=== PATIENT | male | born 1955 | race Caucasian/White ===

== ENCOUNTER 2018-03-13 03:09 | Observation (INO) | payer OTHER ==
[2018-03-13] MEDS ORDERED: NA CHLORIDE 0.9% 1,000 ML ONE (03:31)
[2018-03-13 03:58] LABS: Absolute Lymphocytes (CBC) 1.6 K/uL (0.7-4.9); Absolute Monocytes 0.6 K/uL (0.1-1.3); Absolute Neutrophil 5.9 K/uL (1.8-8.0); Eosinophils % 5.3 % (0-4.4); Lymphocytes % 18.7 % (15.3-44.8); MCH 32.9 pg (27.0-35.0); MCV 92.8 fL (80-100); MPV 9.3 fL (7.6-11.3); Monocytes % 6.4 % (3.3-12.3); RBC Red Blood Cell Count 4.74 M/uL (4.33-5.43)
--- NOTE | 2018-03-13 03:58 | ER ---
Nurse's Notes [facility] Name: Kd Campbell Age: 62 yrs Sex: Male : 1955 Arrival Date: 03/13/2018 Time: 03:11 Bed 4 Private MD: Diagnosis: Syncope and collapse;Chest pain, unspecified;Unspecified kidney failure;Non-ST elevation (NSTEMI) myocardial infarction Presentation: 03/13 03:11 Presenting complaint: Patient states: he was working on his computer and began to feel aa1 funny so he got up to get a glass of milk and the next thing he remembers is waking up on the kitchen floor. States, "I think my blood pressure bottomed out." Denies any injuries. Transition of care: patient was not received from another setting of care. Onset of symptoms was March 13, 2018. Risk Assessment: Do you want to hurt yourself or someone else? Patient reports no desire to harm self or others. Initial Sepsis Screen: Does the patient meet any 2 criteria? No. Patient's initial sepsis screen is negative. Does the patient have a suspected source of infection? No. Patient's initial sepsis screen is negative. Care prior to arrival: Glucose check: 144. 03:11 Method Of Arrival: EMS: [facility] aa1 03:11 Acuity: VOLODYMYR 3 aa1 Triage Assessment: 03:19 General: Appears in no apparent distress. comfortable, Behavior is calm, cooperative, aa1 appropriate for age. 03:45 Neuro: Reports a syncopal episode. jd3 Historical: - Allergies: 03:19 bee venom (honey bee); aa1 03:19 Clonidine; aa1 03:19 Lexapro; aa1 03:19 PENICILLINS; aa1 03:19 Wellbutrin; aa1 - Home Meds: 03:19 hydralazine 50 mg oral tab 1 tab 2 times per day [Active]; Albuterol Inhl [Active]; aa1 carvedilol 25 mg oral tab 1 tab 2 times per day [Active]; isosorbide mononitrate 30 mg Oral Tb24 1 tab once daily [Active]; hydrochlorothiazide 25 mg Oral tab 1 tab once daily [Active]; Nifedipine ER Oral 90 mg daily [Active]; atorvastatin 40 mg oral tab 1 tab once daily [Active]; - PMHx: 03:19 Anxiety; Hypertension; MANIC DEPRESSION; pnemonia; aa1 - PSHx: 03:19 Angioplasty; aa1 - Immunization history:: Pneumococcal vaccine is up to date, Flu vaccine is up to date. - Social history:: Smoking status: Patient uses tobacco products, chewing tobacco. - Ebola Screening: : No symptoms or risks identified at this time. - Family history:: not pertinent. Screenin:44 Abuse screen: Denies threats or abuse. Nutritional screening: No deficits noted. jd3 Tuberculosis screening: No symptoms or risk factors identified. Fall Risk Fall in past 12 months (25 points). IV access (20 points). Ambulatory Aid- None/Bed Rest/Nurse Assist (0 pts). Gait- Normal/Bed Rest/Wheelchair (0 pts) Mental Status- Oriented to own ability (0 pts). Total Alcaraz Fall Scale indicates High Risk Score (45 or more points). Fall prevention measures have been instituted. Side Rails Up X 2 Placed Close to Nursing Station Frequent Obs/Assessments Occuring Family Present and informed to notify staff if the need to leave the bedside. Assessment: 03:42 General: Appears uncomfortable, Behavior is cooperative, appropriate for age. Pain: jd3 Complains of pain in right shoulder, left shoulder and chest Pain currently is 5 out of 10 on a pain scale. Quality of pain is described as aching, pressure, Is intermittent. Neuro: Level of Consciousness is awake, alert, obeys commands, Oriented to person, place, time, situation, Moves all extremities. Speech is normal, Facial symmetry appears normal, Pupils are PERRLA, Intact. Cardiovascular: Heart tones S1 S2 present Capillary refill < 3 seconds Patient's skin is warm and dry. Rhythm is regular. Respiratory: Airway is patent Respiratory effort is even, unlabored, Respiratory pattern is regular, symmetrical, Breath sounds are clear bilaterally. GI: Abdomen is round Bowel sounds present X 4 quads. : No signs and/or symptoms were reported regarding the genitourinary system. EENT: No signs and/or symptoms were reported regarding the EENT system. Derm: Skin is intact, Skin is dry, Skin is normal, Skin temperature is warm. Musculoskeletal: Circulation, motion, and sensation intact. Range of motion: intact in all extremities. 05:21 Reassessment: Patient appears in no apparent distress at this time. Patient and/or jd3 family updated on plan of care and expected duration. Pain level reassessed. Patient is alert, oriented x 3, equal unlabored respirations, skin warm/dry/pink. 06:36 Reassessment: Patient appears in no apparent distress at this time. Patient and/or jd3 family updated on plan of care and expected duration. Pain level reassessed. Patient is alert, oriented x 3, equal unlabored respirations, skin warm/dry/pink. pt reported understanding of need for admission. Vital Signs: 03:19 BP 181 / 96; Pulse 73; Resp 18; Temp 97.6; Pulse Ox 98% on R/A; Weight 92.53 kg; Height aa1 5 ft. 6 in. (167.64 cm); Pain 4/10; 05:20 BP 135 / 77; Pulse 64; Resp 17 S; Pulse Ox 97% on R/A; jd3 06:35 BP 163 / 77; Pulse 74; Resp 16 S; Pulse Ox 98% on R/A; jd3 03:19 Body Mass Index 32.93 (92.53 kg, 167.64 cm) aa1 ED Course: 03:11 Patient arrived in ED. aa1 03:13 Triage completed. aa1 03:15 X-ray completed. Portable x-ray completed in exam room. Patient tolerated procedure kw well. 03:16 XRAY Chest (1 view) In Process Unspecified. EDMS 03:17 Jameson Garcia MD is Attending Physician. cp 03:19 Arm band placed on right wrist. Patient placed in an exam room, on a stretcher. aa1 03:35 Inserted saline lock: 20 gauge in left antecubital area, using aseptic technique. Blood jd3 collected. placed by Michael CASTRO. 03:40 Osmany Corea RN is Primary Nurse. jd3 03:45 Patient has correct armband on for positive identification. Placed in gown. Bed in low jd3 position. Call light in reach. Side rails up X2. Adult w/ patient. 03:55 Karma Vera MD is Hospitalizing Provider. [facility] 05:00 Patient moved to SC via wheelchair. kw1 05:21 CT completed. Patient tolerated procedure well. Patient moved back from CT. kw1 06:33 No provider procedures requiring assistance completed. Patient admitted, IV remains in jd3 place. Administered Medications: 03:40 Drug: NS 0.9% 1000 ml Route: IV; Rate: 125 ml/hr; Site: left antecubital; j 04:52 Follow up: Response: No adverse reaction; IV Status: Infusion continued upon admission jd3 04:20 Drug: Xopenex 1.25 mg Route: Inhalation; jd3 04:51 Follow up: Response: No adverse reaction jd3 04:20 Drug: AtroVENT Aerosol 0.5 mg Route: Inhalation; jd3 04:51 Follow up: Response: No adverse reaction jd3 04:20 Drug: Aspirin 162 mg Route: PO; jd3 04:52 Follow up: Response: No adverse reaction jd3 06:18 Drug: Potassium Effervescent Tablet 25 mEq Route: PO; 06:36 Follow up: Response: No adverse reaction jd3 06:18 Drug: Lovenox 1 mg/kg {Note: per Corona ACSTRO.} Route: Sub-Q; Site: abdomen; 06:36 Follow up: Response: No adverse reaction [facility]ma Point of Care Testin:34 none ordered jcassi Ranges: Outcome: 03:57 Decision to Hospitalize by Provider. diana 06:33 Admitted to Med/surg accompanied by nurse, via wheelchair, room 206, Report called to uzma Berrios RN 06:33 Condition: stable 06:33 Instructed on the need for admit, Demonstrated understanding of instructions. 06:37 Patient left the ED. uzma Signatures: Dispatcher [employer] EDMS Day Ugarte, RN RN aa1 Jameson Garcia MD MD cha Chretien, Felicia, RN RN fc Whitley, Kimberlee kw Page, Corey, PA PA cp Davies, Jonathon, RN RN jd3 Wilhelm, Kimberly kw1
--- NOTE | 2018-03-13 03:58 | EDPHYS ---
Physician Documentation [facility] Name: Kd Campbell Age: 62 yrs Sex: Male : 1955 Arrival Date: 03/13/2018 Time: 03:11 Bed 4 Private MD: ED Physician Jameson Garcia HPI: 03/13 03:50 This 62 yrs old Male presents to ER via EMS with complaints of Syncope. diana 03:50 The patient has experienced syncope, became unresponsive, collapsed. Onset: The diana symptoms/episode began/occurred just prior to arrival, this morning. Duration: This was a single episode, that lasted an unknown period of time. Context: the episode(s) was witnessed, by no one, occurred at home, occurred while the patient was walking, Just prior to the episode the patient experienced no apparent symptoms. Associated injury: The patient did not suffer any apparent associated injury. Associated signs and symptoms: Pertinent positives: pleuritic chest pain. The patient has experienced similar episodes in the past, a few times. Historical: - Allergies: 03:19 bee venom (honey bee); aa1 03:19 Clonidine; aa1 03:19 Lexapro; aa1 03:19 PENICILLINS; aa1 03:19 Wellbutrin; aa1 - Home Meds: 03:19 hydralazine 50 mg oral tab 1 tab 2 times per day [Active]; Albuterol Inhl [Active]; aa1 carvedilol 25 mg oral tab 1 tab 2 times per day [Active]; isosorbide mononitrate 30 mg Oral Tb24 1 tab once daily [Active]; hydrochlorothiazide 25 mg Oral tab 1 tab once daily [Active]; Nifedipine ER Oral 90 mg daily [Active]; atorvastatin 40 mg oral tab 1 tab once daily [Active]; - PMHx: 03:19 Anxiety; Hypertension; MANIC DEPRESSION; pnemonia; aa1 - PSHx: 03:19 Angioplasty; aa1 - Immunization history:: Pneumococcal vaccine is up to date, Flu vaccine is up to date. - Social history:: Smoking status: Patient uses tobacco products, chewing tobacco. - Ebola Screening: : No symptoms or risks identified at this time. - Family history:: not pertinent. ROS: 03:50 Constitutional: Negative for fever, chills, and weight loss, Eyes: Negative for injury, diana pain, redness, and discharge, ENT: Negative for injury, pain, and discharge, Neck: Negative for injury, pain, and swelling, Respiratory: Negative for shortness of breath, cough, wheezing, and pleuritic chest pain, Abdomen/GI: Negative for abdominal pain, nausea, vomiting, diarrhea, and constipation, Back: Negative for injury and pain, : Negative for injury, bleeding, discharge, and swelling, MS/Extremity: Negative for injury and deformity, Skin: Negative for injury, rash, and discoloration, Psych: Negative for depression, anxiety, suicide ideation, homicidal ideation, and hallucinations, Allergy/Immunology: Negative for hives, rash, and allergies, Endocrine: Negative for neck swelling, polydipsia, polyuria, polyphagia, and marked weight changes, Hematologic/Lymphatic: Negative for swollen nodes, abnormal bleeding, and unusual bruising. 03:50 Cardiovascular: Positive for chest pain. 03:50 Respiratory: Positive for cough, with no reported sputum. Exam: 03:50 Constitutional: This is a well developed, well nourished patient who is awake, alert, diana and in no acute distress. Head/Face: Normocephalic, atraumatic. Eyes: Pupils equal round and reactive to light, extra-ocular motions intact. Lids and lashes normal. Conjunctiva and sclera are non-icteric and not injected. Cornea within normal limits. Periorbital areas with no swelling, redness, or edema. ENT: Nares patent. No nasal discharge, no septal abnormalities noted. Tympanic membranes are normal and external auditory canals are clear. Oropharynx with no redness, swelling, or masses, exudates, or evidence of obstruction, uvula midline. Mucous membranes moist. Neck: Trachea midline, no thyromegaly or masses palpated, and no cervical lymphadenopathy. Supple, full range of motion without nuchal rigidity, or vertebral point tenderness. No Meningismus. Chest/axilla: Normal chest wall appearance and motion. Nontender with no deformity. No lesions are appreciated. Respiratory: Lungs have equal breath sounds bilaterally, clear to auscultation and percussion. No rales, rhonchi or wheezes noted. No increased work of breathing, no retractions or nasal flaring. Abdomen/GI: Soft, non-tender, with normal bowel sounds. No distension or tympany. No guarding or rebound. No evidence of tenderness throughout. Back: No spinal tenderness. No costovertebral tenderness. Full range of motion. Male : Normal genitalia with no discharge or lesions. Skin: Warm, dry with normal turgor. Normal color with no rashes, no lesions, and no evidence of cellulitis. MS/ Extremity: Pulses equal, no cyanosis. Neurovascular intact. Full, normal range of motion. Psych: Awake, alert, with orientation to person, place and time. Behavior, mood, and affect are within normal limits. 03:50 Cardiovascular: Rate: normal, Rhythm: regular, Pulses: Pulses are 4+ in bilateral radial, brachial, femoral, popliteal, posterior tibial and and dorsalis pedis arteries.. Heart sounds: normal, Edema: is not appreciated, JVD: is not appreciated. 03:52 Musculoskeletal/extremity: DVT Exam: No signs of deep vein thrombosis. no pain, no diana swelling, no tenderness, negative Homans' sign noted on exam, no appreciated bluish discoloration, no erythema, no increased warmth. Vital Signs: 03:19 BP 181 / 96; Pulse 73; Resp 18; Temp 97.6; Pulse Ox 98% on R/A; Weight 92.53 kg; Height aa1 5 ft. 6 in. (167.64 cm); Pain 4/10; 05:20 BP 135 / 77; Pulse 64; Resp 17 S; Pulse Ox 97% on R/A; jd3 06:35 BP 163 / 77; Pulse 74; Resp 16 S; Pulse Ox 98% on R/A; jd3 03:19 Body Mass Index 32.93 (92.53 kg, 167.64 cm) aa1 MDM: 03:25 Patient medically screened. [facility] 03:58 Data reviewed: vital signs, nurses notes, lab test result(s), EKG, radiologic studies, [facility] CT scan, plain films. 03/13 03:13 Order name: Basic Metabolic Panel; Complete Time: 06:03 cp 03/13 03:13 Order name: BNP; Complete Time: 06:03 cp 03/13 03:13 Order name: CBC with Diff; Complete Time: 06:03 cp 03/13 03:13 Order name: Ckmb; Complete Time: 06:03 cp 03/13 03:13 Order name: CPK; Complete Time: 06: cp 03/13 03:13 Order name: LFT's; Complete Time: 06:03 cp 03/13 03:13 Order name: Magnesium; Complete Time: 06:03 03/13 03:13 Order name: PT-INR; Complete Time: 06:03 03/13 03:13 Order name: Ptt, Activated; Complete Time: 06:03 03/13 03:13 Order name: Troponin (emerg Dept Use Only); Complete Time: 06:03 03/13 03:27 Order name: Urine Culture [facility] 03/13 03:29 Order name: Lipase; Complete Time: 06:03 [facility] 03/13 05:31 Order name: Urine Dipstick--Ancillary (enter results) rg2 03/13 06:14 Order name: Urine Dipstick-Ancillary EDMS 03/13 03:13 Order name: XRAY Chest (1 view) 03/13 03:13 Order name: EKG; Complete Time: 03:13 cp 03/13 03:13 Order name: Cardiac monitoring; Complete Time: 03:28 cp 03/13 03:13 Order name: EKG - Nurse/Tech; Complete Time: 03:28 cp 03/13 03:13 Order name: IV Saline Lock; Complete Time: 03:40 cp 03/13 03:13 Order name: Labs collected and sent; Complete Time: 03:40 cp 03/13 03:27 Order name: CT Head Brain wo Cont [facility] 03/13 03:50 Order name: CT Aorta for Dissection [facility] 03/13 04:03 Order name: Echo with Doppler [facility] 03/13 04:03 Order name: Carotid Artery Bilateral EDMS 03/13 03:13 Order name: O2 Per Protocol; Complete Time: 03:28 cp 03/13 03:13 Order name: O2 Sat Monitoring; Complete Time: 03:28 cp 03/13 03:13 Order name: Urine Dipstick-Ancillary (obtain specimen); Complete Time: 05:24 cp Administered Medications: 03:40 Drug: NS 0.9% 1000 ml Route: IV; Rate: 125 ml/hr; Site: left antecubital; jd3 04:52 Follow up: Response: No adverse reaction; IV Status: Infusion continued upon admission jd3 04:20 Drug: Xopenex 1.25 mg Route: Inhalation; jd3 04:51 Follow up: Response: No adverse reaction jd3 04:20 Drug: AtroVENT Aerosol 0.5 mg Route: Inhalation; jd3 04:51 Follow up: Response: No adverse reaction jd3 04:20 Drug: Aspirin 162 mg Route: PO; jd3 04:52 Follow up: Response: No adverse reaction jd3 06:18 Drug: Potassium Effervescent Tablet 25 mEq Route: PO; 06:36 Follow up: Response: No adverse reaction jd3 06:18 Drug: Lovenox 1 mg/kg {Note: per Corona CASTOR.} Route: Sub-Q; Site: abdomen; 06:36 Follow up: Response: No adverse reaction jd3 Point of Care Testin:34 none ordered jd3 Ranges: Critical Glucose Levels:Adult <50 mg/dl or >400 mg/dl <40 mg/dl or >180 mg/dl Disposition: 03/13/18 03:57 Hospitalization ordered by Karma Vera for Inpatient Admission. Preliminary diagnosis are Syncope and collapse, Chest pain, unspecified, Unspecified kidney failure, Non-ST elevation (NSTEMI) myocardial infarction. - Bed requested for Telemetry/MedSurg (observation). - Status is Inpatient Admission. jd3 - Condition is Stable. - Problem is new. - Symptoms have improved. UTI on Admission? No Signatures: Dispatcher [employer] EDMS Sara Barbour RN RN kl Kern, Alissa, RN RN aa1 Jameson Garcia MD MD cha Chretien, Felicia, RN RN fc Page, Corey, PA PA cp Davies, Jonathon, RN RN jd3 Corrections: (The following items were deleted from the chart) 05:14 03:57 Hospitalization Ordered by Karma Vera MD for Inpatient Admission. Preliminary diagnosis is Syncope and collapse; Chest pain, unspecified. Bed requested for Telemetry/MedSurg (observation). Status is Inpatient Admission. Condition is Stable. Problem is new. Symptoms have improved. UTI on Admission? No. diana 06:09 05:14 03/13/2018 03:57 Hospitalization Ordered by Karma Vera MD for Inpatient [facility] Admission. Preliminary diagnosis is Syncope and collapse; Chest pain, unspecified. Bed requested for Telemetry/MedSurg (observation). Status is Inpatient Admission. Condition is Stable. Problem is new. Symptoms have improved. UTI on Admission? No. kl 06:10 06:09 03/13/2018 03:57 Hospitalization Ordered by Karma Vera MD for Inpatient diana Admission. Preliminary diagnosis is Syncope and collapse; Chest pain, unspecified; Unspecified kidney failure. Bed requested for Telemetry/MedSurg (observation). Status is Inpatient Admission. Condition is Stable. Problem is new. Symptoms have improved. UTI on Admission? No. diana 06:37 06:10 03/13/2018 03:57 Hospitalization Ordered by Karma Vera MD for Inpatient jd3 Admission. Preliminary diagnosis is Syncope and collapse; Chest pain, unspecified; Unspecified kidney failure; Non-ST elevation (NSTEMI) myocardial infarction. Bed requested for Telemetry/MedSurg (observation). Status is Inpatient Admission. Condition is Stable. Problem is new. Symptoms have improved. UTI on Admission? No. diana
[2018-03-13 03:59] LABS: Protime INR 0.93
[2018-03-13] MEDS ORDERED: IPRATROPIUM BROM 0.5MG/2.5ML ONE (03:59)
[2018-03-13] MEDS ORDERED: LEVALBUTEROL 1.25 MG/3 ML NEB ONE (03:59)
[2018-03-13] MEDS ORDERED: ASPIRIN 81 MG CHEWABLE TABLET ONE (04:02)
[2018-03-13 04:09] LABS: Potassium 3.2 mEq/L (3.6-5.0)
[2018-03-13 04:11] LABS: CKMB Creatine Kinase MB 3.2 ng/ml (0.3-4.0)
[2018-03-13 04:15] LABS: Albumin 4.8 g/dL (3.2-5.5); Bilirubin Direct 0.2 mg/dL (0-0.2); Bilirubin Total 1.8 mg/dL (0.3-1.2)
[2018-03-13 04:16] LABS: Magnesium 1.9 mg/dL (1.8-2.5)
--- NOTE | 2018-03-13 05:09 | P.HP ---
Certification for Inpatient Patient admitted to: Observation With expected LOS: <2 Midnights Practitioner: I am a practitioner with admitting privileges, knowledge of patient current condition, hospital course, and medical plan of care. Services: Services provided to patient in accordance with Admission requirements found in Title 42 Section 412.3 of the Code of Federal Regulations Patient History Date of Service: 03/13/18 Reason for admission: syncope History of Present Illness: Mr Campbell is a 62 years old male with history of HTN, CAD s/p stent placement, CKD, who yesterday morning had an episode of chest pain lasting for 20 minutes and resolving by itself. The pain was located in his left side of the chest, radiated to left shoulder and back, described as burning sensation, 7/10 of intensity. Then about 1:30 AM of today, he was on the computer, start to feel funny, had chest pain again, he went to the kitchen to drink some milk and subsequently collapse. He woke up on the floor. He denied any palpitation before passing out. At arrival to ED he was still complaining of chest pain, trop I 0.13. He states that about 2300 last night took Carvedilol and then cough syrup, and this combination drop his blood pressure and for that reason he collapsed. Allergies venom-honey bee [bee venom (honey bee)] Allergy (Intermediate, Verified 03:10) Anaphylaxis Penicillins Allergy (Mild, Verified 09/26/12 21:52) Rash bupropion [From Wellbutrin] Allergy (Verified 04/14/16 23:15) Unknown bupropion HCl [From Zyban] Adverse Reaction (Intermediate, Verified 04/15/15 02: 58) Nausea/Vomiting trazodone Adverse Reaction (Intermediate, Verified 01/31/12 03:11) Rash clonidine Adverse Reaction (Verified 04/15/15 02:58) Shortness of breath cyclobenzaprine HCl [From Flexeril] Adverse Reaction (Verified 04/15/15 02:58) Nausea/Vomiting escitalopram oxalate [From Lexapro] Adverse Reaction (Verified 01/31/12 03:11) Rash Home Medications: LORazepam [Ativan*] 1 mg PO Q12HR 04/14/16 Amlodipine [Norvasc*] 10 mg PO DAILY #30 tab 04/17/16 Benazepril HCl 40 mg PO DAILY #30 tablet 04/17/16 Hydralazine HCl [Apresoline] 50 mg PO TID #90 tablet 04/17/16 Metoprolol Tartrate [Lopressor] 100 mg PO BID #60 tablet 04/17/16 hydroCHLOROthiazide [Hydrodiuril*] 25 mg PO DAILY #30 tab 04/17/16 - Past Medical/Surgical History Diabetic: No -: HTN -: Depression -: Anxiety -: Pnemonia -: CAD -: Angioplasty - Family History Mother -: Hypertension, Cancer Father -: Heart disease - Social History Smoking Status: Current some day smoker Counseled patient to stop smoking for: less than 10 minutes Alcohol use: No CD- Drugs: No Caffeine use: Yes Place of Residence: Home Review of Systems 10-point ROS is otherwise unremarkable Physical Examination - Physical Exam General: Alert, In no apparent distress HEENT: Atraumatic, PERRLA, Mucous membr. moist/pink, EOMI, Sclerae nonicteric Neck: Supple, 2+ carotid pulse no bruit, No LAD, Without JVD or thyroid abnormality Respiratory: Clear to auscultation bilaterally, Normal air movement Cardiovascular: Regular rate/rhythm, Normal S1 S2 Gastrointestinal: Normal bowel sounds, No tenderness Musculoskeletal: No tenderness Integumentary: No rashes Neurological: Normal speech, Normal strength at 5/5 x4 extr, Normal tone, Normal affect Lymphatics: No axilla or inguinal lymphadenopathy - Studies Laboratory Data (last 24 hrs) 03/13/18 03:35: Lipase 34 03/13/18 03:35: PT 11.0, INR 0.93, APTT 27.3 03/13/18 03:35: WBC 8.6, Hgb 15.6, Hct 44.0, Plt Count 198 03/13/18 03:35: B-Natriuretic Peptide 50 03/13/18 03:35: Sodium 134 L, Potassium 3.2 L, BUN 36 H, Creatinine 1.57 H, Glucose 114, Magnesium 1.9, Total Bilirubin 1.8 H, AST 31, ALT 26, Alkaline Phosphatase 67 Assessment and Plan - Problems (Diagnosis) (1) Syncope Current Visit: Yes Status: Acute Qualifiers: Syncope type: unspecified Qualified Code(s): R55 - Syncope and collapse (2) CAD (coronary artery disease) Current Visit: Yes Status: Acute Qualifiers: Coronary Disease-Associated Artery/Lesion type: [place] artery [place] vs. transplanted heart: [place] heart Associated angina: angina presence unspecified Qualified Code(s): I25.10 - Atherosclerotic heart disease of [place] coronary artery without angina pectoris (3) HTN (hypertension) Current Visit: Yes Status: Acute Qualifiers: Hypertension type: essential hypertension Qualified Code(s): I10 - Essential (primary) hypertension (4) CKD (chronic kidney disease), stage III Onset Date: 04/16/16 Current Visit: No Status: Acute (5) Chest pain Onset Date: 04/16/16 Current Visit: No Status: Acute Qualifiers: Chest pain type: precordial pain Qualified Code(s): R07.2 - Precordial pain - Plan Mr Campbell will be admitted to the hospital due to syncope. He complain of chest pain and has history of CAD. Trop I is elevated, EKG shows SR with Q waves on inferior leads. He has CKD, will order serial cardiac enzymes to evaluate progress, EKG, consult cardiology. Pending CT angio. - Advance Directives Does patient have a Living Will: No Does patient have a Durable POA for Healthcare: No - Code Status/Comfort Care Code Status Assessed: Yes Code Status: Full Code
[2018-03-13] MEDS ORDERED: POTASSIUM 25 MEQ EFFERV TAB ONE (06:10)
[2018-03-13 06:14] LABS: Urine Blood NEGATIVE (NEG); Urine Glucose NEGATIVE (NEG); Urine Protein 2+ (NEG); Urine Specific Gravity 1.015 (1.005-1.030)
[2018-03-13] MEDS ORDERED: ENOXAPARIN 100 MG/ML SYR SQ ONE (06:15)
[2018-03-13 06:45] VITALS: BMI 31.1
[2018-03-13 07:00] VITALS: O2SAT 98
[2018-03-13] MEDS ORDERED: ACETAMINOPHEN 500 MG TAB PO PRN (07:21)
--- NOTE | 2018-03-13 08:24 | EKG ---
Test Date: 2018-03-13 Test Time: 03:25:09 Supervisor Microwave: ALVA MEASUREMENT RESULTS: Intervals: Rate: 71 OK: 164 QRSD: 80 QT: 414 QTc: 449 [place]: P: 44 OK: 164 QRS: -9 T: 70 INTERPRETIVE STATEMENTS: Normal sinus rhythm Inferior infarct, age undetermined Possible Anterior infarct, age undetermined Abnormal ECG Compared to ECG 04/15/2016 05:53:14 Myocardial infarct finding now present Left ventricular hypertrophy no longer present ST (T wave) deviation no longer present Possible ischemia no longer present Prolonged QT interval no longer present Electronically Signed On 03-13-18 08:24:21 CDT by Ehsan Ramirez
[2018-03-13 08:37] LABS: HDL Cholesterol 38 mg/dL (27-67); LDL Cholesterol, Calculated ND (<130)
[2018-03-13 08:57] LABS: LDL, Direct 65 mg/dl (<130)
[2018-03-13] MEDS ORDERED: ENOXAPARIN 80 MG/0.8 ML SQ SCH ×2 (09:00→18:00)
--- NOTE | 2018-03-13 09:00 | RAD REPORT ---
EXAM DESCRIPTION: CT - Head Brain Wo Cont - 03/13/2018 7:17 am CLINICAL HISTORY: Syncope COMPARISON: 04/16/2016, 04/14/2016 TECHNIQUE: All CT scans are performed using dose optimization technique as appropriate and may inclu de automated exposure control or mA/KV adjustment according to patient size. FINDINGS: No intracranial hemorrhage, hydrocephalus or extra-axial fluid collection.Moderate general ized brain atrophy is present with moderate periventricular and deep white matter chronic microvascul ar ischemic changes.No areas of brain edema or evidence of midline shift. The paranasal sinuses and mastoids are clear. The calvarium is intact. IMPRESSION: No acute intracranial abnormality. Moderately progressive periventricular and deep white matter chronic microvascular ischemic changes s uspected since 2016. Followup MR imaging of the brain may be considered.
--- NOTE | 2018-03-13 09:48 | RAD REPORT ---
EXAM DESCRIPTION: RAD - Chest Single View - 03/13/2018 3:18 am CLINICAL HISTORY: Syncope, chest pain. COMPARISON: 04/14/2016 FINDINGS: Portable technique limits examination quality. The lungs are grossly clear. The heart is upper limit normal in size. No displaced fractures. IMPRESSION: No acute intrathoracic process suspected.
--- NOTE | 2018-03-13 10:13 | RAD REPORT ---
EXAM DESCRIPTION: CT - Angio Aorta For Dissection - 03/13/2018 7:19 am CLINICAL HISTORY: Chest pain radiating to the back. CHEST PAIN COMPARISON: CTANGIO AORTA FOR DISSECTION dated 08/26/2014 TECHNIQUE: CT angiography of the aorta was performed with volume rendering. All CT scans are performed using dose optimization technique as appropriate and may include automated exposure control or mA/KV adjustment according to patient size. FINDINGS: A left aortic arch is present with normal branching pattern of the great vessels.No acute aortic finding is seen such as aneurysm, penetrating ulcer or dissection. The celiac axis, SMA, ADALGISA and renal arteries are widely patent. No evidence of pulmonary embolism. Small thyroid nodule inferior left lobe appears unchanged. Mildly prominent lymph nodes in the medias tinum and hilar regions also appears stable since 2014. The lungs are clear. Diffuse fatty liver is seen. Tiny cyst is likely present in the right lobe of the liver superiorly. N o aggressive liver lesion or biliary dilatation.The spleen, pancreas, left adrenal gland and kidneys are within normal limits for arterial phase imaging.Stable right adrenal in nodule since comparative study. No bowel obstruction, free fluid or abscess.Sigmoid diverticulosis coli without diverticulitis. Sarina l appendix.No pathologic enlarged lymphadenopathy identified. No fracture or worrisome bone lesion seen. IMPRESSION: No acute aortic finding is demonstrated.
--- NOTE | 2018-03-13 10:41 | RAD REPORT ---
EXAM DESCRIPTION: VAS - CP - 03/13/2018 9:04 am CLINICAL HISTORY: syncope COMPARISON: CAROTID ARTERY BILATERAL dated 05/15/2012 TECHNIQUE: Real-time sonographic evaluation of both carotid systems was performed. Doppler interroga tion was performed with waveform tracing bilaterally. FINDINGS: Normal high resistance waveforms are noted in both external carotid arteries. The common c arotid arteries and internal carotid arteries show normal low resistance waveforms. Small mild hard plaque seen proximal left common carotid artery. No significant internal carotid esthela ry plaquing. Peak systolic and end diastolic velocity values and the ICA/CCA ratios are in the non-he modynamically significant range. Antegrade flow seen in both vertebral arteries. IMPRESSION: No significant atherosclerotic changes noted. No evidence of a hemodynamically significant stenosis.
--- NOTE | 2018-03-13 12:45 | ECHO ---
HEIGHT: 5 ft 6 in WEIGHT: 193 lb 1.6 oz DATE OF STUDY: 03/13/[address]: Jameson Garcia MD 2-DIMENSIONAL: YES M.MODE: YES DOPPLER: YES COLOR FLOW: YES TDS: NO PORTABLE: NO DEFINITY: NO BUBBLE STUDY: NO DIAGNOSIS: SYNCOPE CARDIAC HISTORY: CATHERIZATION: NO SURGERY: NO PROSTHETIC VALVE: NO PACEMAKER: NO MEASUREMENTS (cm) DIASTOLIC (NORMALS) SYSTOLIC (NORMALS) IVSd 1.3 (0.6-1.2) LA Diam 3.9 (1.9-4.0) LVEF 69% LVIDd 4.1 (3.5-5.7) LVIDs 2.5 (2.0-3.5) %FS 38% LVPWd 1.3 (0.6-1.2) Ao Diam 3.2 (2.0-3.7) 2 DIMENSIONAL ASSESSMENT: RIGHT ATRIUM: NORMAL LEFT ATRIUM: NORMAL RIGHT VENTRICLE: NORMAL LEFT VENTRICLE: NORMAL TRICUSPID VALVE: NORMAL MITRAL VALVE: NORMAL PULMONIC VALVE: NORMAL AORTIC VALVE: NORMAL PERICARDIAL EFFUSION: NONE AORTIC ROOT: NORMAL LEFT VENTRICULAR WALL MOTION: NORMAL. DOPPLER/COLOR FLOW: NORMAL COMMENTS: NORMAL 2D ECHO WITH DOPPLER. NO WALL MOTION ABNORMALITY. NO EFFUSION. TECHNOLOGIST: CELI RAYMOND
[2018-03-13 17:22] VITALS: BP 178/82; TEMP 97.6
[2018-03-14] MEDS ORDERED: NICOTINE 21 MG/PAT TD SCH (09:00)
--- NOTE | 2018-03-14 12:55 | CON ---
Date of Consultation: 03/13/2018 Reason For Consultation: Chest pain and presyncope. Additional Admitting Physician: Dr. Ornelas. History Of Present Illness: Mr. Campbell is a 62-year-old white male, has had a normal heart catheteri zation in the past. Has a history of hypertension, for which he takes Coreg and hydrochlorothiazide. Has multiple allergies. Apparently, he had sharp chest pain that is stabbing, pleuritic type with some allergies and lasted about 8 hours. He took a nap, awoke, took his Coreg, and then took some ov [id number] allergy medication, after which he felt like he was going to faint. Denied PND, ortho pnea, pedal edema, palpitation. Denied any nausea, vomiting, diaphoresis. Denied any fever or chill s. Past Medical History: Positive for asthma, hypertension, and diabetes that is well controlled on med ication. Medications: At home include Coreg and hydrochlorothiazide. Review of Systems: Negative. Social History: Negative. Family History: Negative. Allergies: HE IS ALLERGIC TO ZYBAN, CLONIDINE, TRAZODONE, LEXAPRO, WELLBUTRIN, AND HONEY BEE VENOM. Physical Examination: Vital signs: Stable, afebrile. HEENT: Negative. Neck: Supple. No bruits. Chest: Clear to auscultation and percussion. Cardiac: revealed a regular rhythm and rate without any murmurs, gallops, or rubs. Abdomen: Benign. Extremities: Revealed no clubbing, cyanosis, or edema. Laboratory Data: All within normal limit. Echocardiogram was normal. Carotid Doppler was unremarka ble. Impression And Plan: 1.I think Mr. Campbell's symptoms may have been secondary to orthostatic hypotension. As far as the p resyncope is concerned may have been a combination of Coreg, hydrochlorothiazide, and allergy medicin es. I would not recommend any further cardiac workup. He had a negative heart catheterization in past. 2.Hypertension, well controlled. 3.Diabetes, well controlled. He can go home on as far as I am concerned. His chest pain is definitely pleuritic and noncardiac an d does not require a stress test at this point. MARIE/RAYMOND Voice ID: [id number] Report ID: [id number]
== END 2018-03-13 17:48 | disposition home or self-care (01) ==
LOC: ER 03:09 → ERHOLD 04:00 → 2ND 05:59
PROVIDERS: ADMIT Internal Medicine; ATTEND Internal Medicine
DX: R55 Syncope and collapse (principal); R07.9 Chest pain, unspecified; I25.10 Atherosclerotic heart disease of native coronary artery without angina pectoris; I12.9 Hypertensive chronic kidney disease with stage 1 through stage 4 chronic kidney disease, or unspecified chronic kidney disease; N18.3 Chronic kidney disease, stage 3 (moderate); Z95.5 Presence of coronary angioplasty implant and graft; Z88.0 Allergy status to penicillin; Z91.030 Bee allergy status
CPT/HCPCS: 36415; 70450; 71045; 71275; 74175; 80048; 80061; 80076; 81003; 82550; 82553; 83690; 83721; 83735; 83880; 84484 ×2; 85025; 85610; 85730; 87077; 87086; 87088; 87186; 93005; 93306; 93880; 96360; 96372; 99285; J1650 ×2; J7030; Q9967; G0378

== ENCOUNTER 2023-01-22 10:03 | Emergency (ER) | payer OTHER ==
--- OUTSIDE RECORDS SUMMARY | 2023-01-22 10:14 | XMS REPORT | Continuity of Care Document ---
:1955 Author Organization [facility] t Address [address] [place] [address] [place] [id number] Care Team Providers Name Role Phone Jasmin Beverly MD Primary Care Physician Jasmin Beverly MD Attending Clinician PHILLY OLIVAS Attending Clinician Unavailable PHILLY OLIVAS Attending Clinician Unavailable Daria Lilly MD Attending Clinician [phone] JASMIN BEVERLY Attending Clinician Unavailable José Miguel Vital Attending Clinician Jayme Main DO Attending Clinician DARIA LILLY Attending Clinician Unavailable Mannie Harry MD Attending Clinician Abebe LANGFORD, Ishaanut K.HAyo Attending Clinician Payers Payer Name Policy Type Policy Number Effective Date Expiration Date S ource Problems Condition Condition Condition Status Onset Resolution Last Treating Co mments Source Name Details Category Date Date Treatment Clinician Date Cardiac Cardiac Disease Active 2018-09 [facility] angina angina 2- ity of 00:00: [place] 00 [facility] Anxiety Anxiety Disease Active 2018-09 Univers and and 10-26 ity of depression depression 00:00: [place] [facility] Hyperlipid Hyperlipid Disease Active 2018-09 U nivers emia, emia, 10-26 ity of unspecifie unspecifie 00:00[place] d [place] 00 Medical hyperlipid hyperlipid Br anch emia type emia type Panic Panic Disease Active 2018-09 Univers attack attack 1-27 ity of 00:00: [place] 00 Medical [facility] Hypertensi Hypertensi Disease Active 2017-09 U nivers ve urgency ve urgency 0-31 it y of 00:00: [place] 00 Medical [facility] 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 U nivers tive tive 0-30 ity of atheroscle atheroscle 00:00: [place] 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 0-30 ity of hypertensi hypertensi 00:00: [place] [facility] NSTEMI NSTEMI Disease Active Univers (non-ST (non-ST 8-15 ity of elevated elevated 00:00: [place] myocardial myocardial 00 Me dical infarction infarction Br anch ) ) NSTEMI NSTEMI Disease Active Univers (non-ST (non-ST 8-15 ity of elevated elevated 00:00: [place] myocardial myocardial 00 Me dical infarction infarction Br anch ) ) Obesity Obesity Disease Active Univers (BMI (BMI 8-14 ity of 30-39.9) 30-39.9) 00:00: [place] 00 Medical Branch Atypical Atypical Disease Active Unive rs chest pain chest pain 7-21 it y of 00:00: [place] 00 Medical [facility] Allergies, Adverse Reactions, Alerts Allergy Allergy Status Severity Reaction(s) Onset Inactive Treating Comm ents Source Name Type Date Date Clinician Hydralaz Propensi Active Rash 2015-09 Symptoms Univ ers ine ty to 1-25 of ity of adverse 00:00: itching [place] reaction 00 and Medical s swelling Branch HYDRALAZ DRUG Active Rash 2015-09 Univers INE INGREDI 1-25 ity of 00:00: [place] 00 Medical Branch Penicill Propensi Active Other - See Childhoo d Univers in ty to comments 7 allergy, ity of adverse 00:00: "maybe it [place] reaction 00 gives me Medica l s a rash" Branch Clonidin Propensi Active Anaphylaxis U nivers e ty to 7-21 ity of adverse 00:00: [place] reaction 00 Medical s Branch Escitalo Propensi Active Anxiety Unive rs pram ty to 7 ity of Oxalate adverse 00:00: [place] reaction 00 Medical s Branch Penicill Propensi Active Other - See Childhoo d Univers in ty to comments 04-19 allergy, ity of adverse 00:00: "maybe it [place] reaction 00 gives me Medica l s a rash" Branch CLONIDIN DRUG Active Anaphylaxis Uni vers E INGREDI 04-19 ity of 00:00: [place] 00 Medical Branch ESCITALO DRUG Active Anxiety Univers PRAM INGREDI 04-19 ity of OXALATE 00:00: [place] 00 Medical Branch PENICILL DRUG Active Other-Cmnt Univ ers IN INGREDI 04-19 ity of 00:00: [place] 00 Medical Branch Bee Propensi Active Rash Univers Sting / ty to 720 ity of [place] adverse 00:00: [place] reaction 00 Medical s Branch Bupropio Propensi Active Rash Univer s n ty to 04-18 ity of adverse 00:00: [place] reaction 00 Medical s Branch BEE DRUG Active Rash Univers STING / INGREDI 720 ity of VENOM 00:00: [place] 00 Medical Branch BUPROPIO DRUG Active Rash Univers N INGREDI 7-20 ity of 00:00: [place] 00 [facility] Social History Social Habit Start Date Stop Date Quantity Comments Source Exposure to Unable to assess Univers ity of SARS-CoV-2 (event) [facility] Alcohol Comment 60-90 days Universit y of sober, [facility] Alcohol intake 2021-03-16 2021-03-16 0 /d University of 00:00:00 00:00:00 [facility] Tobacco use and 2016-06-08 2016-06-08 User of Universit y of exposure 00:00:00 00:00:00 smokeless [facility] tobacco [place] Cigarettes smoked 2016-06-08 2016-06-08 Univers ity of current (pack per 00:00:00 00:00:00 [facility] ) - Reported Branch Cigarette 2016-06-08 2016-06-08 University of pack-years 00:00:00 00:00:00 [facility] History of tobacco 2015-07-08 Chews Tobacco Uni versity of use 00:00:00 [facility] Sex [birth year] At [birth year] Universit y of 00:00:00 00:00:00 [facility] Smoking Status Start Date Stop Date Source Ex-smoker 2016-06-08 00:00:00 2016-06-08 00:00:00 [facility] [place] [facility] Medications Ordered Filled Start Stop Current Ordering Indication Dosage Frequency Signature Comments Components Source Medication Medication Date Date Medication? Clinician (SIG) Name Name CARVEDILOL Yes [id number] TAKE ONE Univers 25 mg 4-26 (1) ity of tablet 00:00: TABLET(S) [place] 00 BY MOUTH Medical TWICE A Branch DAY WITH MEALS. CARVEDILOL Yes [id number] TAKE ONE Univers 25 mg 4-26 (1) ity of tablet 00:00: TABLET(S) [place] 00 BY MOUTH Medical TWICE A Branch DAY WITH MEALS. CARVEDILOL Yes [id number] TAKE ONE Univers 25 mg 4-26 (1) ity of tablet 00:00: TABLET(S) [place] 00 BY MOUTH Medical TWICE A Branch DAY WITH MEALS. CARVEDILOL Yes [id number] TAKE ONE Univers 25 mg 4-26 (1) ity of tablet 00:00: TABLET(S) [place] 00 BY MOUTH Medical TWICE A Branch DAY WITH MEALS. CARVEDILOL 2020-09 Yes [id number] TAKE ONE Univers 25 mg 1-08 (1) ity of tablet 00:00: TABLET(S) [place] 00 BY MOUTH Medical TWICE A Branch DAY WITH MEALS. CARVEDILOL 2020-09- No [id number] TAKE ONE Univers 25 mg 1-08 04-26 (1) ity of tablet 00:00: 00:00 TABLET(S) [place] 00 :00 BY MOUTH Medical TWICE A Branch DAY WITH MEALS. ISOSORBIDE 2020-09 Yes [id number] TAKE THREE Univers MONONITRATE 0-22 (3) ity of 30 mg 24 hr 00:00: TABLET(S) [place] tablet 00 BY MOUTH Medical DAILY. Branch ISOSORBIDE 2020-09 Yes [id number] TAKE THREE Univers MONONITRATE 0-22 (3) ity of 30 mg 24 hr 00:00: TABLET(S) [place] tablet 00 BY MOUTH Medical DAILY. Branch ISOSORBIDE 2021-1 Yes [id number] TAKE THREE Univers MONONITRATE 0-22 (3) ity of 30 mg 24 hr 00:00: TABLET(S) [place] tablet 00 BY MOUTH Medical DAILY. Branch ISOSORBIDE 1 Yes [id number] TAKE THREE Univers MONONITRATE 0-22 (3) ity of 30 mg 24 hr 00:00: TABLET(S) [place] tablet 00 BY MOUTH Medical DAILY. Branch ISOSORBIDE 1 Yes [id number] TAKE THREE Univers MONONITRATE 0-22 (3) ity of 30 mg 24 hr 00:00: TABLET(S) [place] tablet 00 BY MOUTH Medical DAILY. Branch ISOSORBIDE 1 Yes [id number] TAKE THREE Univers MONONITRATE 0-22 (3) ity of 30 mg 24 hr 00:00: TABLET(S) [place] tablet 00 BY MOUTH Medical DAILY. Branch CARVEDILOL 0 Yes [id number] TAKE ONE Univers 25 mg 7-22 (1) ity of tablet 00:00: TABLET(S) [place] 00 BY MOUTH Medical TWICE A Branch DAY WITH MEALS. CARVEDILOL 0 Yes [id number] TAKE ONE Univers 25 mg 7-22 (1) ity of tablet 00:00: TABLET(S) [place] 00 BY MOUTH Medical TWICE A Branch DAY WITH MEALS. CARVEDILOL 0 Yes [id number] TAKE ONE Univers 25 mg 7-22 (1) ity of tablet 00:00: TABLET(S) [place] 00 BY MOUTH Medical TWICE A Branch DAY WITH MEALS. CARVEDILOL 0 Yes [id number] TAKE ONE Univers 25 mg 7-22 (1) ity of tablet 00:00: TABLET(S) [place] 00 BY MOUTH Medical TWICE A Branch DAY WITH MEALS. CARVEDILOL 2020- No [id number] TAKE ONE Univers 25 mg 7-22 11-08 (1) ity of tablet 00:00: 00:00 TABLET(S) [place] 00 :00 BY MOUTH Medical TWICE A Branch DAY WITH MEALS. isosorbide 0 Yes [id number] TAKE Un javed mononitrate 7-20 THREE (3) ity of 30 mg 24 hr 00:00: TABLET(S) [place] tablet 00 BY MOUTH Medical DAILY. Branch isosorbide 2020-0 Yes [id number] TAKE Un javed mononitrate 7-20 THREE (3) ity of 30 mg 24 hr 00:00: TABLET(S) [place] tablet 00 BY MOUTH Medical DAILY. Branch isosorbide 0 Yes [id number] TAKE Un javed mononitrate 7-20 THREE (3) ity of 30 mg 24 hr 00:00: TABLET(S) [place] tablet 00 BY MOUTH Medical DAILY. Branch isosorbide 2020-0 Yes [id number] TAKE Un javed mononitrate 7-20 THREE (3) ity of 30 mg 24 hr 00:00: TABLET(S) [place] tablet 00 BY MOUTH Medical DAILY. Branch isosorbide 2020- No [id number] TAKE U nivers mononitrate 7-20 10-22 THREE (3) it y of 30 mg 24 hr 00:00: 00:00 TABLET(S) [place] tablet 00 :00 BY MOUTH Medical DAILY. [place] NIFEDIPINE Yes [id number] TAKE ONE Univers XL 60 mg 24 6-22 (1) ity of hr tablet 00:00: TABLET(S) [place] 00 BY MOUTH Medical ONCE A Branch DAY. NIFEDIPINE 0 Yes [id number] TAKE ONE Univers XL 60 mg 24 6-22 (1) ity of hr tablet 00:00: TABLET(S) [place] 00 BY MOUTH Medical ONCE A Branch DAY. NIFEDIPINE 0 Yes [id number] TAKE ONE Univers XL 60 mg 24 6-22 (1) ity of hr tablet 00:00: TABLET(S) [place] 00 BY MOUTH Medical ONCE A Branch DAY. NIFEDIPINE 0 Yes [id number] TAKE ONE Univers XL 60 mg 24 6-22 (1) ity of hr tablet 00:00: TABLET(S) [place] 00 BY MOUTH Medical ONCE A Branch DAY. NIFEDIPINE 0 Yes [id number] TAKE ONE Univers XL 60 mg 24 6-22 (1) ity of hr tablet 00:00: TABLET(S) [place] 00 BY MOUTH Medical ONCE A Branch DAY. NIFEDIPINE 2020-0 Yes [id number] TAKE ONE Univers XL 60 mg 24 6-22 (1) ity of hr tablet 00:00: TABLET(S) [place] 00 BY MOUTH Medical ONCE A Branch DAY. NIFEDIPINE 0 Yes [id number] TAKE ONE Univers XL 60 mg 24 6-22 (1) ity of hr tablet 00:00: TABLET(S) [place] 00 BY MOUTH Medical ONCE A Branch DAY. NIFEDIPINE 2020-0 Yes [id number] TAKE ONE Univers XL 60 mg 24 6-22 (1) ity of hr tablet 00:00: TABLET(S) [place] 00 BY MOUTH Medical ONCE A Branch DAY. NIFEDIPINE 2020-0 Yes [id number] TAKE ONE Univers XL 60 mg 24 6-22 (1) ity of hr tablet 00:00: TABLET(S) [place] 00 BY MOUTH Medical ONCE A Branch DAY. NIFEDIPINE 2020-0 Yes [id number] TAKE ONE Univers XL 60 mg 24 6-22 (1) ity of hr tablet 00:00: TABLET(S) [place] 00 BY MOUTH Medical ONCE A Branch DAY. NIFEDIPINE 2020-0 Yes [id number] TAKE ONE Univers XL 60 mg 24 6-22 (1) ity of hr tablet 00:00: TABLET(S) [place] 00 BY MOUTH Medical ONCE A Branch DAY. NIFEDIPINE 2020-0 Yes [id number] TAKE ONE Univers XL 60 mg 24 6-22 (1) ity of hr tablet 00:00: TABLET(S) [place] 00 BY MOUTH Medical ONCE A Branch DAY. NIFEDIPINE 2020-0 Yes [id number] TAKE ONE Univers XL 60 mg 24 6-22 (1) ity of hr tablet 00:00: TABLET(S) [place] 00 BY MOUTH Medical ONCE A Branch DAY. NIFEDIPINE 2020-0 Yes [id number] TAKE ONE Univers XL 60 mg 24 6-22 (1) ity of hr tablet 00:00: TABLET(S) [place] 00 BY MOUTH Medical ONCE A Branch DAY. NIFEDIPINE 2020-0 Yes [id number] TAKE ONE Univers XL 60 mg 24 6-22 (1) ity of hr tablet 00:00: TABLET(S) [place] 00 BY MOUTH Medical ONCE A Branch DAY. NIFEDIPINE 2020-0 Yes [id number] TAKE ONE Univers XL 60 mg 24 6-18 (1) ity of hr tablet 00:00: TABLET(S) [place] 00 BY MOUTH Medical ONCE A Branch DAY. NIFEDIPINE 2020-0 Yes [id number] TAKE ONE Univers XL 60 mg 24 6-18 (1) ity of hr tablet 00:00: TABLET(S) [place] 00 BY MOUTH Medical ONCE A Branch DAY. NIFEDIPINE 2020-0 202- No [id number] TAKE ONE Univers XL 60 mg 24 6-18 06-22 (1) ity of hr tablet 00:00: 00:00 TABLET(S) [place] 00 :00 BY MOUTH Medical ONCE A Branch DAY. NIFEDIPINE Yes [id number] TAKE ONE Univers XL 60 mg 24 5-19 (1) ity of hr tablet 00:00: TABLET(S) [place] 00 BY MOUTH Medical ONCE A Branch DAY. NIFEDIPINE 0 Yes [id number] TAKE ONE Univers XL 60 mg 24 5-19 (1) ity of hr tablet 00:00: TABLET(S) [place] 00 BY MOUTH Medical ONCE A Branch DAY. NIFEDIPINE Yes [id number] TAKE ONE Univers XL 60 mg 24 5-19 (1) ity of hr tablet 00:00: TABLET(S) [place] 00 BY MOUTH Medical ONCE A Branch DAY. NIFEDIPINE 2020- No [id number] TAKE ONE Univers XL 60 mg 24 5-19 06-18 (1) ity of hr tablet 00:00: 00:00 TABLET(S) [place] 00 :00 BY MOUTH Medical ONCE A Branch DAY. NIFEDIPINE Yes [id number] TAKE ONE Univers XL 60 mg 24 4-27 (1) ity of hr tablet 00:00: TABLET(S) [place] 00 BY MOUTH Medical ONCE A Branch DAY. NIFEDIPINE 2020- No [id number] TAKE ONE Univers XL 60 mg 24 4-27 05-19 (1) ity of hr tablet 00:00: 00:00 TABLET(S) [place] 00 :00 BY MOUTH Medical ONCE A Branch DAY. isosorbide 2020-0 Yes [id number] TAKE Un javed mononitrate 3-12 THREE (3) ity of 30 mg 24 hr 00:00: TABLET(S) [place] tablet 00 BY MOUTH Medical DAILY. Branch isosorbide 2020-0 Yes [id number] TAKE Un javed mononitrate 3-12 THREE (3) ity of 30 mg 24 hr 00:00: TABLET(S) [place] tablet 00 BY MOUTH Medical DAILY. Branch isosorbide 2020-0 Yes [id number] TAKE Un javed mononitrate 3-12 THREE (3) ity of 30 mg 24 hr 00:00: TABLET(S) [place] tablet 00 BY MOUTH Medical DAILY. Branch isosorbide 2021-0 Yes [id number] TAKE Un javed mononitrate 3-12 THREE (3) ity of 30 mg 24 hr 00:00: TABLET(S) [place] tablet 00 BY MOUTH Medical DAILY. Branch isosorbide 2021-0 Yes [id number] TAKE Un javed mononitrate 3-12 THREE (3) ity of 30 mg 24 hr 00:00: TABLET(S) [place] tablet 00 BY MOUTH Medical DAILY. Branch isosorbide 2021-0 Yes [id number] TAKE Un javed mononitrate 3-12 THREE (3) ity of 30 mg 24 hr 00:00: TABLET(S) [place] tablet 00 BY MOUTH Medical DAILY. Branch isosorbide 2021-0 Yes [id number] TAKE Un javed mononitrate 3-12 THREE (3) ity of 30 mg 24 hr 00:00: TABLET(S) [place] tablet 00 BY MOUTH Medical DAILY. Branch isosorbide 2021-0 Yes [id number] TAKE Un [place]aved mononitrate 3-12 THREE (3) ity of 30 mg 24 hr 00:00: TABLET(S) [place] tablet 00 BY MOUTH Medical DAILY. Branch isosorbide 2021-0 Yes [id number] TAKE Un [place] mononitrate 3-12 THREE (3) ity of 30 mg 24 hr 00:00: TABLET(S) [place] tablet 00 BY MOUTH Medical DAILY. Branch isosorbide 2021-0 Yes [id number] TAKE Un [place] mononitrate 3-12 THREE (3) ity of 30 mg 24 hr 00:00: TABLET(S) [place] tablet 00 BY MOUTH Medical DAILY. Branch isosorbide 2021-0 Yes [id number] TAKE Un javed mononitrate 3-12 THREE (3) ity of 30 mg 24 hr 00:00: TABLET(S) [place] tablet 00 BY MOUTH Medical DAILY. Branch isosorbide 2021-0 Yes [id number] TAKE Un javed mononitrate 3-12 THREE (3) ity of 30 mg 24 hr 00:00: TABLET(S) [place] tablet 00 BY MOUTH Medical DAILY. Branch isosorbide 2021-0 2021- No [id number] TAKE U nivers mononitrate 3-12 07-20 THREE (3) it y of 30 mg 24 hr 00:00: 00:00 TABLET(S) [place] tablet 00 :00 BY MOUTH Medical DAILY. Branch NIFEDIPINE Yes [id number] TAKE ONE Univers XL 60 mg 24 12-06 (1) ity of hr tablet 00:00: TABLET(S) [place] 00 BY MOUTH Medical ONCE A Branch DAY. NIFEDIPINE 0 Yes [id number] TAKE ONE Univers XL 60 mg 24 12-06 (1) ity of hr tablet 00:00: TABLET(S) [place] 00 BY MOUTH Medical ONCE A Branch DAY. NIFEDIPINE 2020- No [id number] TAKE ONE Univers XL 60 mg 24 12-06 04-27 (1) ity of hr tablet 00:00: 00:00 TABLET(S) [place] 00 :00 BY MOUTH Medical ONCE A Branch DAY. isosorbide 2019-09 Yes [id number] TAKE THREE Univers mononitrate 2-17 (3) ity of 30 mg 24 hr 00:00: TABLET(S) [place] tablet 00 BY MOUTH Medical ONCE A Branch DAY. carvediloL 2019-09 Yes [id number] 25mg Take 1 U nivers 25 mg 2-17 tablet by ity of tablet 00:00: mouth [place] (two) Medical [facility] daily with meals. atorvastati 2019-09 Yes [id number] 40mg Take 1 Univers n 40 mg 2-17 tablet by ity of tablet 00:00: mouth at [place] [address] bedtime. Medical Branch NIFEdipine 2019-09 Yes [id number] 60mg Take 1 U nivers XL 60 mg 24 2-17 tablet by ity of hr tablet 00:00: mouth [place] 00 daily. Medical Branch isosorbide 2019-09 Yes [id number] TAKE THREE Univers mononitrate 2-17 (3) ity of 30 mg 24 hr 00:00: TABLET(S) [place] tablet 00 BY MOUTH Medical ONCE A Branch DAY. carvediloL 2019-09 Yes [id number] 25mg Take 1 U nivers 25 mg 2-17 tablet by ity of tablet 00:00: mouth 2 [place] 00 (two) [facility] daily with meals. atorvastati 2019-09 Yes [id number] 40mg Take 1 Univers n 40 mg 2-17 tablet by ity of tablet 00:00: mouth at [place] 00 bedtime. Medical Branch NIFEdipine 2019- Yes [id number] 60mg Take 1 U nivers XL 60 mg 24 2-17 tablet by ity of hr tablet 00:00: mouth 00 daily. Medical Branch isosorbide 2019- Yes [id number] TAKE THREE Univers mononitrate 2-17 (3) ity of 30 mg 24 hr 00:00: TABLET(S) [place] tablet 00 BY MOUTH Medical ONCE A Branch DAY. carvediloL 2019-09 Yes [id number] 25mg Take 1 U nivers 25 mg 2-17 tablet by ity of tablet 00:00: mouth 2 [place] (two) Medical times Branch daily with meals. atorvastati 2019-09 Yes [id number] 40mg Take 1 Univers n 40 mg 2-17 tablet by ity of tablet 00:00: mouth at [place] [address] bedtime. Medical Branch NIFEdipine 2019-09 Yes [id number] 60mg Take 1 U nivers XL 60 mg 24 2-17 tablet by ity of hr tablet 00:00: mouth [place] daily. Medical Branch isosorbide 2019-09 Yes [id number] TAKE THREE Univers mononitrate 2-17 (3) ity of 30 mg 24 hr 00:00: TABLET(S) [place] tablet 00 BY MOUTH Medical ONCE A Branch DAY. carvediloL 2019-09 Yes [id number] 25mg Take 1 U nivers 25 mg 2-17 tablet by ity of tablet 00:00: mouth 2 [place] (two) Medical times Branch daily with meals. atorvastati 2019-09 Yes [id number] 40mg Take 1 Univers n 40 mg 2-17 tablet by ity of tablet 00:00: mouth at [place] [address] bedtime. Medical Branch carvediloL 2019-09 Yes [id number] 25mg Take 1 U nivers 25 mg 2-17 tablet by ity of tablet 00:00: mouth 2 [place] (two) Medical times [place] daily with meals. atorvastati 2019-09 Yes [id number] 40mg Take 1 Univers n 40 mg 2-17 tablet by ity of tablet 00:00: mouth at [place] [address] bedtime. Medical Branch carvediloL 2019-09 Yes [id number] 25mg Take 1 U nivers 25 mg 2-17 tablet by ity of tablet 00:00: mouth 2 [place] (two) Medical times Branch daily with meals. atorvastati 2019-09 Yes [id number] 40mg Take 1 Univers n 40 mg 2-17 tablet by ity of tablet 00:00: mouth at [place] bedtime. Medical Branch carvediloL 2019-09 Yes [id number] 25mg Take 1 U nivers 25 mg 2-17 tablet by ity of tablet 00:00: mouth 2 [place] (two) Medical times Branch daily with meals. atorvastati 2019-09 Yes [id number] 40mg Take 1 Univers n 40 mg 2-17 tablet by ity of tablet 00:00: mouth at [place] bedtime. Medical Branch carvediloL 2019-09 Yes [id number] 25mg Take 1 U nivers 25 mg 2-17 tablet by ity of tablet 00:00: mouth 2 [place] (two) Medical times Branch daily with meals. atorvastati 2019-09 Yes [id number] 40mg Take 1 Univers n 40 mg 2-17 tablet by ity of tablet 00:00: mouth at [place] bedtime. Medical Branch carvediloL 2019-09 Yes [id number] 25mg Take 1 U nivers 25 mg 2-17 tablet by ity of tablet 00:00: mouth 2 [place] (two) Medical times Branch daily with meals. atorvastati 2019-09 Yes [id number] 40mg Take 1 Univers n 40 mg 2-17 tablet by ity of tablet 00:00: mouth at [place] [address] bedtime. Medical Branch carvediloL 2019-09 Yes [id number] 25mg Take 1 U nivers 25 mg 2-17 tablet by ity of tablet 00:00: mouth [place] (two) Medical times Branch daily with meals. atorvastati 2019-09 Yes [id number] 40mg Take 1 Univers n 40 mg 2-17 tablet by ity of tablet 00:00: mouth at [place] [address] bedtime. Medical Branch carvediloL 2019-09 Yes [id number] 25mg Take 1 U nivers 25 mg 2-17 tablet by ity of tablet 00:00: mouth 2 [place] (two) Medical times Branch daily with meals. atorvastati 2019-09 Yes [id number] 40mg Take 1 Univers n 40 mg 2-17 tablet by ity of tablet 00:00: mouth at [place] [address] bedtime. Medical Branch carvediloL 2019-09 Yes [id number] 25mg Take 1 U nivers 25 mg 2-17 tablet by ity of tablet 00:00: mouth 2 (two) Medical times Branch daily with meals. atorvastati 2019- Yes [id number] 40mg Take 1 Univers n 40 mg 2-17 tablet by ity of tablet 00:00: mouth at [place] bedtime. Medical Branch carvediloL 2019-09 Yes [id number] 25mg Take 1 U nivers 25 mg 2-17 tablet by ity of tablet 00:00: mouth 2 (two) Medical times Branch daily with meals. atorvastati 2019-09 Yes [id number] 40mg Take 1 Univers n 40 mg 2-17 tablet by ity of tablet 00:00: mouth at [place] bedtime. Medical Branch carvediloL 2019-09 Yes [id number] 25mg Take 1 U nivers 25 mg 2-17 tablet by ity of tablet 00:00: mouth 2 (two) Medical times Branch daily with meals. atorvastati 2019-09 Yes [id number] 40mg Take 1 Univers n 40 mg 2-17 tablet by ity of tablet 00:00: mouth at [place] bedtime. Medical Branch carvediloL 2019-09 Yes [id number] 25mg Take 1 U nivers 25 mg 2-17 tablet by ity of tablet 00:00: mouth [place] (two) Medical times Branch daily with meals. atorvastati 2019-09 Yes [id number] 40mg Take 1 Univers n 40 mg 2-17 tablet by ity of tablet 00:00: mouth at [place] bedtime. Medical Branch carvediloL 2019-09 Yes [id number] 25mg Take 1 U nivers 25 mg 2-17 tablet by ity of tablet 00:00: mouth 2 (two) Medical times Branch daily with meals. atorvastati 2019-09 Yes [id number] 40mg Take 1 Univers n 40 mg 2-17 tablet by ity of tablet 00:00: mouth at [place] bedtime. Medical Branch carvediloL 2019-09 Yes [id number] 25mg Take 1 U nivers 25 mg 2-17 tablet by ity of tablet 00:00: mouth 2 [place] (two) Medical times Branch daily with meals. atorvastati 2019-09 Yes [id number] 40mg Take 1 Univers n 40 mg 2-17 tablet by ity of tablet 00:00: mouth at [place] [address] bedtime. Medical Branch atorvastati 2019- Yes [id number] 40mg Take 1 Univers n 40 mg 2-17 tablet by ity of tablet 00:00: mouth at [place] [address] bedtime. Medical Branch atorvastati 2019-09 Yes [id number] 40mg Take 1 Univers n 40 mg 2-17 tablet by ity of tablet 00:00: mouth at [place] [address] bedtime. Medical Branch atorvastati 2019- Yes [id number] 40mg Take 1 Univers n 40 mg 2-17 tablet by ity of tablet 00:00: mouth at [place] [address] bedtime. Medical Branch atorvastati 2019- Yes [id number] 40mg Take 1 Univers n 40 mg 2-17 tablet by ity of tablet 00:00: mouth at [place] [address] bedtime. Medical Branch atorvastati 2019- Yes [id number] 40mg Take 1 Univers n 40 mg 2-17 tablet by ity of tablet 00:00: mouth at [place] [address] bedtime. Medical Branch atorvastati 2019-09 Yes [id number] 40mg Take 1 Univers n 40 mg 2-17 tablet by ity of tablet 00:00: mouth at [place] [address] bedtime. Medical Branch atorvastati 2019-09 Yes [id number] 40mg Take 1 Univers n 40 mg 2-17 tablet by ity of tablet 00:00: mouth at [place] [address] bedtime. Medical Branch atorvastati 2019-09 Yes [id number] 40mg Take 1 Univers n 40 mg 2-17 tablet by ity of tablet 00:00: mouth at [place] [address] bedtime. Medical Branch atorvastati 2019-09 Yes [id number] 40mg Take 1 Univers n 40 mg 2-17 tablet by ity of tablet 00:00: mouth at [place] [address] bedtime. Medical Branch carvediloL 2019-2020- No [id number] 25mg Take 1 Univers 25 mg 2-17 07-22 tablet by ity of tablet 00:00: 00:00 mouth 2 [place] 00 :00 (two) Medical times Branch daily with meals. isosorbide 2019-09- No [id number] TAKE THREE Univers mononitrate 2-17 03-12 (3) ity of 30 mg 24 hr 00:00: 00:00 TABLET(S) [place] tablet 00 :00 BY MOUTH Medical ONCE A Branch DAY. NIFEdipine 2019-09- No [id number] 60mg Take 1 Univers XL 60 mg 24 2-17 -09 tablet by it y of hr tablet 00:00: 00:00 mouth [place] 00 :00 daily. Medical Branch NITROGLYCER 2019-09 Yes [id number] DISSOLVE Univers IN 0.4 mg 2-15 ONE (1) ity of sublingual 00:00: TABLET(S) [place] tablet 00 BY MOUTH Medical UNDER THE Branch TONGUE ONCE EVERY 5 MINUTES NEEDED FOR CHEST PAIN. NITROGLYCER 2019-09 Yes [id number] DISSOLVE Univers IN 0.4 mg 2-15 ONE (1) ity of sublingual 00:00: TABLET(S) [place] tablet 00 BY MOUTH Medical UNDER THE Branch TONGUE ONCE EVERY 5 MINUTES NEEDED FOR CHEST PAIN. NITROGLYCER 2019-09 Yes [id number] DISSOLVE Univers IN 0.4 mg 2-15 ONE (1) ity of sublingual 00:00: TABLET(S) [place] tablet 00 BY MOUTH Medical UNDER THE Branch TONGUE ONCE EVERY 5 MINUTES NEEDED FOR CHEST PAIN. NITROGLYCER 2019-09 Yes [id number] DISSOLVE Univers IN 0.4 mg 2-15 ONE (1) ity of sublingual 00:00: TABLET(S) [place] tablet 00 BY MOUTH Medical UNDER THE Branch TONGUE ONCE EVERY 5 MINUTES NEEDED FOR CHEST PAIN. NITROGLYCER 2019-09 Yes [id number] DISSOLVE Univers IN 0.4 mg 2-15 ONE (1) ity of sublingual 00:00: TABLET(S) [place] tablet 00 BY MOUTH Medical UNDER THE Branch TONGUE ONCE EVERY 5 MINUTES NEEDED FOR CHEST PAIN. NITROGLYCER 2019-09 Yes [id number] DISSOLVE Univers IN 0.4 mg 2-15 ONE (1) ity of sublingual 00:00: TABLET(S) [place] tablet 00 BY MOUTH Medical UNDER THE Branch TONGUE ONCE EVERY 5 MINUTES NEEDED FOR CHEST PAIN. NITROGLYCER 2019-09 Yes [id number] DISSOLVE [facility] IN 0.4 mg 2-15 ONE (1) ity of sublingual 00:00: TABLET(S) [place] tablet 00 BY MOUTH Medical UNDER THE Branch TONGUE ONCE EVERY 5 MINUTES NEEDED FOR CHEST PAIN. NITROGLYCER 2019-09 Yes [id number] DISSOLVE [facility] IN 0.4 mg 2-15 ONE (1) ity of sublingual 00:00: TABLET(S) [place] tablet 00 BY MOUTH Medical UNDER THE Branch TONGUE ONCE EVERY 5 MINUTES NEEDED FOR CHEST PAIN. NITROGLYCER 2019- Yes [id number] DISSOLVE [facility] IN 0.4 mg 2-15 ONE (1) ity of sublingual 00:00: TABLET(S) [place] tablet 00 BY MOUTH Medical UNDER THE Branch TONGUE ONCE EVERY 5 MINUTES NEEDED FOR CHEST PAIN. NITROGLYCER 2019- Yes [id number] DISSOLVE [facility] IN 0.4 mg 2-15 ONE (1) ity of sublingual 00:00: TABLET(S) [place] tablet 00 BY MOUTH Medical UNDER THE Branch TONGUE ONCE EVERY 5 MINUTES NEEDED FOR CHEST PAIN. NITROGLYCER 2019- Yes [id number] DISSOLVE [facility] IN 0.4 mg 2-15 ONE (1) ity of sublingual 00:00: TABLET(S) [place] tablet 00 BY MOUTH Medical UNDER THE Branch TONGUE ONCE EVERY 5 MINUTES NEEDED FOR CHEST PAIN. NITROGLYCER 2019-09 Yes [id number] DISSOLVE [facility] IN 0.4 mg 2-15 ONE (1) ity of sublingual 00:00: TABLET(S) [place] tablet 00 BY MOUTH Medical UNDER THE Branch TONGUE ONCE EVERY 5 MINUTES NEEDED FOR CHEST PAIN. NITROGLYCER 2019-09 Yes [id number] DISSOLVE [facility] IN 0.4 mg 2-15 ONE (1) ity of sublingual 00:00: TABLET(S) [place] tablet 00 BY MOUTH Medical UNDER THE Branch TONGUE ONCE EVERY 5 MINUTES NEEDED FOR CHEST PAIN. NITROGLYCER 2019- Yes [id number] DISSOLVE [facility] IN 0.4 mg 2-15 ONE (1) ity of sublingual 00:00: TABLET(S) [place] tablet 00 BY MOUTH Medical UNDER THE Branch TONGUE ONCE EVERY 5 MINUTES NEEDED FOR CHEST PAIN. NITROGLYCER 2019-09 Yes [id number] DISSOLVE [facility] IN 0.4 mg 2-15 ONE (1) ity of sublingual 00:00: TABLET(S) [place] tablet 00 BY MOUTH Medical UNDER THE Branch TONGUE ONCE EVERY 5 MINUTES NEEDED FOR CHEST PAIN. NITROGLYCER 2019- Yes [id number] DISSOLVE [facility] IN 0.4 mg 2-15 ONE (1) ity of sublingual 00:00: TABLET(S) [place] tablet 00 BY MOUTH Medical UNDER THE Branch TONGUE ONCE EVERY 5 MINUTES NEEDED FOR CHEST PAIN. NITROGLYCER 2019-1 Yes [id number] DISSOLVE [facility] IN 0.4 mg 2-15 ONE (1) ity of sublingual 00:00: TABLET(S) [place] tablet 00 BY MOUTH Medical UNDER THE Branch TONGUE ONCE EVERY 5 MINUTES NEEDED FOR CHEST PAIN. NITROGLYCER 2019- Yes [id number] DISSOLVE [facility] IN 0.4 mg 2-15 ONE (1) ity of sublingual 00:00: TABLET(S) [place] tablet 00 BY MOUTH Medical UNDER THE Branch TONGUE ONCE EVERY 5 MINUTES NEEDED FOR CHEST PAIN. NITROGLYCER 2019- Yes [id number] DISSOLVE [facility] IN 0.4 mg 2-15 ONE (1) ity of sublingual 00:00: TABLET(S) [place] tablet 00 BY MOUTH Medical UNDER THE Branch TONGUE ONCE EVERY 5 MINUTES NEEDED FOR CHEST PAIN. NITROGLYCER 2019-09 Yes [id number] DISSOLVE [facility] IN 0.4 mg 2-15 ONE (1) ity of sublingual 00:00: TABLET(S) [place] tablet 00 BY MOUTH Medical UNDER THE Branch TONGUE ONCE EVERY 5 MINUTES NEEDED FOR CHEST PAIN. NITROGLYCER 2019-09 Yes [id number] DISSOLVE [facility] IN 0.4 mg 2-15 ONE (1) ity of sublingual 00:00: TABLET(S) [place] tablet 00 BY MOUTH Medical UNDER THE Branch TONGUE ONCE EVERY 5 MINUTES NEEDED FOR CHEST PAIN. NITROGLYCER 2019-09 Yes [id number] DISSOLVE [facility] IN 0.4 mg 2-15 ONE (1) ity of sublingual 00:00: TABLET(S) [place] tablet 00 BY MOUTH Medical UNDER THE Branch TONGUE ONCE EVERY 5 MINUTES NEEDED FOR CHEST PAIN. NITROGLYCER 2019- Yes [id number] DISSOLVE [facility] IN 0.4 mg 2-15 ONE (1) ity of sublingual 00:00: TABLET(S) [place] tablet 00 BY MOUTH Medical UNDER THE Branch TONGUE ONCE EVERY 5 MINUTES NEEDED FOR CHEST PAIN. NITROGLYCER 2019-09 Yes [id number] DISSOLVE [facility] IN 0.4 mg 2-15 ONE (1) ity of sublingual 00:00: TABLET(S) [place] tablet 00 BY MOUTH Medical UNDER THE Branch TONGUE ONCE EVERY 5 MINUTES NEEDED FOR CHEST PAIN. NITROGLYCER 2019- Yes [id number] DISSOLVE [facility] IN 0.4 mg 2-15 ONE (1) ity of sublingual 00:00: TABLET(S) [place] tablet 00 BY MOUTH Medical UNDER THE Branch TONGUE ONCE EVERY 5 MINUTES NEEDED FOR CHEST PAIN. NITROGLYCER 2019-09 Yes [id number] DISSOLVE [facility] IN 0.4 mg 2-15 ONE (1) ity of sublingual 00:00: TABLET(S) [place] tablet 00 BY MOUTH Medical UNDER THE Branch TONGUE ONCE EVERY 5 MINUTES NEEDED FOR CHEST PAIN. NITROGLYCER 2019-09 Yes [id number] DISSOLVE [facility] IN 0.4 mg 2-15 ONE (1) ity of sublingual 00:00: TABLET(S) [place] tablet 00 BY MOUTH Medical UNDER THE Branch TONGUE ONCE EVERY 5 MINUTES NEEDED FOR CHEST PAIN. losartan-hy 2019-09 Yes [id number] 1{tbl} Take 1 [facility] drochloroth 1-20 tablet by ity of iazide 00:00: mouth [place] 50-12.5 mg 00 daily. Medical per tablet Branch losartan-hy 2020 Yes [id number] 1{tbl} Take 1 [facility] drochloroth 1-20 tablet by ity of iazide 00:00: mouth [place] 50-12.5 mg 00 daily. Medical per tablet Branch losartan-hy 2019-09 Yes [id number] 1{tbl} Take 1 [facility] drochloroth 1-20 tablet by ity of iazide 00:00: mouth [place] 50-12.5 mg 00 daily. Medical per tablet Branch losartan-hy 2020 Yes [id number] 1{tbl} Take 1 [facility] drochloroth 1-20 tablet by ity of iazide 00:00: mouth [place] 50-12.5 mg 00 daily. Medical per tablet Branch losartan-hy 2020- Yes [id number] 1{tbl} Take 1 [facility] drochloroth 1-20 tablet by ity of iazide 00:00: mouth [place] 50-12.5 mg 00 daily. Medical per tablet Branch losartan-hy 2020 Yes [id number] 1{tbl} Take 1 [facility] drochloroth 1-20 tablet by ity of iazide 00:00: mouth [place] 50-12.5 mg 00 daily. Medical per tablet Branch losartan-hy 2020 Yes [id number] 1{tbl} Take 1 [facility] drochloroth 1-20 tablet by ity of iazide 00:00: mouth [place] 50-12.5 mg 00 daily. Medical per tablet Branch losartan-hy 2020 Yes [id number] 1{tbl} Take 1 [facility] drochloroth 1-20 tablet by ity of iazide 00:00: mouth [place] 50-12.5 mg 00 daily. Medical per tablet Branch losartan-hy 2020- Yes [id number] 1{tbl} Take 1 [facility] drochloroth 1-20 tablet by ity of iazide 00:00: mouth [place] 50-12.5 mg 00 daily. Medical per tablet Branch losartan-hy 2020- Yes [id number] 1{tbl} Take 1 [facility] drochloroth 1-20 tablet by ity of iazide 00:00: mouth [place] 50-12.5 mg 00 daily. Medical per tablet Branch losartan-hy 2020 Yes [id number] 1{tbl} Take 1 [facility] drochloroth 1-20 tablet by ity of iazide 00:00: mouth [place] 50-12.5 mg 00 daily. Medical per tablet Branch losartan-hy 2020 Yes [id number] 1{tbl} Take 1 [facility] drochloroth 1-20 tablet by ity of iazide 00:00: mouth [place] 50-12.5 mg 00 daily. Medical per tablet Branch losartan-hy 2020 Yes [id number] 1{tbl} Take 1 [facility] drochloroth 1-20 tablet by ity of iazide 00:00: mouth [place] 50-12.5 mg 00 daily. Medical per tablet Branch losartan-hy 2020 Yes [id number] 1{tbl} Take 1 [facility] drochloroth 1-20 tablet by ity of iazide 00:00: mouth [place] 50-12.5 mg 00 daily. Medical per tablet Branch losartan-hy 2020- Yes [id number] 1{tbl} Take 1 [facility] drochloroth 1-20 tablet by ity of iazide 00:00: mouth [place] 50-12.5 mg 00 daily. Medical per tablet Branch losartan-hy 2020 Yes [id number] 1{tbl} Take 1 [facility] drochloroth 1-20 tablet by ity of iazide 00:00: mouth [place] 50-12.5 mg 00 daily. Medical per tablet Branch losartan-hy 2020 Yes [id number] 1{tbl} Take 1 [facility] drochloroth 1-20 tablet by ity of iazide 00:00: mouth [place] 50-12.5 mg 00 daily. Medical per tablet Branch losartan-hy 2020 Yes [id number] 1{tbl} Take 1 [facility] drochloroth 1-20 tablet by ity of iazide 00:00: mouth [place] 50-12.5 mg 00 daily. Medical per tablet Branch losartan-hy 2020 Yes [id number] 1{tbl} Take 1 [facility] drochloroth 1-20 tablet by ity of iazide 00:00: mouth [place] 50-12.5 mg 00 daily. Medical per tablet Branch losartan-hy 2020 Yes [id number] 1{tbl} Take 1 [facility] drochloroth 1-20 tablet by ity of iazide 00:00: mouth [place] 50-12.5 mg 00 daily. Medical per tablet Branch losartan-hy 2020 Yes [id number] 1{tbl} Take 1 [facility] drochloroth 1-20 tablet by ity of iazide 00:00: mouth [place] 50-12.5 mg 00 daily. Medical per tablet Branch losartan-hy 2019-09 Yes [id number] 1{tbl} Take 1 [facility] drochloroth 1-20 tablet by ity of iazide 00:00: mouth [place] 50-12.5 mg 00 daily. Medical per tablet Branch losartan-hy 2019-09 Yes [id number] 1{tbl} Take 1 [facility] drochloroth 1-20 tablet by ity of iazide 00:00: mouth [place] 50-12.5 mg 00 daily. Medical per tablet Branch losartan-hy 2020 Yes [id number] 1{tbl} Take 1 [facility] drochloroth 1-20 tablet by ity of iazide 00:00: mouth [place] 50-12.5 mg 00 daily. Medical per tablet Branch losartan-hy 2020 Yes [id number] 1{tbl} Take 1 [facility] drochloroth 1-20 tablet by ity of iazide 00:00: mouth [place] 50-12.5 mg 00 daily. Medical per tablet Branch losartan-hy 2020 Yes [id number] 1{tbl} Take 1 [facility] drochloroth 1-20 tablet by ity of iazide 00:00: mouth [place] 50-12.5 mg 00 daily. Medical per tablet Branch losartan-hy 2020 Yes [id number] 1{tbl} Take 1 [facility] drochloroth 1-20 tablet by ity of iazide 00:00: mouth [place] 50-12.5 mg 00 daily. Medical per tablet Branch losartan-hy 2020- Yes [id number] 1{tbl} Take 1 [facility] drochloroth 1-20 tablet by ity of iazide 00:00: mouth [place] 50-12.5 mg 00 daily. Medical per tablet Branch losartan-hy 2020- Yes [id number] 1{tbl} Take 1 [facility] drochloroth 1-20 tablet by ity of iazide 00:00: mouth [place] 50-12.5 mg 00 daily. Medical per tablet Branch isosorbide 2020- Yes [id number] TAKE THREE [facility] mononitrate 1-11 (3) ity of 30 mg 24 hr 00:00: TABLET(S) [place] tablet 00 BY MOUTH Medical ONCE A Branch DAY. isosorbide 2020- Yes [id number] TAKE THREE [facility] mononitrate 1-11 (3) ity of 30 mg 24 hr 00:00: TABLET(S) [place] tablet 00 BY MOUTH Medical ONCE A Branch DAY. isosorbide 2020- Yes [id number] TAKE THREE [facility] mononitrate 1-11 (3) ity of 30 mg 24 hr 00:00: TABLET(S) [place] tablet 00 BY MOUTH Medical ONCE A Branch DAY. isosorbide 2020- Yes [id number] TAKE THREE [facility] mononitrate 1-11 (3) ity of 30 mg 24 hr 00:00: TABLET(S) [place] tablet 00 BY MOUTH Medical ONCE A Branch DAY. isosorbide 2019-09 2020- No [id number] TAKE THREE [facility] mononitrate 1-11 12-17 (3) ity of 30 mg 24 hr 00:00: 00:00 TABLET(S) [place] tablet 00 :00 BY MOUTH Medical ONCE A Branch DAY. ISOSORBIDE 2020- Yes [id number] TAKE THREE [facility] MONONITRATE 0-09 (3) ity of 30 mg 24 hr 00:00: TABLET(S) [place] tablet 00 BY MOUTH Medical ONCE A Branch DAY. ISOSORBIDE 2020- 2020- No [id number] TAKE THREE [facility] MONONITRATE 0-09 11-10 (3) ity of 30 mg 24 hr 00:00: 00:00 TABLET(S) [place] tablet 00 :00 BY MOUTH Medical ONCE A Branch DAY. ISOSORBIDE 2020-0 Yes [id number] TAKE THREE [facility] MONONITRATE 8-06 (3) ity of 30 mg 24 hr 00:00: TABLET(S) [place] tablet 00 BY MOUTH Medical ONCE A Branch DAY. ISOSORBIDE 2020-0 Yes [id number] TAKE THREE [facility] MONONITRATE 8-06 (3) ity of 30 mg 24 hr 00:00: TABLET(S) [place] tablet 00 BY MOUTH Medical ONCE A Branch DAY. ISOSORBIDE 2020-0 Yes [id number] TAKE THREE [facility] MONONITRATE 8-06 (3) ity of 30 mg 24 hr 00:00: TABLET(S) [place] tablet 00 BY MOUTH Medical ONCE A Branch DAY. ISOSORBIDE 2020-0 2020- No [id number] TAKE THREE [facility] MONONITRATE 8-06 10-09 (3) ity of 30 mg 24 hr 00:00: 00:00 TABLET(S) [place] tablet 00 :00 BY MOUTH Medical ONCE A Branch DAY. ISOSORBIDE 2020-0 Yes [id number] TAKE THREE [facility] MONONITRATE 5-22 (3) ity of 30 mg 24 hr 00:00: TABLET(S) [place] tablet 00 BY MOUTH Medical ONCE A Branch DAY. ISOSORBIDE 2020-0 2020- No [id number] TAKE THREE [facility] MONONITRATE 5-22 08-06 (3) ity of 30 mg 24 hr 00:00: 00:00 TABLET(S) [place] tablet 00 :00 BY MOUTH Medical ONCE A Branch DAY. NIFEdipine 2018- Yes [id number] 60mg Take 1 U nivers XL 60 mg 24 2-13 tablet by ity of hr tablet 00:00: mouth [place] 00 daily. [facility] Branch NIFEdipine 2018- Yes [id number] 60mg Take 1 U nivers XL 60 mg 24 2-13 tablet by ity of hr tablet 00:00: mouth [place] 00 daily. [facility] NIFEdipine 2018- Yes [id number] 60mg Take 1 U nivers XL 60 mg 24 2-13 tablet by ity of hr tablet 00:00: mouth [place] 00 daily. [facility] Branch NIFEdipine 2018- Yes [id number] 60mg Take 1 U nivers XL 60 mg 24 2-13 tablet by ity of hr tablet 00:00: mouth [place] 00 daily. [facility] NIFEdipine 2018- Yes [id number] 60mg Take 1 U nivers XL 60 mg 24 2-13 tablet by ity of hr tablet 00:00: mouth [place] 00 daily. [facility] NIFEdipine 2018-09 Yes [id number] 60mg Take 1 U nivers XL 60 mg 24 2-13 tablet by ity of hr tablet 00:00: mouth [place] 00 daily. Medical Branch NIFEdipine 2018-09 Yes [id number] 60mg Take 1 U nivers XL 60 mg 24 2-13 tablet by ity of hr tablet 00:00: mouth [place] 00 daily. Medical Branch NIFEdipine 2018-09 Yes [id number] 60mg Take 1 U nivers XL 60 mg 24 2-13 tablet by ity of hr tablet 00:00: mouth [place] 00 daily. Medical Branch NIFEdipine 2018-09 Yes [id number] 60mg Take 1 U nivers XL 60 mg 24 2-13 tablet by ity of hr tablet 00:00: mouth [place] 00 daily. Medical Branch NIFEdipine 2018-09 Yes [id number] 60mg Take 1 U nivers XL 60 mg 24 2-13 tablet by ity of hr tablet 00:00: mouth [place] 00 daily. Medical Branch NIFEdipine 2018-09 2020- No [id number] 60mg Take 1 [facility] XL 60 mg 24 2-13 12-17 tablet by it y of hr tablet 00:00: 00:00 mouth [place] 00 :00 daily. Medical Branch carvedilol 2018-09 Yes [id number] 25mg Take 1 U nivers 25 mg 1-27 tablet by ity of tablet 00:00: mouth 2 [place] 00 (two) Medical times Branch daily with meals. nitroglycer 2018-[id number] 1 [facility] in 0.4 mg 1-27 tablet ity of sublingual 00:00: under the [place] tablet 00 tongue Medical every 5 Branch (five) minutes as needed for Chest pain. atorvastati 2018-09 Yes [id number] 40mg Take 1 [facility] n 40 mg 1-27 tablet by ity of tablet 00:00: mouth at [place] 00 bedtime. Medical Branch aspirin 81 2018-09 Yes [id number] 81mg Take 1 U nivers mg chewable 1-27 tablet by ity of tablet 00:00: mouth [place] 00 daily. Medical Branch FLUoxetine 2018-09 Yes [id number] 20mg Take 1 [facility] 20 mg 1-27 capsule by ity of capsule 00:00: mouth [place] 00 daily. Medical Branch losartan-hy 2018-09 Yes [id number] 1{tbl} Take 1 [facility] drochloroth 1-27 tablet by ity of iazide 00:00: mouth [place] 50-12.5 mg 00 daily. Medical per tablet Branch Miscellaneo 2018-09 Yes [id number] I10 - U nivers Medical 10-26 Dispense ity o f Supply Kit 00:00: blood [place] 00 pressure Medical cuff (any Branch brand), take BP at home BID carvedilol 2018-09 Yes [id number] 25mg Take 1 U nivers 25 mg 1-27 tablet by ity of tablet 00:00: mouth 2 [place] (two) Medical times Branch daily with meals. nitroglycer 2018-[id number] 1 [facility] in 0.4 mg 1-27 tablet ity of sublingual 00:00: under the [place] tablet 00 tongue Medical every 5 Branch (five) minutes as needed for Chest pain. atorvastati 2018-09 Yes [id number] 40mg Take 1 [facility] n 40 mg 1-27 tablet by ity of tablet 00:00: mouth at [place] 00 bedtime. Medical Branch aspirin 81 2018-09 Yes [id number] 81mg Take 1 U nivers mg chewable 1-27 tablet by ity of tablet 00:00: mouth [place] 00 daily. Medical Branch FLUoxetine 2018-09 Yes [id number] 20mg Take 1 [facility] 20 mg 1-27 capsule by ity of capsule 00:00: mouth [place] 00 daily. Medical Branch losartan-hy 2018-09 Yes [id number] 1{tbl} Take 1 [facility] drochloroth 1-27 tablet by ity of iazide 00:00: mouth [place] 50-12.5 mg 00 daily. Medical per tablet Branch Miscellaneo 2018-09 Yes [id number] I10 - U nivers Medical 10-26 Dispense ity o f Supply Kit 00:00: blood [place] 00 pressure Medical cuff (any Branch brand), take BP at home BID carvedilol 2018-09 Yes [id number] 25mg Take 1 U nivers 25 mg 1-27 tablet by ity of tablet 00:00: mouth 2 [place] (two) Medical times Branch daily with meals. nitroglycer 2018-[id number] 1 [facility] in 0.4 mg 1-27 tablet ity of sublingual 00:00: under the [place] tablet 00 tongue Medical every 5 Branch (five) minutes as needed for Chest pain. atorvastati 2018-09 Yes [id number] 40mg Take 1 [facility] n 40 mg 1-27 tablet by ity of tablet 00:00: mouth at [place] 00 bedtime. Medical Branch aspirin 81 2018-09 Yes [id number] 81mg Take 1 U nivers mg chewable 1-27 tablet by ity of tablet 00:00: mouth [place] 00 daily. Medical Branch FLUoxetine 2018-09 Yes [id number] 20mg Take 1 [facility] 20 mg 1-27 capsule by ity of capsule 00:00: mouth [place] 00 daily. Medical Branch losartan-hy 2018-09 Yes [id number] 1{tbl} Take 1 [facility] drochloroth 1-27 tablet by ity of iazide 00:00: mouth [place] 50-12.5 mg 00 daily. Medical per tablet Branch Miscellaneo 2018-09 Yes [id number] I10 - U nivers Medical 1- Dispense ity o f Supply Kit 00:00: blood [place] 00 pressure Medical cuff (any Branch brand), take BP at home BID carvedilol 2018-09 Yes [id number] 25mg Take 1 U nivers 25 mg 1-27 tablet by ity of tablet 00:00: mouth 2 [place] 00 (two) Medical times Branch daily with meals. nitroglycer 2018-[id number] 1 [facility] in 0.4 mg 1-27 tablet ity of sublingual 00:00: under the [place] tablet 00 tongue Medical every 5 Branch (five) minutes as needed for Chest pain. atorvastati 2018-09 Yes [id number] 40mg Take 1 [facility] n 40 mg 1-27 tablet by ity of tablet 00:00: mouth at [place] 00 bedtime. Medical Branch aspirin 81 2018-09 Yes [id number] 81mg Take 1 U nivers mg chewable 1-27 tablet by ity of tablet 00:00: mouth [place] 00 daily. Medical Branch FLUoxetine 2018-09 Yes [id number] 20mg Take 1 [facility] 20 mg 1-27 capsule by ity of capsule 00:00: mouth [place] 00 daily. Medical Branch losartan-hy 2018-09 Yes [id number] 1{tbl} Take 1 [facility] drochloroth 1-27 tablet by ity of iazide 00:00: mouth [place] 50-12.5 mg 00 daily. Medical per tablet Branch Miscellaneo 2018-09 Yes [id number] I10 - U nivers Medical 10-26 Dispense ity o f Supply Kit 00:00: blood [place] 00 pressure Medical cuff (any Branch brand), take BP at home BID carvedilol 2018-09 Yes [id number] 25mg Take 1 U nivers 25 mg 1-27 tablet by ity of tablet 00:00: mouth 2 [place] 00 (two) Medical times Branch daily with meals. nitroglycer 2018-[id number] 1 [facility] in 0.4 mg 1-27 tablet ity of sublingual 00:00: under the [place] tablet 00 tongue Medical every 5 Branch (five) minutes as needed for Chest pain. atorvastati 2018-09 Yes [id number] 40mg Take 1 [facility] n 40 mg 1-27 tablet by ity of tablet 00:00: mouth at [place] 00 bedtime. Medical Branch aspirin 81 2018-09 Yes [id number] 81mg Take 1 U nivers mg chewable 1-27 tablet by ity of tablet 00:00: mouth [place] 00 daily. Medical Branch FLUoxetine 2018-09 Yes [id number] 20mg Take 1 [facility] 20 mg 1-27 capsule by ity of capsule 00:00: mouth [place] 00 daily. Medical Branch losartan-hy 2018-09 Yes [id number] 1{tbl} Take 1 [facility] drochloroth 1-27 tablet by ity of iazide 00:00: mouth [place] 50-12.5 mg 00 daily. Medical per tablet Branch Miscellaneo 2018-09 Yes [id number] I10 - U [facility]ivers [facility] 10-26 Dispense ity o f Supply Kit 00:00: blood [place] 00 pressure Medical cuff (any Branch brand), take BP at home BID carvedilol 2018-09 Yes [id number] 25mg Take 1 U nivers 25 mg 1-27 tablet by ity of tablet 00:00: mouth 2 [place] 00 (two) Medical times Branch daily with meals. nitroglycer 2018-[id number] 1 [facility] in 0.4 mg 1-27 tablet ity of sublingual 00:00: under the [place] tablet 00 tongue Medical every 5 Branch (five) minutes as needed for Chest pain. atorvastati 2018-09 Yes [id number] 40mg Take 1 [facility] n 40 mg 1-27 tablet by ity of tablet 00:00: mouth at [place] 00 bedtime. Medical Branch aspirin 81 2018-09 Yes [id number] 81mg Take 1 U nivers mg chewable 1-27 tablet by ity of tablet 00:00: mouth [place] 00 daily. Medical Branch FLUoxetine 2018-09 Yes [id number] 20mg Take 1 [facility] 20 mg 1-27 capsule by ity of capsule 00:00: mouth [place] 00 daily. Medical Branch losartan-hy 2018-09 Yes [id number] 1{tbl} Take 1 [facility] drochloroth 1-27 tablet by ity of iazide 00:00: mouth [place] 50-12.5 mg 00 daily. Medical per tablet Branch Miscellaneo 2018-09 Yes [id number] I10 - U nivers [facility] Medical 1-27 Dispense ity o f Supply Kit 00:00: blood [place] 00 pressure Medical cuff (any Branch brand), take BP at home BID carvedilol 2018-09 Yes [id number] 25mg Take 1 U nivers 25 mg 1-27 tablet by ity of tablet 00:00: mouth 2 [place] 00 (two) Medical times Branch daily with meals. nitroglycer 2018-[id number] 1 [facility] in 0.4 mg 1-27 tablet ity of sublingual 00:00: under the [place] tablet 00 tongue Medical every 5 Branch (five) minutes as needed for Chest pain. atorvastati 2018-09 Yes [id number] 40mg Take 1 [facility] n 40 mg 1-27 tablet by ity of tablet 00:00: mouth at [place] 00 bedtime. Medical Branch aspirin 81 2018-09 Yes [id number] 81mg Take 1 U nivers mg chewable 1-27 tablet by ity of tablet 00:00: mouth [place] 00 daily. Medical Branch FLUoxetine 2018-09 Yes [id number] 20mg Take 1 [facility] 20 mg 1-27 capsule by ity of capsule 00:00: mouth [place] 00 daily. Medical Branch Miscellaneo 2018-09 Yes [id number] I10 - U nivers [facility] Medical 1-27 Dispense ity o f Supply Kit 00:00: blood [place] 00 pressure Medical cuff (any Branch brand), take BP at home BID carvedilol 2018-09 Yes [id number] 25mg Take 1 U nivers 25 mg 1-27 tablet by ity of tablet 00:00: mouth 2 [place] 00 (two) Medical times Branch daily with meals. atorvastati 2018-09 Yes [id number] 40mg Take 1 [facility] n 40 mg 1-27 tablet by ity of tablet 00:00: mouth at [place] 00 bedtime. Medical Branch aspirin 81 2018-09 Yes [id number] 81mg Take 1 U nivers mg chewable 1-27 tablet by ity of tablet 00:00: mouth [place] 00 daily. Medical Branch FLUoxetine 2018-09 Yes [id number] 20mg Take 1 [facility] 20 mg 1-27 capsule by ity of capsule 00:00: mouth [place] 00 daily. Medical Branch Miscellaneo 2018-09 Yes [id number] I10 - U [facility] 10-26 Dispense ity o f Supply Kit 00:00: blood [place] 00 pressure Medical cuff (any Branch brand), take BP at home BID carvedilol 2018-09 Yes [id number] 25mg Take 1 U nivers 25 mg 1-27 tablet by ity of tablet 00:00: mouth 2 [place] 00 (two) Medical times Branch daily with meals. atorvastati 2018-09 Yes [id number] 40mg Take 1 [facility] n 40 mg 1-27 tablet by ity of tablet 00:00: mouth at [place] 00 bedtime. Medical Branch aspirin 81 2018-09 Yes [id number] 81mg Take 1 U nivers mg chewable 1-27 tablet by ity of tablet 00:00: mouth [place] 00 daily. Medical Branch FLUoxetine 2018-09 Yes [id number] 20mg Take 1 [facility] 20 mg 1-27 capsule by ity of capsule 00:00: mouth [place] 00 daily. Medical Branch Miscellaneo 2018-09 Yes [id number] I10 - U [facility] 10-26 Dispense ity o f Supply Kit 00:00: blood [place] 00 pressure Medical cuff (any Branch brand), take BP at home BID aspirin 81 2018-09 Yes [id number] 81mg Take 1 U nivers mg chewable 1-27 tablet by ity of tablet 00:00: mouth [place] 00 daily. Medical Branch Miscellaneo 2018-09 Yes [id number] I10 - U [facility] 10-26 Dispense ity o f Supply Kit 00:00: blood [place] 00 pressure Medical cuff (any Branch brand), take BP at home BID aspirin 81 2018-09 Yes [id number] 81mg Take 1 U nivers mg chewable 1-27 tablet by ity of tablet 00:00: mouth [place] 00 daily. [facility] Yes [id number] I10 - [facility] 10-26 Dispense ity o f Supply Kit 00:00: blood [place] 00 pressure Medical cuff (any Branch brand), take BP at home BID aspirin 81 2018-09 Yes [id number] 81mg Take 1 U nivers mg chewable 1-27 tablet by ity of tablet 00:00: mouth [place] 00 daily. [facility]09 Yes [id number] I10 - [facility] 10-26 Dispense ity o f Supply Kit 00:00: blood [place] 00 pressure Medical cuff (any Branch brand), take BP at home BID aspirin 81 2018-09 Yes [id number] 81mg Take 1 U nivers mg chewable 1-27 tablet by ity of tablet 00:00: mouth [place] 00 daily. [facility]09 Yes [id number] I10 - U [facility] 10-26 Dispense ity o f Supply Kit 00:00: blood [place] 00 pressure Medical cuff (any Branch brand), take BP at home BID aspirin 81 2018-09 Yes [id number] 81mg Take 1 U nivers mg chewable 1-27 tablet by ity of tablet 00:00: mouth [place] 00 daily. Medical Branch [facility] 2018-09 Yes [id number] I10 - U [facility] 10-26 Dispense ity o f Supply Kit 00:00: blood [place] 00 pressure Medical cuff (any Branch brand), take BP at home BID aspirin 81 2018-09 Yes [id number] 81mg Take 1 U nivers mg chewable 1-27 tablet by ity of tablet 00:00: mouth [place] 00 daily. Medical Branch [facility] [place] 2018-09 Yes [id number] I10 - U nivers [facility] 10-26 Dispense ity o f Supply Kit 00:00: blood [place] 00 pressure Medical cuff (any Branch brand), take BP at home BID aspirin 81 2018-09 Yes [id number] 81mg Take 1 U nivers mg chewable 1-27 tablet by ity of tablet 00:00: mouth [place] 00 daily. [facility] Yes [id number] I10 - U [facility] 10-26 Dispense ity o f Supply Kit 00:00: blood [place] 00 pressure Medical cuff (any Branch brand), take BP at home BID aspirin 81 2018-09 Yes [id number] 81mg Take 1 U nivers mg chewable 1-27 tablet by ity of tablet 00:00: mouth [place] 00 daily. Medical Branch [facility] [place] 2018-09 Yes [id number] I10 - U [facility] 10-26 Dispense ity o f Supply Kit 00:00: blood [place] 00 pressure Medical cuff (any Branch brand), take BP at home BID aspirin 81 2018-09 Yes [id number] 81mg Take 1 U nivers mg chewable 1-27 tablet by ity of tablet 00:00: mouth [place] 00 daily. Medical Branch [facility] [place] 2018-09 Yes [id number] I10 - U [facility] 10-26 Dispense ity o f Supply Kit 00:00: blood [place] 00 pressure Medical cuff (any Branch brand), take BP at home BID aspirin 81 2018-09 Yes [id number] 81mg Take 1 U nivers mg chewable 1-27 tablet by ity of tablet 00:00: mouth [place] 00 daily. Medical Branch [facility] [place] 2018-09 Yes [id number] I10 - U [facility] 10-26 Dispense ity o f Supply Kit 00:00: blood [place] 00 pressure Medical cuff (any Branch brand), take BP at home BID aspirin 81 2018-09 Yes [id number] 81mg Take 1 U nivers mg chewable 1-27 tablet by ity of tablet 00:00: mouth [place] 00 daily. Medical Branch [facility] [place] 2018-09 Yes [id number] I10 - U [facility] 10-26 Dispense ity o f Supply Kit 00:00: blood [place] 00 pressure Medical cuff (any Branch brand), take BP at home BID aspirin 81 2018-09 Yes [id number] 81mg Take 1 U nivers mg chewable 1-27 tablet by ity of tablet 00:00: mouth [place] 00 daily. Medical Branch [facility] [place] 2018-09 Yes [id number] I10 - U [facility] 10-26 Dispense ity o f Supply Kit 00:00: blood [place] 00 pressure Medical cuff (any Branch brand), take BP at home BID aspirin 81 2018-09 Yes [id number] 81mg Take 1 U nivers mg chewable 1-27 tablet by ity of tablet 00:00: mouth [place] 00 daily. Medical [facility] 2018-09 Yes [id number] I10 - U [facility] 10-26 Dispense ity o f Supply Kit 00:00: blood [place] 00 pressure Medical cuff (any Branch brand), take BP at home BID aspirin 81 2018-09 Yes [id number] 81mg Take 1 U nivers mg chewable 1-27 tablet by ity of tablet 00:00: mouth [place] 00 daily. Medical [facility] 2018-09 Yes [id number] I10 - U [facility] 10-26 Dispense ity o f Supply Kit 00:00: blood [place] 00 pressure Medical cuff (any Branch brand), take BP at home BID aspirin 81 2018-09 Yes [id number] 81mg Take 1 U nivers mg chewable 1-27 tablet by ity of tablet 00:00: mouth [place] 00 daily. Medical [facility] 2018-09 Yes [id number] I10 - U [facility] 10-26 Dispense ity o f Supply Kit 00:00: blood [place] 00 pressure Medical cuff (any Branch brand), take BP at home BID aspirin 81 2018-09 Yes [id number] 81mg Take 1 U nivers mg chewable 1-27 tablet by ity of tablet 00:00: mouth [place] 00 daily. Medical [facility] 2018-09 Yes [id number] I10 - U [facility] 10-26 Dispense ity o f Supply Kit 00:00: blood [place] 00 pressure Medical cuff (any Branch brand), take BP at home BID aspirin 81 2018-09 Yes [id number] 81mg Take 1 U nivers mg chewable 1-27 tablet by ity of tablet 00:00: mouth [place] 00 daily. Medical [facility] 2018-09 Yes [id number] I10 - U n[facility] 10-26 Dispense ity o f Supply Kit 00:00: blood [place] 00 pressure Medical cuff (any Branch brand), take BP at home BID aspirin 81 2018-09 Yes [id number] 81mg Take 1 U nivers mg chewable 1-27 tablet by ity of tablet 00:00: mouth [place] 00 daily. [facility]09 Yes [id number] I10 - U n[facility] 10-26 Dispense ity o f Supply Kit 00:00: blood [place] 00 pressure Medical cuff (any Branch brand), take BP at home BID aspirin 81 2018-09 Yes [id number] 81mg Take 1 U nivers mg chewable 1-27 tablet by ity of tablet 00:00: mouth [place] 00 daily. Medical [facility] 2018-09 Yes [id number] I10 - U n[facility] 10-26 Dispense ity o f Supply Kit 00:00: blood [place] 00 pressure Medical cuff (any Branch brand), take BP at home BID aspirin 81 2018-09 Yes [id number] 81mg Take 1 U nivers mg chewable 1-27 tablet by ity of tablet 00:00: mouth [place] 00 daily. Medical [facility] 2018-09 Yes [id number] I10 - U n[facility] 10-26 Dispense ity o f Supply Kit 00:00: blood [place] 00 pressure Medical cuff (any Branch brand), take BP at home BID aspirin 81 2018-09 Yes [id number] 81mg Take 1 U nivers mg chewable 1-27 tablet by ity of tablet 00:00: mouth [place] 00 daily. Medical [facility] 2018-09 Yes [id number] I10 - U n[facility] 10-26 Dispense ity o f Supply Kit 00:00: blood [place] 00 pressure Medical cuff (any Branch brand), take BP at home BID aspirin 81 2018-09 Yes [id number] 81mg Take 1 U nivers mg chewable 1-27 tablet by ity of tablet 00:00: mouth [place] 00 daily. Medical [facility] 2018-09 Yes [id number] I10 - U [facility] 10-26 Dispense ity o f Supply Kit 00:00: blood [place] 00 pressure Medical cuff (any Branch brand), take BP at home BID aspirin 81 2018-09 Yes [id number] 81mg Take 1 U nivers mg chewable 1-27 tablet by ity of tablet 00:00: mouth [place] 00 daily. Medical [facility] 2018-09 Yes [id number] I10 - U n[facility] 10-26 Dispense ity o f Supply Kit 00:00: blood [place] 00 pressure Medical cuff (any Branch brand), take BP at home BID aspirin 81 2018-09 Yes [id number] 81mg Take 1 U nivers mg chewable 1-27 tablet by ity of tablet 00:00: mouth [place] 00 daily. Medical [facility] 2018-09 Yes [id number] I10 - U [facility] 10-26 Dispense ity o f Supply Kit 00:00: blood [place] 00 pressure Medical cuff (any Branch brand), take BP at home BID aspirin 81 2018-09 Yes [id number] 81mg Take 1 U nivers mg chewable 1-27 tablet by ity of tablet 00:00: mouth [place] 00 daily. Medical Branch [facility] 2018-09 Yes [id number] I10 - U nivers Medical 10-26 Dispense ity o f Supply Kit 00:00: blood [place] 00 pressure Medical cuff (any Branch brand), take BP at home BID aspirin 81 2018-09 Yes [id number] 81mg Take 1 U nivers mg chewable 1-27 tablet by ity of tablet 00:00: mouth [place] 00 daily. Medical Branch [facility] 2018-09 Yes [id number] I10 - U nivers [facility] 10-26 Dispense ity o f Supply Kit 00:00: blood [place] 00 pressure Medical cuff (any Branch brand), take BP at home BID carvedilol 2018-09 Yes [id number] 25mg Take 1 U nivers 25 mg 1-27 tablet by ity of tablet 00:00: mouth 2 [place] 00 (two) Medical times Branch daily with meals. isosorbide 2018-09 Yes [id number] 90mg Take 3 U nivers mononitrate 1-27 tablets by it y of 30 mg 24 hr 00:00: mouth [place] tablet 00 daily. Medical Branch nitroglycer 2018-[id number] 1 Univers in 0.4 mg 1-27 tablet ity of sublingual 00:00: under the [place] tablet 00 tongue Medical every 5 Branch (five) minutes as needed for Chest pain. atorvastati 2018-09 Yes [id number] 40mg Take 1 Univers n 40 mg 1-27 tablet by ity of tablet 00:00: mouth at [place] 00 bedtime. Medical Branch aspirin 81 2018-09 Yes [id number] 81mg Take 1 U nivers mg chewable 1-27 tablet by ity of tablet 00:00: mouth [place] 00 daily. Medical Branch FLUoxetine 2018-09 Yes [id number] 20mg Take 1 Univers 20 mg 1-27 capsule by ity of capsule 00:00: mouth [place] 00 daily. Medical Branch losartan-hy 2018-09 Yes [id number] 1{tbl} Take 1 Univers drochloroth 1-27 tablet by ity of iazide 00:00: mouth [place] 50-12.5 mg 00 daily. Medical per tablet Branch M[facility]ell[facility]o 2018-09 Yes [id number] I10 - U nivers us Medical 1-27 Dispense ity o f Supply Kit 00:00: blood [place] 00 pressure Medical cuff (any Branch brand), take BP at home BID carvedilol 2018-09 2020- No [id number] 25mg Take 1 Univers 25 mg 1-27 12-17 tablet by ity of tablet 00:00: 00:00 mouth 2 [place] 00 :00 (two) Medical times Branch daily with meals. atorvastati 2018-09 2020- No [id number] 40mg Take 1 Univers n 40 mg 1-27 12-17 tablet by ity of tablet 00:00: 00:00 mouth at [place] 00 :00 bedtime. Medical Branch FLUoxetine 2018-09 2020- No [id number] 20mg Take 1 Univers 20 mg 1-27 12-17 capsule by ity of capsule 00:00: 00:00 mouth [place] 00 :00 daily. Medical Branch nitroglycer 2018-09 2020- No [id number] .4mg Place 1 Univers in 0.4 mg 1-27 12-15 tablet ity of sublingual 00:00: 00:00 under the [place] tablet 00 :00 tongue Medical every 5 Branch (five) minutes as needed for Chest pain. losartan-hy 2018-09 2020- No [id number] 1{tbl} Take 1 Univers drochloroth 1-27 11-20 tablet by it y of iazide 00:00: 00:00 mouth [place] 50-12.5 mg 00 :00 daily. Medical per tablet Branch isosorbide 2018-09 2020- No [id number] 90mg Take 3 Univers mononitrate 1-27 05-22 tablets by i ty of 30 mg 24 hr 00:00: 00:00 [place] tablet 00 :00 daily. Medical Branch carvedilol Yes [id number] 25mg Take 1 U nivers 25 mg 8-22 tablet by ity of tablet 00:00: mouth 2 [place] 00 (two) Medical times Branch daily with meals. isosorbide Yes 90mg Take 3 Unive rs mononitrate 8-09 tablets by it y of 30 mg 24 hr 00:00: mouth [place] tablet 00 daily. Medical Branch isosorbide 2019-0 Yes 90mg Take 3 Unive rs mononitrate 8-09 tablets by it y of 30 mg 24 hr 00:00: mouth [place] tablet 00 daily. Medical Branch NIFEdipine 2019-0 Yes 90mg Take 1 Unive rs XL 90 mg 24 8-06 tablet by ity of hr tablet 00:00: mouth [place] 00 daily. Medical Branch NIFEdipine 2019-0 Yes 90mg Take 1 Unive rs XL 90 mg 24 8-06 tablet by ity of hr tablet 00:00: mouth [place] 00 daily. Medical Branch NIFEdipine 2019-0 Yes 90mg Take 1 Unive rs XL 90 mg 24 8-06 tablet by ity of hr tablet 00:00: mouth [place] 00 daily. Medical Branch NIFEdipine 2019-0 Yes 90mg Take 1 Unive rs XL 90 mg 24 8-06 tablet by ity of hr tablet 00:00: mouth [place] 00 daily. Medical Branch atorvastati 2019-0 Yes 40mg Take 1 Univ ers n 40 mg 6-04 tablet by ity of tablet 00:00: mouth at [place] 00 bedtime. Medical Branch atorvastati 2019-0 Yes 40mg Take 1 Univ ers n 40 mg 6-04 tablet by ity of tablet 00:00: mouth at [place] 00 bedtime. Medical Branch atorvastati 2019-0 Yes 40mg Take 1 Univ ers n 40 mg 6-04 tablet by ity of tablet 00:00: mouth at [place] 00 bedtime. Medical Branch atorvastati 2019-0 Yes 40mg Take 1 Univ ers n 40 mg 6-04 tablet by ity of tablet 00:00: mouth at [place] 00 bedtime. Medical Branch isosorbide 2019-0 Yes 90mg Take 3 Unive rs mononitrate 6-03 tablets by it y of 30 mg 24 hr 00:00: mouth [place] tablet 00 daily. Medical Branch isosorbide 2019-0 Yes 90mg Take 3 Unive rs mononitrate 6-03 tablets by it y of 30 mg 24 hr 00:00: mouth [place] tablet 00 daily. Medical Branch isosorbide 2019-0 2019- No 90mg Take 3 Univ ers mononitrate 6-03 08-09 tablets by i ty of 30 mg 24 hr 00:00: 00:00 [place] tablet 00 :00 daily. Medical Branch carvedilol 2019-0 Yes [id number] 25mg Take 1 U nivers 25 mg 5-21 tablet by ity of tablet 00:00: mouth 2 (two) Medical times Branch daily with meals. carvedilol Yes [id number] 25mg Take 1 U nivers 25 mg 5-21 tablet by ity of tablet 00:00: mouth 2 (two) Medical times Branch daily with meals. carvedilol Yes [id number] 25mg Take 1 U nivers 25 mg 5-21 tablet by ity of tablet 00:00: mouth 2 (two) Medical times Branch daily with meals. carvedilol 2019- No [id number] 25mg Take 1 Univers 25 mg 5-21 08-22 tablet by ity of tablet 00:00: 00:00 mouth 2 [place] 00 :00 (two) Medical times Branch daily with meals. NIFEdipine 2019- No 90mg Take 1 Univ ers XL 90 mg 24 5-01 08-06 tablet by it y of hr tablet 00:00: 00:00 mouth [place] 00 :00 daily. Medical Branch nitroglycer 2017-[address] 1 Uni vers in 0.4 mg 1-02 tablet ity of sublingual 00:00: under the [place] tablet 00 tongue Medical every 5 Branch (five) minutes as needed for Chest pain. nitroglycer 2017-[address] 1 Uni vers in 0.4 mg 1-02 tablet ity of sublingual 00:00: under the [place] tablet 00 tongue Medical every 5 Branch (five) minutes as needed for Chest pain. nitroglycer 2017-[address] 1 Uni vers in 0.4 mg 1-02 tablet ity of sublingual 00:00: under the [place] tablet 00 tongue Medical every 5 Branch (five) minutes as needed for Chest pain. nitroglycer 2017-[address] 1 Uni vers in 0.4 mg 1-02 tablet ity of sublingual 00:00: under the [place] tablet 00 tongue Medical every 5 Branch (five) minutes as needed for Chest pain. traMADOL Yes 50mg Take 1 Univers (ULTRAM) 50 8-12 tablet by ity of mg tablet 00:00: mouth [place] 00 every 6 Medical (six) Branch hours as needed for Pain (scale 4-6). traMADOL 2018-0 Yes 50mg Take 1 Univers (ULTRAM) 50 8-12 tablet by ity of mg tablet 00:00: mouth [place] 00 every 6 Medical (six) Branch hours as needed for Pain (scale 4-6). traMADOL 2018-0 Yes 50mg Take 1 Univers (ULTRAM) 50 8-12 tablet by ity of mg tablet 00:00: mouth [place] 00 every 6 Medical (six) Branch hours as needed for Pain (scale 4-6). traMADOL 2018-0 Yes 50mg Take 1 Univers (ULTRAM) 50 8-12 tablet by ity of mg tablet 00:00: mouth [place] 00 every 6 Medical (six) Branch hours as needed for Pain (scale 4-6). aspirin 81 2016-0 Yes 81mg Take 1 Unive rs mg chewable 7-26 tablet by ity of tablet 00:00: mouth [place] 00 daily. Medical Branch aspirin 81 2015-0 Yes 81mg Take 1 Unive rs mg chewable 7-26 tablet by ity of tablet 00:00: mouth [place] 00 daily. Medical Branch aspirin 81 2015-0 Yes 81mg Take 1 Unive rs mg chewable 7-26 tablet by ity of tablet 00:00: mouth [place] 00 daily. Medical Branch aspirin 81 2016-0 Yes 81mg Take 1 Unive rs mg chewable 7-26 tablet by ity of tablet 00:00: mouth [place] 00 daily. [facility] Branch Immunizations Ordered Filled Immunization Date Status Comments [facility] e Immunization Name Name SARS-COV-2 COVID-19 2021-03-25 Completed Unive rsity of PFIZER VACCINE 00:00:00 [facility] [place] [facility] SARS-COV-2 COVID-19 2021-03-25 Completed Unive rsity of PFIZER VACCINE 00:00:00 [facility] [place] [facility] SARS-COV-2 COVID-19 2021-03-25 Completed Unive rsity of PFIZER VACCINE 00:00:00 [facility] [place] [facility] SARS-COV-2 COVID-19 2021-03-25 Completed Unive rsity of PFIZER VACCINE 00:00:00 [facility] [place] [facility] SARS-COV-2 COVID-19 2021-03-25 Completed Unive rsity of PFIZER VACCINE 00:00:00 [facility] [place] [facility] SARS-COV-2 COVID-19 2021-03-25 Completed Unive rsity of PFIZER VACCINE 00:00:00 [facility] [place] [facility] SARS-COV-2 COVID-19 2021-03-25 Completed Unive rsity of PFIZER VACCINE 00:00:00 [facility] [place] [facility] SARS-COV-2 COVID-19 2021-03-25 Completed Unive rsity of PFIZER VACCINE 00:00:00 [facility] [place] [facility] SARS-COV-2 COVID-19 2021-03-25 Completed Unive rsity of PFIZER VACCINE 00:00:00 [facility] [place] [facility] SARS-COV-2 COVID-19 2021-03-25 Completed Unive rsity of PFIZER VACCINE 00:00:00 [facility] [place] [facility] SARS-COV-2 COVID-19 2021-03-25 Completed Unive rsity of PFIZER VACCINE 00:00:00 [facility] [place] [facility] SARS-COV-2 COVID-19 2021-03-25 Completed Unive rsity of PFIZER VACCINE 00:00:00 [facility] [place] [facility] SARS-COV-2 COVID-19 2021-03-25 Completed Unive rsity of PFIZER VACCINE 00:00:00 [facility] [place] [facility] Influenza Virus 2019-12-01 Completed Universit y of Vaccine 00:00:00 [facility] Influenza Virus 2019-12-01 Completed Universit y of Vaccine 00:00:00 [facility] Influenza Virus 2019-12-01 Completed Universit y of Vaccine 00:00:00 [facility] Influenza Virus 2019-12-01 Completed Universit y of Vaccine 00:00:00 [facility] Influenza Virus 2019-12-01 Completed Universit y of Vaccine 00:00:00 [facility] Influenza Virus 2019-12-01 Completed Universit y of Vaccine 00:00:00 [facility] Influenza Virus 2019-12-01 Completed Universit y of Vaccine 00:00:00 [facility] Influenza Virus 2019-12-01 Completed Universit y of Vaccine 00:00:00 [facility] Influenza Virus 2019-12-01 Completed Universit y of Vaccine 00:00:00 [facility] Influenza Virus 2019-12-01 Completed Universit y of Vaccine 00:00:00 [facility] Influenza Virus 2019-12-01 Completed Universit y of Vaccine 00:00:00 [facility] Influenza Virus 2019-12-01 Completed Universit y of Vaccine 00:00:00 [facility] Influenza Virus 2019-12-01 Completed Universit y of Vaccine 00:00:00 [facility] Influenza Virus 2019-12-01 Completed Universit y of Vaccine 00:00:00 [facility] Influenza Virus 2019-12-01 Completed Universit y of Vaccine 00:00:00 [facility] Influenza Virus 2019-12-01 Completed Universit y of Vaccine 00:00:00 [facility] Influenza Virus 2019-12-01 Completed Universit y of Vaccine 00:00:00 [facility] Influenza Virus 2019-12-01 Completed Universit y of Vaccine 00:00:00 [facility] Influenza Virus 2019-12-01 Completed Universit y of Vaccine 00:00:00 [facility] Influenza Virus 2019-12-01 Completed Universit y of Vaccine 00:00:00 [facility] Influenza Virus 2019-12-01 Completed Universit y of Vaccine 00:00:00 [facility] Influenza Virus 2019-12-01 Completed Universit y of Vaccine 00:00:00 [facility] Influenza Virus 2019-12-01 Completed Universit y of Vaccine 00:00:00 [facility] Influenza Virus 2019-12-01 Completed Universit y of Vaccine 00:00:00 [facility] Influenza Virus 2019-12-01 Completed Universit y of Vaccine 00:00:00 [facility] Influenza Virus 2019-12-01 Completed Universit y of Vaccine 00:00:00 [facility] Influenza Virus 2018-12-06 Completed Universit y of Vaccine Quad IM 00:00:00 [place] Med ical Multi-dose 6+ MO Branch Influenza Virus 2018-12-06 Completed Universit y of Vaccine [facility] IM 00:00:00 [place] Med ical Multi-dose 6+ MO Branch Influenza Virus 2018-12-06 Completed Universit y of Vaccine [facility] IM 00:00:00 [place] Med ical Multi-dose 6+ MO Branch Influenza Virus 2018-12-06 Completed Universit y of Vaccine [facility] IM 00:00:00 [place] Med ical Multi-dose 6+ MO Branch Influenza Virus 2018-12-06 Completed Universit y of Vaccine [facility] IM 00:00:00 [place] Med ical Multi-dose 6+ MO Branch Influenza Virus 2018-12-06 Completed Universit y of Vaccine [facility] IM 00:00:00 [place] Med ical Multi-dose 6+ MO Branch Influenza Virus 2018-12-06 Completed Universit y of Vaccine [facility] IM 00:00:00 [place] Med ical Multi-dose 6+ MO Branch Influenza Virus 2018-12-06 Completed Universit y of Vaccine [facility] IM 00:00:00 [place] Med ical Multi-dose 6+ MO Branch Influenza Virus 2018-12-06 Completed Universit y of Vaccine [facility] 00:00:00 [place] Med ical Multi-dose 6+ MO Branch Influenza Virus 2018-12-06 Completed Universit y of Vaccine [facility] 00:00:00 [place] Med ical Multi-dose 6+ MO Branch Influenza Virus 2018-12-06 Completed Universit y of Vaccine [facility] IM 00:00:00 [place] Med ical Multi-dose 6+ MO Branch Influenza Virus 2018-12-06 Completed Universit y of Vaccine [facility] IM 00:00:00 [place] Med ical Multi-dose 6+ MO Branch Influenza Virus 2018-12-06 Completed Universit y of Vaccine [facility] 00:00:00 [place] Med ical Multi-dose 6+ MO Branch Influenza Virus 2018-12-06 Completed Universit y of Vaccine [facility] 00:00:00 [place] Med ical Multi-dose 6+ MO Branch Influenza Virus 2018-12-06 Completed Universit y of Vaccine [facility] 00:00:00 [place] Med ical Multi-dose 6+ MO Branch Influenza Virus 2018-12-06 Completed Universit y of Vaccine [facility] 00:00:00 [place] Med ical Multi-dose 6+ MO Branch Influenza Virus 2018-12-06 Completed Universit y of Vaccine [facility] IM 00:00:00 [place] Med ical Multi-dose 6+ MO Branch Influenza Virus 2018-12-06 Completed Universit y of Vaccine [facility] 00:00:00 [place] Med ical Multi-dose 6+ MO Branch Influenza Virus 2018-12-06 Completed Universit y of Vaccine [facility] 00:00:00 [place] Med ical Multi-dose 6+ MO Branch Influenza Virus 2018-12-06 Completed Universit y of Vaccine [facility] 00:00:00 [place] Med ical Multi-dose 6+ MO Branch Influenza Virus 2018-12-06 Completed Universit y of Vaccine [place] [facility] 00:00:00 [place] Med ical Multi-dose 6+ MO Branch Influenza Virus 2018-12-06 Completed Universit y of Vaccine [facility] 00:00:00 [place] Med ical Multi-dose 6+ MO Branch Influenza Virus 2018-12-06 Completed Universit y of Vaccine [facility] 00:00:00 [place] Med ical Multi-dose 6+ MO Branch Influenza Virus 2018-12-06 Completed Universit y of Vaccine [facility] IM 00:00:00 [place] Med ical Multi-dose 6+ MO Branch Influenza Virus 2018-12-06 Completed Universit y of Vaccine [facility] IM 00:00:00 [place] Med ical Multi-dose 6+ MO Branch Influenza Virus 2018-12-06 Completed Universit y of Vaccine [facility] IM 00:00:00 [place] Med ical Multi-dose 6+ MO Branch Vital Signs Vital Name Observation Time Observation Value Comments Source Systolic [facility] 2019-10-16 04:36:00 [facility] Diastolic blood 2019-10-16 04:36:00 88 [facility]Hg[facility] Heart rate 2019-10-16 04:36:00 54 /min [facility] Respiratory rate 2019-10-16 04:36:00 14 /min [facility] Oxygen saturation in 2019-10-16 04:36:00 98 /min [facility] Arterial blood by [facility] [place] [facility] Pulse oximetry Branch BMI 2019-10-16 01:41:00 30.18 kg/m2 [facility] Body temperature 2019-10-16 01:41:00 36.39 Nikki [facility] Body height 2019-10-16 01:41:00 167.6 cm [facility] Body weight 2019-10-16 01:41:00 84.823 kg [facility] Procedures Procedure Date / Time Performing Clinician Source Performed XR CHEST 1 VW 2019-10-16 02:40:33 Mannie Harry [facility] TROPONIN I 2019-10-16 02:08:00 Mannie Harry [facility] BASIC METABOLIC PANEL 2019-10-16 02:08:00 Mannie Harry [facility] (NA, K, CL, CO2, Medical Branch GLUCOSE, BUN, CREATININE, CA) CBC WITH DIFFERENTIAL 2019-10-16 02:08:00 Mannie Harry [facility] EKG-12 LEAD 2019-10-16 01:56:40 Mannie Harry [facility] NOTICE OF PRIVACY 2019-10-16 01:31:00 Doctor Unassigned, No [facility] PRACTICES Name Medical Branch CONSENT/REFUSAL FOR 2019-10-16 01:30:41 Doctor Unassigned, No Un [facility] DIAGNOSIS AND TREATMENT Name Medical Branch Encounters Start End Encounter Admission Attending Care Care Encounter Source Date/Time Date/Time Type Type Clinicians Facility Department ID 2022-09-06 2022-09-06 [facility] [id number] Univers 00:00:00 00:00:00 Jasmin CURRY [id number] i ty [facility] [id number] [id number] [address] 2022-04-19 2022-04-19 [facility] [id number] Univers 00:00:00 00:00:00 Jasmin CURRY [id number] i ty [facility] [id number] [id number] [address] 2022-04-04 2022-04-04 Outpatient R [facility] [id number] Univers 15:30:00 15:30:00 PHILLY OLIVAS ity [facility] [place] 2022-03-28 2022-03-28 Outpatient R [facility] [id number] Univers 16:00:00 16:00:00 PHILLY OLIVAS ity [facility] [place] 2022-03-23 2022-03-23 [facility] [id number] Univers 00:00:00 00:00:00 Jasmin CURRY 350.1.13.10 i ty of [facility] [place] [phone] [address] 2022-01-19 2022-01-19 Jane [facility] 1.2.840.114 [id number] Univers 00:00:00 00:00:00 Daria CURRY 350.1.13.10 ity of [facility] [place] [phone] Ia dical NAL 044 [facility] 2021-08-06 2021-08-[address] [facility] 1.2.840.114 [id number] Univers 00:00:00 00:00:00 Daria CURRY 350.1.13.10 [place] [phone] Ia dical NAL [address] [place] [address] 2021-07-20 2021-07-20 [facility] 1.2.840.114 [id number] Univers 00:00:00 00:00:00 Jasmin Curry 350.1.13.10 i ty [place] [phone] Ia dical nal [address] [place] [address] 2021-06-15 2021-06-15 [facility] [id number] Univers 15:40:00 15:40:00 JASMIN itteresita of [facility] 2021-04-25 2021-04-25 [facility] 1.2.840.114 [id number] Univers 00:00:00 00:00:00 Daria Curry 350.1.13.10 ity of [place] [phone] Ia dical nal 044 [facility] 2021-04-24 2021-04-24 [facility] 1.2.840.114 [id number] Univers 00:00:00 00:00:00 Jasmin Curry 350.1.13.10 i ty [place] [phone] Ia dical nal 044 [facility] 2021-04-18 2021-04-18 [facility] 1.2.840.114 [id number] Univers 00:00:00 00:00:00 Daria Curry 350.1.13.10 ity [place] [phone] [address] 2021-04-18 2021-04-18 Refill Lilly, [facility] 1.2.840.114 [id number] Univers 00:00:00 00:00:00 Daria A [place] 350.1.13.10 ity of [place] [phone] [address] 2021-04-14 2021-04-14 Refill Lilly, [facility] 1.2.840.114 [id number] Univers 00:00:00 00:00:00 Daria A [place] 350.1.13.10 ity of [place] [phone] [address] 2021-04-14 2021-04-14 Refill Lilly, [facility] 1.2.840.114 [id number] Univers 00:00:00 00:00:00 Daria A [place] 350.1.13.10 ity of [place] [phone] [address] 2021-04-05 2021-04-05 Refill Lee, [facility] 1.2.840.114 [id number] Univers 00:00:00 00:00:00 [facility] 350.1.13.10 [place] [phone] [address] 2021-03-24 2021-03-24 Refill Lee, [facility] 1.2.840.114 [id number] Univers 00:00:00 00:00:00 [facility] 350.1.13.10 [place] [phone] [address] 2021-03-18 2021-03-18 Refill Lilly, [facility] 1.2.840.114 [id number] Univers 00:00:00 00:00:00 Daria A [place] 350.1.13.10 ity of [place] [address] [phone] [facility] 231 [facility] 2021-03-18 2021-03-18 Refwilliam BeverlyLINCOL[facility] 1.2.840.114 [id number] Univers 00:00:00 00:00:00 Jasmin Curry 350.1.13.10 i ty [place] [address] [phone] [facility] 044 [facility] 2021-03-15 2021-03-15 Telemedici [facility] 1.2.840.114 [id number] Univers 11:56:16 11:56:30 ne Visit Jasmin Curry 350.1.13.10 ity of [place] [phone] [address] 2021-03-15 2021-03-15 Outpatient R [facility] [id number] Univers 08:15:00 08:15:00 JASMIN diaz [facility] [place] 2021-03-14 2021-03-14 [facility] 1.2.840.114 [id number] Univers 00:00:00 00:00:00 Jasmin Curry 350.1.13.10 i ty [place] [phone] [address] 2021-02-22 2021-02-22 Outpatient R SIRIA [facility] [id number] Univers 16:00:00 16:00:00 JASMIN diaz [facility] 2021-02-21 2021-02-21 [facility] [id number] Univers 15:00:00 15:00:00 JASMIN diaz [facility] [place] 2021-02-14 2021-02-14 Jane [facility] 1.2.840.114 [id number] Univers 00:00:00 00:00:00 Jasmin Curry 350.1.13.10 i ty [place] [phone] Ia dical nal 044 [facility] 2021-01-18 2021-01-18 Refwilliam [facility] 1.2.840.114 [id number] Univers 00:00:00 00:00:00 Jasmin Curry 350.1.13.10 i ty [place] [phone] Ia dical [facility] 044 [facility] 2020-12-08 2020-12-08 Refwilliam MaxxLINCOL[facility] 1.2.840.114 [id number] Univers 00:00:00 00:00:00 Daria Curry 350.1.13.10 ity of [place] [phone] Ia dical [facility] 231 [facility] 2020-12-06 2020-12-06 Patient Jose [facility] 1.2.840.114 [id number] Univers 00:00:00 00:00:00 Outreach [facility] 350.1.13.10 i ty of [facility] 4[place]2.7.2.[place] [phone] [facility] [address] 2020-12-03 2020-12-03 [facility] 1.2.840.114 [id number] Univers 00:00:00 00:00:00 Daria Curry 350.1.13.10 [place]y of [place] [phone] [facility] 231 [facility] 2020-10-25 2020-10-25 Outpatient R [facility] [id number] Univers 14:00:00 14:00:00 ity [facility] [place] 2020-10-14 2020-10-14 Outpatient R [facility] [id number] Univers 16:00:00 16:00:00 [facility] 2020-10-13 2020-10-13 [facility] [id number] Univers 14:20:00 14:20:00 JASMIN [facility] 2020-10-06 2020-10-06 Outpatient R [facility] [id number] Univers 16:00:00 16:00:00 ity [facility] [place] 2020-09-15 2020-09-16 Telemedici [facility] 1.2.840.114 [id number] Univers 08:09:15 15:12:43 ne Visit Daria Curry 350.1.13.10 it[place] [phone] [facility] 231 [facility] 2020-09-15 2020-09-15 [facility] [id number] Univers 16:40:00 16:40:00 DARIA [facility] 2020-09-15 2020-09-15 [facility] 1.2.840.114 [id number] Univers 00:00:00 00:00:00 Jasmin Curry 350.1.13.10 i ty [place] [phone] [address] 2020-09-11 2020-09-11 [facility] 1.2.840.114 [id number] Univers 00:00:00 00:00:00 Jasmin Curry 350.1.13.10 i ty [place] 4[place] [phone] [address] 2020-09-05 2020-09-05 [facility] 1.2.840.114 [id number] Univers 00:00:00 00:00:00 Jasmin Curry 350.1.13.10 i ty [place] 4[place] [phone] [address] 2020-08-18 2020-08-18 [facility] 1.2.840.114 [id number] Univers 00:00:00 00:00:00 Daria Curry 350.1.13.10 ity of [place] [phone] Ia [facility] 231 [facility] 2020-08-09 2020-08-09 Refill [facility] 1.2.840.114 [id number] Univers 00:00:00 00:00:00 Jasmin Curry 350.1.13.10 i ty [place] 4[place] [phone] [address] 2020-07-14 2020-07-14 Outpatient R [facility] [id number] Univers 10:40:00 10:40:00 [facility] 2020-07-07 2020-07-07 Outpatient R [facility] [id number] Univers 15:00:00 15:00:00 [facility] 2020-07-06 2020-07-06 Telephone [facility] 1.2.840.114 [id number] Univers 00:00:00 00:00:00 Jasmin Curry 350.1.13.10 i ty [place] [phone] [address] 2020-07-02 2020-07-02 [facility] 1.2.840.114 [id number] Univers 00:00:00 00:00:00 Jasmin Curry 350.1.13.10 i ty of [place] 4[place].2.[place] [phone] [address] 2020-06-29 2020-06-29 [facility] 1.2.840.114 [id number] Univers 00:00:00 00:00:00 Jasmin Curry 350.1.13.10 i ty [place]2.[place] [phone] [address] 2020-05-05 2020-05-05 [facility] 1.2.840.114 [id number] Univers 00:00:00 00:00:00 Jasmin Curry 350.1.13.10 i ty [place]2.[place] [phone] [facility] 044 [facility] 2020-02-19 2020-02-19 Refill Siria, [facility] 1.2.840.114 [id number] Univers 00:00:00 00:00:00 Jasmin Curry 350.1.13.10 i ty [place] 4[place]2.[place] [phone] [address] 2019-10-15 2019-10-15 Emergency Kamryn, [facility] 1.2.121.112 [id number] Univers 19:52:19 22:54:00 Mannie Curry 350.1.13.10 i ty [place] [phone] [address] 2019-05-21 2019-05-21 Refill [facility] 1.2.840.114 [id number] Univers 00:00:00 00:00:00 Smitha Curry 350.1.13.10 ity of [place] [phone] [address] 2019-05-08 2019-05-08 Refwilliam LomasLINCOLN [facility] 1.2.840.114 [id number] Univers 00:00:00 00:00:00 Smitha Curry 350.1.13.10 ity of [place] 4[place]2.[place] [phone] [address] 2019-05-06 2019-05-06 Refill [facility] 1.2.840.114 [id number] Univers 00:00:00 00:00:00 Smitha Curry 350.1.13.10 ity of [place] 4[place]2.[place] [phone] [address] 2019-05-04 2019-05-04 Refwilliam LomasLINCOLN [facility] 1.2.840.114 [id number] Univers 00:00:00 00:00:00 Smitha Finnegan.HAyo Bhavik 350.1.13.10 [facility] [place] 4.2.7.2.686 Olman Garber [phone] Ia dical nal [address] Results Test Description Test Time Test Comments Results Result Comments Source Troponin I 2019-10-16 03:31:00 Test Item Value Reference Range Interpretation Comme nts TROPONIN I (test code = 0.009 ng/mL See_Comment [Au tomated message] The [id number]) system which ge nerated this result tra nsmitted reference range : <=0.034. The reference r rahda was not used to int erpret this result as normal/abnormal . MICHEAL (test code = MICHEAL) Equal or Less than 0.034 ng/ml---Normal ?Note: Cardiac troponin begins to rise 3-4 hours after the onset of ischemia. Repeat in 4-6 hours if the sample was drawn within 3-4 hours of the onset of the symptom and found normal. Between 0.035 and 0.120 ng/mL--- Borderline. Questionable myocardial injury or necrosis ? ?Note: Serial measurement may be necessary to confirm or exclude the diagnosis of myocardial injury or necrosis; Clinical correlation (symptoms, EKGs, imaging studies, and others) required; Repeat in 4-6 hours if clinically indicated. ? Equal or Higher than 0.121 ng/mL---Abnormal. Myocardial Injury or Necrosis Likely ? Biotin has been reported to cause a negative bias, interpret results relative to patient's use of biotin. ? Lab Interpretation (test Normal code = 13123-2) [facility] (NA, K, CL, CO2, GLUCOSE, BUN, CREATININE, CA)2019-10-16 03:21:00 Test Item Value Reference Range Interpretation Comments NA (test code = 130 mmol/L 135-145 L 3715755874) K (test code = 3.6 mmol/L 3.5-5 4043428601) CL (test code = 90 mmol/L 98-108 L 6129399073) CO2 TOTAL (test code = 27 mmol/L 23-31 0667570944) AGAP (test code = 2-16 1443011564) BUN (test code = 23 mg/dL 7-23 3112396139) GLUCOSE (test code = 124 mg/dL 70-110 H 6317739026) CREATININE (test code = 1.61 mg/dL 0.6-1.25 H 2452989986) CALCIUM (test code = 9.6 mg/dL 8.6-10.6 2690041221) eGFR Calculation mL/min/1.73m2 (Non-) (test code = 6193007228) eGFR Calculation mL/min/1.73m2 () (test code = 6399685706) MICHEAL (test code = MICHEAL) Association of Glomerular Filtration Rate (GFR) and Staging of Kidney Disease* + --+ --+ ------+| GFR (mL/min/1.73 m2) ?| With Kidney Damage ?| ?Without Kidney Damage+ --------+ --------+ +| ?>90 ?| ?Stage one ?| ? Normal ?+ ---+ ---+ -------+| ?60-89 ?| ?Stage two ?| ? Decreased GFR ? + --+ --+ ------+| ?30-59 ?| ?Stage three ?| ? Stage three ? + --+ --+ ------+| ?15-29 ?| ?Stage four ? | ? Stage four ?+ ---+ ---+ -------+| ?<15 (or dialysis) ? ?| ?Stage five ? | ? Stage five ?+ ---+ ---+ -------+ *Each stage assumes the associated GFR level has been in effect for at least three months. ?Stages 1 to 5, with or without kidney disease, indicate chronic kidney disease. Notes: Determination of stages one and two (with eGFR >59mL/min/1.73 m2) requires estimation of kidney damage for at least three months as defined by structural or functional abnormalities of the kidney, manifested by either:Pathological abnormalities or Markers of kidney damage (including abnormalities in the composition of the blood or urine or abnormalities in imaging tests). Lab Interpretation Abnormal (test code = 25708-7) [facility] 1 [id number] 03:15:31 No acute cardiopulmonary process. RL: 6200 Patient name: RENEE CASTRO: 1955 64 years EXAMINATION: XR CHEST 1 VW Ordering Physician: MANNIE HARRY CLINICAL HISTORY:chest pain COMPARISON:08/22/2019 TECHNIQUE:Single frontal viewof the chest was performed. FINDINGS:Normal lung volumes. No focal infiltrate or consolidation. No effusion orpneumothorax. Heart size is normal without edema. Normal aortic contours.No acute osseous abnormality. [facility], Radiant Results Inft User - 10/15/2019 9:16 PM CSTPatient name: RENEE CASTRO: 1955 64 years EXAMINATION: XR CHEST 1 VWOrdering Physician: MANNIE HARRY CLINICAL HISTORY:chest pain COMPARISON:08/22/2019TECHNIQUE:Single frontal view of the chest was performed.FINDINGS:Normal lung volumes. No focal infiltrate or consolidation. No effusion orpneumothorax. Heart size is normal without edema. Normal aortic contours.No acute osseous abnormality.IMPRESSIONNo acute cardiopulmonary process.RL: 6200 [facility] 2019-10-16 02:47:00 Test Item Value Reference Range Interpretation Comments WBC (test code = See_Comment [Automated 9890-2) message] The sy stem which generated this result transmitted reference range : 4.20 - 10.70 10*3/?L. The reference range was not used to interpret this result as normal/abnormal . RBC (test code = See_Comment [Automated 909-8) message] The sy stem which generated this result transmitted reference range : 4.26 - 5.52 10*6/?L. The reference range was not used to interpret this result as normal/abnormal . HGB (test code = 14.1 g/dL 12.2-16.4 718-7) HCT (test code = 40.1 % 38.4-49.3 4544-3) MCV (test code = 89.1 fL 81.7-95.6 787-2) MCH (test code = 31.3 pg 26.1-32.7 785-6) MCHC (test code = 35.2 g/dL 31.2-35 H 786-4) RDW-SD (test code = 41.3 fL 38.5-51.6 31400-7) RDW-CV (test code = 12.8 % 12.1-15.4 788-0) PLT (test code = See_Comment [Automated 777-3) message] The sy stem which generated this result transmitted reference range : 150 - 328 10*3/ ?L. The reference r radha was not used to interpret this result as normal/abnormal . MPV (test code = 10.7 fL 9.8-13 65124-7) NRBC/100 WBC (test See_Comment [Automat ed code = 3305419372) message] The system which generated this result transmitted reference range : 0.0 - 10.0 /100 WBCs. The refer ence range was not u sed to interpret th is result as normal/abnormal . NRBC x10^3 (test code <0.01 See_Comment [Auto mated = 0796018481) message] The s ystem which generated this result transmitted reference range : 10*3/?L. The reference range was not used to interpret this result as normal/abnormal . GRAN MAT (NEUT) % 67.9 % (test code = 770-8) IMM GRAN % (test code 0.80 % = 2384836600) LYMPH % (test code = 19.1 % 736-9) MONO % (test code = 7.5 % 5905-5) EOS % (test code = 4.0 % 713-8) BASO % (test code = 0.7 % 706-2) GRAN MAT x10^3(ANC) 7.22 10*3/uL 1.99-6.95 H (test code = 3086134453) IMM GRAN x10^3 (test 0.08 10*3/uL 0-0.06 H code = 8371717411) LYMPH x10^3 (test code 2.02 10*3/uL 1.09-3.23 = 731-0) MONO x10^3 (test code 0.79 10*3/uL 0.36-1.02 = 742-7) EOS x10^3 (test code = 0.42 10*3/uL 0.06-0.53 711-2) BASO x10^3 (test code 0.07 10*3/uL 0.01-0.09 = 704-7) Lab Interpretation Abnormal (test code = 93578-2) [facility]
[2023-01-22 11:15] LABS: Absolute Lymphocytes (CBC) 1.2 K/uL (0.7-4.9); Hematocrit 32.1 % (39.6-49.0); MCV 89.1 fL (80-100); MPV 8.1 fL (7.6-11.3)
[2023-01-22] MEDS ORDERED: ONDANSETRON 4 MG/2 ML VIAL ONE (11:22)
[2023-01-22] MEDS ORDERED: MORPHINE 4 MG/ML SYR ONE ×2 (11:22→12:03)
--- NOTE | 2023-01-22 11:33 | RAD REPORT ---
EXAM DESCRIPTION: US - Abdomen Exam Limited - 01/22/2023 10:44 am CLINICAL HISTORY: ABD PAIN COMPARISON: Abdomen Pelvis Scan dated 04/16/2016 TECHNIQUE: Sonographic grayscale and color flow images of the right upper abdominal quadrant were obtained. FINDINGS: The gallbladder demonstrates no gallstones. A non mobile isoechoic polyp measuring 4 nancy meter is seen along the anterior wall. No pericholecystic fluid or gallbladder wall thickening. The c ommon bile duct is normal measuring 4 mm. The liver demonstrates no findings of intrahepatic biliary dilatation. IMPRESSION: No acute findings. Incidentally noted 4 millimeter non mobile gallbladder wall polyp.
[2023-01-22 11:35] LABS: Albumin 3.8 g/dL (3.4-5.0); Bilirubin Direct 0.4 mg/dL (0-0.2); Bilirubin Total 1.7 mg/dL (0.2-1.0); Magnesium 2.4 mg/dL (1.6-2.4); Protein, Total 8.5 g/dL (6.4-8.2)
[2023-01-22] MEDS ORDERED: Nicardipine/NS 25 MG/250 ML KIT IV ONE (11:47)
--- NOTE | 2023-01-22 11:50 | EDPHYS ---
Physician Documentation [facility] Name: Kd Campbell Age: 67 yrs Sex: Male : 1955 Arrival Date: 01/22/2023 Time: 10:03 Bed 8 Private MD: ED Physician Corky Huber HPI: 01/22 10:22 This 67 yrs old Male presents to ER via Unassigned with complaints of Abdominal Pain, ms3 High Blood Pressure, Vision Problem. 10:22 67-year-old male with past medical history of hypertension presents for abdominal pain ms3 that began yesterday and is located in the right upper quadrant 07/09. Patient describes his pain as being sharp. Patient denies nausea, vomiting. Patient endorses subjective fever. Patient also notes he has been short of breath for the last 4 weeks. Patient's shortness of breath is worse with exertion. Patient has had mild swelling in his feet. Patient also notes he has had floaters in his vision for the last 2 weeks.. Historical: - Allergies: 10:50 bee venom (honey bee); ap3 10:50 Clonidine; ap3 10:50 Lexapro; ap3 10:50 PENICILLINS; ap3 10:50 Wellbutrin; ap3 10:50 Depakote; ap3 - PMHx: 10:50 Anxiety; Hypertension; MANIC DEPRESSION; pnemonia; ap3 - Immunization history:: Client reports receiving the 1st dose of the Covid vaccine. - Social history:: Smoking status: Patient reports the use of cigarette tobacco products, denies chronic smoking, but will smoke occasionally. ROS: 10:22 Neck: Negative for injury, pain, and swelling, MS/Extremity: Negative for injury and ms3 deformity, Skin: Negative for injury, rash, and discoloration. 10:22 Constitutional: Positive for fever. 10:22 Eyes: Positive for visual disturbance. 10:22 Respiratory: Positive for dyspnea on exertion, shortness of breath. 10:22 Abdomen/GI: Positive for abdominal pain. 10:22 All other systems are negative. Exam: 10:22 Constitutional: This is a well developed, well nourished patient who is awake, alert, ms3 and in no acute distress. Head/Face: Normocephalic, atraumatic. Eyes: Pupils equal round and reactive to light, extra-ocular motions intact. Lids and lashes normal. Conjunctiva and sclera are non-icteric and not injected. Periorbital areas with no swelling, redness, or edema. Neck: Trachea midline, no cervical lymphadenopathy. Supple, full range of motion without nuchal rigidity, or vertebral point tenderness. No Meningismus. Chest/axilla: Normal chest wall appearance and motion. Nontender with no deformity. Cardiovascular: Regular rate and rhythm with a normal S1 and S2. No gallops, murmurs, or rubs. Normal PMI, no JVD. No pulse deficits. Respiratory: Lungs have equal breath sounds bilaterally, clear to auscultation and percussion. No rales, rhonchi or wheezes noted. No increased work of breathing, no retractions or nasal flaring. 10:22 Abdomen/GI: Inspection: abdomen appears normal, Bowel sounds: normal, Palpation: moderate abdominal tenderness, in the right upper quadrant. 11:53 ECG was reviewed by the Attending Physician. ms3 Vital Signs: 10:48 Pulse 105; Resp 17; Pulse Ox 96% ; Weight 90.72 kg; Pain 10/10; ap3 10:51 BP 265 / 134; ap3 11:23 BP 268 / 142; Pulse 106; Resp 18; Pulse Ox 97% on R/A; ld1 11:49 BP 265 / 128; Pulse 102; Resp 31; Pulse Ox 93% on 2 lpm NC; ld1 12:05 BP 223 / 98; Pulse 99; Resp 22 S; Pulse Ox 94% on 2 lpm NC; iw 12:09 BP 227 / 87; Pulse 99; Pulse Ox 94% on 2 lpm NC; iw 12:15 BP 223 / 84; Pulse 94; Resp 26; Pulse Ox 94% on 2 lpm NC; ld1 12:21 BP 197 / 81; Pulse 96; Resp 27; Pulse Ox 96% on 2 lpm NC; ld1 12:41 BP 174 / 67; Pulse 91; Resp 22; Pulse Ox 93% on 2 lpm NC; iw 13:44 BP 175 / 77; Pulse 91; Resp 22; Pulse Ox 92% on 2 lpm NC; iw 13:55 BP 173 / 75; Pulse 90; Resp 24; Pulse Ox 93% on 2 lpm NC; ld1 10:48 Pain Scale: Adult ap3 Florien Coma Score: 12:29 Eye Response: spontaneous(4). Motor Response: obeys commands(6). Verbal Response: iw oriented(5). Total: 15. MDM: 10:22 Differential diagnosis: Cholecystitis vs CHF vs headache. ms3 10:56 Patient medically screened. ms3 11:50 Data reviewed: vital signs, nurses notes, lab test result(s), EKG, radiologic studies, ms3 CT scan, and as a result, I will transfer patieint. Consideration of Admission/Observation Transfer. Management of patient was discussed with the following: Stick Welder: Dr Madera via [facility] AI chat. I considered the following discharge prescriptions or medication management in the emergency department Medications were administered in the Emergency Department. See MAR. Independent interpretation of the following test(s) in the Emergency Department CT Scan: My interpretation is CT Head images reviewed showing ICH. Historians other than the Patient: Spouse/Significant Other: . Counseling: I had a detailed discussion with the patient and/or guardian regarding: the historical points, exam findings, and any diagnostic results supporting the discharge/admit diagnosis, lab results, radiology results, the need to transfer to another facility, [facility] does not immediately have the required specialist. ED course: Discussed ICH with patient and his . [place] ggt intiated. . 12:26 ED course: Dr Stark would like SBP 180-160.. 01/22 10:22 Order name: Basic Metabolic Panel; Complete Time: 11:01/22 10:22 Order name: CBC with Diff; Complete Time: 11:01/22 10:22 Order name: LFT's; Complete Time: 11:01/22 10:22 Order name: Magnesium; Complete Time: 11:01/22 10:22 Order name: NT PRO-BNP; Complete Time: 11:01/22 10:22 Order name: Troponin HS; Complete Time: 11:01/22 10:22 Order name: XRAY Chest (1 view); Complete Time: 12:13 01/22 10:22 Order name: CT Head Brain wo Cont; Complete Time: 12:13 01/22 10:22 Order name: US Abdomen Limited; Complete Time: 11:52 01/22 10:22 Order name: EKG; Complete Time: 10:23 01/22 10:22 Order name: Cardiac monitoring; Complete Time: 11:23 ms3 01/22 10:22 Order name: EKG - Nurse/Tech; Complete Time: 11:47 ms3 01/22 10:22 Order name: IV Saline Lock; Complete Time: 11:14 ms3 01/22 10:22 Order name: Labs collected and sent; Complete Time: 11:14 ms3 01/22 10:22 Order name: O2 Per Protocol; Complete Time: 11: ms3 01/22 10:22 Order name: O2 Sat Monitoring; Complete Time: 11: ms EC:53 Rate is 110 beats/min. Rhythm is regular. QRS [place] is Normal. CO interval is normal. ms3 QRS interval is normal. Clinical impression: Sinus tachycardia. Interpreted by me. Reviewed by me. Administered Medications: 11:23 Drug: morphine IVP or IV 4 mg Route: IVP; Infused Over: 4 mins; Site: left antecubital; ld1 11:46 Drug: niCARdipine IV 5 mg/hr Route: IV; Rate: calculated rate; Site: left antecubital; ld1 11:59 Follow up: Rate change 15 mg/hr cm9 12:14 Drug: morphine IVP or IV 4 mg Route: IVP; Infused Over: 4 mins; Site: right antecubital;cm9 Disposition Summary: 01/22/23 11:49 Transfer Ordered Transfer Location: [facility] ms3 Reason: Higher level of care ms3 Condition: Stable ms3 Problem: new ms3 Symptoms: are unchanged ms3 Accepting Physician: Dr Crocker(01/22/23 13:57) ld1 Diagnosis - Nontraumatic intracranial hemorrhage, unspecified ms3 - Headache ms3 - Other visual disturbances ms3 - Hypertensive emergency ms3 - Heart failure, unspecified ms3 - Anemia, unspecified ms3 - Upper abdominal pain, unspecified ms3 Forms: - Medication Reconciliation Form ms3 - SBAR form ms3 Critical care time excluding procedures: 11:52 Critical care time: Bedside Care: 45 minutes, Consultation: 10 minutes, Family ms3 Intervention: 10 minutes. Total time: 65 minutes Signatures: Dispatcher [employer] EDChantelle Nichole RN RN iw Prokisch, Amanda, RN RN ap3 HuberCorky DO DO ms3 Jacqueline Huber, RN RN ld1 Mary De La Cruz, RN RN cm9 Corrections: (The following items were deleted from the chart) 11 11:49 Dr Madera ms3 ms3 12: 11:53 Dr Madera ms3 ms3 13:57 12:26 Dr Crocker ms3 ld1
--- NOTE | 2023-01-22 11:50 | ER ---
Nurse's Notes [facility] Name: Kd Campbell Age: 67 yrs Sex: Male : 1955 Arrival Date: 01/22/2023 Time: 10:03 Bed 8 Private MD: Diagnosis: Nontraumatic intracranial hemorrhage, unspecified;Headache;Other visual disturbances;Hypertensive emergency;Heart failure, unspecified;Anemia, unspecified;Upper abdominal pain, unspecified Presentation: 01/22 10:48 Chief complaint: Patient states: he has been having right upper abdominal pain since ap3 this morning. patient reports the pain to be 10/10, and denies any nausea or vomiting at this time. Coronavirus screen: At this time, the client does not indicate any symptoms associated with coronavirus-19. Ebola Screen: No symptoms or risks identified at this time. Risk Assessment: Do you want to hurt yourself or someone else? Patient reports no desire to harm self or others. Onset of symptoms was January 22, 2023. 10:48 Method Of Arrival: Wheelchair ap3 10:51 Initial Sepsis Screen: Does the patient meet any 2 criteria? No. Patient's initial ap3 sepsis screen is negative. Does the patient have a suspected source of infection? Yes: Acute abdominal pain. 10:51 Acuity: VOLODYMYR 2 ap3 10:54 Chief complaint: Patient states: patient also states he is having brown "floaters" in ap3 his vision that has been present for approx one week. Triage Assessment: 10:52 General: Appears uncomfortable, Behavior is cooperative, appropriate for age, anxious. ap3 Pain: Complains of pain in right upper quadrant Pain currently is 10 out of 10 on a pain scale. Pain began this morning. Neuro: Level of Consciousness is awake, alert, obeys commands, Oriented to person, place, time, situation. Cardiovascular: Patient's skin is warm and dry. Respiratory: Airway is patent Respiratory effort is even, unlabored, Respiratory pattern is regular, symmetrical. GI: Reports upper abdominal pain. Historical: - Allergies: 10:50 bee venom (honey bee); ap3 10:50 Clonidine; ap3 10:50 Lexapro; ap3 10:50 PENICILLINS; ap3 10:50 Wellbutrin; ap3 10:50 Depakote; ap3 - PMHx: 10:50 Anxiety; Hypertension; MANIC DEPRESSION; pnemonia; ap3 - Immunization history:: Client reports receiving the 1st dose of the Covid vaccine. - Social history:: Smoking status: Patient reports the use of cigarette tobacco products, denies chronic smoking, but will smoke occasionally. Screenin:53 Abuse screen: Denies threats or abuse. Nutritional screening: No deficits noted. ap3 Tuberculosis screening: No symptoms or risk factors identified. 11:50 [facility] ED Fall Risk Assessment (Adult) History of falling in the last 3 months, ld1 including since admission No falls in past 3 months (0 pts). Assessment: 11:37 General: Appears in no apparent distress. uncomfortable, Behavior is cooperative, ld1 appropriate for age, anxious. 11:39 Reassessment: Notified ERP of BP. See [facility] for orders. ld1 11:47 Pain: Complains of pain in abdomen and right upper quadrant Pain does not radiate. Pain ld1 currently is 9 out of 10 on a pain scale. Quality of pain is described as sharp, shooting. Neuro: Level of Consciousness is awake, alert, obeys commands, Oriented to person, place, time, situation. Cardiovascular: Capillary refill < 3 seconds Patient's skin is warm and dry. Rhythm is sinus tachycardia. Respiratory: Airway is patent Respiratory effort is even, unlabored. GI: Abdomen is round non-distended, Abd is soft Abdomen is tender to palpation X 4 quads. Reports upper abdominal pain. : No signs and/or symptoms were reported regarding the genitourinary system. EENT: No signs and/or symptoms were reported regarding the EENT system. Derm: No signs and/or symptoms reported regarding the dermatologic system. Musculoskeletal: No signs and/or symptoms reported regarding the musculoskeletal system. 11:55 Reassessment: Dr. Katz requested Nicardipine rate change to 15mg/hr - See titration ld1 follow up. 12:14 Pain: Complains of pain in abdomen diffusely Pain at worst was 10 out of 10 on a pain cm9 scale. Quality of pain is described as sharp, shooting, stabbing, Pain began suddenly, Is continuous, Alleviated by medications, repositioning. 12:50 Reassessment: No changes from previously documented assessment. Patient and/or family ld1 updated on plan of care and expected duration. Pain level reassessed. 13:40 Reassessment: No changes from previously documented assessment. Patient and/or family ld1 updated on plan of care and expected duration. Pain level reassessed. Patient states symptoms have improved. Vital Signs: 10:48 Pulse 105; Resp 17; Pulse Ox 96% ; Weight 90.72 kg; Pain 10/10; ap3 10:51 BP 265 / 134; ap3 11:23 BP 268 / 142; Pulse 106; Resp 18; Pulse Ox 97% on R/A; ld1 11:49 BP 265 / 128; Pulse 102; Resp 31; Pulse Ox 93% on 2 lpm NC; ld1 12:05 BP 223 / 98; Pulse 99; Resp 22 S; Pulse Ox 94% on 2 lpm NC; iw 12:09 BP 227 / 87; Pulse 99; Pulse Ox 94% on 2 lpm NC; iw 12:15 BP 223 / 84; Pulse 94; Resp 26; Pulse Ox 94% on 2 lpm NC; ld1 12:21 BP 197 / 81; Pulse 96; Resp 27; Pulse Ox 96% on 2 lpm NC; ld1 12:41 BP 174 / 67; Pulse 91; Resp 22; Pulse Ox 93% on 2 lpm NC; iw 13:44 BP 175 / 77; Pulse 91; Resp 22; Pulse Ox 92% on 2 lpm NC; iw 13:55 BP 173 / 75; Pulse 90; Resp 24; Pulse Ox 93% on 2 lpm NC; ld1 10:48 Pain Scale: Adult ap3 Eulalia Coma Score: 12:29 Eye Response: spontaneous(4). Motor Response: obeys commands(6). Verbal Response: iw oriented(5). Total: 15. ED Course: 10:06 Patient arrived in ED. rg4 10:07 Corky Katz DO is Attending Physician. ms3 10:46 US Abdomen Limited In Process Unspecified. EDMS 10:52 Triage completed. ap3 10:53 Arm band placed on right wrist. ap3 10:59 Chantelle Morgan, MATTHEW is Primary Nurse. iw 11:08 Initial lab(s) drawn, by ma, sent to lab. Inserted saline lock: 20 gauge in left iw antecubital area, using aseptic technique. Blood collected. 11:37 CT Head Brain wo Cont In Process Unspecified. EDMS 11:50 Patient has correct armband on for positive identification. Placed in gown. Bed in low ld1 position. Call light in reach. Side rails up X2. site monitor on. Pulse ox on. NIBP on. Door closed. Noise minimized. Warm blanket given. 11:59 XRAY Chest (1 view) In Process Unspecified. EDMS 12:15 Inserted saline lock: 20 gauge in right antecubital area, using aseptic technique. cm9 13:21 1145 spoke with [facility] \\T\\transfer center to setup transfer ,dr to \\T\\[id number] ,at 1230 kj 1 called called [facility] back about admin approval, she stated they are waiting on bed told DR. KATZ WANTED TO [facility] PT SHE STATED THAT SHE WOULD CALL BACK , \\T\\ [id number] CALLED BACK AND LET SAGRARIO SPEAK WITH DR WOLFF AND SHE STILL HAD NO ETA ON BED ,SAID SHE WOULD SPEAK WITH HOUSE SUP AND CALL BACK . 13:56 No provider procedures requiring assistance completed. Patient transferred, IV remains ld1 in place. Administered Medications: 11:23 Drug: morphine IVP or IV 4 mg Route: IVP; Infused Over: 4 mins; Site: left antecubital; ld1 11:46 Drug: niCARdipine IV 5 mg/hr Route: IV; Rate: calculated rate; Site: left antecubital; ld1 11:59 Follow up: Rate change 15 mg/hr cm9 12:14 Drug: morphine IVP or IV 4 mg Route: IVP; Infused Over: 4 mins; Site: right antecubital;cm9 Medication: 11:50 VIS not applicable for this client. ld1 Outcome: 11:49 ER care complete, transfer ordered by . ms3 13:56 Transferred by helicopter ld1 13:56 Condition: stable 13:56 Instructed on the need for transfer. 13:57 Patient left the ED. ld1 Signatures: Dispatcher [employer] EDMS Chantelle Morgan, RN RN Pearl Woo rg4 Yoli Grier RN RN ap3 Rosaura Brizuela kj1 Corky Katz DO DO ms3 Jacqueline Katz, RN RN ld1 Mary De La Cruz, RN RN cm9 Corrections: (The following items were deleted from the chart) 12:09 12:05 BP 123 / 98; Pulse 99bpm; Resp 22bpm; Spontaneous; Pulse Ox 94% 2 lpm Nasal iw Cannula; iw
--- NOTE | 2023-01-22 11:54 | RAD REPORT ---
EXAM DESCRIPTION: CT - Head Brain Wo Cont - 01/22/2023 11:35 am CLINICAL HISTORY: confusion, vision changes COMPARISON: Head Brain Wo Cont dated 03/13/2018; Head Brain Wo Cont dated 04/16/2016 TECHNIQUE: Noncontrast head CT images ad were obtained without IV contrast. Multiplanar reformats we re generated and reviewed. All CT scans are performed using dose optimization technique as appropriate and may include automated exposure control or mA/KV adjustment according to patient size. FINDINGS: Left thalamic hyperdense parenchymal hemorrhage measuring 1.8 x 0.9 x 1.2 cm. Limited malcolm cent edema. Midline structures are unremarkable. Stable ventricular caliber with mild diffuse parenchymal volume loss. Patchy periventricular and deep white matter hypodensities are stable in extent and nonspecific, most suggestive of chronic small ve ssel ischemic changes. Rose-white matter differentiation is preserved, without evidence of acute infarct. No abnormal extra- axial fluid collections. Mastoid air cells and visualized portions of the paranasal sinuses are clear. No acute bony findings. IMPRESSION: Small left thalamic hyperdense parenchymal hemorrhage, possibly of hypertensive etiology . No ventriculomegaly or midline shift. The findings were communicated to Corky Huber on 01/22/2023 at 11:49 hours.
--- NOTE | 2023-01-22 12:11 | RAD REPORT ---
EXAM DESCRIPTION: Kevint Single View01/22/2023 11:57 am CLINICAL HISTORY: DYSPNEA COMPARISON: Chest Single View dated 03/13/2018; Chest Single View dated 04/14/2016; CHEST SINGLE VIEW dated 04/15/2015; CHEST PA AND LAT 2 VIEW dated 08/06/2013 TECHNIQUE: Portable AP view of the chest. FINDINGS: Cardiomegaly. Central interstitial prominence, and engorgement of the central vasculature. No pneumothorax or sizable effusion. No focal airspace opacity elsewhere. Mediastinal contours are o therwise unremarkable. . IMPRESSION: Findings suggestive of central congestion or CHF.
[2023-01-22 14:51] VITALS: BP 173/75; O2SAT 93
--- NOTE | 2023-01-25 07:08 | EKG ---
Test Date: 2023-01-22 Test Time: 11:43:35 [employer] Forms Builder: MELINA MEASUREMENT RESULTS: Intervals: Rate: 110 TN: 146 QRSD: 86 QT: 378 QTc: 511 [place]: P: 50 TN: 146 QRS: -17 T: 88 INTERPRETIVE STATEMENTS: Sinus tachycardia with occasional premature ventricular complexes Possible Left atrial enlargement Inferior infarct, age undetermined Abnormal ECG Compared to ECG 03/13/2018 03:25:09 Ventricular premature complex(es) now present Sinus rhythm no longer present Myocardial infarct finding still present Electronically Signed On 01-25-23 07:00:47 CDT by Ehsan Ramirez
== END 2023-01-22 13:57 | disposition short-term general hospital (02) ==
LOC: ER 10:03
DX: I62.9 Nontraumatic intracranial hemorrhage, unspecified (principal); I16.0 Hypertensive urgency; D64.9 Anemia, unspecified; R10.11 Right upper quadrant pain; H53.8 Other visual disturbances; I50.9 Heart failure, unspecified; Z72.0 Tobacco use; Z88.0 Allergy status to penicillin; Z88.8 Allergy status to other drugs, medicaments and biological substances; Z91.030 Bee allergy status
CPT/HCPCS: 93005; 85025; 80048; 36415; 83735; 80076; 84484; 83880; 70450; 71045; 76705; 99285; J2405

== ENCOUNTER 2023-07-28 16:49 | Inpatient (IN) | payer OTHER ==
--- OUTSIDE RECORDS SUMMARY | 2023-07-28 17:07 | XMS REPORT | Continuity of Care Document ---
:1955 Author Organization [facility] t Address [address] [facility] [address] [place] [id number] Care Team Providers Name Role Phone Jasmin Leonard MD Primary Care Physician JASMIN LEONARD Attending Clinician Unavailable TYESHA ZABALA Attending Clinician Unavailable MIGUELITO APARICIO Attending Clinician Unavailable Jasmin Leonard MD Attending Clinician Doctor Unassigned, [place] Attending Clinician Unavailable Keith Chance Attending Clinician KEITH MORENO Attending Clinician Unavailable Miguelito Aparicio MD Attending Clinician Nurse, [facility] Attending Clinician Unavailable ELIAS CASH Attending Clinician Unavailable ELIAS CASH Attending Clinician Unavailable KARTHIK MORENO Attending Clinician Unavailable Tyesha Zabala MD Attending Clinician Sanford Graf MD Attending Clinician MYRIAM IRAHETA Attending Clinician Unavailable SANFORD GRAF Attending Clinician Unavailable SANFORD GRAF Attending Clinician Unavailable ABRIL SMITH Attending Clinician Unavailable ABRIL SMITH Attending Clinician Unavailable Denise Villela Attending Clinician DENISE JAFFE Attending Clinician Unavailable 2, [facility] Attending Clinician Unavailable DENISE SOUSA Attending Clinician Unavailable Joe [facility], Peter Boyce Attending Clinician Rivera LANGFORD, Georges Partida Attending Clinician [phone] Yony Soni MD Attending Clinician Unavailable Johnny LANGFORD, Dean Attending Clinician Jose Francisco Bashir MD Attending Clinician JOSE FRANCISCO BASHIR Attending Clinician Unavailable PHILLY OLIVAS Attending Clinician Unavailable PHILLY OLIVAS Attending Clinician Unavailable Maxx LANGFORD, Daria Thomas Attending Clinician [phone] José Miguel Vital Attending Clinician Jayme Main DO Attending Clinician DARIA LILLY Attending Clinician Unavailable Vee Harry MD Attending Clinician Abebe LANGFORD, Smitha Hope Attending Clinician ELIAS CASH Admitting Clinician Unavailable YONY SONI Admitting Clinician Unavailable Payers Payer Name Policy Type Policy Number Effective Date Expiration Date S vy MEDICARE PART A [id number] 2010 \\T\\ B 00:00:00 Problems Condition Condition Condition Status Onset Resolution Last Treating Co mments Source Name Details Category Date Date Treatment Clinician Date Intracrani Intracrani Disease Active 2022-09 U nivers al al 0-05 [place] [facility] Hypoxia Hypoxia Disease Active Univers 9-23 ity of 00:00: [address] BPH with BPH with Disease Active Unive rs obstructio obstructio 9- it y of n/lower n/lower 00:00: [place] urinary urinary 00 Medical tract tract Branch symptoms symptoms Urinary Urinary Disease Active Univers retention retention 8- ity of 00:00: [address] Stage 4 Stage 4 Disease Active Univers chronic chronic 7-07 ity of kidney kidney 00:00: [place] disease disease 00 Medical Branch UTI due to UTI due to Disease Active U nivers Klebsiella Klebsiella 04-05 it y of species species 00:00: [address] Branch Benign Benign Disease Active Univers prostatic prostatic 04-05 ity of hyperplasi hyperplasi 00:00: Julio weiss a with a with 00 [facility] urinary urinary Branch retention retention 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 00:00: [place] with with 00 [facility] preserved preserved Bran ch ejection ejection fraction fraction Pulmonary Pulmonary Disease Active Uni vers hypertensi hypertensi 03-04 it y of on on 00:00: [address] Branch Hypertensi Hypertensi Disease Recurre [facility]25 [facility] intracereb intracereb 00:00: Me dical ral ral 00 [place] hemorrhage hemorrhage WOJCIECH (acute WOJCIECH (acute Disease Recurre [facility] kidney kidney nce 4[facility]25 [facility] injury) injury) 00:00: [address] Medical Medical Disease Active [facility] non-compli non-compli 4-25 [facility] ance ance 00:00: [address] HTN HTN Disease Active [facility] (hypertens (hypertens 4-25 [facility] ion) ion) 00:00: [address] Anxiety Anxiety Disease Active [facility] 4[facility]25 [facility] 00:00: [facility] [address] [place] Abdominal Abdominal Disease Active [facility] pain pain 4-25 [facility] 00:00: [facility] [address] [place] Hyperbilir Hyperbilir Disease Active [facility] ubinemia ubinemia 4-25 [facility] 00:00: [address] Cardiac Cardiac Disease Active 2018-09 Univers angina angina 2- ity of 00:00: [place] [facility] Branch Anxiety Anxiety Disease Active 2018-09 Univers and and 10-26 ity of depression depression 00:00: Julio weiss [facility] Branch Hyperlipid Hyperlipid Disease Active 2018-09 U nivers emia, emia, 1- ity of unspecifie unspecifie 00:00: Julio weiss d d 00 Medical hyperlipid hyperlipid Br anch emia type emia type Panic Panic Disease Active 2018-09 Univers attack attack 1-27 ity of 00:00: Medical Branch Hypertensi Hypertensi Disease Active 2017-09 U nivers ve urgency ve urgency 0-31 it y of 00:00: Medical Branch Essential Essential Disease Active 2017-09 Uni vers hypertensi hypertensi 0-30 it y of on on 00:00: Medical Branch 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 [...] (BMI 8-14 ity of 30-39.9) 30-39.9) 00:00: Medical Branch Atypical Atypical Disease Active Unive rs chest pain chest pain 7-21 it y of 00:00: Medical Branch Allergies, Adverse Reactions, Alerts Allergy Allergy Status Severity Reaction(s) Onset Inactive Treating Comm ents Source Name Type Date Date Clinician FLUOXETI DRUG Active EP Effects Univ ers NE INGREDI 04-25 ity of 00:00: Medical Branch Fluoxeti Propensi Active Extra Univer s ne ty to pyramidal 04-25 ity of adverse effects 00:00: [place] reaction 00 Medical s Branch Isosorbi Propensi Active Unknown - Uni vers de ty to See comments 04-25 ity of adverse 00:00: [place] reaction 00 Medical s Branch ISOSORBI DRUG Active Unknown-Cmnt Un javed DE INGREDI 7 ity of 00:00: Medical Branch CLONAZEP DRUG Active Dizziness 2023-0 Unive rs AM INGREDI 03-01 ity of 00:00: [place] 00 Medical Branch Clonazep Propensi Active Dizziness 2022-0 Makes Uni vers am ty to 03-01 extremely ity of adverse 00:00: sleepy [place] reaction 00 and dizzy Medic al s Branch Hydralaz Propensi Active Swelling 2022-[address] [facility] ine ty to 4-27 swelling [facility] adverse 00:00: Medical reaction 00 Center s HYDRALAZ Allergy Active High Swelling 2022-0 [facility] INE 4-27 00:00: 00 BEE Allergy Active High Anaphylaxis 2022-[address] [facility] [address] VENOM 4-25 [facility] PROTEIN 00:00: Medical (HONEY 00 Center BEE) CLONIDIN Allergy Active 2022-[address] [facility] [facility] E 4-25 [facility] 00:00: Medical 00 Center DIVALPRO Allergy Active 2022-[address] [facility] [facility] EX 4-25 [facility] 00:00: Medical 00 Center ESCITALO Allergy Active 2022-[address] [facility] PRAM 4-25 [facility] 00:00: Medical 00 Center PENICILL Allergy Active 2022-[address] [facility] [facility] INS 4-25 [facility] 00:00: Medical 00 Center BUPROPIO Allergy Active 2022-[address] [facility] N HCL 4-25 [facility] 00:00: Medical 00 Center Penicill Propensi Active 2022-[address] [facility] ins ty to 4-25 [facility] adverse 00:00: Medical reaction 00 Center s Bupropio Propensi Active 2022-[address] n Hcl ty to 4-25 [facility] adverse 00:00: Medical reaction 00 Center s Bee Propensi Active Anaphylaxis 2022-[address] [facility] Venom ty to 4-25 [facility] Protein adverse 00:00: Medical (Honey reaction 00 Center Bee) s Clonidin Propensi Active 2022-[address] [facility] e ty to 4-25 [facility] adverse 00:00: Medical reaction 00 Center s Divalpro Propensi Active 2022-[address] [facility] ex ty to 4-25 [facility] adverse 00:00: Medical reaction 00 Center s Escitalo Propensi Active 2022-[address] [facility] pram ty to 4-25 [facility] adverse 00:00: Medical reaction 00 Center s VENOM-HO DRUG Active High Anaphylaxis 0 Uni vers RENO BEE INGREDI 4-25 ity of 00:00: [place] 00 Medical Branch DIVALPRO DRUG Active Other-Cmnt 2023-0 Univ ers EX INGREDI 4-25 ity of SODIUM 00:00: [place] 00 Medical Branch Hydralaz Propensi Active Swelling 2016- Symptoms Un javed ine ty to 10-24 of ity of adverse 00:00: itching [place] reaction 00 and Medical s swellingH Branch and swellingS ymptoms of itching and swellingH and swelling HYDRALAZ DRUG Active High Rash 2016- Univers INE INGREDI 10-24 ity of 00:00: [place] 00 Medical Branch Penicill Propensi Active Other - See 2016 Childhoo d Univers in ty to comments 04-19 allergy, ity of adverse 00:00: "maybe it [place] reaction 00 gives me Medica l s a rash" Branch Clonidin Propensi Active Anaphylaxis 2015- U nivers e ty to 04-19 ity of adverse 00:00: [place] reaction 00 Medical s Branch Escitalo Propensi Active Anxiety 2015- Unive rs pram ty to 04-19 ity of Oxalate adverse 00:00: [place] reaction 00 Medical s Branch Penicill Propensi Active Other - See Childhoo d Univers in ty to comments 04-19 allergy, ity of adverse 00:00: "maybe it [place] reaction 00 gives me Medica l s a rash" Branch CLONIDIN DRUG Active High Anaphylaxis 2015- Uni vers E INGREDI 04-19 ity of 00:00: [place] Medical Branch ESCITALO DRUG Active Anxiety 2015- Univers PRAM INGREDI 04-19 ity of OXALATE 00:00: [place] 00 Medical Branch PENICILL DRUG Active Other-Cmnt 2015- Univ ers IN INGREDI 04-19 ity of 00:00: [place] 00 Medical Branch Bee Propensi Active Rash Univers Sting / ty to 04-18 ity of Venom adverse 00:00: [place] reaction 00 Medical s Branch Bupropio Propensi Active Rash 2015- Univer s n ty to 04-18 ity of adverse 00:00: [place] reaction 00 Medical s Branch Bee Drug Active Anaphylaxis 2015- Unive rs Sting / Allergy 04-18 ity of Venom 00:00: [place] 00 Medical Branch BEE DRUG Active High Anaphylaxis 2015- Unive rs STING / INGREDI 04-18 ity of VENOM 00:00: [place] 00 Medical Branch BUPROPIO DRUG Active Rash 2015- Univers N INGREDI 04-18 ity of 00:00: [place] 00 Medical Branch Social History Social Habit Start Date Stop Date Quantity Comments Source Gender identity Universit y [facility] Sexual orientation Univer sity of [facility] Exposure to Unable to assess Univers ity of SARS-CoV-2 (event) [facility] Alcohol Comment 60-90 days Universit y of sober, [facility] History SDAR [facility]-Med [facility] History of Social 2023-06-21 2023-06-21 Univers ity of function 00:00:00 00:00:00 [facility] Cigarettes smoked 2023-06-18 2023-06-18 Univers ity of current (pack per 00:00:00 00:00:00 [place] [facility] ) - Reported Branch Cigarette 2023-06-18 2023-06-18 University of pack-years 00:00:00 00:00:00 [facility] Tobacco use and 2023-01-22 2023-01-[address] Denae kes exposure 00:00:00 00:00:00 tobacco non-user Medical Center Alcohol intake 2023-01-22 2023-01-22 [facility] of alcohol Medical Center (finding) History [facility] 2023-01-22 2023-01-[address] [facility] Transport Med 00:00:00 00:00:[address] [facility] 2023-01-22 2023-01-[address] [facility] Housing Unable to 00:00:00 00:00:00 Medical Center Pay History [facility] 2023-01-22 2023-01-[address] [facility] Places 00:00:00 00:00:00 Medical Ce nter Lived History [facility] 2023-01-22 2023-01-[address] [facility] Housing Homeless 00:00:00 00:00:00 Medical Center Last Year History of tobacco 2015-07-08 Chews Tobacco Uni versity of use 00:00:00 [facility] Sex Assigned At [address] [facility] 00:00:00 00:00:00 Medical Center Smoking Status Start Date Stop Date Source Occasional tobacco 2023-06-18 00:00:00 Universit y of [place] smoker [facility] Ex-smoker 2023-03-01 00:00:00 2023-03-01 University o f [place] 00:00:00 Medical Branch Smokes tobacco daily 2023-01-22 00:00:00 [facility] Medications Ordered Filled Start Stop Current Ordering Indication Dosage Frequency Signature Comments Components Source Medication Medication Date Date Medication? Clinician (SIG) Name Name NIFEdipine 2022-09 Yes [id number] 30mg Take 1 U nivers ER 30 mg 0-27 tablet by ity of tablet 00:00: mouth in [place] 00 the morning Branch and 1 tablet in the evening. NIFEdipine 2022-09 Yes [id number] 60mg Take 1 U nivers ER 60 mg 0-05 tablet by ity of tablet 00:00: mouth in [place] [address] the morning. Branch doxepin 10 2022-09 Yes [id number] 10mg Take 1 Univers mg capsule 0-05 capsule by ity of 00:00: mouth at [place] [address] bedtime. Medical Branch SERTraline 2022-09 Yes [id number] 25mg Take 1 Univers 25 mg 0-05 tablet by ity of tablet 00:00: mouth in [place] the morning. Branch carvediloL 2022-09 Yes [id number] 25mg Take 1 U nivers 25 mg 0-05 tablet by ity of tablet 00:00: mouth in [place] the morning Branch and 1 tablet in the evening. Take with meals. NIFEdipine 2022-09 Yes [id number] 60mg Take 1 U nivers ER 60 mg 0-05 tablet by ity of tablet 00:00: mouth in [place] 00 the morning. Branch doxepin 10 2022-09 Yes [id number] 10mg Take 1 Univers mg capsule 0-05 capsule by ity of 00:00: mouth at [place] [address] bedtime. Medical Branch SERTraline 2022-09 Yes [id number] 25mg Take 1 Univers 25 mg 0-05 tablet by ity of tablet 00:00: mouth in [place] 00 the morning. Branch carvediloL 2022-09 Yes [id number] 25mg Take 1 U nivers 25 mg 0-05 tablet by ity of tablet 00:00: mouth in [place] [address] the Medical morning Branch and 1 tablet in the evening. Take with meals. NIFEdipine 2022-09 Yes [id number] 60mg Take 1 U nivers ER 60 mg 0-05 tablet by ity of tablet 00:00: mouth in [place] the morning. Branch doxepin 10 2022-09 Yes [id number] 10mg Take 1 Univers mg capsule 0-05 capsule by ity of 00:00: mouth at [place] [address] bedtime. Medical Branch SERTraline 2022-09 Yes [id number] 25mg Take 1 Univers 25 mg 0-05 tablet by ity of tablet 00:00: mouth in [place] the morning. Branch carvediloL 2022-09 Yes [id number] 25mg Take 1 U nivers 25 mg 0-05 tablet by ity of tablet 00:00: mouth in [place] the morning Branch and 1 tablet in the evening. Take with meals. NIFEdipine 2022-09 Yes [id number] 60mg Take 1 U nivers ER 60 mg 0-05 tablet by ity of tablet 00:00: mouth in [place] the morning. Branch doxepin 10 2022-09 Yes [id number] 10mg Take 1 Univers mg capsule 0-05 capsule by ity of 00:00: mouth at [place] [address] bedtime. Medical Branch SERTraline 2022-09 Yes [id number] 25mg Take 1 Univers 25 mg 0-05 tablet by ity of tablet 00:00: mouth in [place] the morning. Branch carvediloL 2022-09 Yes [id number] 25mg Take 1 U nivers 25 mg 0-05 tablet by ity of tablet 00:00: mouth in [place] the morning Branch and 1 tablet in the evening. Take with meals. NIFEdipine 2022-09 Yes [id number] 60mg Take 1 U nivers ER 60 mg 0-05 tablet by ity of tablet 00:00: mouth in [place] the morning. Branch doxepin 10 2022-09 Yes [id number] 10mg Take 1 Univers mg capsule 0-05 capsule by ity of 00:00: mouth at [place] [address] bedtime. Medical Branch SERTraline 2022-09 Yes [id number] 25mg Take 1 Univers 25 mg 0-05 tablet by ity of tablet 00:00: mouth in [place] the morning. Branch carvediloL 2022-09 Yes [id number] 25mg Take 1 U nivers 25 mg 0-05 tablet by ity of tablet 00:00: mouth in [place] the morning Branch and 1 tablet in the evening. Take with meals. NIFEdipine 2022-09 Yes [id number] 60mg Take 1 U nivers ER 60 mg 0-05 tablet by ity of tablet 00:00: mouth in [place] the Medical morning. Branch doxepin 10 2022-09 Yes [id number] 10mg Take 1 Univers mg capsule 0-05 capsule by ity of 00:00: mouth at [place] [address] bedtime. Medical Branch SERTraline 2022-09 Yes [id number] 25mg Take 1 Univers 25 mg 0-05 tablet by ity of tablet 00:00: mouth in [place] the Medical morning. Branch carvediloL 2022-09 Yes [id number] 25mg Take 1 U nivers 25 mg 0-05 tablet by ity of tablet 00:00: mouth in [place] the Medical morning Branch and 1 tablet in the evening. Take with meals. NIFEdipine 2022-09 Yes [id number] 60mg Take 1 U nivers ER 60 mg 0-05 tablet by ity of tablet 00:00: mouth in [place] the morning. Branch doxepin 10 2022-09 Yes [id number] 10mg Take 1 Univers mg capsule 0-05 capsule by ity of 00:00: mouth at [place] [address] bedtime. Medical Branch SERTraline 2022-09 Yes [id number] 25mg Take 1 Univers 25 mg 0-05 tablet by ity of tablet 00:00: mouth in [place] the morning. Branch carvediloL 2022-09 Yes [id number] 25mg Take 1 U nivers 25 mg 0-05 tablet by ity of tablet 00:00: mouth in [place] the morning Branch and 1 tablet in the evening. Take with meals. NIFEdipine 2022-09 Yes [id number] 60mg Take 1 U nivers ER 60 mg 0-05 tablet by ity of tablet 00:00: mouth in [place] 00 the Medical morning. Branch doxepin 10 2022-09 Yes [id number] 10mg Take 1 Univers mg capsule 0-05 capsule by ity of 00:00: mouth at [place] [address] bedtime. Medical Branch SERTraline 2022-09 Yes [id number] 25mg Take 1 Univers 25 mg 0-05 tablet by ity of tablet 00:00: mouth in [place] 00 the Medical morning. Branch carvediloL 2022-09 Yes [id number] 25mg Take 1 U nivers 25 mg 0-05 tablet by ity of tablet 00:00: mouth in [place] the morning Branch and 1 tablet in the evening. Take with meals. NIFEdipine 2022-09 Yes [id number] 60mg Take 1 U nivers ER 60 mg 0-05 tablet by ity of tablet 00:00: mouth in [place] the morning. Branch doxepin 10 2022-09 Yes [id number] 10mg Take 1 Univers mg capsule 0-05 capsule by ity of 00:00: mouth at [place] [address] bedtime. Medical Branch SERTraline 2022-09 Yes [id number] 25mg Take 1 Univers 25 mg 0-05 tablet by ity of tablet 00:00: mouth in [place] the morning. Branch carvediloL 2022-09 Yes [id number] 25mg Take 1 U nivers 25 mg 0-05 tablet by ity of tablet 00:00: mouth in [place] the morning Branch and 1 tablet in the evening. Take with meals. NIFEdipine 2022-09 Yes [id number] 60mg Take 1 U nivers ER 60 mg 0-05 tablet by ity of tablet 00:00: mouth in [place] the morning. Branch doxepin 2022-09 Yes [id number] 10mg Take 1 Univers mg capsule 0-05 capsule by ity of 00:00: mouth at [place] [address] bedtime. Medical Branch SERTraline 2022-09 Yes [id number] 25mg Take 1 Univers 25 mg 0-05 tablet by ity of tablet 00:00: mouth in [place] the morning. Branch carvediloL 2022-09 Yes [id number] 25mg Take 1 U nivers 25 mg 0-05 tablet by ity of tablet 00:00: mouth in [place] the morning Branch and 1 tablet in the evening. Take with meals. NIFEdipine 2022-09 Yes [id number] 60mg Take 1 U nivers ER 60 mg 0-05 tablet by ity of tablet 00:00: mouth in [place] the morning. Branch doxepin 10 2022-09 Yes [id number] 10mg Take 1 Univers mg capsule 0-05 capsule by ity of 00:00: mouth at [place] [address] bedtime. Medical Branch SERTraline 2022-09 Yes [id number] 25mg Take 1 Univers 25 mg 0-05 tablet by ity of tablet 00:00: mouth in [place] 00 the Medical morning. Branch carvediloL 2022-09 Yes [id number] 25mg Take 1 U nivers 25 mg 0-05 tablet by ity of tablet 00:00: mouth in [place] the morning Branch and 1 tablet in the evening. Take with meals. doxepin 10 2022-09 Yes [id number] 10mg Take 1 Univers mg capsule 0-05 capsule by ity of 00:00: mouth at [place] [address] bedtime. Medical Branch SERTraline 2022-09 Yes [id number] 25mg Take 1 Univers 25 mg 0-05 tablet by ity of tablet 00:00: mouth in [place] [address] the morning. Branch carvediloL 2022-09 Yes [id number] 25mg Take 1 U nivers 25 mg 0-05 tablet by ity of tablet 00:00: mouth in [place] the morning Branch and 1 tablet in the evening. Take with meals. NIFEdipine 2022-09- No [id number] 60mg Take 1 Univers ER 60 mg 0-05 10-27 tablet by ity o f tablet 00:00: 00:00 mouth in [place] 00 :00 the Medical morning. Branch CARVEDILOL 0 Yes [id number] TAKE ONE Univers 25 mg 9-29 (1) ity of tablet 00:00: TABLET(S) [place] BY MOUTH Medical TWICE A Branch DAY WITH MEALS. CARVEDILOL 0 Yes [id number] TAKE ONE Univers 25 mg 9-29 (1) ity of tablet 00:00: TABLET(S) [place] BY MOUTH Medical TWICE A Branch DAY WITH MEALS. CARVEDILOL 2022-0 Yes [id number] TAKE ONE Univers 25 mg 9-29 (1) ity of tablet 00:00: TABLET(S) [place] BY MOUTH Medical TWICE A Branch DAY WITH MEALS. CARVEDILOL 2022-0 Yes [id number] TAKE ONE Univers 25 mg 9-29 (1) ity of tablet 00:00: TABLET(S) [place] BY MOUTH Medical TWICE A Branch DAY WITH MEALS. CARVEDILOL 2022-0 Yes [id number] TAKE ONE Univers 25 mg 9-29 (1) ity of tablet 00:00: TABLET(S) [place] BY MOUTH Medical TWICE A Branch DAY WITH MEALS. CARVEDILOL 2022-0 Yes [id number] TAKE ONE Univers 25 mg 9-29 (1) ity of tablet 00:00: TABLET(S) [place] 00 BY MOUTH Medical TWICE A Branch DAY WITH MEALS. CARVEDILOL 2022-0 Yes [id number] TAKE ONE Univers 25 mg 9-29 (1) ity of tablet 00:00: TABLET(S) [place] 00 BY MOUTH Medical TWICE A Branch DAY WITH MEALS. CARVEDILOL 2022-0 Yes [id number] TAKE ONE Univers 25 mg 9-29 (1) ity of tablet 00:00: TABLET(S) [place] 00 BY MOUTH Medical TWICE A Branch DAY WITH MEALS. CARVEDILOL 2022-0 3- No [id number] TAKE ONE Univers 25 mg 9-29 10-05 (1) ity of tablet 00:00: 00:00 TABLET(S) [place] 00 :00 BY MOUTH Medical TWICE A Branch DAY WITH MEALS. CARVEDILOL 2022-0 3- No [id number] TAKE ONE Univers 25 mg 9-29 10-05 (1) ity of tablet 00:00: 00:00 TABLET(S) [place] 00 :00 BY MOUTH Medical TWICE A Branch DAY WITH MEALS. NIFEdipine 0 2022- Yes [id number] 90mg Take 1 Univers ER 90 mg 9-24 10-25 tablet by ity o f tablet 00:00: 04:59 mouth in [place] 00 :00 the Medical morning Branch for 30 days. NIFEdipine 2022-0 2022- Yes [id number] 90mg Take 1 Univers ER 90 mg 9-24 10-25 tablet by ity o f tablet 00:00: 04:59 mouth in [place] 00 :00 the Medical morning Branch for 30 days. NIFEdipine 2022-0 2022- Yes [id number] 90mg Take 1 Univers ER 90 mg 9-24 10-25 tablet by ity o f tablet 00:00: 04:59 mouth in [place] 00 :00 the Medical morning Branch for 30 days. NIFEdipine 2022-0 2022- Yes [id number] 90mg Take 1 Univers ER 90 mg 9-24 10-25 tablet by ity o f tablet 00:00: 04:59 mouth in [place] 00 :00 the Medical morning Branch for 30 days. NIFEdipine 2022-0 2022- Yes [id number] 90mg Take 1 Univers ER 90 mg 9-24 10-25 tablet by ity o f tablet 00:00: 04:59 mouth in [place] 00 :00 the Medical morning Branch for 30 days. NIFEdipine 2022- Yes [id number] 90mg Take 1 Univers ER 90 mg 9-24 10-25 tablet by ity o f tablet 00:00: 04:59 mouth in [place] 00 :00 the Medical morning Branch for 30 days. NIFEdipine 2022- Yes [id number] 90mg Take 1 Univers ER 90 mg 9-24 10-25 tablet by ity o f tablet 00:00: 04:59 mouth in [place] 00 :00 the Medical morning Branch for 30 days. NIFEdipine 2022- Yes [id number] 90mg Take 1 Univers ER 90 mg 9-24 10-25 tablet by ity o f tablet 00:00: 04:59 mouth in [place] 00 :00 the Medical morning Branch for 30 days. NIFEdipine 2022- Yes [id number] 90mg Take 1 Univers ER 90 mg 9-24 10-25 tablet by ity o f tablet 00:00: 04:59 mouth in [place] 00 :00 the Medical morning Branch for 30 days. NIFEdipine 2022- Yes [id number] 90mg Take 1 Univers ER 90 mg 9-24 10-25 tablet by ity o f tablet 00:00: 04:59 mouth in [place] 00 :00 the Medical morning Branch for 30 days. NIFEdipine 2022- Yes [id number] 90mg Take 1 Univers ER 90 mg 9-24 10-25 tablet by ity o f tablet 00:00: 04:59 mouth in [place] 00 :00 the Medical morning Branch for 30 days. NIFEdipine 2022- Yes [id number] 90mg Take 1 Univers ER 90 mg 9-24 10-25 tablet by ity o f tablet 00:00: 04:59 mouth in [place] 00 :00 the Medical morning Branch for 30 days. NIFEdipine 2022-0 2022- Yes [id number] 90mg Take 1 Univers ER 90 mg 9-24 10-25 tablet by ity o f tablet 00:00: 04:59 mouth in [place] 00 :00 the Medical morning Branch for 30 days. NIFEdipine 0 2022- No [id number] 90mg Take 1 Univers ER 90 mg 9-24 10-05 tablet by ity o f tablet 00:00: 00:00 mouth in [place] 00 :00 the Medical morning Branch for 30 days. NIFEdipine 2022-0 2022- No [id number] 90mg Take 1 Univers ER 90 mg 06-2305 tablet by ity o f tablet 00:00: 00:00 mouth in [place] 00 :00 the [facility] Branch for 30 days. levoFLOXaci 2022- Yes [id number] 250mg Take 1 Univers n 250 mg 06-23 tablet by ity o f tablet 00:00: 04:59 mouth [place] 00 :00 every 24 Medical ([facility] Branch ur) hours for 5 days. levoFLOXaci 2022- Yes [id number] 250mg Take 1 Univers n 250 mg 06-23 tablet by ity o f tablet 00:00: 04:59 mouth [place] 00 :00 every 24 Medical ([facility] Branch ur) hours for 5 days. levoFLOXaci 2022- Yes [id number] 250mg Take 1 Univers n 250 mg 06-23 tablet by ity o f tablet 00:00: 04:59 mouth [place] 00 :00 every 24 Medical ([facility] Branch ur) hours for 5 days. levoFLOXaci 2022- Yes [id number] 250mg Take 1 Univers n 250 mg 06-23 tablet by ity o f tablet 00:00: 04:59 mouth [place] 00 :00 every 24 Medical ([facility] Branch ur) hours for 5 days. levoFLOXaci 2022- Yes [id number] 250mg Take 1 Univers n 250 mg 06-23 tablet by ity o f tablet 00:00: 04:59 mouth [place] 00 :00 every 24 Medical ([facility] ur) hours for 5 days. levoFLOXaci 2022- Yes [id number] 250mg Take 1 Univers n 250 mg 06-23 tablet by ity o f tablet 00:00: 04:59 mouth [place] 00 :00 every 24 Medical ([facility] ur) hours for 5 days. levoFLOXaci 2022- Yes 250mg 250 mg, U nivers n 06-22 Oral, Q24H ity of (LEVAQUIN) 19:00: 18:59 ABX, 5 [place] 00 :00 doses, Medical mg First dose Branch on 06/22/23 at 1400, Last dose on Sat06/26/23 at 1400, ERNESTINE
Re ason for Anti-Infec tive: Documented Infection< br>Documen yoli Infection Site: Urine
D uration of Therapy: 7 days levoFLOXaci 2022-0 2022- No 250mg 250 mg, U nivers n 06-22 09-24 Oral, Q24H ity of (LEVAQUIN) 19:00: 01:56 ABX, 5 [place] 00 :21 doses, Medical mg First dose Branch on [facility] 06/22/23 at 1400, Last dose on Sat06/26/23 at 1400, ERNESTINE
Re ason for Anti-Infec tive: Documented Infection< br>Documen yoli Infection Site: Urine
D uration of Therapy: 7 days NIFEdipine Yes 90mg 90 mg, Unive rs ER tablet 06-22 Oral, ity of 90 mg 14:00: DAILY, [place] 00 First dose Medical (after Branch last modificati on) on [facility] 06/22/23 at 0900, Until Discontinu ed torsemide Yes 20mg 20 mg, Univer s (SOAANZ) 06-22 Oral, ity of tablet 20 14:00: DAILY, [place] mg 00 First dose Medical on [facility] Branch 06/22/23 at 0900, Until Discontinu ed, Routine tamsulosin Yes .4mg 0.4 mg, Univ ers (FLOMAX) 06-22 Oral, ity of capsule 0.4 14:00: DAILY, [place] 00 First dose Medical on [facility] Branch 06/22/23 at 0900, Until Discontinu ed, Routine SERTraline Yes 25mg 25 mg, Unive rs (ZOLOFT) 06-22 Oral, ity of tablet 25 14:00: DAILY, [place] mg 00 First dose Medical on [facility] Branch 06/22/23 at 0900, Until Discontinu ed, Routine sennosides Yes 8.6mg 8.6 mg, Uni vers (SENOKOT) 06-22 Oral, ity of tablet 8.6 14:00: DAILY, [place] mg 00 First dose Medical on [facility] Branch 06/22/23 at 0900, Until Discontinu ed, Routine gabapentin Yes 300mg 300 mg, Uni vers (NEURONTIN) 06-22 Oral, ity of capsule 300 14:00: DAILY, [place] 00 First dose Medical on [facility] Branch 06/22/23 at 0900, Until Discontinu ed, Routine NIFEdipine 2022- No 90mg 90 mg, Univ ers ER tablet 06-22 Oral, ity of 90 mg 14:00: 01:56 DAILY, [place] 00 :21 First dose Medical (after Branch last modificati on) on [facility] 06/22/23 at 0900, Until Discontinu ed torsemide 2022- No 20mg 20 mg, Unive rs (SOAANZ) 06-22 Oral, ity of tablet 20 14:00: 01:56 DAILY, [place] mg 00 :21 First dose Medical on [facility] 06/22/23 at 0900, Until Discontinu ed, Routine tamsulosin No .4mg 0.4 mg, Uni vers (FLOMAX) 06-22 Oral, ity of capsule 0.4 14:00: 01:56 DAILY, [place] mg 00 :21 First dose Medical on [facility] 06/22/23 at 0900, Until Discontinu ed, Routine SERTraline 2022- No 25mg 25 mg, Univ ers (ZOLOFT) 06-22 Oral, ity of tablet 25 14:00: 01:56 DAILY, [place] mg 00 :21 First dose Medical on [facility] 06/22/23 at 0900, Until Discontinu ed, Routine sennosides 2022- No 8.6mg 8.6 mg, Un javed (SENOKOT) 06-22 Oral, ity of tablet 8.6 14:00: 01:56 DAILY, [place] mg 00 :21 First dose Medical on [facility] Branch 06/22/23 at 0900, Until Discontinu ed, Routine gabapentin 2022- No 300mg 300 mg, Un javed (NEURONTIN) 06-22 Oral, ity of capsule 300 14:00: 01:56 DAILY, [place] mg 00 :21 First dose Medical on [facility] 06/22/23 at 0900, Until Discontinu ed, Routine benzocaine- Yes 1{lozen 1 Lozenge, Univers menthoL 9- ge} Oral, ity of (CEPACOL 13:55: Q4HPRN, [place] SORE THROAT 47 Starting Medi eric (SHAUN-MEN)) on [facility] lozenge 1 06/22/23 at [place] 0855, Until Discontinu ed, Routine, Sore throat benzocaine- 2023-0 2023- No 1{lozen 1 Lozenge, Univers menthoL 06-22-24 ge} Oral, ity of (CEPACOL 13:55: 01:56 Q4HPRN, [place] SORE THROAT 47 :21 Starting Medi eric (SHAUN-MEN)) on [facility] lozenge 1 06/22/23 at Loz[place] 0855, Until [facility] 06/22/23 at 2055, Routine, Sore throat doxepin 2022-0 Yes 10mg 10 mg, Univers (SINEQUAN) - Oral, QHS, ity of capsule 10 02:00: First dose [place] 00 on [facility] 06/21/23 at [place] 2100, Until Discontinu ed, Routine doxepin 2022-0 2022- No 10mg 10 mg, Univers (SINEQUAN) 06-22- Oral, QHS, it y of capsule 10 02:00: 01:56 First dose [place] mg 00 :21 on [facility] 06/21/23 at [place] 2100, Until Discontinu ed, Routine acetaminoph 2023-0 Yes [id number] 650mg Take 1 Univers en (TYLENOL 9-23 tablet by ity of 8 HOUR) 650 00:00: mouth [place] mg CR 00 every 6 Medical tablet (six) Branch hours as needed for Pain (Alternate with ibuprofen) . aspirin 81 2022-0 Yes [id number] 81mg Take 1 U nivers mg chewable 9-23 tablet by ity of tablet 00:00: mouth in [place] 00 the Medical morning. Branch DO NOT TAKE UNTIL YOU FOLLOW UP WITH UROLOGY AND ASK THEM IF SAFE TO RESUME acetaminoph 2023-0 Yes [id number] 650mg Take 1 Univers en (TYLENOL 9-23 tablet by ity of 8 HOUR) 650 00:00: mouth [place] mg CR 00 every 6 Medical tablet (six) Branch hours as needed for Pain (Alternate with ibuprofen) . aspirin 81 2023-0 Yes [id number] 81mg Take 1 U nivers mg chewable 9-23 tablet by ity of tablet 00:00: mouth in [place] 00 the Medical morning. Branch DO NOT TAKE UNTIL YOU FOLLOW UP WITH UROLOGY AND ASK THEM IF SAFE TO RESUME acetaminoph 2023-0 Yes [id number] 650mg Take 1 Univers en (TYLENOL 9-23 tablet by ity of 8 HOUR) 650 00:00: mouth [place] mg CR 00 every 6 Medical tablet (six) Branch hours as needed for Pain (Alternate with ibuprofen) . aspirin 81 2022-0 Yes [id number] 81mg Take 1 U nivers mg chewable 9-23 tablet by ity of tablet 00:00: mouth in [place] 00 the Medical morning. Branch DO NOT TAKE UNTIL YOU FOLLOW UP WITH UROLOGY AND ASK THEM IF SAFE TO RESUME acetaminoph 2023-0 Yes [id number] 650mg Take 1 Univers en (TYLENOL 9-23 tablet by ity of 8 HOUR) 650 00:00: mouth [place] mg CR 00 every 6 Medical tablet (six) Branch hours as needed for Pain (Alternate with ibuprofen) . aspirin 81 2022-0 Yes [id number] 81mg Take 1 U nivers mg chewable 9-23 tablet by ity of tablet 00:00: mouth in [place] 00 the Medical morning. Branch DO NOT TAKE UNTIL YOU FOLLOW UP WITH UROLOGY AND ASK THEM IF SAFE TO RESUME acetaminoph 2023-0 Yes [id number] 650mg Take 1 Univers en (TYLENOL 9-23 tablet by ity of 8 HOUR) 650 00:00: mouth [place] mg CR 00 every 6 Medical tablet (six) Branch hours as needed for Pain (Alternate with ibuprofen) . aspirin 81 2022-0 Yes [id number] 81mg Take 1 U nivers mg chewable 9-23 tablet by ity of tablet 00:00: mouth in [place] 00 the Medical morning. Branch DO NOT TAKE UNTIL YOU FOLLOW UP WITH UROLOGY AND ASK THEM IF SAFE TO RESUME acetaminoph 2023-0 Yes [id number] 650mg Take 1 Univers en (TYLENOL 9-23 tablet by ity of 8 HOUR) 650 00:00: mouth [place] mg CR 00 every 6 Medical tablet (six) Branch hours as needed for Pain (Alternate with ibuprofen) . aspirin 81 2022-0 Yes [id number] 81mg Take 1 U nivers mg chewable 9-23 tablet by ity of tablet 00:00: mouth in [place] 00 the Medical morning. Branch DO NOT TAKE UNTIL YOU FOLLOW UP WITH UROLOGY AND ASK THEM IF SAFE TO RESUME acetaminoph 2023-0 Yes [id number] 650mg Take 1 Univers en (TYLENOL 9-23 tablet by ity of 8 HOUR) 650 00:00: mouth [place] mg CR 00 every 6 Medical tablet (six) Branch hours as needed for Pain (Alternate with ibuprofen) . aspirin 81 2023-0 Yes [id number] 81mg Take 1 U nivers mg chewable 9-23 tablet by ity of tablet 00:00: mouth in [place] 00 the Medical morning. Branch DO NOT TAKE UNTIL YOU FOLLOW UP WITH UROLOGY AND ASK THEM IF SAFE TO RESUME acetaminoph 2023-0 Yes [id number] 650mg Take 1 Univers en (TYLENOL 9-23 tablet by ity of 8 HOUR) 650 00:00: mouth [place] mg CR 00 every 6 Medical tablet (six) Branch hours as needed for Pain (Alternate with ibuprofen) . aspirin 81 3-0 Yes [id number] 81mg Take 1 U nivers mg chewable 9-23 tablet by ity of tablet 00:00: mouth in [place] 00 the Medical morning. Branch DO NOT TAKE UNTIL YOU FOLLOW UP WITH UROLOGY AND ASK THEM IF SAFE TO RESUME acetaminoph 2023-0 Yes [id number] 650mg Take 1 Univers en (TYLENOL 9-23 tablet by ity of 8 HOUR) 650 00:00: mouth [place] mg CR 00 every 6 Medical tablet (six) Branch hours as needed for Pain (Alternate with ibuprofen) . aspirin 81 2023-0 Yes [id number] 81mg Take 1 U nivers mg chewable 9-23 tablet by ity of tablet 00:00: mouth in [place] 00 the Medical morning. Branch DO NOT TAKE UNTIL YOU FOLLOW UP WITH UROLOGY AND ASK THEM IF SAFE TO RESUME acetaminoph 2023-0 Yes [id number] 650mg Take 1 Univers en (TYLENOL 9-23 tablet by ity of 8 HOUR) 650 00:00: mouth [place] mg CR 00 every 6 Medical tablet (six) Branch hours as needed for Pain (Alternate with ibuprofen) . aspirin 81 2023-0 Yes [id number] 81mg Take 1 U nivers mg chewable 9-23 tablet by ity of tablet 00:00: mouth in [place] 00 the Medical morning. Branch DO NOT TAKE UNTIL YOU FOLLOW UP WITH UROLOGY AND ASK THEM IF SAFE TO RESUME acetaminoph 2023-0 Yes [id number] 650mg Take 1 Univers en (TYLENOL 9-23 tablet by ity of 8 HOUR) 650 00:00: mouth [place] mg CR 00 every 6 Medical tablet (six) Branch hours as needed for Pain (Alternate with ibuprofen) . aspirin 81 2023-0 Yes [id number] 81mg Take 1 U nivers mg chewable 9-23 tablet by ity of tablet 00:00: mouth in [place] 00 the Medical morning. Branch DO NOT TAKE UNTIL YOU FOLLOW UP WITH UROLOGY AND ASK THEM IF SAFE TO RESUME acetaminoph 2023-0 Yes [id number] 650mg Take 1 Univers en (TYLENOL 9-23 tablet by ity of 8 HOUR) 650 00:00: mouth [place] mg CR 00 every 6 Medical tablet (six) Branch hours as needed for Pain (Alternate with ibuprofen) . aspirin 81 2022-0 Yes [id number] 81mg Take 1 U nivers mg chewable 9-23 tablet by ity of tablet 00:00: mouth in [place] 00 the Medical morning. Branch DO NOT TAKE UNTIL YOU FOLLOW UP WITH UROLOGY AND ASK THEM IF SAFE TO RESUME acetaminoph 2023-0 Yes [id number] 650mg Take 1 Univers en (TYLENOL 9-23 tablet by ity of 8 HOUR) 650 00:00: mouth [place] mg CR 00 every 6 Medical tablet (six) Branch hours as needed for Pain (Alternate with ibuprofen) . aspirin 81 2023-0 Yes [id number] 81mg Take 1 U nivers mg chewable 9-23 tablet by ity of tablet 00:00: mouth in [place] 00 the Medical morning. Branch DO NOT TAKE UNTIL YOU FOLLOW UP WITH UROLOGY AND ASK THEM IF SAFE TO RESUME acetaminoph 2023-0 Yes [id number] 650mg Take 1 Univers en (TYLENOL 9-23 tablet by ity of 8 HOUR) 650 00:00: mouth [place] mg CR 00 every 6 Medical tablet (six) Branch hours as needed for Pain (Alternate with ibuprofen) . aspirin 81 2023-0 Yes [id number] 81mg Take 1 U nivers mg chewable 9-23 tablet by ity of tablet 00:00: mouth in [place] 00 the Medical morning. Branch DO NOT TAKE UNTIL YOU FOLLOW UP WITH UROLOGY AND ASK THEM IF SAFE TO RESUME acetaminoph 2023-0 Yes [id number] 650mg Take 1 Univers en (TYLENOL 9-23 tablet by ity of 8 HOUR) 650 00:00: mouth [place] mg CR 00 every 6 Medical tablet (six) Branch hours as needed for Pain (Alternate with ibuprofen) . aspirin 81 202-0 Yes [id number] 81mg Take 1 U nivers mg chewable 9-23 tablet by ity of tablet 00:00: mouth in [place] 00 the Medical morning. Branch DO NOT TAKE UNTIL YOU FOLLOW UP WITH UROLOGY AND ASK THEM IF SAFE TO RESUME acetaminoph 2023-0 Yes [id number] 650mg Take 1 Univers en (TYLENOL 9-23 tablet by ity of 8 HOUR) 650 00:00: mouth [place] mg CR 00 every 6 Medical tablet (six) Branch hours as needed for Pain (Alternate with ibuprofen) . aspirin 81 2022-0 Yes [id number] 81mg Take 1 U nivers mg chewable 9-23 tablet by ity of tablet 00:00: mouth in [place] 00 the Medical morning. Branch DO NOT TAKE UNTIL YOU FOLLOW UP WITH UROLOGY AND ASK THEM IF SAFE TO RESUME acetaminoph 2023-0 Yes [id number] 650mg Take 1 Univers en (TYLENOL 9-23 tablet by ity of 8 HOUR) 650 00:00: mouth [place] mg CR 00 every 6 Medical tablet (six) Branch hours as needed for Pain (Alternate with ibuprofen) . aspirin 81 2022-0 Yes [id number] 81mg Take 1 U nivers mg chewable 9-23 tablet by ity of tablet 00:00: mouth in [place] 00 the Medical morning. Branch DO NOT TAKE UNTIL YOU FOLLOW UP WITH UROLOGY AND ASK THEM IF SAFE TO RESUME acetaminoph 2023-0 Yes [id number] 650mg Take 1 Univers en (TYLENOL 9-23 tablet by ity of 8 HOUR) 650 00:00: mouth [place] mg CR 00 every 6 Medical tablet (six) Branch hours as needed for Pain (Alternate with ibuprofen) . aspirin 81 2023-0 Yes [id number] 81mg Take 1 U nivers mg chewable 9-23 tablet by ity of tablet 00:00: mouth in [place] 00 the Medical morning. Branch DO NOT TAKE UNTIL YOU FOLLOW UP WITH UROLOGY AND ASK THEM IF SAFE TO RESUME acetaminoph 2023-0 Yes [id number] 650mg Take 1 Univers en (TYLENOL 9-23 tablet by ity of 8 HOUR) 650 00:00: mouth [place] mg CR 00 every 6 Medical tablet (six) Branch hours as needed for Pain (Alternate with ibuprofen) . aspirin 81 202-0 Yes [id number] 81mg Take 1 U nivers mg chewable 9-23 tablet by ity of tablet 00:00: mouth in [place] 00 the Medical morning. Branch DO NOT TAKE UNTIL YOU FOLLOW UP WITH UROLOGY AND ASK THEM IF SAFE TO RESUME acetaminoph 2023-0 Yes [id number] 650mg Take 1 Univers en (TYLENOL 9-23 tablet by ity of 8 HOUR) 650 00:00: mouth [place] mg CR 00 every 6 Medical tablet (six) Branch hours as needed for Pain (Alternate with ibuprofen) . aspirin 81 2022-0 Yes [id number] 81mg Take 1 U nivers mg chewable 9-23 tablet by ity of tablet 00:00: mouth in [place] 00 the Medical morning. Branch DO NOT TAKE UNTIL YOU FOLLOW UP WITH UROLOGY AND ASK THEM IF SAFE TO RESUME acetaminoph 2023-0 Yes [id number] 650mg Take 1 Univers en (TYLENOL 9-23 tablet by ity of 8 HOUR) 650 00:00: mouth [place] mg CR 00 every 6 Medical tablet (six) Branch hours as needed for Pain (Alternate with ibuprofen) . aspirin 81 2022-0 Yes [id number] 81mg Take 1 U nivers mg chewable 9-23 tablet by ity of tablet 00:00: mouth in [place] 00 the Medical morning. Branch DO NOT TAKE UNTIL YOU FOLLOW UP WITH UROLOGY AND ASK THEM IF SAFE TO RESUME acetaminoph 2023-0 Yes [id number] 650mg Take 1 Univers en (TYLENOL 9-23 tablet by ity of 8 HOUR) 650 00:00: mouth [place] mg CR 00 every 6 Medical tablet (six) Branch hours as needed for Pain (Alternate with ibuprofen) . aspirin 81 3-0 Yes [id number] 81mg Take 1 U nivers mg chewable 9-23 tablet by ity of tablet 00:00: mouth in [place] 00 the Medical morning. Branch DO NOT TAKE UNTIL YOU FOLLOW UP WITH UROLOGY AND ASK THEM IF SAFE TO RESUME acetaminoph 2023-0 Yes [id number] 650mg Take 1 Univers en (TYLENOL 9-23 tablet by ity of 8 HOUR) 650 00:00: mouth [place] mg CR 00 every 6 Medical tablet (six) Branch hours as needed for Pain (Alternate with ibuprofen) . aspirin 81 2023-0 Yes [id number] 81mg Take 1 U nivers mg chewable 9-23 tablet by ity of tablet 00:00: mouth in [place] 00 the Medical morning. Branch DO NOT TAKE UNTIL YOU FOLLOW UP WITH UROLOGY AND ASK THEM IF SAFE TO RESUME acetaminoph 2023-0 Yes [id number] 650mg Take 1 Univers en (TYLENOL 9-23 tablet by ity of 8 HOUR) 650 00:00: mouth [place] mg CR 00 every 6 Medical tablet (six) Branch hours as needed for Pain (Alternate with ibuprofen) . aspirin 81 2022-0 Yes [id number] 81mg Take 1 U nivers mg chewable 9-23 tablet by ity of tablet 00:00: mouth in [place] 00 the Medical morning. Branch DO NOT TAKE UNTIL YOU FOLLOW UP WITH UROLOGY AND ASK THEM IF SAFE TO RESUME acetaminoph 2023-0 Yes [id number] 650mg Take 1 Univers en (TYLENOL 9-23 tablet by ity of 8 HOUR) 650 00:00: mouth [place] mg CR 00 every 6 Medical tablet (six) Branch hours as needed for Pain (Alternate with ibuprofen) . aspirin 81 2022-0 Yes [id number] 81mg Take 1 U nivers mg chewable 9-23 tablet by ity of tablet 00:00: mouth in [place] 00 the Medical morning. Branch DO NOT TAKE UNTIL YOU FOLLOW UP WITH UROLOGY AND ASK THEM IF SAFE TO RESUME acetaminoph 2023-0 Yes [id number] 650mg Take 1 Univers en (TYLENOL 9-23 tablet by ity of 8 HOUR) 650 00:00: mouth [place] mg CR 00 every 6 Medical tablet (six) Branch hours as needed for Pain (Alternate with ibuprofen) . aspirin 81 2022-0 Yes [id number] 81mg Take 1 U nivers mg chewable 9-23 tablet by ity of tablet 00:00: mouth in [place] 00 the Medical morning. Branch DO NOT TAKE UNTIL YOU FOLLOW UP WITH UROLOGY AND ASK THEM IF SAFE TO RESUME gabapentin 2023-0 2023- Yes [id number] 300mg Take 1 Univers 300 mg 9-23 10-01 capsule by ity of capsule 00:00: 04:59 mouth as [place] 00 :00 needed for Medical Pain Branch (scale 4-6) (once daily as needed for pain) for up to 7 days. gabapentin 2022- Yes [id number] 300mg Take 1 Univers 300 mg 06-22 capsule by ity of capsule 00:00: 04:59 mouth as [place] 00 :00 needed for Medical Pain Branch (scale 4-6) (once daily as needed for pain) for up to 7 days. gabapentin 2022- Yes [id number] 300mg Take 1 Univers 300 mg 06-22 capsule by ity of capsule 00:00: 04:59 mouth as [place] 00 :00 needed for Medical Pain Branch (scale 4-6) (once daily as needed for pain) for up to 7 days. gabapentin 2022- Yes [id number] 300mg Take 1 Univers 300 mg 06-22 capsule by ity of capsule 00:00: 04:59 mouth as [place] 00 :00 needed for Medical Pain Branch (scale 4-6) (once daily as needed for pain) for up to 7 days. gabapentin 2022- Yes [id number] 300mg Take 1 Univers 300 mg 06-22 capsule by ity of capsule 00:00: 04:59 mouth as [place] 00 :00 needed for Medical Pain Branch (scale 4-6) (once daily as needed for pain) for up to 7 days. gabapentin 2022- Yes [id number] 300mg Take 1 Univers 300 mg 06-22 capsule by ity of capsule 00:00: 04:59 mouth as [place] 00 :00 needed for Medical Pain Branch (scale 4-6) (once daily as needed for pain) for up to 7 days. oxyBUTYnin 2022- Yes [id number] 5mg Take 1 Univers chloride 5 06-22 tablet by ity of mg tablet 00:00: 04:59 mouth 3 [place] 00 :00 (three) Medical times Branch daily as needed for Bladder spasms for up to 5 days. oxyBUTYnin 2022- Yes [id number] 5mg Take 1 Univers chloride 5 06-22 tablet by ity of mg tablet 00:00: 04:59 mouth 3 [place] 00 :00 (three) Medical times Branch daily as needed for Bladder spasms for up to 5 days. oxyBUTYnin 2022- Yes [id number] 5mg Take 1 Univers chloride 5 06-22 tablet by ity of mg tablet 00:00: 04:59 mouth 3 [place] 00 :00 (three) Medical times Branch daily as needed for Bladder spasms for up to 5 days. oxyBUTYnin 2022- Yes [id number] 5mg Take 1 Univers chloride 5 06-22 tablet by ity of mg tablet 00:00: 04:59 mouth 3 [place] 00 :00 (three) Medical times Branch daily as needed for Bladder spasms for up to 5 days. oxyBUTYnin 2022- Yes [id number] 5mg Take 1 Univers chloride 5 06-22 tablet by ity of mg tablet 00:00: 04:59 mouth 3 [place] 00 :00 (three) Medical times Branch daily as needed for Bladder spasms for up to 5 days. benzocaine- 2022- Yes [id number] 1{lozen Take 1 Univers menthoL 06-22 09-27 ge} Lozenge by ity o f lozenge 00:00: 04:59 mouth [place] 00 :00 every 4 Medical (four) Branch hours as needed for Sore throat for up to 3 days. benzocaine- 2022- Yes [id number] 1{lozen Take 1 Univers menthoL 06-22 09-27 ge} Lozenge by ity o f lozenge 00:00: 04:59 mouth [place] 00 :00 every 4 Medical (four) Branch hours as needed for Sore throat for up to 3 days. benzocaine- 2022- Yes [id number] 1{lozen Take 1 Univers menthoL 06-22 09-27 ge} Lozenge by ity o f lozenge 00:00: 04:59 mouth [place] 00 :00 every 4 Medical (four) Branch hours as needed for Sore throat for up to 3 days. acetaminoph Yes 650mg 650 mg, Un javed en - Oral, Q6H, ity of (TYLENOL) 23:00: First dose [place] tablet 650 00 on Sat Medical mg 06/21/23 at Branch 1800, Until Discontinu ed, Routine acetaminoph 2022-2022- No 650mg 650 mg, U nivers en 06-21 Oral, Q6H, ity of (TYLENOL) 23:00: 01:56 First dose [place] tablet 650 00 :21 on Fri Medical mg 06/21/23 at Branch 1800, Until Discontinu ed, Routine carvediloL 2022-0 Yes 25mg 25 mg, Unive rs (COREG) 06-21 Oral, BID ity of tablet 25 22:00: MEALS, [place] mg 00 First dose Medical on Sat Branch 06/21/23 at 1700, Until Discontinu ed, Routine carvediloL 2022-0 2022- No 25mg 25 mg, Univ ers (COREG) 06-21 Oral, BID ity of tablet 25 22:00: 01:56 MEALS, [place] mg 00 :21 First dose Medical on Sat Branch 06/21/23 at 1700, Until Discontinu ed, Routine labetaloL 0 Yes 10mg 10 mg, Univer s (NORMODYNE) 06-21 Slow IV ity o f injection 21:52: Push, [place] 10 mg 17 Q4HPRN, Medical Starting Branch on Sat06/21/23 at 1652, Until Discontinu ed, Routine, SBP >180, DBP >100 labetaloL 0 2022- No 10mg 10 mg, Unive rs (NORMODYNE) 06-21 Slow IV ity of injection 21:52: 01:56 Push, [place] 10 mg 17 :21 Q4HPRN, Medical Starting Branch on Sat06/21/23 at 1652, Until 06/22/23 at 2056, Routine, SBP >180, DBP >100 ondansetron 2022-0 Yes 4mg 4 mg, Slow Univers (ZOFRAN 06-21 IV Push, ity of (PF)) 17:28: Q6HPRN, [place] injection 4 36 Starting Medi eric mg on Sat Branch 06/21/23 at 1228, Until Discontinu ed, Routine, Nausea and Vomiting (N/V) ondansetron 2022-0 2022- No 4mg 4 mg, Slow Univers (ZOFRAN 9-22 09-24 IV Push, ity of (PF)) 17:28: 01:56 Q6HPRN, [place] injection 4 36 :21 Starting Medi eric mg on Sat Branch 06/21/23 at 1228, Until 06/22/23 at 2055, Routine, Nausea and Vomiting (N/V) acetaminoph 2022-0 Yes 650mg 650 mg, Un javed en 06-21 Oral, ity of (TYLENOL) 17:28: Q6HPRN, [place] tablet 650 22 Starting Medic al mg on Sat Branch 06/21/23 at 1228, Until Discontinu ed, Routine, Pain (scale 1-3) acetaminoph 2022-0 202- No 650mg 650 mg, U nivers en 06-21 Oral, ity of (TYLENOL) 17:28: 01:56 Q6HPRN, [place] tablet 650 22 :21 Starting Medic al mg on Sat Branch 06/21/23 at 1228, Until 06/22/23 at 2055, Routine, Pain (scale 1-3) oxyBUTYnin 2022-0 Yes 5mg 5 mg, Univer s chloride 06-21 Oral, ity of (DITROPAN) 17:21: TIDPRN, [place] tablet 5 mg 11 Starting Medi eric on Sat Branch 06/21/23 at 1221, Until Discontinu ed, Routine, Bladder spasms oxyBUTYnin 2022-0 2022- No 5mg 5 mg, Unive rs chloride 06-21 Oral, ity of (DITROPAN) 17:21: 01:56 TIDPRN, [place] tablet 5 mg 11 :21 Starting Medi eric on Sat Branch 06/21/23 at 1221, Until 06/22/23 at 2055, Routine, Bladder spasms sodium 2022-0 202- No PRN, Univers chloride 06-21 Starting ity of 0.9 % 15:30: 17:55 on Sat [place] irrigation 00 :00 06/21/23 at Med ical solution 1030, Branch Until Sat06/21/23 at 1255, Intra-op lactated 3-0 2022- No 1000mL at 42 Unive rs ringers IV 06-21 mL/hr, ity of infusion 14:00: 19:00 1,000 mL, [place] 1,000 mL 00 :00 IV Medical Infusion, Branch ONCE, 1 dose, On Sat06/21/23 at 0900, Routine, DSU Pre-op lactated 2022-0 2022- No 1000mL at 42 Unive rs ringers IV 06-21 mL/hr, ity of infusion 14:00: 19:00 1,000 mL, [place] 1,000 mL 00 :00 IV Medical Infusion, Branch ONCE, 1 dose, On Sat06/21/23 at 0900, Routine, DSU Pre-op levoFLOXaci 2022-0 2022- Yes [id number] 750mg Take 1 Univers n 750 mg 06-20 tablet by ity o f tablet 00:00: 04:59 mouth [place] 00 :00 every 24 Medical (twenty-fo Branch ur) hours for 5 days. levoFLOXaci 2022-0 2022- Yes [id number] 750mg Take 1 Univers n 750 mg 06-20 tablet by ity o f tablet 00:00: 04:59 mouth [place] 00 :00 every 24 Medical (twenty-fo Branch ur) hours for 5 days. ciprofloxac 2022-0 2022- No [id number] 500mg Take 1 Univers in HCl 06-20 tablet by ity of (CIPRO) 500 00:00: 00:00 mouth [place] mg tablet 00 :00 every 12 Medica l (twelve) Branch hours for 5 days. nitroglycer 2022-0 Yes [id number] DISSOLVE Univers in 0.4 mg 06-06 ONE (1) ity of sublingual 00:00: TABLET(S) [place] tablet 00 BY MOUTH Medical UNDER THE Branch TONGUE ONCE EVERY 5 MINUTES NEEDED FOR CHEST PAIN. nitroglycer 3-0 Yes [id number] DISSOLVE Univers in 0.4 mg 06-06 ONE (1) ity of sublingual 00:00: TABLET(S) [place] tablet 00 BY MOUTH Medical UNDER THE Branch TONGUE ONCE EVERY 5 MINUTES NEEDED FOR CHEST PAIN. nitroglycer 3-0 Yes [id number] DISSOLVE Univers in 0.4 mg 06-06 ONE (1) ity of sublingual 00:00: TABLET(S) [place] tablet 00 BY MOUTH Medical UNDER THE Branch TONGUE ONCE EVERY 5 MINUTES NEEDED FOR CHEST PAIN. nitroglycer 2023-0 Yes [id number] DISSOLVE Univers in 0.4 mg 9-07 ONE (1) ity of sublingual 00:00: TABLET(S) [place] tablet 00 BY MOUTH Medical UNDER THE Branch TONGUE ONCE EVERY 5 MINUTES NEEDED FOR CHEST PAIN. nitroglycer 2023-0 Yes [id number] DISSOLVE Univers in 0.4 mg 9-07 ONE (1) ity of sublingual 00:00: TABLET(S) [place] tablet 00 BY MOUTH Medical UNDER THE Branch TONGUE ONCE EVERY 5 MINUTES NEEDED FOR CHEST PAIN. nitroglycer 2023-0 Yes [id number] DISSOLVE [facility] in 0.4 mg 9-07 ONE (1) ity of sublingual 00:00: TABLET(S) [place] tablet 00 BY MOUTH Medical UNDER THE Branch TONGUE ONCE EVERY 5 MINUTES NEEDED FOR CHEST PAIN. nitroglycer 2023-0 Yes [id number] DISSOLVE [facility] in 0.4 mg 9-07 ONE (1) ity of sublingual 00:00: TABLET(S) [place] tablet 00 BY MOUTH Medical UNDER THE Branch TONGUE ONCE EVERY 5 MINUTES NEEDED FOR CHEST PAIN. nitroglycer 2023-0 Yes [id number] DISSOLVE [facility] in 0.4 mg 9-07 ONE (1) ity of sublingual 00:00: TABLET(S) [place] tablet 00 BY MOUTH Medical UNDER THE Branch TONGUE ONCE EVERY 5 MINUTES NEEDED FOR CHEST PAIN. nitroglycer 2023-0 Yes [id number] DISSOLVE [facility] in 0.4 mg 9-07 ONE (1) ity of sublingual 00:00: TABLET(S) [place] tablet 00 BY MOUTH Medical UNDER THE Branch TONGUE ONCE EVERY 5 MINUTES NEEDED FOR CHEST PAIN. nitroglycer 2023-0 Yes [id number] DISSOLVE [facility] in 0.4 mg 9-07 ONE (1) ity of sublingual 00:00: TABLET(S) [place] tablet 00 BY MOUTH Medical UNDER THE Branch TONGUE ONCE EVERY 5 MINUTES NEEDED FOR CHEST PAIN. nitroglycer 2023-0 Yes [id number] DISSOLVE [facility] in 0.4 mg 9-07 ONE (1) ity of sublingual 00:00: TABLET(S) [place] tablet 00 BY MOUTH Medical UNDER THE Branch TONGUE ONCE EVERY 5 MINUTES NEEDED FOR CHEST PAIN. nitroglycer 2023-0 Yes [id number] DISSOLVE [facility] in 0.4 mg 9-07 ONE (1) ity of sublingual 00:00: TABLET(S) [place] tablet 00 BY MOUTH Medical UNDER THE Branch TONGUE ONCE EVERY 5 MINUTES NEEDED FOR CHEST PAIN. nitroglycer 2023-0 Yes [id number] DISSOLVE [facility] in 0.4 mg 9-07 ONE (1) ity of sublingual 00:00: TABLET(S) [place] tablet 00 BY MOUTH Medical UNDER THE Branch TONGUE ONCE EVERY 5 MINUTES NEEDED FOR CHEST PAIN. nitroglycer 2023-0 Yes [id number] DISSOLVE [facility] in 0.4 mg 9-07 ONE (1) ity of sublingual 00:00: TABLET(S) [place] tablet 00 BY MOUTH Medical UNDER THE Branch TONGUE ONCE EVERY 5 MINUTES NEEDED FOR CHEST PAIN. nitroglycer 2023-0 Yes [id number] DISSOLVE [facility] in 0.4 mg 9-07 ONE (1) ity of sublingual 00:00: TABLET(S) [place] tablet 00 BY MOUTH Medical UNDER THE Branch TONGUE ONCE EVERY 5 MINUTES NEEDED FOR CHEST PAIN. nitroglycer 2023-0 Yes [id number] DISSOLVE [facility] in 0.4 mg 9-07 ONE (1) ity of sublingual 00:00: TABLET(S) [place] tablet 00 BY MOUTH Medical UNDER THE Branch TONGUE ONCE EVERY 5 MINUTES NEEDED FOR CHEST PAIN. nitroglycer 2023-0 Yes [id number] DISSOLVE [facility] in 0.4 mg 9-07 ONE (1) ity of sublingual 00:00: TABLET(S) [place] tablet 00 BY MOUTH Medical UNDER THE Branch TONGUE ONCE EVERY 5 MINUTES NEEDED FOR CHEST PAIN. nitroglycer 2023-0 Yes [id number] DISSOLVE [facility] in 0.4 mg 9-07 ONE (1) ity of sublingual 00:00: TABLET(S) [place] tablet 00 BY MOUTH Medical UNDER THE Branch TONGUE ONCE EVERY 5 MINUTES NEEDED FOR CHEST PAIN. nitroglycer 2023-0 Yes [id number] DISSOLVE [facility] in 0.4 mg 9-07 ONE (1) ity of sublingual 00:00: TABLET(S) [place] tablet 00 BY MOUTH Medical UNDER THE Branch TONGUE ONCE EVERY 5 MINUTES NEEDED FOR CHEST PAIN. nitroglycer 2023-0 Yes [id number] DISSOLVE [facility] in 0.4 mg 9-07 ONE (1) ity of sublingual 00:00: TABLET(S) [place] tablet 00 BY MOUTH Medical UNDER THE Branch TONGUE ONCE EVERY 5 MINUTES NEEDED FOR CHEST PAIN. nitroglycer 2023-0 Yes [id number] DISSOLVE [facility] in 0.4 mg 9-07 ONE (1) ity of sublingual 00:00: TABLET(S) [place] tablet 00 BY MOUTH Medical UNDER THE Branch TONGUE ONCE EVERY 5 MINUTES NEEDED FOR CHEST PAIN. nitroglycer 2023-0 Yes [id number] DISSOLVE [facility] in 0.4 mg 9-07 ONE (1) ity of sublingual 00:00: TABLET(S) [place] tablet 00 BY MOUTH Medical UNDER THE Branch TONGUE ONCE EVERY 5 MINUTES NEEDED FOR CHEST PAIN. nitroglycer 2023-0 Yes [id number] DISSOLVE [facility] in 0.4 mg 9-07 ONE (1) ity of sublingual 00:00: TABLET(S) [place] tablet 00 BY MOUTH Medical UNDER THE Branch TONGUE ONCE EVERY 5 MINUTES NEEDED FOR CHEST PAIN. nitroglycer 2023-0 Yes [id number] DISSOLVE [facility] in 0.4 mg 9-07 ONE (1) ity of sublingual 00:00: TABLET(S) [place] tablet 00 BY MOUTH Medical UNDER THE Branch TONGUE ONCE EVERY 5 MINUTES NEEDED FOR CHEST PAIN. nitroglycer 2023-0 Yes [id number] DISSOLVE [facility] in 0.4 mg 9-07 ONE (1) ity of sublingual 00:00: TABLET(S) [place] tablet 00 BY MOUTH Medical UNDER THE Branch TONGUE ONCE EVERY 5 MINUTES NEEDED FOR CHEST PAIN. nitroglycer 2023-0 Yes [id number] DISSOLVE [facility] in 0.4 mg 9-07 ONE (1) ity of sublingual 00:00: TABLET(S) [place] tablet 00 BY MOUTH Medical UNDER THE Branch TONGUE ONCE EVERY 5 MINUTES NEEDED FOR CHEST PAIN. nitroglycer 2023-0 Yes [id number] DISSOLVE [facility] in 0.4 mg 9-07 ONE (1) ity of sublingual 00:00: TABLET(S) [place] tablet 00 BY MOUTH Medical UNDER THE Branch TONGUE ONCE EVERY 5 MINUTES NEEDED FOR CHEST PAIN. nitroglycer 2023-0 Yes [id number] DISSOLVE [facility] in 0.4 mg 9-07 ONE (1) ity of sublingual 00:00: TABLET(S) [place] tablet 00 BY MOUTH Medical UNDER THE Branch TONGUE ONCE EVERY 5 MINUTES NEEDED FOR CHEST PAIN. nitroglycer 2023-0 Yes [id number] DISSOLVE [facility] in 0.4 mg 9-07 ONE (1) ity of sublingual 00:00: TABLET(S) [place] tablet 00 BY MOUTH Medical UNDER THE Branch TONGUE ONCE EVERY 5 MINUTES NEEDED FOR CHEST PAIN. nitroglycer 2023-0 Yes [id number] DISSOLVE [facility] in 0.4 mg 9-07 ONE (1) ity of sublingual 00:00: TABLET(S) [place] tablet 00 BY MOUTH Medical UNDER THE Branch TONGUE ONCE EVERY 5 MINUTES NEEDED FOR CHEST PAIN. nitroglycer 2023-0 Yes [id number] DISSOLVE [facility] in 0.4 mg 9-07 ONE (1) ity of sublingual 00:00: TABLET(S) [place] tablet 00 BY MOUTH Medical UNDER THE Branch TONGUE ONCE EVERY 5 MINUTES NEEDED FOR CHEST PAIN. nitroglycer 2023-0 Yes [id number] DISSOLVE [facility] in 0.4 mg 9-07 ONE (1) ity of sublingual 00:00: TABLET(S) [place] tablet 00 BY MOUTH Medical UNDER THE Branch TONGUE ONCE EVERY 5 MINUTES NEEDED FOR CHEST PAIN. nitroglycer 2023-0 Yes [id number] DISSOLVE [facility] in 0.4 mg 9-07 ONE (1) ity of sublingual 00:00: TABLET(S) [place] tablet 00 BY MOUTH Medical UNDER THE Branch TONGUE ONCE EVERY 5 MINUTES NEEDED FOR CHEST PAIN. nitroglycer 2023-0 Yes [id number] DISSOLVE [facility] in 0.4 mg 9-07 ONE (1) ity of sublingual 00:00: TABLET(S) [place] tablet 00 BY MOUTH Medical UNDER THE Branch TONGUE ONCE EVERY 5 MINUTES NEEDED FOR CHEST PAIN. nitroglycer 2023-0 Yes [id number] DISSOLVE [facility] in 0.4 mg 9-07 ONE (1) ity of sublingual 00:00: TABLET(S) [place] tablet 00 BY MOUTH Medical UNDER THE Branch TONGUE ONCE EVERY 5 MINUTES NEEDED FOR CHEST PAIN. nitroglycer 2023-0 Yes [id number] DISSOLVE [facility] in 0.4 mg 9-07 ONE (1) ity of sublingual 00:00: TABLET(S) [place] tablet 00 BY MOUTH Medical UNDER THE Branch TONGUE ONCE EVERY 5 MINUTES NEEDED FOR CHEST PAIN. nitroglycer 2023-0 Yes [id number] DISSOLVE [facility] in 0.4 mg 9-07 ONE (1) ity of sublingual 00:00: TABLET(S) [place] tablet 00 BY MOUTH Medical UNDER THE Branch TONGUE ONCE EVERY 5 MINUTES NEEDED FOR CHEST PAIN. nitroglycer 2023-0 Yes [id number] DISSOLVE [facility] in 0.4 mg 06-06 ONE (1) ity of sublingual 00:00: TABLET(S) [place] tablet 00 BY MOUTH Medical UNDER THE Branch TONGUE ONCE EVERY 5 MINUTES NEEDED FOR CHEST PAIN. nitroglycer Yes [id number] DISSOLVE [facility] in 0.4 mg 06-06 ONE (1) ity of sublingual 00:00: TABLET(S) [place] tablet 00 BY MOUTH Medical UNDER THE Branch TONGUE ONCE EVERY 5 MINUTES NEEDED FOR CHEST PAIN. lidocaine 2022- No [id number] 11mL Un javed (XYLOCAINE) 05-21 ity of 2 % jelly 23:00: 22:06 [place] URO-JET 11 00 :00 Medical mL Branch sulfamethox 2022- No [id number] 1{tbl} [facility] azole-trime 05-21 ity of thoprim 23:00: 22:08 [place] (BACTRIM 00 :00 Medical DS) 800-160 Branch mg per tablet 1 tablet sulfamethox 2022- No [id number] 1{tbl} 1 tablet, [facility] azole-trime 05-21 Oral, ity of thoprim 23:00: 22:08 ONCE, 1 [place] (BACTRIM 00 :00 dose, On Medical DS) 800-160 Tue Branch mg per 05/21/23 at tablet 1 1800, tablet ERNESTINE
Re ason for Anti-Infec tive: Surgical Prophylaxi s
Surgi eric Prophylaxi s: Genitourin porsche
Dur ation of therapy: within 24 hours of surgery lidocaine 2022- No [id number] 11mL 11 mL, [facility] (XYLOCAINE) 05-21 Urethral, it y of 2 % jelly 23:00: 22:06 ONCE, 1 [place] [facility]RO-JET 11 00 :00 dose, On Medic al mL Tue Branch 05/21/23 at 1800, Routine lidocaine 2022-2022- No [id number] 11mL Un javed (XYLOCAINE) 05-21 ity of 2 % jelly 23:00: 22:06 [place] URO-JET 11 00 :00 Medical mL Branch sulfamethox 2022- No [id number] 1{tbl} [facility] azole-trime 05-21 ity of thoprim 23:00: 22:08 [place] (BACTRIM 00 :00 Medical DS) 800-160 Branch mg per tablet 1 tablet sulfamethox 0 2022- No [id number] 1{tbl} 1 tablet, [facility] azole-trime 05-21 Oral, ity of thoprim 23:00: 22:08 ONCE, 1 [place] (BACTRIM 00 :00 dose, On Medical DS) 800-160 Tue Branch mg per 05/21/23 at tablet 1 1800, tablet ERNESTINE
Re ason for Anti-Infec tive: Surgical Prophylaxi s
Surgi eric Prophylaxi s: Genitourin porsche
Dur ation of therapy: within 24 hours of surgery lidocaine 0 2022- No [id number] 11mL 11 mL, [facility] (XYLOCAINE) 05-21 Urethral, it y of 2 % jelly 23:00: 22:06 ONCE, 1 [place] [facility]RO-JET 11 00 :00 dose, On Medic al mL Tue Branch 05/21/23 at 1800, Routine lidocaine 2022- No [id number] 11mL Un javed (XYLOCAINE) 05-21 ity of 2 % jelly 23:00: 22:06 [place] URO-JET 11 00 :00 Medical mL Branch sulfamethox 2022- No [id number] 1{tbl} [facility] azole-trime 05-21 ity of thoprim 23:00: 22:08 [place] (BACTRIM 00 :00 Medical DS) 800-160 Branch mg per tablet 1 tablet sulfamethox 2022- No [id number] 1{tbl} 1 tablet, [facility] azole-trime 05-21 Oral, ity of thoprim 23:00: 22:08 ONCE, 1 [place] (BACTRIM 00 :00 dose, On Medical DS) 800-160 Tue Branch mg per 05/21/23 at tablet 1 1800, tablet ERNESTINE
Re ason for Anti-Infec tive: Surgical Prophylaxi s
Surgi eric Prophylaxi s: Genitourin porsche
Dur ation of therapy: within 24 hours of surgery lidocaine 2022- No [id number] 11mL 11 mL, [facility] (XYLOCAINE) 05-21 Urethral, it y of 2 % jelly 23:00: 22:06 ONCE, 1 [place] [facility]RO-JET 11 00 :00 dose, On Medic al mL Tue Branch 05/21/23 at 1800, Routine lidocaine 0 2022- No [id number] 11mL Un javed (XYLOCAINE) 05-21 ity of 2 % jelly 23:00: 22:06 [place] URO-JET 11 00 :00 Medical mL Branch sulfamethox 2022- No [id number] 1{tbl} [facility] azole-trime 05-21 ity of thoprim 23:00: 22:08 [place] (BACTRIM 00 :00 Medical DS) 800-160 Branch mg per tablet 1 tablet sulfamethox 2022- No [id number] 1{tbl} 1 tablet, [facility] azole-trime 05-21 Oral, ity of thoprim 23:00: 22:08 ONCE, 1 [place] (BACTRIM 00 :00 dose, On Medical DS) 800-160 Tue Branch mg per 05/21/23 at tablet 1 1800, tablet ERNESTINE
Re ason for Anti-Infec tive: Surgical Prophylaxi s
Surgi eric Prophylaxi s: Genitourin porsche
Dur ation of therapy: within 24 hours of surgery lidocaine 2022- No [id number] 11mL 11 mL, [facility] (XYLOCAINE) 05-21 Urethral, it y of 2 % jelly 23:00: 22:06 ONCE, 1 [place] [facility]RO-JET 11 00 :00 dose, On Medic al mL Tue Branch 05/21/23 at 1800, Routine vitamin Yes 1{capsu Take 1 Unive rs D3-vitamin 7-27 le} capsule by ity of K2 00:00: mouth [place] 1,250-200 00 every 2 Medical mcg Cap (two) Branch weeks. vitamin Yes 1{capsu Take 1 Unive rs D3-vitamin 7-27 le} capsule by ity of K2 00:00: mouth [place] 1,250-200 00 every 2 Medical mcg Cap (two) Branch weeks. vitamin 2023-0 Yes 1{capsu Take 1 Unive rs D3-vitamin 7-27 le} capsule by ity of K2 00:00: mouth [place] 1,250-200 00 every 2 Medical mcg Cap (two) Branch weeks. vitamin 2023-0 Yes 1{capsu Take 1 Unive rs D3-vitamin 7-27 le} capsule by ity of K2 00:00: mouth [place] 1,250-200 00 every 2 Medical mcg Cap (two) Branch weeks. vitamin 2023-0 Yes 1{capsu Take 1 Unive rs D3-vitamin 7-27 le} capsule by ity of K2 00:00: mouth [place] 1,250-200 00 every 2 Medical mcg Cap (two) Branch weeks. vitamin 2023-0 Yes 1{capsu Take 1 Unive rs D3-vitamin 7-27 le} capsule by ity of K2 00:00: mouth [place] 1,250-200 00 every 2 Medical mcg Cap (two) Branch weeks. vitamin 2023-0 Yes 1{capsu Take 1 Unive rs D3-vitamin 7-27 le} capsule by ity of K2 00:00: mouth [place] 1,250-200 00 every 2 Medical mcg Cap (two) Branch weeks. vitamin 2023-0 Yes 1{capsu Take 1 Unive rs D3-vitamin 7-27 le} capsule by ity of K2 00:00: mouth [place] 1,250-200 00 every 2 Medical mcg Cap (two) Branch weeks. vitamin 2023-0 Yes 1{capsu Take 1 Unive rs D3-vitamin 7-27 le} capsule by ity of K2 00:00: mouth [place] 1,250-200 00 every 2 Medical mcg Cap (two) Branch weeks. vitamin 2023-0 Yes 1{capsu Take 1 Unive rs D3-vitamin 7-27 le} capsule by ity of K2 00:00: mouth [place] 1,250-200 00 every 2 Medical mcg Cap (two) Branch weeks. vitamin 2023-0 Yes 1{capsu Take 1 Unive rs D3-vitamin 7-27 le} capsule by ity of K2 00:00: mouth [place] 1,250-200 00 every 2 Medical mcg Cap (two) Branch weeks. vitamin 2023-0 Yes 1{capsu Take 1 Unive rs D3-vitamin 7-27 le} capsule by ity of K2 00:00: mouth [place] 1,250-200 00 every 2 Medical mcg Cap (two) Branch weeks. vitamin 2023-0 Yes 1{capsu Take 1 Unive rs D3-vitamin 7-27 le} capsule by ity of K2 00:00: mouth [place] 1,250-200 00 every 2 Medical mcg Cap (two) Branch weeks. vitamin 2023-0 Yes 1{capsu Take 1 Unive rs D3-vitamin 7-27 le} capsule by ity of K2 00:00: mouth [place] 1,250-200 00 every 2 Medical mcg Cap (two) Branch weeks. vitamin 2023-0 Yes 1{capsu Take 1 Unive rs D3-vitamin 7-27 le} capsule by ity of K2 00:00: mouth [place] 1,250-200 00 every 2 Medical mcg Cap (two) Branch weeks. vitamin 2023-0 Yes 1{capsu Take 1 Unive rs D3-vitamin 7-27 le} capsule by ity of K2 00:00: mouth [place] 1,250-200 00 every 2 Medical mcg Cap (two) Branch weeks. vitamin 2023-0 Yes 1{capsu Take 1 Unive rs D3-vitamin 7-27 le} capsule by ity of K2 00:00: mouth [place] 1,250-200 00 every 2 Medical mcg Cap (two) Branch weeks. vitamin 2023-0 Yes 1{capsu Take 1 Unive rs D3-vitamin 7-27 le} capsule by ity of K2 00:00: mouth [place] 1,250-200 00 every 2 Medical mcg Cap (two) Branch weeks. vitamin 2023-0 Yes 1{capsu Take 1 Unive rs D3-vitamin 7-27 le} capsule by ity of K2 00:00: mouth [place] 1,250-200 00 every 2 Medical mcg Cap (two) Branch weeks. vitamin 2023-0 Yes 1{capsu Take 1 Unive rs D3-vitamin 7-27 le} capsule by ity of K2 00:00: mouth [place] 1,250-200 00 every 2 Medical mcg Cap (two) Branch weeks. vitamin 2023-0 Yes 1{capsu Take 1 Unive rs D3-vitamin 7-27 le} capsule by ity of K2 00:00: mouth [place] 1,250-200 00 every 2 Medical mcg Cap (two) Branch weeks. vitamin 2023-0 Yes 1{capsu Take 1 Unive rs D3-vitamin 7-27 le} capsule by ity of K2 00:00: mouth [place] 1,250-200 00 every 2 Medical mcg Cap (two) Branch weeks. vitamin 2023-0 Yes 1{capsu Take 1 Unive rs D3-vitamin 7-27 le} capsule by ity of K2 00:00: mouth [place] 1,250-200 00 every 2 Medical mcg Cap (two) Branch weeks. vitamin 2023-0 Yes 1{capsu Take 1 Unive rs D3-vitamin 7-27 le} capsule by ity of K2 00:00: mouth [place] 1,250-200 00 every 2 Medical mcg Cap (two) Branch weeks. vitamin 2023-0 Yes 1{capsu Take 1 Unive rs D3-vitamin 7-27 le} capsule by ity of K2 00:00: mouth [place] 1,250-200 00 every 2 Medical mcg Cap (two) Branch weeks. vitamin 2023-0 Yes 1{capsu Take 1 Unive rs D3-vitamin 7-27 le} capsule by ity of K2 00:00: mouth [place] 1,250-200 00 every 2 Medical mcg Cap (two) Branch weeks. vitamin 2023-0 Yes 1{capsu Take 1 Unive rs D3-vitamin 7-27 le} capsule by ity of K2 00:00: mouth [place] 1,250-200 00 every 2 Medical mcg Cap (two) Branch weeks. vitamin 2023-0 Yes 1{capsu Take 1 Unive rs D3-vitamin 7-27 le} capsule by ity of K2 00:00: mouth [place] 1,250-200 00 every 2 Medical mcg Cap (two) Branch weeks. vitamin 2023-0 Yes 1{capsu Take 1 Unive rs D3-vitamin 7-27 le} capsule by ity of K2 00:00: mouth [place] 1,250-200 00 every 2 Medical mcg Cap (two) Branch weeks. vitamin 2023-0 Yes 1{capsu Take 1 Unive rs D3-vitamin 7-27 le} capsule by ity of K2 00:00: mouth [place] 1,250-200 00 every 2 Medical mcg Cap (two) Branch weeks. vitamin 2023-0 Yes 1{capsu Take 1 Unive rs D3-vitamin 7-27 le} capsule by ity of K2 00:00: mouth [place] 1,250-200 00 every 2 Medical mcg Cap (two) Branch weeks. torsemide 2023-0 2024- No 20mg Take 1 Unive rs 20 mg 7-27 07-27 tablet by ity of tablet 00:00: 04:59 mouth in [place] 00 :00 the Medical morning. Branch torsemide 2023-0 2024- No 20mg Take 1 Unive rs 20 mg 7-27 07-27 tablet by ity of tablet 00:00: 04:59 mouth in [place] 00 :00 the Medical morning. Branch torsemide 2023-0 2024- No 20mg Take 1 Unive rs 20 mg 7-27 07-27 tablet by ity of tablet 00:00: 04:59 mouth in [place] 00 :00 the Medical morning. Branch torsemide 2023-0 2024- No 20mg Take 1 Unive rs 20 mg 7-27 07-27 tablet by ity of tablet 00:00: 04:59 mouth in [place] 00 :00 the Medical morning. Branch torsemide 2023-0 2024- No 20mg Take 1 Unive rs 20 mg 7-27 07-27 tablet by ity of tablet 00:00: 04:59 mouth in [place] 00 :00 the Medical morning. Branch torsemide 2023-0 2024- No 20mg Take 1 Unive rs 20 mg 7-27 07-27 tablet by ity of tablet 00:00: 04:59 mouth in [place] 00 :00 the Medical morning. Branch torsemide 2023-0 2024- No 20mg Take 1 Unive rs 20 mg 7-27 07-27 tablet by ity of tablet 00:00: 04:59 mouth in [place] 00 :00 the Medical morning. Branch torsemide 2023-0 2024- No 20mg Take 1 Unive rs 20 mg 7-27 07-27 tablet by ity of tablet 00:00: 04:59 mouth in [place] 00 :00 the Medical morning. Branch torsemide 2023-0 2024- No 20mg Take 1 Unive rs 20 mg 7-27 07-27 tablet by ity of tablet 00:00: 04:59 mouth in [place] 00 :00 the Medical morning. Branch torsemide 2023-0 2024- No 20mg Take 1 Unive rs 20 mg 7-27 07-27 tablet by ity of tablet 00:00: 04:59 mouth in [place] 00 :00 the Medical morning. Branch torsemide 2023-0 2024- No 20mg Take 1 Unive rs 20 mg 7-27 07-27 tablet by ity of tablet 00:00: 04:59 mouth in [place] 00 :00 the Medical morning. Branch torsemide 2023-0 2024- No 20mg Take 1 Unive rs 20 mg 7-27 07-27 tablet by ity of tablet 00:00: 04:59 mouth in [place] 00 :00 the Medical morning. Branch torsemide 2023-0 2024- No 20mg Take 1 Unive rs 20 mg 7-27 07-27 tablet by ity of tablet 00:00: 04:59 mouth in [place] 00 :00 the Medical morning. Branch torsemide 2023-0 2024- No 20mg Take 1 Unive rs 20 mg 7-27 07-27 tablet by ity of tablet 00:00: 04:59 mouth in [place] 00 :00 the Medical morning. Branch torsemide 2023-0 2024- No 20mg Take 1 Unive rs 20 mg 7-27 07-27 tablet by ity of tablet 00:00: 04:59 mouth in [place] 00 :00 the Medical morning. Branch torsemide 2023-0 2024- No 20mg Take 1 Unive rs 20 mg 7-27 07-27 tablet by ity of tablet 00:00: 04:59 mouth in [place] 00 :00 the Medical morning. Branch torsemide 2023-0 2024- No 20mg Take 1 Unive rs 20 mg 7-27 07-27 tablet by ity of tablet 00:00: 04:59 mouth in [place] 00 :00 the Medical morning. Branch torsemide 2023-0 2024- No 20mg Take 1 Unive rs 20 mg 7-27 07-27 tablet by ity of tablet 00:00: 04:59 mouth in [place] 00 :00 the Medical morning. Branch torsemide 2023-0 2024- No 20mg Take 1 Unive rs 20 mg 7-27 07-27 tablet by ity of tablet 00:00: 04:59 mouth in [place] 00 :00 the Medical morning. Branch torsemide 2023-0 2024- No 20mg Take 1 Unive rs 20 mg 7-27 07-27 tablet by ity of tablet 00:00: 04:59 mouth in [place] 00 :00 the Medical morning. Branch torsemide 2023-0 2024- No 20mg Take 1 Unive rs 20 mg 7-27 07-27 tablet by ity of tablet 00:00: 04:59 mouth in [place] 00 :00 the Medical morning. Branch torsemide 2023-0 2024- No 20mg Take 1 Unive rs 20 mg 7-27 07-27 tablet by ity of tablet 00:00: 04:59 mouth in [place] 00 :00 the Medical morning. Branch torsemide 2023-0 2024- No 20mg Take 1 Unive rs 20 mg 7-27 07-27 tablet by ity of tablet 00:00: 04:59 mouth in [place] 00 :00 the Medical morning. Branch torsemide 2023-0 2024- No 20mg Take 1 Unive rs 20 mg 7-27 07-27 tablet by ity of tablet 00:00: 04:59 mouth in [place] 00 :00 the Medical morning. Branch torsemide 2023-0 2024- No 20mg Take 1 Unive rs 20 mg 7-27 07-27 tablet by ity of tablet 00:00: 04:59 mouth in [place] 00 :00 the Medical morning. Branch torsemide 2023-0 2024- No 20mg Take 1 Unive rs 20 mg 7-27 07-27 tablet by ity of tablet 00:00: 04:59 mouth in [place] 00 :00 the Medical morning. Branch torsemide 2023-0 2024- No 20mg Take 1 Unive rs 20 mg 7-27 07-27 tablet by ity of tablet 00:00: 04:59 mouth in [place] 00 :00 the Medical morning. Branch torsemide 2023-0 2024- No 20mg Take 1 Unive rs 20 mg 7-27 07-27 tablet by ity of tablet 00:00: 04:59 mouth in [place] 00 :00 the Medical morning. Branch torsemide 2023-0 2024- No 20mg Take 1 Unive rs 20 mg 7-27 07-27 tablet by ity of tablet 00:00: 04:59 mouth in [place] 00 :00 the Medical morning. Branch torsemide 2023-0 2024- No 20mg Take 1 Unive rs 20 mg 7-27 07-27 tablet by ity of tablet 00:00: 04:59 mouth in [place] 00 :00 the Medical morning. Branch torsemide 2022-0 2024- No 20mg Take 1 Unive rs 20 mg 7-27 07-27 tablet by ity of tablet 00:00: 04:59 mouth in [place] 00 :00 the Medical morning. Branch CARVEDILOL 2022-0 Yes [id number] TAKE ONE [facility] 25 mg 7-10 (1) ity of tablet 00:00: TABLET(S) BY MOUTH Medical TWICE A Branch DAY WITH MEALS. CARVEDILOL 2022-0 Yes [id number] TAKE ONE [facility] 25 mg 7-10 (1) ity of tablet 00:00: TABLET(S) 00 BY MOUTH Medical TWICE A Branch DAY WITH MEALS. CARVEDILOL 2022-0 Yes [id number] TAKE ONE [facility] 25 mg 7-10 (1) ity of tablet 00:00: TABLET(S) 00 BY MOUTH Medical TWICE A Branch DAY WITH MEALS. CARVEDILOL 2022-0 Yes [id number] TAKE ONE [facility] 25 mg 7-10 (1) ity of tablet 00:00: TABLET(S) BY MOUTH Medical TWICE A Branch DAY WITH MEALS. CARVEDILOL 2022-0 Yes [id number] TAKE ONE [facility] 25 mg 7-10 (1) ity of tablet 00:00: TABLET(S) 00 BY MOUTH Medical TWICE A Branch DAY WITH MEALS. CARVEDILOL 2022-0 Yes [id number] TAKE ONE [facility] 25 mg 7-10 (1) ity of tablet 00:00: TABLET(S) 00 BY MOUTH Medical TWICE A Branch DAY WITH MEALS. CARVEDILOL 2022-0 Yes [id number] TAKE ONE [facility] 25 mg 7-10 (1) ity of tablet 00:00: TABLET(S) 00 BY MOUTH Medical TWICE A Branch DAY WITH MEALS. CARVEDILOL 2022-0 Yes [id number] TAKE ONE [facility] 25 mg 7-10 (1) ity of tablet 00:00: TABLET(S) 00 BY MOUTH Medical TWICE A Branch DAY WITH MEALS. CARVEDILOL 2022-0 Yes [id number] TAKE ONE [facility] 25 mg 7-10 (1) ity of tablet 00:00: TABLET(S) 00 BY MOUTH Medical TWICE A Branch DAY WITH MEALS. CARVEDILOL 2022-0 Yes [id number] TAKE ONE [facility] 25 mg 7-10 (1) ity of tablet 00:00: TABLET(S) [place] 00 BY MOUTH Medical TWICE A Branch DAY WITH MEALS. CARVEDILOL 2023-0 Yes [id number] TAKE ONE [facility] 25 mg 7-10 (1) ity of tablet 00:00: TABLET(S) [place] 00 BY MOUTH Medical TWICE A Branch DAY WITH MEALS. CARVEDILOL 2023-0 Yes [id number] TAKE ONE [facility] 25 mg 7-10 (1) ity of tablet 00:00: TABLET(S) [place] 00 BY MOUTH Medical TWICE A Branch DAY WITH MEALS. CARVEDILOL 2023-0 Yes [id number] TAKE ONE [facility] 25 mg 7-10 (1) ity of tablet 00:00: TABLET(S) [place] 00 BY MOUTH Medical TWICE A Branch DAY WITH MEALS. CARVEDILOL 2023-0 Yes [id number] TAKE ONE [facility] 25 mg 7-10 (1) ity of tablet 00:00: TABLET(S) [place] 00 BY MOUTH Medical TWICE A Branch DAY WITH MEALS. CARVEDILOL 2023-0 Yes [id number] TAKE ONE [facility] 25 mg 7-10 (1) ity of tablet 00:00: TABLET(S) [place] 00 BY MOUTH Medical TWICE A Branch DAY WITH MEALS. CARVEDILOL 2023-0 Yes [id number] TAKE ONE [facility] 25 mg 7-10 (1) ity of tablet 00:00: TABLET(S) [place] 00 BY MOUTH Medical TWICE A Branch DAY WITH MEALS. CARVEDILOL 2023-0 Yes [id number] TAKE ONE [facility] 25 mg 7-10 (1) ity of tablet 00:00: TABLET(S) [place] 00 BY MOUTH Medical TWICE A Branch DAY WITH MEALS. CARVEDILOL 2023-0 Yes [id number] TAKE ONE [facility] 25 mg 7-10 (1) ity of tablet 00:00: TABLET(S) [place] 00 BY MOUTH Medical TWICE A Branch DAY WITH MEALS. CARVEDILOL 2023-0 Yes [id number] TAKE ONE [facility] 25 mg 7-10 (1) ity of tablet 00:00: TABLET(S) [place] 00 BY MOUTH Medical TWICE A Branch DAY WITH MEALS. CARVEDILOL 2023-0 Yes [id number] TAKE ONE [facility] 25 mg 7-10 (1) ity of tablet 00:00: TABLET(S) [place] 00 BY MOUTH Medical TWICE A Branch DAY WITH MEALS. CARVEDILOL 2023-0 Yes [id number] TAKE ONE [facility] 25 mg 7-10 (1) ity of tablet 00:00: TABLET(S) [place] 00 BY MOUTH Medical TWICE A Branch DAY WITH MEALS. CARVEDILOL 2023-0 Yes [id number] TAKE ONE [facility] 25 mg 7-10 (1) ity of tablet 00:00: TABLET(S) [place] 00 BY MOUTH Medical TWICE A Branch DAY WITH MEALS. CARVEDILOL 2023-0 Yes [id number] TAKE ONE [facility] 25 mg 7-10 (1) ity of tablet 00:00: TABLET(S) [place] 00 BY MOUTH Medical TWICE A Branch DAY WITH MEALS. CARVEDILOL 2023-0 Yes [id number] TAKE ONE [facility] 25 mg 7-10 (1) ity of tablet 00:00: TABLET(S) [place] 00 BY MOUTH Medical TWICE A Branch DAY WITH MEALS. CARVEDILOL 2023-0 Yes [id number] TAKE ONE [facility] 25 mg 7-10 (1) ity of tablet 00:00: TABLET(S) [place] 00 BY MOUTH Medical TWICE A Branch DAY WITH MEALS. CARVEDILOL 2023-0 Yes [id number] TAKE ONE [facility] 25 mg 7-10 (1) ity of tablet 00:00: TABLET(S) [place] 00 BY MOUTH Medical TWICE A Branch DAY WITH MEALS. CARVEDILOL 2023-0 Yes [id number] TAKE ONE [facility] 25 mg 7-10 (1) ity of tablet 00:00: TABLET(S) [place] 00 BY MOUTH Medical TWICE A Branch DAY WITH MEALS. CARVEDILOL 2023-0 Yes [id number] TAKE ONE [facility] 25 mg 7-10 (1) ity of tablet 00:00: TABLET(S) [place] 00 BY MOUTH Medical TWICE A Branch DAY WITH MEALS. CARVEDILOL 2023-0 Yes [id number] TAKE ONE [facility] 25 mg 7-10 (1) ity of tablet 00:00: TABLET(S) [place] 00 BY MOUTH Medical TWICE A Branch DAY WITH MEALS. CARVEDILOL 2023-0 Yes [id number] TAKE ONE [facility] 25 mg 7-10 (1) ity of tablet 00:00: TABLET(S) [place] 00 BY MOUTH Medical TWICE A Branch DAY WITH MEALS. CARVEDILOL 2023-0 Yes [id number] TAKE ONE [facility] 25 mg 7-10 (1) ity of tablet 00:00: TABLET(S) [place] 00 BY MOUTH Medical TWICE A Branch DAY WITH MEALS. CARVEDILOL 2023-0 Yes [id number] TAKE ONE [facility] 25 mg 7-10 (1) ity of tablet 00:00: TABLET(S) [place] 00 BY MOUTH Medical TWICE A Branch DAY WITH MEALS. CARVEDILOL 2023-0 Yes [id number] TAKE ONE [facility] 25 mg 7-10 (1) ity of tablet 00:00: TABLET(S) [place] 00 BY MOUTH Medical TWICE A Branch DAY WITH MEALS. CARVEDILOL 2023-0 Yes [id number] TAKE ONE [facility] 25 mg 7-10 (1) ity of tablet 00:00: TABLET(S) [place] 00 BY MOUTH Medical TWICE A Branch DAY WITH MEALS. CARVEDILOL 3-0 Yes [id number] TAKE ONE [facility] 25 mg 7-10 (1) ity of tablet 00:00: TABLET(S) [place] 00 BY MOUTH Medical TWICE A Branch DAY WITH MEALS. CARVEDILOL 2023-0 Yes [id number] TAKE ONE [facility] 25 mg 7-10 (1) ity of tablet 00:00: TABLET(S) [place] 00 BY MOUTH Medical TWICE A Branch DAY WITH MEALS. CARVEDILOL 3-0 Yes [id number] TAKE ONE [facility] 25 mg 7-10 (1) ity of tablet 00:00: TABLET(S) [place] 00 BY MOUTH Medical TWICE A Branch DAY WITH MEALS. CARVEDILOL 3-0 Yes [id number] TAKE ONE [facility] 25 mg 7-10 (1) ity of tablet 00:00: TABLET(S) [place] 00 BY MOUTH Medical TWICE A Branch DAY WITH MEALS. CARVEDILOL 2023-0 Yes [id number] TAKE ONE [facility] 25 mg 7-10 (1) ity of tablet 00:00: TABLET(S) [place] 00 BY MOUTH Medical TWICE A Branch DAY WITH MEALS. CARVEDILOL 2023-0 Yes [id number] TAKE ONE [facility] 25 mg 7-10 (1) ity of tablet 00:00: TABLET(S) [place] 00 BY MOUTH Medical TWICE A Branch DAY WITH MEALS. CARVEDILOL 2023-0 Yes [id number] TAKE ONE [facility] 25 mg 7-10 (1) ity of tablet 00:00: TABLET(S) [place] 00 BY MOUTH Medical TWICE A Branch DAY WITH MEALS. CARVEDILOL 2023-0 Yes [id number] TAKE ONE [facility] 25 mg 7-10 (1) ity of tablet 00:00: TABLET(S) [place] 00 BY MOUTH Medical TWICE A Branch DAY WITH MEALS. CARVEDILOL 2022-0 Yes [id number] TAKE ONE [facility] 25 mg 7-10 (1) ity of tablet 00:00: TABLET(S) [place] 00 BY MOUTH Medical TWICE A Branch DAY WITH MEALS. CARVEDILOL 2022-0 Yes [id number] TAKE ONE [facility] 25 mg 7-10 (1) ity of tablet 00:00: TABLET(S) [place] 00 BY MOUTH Medical TWICE A Branch DAY WITH MEALS. CARVEDILOL 2022-0 Yes [id number] TAKE ONE [facility] 25 mg 7-10 (1) ity of tablet 00:00: TABLET(S) [place] 00 BY MOUTH Medical TWICE A Branch DAY WITH MEALS. CARVEDILOL 2022-0 Yes [id number] TAKE ONE [facility] 25 mg 7-10 (1) ity of tablet 00:00: TABLET(S) [place] 00 BY MOUTH Medical TWICE A Branch DAY WITH MEALS. CARVEDILOL 2022-0 Yes [id number] TAKE ONE [facility] 25 mg 7-10 (1) ity of tablet 00:00: TABLET(S) 00 BY MOUTH Medical TWICE A Branch DAY WITH MEALS. CARVEDILOL 2022-0 Yes [id number] TAKE ONE [facility] 25 mg 7-10 (1) ity of tablet 00:00: TABLET(S) [place] 00 BY MOUTH Medical TWICE A Branch DAY WITH MEALS. CARVEDILOL 2022-0 2023- No [id number] TAKE ONE [facility] 25 mg 7-10 09-29 (1) ity of tablet 00:00: 00:00 TABLET(S) [place] 00 :00 BY MOUTH Medical TWICE A Branch DAY WITH MEALS. tamsulosin 2022-0 2022- No Take by [facility] vers 0.4 mg 24 04-05 mouth ity of hr capsule 15:31: 00:00 daily. [facility] 38 :00 [facility] tamsulosin 2022-0 2022- No Take by Uni vers 0.4 mg 24 04-05 mouth ity of hr capsule 15:31: 00:00 daily. [facility] 38 :00 [facility] atorvastati 2022-0 Yes [id number] 40mg Take 1 [facility] n 40 mg 7-07 tablet by ity of tablet 00:00: mouth at [place] 00 bedtime. Medical Branch doxepin 10 2022-0 Yes [id number] 10mg Take 1 [facility] mg capsule 7-07 capsule by ity of 00:00: mouth at [place] 00 bedtime. Medical Branch SERTraline 2022-0 Yes [id number] 25mg Take 1 [facility] 25 mg 7-07 tablet by ity of tablet 00:00: mouth in [place] 00 the Medical morning. Branch tamsulosin 2022-0 Yes [id number] .4mg Take 1 [facility] 0.4 mg 24 7-07 capsule by ity of hr capsule 00:00: mouth in [place] as 00 the Medical morning. Branch docusate 2022-0 Yes [id number] 100mg Take 1 Un javed (COLACE) 7-07 capsule by ity o f 100 mg 00:00: mouth once [place] capsule 00 daily as Medical needed for Branch Constipati on. atorvastati 2022-0 Yes [id number] 40mg Take 1 [facility] n 40 mg 7-07 tablet by ity of tablet 00:00: mouth at [place] 00 bedtime. Medical Branch doxepin 10 2022-0 Yes [id number] 10mg Take 1 [facility] mg capsule 7-07 capsule by ity of 00:00: mouth at [place] [address] bedtime. Medical Branch SERTraline 2022-0 Yes [id number] 25mg Take 1 [facility] 25 mg 7-07 tablet by ity of tablet 00:00: mouth in [place] 00 the Medical morning. Branch tamsulosin 2022-0 Yes [id number] .4mg Take 1 [facility] 0.4 mg 24 7-07 capsule by ity of hr capsule 00:00: mouth in [facility] as 00 the Medical morning. Branch docusate 2022-0 Yes [id number] 100mg Take 1 Un javed (COLACE) 7-07 capsule by ity o f 100 mg 00:00: mouth once [place] capsule 00 daily as Medical needed for Branch Constipati on. atorvastati 2022-0 Yes [id number] 40mg Take 1 [facility] n 40 mg 7-07 tablet by ity of tablet 00:00: mouth at [place] [address] bedtime. Medical Branch doxepin 10 2022-0 Yes [id number] 10mg Take 1 [facility] mg capsule 7-07 capsule by ity of 00:00: mouth at [place] 00 bedtime. Medical Branch SERTraline 2022-0 Yes [id number] 25mg Take 1 [facility] 25 mg 7-07 tablet by ity of tablet 00:00: mouth in [place] 00 the Medical morning. Branch tamsulosin 2022-0 Yes [id number] .4mg Take 1 [facility] 0.4 mg 24 7-07 capsule by ity of hr capsule 00:00: mouth in [facility] as 00 the Medical morning. Branch docusate 2022-0 Yes [id number] 100mg Take 1 Un javed (COLACE) 7-07 capsule by ity o f 100 mg 00:00: mouth once [place] capsule 00 daily as Medical needed for Branch Constipati on. atorvastati 2022-0 Yes [id number] 40mg Take 1 [facility] n 40 mg 7-07 tablet by ity of tablet 00:00: mouth at [place] 00 bedtime. Medical Branch doxepin 10 2022-0 Yes [id number] 10mg Take 1 [facility] mg capsule 7-07 capsule by ity of 00:00: mouth at [place] [address] bedtime. Medical Branch SERTraline 2022-0 Yes [id number] 25mg Take 1 [facility] 25 mg 7-07 tablet by ity of tablet 00:00: mouth in [place] the Medical morning. Branch tamsulosin 2022-0 Yes [id number] .4mg Take 1 [facility] 0.4 mg 24 7-07 capsule by ity of hr capsule 00:00: mouth in [facility] as 00 the Medical morning. Branch docusate 2022-0 Yes [id number] 100mg Take 1 Un javed (COLACE) 7-07 capsule by ity o f 100 mg 00:00: mouth once [place] capsule 00 daily as Medical needed for Branch Constipati on. atorvastati 2022-0 Yes [id number] 40mg Take 1 [facility] n 40 mg 7-07 tablet by ity of tablet 00:00: mouth at [place] [address] bedtime. Medical Branch doxepin 10 2022-0 Yes [id number] 10mg Take 1 [facility] mg capsule 7-07 capsule by ity of 00:00: mouth at [place] [address] bedtime. Medical Branch SERTraline 2022-0 Yes [id number] 25mg Take 1 [facility] 25 mg 7-07 tablet by ity of tablet 00:00: mouth in [place] 00 the Medical morning. Branch tamsulosin 2022-0 Yes [id number] .4mg Take 1 [facility] 0.4 mg 24 7-07 capsule by ity of hr capsule 00:00: mouth in [place] as 00 the Medical morning. Branch docusate 2022-0 Yes [id number] 100mg Take 1 Un javed (COLACE) 7-07 capsule by ity o f 100 mg 00:00: mouth once [place] capsule 00 daily as Medical needed for Branch Constipati on. atorvastati 2022-0 Yes [id number] 40mg Take 1 [facility] n 40 mg 7-07 tablet by ity of tablet 00:00: mouth at [place] 00 bedtime. Medical Branch doxepin 10 2022-0 Yes [id number] 10mg Take 1 [facility] mg capsule 7-07 capsule by ity of 00:00: mouth at [place] 00 bedtime. Medical Branch SERTraline 2022-0 Yes [id number] 25mg Take 1 [facility] 25 mg 7-07 tablet by ity of tablet 00:00: mouth in [place] 00 the Medical morning. Branch tamsulosin 2022-0 Yes [id number] .4mg Take 1 [facility] 0.4 mg 24 7-07 capsule by ity of hr capsule 00:00: mouth in [place] as 00 the Medical morning. Branch docusate 2022-0 Yes [id number] 100mg Take 1 Un javed (COLACE) 7-07 capsule by ity o f 100 mg 00:00: mouth once [place] capsule 00 daily as Medical needed for Branch Constipati on. atorvastati 2022-0 Yes [id number] 40mg Take 1 [facility] n 40 mg 7-07 tablet by ity of tablet 00:00: mouth at [place] 00 bedtime. Medical Branch doxepin 10 2022-0 Yes [id number] 10mg Take 1 [facility] mg capsule 7-07 capsule by ity of 00:00: mouth at [place] 00 bedtime. Medical Branch SERTraline 2022-0 Yes [id number] 25mg Take 1 [facility] 25 mg 7-07 tablet by ity of tablet 00:00: mouth in [place] 00 the Medical morning. Branch tamsulosin 2022-0 Yes [id number] .4mg Take 1 [facility] 0.4 mg 24 7-07 capsule by ity of hr capsule 00:00: mouth in [place] as 00 the Medical morning. Branch docusate 2022-0 Yes [id number] 100mg Take 1 Un javed (COLACE) 7-07 capsule by ity o f 100 mg 00:00: mouth once [place] capsule 00 daily as Medical needed for Branch Constipati on. atorvastati 2022-0 Yes [id number] 40mg Take 1 [facility] n 40 mg 7-07 tablet by ity of tablet 00:00: mouth at [place] 00 bedtime. Medical Branch doxepin 10 2022-0 Yes [id number] 10mg Take 1 [facility] mg capsule 7-07 capsule by ity of 00:00: mouth at [place] 00 bedtime. Medical Branch SERTraline 2022-0 Yes [id number] 25mg Take 1 [facility] 25 mg 7-07 tablet by ity of tablet 00:00: mouth in [place] 00 the Medical morning. Branch tamsulosin 2022-0 Yes [id number] .4mg Take 1 [facility] 0.4 mg 24 7-07 capsule by ity of hr capsule 00:00: mouth in [facility] as 00 the Medical morning. Branch docusate 2022-0 Yes [id number] 100mg Take 1 Un javed (COLACE) 7-07 capsule by ity o f 100 mg 00:00: mouth once [place] capsule 00 daily as Medical needed for Branch Constipati on. atorvastati 2022-0 Yes [id number] 40mg Take 1 [facility] n 40 mg 7-07 tablet by ity of tablet 00:00: mouth at [place] 00 bedtime. Medical Branch doxepin 10 2022-0 Yes [id number] 10mg Take 1 [facility] mg capsule 7-07 capsule by ity of 00:00: mouth at [place] 00 bedtime. Medical Branch SERTraline 2022-0 Yes [id number] 25mg Take 1 [facility] 25 mg 7-07 tablet by ity of tablet 00:00: mouth in [place] 00 the Medical morning. Branch tamsulosin 2022-0 Yes [id number] .4mg Take 1 [facility] 0.4 mg 24 7-07 capsule by ity of hr capsule 00:00: mouth in [place] as 00 the Medical morning. Branch docusate 2022-0 Yes [id number] 100mg Take 1 Un javed (COLACE) 7-07 capsule by ity o f 100 mg 00:00: mouth once [place] capsule 00 daily as Medical needed for Branch Constipati on. atorvastati 2022-0 Yes [id number] 40mg Take 1 [facility] n 40 mg 7-07 tablet by ity of tablet 00:00: mouth at [place] 00 bedtime. Medical Branch doxepin 10 2022-0 Yes [id number] 10mg Take 1 [facility] mg capsule 7-07 capsule by ity of 00:00: mouth at [place] [address] bedtime. Medical Branch SERTraline 2022-0 Yes [id number] 25mg Take 1 [facility] 25 mg 7-07 tablet by ity of tablet 00:00: mouth in [place] 00 the Medical morning. Branch tamsulosin 2022-0 Yes [id number] .4mg Take 1 [facility] 0.4 mg 24 7-07 capsule by ity of hr capsule 00:00: mouth in [facility] as 00 the Medical morning. Branch docusate 2022-0 Yes [id number] 100mg Take 1 Un javed (COLACE) 7-07 capsule by ity o f 100 mg 00:00: mouth once [place] capsule 00 daily as Medical needed for Branch Constipati on. atorvastati 2022-0 Yes [id number] 40mg Take 1 [facility] n 40 mg 7-07 tablet by ity of tablet 00:00: mouth at [place] [address] bedtime. Medical Branch doxepin 10 0 Yes [id number] 10mg Take 1 [facility] mg capsule 7-07 capsule by ity of 00:00: mouth at [place] 00 bedtime. Medical Branch SERTraline 2022-0 Yes [id number] 25mg Take 1 [facility] 25 mg 7-07 tablet by ity of tablet 00:00: mouth in [place] 00 the Medical morning. Branch tamsulosin 2022-0 Yes [id number] .4mg Take 1 [facility] 0.4 mg 24 7-07 capsule by ity of hr capsule 00:00: mouth in [facility] as 00 the Medical morning. Branch docusate 2022-0 Yes [id number] 100mg Take 1 Un javed (COLACE) 7-07 capsule by ity o f 100 mg 00:00: mouth once [place] capsule 00 daily as Medical needed for Branch Constipati on. atorvastati 2022-0 Yes [id number] 40mg Take 1 [facility] n 40 mg 7-07 tablet by ity of tablet 00:00: mouth at [place] [address] bedtime. Medical Branch doxepin 10 2022-0 Yes [id number] 10mg Take 1 [facility] mg capsule 7-07 capsule by ity of 00:00: mouth at [place] [address] bedtime. Medical Branch SERTraline 2022-0 Yes [id number] 25mg Take 1 [facility] 25 mg 7-07 tablet by ity of tablet 00:00: mouth in [place] 00 the Medical morning. Branch tamsulosin 2022-0 Yes [id number] .4mg Take 1 [facility] 0.4 mg 24 7-07 capsule by ity of hr capsule 00:00: mouth in [facility] as 00 the Medical morning. Branch docusate 2022-0 Yes [id number] 100mg Take 1 Un javed (COLACE) 7-07 capsule by ity o f 100 mg 00:00: mouth once [place] capsule 00 daily as Medical needed for Branch Constipati on. atorvastati 2022-0 Yes [id number] 40mg Take 1 [facility] n 40 mg 7-07 tablet by ity of tablet 00:00: mouth at [place] [address] bedtime. Medical Branch doxepin 10 2022-0 Yes [id number] 10mg Take 1 [facility] mg capsule 7-07 capsule by ity of 00:00: mouth at [place] [address] bedtime. Medical Branch SERTraline 2022-0 Yes [id number] 25mg Take 1 [facility] 25 mg 7-07 tablet by ity of tablet 00:00: mouth in [place] 00 the Medical morning. Branch tamsulosin 2022-0 Yes [id number] .4mg Take 1 [facility] 0.4 mg 24 7-07 capsule by ity of hr capsule 00:00: mouth in [facility] as 00 the Medical morning. Branch docusate 2022-0 Yes [id number] 100mg Take 1 Un javed (COLACE) 7-07 capsule by ity o f 100 mg 00:00: mouth once [place] capsule 00 daily as Medical needed for Branch Constipati on. atorvastati 2022-0 Yes [id number] 40mg Take 1 [facility] n 40 mg 7-07 tablet by ity of tablet 00:00: mouth at [place] [address] bedtime. Medical Branch doxepin 10 2022-0 Yes [id number] 10mg Take 1 [facility] mg capsule 7-07 capsule by ity of 00:00: mouth at [place] [address] bedtime. Medical Branch SERTraline 2022-0 Yes [id number] 25mg Take 1 [facility] 25 mg 7-07 tablet by ity of tablet 00:00: mouth in [place] 00 the Medical morning. Branch tamsulosin 2022-0 Yes [id number] .4mg Take 1 [facility] 0.4 mg 24 7-07 capsule by ity of hr capsule 00:00: mouth in [place] as 00 the Medical morning. Branch docusate 2022-0 Yes [id number] 100mg Take 1 Un javed (COLACE) 7-07 capsule by ity o f 100 mg 00:00: mouth once [place] capsule 00 daily as Medical needed for Branch Constipati on. atorvastati 2022-0 Yes [id number] 40mg Take 1 [facility] n 40 mg 7-07 tablet by ity of tablet 00:00: mouth at [place] 00 bedtime. Medical Branch doxepin 10 2022-0 Yes [id number] 10mg Take 1 [facility] mg capsule 7-07 capsule by ity of 00:00: mouth at [place] [address] bedtime. Medical Branch SERTraline 2022-0 Yes [id number] 25mg Take 1 [facility] 25 mg 7-07 tablet by ity of tablet 00:00: mouth in [place] 00 the Medical morning. Branch tamsulosin 2022-0 Yes [id number] .4mg Take 1 [facility] 0.4 mg 24 7-07 capsule by ity of hr capsule 00:00: mouth in [facility] as 00 the Medical morning. Branch docusate 2022-0 Yes [id number] 100mg Take 1 Un javed (COLACE) 7-07 capsule by ity o f 100 mg 00:00: mouth once [place] capsule 00 daily as Medical needed for Branch Constipati on. atorvastati 2022-0 Yes [id number] 40mg Take 1 [facility] n 40 mg 7-07 tablet by ity of tablet 00:00: mouth at [place] 00 bedtime. Medical Branch doxepin 10 2022-0 Yes [id number] 10mg Take 1 [facility] mg capsule 7-07 capsule by ity of 00:00: mouth at [place] 00 bedtime. Medical Branch SERTraline 2022-0 Yes [id number] 25mg Take 1 [facility] 25 mg 7-07 tablet by ity of tablet 00:00: mouth in [place] 00 the Medical morning. Branch tamsulosin 2022-0 Yes [id number] .4mg Take 1 [facility] 0.4 mg 24 7-07 capsule by ity of hr capsule 00:00: mouth in [place] as 00 the Medical morning. Branch docusate 2022-0 Yes [id number] 100mg Take 1 Un javed (COLACE) 7-07 capsule by ity o f 100 mg 00:00: mouth once [place] capsule 00 daily as Medical needed for Branch Constipati on. atorvastati 2022-0 Yes [id number] 40mg Take 1 [facility] n 40 mg 7-07 tablet by ity of tablet 00:00: mouth at [place] 00 bedtime. Medical Branch doxepin 10 2022-0 Yes [id number] 10mg Take 1 [facility] mg capsule 7-07 capsule by ity of 00:00: mouth at [place] 00 bedtime. Medical Branch SERTraline 2022-0 Yes [id number] 25mg Take 1 [facility] 25 mg 7-07 tablet by ity of tablet 00:00: mouth in [place] 00 the Medical morning. Branch tamsulosin 2022-0 Yes [id number] .4mg Take 1 [facility] 0.4 mg 24 7-07 capsule by ity of hr capsule 00:00: mouth in [place] as 00 the Medical morning. Branch docusate 2022-0 Yes [id number] 100mg Take 1 Un javed (COLACE) 7-07 capsule by ity o f 100 mg 00:00: mouth once [place] capsule 00 daily as Medical needed for Branch Constipati on. atorvastati 2022-0 Yes [id number] 40mg Take 1 [facility] n 40 mg 7-07 tablet by ity of tablet 00:00: mouth at [place] 00 bedtime. Medical Branch doxepin 10 2022-0 Yes [id number] 10mg Take 1 [facility] mg capsule 7-07 capsule by ity of 00:00: mouth at [place] 00 bedtime. Medical Branch SERTraline 2022-0 Yes [id number] 25mg Take 1 [facility] 25 mg 7-07 tablet by ity of tablet 00:00: mouth in [place] 00 the Medical morning. Branch tamsulosin 2022-0 Yes [id number] .4mg Take 1 [facility] 0.4 mg 24 7-07 capsule by ity of hr capsule 00:00: mouth in [place] as 00 the Medical morning. Branch docusate 2022-0 Yes [id number] 100mg Take 1 Un javed (COLACE) 7-07 capsule by ity o f 100 mg 00:00: mouth once [place] capsule 00 daily as Medical needed for Branch Constipati on. atorvastati Yes [id number] 40mg Take 1 Univers n 40 mg 7-07 tablet by ity of tablet 00:00: mouth at [place] 00 bedtime. Medical Branch doxepin 10 0 Yes [id number] 10mg Take 1 [facility] mg capsule 7-07 capsule by ity of 00:00: mouth at [place] 00 bedtime. Medical Branch SERTraline 0 Yes [id number] 25mg Take 1 [facility] 25 mg 7-07 tablet by ity of tablet 00:00: mouth in [place] 00 the Medical morning. Branch tamsulosin Yes [id number] .4mg Take 1 [facility] 0.4 mg 24 7-07 capsule by ity of hr capsule 00:00: mouth in [facility] as 00 the Medical morning. Branch docusate 0 Yes [id number] 100mg Take 1 Un javed (COLACE) 7-07 capsule by ity o f 100 mg 00:00: mouth once [place] capsule 00 daily as Medical needed for Branch Constipati on. atorvastati Yes [id number] 40mg Take 1 [facility] n 40 mg 7-07 tablet by ity of tablet 00:00: mouth at [place] 00 bedtime. Medical Branch doxepin 10 Yes [id number] 10mg Take 1 [facility] mg capsule 7-07 capsule by ity of 00:00: mouth at [place] [address] bedtime. Medical Branch SERTraline 0 Yes [id number] 25mg Take 1 [facility] 25 mg 7-07 tablet by ity of tablet 00:00: mouth in [place] 00 the Medical morning. Branch tamsulosin Yes [id number] .4mg Take 1 [facility] 0.4 mg 24 7-07 capsule by ity of hr capsule 00:00: mouth in [facility] as 00 the Medical morning. Branch docusate 2022-0 Yes [id number] 100mg Take 1 Un javed (COLACE) 7-07 capsule by ity o f 100 mg 00:00: mouth once [place] capsule 00 daily as Medical needed for Branch Constipati on. atorvastati Yes [id number] 40mg Take 1 Univers n 40 mg 7-07 tablet by ity of tablet 00:00: mouth at [place] 00 bedtime. Medical Branch doxepin 10 2023-0 Yes [id number] 10mg Take 1 [facility] mg capsule 7-07 capsule by ity of 00:00: mouth at [place] [address] bedtime. Medical Branch SERTraline 2022-0 Yes [id number] 25mg Take 1 [facility] 25 mg 7-07 tablet by ity of tablet 00:00: mouth in [place] 00 the Medical morning. Branch tamsulosin 2022-0 Yes [id number] .4mg Take 1 [facility] 0.4 mg 24 7-07 capsule by ity of hr capsule 00:00: mouth in [facility] as 00 the Medical morning. Branch docusate 2022-0 Yes [id number] 100mg Take 1 Un javed (COLACE) 7-07 capsule by ity o f 100 mg 00:00: mouth once [place] capsule 00 daily as Medical needed for Branch Constipati on. atorvastati 2022-0 Yes [id number] 40mg Take 1 Univers n 40 mg 7-07 tablet by ity of tablet 00:00: mouth at [place] [address] bedtime. Medical Branch doxepin 10 2022-0 Yes [id number] 10mg Take 1 [facility] mg capsule 7-07 capsule by ity of 00:00: mouth at [place] [address] bedtime. Medical Branch SERTraline 2022-0 Yes [id number] 25mg Take 1 [facility] 25 mg 7-07 tablet by ity of tablet 00:00: mouth in [place] 00 the Medical morning. Branch tamsulosin 2022-0 Yes [id number] .4mg Take 1 [facility] 0.4 mg 24 7-07 capsule by ity of hr capsule 00:00: mouth in [facility] as 00 the Medical morning. Branch docusate 2022-0 Yes [id number] 100mg Take 1 Un javed (COLACE) 7-07 capsule by ity o f 100 mg 00:00: mouth once [place] capsule 00 daily as Medical needed for Branch Constipati on. atorvastati 2022-0 Yes [id number] 40mg Take 1 [facility] n 40 mg 7-07 tablet by ity of tablet 00:00: mouth at [place] [address] bedtime. Medical Branch doxepin 10 2022-0 Yes [id number] 10mg Take 1 [facility] mg capsule 7-07 capsule by ity of 00:00: mouth at [place] [address] bedtime. Medical Branch SERTraline 2022-0 Yes [id number] 25mg Take 1 [facility] 25 mg 7-07 tablet by ity of tablet 00:00: mouth in [place] 00 the Medical morning. Branch tamsulosin 2022-0 Yes [id number] .4mg Take 1 [facility] 0.4 mg 24 7-07 capsule by ity of hr capsule 00:00: mouth in [facility] as 00 the Medical morning. Branch docusate 2022-0 Yes [id number] 100mg Take 1 Un javed (COLACE) 7-07 capsule by ity o f 100 mg 00:00: mouth once [place] capsule 00 daily as Medical needed for Branch Constipati on. atorvastati 2022-0 Yes [id number] 40mg Take 1 Univers n 40 mg 7-07 tablet by ity of tablet 00:00: mouth at [place] [address] bedtime. Medical Branch doxepin 10 2022-0 Yes [id number] 10mg Take 1 [facility] mg capsule 7-07 capsule by ity of 00:00: mouth at [place] [address] bedtime. Medical Branch SERTraline 2022-0 Yes [id number] 25mg Take 1 [facility] 25 mg 7-07 tablet by ity of tablet 00:00: mouth in [place] 00 the Medical morning. Branch tamsulosin 2022-0 Yes [id number] .4mg Take 1 [facility] 0.4 mg 24 7-07 capsule by ity of hr capsule 00:00: mouth in [facility] as 00 the Medical morning. Branch docusate 2022-0 Yes [id number] 100mg Take 1 Un javed (COLACE) 7-07 capsule by ity o f 100 mg 00:00: mouth once [place] capsule 00 daily as Medical needed for Branch Constipati on. atorvastati 2022-0 Yes [id number] 40mg Take 1 [facility] n 40 mg 7-07 tablet by ity of tablet 00:00: mouth at [place] [address] bedtime. Medical Branch doxepin 10 2022-0 Yes [id number] 10mg Take 1 [facility] mg capsule 7-07 capsule by ity of 00:00: mouth at [place] [address] bedtime. Medical Branch SERTraline 2022-0 Yes [id number] 25mg Take 1 [facility] 25 mg 7-07 tablet by ity of tablet 00:00: mouth in [place] 00 the Medical morning. Branch tamsulosin 2022-0 Yes [id number] .4mg Take 1 [facility] 0.4 mg 24 7-07 capsule by ity of hr capsule 00:00: mouth in [place] as 00 the Medical morning. Branch docusate 2022-0 Yes [id number] 100mg Take 1 Un javed (COLACE) 7-07 capsule by ity o f 100 mg 00:00: mouth once [place] capsule 00 daily as Medical needed for Branch Constipati on. atorvastati 2022-0 Yes [id number] 40mg Take 1 [facility] n 40 mg 7-07 tablet by ity of tablet 00:00: mouth at [place] 00 bedtime. Medical Branch doxepin 10 2022-0 Yes [id number] 10mg Take 1 [facility] mg capsule 7-07 capsule by ity of 00:00: mouth at [place] 00 bedtime. Medical Branch SERTraline 2022-0 Yes [id number] 25mg Take 1 [facility] 25 mg 7-07 tablet by ity of tablet 00:00: mouth in [place] 00 the Medical morning. Branch tamsulosin 2022-0 Yes [id number] .4mg Take 1 [facility] 0.4 mg 24 7-07 capsule by ity of hr capsule 00:00: mouth in [place] as 00 the Medical morning. Branch docusate 2022-0 Yes [id number] 100mg Take 1 Un javed (COLACE) 7-07 capsule by ity o f 100 mg 00:00: mouth once [place] capsule 00 daily as Medical needed for Branch Constipati on. atorvastati 2022-0 Yes [id number] 40mg Take 1 [facility] n 40 mg 7-07 tablet by ity of tablet 00:00: mouth at [place] 00 bedtime. Medical Branch doxepin 10 2022-0 Yes [id number] 10mg Take 1 [facility] mg capsule 7-07 capsule by ity of 00:00: mouth at [place] 00 bedtime. Medical Branch SERTraline 2022-0 Yes [id number] 25mg Take 1 [facility] 25 mg 7-07 tablet by [facility] of tablet 00:00: mouth in [place] 00 the Medical morning. Branch tamsulosin 2022-0 Yes [id number] .4mg Take 1 [facility] 0.4 mg 24 7-07 capsule by it[facility] of hr capsule 00:00: mouth in [place] as 00 the Medical morning. Branch docusate 2022-0 Yes [id number] 100mg Take 1 Un javed (COLACE) 7-07 capsule by ity o f 100 mg 00:00: mouth once [place] capsule 00 daily as Medical needed for Branch Constipati on. atorvastati 2022-0 Yes [id number] 40mg Take 1 [facility] n 40 mg 7-07 tablet by [facility] of tablet 00:00: mouth at [place] 00 bedtime. Medical Branch doxepin 10 2022-0 Yes [id number] 10mg Take 1 [facility] mg capsule 7-07 capsule by [facility] of 00:00: mouth at [place] 00 bedtime. Medical Branch SERTraline 2022-0 Yes [id number] 25mg Take 1 [facility] 25 mg 7-07 tablet by [facility] of tablet 00:00: mouth in [place] 00 the Medical morning. Branch tamsulosin 2022-0 Yes [id number] .4mg Take 1 [facility] 0.4 mg 24 7-07 capsule by ity of hr capsule 00:00: mouth in [facility] as 00 the Medical morning. Branch docusate 2022-0 Yes [id number] 100mg Take 1 Un javed (COLACE) 7-07 capsule by ity o f 100 mg 00:00: mouth once [place] capsule 00 daily as Medical needed for Branch Constipati on. atorvastati 2022-0 Yes [id number] 40mg Take 1 [facility] n 40 mg 7-07 tablet by it[facility] of tablet 00:00: mouth at [place] 00 bedtime. Medical Branch doxepin 10 0 Yes [id number] 10mg Take 1 [facility] mg capsule 7-07 capsule by ity of 00:00: mouth at [place] 00 bedtime. Medical Branch SERTraline 2022-0 Yes [id number] 25mg Take 1 [facility] 25 mg 7-07 tablet by ity of tablet 00:00: mouth in [place] 00 the Medical morning. Branch tamsulosin 2022-0 Yes [id number] .4mg Take 1 [facility] 0.4 mg 24 7-07 capsule by ity of hr capsule 00:00: mouth in [facility] as 00 the Medical morning. Branch docusate 2022-0 Yes [id number] 100mg Take 1 Un javed (COLACE) 7-07 capsule by ity o f 100 mg 00:00: mouth once [place] capsule 00 daily as Medical needed for Branch Constipati on. atorvastati 2022-0 Yes [id number] 40mg Take 1 [facility] n 40 mg 7-07 tablet by ity of tablet 00:00: mouth at [place] 00 bedtime. Medical Branch doxepin 10 2022-0 Yes [id number] 10mg Take 1 [facility] mg capsule 7-07 capsule by ity of 00:00: mouth at [place] 00 bedtime. Medical Branch SERTraline 2022-0 Yes [id number] 25mg Take 1 [facility] 25 mg 7-07 tablet by ity of tablet 00:00: mouth in [place] 00 the Medical morning. Branch tamsulosin 2022-0 Yes [id number] .4mg Take 1 [facility] 0.4 mg 24 7-07 capsule by ity of hr capsule 00:00: mouth in [facility] as 00 the Medical morning. Branch docusate 2022-0 Yes [id number] 100mg Take 1 Un javed (COLACE) 7-07 capsule by ity o f 100 mg 00:00: mouth once [place] capsule 00 daily as Medical needed for Branch Constipati on. atorvastati 2022-0 Yes [id number] 40mg Take 1 [facility] n 40 mg 7-07 tablet by ity of tablet 00:00: mouth at [place] [address] bedtime. Medical Branch doxepin 10 2022-0 Yes [id number] 10mg Take 1 [facility] mg capsule 7-07 capsule by ity of 00:00: mouth at [place] [address] bedtime. Medical Branch SERTraline 2022-0 Yes [id number] 25mg Take 1 [facility] 25 mg 7-07 tablet by ity of tablet 00:00: mouth in [place] 00 the Medical morning. Branch tamsulosin 2022-0 Yes [id number] .4mg Take 1 [facility] 0.4 mg 24 7-07 capsule by ity of hr capsule 00:00: mouth in [facility] as 00 the Medical morning. Branch docusate 2022-0 Yes [id number] 100mg Take 1 Un javed (COLACE) 7-07 capsule by ity o f 100 mg 00:00: mouth once [place] capsule 00 daily as Medical needed for Branch Constipati on. atorvastati 2022-0 Yes [id number] 40mg Take 1 [facility] n 40 mg 7-07 tablet by ity of tablet 00:00: mouth at [place] [address] bedtime. Medical Branch doxepin 10 2022-0 Yes [id number] 10mg Take 1 [facility] mg capsule 7-07 capsule by ity of 00:00: mouth at [place] [address] bedtime. Medical Branch SERTraline 2022-0 Yes [id number] 25mg Take 1 [facility] 25 mg 7-07 tablet by ity of tablet 00:00: mouth in [place] 00 the Medical morning. Branch tamsulosin 2022-0 Yes [id number] .4mg Take 1 [facility] 0.4 mg 24 7-07 capsule by ity of hr capsule 00:00: mouth in [place] as 00 the Medical morning. Branch docusate 2022-0 Yes [id number] 100mg Take 1 Un javed (COLACE) 7-07 capsule by ity o f 100 mg 00:00: mouth once [place] capsule 00 daily as Medical needed for Branch Constipati on. atorvastati 2022-0 Yes [id number] 40mg Take 1 [facility] n 40 mg 7-07 tablet by ity of tablet 00:00: mouth at [place] 00 bedtime. Medical Branch doxepin 10 0 Yes [id number] 10mg Take 1 [facility] mg capsule 7-07 capsule by ity of 00:00: mouth at [place] 00 bedtime. Medical Branch SERTraline 2022-0 Yes [id number] 25mg Take 1 [facility] 25 mg 7-07 tablet by ity of tablet 00:00: mouth in [place] 00 the Medical morning. Branch tamsulosin 2022-0 Yes [id number] .4mg Take 1 [facility] 0.4 mg 24 7-07 capsule by ity of hr capsule 00:00: mouth in [facility] as 00 the Medical morning. Branch docusate 2022-0 Yes [id number] 100mg Take 1 Un javed (COLACE) 7-07 capsule by ity o f 100 mg 00:00: mouth once [place] capsule 00 daily as Medical needed for Branch Constipati on. atorvastati 2022-0 Yes [id number] 40mg Take 1 [facility] n 40 mg 7-07 tablet by ity of tablet 00:00: mouth at [place] 00 bedtime. Medical Branch doxepin 10 2022-0 Yes [id number] 10mg Take 1 [facility] mg capsule 7-07 capsule by ity of 00:00: mouth at [place] 00 bedtime. Medical Branch SERTraline 2022-0 Yes [id number] 25mg Take 1 [facility] 25 mg 7-07 tablet by ity of tablet 00:00: mouth in [place] 00 the Medical morning. Branch tamsulosin 2022-0 Yes [id number] .4mg Take 1 [facility] 0.4 mg 24 7-07 capsule by ity of hr capsule 00:00: mouth in [place] as 00 the Medical morning. Branch docusate 2022-0 Yes [id number] 100mg Take 1 Un javed (COLACE) 7-07 capsule by ity o f 100 mg 00:00: mouth once [place] capsule 00 daily as Medical needed for Branch Constipati on. atorvastati 2022-0 Yes [id number] 40mg Take 1 [facility] n 40 mg 7-07 tablet by ity of tablet 00:00: mouth at [place] 00 bedtime. Medical Branch doxepin 10 2022-0 Yes [id number] 10mg Take 1 [facility] mg capsule 7-07 capsule by ity of 00:00: mouth at [place] 00 bedtime. Medical Branch SERTraline 2022-0 Yes [id number] 25mg Take 1 [facility] 25 mg 7-07 tablet by ity of tablet 00:00: mouth in [place] 00 the Medical morning. Branch tamsulosin 2022-0 Yes [id number] .4mg Take 1 [facility] 0.4 mg 24 7-07 capsule by ity of hr capsule 00:00: mouth in [place] as 00 the Medical morning. Branch docusate 2022-0 Yes [id number] 100mg Take 1 Un javed (COLACE) 7-07 capsule by ity o f 100 mg 00:00: mouth once [place] capsule 00 daily as Medical needed for Branch Constipati on. atorvastati 2022-0 Yes [id number] 40mg Take 1 [facility] n 40 mg 7-07 tablet by ity of tablet 00:00: mouth at [place] 00 bedtime. Medical Branch doxepin 10 2022-0 Yes [id number] 10mg Take 1 [facility] mg capsule 7-07 capsule by ity of 00:00: mouth at [place] 00 bedtime. Medical Branch SERTraline 2022-0 Yes [id number] 25mg Take 1 [facility] 25 mg 7-07 tablet by ity of tablet 00:00: mouth in [place] 00 the Medical morning. Branch tamsulosin 2022-0 Yes [id number] .4mg Take 1 [facility] 0.4 mg 24 7-07 capsule by ity of hr capsule 00:00: mouth in [place] as 00 the Medical morning. Branch docusate 2022-0 Yes [id number] 100mg Take 1 Un javed (COLACE) 7-07 capsule by ity o f 100 mg 00:00: mouth once [place] capsule 00 daily as Medical needed for Branch Constipati on. atorvastati 2022-0 Yes [id number] 40mg Take 1 [facility] n 40 mg 7-07 tablet by ity of tablet 00:00: mouth at [place] 00 bedtime. Medical Branch doxepin 10 2022-0 Yes [id number] 10mg Take 1 [facility] mg capsule 7-07 capsule by ity of 00:00: mouth at [place] 00 bedtime. Medical Branch SERTraline 2022-0 Yes [id number] 25mg Take 1 [facility] 25 mg 7-07 tablet by ity of tablet 00:00: mouth in [place] 00 the Medical morning. Branch tamsulosin 2022-0 Yes [id number] .4mg Take 1 [facility] 0.4 mg 24 7-07 capsule by ity of hr capsule 00:00: mouth in [facility] as 00 the Medical morning. Branch docusate 2022-0 Yes [id number] 100mg Take 1 Un javed (COLACE) 7-07 capsule by ity o f 100 mg 00:00: mouth once [place] capsule 00 daily as Medical needed for Branch Constipati on. atorvastati 2022-0 Yes [id number] 40mg Take 1 [facility] n 40 mg 7-07 tablet by ity of tablet 00:00: mouth at [place] 00 bedtime. Medical Branch doxepin 10 2022-0 Yes [id number] 10mg Take 1 [facility] mg capsule 7-07 capsule by ity of 00:00: mouth at [place] 00 bedtime. Medical Branch SERTraline 2022-0 Yes [id number] 25mg Take 1 [facility] 25 mg 7-07 tablet by ity of tablet 00:00: mouth in [place] 00 the Medical morning. Branch tamsulosin 2022-0 Yes [id number] .4mg Take 1 [facility] 0.4 mg 24 7-07 capsule by ity of hr capsule 00:00: mouth in [place] as 00 the Medical morning. Branch docusate 2022-0 Yes [id number] 100mg Take 1 Un javed (COLACE) 7-07 capsule by ity o f 100 mg 00:00: mouth once [place] capsule 00 daily as Medical needed for Branch Constipati on. atorvastati 2022-0 Yes [id number] 40mg Take 1 [facility] n 40 mg 7-07 tablet by ity of tablet 00:00: mouth at [place] 00 bedtime. Medical Branch doxepin 10 2022-0 Yes [id number] 10mg Take 1 [facility] mg capsule 7-07 capsule by ity of 00:00: mouth at [place] [address] bedtime. Medical Branch SERTraline 2022-0 Yes [id number] 25mg Take 1 [facility] 25 mg 7-07 tablet by ity of tablet 00:00: mouth in [place] 00 the Medical morning. Branch tamsulosin 0 Yes [id number] .4mg Take 1 [facility] 0.4 mg 24 7-07 capsule by ity of hr capsule 00:00: mouth in [facility] as 00 the Medical morning. Branch docusate 2022-0 Yes [id number] 100mg Take 1 Un javed (COLACE) 7-07 capsule by ity o f 100 mg 00:00: mouth once [place] capsule 00 daily as Medical needed for Branch Constipati on. atorvastati 0 Yes [id number] 40mg Take 1 [facility] n 40 mg 7-07 tablet by ity of tablet 00:00: mouth at [place] [address] bedtime. Medical Branch doxepin 10 0 Yes [id number] 10mg Take 1 [facility] mg capsule 7-07 capsule by ity of 00:00: mouth at [place] [address] bedtime. Medical Branch SERTraline 2022-0 Yes [id number] 25mg Take 1 [facility] 25 mg 7-07 tablet by ity of tablet 00:00: mouth in [place] 00 the Medical morning. Branch tamsulosin 2022-0 Yes [id number] .4mg Take 1 [facility] 0.4 mg 24 7-07 capsule by ity of hr capsule 00:00: mouth in [facility] as 00 the Medical morning. Branch docusate 2022-0 Yes [id number] 100mg Take 1 Un javed (COLACE) 7-07 capsule by ity o f 100 mg 00:00: mouth once [place] capsule 00 daily as Medical needed for Branch Constipati on. atorvastati 2022-0 Yes [id number] 40mg Take 1 [facility] n 40 mg 7-07 tablet by ity of tablet 00:00: mouth at [place] [address] bedtime. Medical Branch doxepin 10 2022-0 Yes [id number] 10mg Take 1 [facility] mg capsule 7-07 capsule by ity of 00:00: mouth at [place] 00 bedtime. Medical Branch SERTraline 2022-0 Yes [id number] 25mg Take 1 [facility] 25 mg 7-07 tablet by ity of tablet 00:00: mouth in [place] 00 the Medical morning. Branch tamsulosin 2022-0 Yes [id number] .4mg Take 1 [facility] 0.4 mg 24 7-07 capsule by ity of hr capsule 00:00: mouth in [facility] as 00 the Medical morning. Branch docusate 2022-0 Yes [id number] 100mg Take 1 Un javed (COLACE) 7-07 capsule by ity o f 100 mg 00:00: mouth once [place] capsule 00 daily as Medical needed for Branch Constipati on. atorvastati 2022-0 Yes [id number] 40mg Take 1 [facility] n 40 mg 7-07 tablet by ity of tablet 00:00: mouth at [place] [address] bedtime. Medical Branch doxepin 10 2022-0 Yes [id number] 10mg Take 1 [facility] mg capsule 7-07 capsule by ity of 00:00: mouth at [place] [address] bedtime. Medical Branch SERTraline 2022-0 Yes [id number] 25mg Take 1 [facility] 25 mg 7-07 tablet by ity of tablet 00:00: mouth in [place] 00 the Medical morning. Branch tamsulosin 2022-0 Yes [id number] .4mg Take 1 [facility] 0.4 mg 24 7-07 capsule by ity of hr capsule 00:00: mouth in [facility] as 00 the Medical morning. Branch docusate 2022-0 Yes [id number] 100mg Take 1 Un javed (COLACE) 7-07 capsule by ity o f 100 mg 00:00: mouth once [place] capsule 00 daily as Medical needed for Branch Constipati on. atorvastati 2022-0 Yes [id number] 40mg Take 1 [facility] n 40 mg 7-07 tablet by ity of tablet 00:00: mouth at [place] 00 bedtime. Medical Branch doxepin 10 2022-0 Yes [id number] 10mg Take 1 [facility] mg capsule 7-07 capsule by ity of 00:00: mouth at [place] 00 bedtime. Medical Branch SERTraline 2022-0 Yes [id number] 25mg Take 1 [facility] 25 mg 7-07 tablet by ity of tablet 00:00: mouth in [place] 00 the Medical morning. Branch tamsulosin 2022-0 Yes [id number] .4mg Take 1 [facility] 0.4 mg 24 7-07 capsule by ity of hr capsule 00:00: mouth in [place] as 00 the Medical morning. Branch docusate 2022-0 Yes [id number] 100mg Take 1 Un javed (COLACE) 7-07 capsule by ity o f 100 mg 00:00: mouth once [place] capsule 00 daily as Medical needed for Branch Constipati on. atorvastati 2022-0 Yes [id number] 40mg Take 1 [facility] n 40 mg 7-07 tablet by ity of tablet 00:00: mouth at [place] 00 bedtime. Medical Branch doxepin 10 2022-0 Yes [id number] 10mg Take 1 [facility] mg capsule 7-07 capsule by ity of 00:00: mouth at [place] 00 bedtime. Medical Branch SERTraline 2022-0 Yes [id number] 25mg Take 1 [facility] 25 mg 7-07 tablet by ity of tablet 00:00: mouth in [place] 00 the Medical morning. Branch tamsulosin 2022-0 Yes [id number] .4mg Take 1 [facility] 0.4 mg 24 7-07 capsule by ity of hr capsule 00:00: mouth in [facility] as 00 the Medical morning. Branch docusate 2022-0 Yes [id number] 100mg Take 1 Un javed (COLACE) 7-07 capsule by ity o f 100 mg 00:00: mouth once [place] capsule 00 daily as Medical needed for Branch Constipati on. atorvastati 2022-0 Yes [id number] 40mg Take 1 [facility] n 40 mg 7-07 tablet by ity of tablet 00:00: mouth at [place] 00 bedtime. Medical Branch doxepin 10 2022-0 Yes [id number] 10mg Take 1 [facility] mg capsule 7-07 capsule by ity of 00:00: mouth at [place] 00 bedtime. Medical Branch SERTraline 2022-0 Yes [id number] 25mg Take 1 [facility] 25 mg 7-07 tablet by ity of tablet 00:00: mouth in [place] 00 the Medical morning. Branch tamsulosin 2022-0 Yes [id number] .4mg Take 1 [facility] 0.4 mg 24 7-07 capsule by ity of hr capsule 00:00: mouth in [place] as 00 the Medical morning. Branch docusate 2022-0 Yes [id number] 100mg Take 1 Un javed (COLACE) 7-07 capsule by ity o f 100 mg 00:00: mouth once [place] capsule 00 daily as Medical needed for Branch Constipati on. atorvastati 2022-0 Yes [id number] 40mg Take 1 [facility] n 40 mg 7-07 tablet by ity of tablet 00:00: mouth at [place] 00 bedtime. Medical Branch doxepin 10 2022-0 Yes [id number] 10mg Take 1 [facility] mg capsule 7-07 capsule by ity of 00:00: mouth at [place] 00 bedtime. Medical Branch SERTraline 2022-0 Yes [id number] 25mg Take 1 [facility] 25 mg 7-07 tablet by ity of tablet 00:00: mouth in [place] 00 the Medical morning. Branch tamsulosin 2022-0 Yes [id number] .4mg Take 1 [facility] 0.4 mg 24 7-07 capsule by ity of hr capsule 00:00: mouth in [facility] as 00 the Medical morning. Branch docusate 2022-0 Yes [id number] 100mg Take 1 Un javed (COLACE) 7-07 capsule by ity o f 100 mg 00:00: mouth once [place] capsule 00 daily as Medical needed for Branch Constipati on. doxepin 10 2022-0 Yes [id number] 10mg Take 1 [facility] mg capsule 7-07 capsule by ity of 00:00: mouth at [place] 00 bedtime. Medical Branch SERTraline 2022-0 Yes [id number] 25mg Take 1 [facility] 25 mg 7-07 tablet by ity of tablet 00:00: mouth in [place] 00 the Medical morning. Branch tamsulosin 2022-0 Yes [id number] .4mg Take 1 [facility] 0.4 mg 24 7-07 capsule by ity of hr capsule 00:00: mouth in [place] as 00 the Medical morning. Branch doxepin 10 2022-0 Yes [id number] 10mg Take 1 [facility] mg capsule 7-07 capsule by ity of 00:00: mouth at [place] [address] bedtime. Medical Branch SERTraline 2022-0 Yes [id number] 25mg Take 1 [facility] 25 mg 7-07 tablet by ity of tablet 00:00: mouth in [place] 00 the Medical morning. Branch tamsulosin 2022-0 Yes [id number] .4mg Take 1 [facility] 0.4 mg 24 7-07 capsule by ity of hr capsule 00:00: mouth in [facility] as 00 the Medical morning. Branch doxepin 10 2022-0 Yes [id number] 10mg Take 1 [facility] mg capsule 7-07 capsule by ity of 00:00: mouth at [place] [address] bedtime. Medical Branch SERTraline 3-0 Yes [id number] 25mg Take 1 [facility] 25 mg 7-07 tablet by ity of tablet 00:00: mouth in [place] 00 the Medical morning. Branch tamsulosin 2022-0 Yes [id number] .4mg Take 1 [facility] 0.4 mg 24 7-07 capsule by ity of hr capsule 00:00: mouth in [facility] as 00 the Medical morning. Branch doxepin 10 2022-0 Yes [id number] 10mg Take 1 [facility] mg capsule 7-07 capsule by ity of 00:00: mouth at [place] [address] bedtime. Medical Branch SERTraline 3-0 Yes [id number] 25mg Take 1 [facility] 25 mg 7-07 tablet by ity of tablet 00:00: mouth in [place] 00 the Medical morning. Branch tamsulosin 2022-0 Yes [id number] .4mg Take 1 [facility] 0.4 mg 24 7-07 capsule by ity of hr capsule 00:00: mouth in [facility] as 00 the Medical morning. Branch doxepin 10 2022-0 Yes [id number] 10mg Take 1 [facility] mg capsule 7-07 capsule by ity of 00:00: mouth at [place] [address] bedtime. Medical Branch SERTraline 3-0 Yes [id number] 25mg Take 1 [facility] 25 mg 7-07 tablet by ity of tablet 00:00: mouth in [place] 00 the Medical morning. Branch tamsulosin 2022-0 Yes [id number] .4mg Take 1 [facility] 0.4 mg 24 7-07 capsule by ity of hr capsule 00:00: mouth in [facility] as 00 the Medical morning. Branch doxepin 10 2022-0 Yes [id number] 10mg Take 1 [facility] mg capsule 7-07 capsule by ity of 00:00: mouth at [place] [address] bedtime. Medical Branch SERTraline 3-0 Yes [id number] 25mg Take 1 [facility] 25 mg 7-07 tablet by ity of tablet 00:00: mouth in [place] 00 the Medical morning. Branch tamsulosin 3-0 Yes [id number] .4mg Take 1 [facility] 0.4 mg 24 7-07 capsule by ity of hr capsule 00:00: mouth in [facility] as 00 the Medical morning. Branch doxepin 10 2022-0 Yes [id number] 10mg Take 1 [facility] mg capsule 7-07 capsule by ity of 00:00: mouth at [place] [address] bedtime. Medical Branch SERTraline 3-0 Yes [id number] 25mg Take 1 [facility] 25 mg 7-07 tablet by ity of tablet 00:00: mouth in [place] 00 the Medical morning. Branch tamsulosin 2022-0 Yes [id number] .4mg Take 1 [facility] 0.4 mg 24 7-07 capsule by ity of hr capsule 00:00: mouth in [facility] as the Medical morning. Branch doxepin 10 2022-0 Yes [id number] 10mg Take 1 [facility] mg capsule 7-07 capsule by ity of 00:00: mouth at [place] [address] bedtime. Medical Branch SERTraline 3-0 Yes [id number] 25mg Take 1 [facility] 25 mg 7-07 tablet by ity of tablet 00:00: mouth in [place] 00 the Medical morning. Branch tamsulosin 2022-0 Yes [id number] .4mg Take 1 [facility] 0.4 mg 24 7-07 capsule by ity of hr capsule 00:00: mouth in [facility] as 00 the Medical morning. Branch doxepin 10 2022-0 Yes [id number] 10mg Take 1 [facility] mg capsule 7-07 capsule by ity of 00:00: mouth at [place] [address] bedtime. Medical Branch SERTraline 3-0 Yes [id number] 25mg Take 1 [facility] 25 mg 7-07 tablet by ity of tablet 00:00: mouth in [place] 00 the Medical morning. Branch tamsulosin 2022-0 Yes [id number] .4mg Take 1 [facility] 0.4 mg 24 7-07 capsule by ity of hr capsule 00:00: mouth in [facility] as 00 the Medical morning. Branch doxepin 10 2022-0 Yes [id number] 10mg Take 1 [facility] mg capsule 7-07 capsule by ity of 00:00: mouth at [place] [address] bedtime. Medical Branch SERTraline 3-0 Yes [id number] 25mg Take 1 [facility] 25 mg 7-07 tablet by ity of tablet 00:00: mouth in [place] 00 the Medical morning. Branch tamsulosin 3-0 Yes [id number] .4mg Take 1 [facility] 0.4 mg 24 7-07 capsule by ity of hr capsule 00:00: mouth in [facility] as 00 the Medical morning. Branch doxepin 10 3-0 Yes [id number] 10mg Take 1 [facility] mg capsule 7-07 capsule by ity of 00:00: mouth at [place] 00 bedtime. Medical Branch SERTraline 3-0 Yes [id number] 25mg Take 1 [facility] 25 mg 7-07 tablet by ity of tablet 00:00: mouth in [place] 00 the Medical morning. Branch tamsulosin 3-0 Yes [id number] .4mg Take 1 [facility] 0.4 mg 24 7-07 capsule by ity of hr capsule 00:00: mouth in [facility] as 00 the Medical morning. Branch doxepin 10 3-0 Yes [id number] 10mg Take 1 [facility] mg capsule 7-07 capsule by ity of 00:00: mouth at [place] 00 bedtime. Medical Branch SERTraline 3-0 Yes [id number] 25mg Take 1 [facility] 25 mg 7-07 tablet by ity of tablet 00:00: mouth in [place] 00 the Medical morning. Branch tamsulosin 3-0 Yes [id number] .4mg Take 1 [facility] 0.4 mg 24 7-07 capsule by ity of hr capsule 00:00: mouth in [facility] as 00 the Medical morning. Branch doxepin 10 3-0 Yes [id number] 10mg Take 1 [facility] mg capsule 7-07 capsule by ity of 00:00: mouth at [place] 00 bedtime. Medical Branch SERTraline 3-0 Yes [id number] 25mg Take 1 [facility] 25 mg 7-07 tablet by ity of tablet 00:00: mouth in [place] 00 the Medical morning. Branch tamsulosin 3-0 Yes [id number] .4mg Take 1 [facility] 0.4 mg 24 7-07 capsule by ity of hr capsule 00:00: mouth in [facility] as 00 the Medical morning. Branch tamsulosin 3-0 Yes [id number] .4mg Take 1 [facility] 0.4 mg 24 7-07 capsule by ity of hr capsule 00:00: mouth in [facility] as 00 the Medical morning. Branch tamsulosin 2023-0 Yes [id number] .4mg Take 1 [facility] 0.4 mg 24 7-07 capsule by ity of hr capsule 00:00: mouth in [place] as 00 the Medical morning. Branch tamsulosin 2023-0 Yes [id number] .4mg Take 1 [facility] 0.4 mg 24 7-07 capsule by ity of hr capsule 00:00: mouth in [place] as 00 the Medical morning. Branch tamsulosin 2023-0 Yes [id number] .4mg Take 1 [facility] 0.4 mg 24 7-07 capsule by ity of hr capsule 00:00: mouth in [place] as 00 the Medical morning. Branch tamsulosin 2023-0 Yes [id number] .4mg Take 1 [facility] 0.4 mg 24 7-07 capsule by ity of hr capsule 00:00: mouth in [place] as 00 the Medical morning. Branch tamsulosin 2023-0 Yes [id number] .4mg Take 1 [facility] 0.4 mg 24 7-07 capsule by ity of hr capsule 00:00: mouth in [place] as 00 the Medical morning. Branch tamsulosin 2023-0 Yes [id number] .4mg Take 1 [facility] 0.4 mg 24 7-07 capsule by ity of hr capsule 00:00: mouth in [place] as 00 the Medical morning. Branch tamsulosin 2023-0 Yes [id number] .4mg Take 1 [facility] 0.4 mg 24 7-07 capsule by ity of hr capsule 00:00: mouth in [place] as 00 the Medical morning. Branch tamsulosin 2023-0 Yes [id number] .4mg Take 1 [facility] 0.4 mg 24 7-07 capsule by ity of hr capsule 00:00: mouth in [place] as 00 the Medical morning. Branch tamsulosin 2023-0 Yes [id number] .4mg Take 1 [facility] 0.4 mg 24 7-07 capsule by ity of hr capsule 00:00: mouth in [place] as 00 the Medical morning. Branch tamsulosin 2023-0 Yes [id number] .4mg Take 1 [facility] 0.4 mg 24 7-07 capsule by ity of hr capsule 00:00: mouth in [place] as 00 the Medical morning. Branch tamsulosin 2023-0 Yes [id number] .4mg Take 1 [facility] 0.4 mg 24 7-07 capsule by ity of hr capsule 00:00: mouth in [facility] as 00 the Medical morning. Branch tamsulosin Yes [id number] .4mg Take 1 [facility] 0.4 mg 24 04-05 capsule by ity of hr capsule 00:00: mouth in [facility] as 00 the Medical morning. Branch doxepin 10 2022- No [id number] 10mg Take 1 [facility] mg capsule 04-05 capsule by it y of 00:00: 00:00 mouth at [place] 00 :00 bedtime. Medical Branch SERTraline 2022- No [id number] 25mg Take 1 [facility] 25 mg 04-05 tablet by ity of tablet 00:00: 00:00 mouth in [place] 00 :00 the Medical morning. Branch doxepin 10 2022- No [id number] 10mg Take 1 [facility] mg capsule 04-05 capsule by it y of 00:00: 00:00 mouth at [place] 00 :00 bedtime. Medical Branch SERTraline 2022- No [id number] 25mg Take 1 [facility] 25 mg 04-05 tablet by ity of tablet 00:00: 00:00 mouth in [place] 00 :00 the Medical morning. Branch atorvastati 2022- No [id number] 40mg Take 1 [facility] n 40 mg 04-05 tablet by ity of tablet 00:00: 00:00 mouth at [place] 00 :00 bedtime. Medical Branch docusate 2022- No [id number] 100mg Take 1 [facility] (COLACE) 04-05 capsule by [facility]y of 100 mg 00:00: 00:00 mouth once [place] capsule 00 :00 daily as Medical needed for Branch Constipati on. atorvastati 2022- No [id number] 40mg Take 1 [facility] n 40 mg 04-05 tablet by ity of tablet 00:00: 00:00 mouth at [place] 00 :00 bedtime. Medical Branch docusate 2022- No [id number] 100mg Take 1 [facility] (COLACE) 04-05 capsule by ity of 100 mg 00:00: 00:00 mouth once [place] capsule 00 :00 daily as Medical needed for Branch Constipati on. famotidine 2023-0 Yes [id number] 20mg Take 1 [facility] 20 mg 7-05 tablet by [facility] of tablet 00:00: mouth in [place] 00 the Medical morning. Branch NIFEdipine 3-0 Yes [id number] 60mg Take 1 [facility] nivers XL 60 mg 24 7-05 tablet by ity of hr tablet 00:00: mouth in [facility] the Medical morning. Branch famotidine 3-0 Yes [id number] 20mg Take 1 [facility] 20 mg 7-05 tablet by [facility] of tablet 00:00: mouth in [place] the Medical morning. Branch NIFEdipine 3-0 Yes [id number] 60mg Take 1 [facility] n[facility] XL 60 mg 24 7-05 tablet by ity of hr tablet 00:00: mouth in [facility] the Medical morning. Branch levoFLOXaci 3-0 Yes [id number] 750mg Take 1 [facility] n 750 mg 7-05 9100 tablet by ity of tablet 00:00: mouth [place] 00 every 24 Medical (twenty-fo Branch ur) hours. famotidine 3-0 Yes [id number] 20mg Take 1 [facility] 20 mg 7-05 tablet by [facility] of tablet 00:00: mouth in [place] the Medical morning. Branch NIFEdipine 2022-0 Yes [id number] 60mg Take 1 [facility] XL 60 mg 24 7-05 tablet by ity of hr tablet 00:00: mouth in [facility] the Medical morning. Branch levoFLOXaci 3-0 Yes [id number] 750mg Take 1 [facility] n 750 mg 7-05 9100 tablet by it[facility] of tablet 00:00: mouth [place] 00 every 24 Medical (twenty-fo Branch ur) hours. famotidine 3-0 Yes [id number] 20mg Take 1 [facility] 20 mg 7-05 tablet by [facility] of tablet 00:00: mouth in [place] 00 the Medical morning. Branch NIFEdipine 3-0 Yes [id number] 60mg Take 1 [facility] XL 60 mg 24 7-05 tablet by [facility]y of hr tablet 00:00: mouth in [facility] the Medical morning. Branch levoFLOXaci 2023-0 Yes [id number] 750mg Take 1 [facility] n 750 mg 7-05 9100 tablet by ity of tablet 00:00: mouth [place] 00 every 24 Medical (twenty-fo Branch ur) hours. famotidine 2023-0 Yes [id number] 20mg Take 1 [facility] 20 mg 7-05 tablet by [facility] of tablet 00:00: mouth in [place] 00 the Medical morning. Branch NIFEdipine 3-0 Yes [id number] 60mg Take 1 [facility] XL 60 mg 24 7-05 tablet by [facility]y of hr tablet 00:00: mouth in [facility] 00 the Medical morning. Branch levoFLOXaci 3-0 Yes [id number] 750mg Take 1 [facility] n 750 mg 7-05 9100 tablet by ity of tablet 00:00: mouth [place] 00 every 24 Medical ( [place] ur) hours. famotidine 2023-0 Yes [id number] 20mg Take 1 [facility] 20 mg 7-05 tablet by ity of tablet 00:00: mouth in [place] 00 the Medical morning. Branch NIFEdipine 3-0 Yes [id number] 60mg Take 1 [facility] XL 60 mg 24 7-05 tablet by [facility] of hr tablet 00:00: mouth in [facility] the Medical morning. Branch levoFLOXaci 3-0 Yes [id number] 750mg Take 1 [facility] n 750 mg 7-05 9100 tablet by ity of tablet 00:00: mouth [place] 00 every 24 Medical ( [place] ur) hours. famotidine 3-0 Yes [id number] 20mg Take 1 [facility] 20 mg 7-05 tablet by it[facility] of tablet 00:00: mouth in [place] 00 the Medical morning. Branch NIFEdipine 3-0 Yes [id number] 60mg Take 1 [facility] XL 60 mg 24 7-05 tablet by [facility]y of hr tablet 00:00: mouth in [facility] the Medical morning. Branch famotidine 3-0 Yes [id number] 20mg Take 1 [facility] 20 mg 7-05 tablet by [facility] of tablet 00:00: mouth in [place] 00 the Medical morning. Branch NIFEdipine 3-0 Yes [id number] 60mg Take 1 [facility] XL 60 mg 24 7-05 tablet by [facility]y of hr tablet 00:00: mouth in [facility] 00 the Medical morning. Branch levoFLOXaci 2023-0 Yes [id number] 750mg Take 1 [facility] n 750 mg 7-05 9100 tablet by ity of tablet 00:00: mouth [place] 00 every 24 Medical ( [place] ur) hours. famotidine 2023-0 Yes [id number] 20mg Take 1 [facility] 20 mg 7-05 tablet by [facility] of tablet 00:00: mouth in [place] 00 the Medical morning. Branch NIFEdipine 3-0 Yes [id number] 60mg Take 1 [facility] XL 60 mg 24 7-05 tablet by [facility] hr tablet 00:00: [facility] Branch levoFLOXaci 3-0 Yes [id number] 750mg Take 1 [facility] n 750 mg 7-05 9100 tablet by ity of tablet 00:00: mouth [place] 00 every 24 Medical (twenty-fo Branch ur) hours. famotidine 2023-0 Yes [id number] 20mg Take 1 [facility] 20 mg 7-05 tablet by [facility] of tablet 00:00: mouth in [place] 00 the Medical morning. Branch NIFEdipine 2022-0 Yes [id number] 60mg Take 1 [facility] XL 60 mg 24 7-05 tablet by [facility]y of hr tablet 00:00: mouth in [facility] the Medical morning. Branch levoFLOXaci 3-0 Yes [id number] 750mg Take 1 [facility] n 750 mg 7-05 9100 tablet by ity of tablet 00:00: mouth [place] 00 every 24 Medical (twenty-fo Branch ur) hours. famotidine 3-0 Yes [id number] 20mg Take 1 [facility] 20 mg 7-05 tablet by [facility] of tablet 00:00: mouth in [place] 00 the Medical morning. Branch NIFEdipine 3-0 Yes [id number] 60mg Take 1 [facility] XL 60 mg 24 7-05 tablet by [facility] of hr tablet 00:00: mouth in [facility] 00 the Medical morning. Branch levoFLOXaci 3-0 Yes [id number] 750mg Take 1 [facility] n 750 mg 7-05 9100 tablet by [facility] of tablet 00:00: mouth [place] 00 every 24 Medical (twenty-fo Branch ur) hours. famotidine 2023-0 Yes [id number] 20mg Take 1 [facility] 20 mg 7-05 tablet by [facility] of tablet 00:00: mouth in [place] 00 the Medical morning. Branch NIFEdipine 3-0 Yes [id number] 60mg Take 1 [facility] XL 60 mg 24 7-05 tablet by [facility] of hr tablet 00:00: mouth in [facility] 00 the Medical morning. Branch levoFLOXaci 2023-0 Yes [id number] 750mg Take 1 [facility] n 750 mg 7-05 9100 tablet by it[facility] of tablet 00:00: mouth [place] 00 every 24 Medical (twenty- Branch ur) hours. famotidine 2023-0 Yes [id number] 20mg Take 1 [facility] 20 mg 7-05 tablet by [facility] of tablet 00:00: mouth in [place] 00 the Medical morning. Branch NIFEdipine 3-0 Yes [id number] 60mg Take 1 [facility] XL 60 mg 24 7-05 tablet by [facility] hr tablet 00:00: mouth [place] 00 the Medical morning. Branch levoFLOXaci 3-0 Yes [id number] 750mg Take 1 [facility] n 750 mg 7-05 9100 tablet by [facility] of tablet 00:00: mouth [place] 00 every 24 Medical (twenty- Branch ur) hours. famotidine 2023-0 Yes [id number] 20mg Take 1 [facility] 20 mg 7-05 tablet by [facility] of tablet 00:00: mouth in [place] 00 the Medical morning. Branch NIFEdipine 2022-0 Yes [id number] 60mg Take 1 [facility] XL 60 mg 24 7-05 tablet by [facility] hr tablet 00:00: mouth [place] 00 the Medical morning. Branch levoFLOXaci 3-0 Yes [id number] 750mg Take 1 [facility] n 750 mg 7-05 9100 tablet by it[facility] of tablet 00:00: mouth [place] 00 every 24 Medical (twenty-fo Branch ur) hours. famotidine 2023-0 Yes [id number] 20mg Take 1 [facility] 20 mg 7-05 tablet by [facility] of tablet 00:00: mouth in [place] 00 the Medical morning. Branch NIFEdipine 3-0 Yes [id number] 60mg Take 1 [facility] XL 60 mg 24 7-05 tablet by [facility] hr tablet 00:00: mouth [place] 00 the Medical morning. Branch levoFLOXaci 2023-0 Yes [id number] 750mg Take 1 [facility] n 750 mg 7-05 9100 tablet by ity of tablet 00:00: mouth [place] 00 every 24 Medical (twenty-fo Branch ur) hours. famotidine 2023-0 Yes [id number] 20mg Take 1 [facility] 20 mg 7-05 tablet by [facility] of tablet 00:00: mouth in [place] 00 the Medical morning. Branch NIFEdipine 3-0 Yes [id number] 60mg Take 1 [facility] XL 60 mg 24 7-05 tablet by [facility] hr tablet 00:00: mouth [place] 00 the Medical morning. Branch levoFLOXaci 2023-0 Yes [id number] 750mg Take 1 [facility] n 750 mg 7-05 9100 tablet by it[facility] of tablet 00:00: mouth [place] 00 every 24 Medical (twenty Branch ur) hours. famotidine 2023-0 Yes [id number] 20mg Take 1 [facility] 20 mg 7-05 tablet by [facility] of tablet 00:00: mouth in [place] 00 the Medical morning. Branch NIFEdipine 3-0 Yes [id number] 60mg Take 1 [facility] n[facility] XL 60 mg 24 7-05 tablet by ity of hr tablet 00:00: mouth in [facility] the Medical morning. Branch levoFLOXaci 3-0 Yes [id number] 750mg Take 1 [facility] n 750 mg 7-05 9100 tablet by ity of tablet 00:00: mouth [place] 00 every 24 Medical (twenty Branch ur) hours. famotidine 2023-0 Yes [id number] 20mg Take 1 [facility] 20 mg 7-05 tablet by it[facility] of tablet 00:00: mouth in [place] 00 the Medical morning. Branch NIFEdipine 3-0 Yes [id number] 60mg Take 1 [facility] n[facility] XL 60 mg 24 7-05 tablet by ity of hr tablet 00:00: mouth in [facility] 00 the Medical morning. Branch levoFLOXaci 3-0 Yes [id number] 750mg Take 1 [facility] n 750 mg 7-05 9100 tablet by ity of tablet 00:00: mouth [place] 00 every 24 Medical (twenty- Branch ur) hours. famotidine 2023-0 Yes [id number] 20mg Take 1 [facility] 20 mg 7-05 tablet by [facility]y of tablet 00:00: mouth in [place] 00 the Medical morning. Branch NIFEdipine 3-0 Yes [id number] 60mg Take 1 [facility] XL 60 mg 24 7-05 tablet by [facility]y of hr tablet 00:00: mouth in [facility] 00 the Medical morning. Branch levoFLOXaci 2023-0 Yes [id number] 750mg Take 1 [facility] n 750 mg 7-05 9100 tablet by ity of tablet 00:00: mouth [place] 00 every 24 Medical (twenty- Branch ur) hours. famotidine 2023-0 Yes [id number] 20mg Take 1 [facility] 20 mg 7-05 tablet by [facility] of tablet 00:00: mouth in [place] 00 the Medical morning. Branch NIFEdipine 3-0 Yes [id number] 60mg Take 1 [facility] XL 60 mg 24 7-05 tablet by [facility] hr tablet 00:00: mouth [place] 00 the Medical morning. Branch levoFLOXaci 3-0 Yes [id number] 750mg Take 1 [facility] n 750 mg 7-05 9100 tablet by ity of tablet 00:00: mouth [place] 00 every 24 Medical (twenty-fo Branch ur) hours. famotidine 3-0 Yes [id number] 20mg Take 1 [facility] 20 mg 7-05 tablet by ity of tablet 00:00: mouth in [place] 00 the Medical morning. Branch NIFEdipine 2022-0 Yes [id number] 60mg Take 1 [facility] XL 60 mg 24 7-05 tablet by [facility] of hr tablet 00:00: [facility] the Medical morning. Branch levoFLOXaci 2022-0 Yes [id number] 750mg Take 1 [facility] n 750 mg 7-05 9100 tablet by ity of tablet 00:00: mouth [place] 00 every 24 Medical (twenty-fo Branch ur) hours. famotidine 3-0 Yes [id number] 20mg Take 1 [facility] 20 mg 7-05 tablet by ity of tablet 00:00: mouth in [place] 00 the Medical morning. Branch NIFEdipine 2022-0 Yes [id number] 60mg Take 1 [facility] n[facility] XL 60 mg 24 7-05 tablet by ity of hr tablet 00:00: mouth in [facility] 00 the Medical morning. Branch levoFLOXaci 3-0 Yes [id number] 750mg Take 1 [facility] n 750 mg 7-05 9100 tablet by ity of tablet 00:00: mouth [place] 00 every 24 Medical (twenty-fo Branch ur) hours. famotidine 3-0 Yes [id number] 20mg Take 1 [facility] 20 mg 7-05 tablet by ity of tablet 00:00: mouth in [place] 00 the Medical morning. Branch NIFEdipine 3-0 Yes [id number] 60mg Take 1 [facility] n[facility] XL 60 mg 24 7-05 tablet by ity of hr tablet 00:00: mouth in [facility] 00 the Medical morning. Branch levoFLOXaci 3-0 Yes [id number] 750mg Take 1 [facility] n 750 mg 7-05 9100 tablet by ity of tablet 00:00: mouth [place] 00 every 24 Medical (twenty- Branch ur) hours. famotidine 2023-0 Yes [id number] 20mg Take 1 [facility] 20 mg 7-05 tablet by ity of tablet 00:00: mouth in [place] 00 the Medical morning. Branch NIFEdipine 3-0 Yes [id number] 60mg Take 1 [facility] n[facility] XL 60 mg 24 7-05 tablet by [facility] of hr tablet 00:00: mouth [facility] the Medical morning. Branch levoFLOXaci 2023-0 Yes [id number] 750mg Take 1 [facility] n 750 mg 7-05 9100 tablet by ity of tablet 00:00: mouth [place] 00 every 24 Medical (twenty- Branch ur) hours. famotidine 2023-0 Yes [id number] 20mg Take 1 [facility] 20 mg 7-05 tablet by ity of tablet 00:00: mouth in [place] 00 the Medical morning. Branch NIFEdipine 3-0 Yes [id number] 60mg Take 1 [facility] n[facility] XL 60 mg 24 7-05 tablet by ity of hr tablet 00:00: mouth in [facility] the Medical morning. Branch levoFLOXaci 3-0 Yes [id number] 750mg Take 1 [facility] n 750 mg 7-05 9100 tablet by ity of tablet 00:00: mouth [place] 00 every 24 Medical (twenty- Branch ur) hours. famotidine 3-0 Yes [id number] 20mg Take 1 [facility] 20 mg 7-05 tablet by ity of tablet 00:00: mouth in [place] 00 the Medical morning. Branch NIFEdipine 3-0 Yes [id number] 60mg Take 1 [facility] nivers XL 60 mg 24 7-05 tablet by ity of hr tablet 00:00: mouth in [facility] 00 the Medical morning. Branch levoFLOXaci 3-0 Yes [id number] 750mg Take 1 [facility] n 750 mg 7-05 9100 tablet by ity of tablet 00:00: mouth [place] 00 every 24 Medical (twenty- Branch ur) hours. famotidine 2023-0 Yes [id number] 20mg Take 1 [facility] 20 mg 7-05 tablet by ity of tablet 00:00: mouth in [place] 00 the Medical morning. Branch NIFEdipine 3-0 Yes [id number] 60mg Take 1 [facility] XL 60 mg 24 7-05 tablet by [facility] hr tablet 00:00: mouth [place] the Medical morning. Branch levoFLOXaci 2023-0 Yes [id number] 750mg Take 1 [facility] n 750 mg 7-05 9100 tablet by ity of tablet 00:00: mouth [place] 00 every 24 Medical (twenty-fo Branch ur) hours. famotidine 2023-0 Yes [id number] 20mg Take 1 [facility] 20 mg 7-05 tablet by ity of tablet 00:00: mouth in [place] 00 the Medical morning. Branch NIFEdipine 2023-0 Yes [id number] 60mg Take 1 [facility] n[facility] XL 60 mg 24 7-05 tablet by ity of hr tablet 00:00: mouth in [facility] the Medical morning. Branch levoFLOXaci 2023-0 Yes [id number] 750mg Take 1 [facility] n 750 mg 7-05 9100 tablet by ity of tablet 00:00: mouth [place] 00 every 24 Medical (twenty-fo Branch ur) hours. famotidine 2023-0 Yes [id number] 20mg Take 1 [facility] 20 mg 7-05 tablet by ity of tablet 00:00: mouth in [place] the Medical morning. Branch NIFEdipine 3-0 Yes [id number] 60mg Take 1 [facility] n[facility] XL 60 mg 24 7-05 tablet by ity of hr tablet 00:00: mouth in [facility] the Medical morning. Branch levoFLOXaci 3-0 Yes [id number] 750mg Take 1 [facility] n 750 mg 7-05 9100 tablet by ity of tablet 00:00: mouth [place] 00 every 24 Medical (twenty-fo Branch ur) hours. famotidine 2023-0 Yes [id number] 20mg Take 1 [facility] 20 mg 7-05 tablet by ity of tablet 00:00: mouth in [place] 00 the Medical morning. Branch NIFEdipine 2023-0 Yes [id number] 60mg Take 1 [facility] n[facility] XL 60 mg 24 7-05 tablet by ity of hr tablet 00:00: mouth in [facility] 00 the Medical morning. Branch levoFLOXaci 2023-0 Yes [id number] 750mg Take 1 [facility] n 750 mg 7-05 9100 tablet by ity of tablet 00:00: mouth [place] 00 every 24 Medical (twenty-fo Branch ur) hours. famotidine 2023-0 Yes [id number] 20mg Take 1 [facility] 20 mg 7-05 tablet by ity of tablet 00:00: mouth in [place] 00 the Medical morning. Branch NIFEdipine 3-0 Yes [id number] 60mg Take 1 [facility] XL 60 mg 24 7-05 tablet by [facility] hr tablet 00:00: mouth [place] 00 the Medical morning. Branch levoFLOXaci 3-0 Yes [id number] 750mg Take 1 [facility] n 750 mg 7-05 9100 tablet by ity of tablet 00:00: mouth [place] 00 every 24 Medical (twenty-fo Branch ur) hours. famotidine 2023-0 Yes [id number] 20mg Take 1 [facility] 20 mg 7-05 tablet by ity of tablet 00:00: mouth in [place] 00 the Medical morning. Branch NIFEdipine 3-0 Yes [id number] 60mg Take 1 [facility] XL 60 mg 24 7-05 tablet by [facility] of hr tablet 00:00: mouth [place] the Medical morning. Branch levoFLOXaci 3-0 Yes [id number] 750mg Take 1 [facility] n 750 mg 7-05 9100 tablet by ity of tablet 00:00: mouth [place] 00 every 24 Medical (twenty-fo Branch ur) hours. famotidine 2023-0 Yes [id number] 20mg Take 1 [facility] 20 mg 7-05 tablet by ity of tablet 00:00: mouth in [place] 00 the Medical morning. Branch NIFEdipine 3-0 Yes [id number] 60mg Take 1 [facility] n[facility] XL 60 mg 24 7-05 tablet by ity of hr tablet 00:00: mouth in [facility] 00 the Medical morning. Branch levoFLOXaci 3-0 Yes [id number] 750mg Take 1 [facility] n 750 mg 7-05 9100 tablet by ity of tablet 00:00: mouth [place] 00 every 24 Medical (twenty-fo Branch ur) hours. famotidine 2023-0 Yes [id number] 20mg Take 1 [facility] 20 mg 7-05 tablet by ity of tablet 00:00: mouth in [place] 00 the Medical morning. Branch NIFEdipine 3-0 Yes [id number] 60mg Take 1 [facility] XL 60 mg 24 7-05 tablet by [facility] hr tablet 00:00: [place] 00 the Medical morning. Branch levoFLOXaci 2023-0 Yes [id number] 750mg Take 1 [facility] n 750 mg 7-05 9100 tablet by ity of tablet 00:00: mouth [place] 00 every 24 Medical (twenty- Branch ur) hours. famotidine 2023-0 Yes [id number] 20mg Take 1 [facility] 20 mg 7-05 tablet by ity of tablet 00:00: mouth in [place] 00 the Medical morning. Branch NIFEdipine 3-0 Yes [id number] 60mg Take 1 [facility] XL 60 mg 24 7-05 tablet by [facility] of hr tablet 00:00: mouth [facility] the Medical morning. Branch levoFLOXaci 2023-0 Yes [id number] 750mg Take 1 [facility] n 750 mg 7-05 9100 tablet by ity of tablet 00:00: mouth [place] 00 every 24 Medical (twenty- Branch ur) hours. famotidine 2023-0 Yes [id number] 20mg Take 1 [facility] 20 mg 7-05 tablet by ity of tablet 00:00: mouth in [place] 00 the Medical morning. Branch NIFEdipine 3-0 Yes [id number] 60mg Take 1 [facility] n[facility] XL 60 mg 24 7-05 tablet by ity of hr tablet 00:00: mouth in [facility] the Medical morning. Branch levoFLOXaci 3-0 Yes [id number] 750mg Take 1 [facility] n 750 mg 7-05 9100 tablet by ity of tablet 00:00: mouth [place] 00 every 24 Medical (twenty- Branch ur) hours. famotidine 2023-0 Yes [id number] 20mg Take 1 [facility] 20 mg 7-05 tablet by ity of tablet 00:00: mouth in [place] 00 the Medical morning. Branch NIFEdipine 3-0 Yes [id number] 60mg Take 1 [facility] n[facility] XL 60 mg 24 7-05 tablet by ity of hr tablet 00:00: mouth in [facility] 00 the Medical morning. Branch levoFLOXaci 2023-0 Yes [id number] 750mg Take 1 [facility] n 750 mg 7-05 9100 tablet by ity of tablet 00:00: mouth [place] 00 every 24 Medical (twenty- Branch ur) hours. famotidine 2023-0 Yes [id number] 20mg Take 1 [facility] 20 mg 7-05 tablet by ity of tablet 00:00: mouth in [place] 00 the Medical morning. Branch NIFEdipine 2023-0 Yes [id number] 60mg Take 1 [facility] n[facility] XL 60 mg 24 7-05 tablet by [facility] hr tablet 00:00: mouth [place] the Medical morning. Branch levoFLOXaci 2023-0 Yes [id number] 750mg Take 1 [facility] n 750 mg 7-05 9100 tablet by ity of tablet 00:00: mouth [place] 00 every 24 Medical ( Branch ur) hours. famotidine 2023-0 Yes [id number] 20mg Take 1 [facility] 20 mg 7-05 tablet by ity of tablet 00:00: mouth in [place] 00 the Medical morning. Branch NIFEdipine 3-0 Yes [id number] 60mg Take 1 [facility] nivers XL 60 mg 24 7-05 tablet by ity of hr tablet 00:00: mouth in [facility] the Medical morning. Branch levoFLOXaci 2023-0 Yes [id number] 750mg Take 1 [facility] n 750 mg 7-05 9100 tablet by ity of tablet 00:00: mouth [place] 00 every 24 Medical ( Branch ur) hours. famotidine 2023-0 Yes [id number] 20mg Take 1 [facility] 20 mg 7-05 tablet by ity of tablet 00:00: mouth in [place] the Medical morning. Branch NIFEdipine 3-0 Yes [id number] 60mg Take 1 [facility] nivers XL 60 mg 24 7-05 tablet by ity of hr tablet 00:00: mouth in [facility] the Medical morning. Branch levoFLOXaci 3-0 Yes [id number] 750mg Take 1 [facility] n 750 mg 7-05 9100 tablet by ity of tablet 00:00: mouth [place] 00 every 24 Medical ( Branch ur) hours. famotidine 2023-0 Yes [id number] 20mg Take 1 [facility] 20 mg 7-05 tablet by ity of tablet 00:00: mouth in [place] 00 the Medical morning. Branch NIFEdipine 3-0 Yes [id number] 60mg Take 1 [facility] nivers XL 60 mg 24 7-05 tablet by ity of hr tablet 00:00: mouth in [facility] the Medical morning. Branch levoFLOXaci 2023-0 Yes [id number] 750mg Take 1 [facility] n 750 mg 7-05 9100 tablet by ity of tablet 00:00: mouth [place] 00 every 24 Medical (twenty Branch ur) hours. famotidine 2023-0 Yes [id number] 20mg Take 1 [facility] 20 mg 7-05 tablet by ity of tablet 00:00: mouth in [place] 00 the Medical morning. Branch NIFEdipine 3-0 Yes [id number] 60mg Take 1 [facility] n[facility] XL 60 mg 24 7-05 tablet by [facility] of hr tablet 00:00: mouth [place] 00 the Medical morning. Branch levoFLOXaci 3-0 Yes [id number] 750mg Take 1 [facility] n 750 mg 7-05 9100 tablet by ity of tablet 00:00: mouth [place] 00 every 24 Medical (twenty- [place] ur) hours. famotidine 2023-0 Yes [id number] 20mg Take 1 [facility] 20 mg 7-05 tablet by ity of tablet 00:00: mouth in [place] 00 the Medical morning. Branch NIFEdipine 3-0 Yes [id number] 60mg Take 1 [facility] XL 60 mg 24 7-05 tablet by [facility] hr tablet 00:00: mouth [place] the Medical morning. Branch levoFLOXaci 3-0 Yes [id number] 750mg Take 1 [facility] n 750 mg 7-05 9100 tablet by ity of tablet 00:00: mouth [place] 00 every 24 Medical (twenty-fo [place] ur) hours. famotidine 2023-0 Yes [id number] 20mg Take 1 [facility] 20 mg 7-05 tablet by ity of tablet 00:00: mouth in [place] 00 the Medical morning. Branch NIFEdipine 3-0 Yes [id number] 60mg Take 1 [facility] XL 60 mg 24 7-05 tablet by [facility] of hr tablet 00:00: mouth in [place] 00 the Medical morning. Branch levoFLOXaci 3-0 Yes [id number] 750mg Take 1 [facility] n 750 mg 7-05 9100 tablet by ity of tablet 00:00: mouth [place] 00 every 24 Medical (twenty-fo [place] ur) hours. famotidine 2023-0 Yes [id number] 20mg Take 1 [facility] 20 mg 7-05 tablet by ity of tablet 00:00: mouth in [place] 00 the Medical morning. Branch NIFEdipine 3-0 Yes [id number] 60mg Take 1 [facility] XL 60 mg 24 7-05 tablet by [facility] of hr tablet 00:00: mouth in [place] 00 the Medical morning. Branch levoFLOXaci 3-0 Yes [id number] 750mg Take 1 [facility] n 750 mg 7-05 9100 tablet by ity of tablet 00:00: mouth [place] 00 every 24 Medical (twenty-fo Branch ur) hours. famotidine 2023-0 Yes [id number] 20mg Take 1 [facility] 20 mg 7-05 tablet by ity of tablet 00:00: mouth in [place] 00 the Medical morning. Branch NIFEdipine 3-0 Yes [id number] 60mg Take 1 [facility] nivers XL 60 mg 24 7-05 tablet by ity of hr tablet 00:00: mouth in [place] [address] the Medical morning. Branch famotidine 3-0 Yes [id number] 20mg Take 1 [facility] 20 mg 7-05 tablet by ity of tablet 00:00: mouth in [place] the Medical morning. Branch NIFEdipine 2022-0 Yes [id number] 60mg Take 1 [facility] nivers XL 60 mg 24 7-05 tablet by ity of hr tablet 00:00: mouth in [place] [address] the Medical morning. Branch famotidine 2022-0 Yes [id number] 20mg Take 1 [facility] 20 mg 7-05 tablet by ity of tablet 00:00: mouth in [place] the Medical morning. Branch NIFEdipine 2022-0 Yes [id number] 60mg Take 1 [facility] nivers XL 60 mg 24 7-05 tablet by ity of hr tablet 00:00: mouth in [place] [address] the Medical morning. Branch famotidine 3-0 Yes [id number] 20mg Take 1 [facility] 20 mg 7-05 tablet by ity of tablet 00:00: mouth in [place] the Medical morning. Branch NIFEdipine 2022-0 Yes [id number] 60mg Take 1 [facility] nivers XL 60 mg 24 7-05 tablet by ity of hr tablet 00:00: mouth in [place] [address] the Medical morning. Branch famotidine 3-0 Yes [id number] 20mg Take 1 [facility] 20 mg 7-05 tablet by ity of tablet 00:00: mouth in [place] 00 the Medical morning. Branch NIFEdipine 3-0 Yes [id number] 60mg Take 1 [facility] nivers XL 60 mg 24 7-05 tablet by ity of hr tablet 00:00: mouth in [place] [address] the Medical morning. Branch famotidine 2023-0 Yes [id number] 20mg Take 1 [facility] 20 mg 7-05 tablet by ity of tablet 00:00: mouth in [place] [address] the Medical morning. Branch NIFEdipine 2023-0 Yes [id number] 60mg Take 1 [facility] nivers XL 60 mg 24 04-03 tablet by [facility] of hr tablet 00:00: [facility] Medical [facility]. Branch levoFLOXaci 2022-0 Yes [id number] 750mg Take 1 [facility] n 750 mg 04-03 9100 tablet by ity of tablet 00:00: mouth [place] 00 every 24 Medical (twenty- Branch ur) hours. NIFEdipine 2022-0 2022- No [id number] 60mg Take 1 [facility] XL 60 mg 24 04-03 tablet by it y of hr tablet 00:00: 00:00 mouth in [place] 00 :00 the Medical morning. Branch NIFEdipine 2022-0 2022- No [id number] 60mg Take 1 [facility] XL 60 mg 24 04-03 tablet by it y of hr tablet 00:00: 00:00 mouth in [place] 00 :00 the Medical morning. Branch famotidine 2022-2022- No [id number] 20mg Take 1 [facility] 20 mg 04-03 tablet by ity of tablet 00:00: 00:00 mouth in [place] 00 :00 the Medical morning. Branch famotidine 2022-0 2022- No [id number] 20mg Take 1 [facility] 20 mg 04-03 tablet by ity of tablet 00:00: 00:00 mouth in [place] 00 :00 the Medical morning. Branch levoFLOXaci 2022-2022- No [id number] 750mg Take 1 [facility] n 750 mg 04-03 9100 tablet by ity o f tablet 00:00: 00:00 mouth [place] 00 :00 every 24 Medical (twenty- Branch ur) hours. levoFLOXaci 2022-0 2022- No [id number] 750mg Take 1 [facility] n 750 mg 04-03 9100 tablet by ity o f tablet 00:00: 00:00 mouth [place] 00 :00 every 24 Medical (twenty- Branch ur) hours. levoFLOXaci 2022-0 2022- No [id number] 750mg Take 1 [facility] n 750 mg 04-03 9100 tablet by ity o f tablet 00:00: 00:00 mouth [place] 00 :00 every 24 Medical (twenty- Branch ur) hours. levoFLOXaci 2022-0 2023- No [id number] 750mg Take 1 [facility] n 750 mg 04-03 9100 tablet by ity o f tablet 00:00: 00:00 mouth [place] 00 :00 every 24 Medical (twenty-fo Branch ur) hours. levoFLOXaci 2022-0 2022- No [id number] 750mg Take 1 [facility] 750 mg 04-03 9100 tablet by ity o f tablet 00:00: 00:00 mouth [place] 00 :00 every 24 Medical (-fo Branch ur) hours. tamsulosin 2022-0 Yes Take by [facility] 0.4 mg 24 6-12 mouth ity of hr capsule 14:26: daily. [place] [address] Medical Branch tamsulosin 2022-0 Yes Take by [facility] 0.4 mg 24 6-12 mouth ity of hr capsule 14:26: daily. [place] [address] Medical Branch tamsulosin 2022-0 Yes Take by [facility] 0.4 mg 24 6-12 mouth ity of hr capsule 14:26: daily. [place] [address] Medical Branch tamsulosin 2022-0 Yes Take by [facility] 0.4 mg 24 6-12 mouth ity of hr capsule 14:26: daily. [place] [address] Medical Branch tamsulosin 2022-0 Yes Take by [facility] 0.4 mg 24 6-12 mouth ity of hr capsule 14:26: daily. [place] [address] Medical Branch tamsulosin 2022-0 Yes Take by [facility] 0.4 mg 24 6-12 mouth ity of hr capsule 14:26: daily. [place] [address] Medical Branch tamsulosin 2022-0 Yes Take by [facility] 0.4 mg 24 6-12 mouth ity of hr capsule 14:26: daily. [place] [address] Medical Branch tamsulosin 2022-0 Yes Take by [facility] 0.4 mg 24 6-12 mouth ity of hr capsule 14:26: daily. [place] [address] Medical Branch amLODIPine 2022-0 2022- No 5mg Take 1 [facility] 5 mg tablet 03-04 tablet by it y of 13:54: 00:00 mouth in [place] 45 :00 the Medical morning. Branch amLODIPine 2022-0 2022- No 5mg Take 1 [facility] 5 mg tablet 03-0405 tablet by it y of 13:54: 00:00 mouth in [place] 45 :00 the Medical morning. Branch amLODIPine 2022-0 2023- No 5mg Take 1 [facility] 5 mg tablet 03-04-05 tablet by it y of 13:54: 00:00 mouth in [place] 45 :00 the Medical morning. Branch amLODIPine 2023-0 2023- No 5mg Take 1 [facility] 5 mg tablet -02 02-05 tablet by it y of 13:54: 00:00 mouth in [place] 45 :00 the Medical morning. Branch ALPRAZolam 2023-0 2023- No .25mg Take 1 [facility] (XANAX) 6- 06-02 tablet by ity of 0.25 mg 13:38: 00:00 mouth 2 [place] tablet 33 :00 (two) Medical times Branch daily as needed for Other (anxiety). ALPRAZolam 2023-0 2023- No .25mg Take 1 [facility] (XANAX) 6- 06-02 tablet by ity of 0.25 mg 13:38: 00:00 mouth 2 [place] tablet 33 :00 (two) Medical times [place] daily as needed for Other (anxiety). famotidine 2022-0 2023- No 20mg Take 1 [facility] 20 mg - 06-02 tablet by ity of tablet 13:18: 00:00 mouth in [place] 32 :00 the Medical morning Branch and 1 tablet in the evening. famotidine 2023-0 2023- No 20mg Take 1 [facility] 20 mg 6-02 06-02 tablet by ity of tablet 13:18: 00:00 mouth in [place] 32 :00 the Medical morning Branch and 1 tablet in the evening. tamsulosin 3-0 Yes Take by Univ ers 0.4 mg 24 6-02 mouth ity of hr capsule 13:17: daily. [address] amLODIPine 2023-0 Yes 5mg Take 1 [facility] 5 mg tablet 6-02 tablet by ity of 13:17: mouth in [place] [address] the Medical morning. Branch tamsulosin 3-0 Yes Take by Univ ers 0.4 mg 24 6-02 mouth ity of hr capsule 13:17: daily. [address] amLODIPine 2023-0 Yes 5mg Take 1 [facility] 5 mg tablet 6-02 tablet by ity of 13:17: mouth in [place] [address] the Medical morning. Branch tamsulosin 3-0 Yes Take by [facility] ers 0.4 mg 24 6-02 mouth ity of hr capsule 13:17: daily. [address] amLODIPine 3-0 Yes 5mg Take 1 [facility] 5 mg tablet 6-02 tablet by ity of 13:17: mouth in [place] [address] the Medical morning. Branch tamsulosin 2022-0 Yes Take by [facility] ers 0.4 mg 24 6-02 mouth ity of hr capsule 13:17: daily. [address] amLODIPine 3-0 Yes 5mg Take 1 [facility] 5 mg tablet 6-02 tablet by ity of 13:17: mouth in [place] [address] the Medical morning. Branch tamsulosin 2022-0 Yes Take by [facility] 0.4 mg 24 6-02 mouth ity of hr capsule 13:17: daily. [address] amLODIPine 2022-0 Yes 5mg Take 1 [facility] 5 mg tablet 6-02 tablet by ity of 13:17: mouth in [place] [address] the Medical morning. Branch tamsulosin 2022-0 Yes Take by [facility] 0.4 mg 24 6-02 mouth ity of hr capsule 13:17: daily. [address] tamsulosin 2022-0 Yes Take by [facility] ers 0.4 mg 24 6-02 mouth ity of hr capsule 13:17: daily. [address] tamsulosin 2022-0 Yes Take by [facility] ers 0.4 mg 24 6-02 mouth ity of hr capsule 13:17: daily. [address] tamsulosin 3-0 Yes Take by Univ ers 0.4 mg 24 6-02 mouth ity of hr capsule 13:17: daily. [address] ALPRAZolam 2022-0 Yes [id number] .25mg Take 1 [facility] (XANAX) 6-02 tablet by ity of 0.25 mg 00:00: mouth 2 [place] tablet 00 (two) Medical times [place] daily as needed for Other (anxiety). ALPRAZolam 2022-0 Yes [id number] .25mg Take 1 [facility] (XANAX) 6-02 tablet by ity of 0.25 mg 00:00: mouth 2 [place] tablet 00 (two) Medical times [place] daily as needed for Other (anxiety). ALPRAZolam 2022-0 Yes [id number] .25mg Take 1 [facility] (XANAX) 6-02 tablet by ity of 0.25 mg 00:00: mouth 2 [place] tablet 00 (two) Medical times Branch daily as needed for Other (anxiety). ALPRAZolam 2022-0 Yes [id number] .25mg Take 1 [facility] (XANAX) 6-02 tablet by ity of 0.25 mg 00:00: mouth 2 [place] tablet 00 (two) Medical times Branch daily as needed for Other (anxiety). ALPRAZolam 2022-0 Yes [id number] .25mg Take 1 [facility] (XANAX) 6-02 tablet by ity of 0.25 mg 00:00: mouth 2 [place] tablet 00 (two) Medical times Branch daily as needed for Other (anxiety). ALPRAZolam 2022-0 Yes [id number] .25mg Take 1 [facility] (XANAX) 6-02 tablet by ity of 0.25 mg 00:00: mouth 2 [place] tablet 00 (two) Medical times Branch daily as needed for Other (anxiety). ALPRAZolam 0 Yes [id number] .25mg Take 1 [facility] (XANAX) 6-02 tablet by ity of 0.25 mg 00:00: mouth 2 [place] tablet 00 (two) Medical times Branch daily as needed for Other (anxiety). ALPRAZolam 2022-0 Yes [id number] .25mg Take 1 [facility] (XANAX) 6-02 tablet by ity of 0.25 mg 00:00: mouth 2 [place] tablet 00 (two) Medical times Branch daily as needed for Other (anxiety). ALPRAZolam 0 Yes [id number] .25mg Take 1 [facility] (XANAX) 6-02 tablet by ity of 0.25 mg 00:00: mouth 2 [place] tablet 00 (two) Medical times Branch daily as needed for Other (anxiety). ALPRAZolam 2022-0 Yes [id number] .25mg Take 1 [facility] (XANAX) 6-02 tablet by ity of 0.25 mg 00:00: mouth 2 [place] tablet 00 (two) Medical times Branch daily as needed for Other (anxiety). ALPRAZolam 2022-0 Yes [id number] .25mg Take 1 [facility] (XANAX) 6-02 tablet by ity of 0.25 mg 00:00: mouth 2 [place] tablet 00 (two) Medical times Branch daily as needed for Other (anxiety). ALPRAZolam 2022-0 Yes [id number] .25mg Take 1 [facility] (XANAX) 6-02 tablet by ity of 0.25 mg 00:00: mouth 2 [place] tablet 00 (two) Medical times Branch daily as needed for Other (anxiety). ALPRAZolam 0 Yes [id number] .25mg Take 1 [facility] (XANAX) 6-02 tablet by ity of 0.25 mg 00:00: mouth 2 [place] tablet 00 (two) Medical times Branch daily as needed for Other (anxiety). ALPRAZolam 0 Yes [id number] .25mg Take 1 [facility] (XANAX) 6-02 tablet by ity of 0.25 mg 00:00: mouth 2 [place] tablet 00 (two) Medical times Branch daily as needed for Other (anxiety). ALPRAZolam 0 Yes [id number] .25mg Take 1 [facility] (XANAX) 6-02 tablet by ity of 0.25 mg 00:00: mouth 2 [place] tablet 00 (two) Medical times Branch daily as needed for Other (anxiety). ALPRAZolam 0 Yes [id number] .25mg Take 1 [facility] (XANAX) 6-02 tablet by ity of 0.25 mg 00:00: mouth 2 [place] tablet 00 (two) Medical times Branch daily as needed for Other (anxiety). ALPRAZolam 0 Yes [id number] .25mg Take 1 [facility] (XANAX) 6-02 tablet by ity of 0.25 mg 00:00: mouth 2 [place] tablet 00 (two) Medical times Branch daily as needed for Other (anxiety). ALPRAZolam 2022-0 Yes [id number] .25mg Take 1 [facility] (XANAX) 6-02 tablet by ity of 0.25 mg 00:00: mouth 2 [place] tablet 00 (two) Medical times Branch daily as needed for Other (anxiety). ALPRAZolam 2022-0 Yes [id number] .25mg Take 1 [facility] (XANAX) 6-02 tablet by ity of 0.25 mg 00:00: mouth 2 [place] tablet 00 (two) Medical times Branch daily as needed for Other (anxiety). ALPRAZolam 2022-0 Yes [id number] .25mg Take 1 [facility] (XANAX) 6-02 tablet by ity of 0.25 mg 00:00: mouth 2 [place] tablet 00 (two) Medical times Branch daily as needed for Other (anxiety). ALPRAZolam 0 Yes [id number] .25mg Take 1 [facility] (XANAX) 6-02 tablet by ity of 0.25 mg 00:00: mouth 2 [place] tablet 00 (two) Medical times Branch daily as needed for Other (anxiety). ALPRAZolam 0 Yes [id number] .25mg Take 1 [facility] (XANAX) 6-02 tablet by ity of 0.25 mg 00:00: mouth 2 [place] tablet 00 (two) Medical times Branch daily as needed for Other (anxiety). ALPRAZolam 0 Yes [id number] .25mg Take 1 [facility] (XANAX) 6-02 tablet by ity of 0.25 mg 00:00: mouth 2 [place] tablet 00 (two) Medical times Branch daily as needed for Other (anxiety). ALPRAZolam 0 Yes [id number] .25mg Take 1 [facility] (XANAX) 6-02 tablet by ity of 0.25 mg 00:00: mouth 2 [place] tablet 00 (two) Medical times Branch daily as needed for Other (anxiety). ALPRAZolam 0 Yes [id number] .25mg Take 1 [facility] (XANAX) 6-02 tablet by ity of 0.25 mg 00:00: mouth 2 [place] tablet 00 (two) Medical times Branch daily as needed for Other (anxiety). ALPRAZolam 0 Yes [id number] .25mg Take 1 [facility] (XANAX) 6-02 tablet by ity of 0.25 mg 00:00: mouth 2 [place] tablet 00 (two) Medical times Branch daily as needed for Other (anxiety). ALPRAZolam 2022-0 Yes [id number] .25mg Take 1 [facility] (XANAX) 6-02 tablet by ity of 0.25 mg 00:00: mouth 2 [place] tablet 00 (two) Medical times Branch daily as needed for Other (anxiety). ALPRAZolam 2022-0 Yes [id number] .25mg Take 1 [facility] (XANAX) 6-02 tablet by ity of 0.25 mg 00:00: mouth 2 [place] tablet 00 (two) Medical times Branch daily as needed for Other (anxiety). ALPRAZolam 0 Yes [id number] .25mg Take 1 [facility] (XANAX) 6-02 tablet by ity of 0.25 mg 00:00: mouth 2 [place] tablet 00 (two) Medical times Branch daily as needed for Other (anxiety). ALPRAZolam 0 Yes [id number] .25mg Take 1 [facility] (XANAX) 6-02 tablet by ity of 0.25 mg 00:00: mouth 2 [place] tablet 00 (two) Medical times Branch daily as needed for Other (anxiety). ALPRAZolam 0 Yes [id number] .25mg Take 1 [facility] (XANAX) 6-02 tablet by ity of 0.25 mg 00:00: mouth 2 [place] tablet 00 (two) Medical times Branch daily as needed for Other (anxiety). ALPRAZolam 0 Yes [id number] .25mg Take 1 [facility] (XANAX) 6-02 tablet by ity of 0.25 mg 00:00: mouth 2 [place] tablet 00 (two) Medical times Branch daily as needed for Other (anxiety). ALPRAZolam 0 Yes [id number] .25mg Take 1 [facility] (XANAX) 6-02 tablet by ity of 0.25 mg 00:00: mouth 2 [place] tablet 00 (two) Medical times Branch daily as needed for Other (anxiety). ALPRAZolam 0 Yes [id number] .25mg Take 1 [facility] (XANAX) 6-02 tablet by ity of 0.25 mg 00:00: mouth 2 [place] tablet 00 (two) Medical times Branch daily as needed for Other (anxiety). ALPRAZolam 0 Yes [id number] .25mg Take 1 [facility] (XANAX) 6-02 tablet by ity of 0.25 mg 00:00: mouth 2 [place] tablet 00 (two) Medical times Branch daily as needed for Other (anxiety). ALPRAZolam 2022-0 Yes [id number] .25mg Take 1 [facility] (XANAX) 6-02 tablet by ity of 0.25 mg 00:00: mouth 2 [place] tablet 00 (two) Medical times Branch daily as needed for Other (anxiety). ALPRAZolam 0 Yes [id number] .25mg Take 1 [facility] (XANAX) 6-02 tablet by ity of 0.25 mg 00:00: mouth 2 [place] tablet 00 (two) Medical times Branch daily as needed for Other (anxiety). ALPRAZolam 0 Yes [id number] .25mg Take 1 [facility] (XANAX) 6-02 tablet by ity of 0.25 mg 00:00: mouth 2 [place] tablet 00 (two) Medical times Branch daily as needed for Other (anxiety). ALPRAZolam 0 Yes [id number] .25mg Take 1 [facility] (XANAX) 6-02 tablet by ity of 0.25 mg 00:00: mouth 2 [place] tablet 00 (two) Medical times Branch daily as needed for Other (anxiety). ALPRAZolam 0 Yes [id number] .25mg Take 1 [facility] (XANAX) 6-02 tablet by ity of 0.25 mg 00:00: mouth 2 [place] tablet 00 (two) Medical times Branch daily as needed for Other (anxiety). ALPRAZolam 0 Yes [id number] .25mg Take 1 [facility] (XANAX) 6-02 tablet by ity of 0.25 mg 00:00: mouth 2 [place] tablet 00 (two) Medical times Branch daily as needed for Other (anxiety). ALPRAZolam 0 Yes [id number] .25mg Take 1 [facility] (XANAX) 6-02 tablet by ity of 0.25 mg 00:00: mouth 2 [place] tablet 00 (two) Medical times Branch daily as needed for Other (anxiety). ALPRAZolam 0 Yes [id number] .25mg Take 1 [facility] (XANAX) 6-02 tablet by ity of 0.25 mg 00:00: mouth 2 [place] tablet 00 (two) Medical times Branch daily as needed for Other (anxiety). ALPRAZolam 0 Yes [id number] .25mg Take 1 [facility] (XANAX) 6-02 tablet by ity of 0.25 mg 00:00: mouth 2 [place] tablet 00 (two) Medical times Branch daily as needed for Other (anxiety). ALPRAZolam 0 Yes [id number] .25mg Take 1 [facility] (XANAX) 6-02 tablet by ity of 0.25 mg 00:00: mouth 2 [place] tablet 00 (two) Medical times Branch daily as needed for Other (anxiety). ALPRAZolam 2022-0 Yes [id number] .25mg Take 1 [facility] (XANAX) 6-02 tablet by ity of 0.25 mg 00:00: mouth 2 [place] tablet 00 (two) Medical times Branch daily as needed for Other (anxiety). ALPRAZolam 2022-0 Yes [id number] .25mg Take 1 [facility] (XANAX) 6-02 tablet by ity of 0.25 mg 00:00: mouth 2 [place] tablet 00 (two) Medical times Branch daily as needed for Other (anxiety). ALPRAZolam 2022-0 Yes [id number] .25mg Take 1 [facility] (XANAX) 6-02 tablet by ity of 0.25 mg 00:00: mouth 2 [place] tablet 00 (two) Medical times Branch daily as needed for Other (anxiety). ALPRAZolam 2022-0 Yes [id number] .25mg Take 1 [facility] (XANAX) 6-02 tablet by ity of 0.25 mg 00:00: mouth 2 [place] tablet 00 (two) Medical times Branch daily as needed for Other (anxiety). ALPRAZolam 2022-0 Yes [id number] .25mg Take 1 [facility] (XANAX) 6-02 tablet by ity of 0.25 mg 00:00: mouth 2 [place] tablet 00 (two) Medical times Branch daily as needed for Other (anxiety). famotidine 2022-0 Yes [id number] 20mg Take 1 [facility] 20 mg 6-02 tablet by ity of tablet 00:00: mouth in [place] 00 the Medical morning. Branch ALPRAZolam 2022-0 Yes [id number] .25mg Take 1 [facility] (XANAX) 6-02 tablet by ity of 0.25 mg 00:00: mouth 2 [place] tablet 00 (two) Medical times Branch daily as needed for Other (anxiety). famotidine 2022-0 Yes [id number] 20mg Take 1 [facility] 20 mg 6-02 tablet by ity of tablet 00:00: mouth in [place] 00 the Medical morning. Branch ALPRAZolam 2022-0 Yes [id number] .25mg Take 1 [facility] (XANAX) 6-02 tablet by ity of 0.25 mg 00:00: mouth 2 [place] tablet 00 (two) Medical times Branch daily as needed for Other (anxiety). famotidine 2023-0 Yes [id number] 20mg Take 1 [facility] 20 mg 6-02 tablet by ity of tablet 00:00: mouth in [place] 00 the Medical morning. Branch ALPRAZolam 3-0 Yes [id number] .25mg Take 1 [facility] (XANAX) 6-02 tablet by ity of 0.25 mg 00:00: mouth 2 [place] tablet 00 (two) Medical times Branch daily as needed for Other (anxiety). famotidine 2023-0 Yes [id number] 20mg Take 1 [facility] 20 mg 6-02 tablet by ity of tablet 00:00: mouth in [place] 00 the Medical morning. Branch ALPRAZolam 2022-0 Yes [id number] .25mg Take 1 [facility] (XANAX) 6-02 tablet by ity of 0.25 mg 00:00: mouth 2 [place] tablet 00 (two) Medical times Branch daily as needed for Other (anxiety). famotidine 2022-0 Yes [id number] 20mg Take 1 [facility] 20 mg 6-02 tablet by ity of tablet 00:00: mouth in [place] 00 the Medical morning. Branch ALPRAZolam 2022-0 Yes [id number] .25mg Take 1 [facility] (XANAX) 6-02 tablet by ity of 0.25 mg 00:00: mouth 2 [place] tablet 00 (two) Medical times Branch daily as needed for Other (anxiety). famotidine 3-0 Yes [id number] 20mg Take 1 [facility] 20 mg 6-02 tablet by ity of tablet 00:00: mouth in [place] 00 the Medical morning. Branch ALPRAZolam 3-0 Yes [id number] .25mg Take 1 [facility] (XANAX) 6-02 tablet by ity of 0.25 mg 00:00: mouth 2 [place] tablet 00 (two) Medical times Branch daily as needed for Other (anxiety). famotidine 2023-0 Yes [id number] 20mg Take 1 [facility] 20 mg 6-02 tablet by ity of tablet 00:00: mouth in [place] 00 the Medical morning. Branch ALPRAZolam 2023-0 Yes [id number] .25mg Take 1 [facility] (XANAX) 6-02 tablet by ity of 0.25 mg 00:00: mouth 2 [place] tablet 00 (two) Medical times Branch daily as needed for Other (anxiety). famotidine 2023-0 Yes [id number] 20mg Take 1 [facility] 20 mg 6-02 tablet by ity of tablet 00:00: mouth in [place] 00 the Medical morning. Branch ALPRAZolam 3-0 Yes [id number] .25mg Take 1 [facility] (XANAX) 6-02 tablet by ity of 0.25 mg 00:00: mouth 2 [place] tablet 00 (two) Medical times Branch daily as needed for Other (anxiety). famotidine 2023-0 Yes [id number] 20mg Take 1 [facility] 20 mg 6-02 tablet by ity of tablet 00:00: mouth in [place] 00 the Medical morning. Branch ALPRAZolam 2022-0 Yes [id number] .25mg Take 1 [facility] (XANAX) 6-02 tablet by ity of 0.25 mg 00:00: mouth 2 [place] tablet 00 (two) Medical times Branch daily as needed for Other (anxiety). famotidine 2022-0 Yes [id number] 20mg Take 1 [facility] 20 mg 6-02 tablet by ity of tablet 00:00: mouth in [place] 00 the Medical morning. Branch ALPRAZolam 2022-0 Yes [id number] .25mg Take 1 [facility] (XANAX) 6-02 tablet by ity of 0.25 mg 00:00: mouth 2 [place] tablet 00 (two) Medical times Branch daily as needed for Other (anxiety). famotidine 3-0 Yes [id number] 20mg Take 1 [facility] 20 mg 6-02 tablet by ity of tablet 00:00: mouth in [place] 00 the Medical morning. Branch ALPRAZolam 3-0 Yes [id number] .25mg Take 1 [facility] (XANAX) 6-02 tablet by ity of 0.25 mg 00:00: mouth 2 [place] tablet 00 (two) Medical times Branch daily as needed for Other (anxiety). famotidine 2023-0 Yes [id number] 20mg Take 1 [facility] 20 mg 6-02 tablet by ity of tablet 00:00: mouth in [place] 00 the Medical morning. Branch ALPRAZolam 2023-0 Yes [id number] .25mg Take 1 [facility] (XANAX) 6-02 tablet by ity of 0.25 mg 00:00: mouth 2 [place] tablet 00 (two) Medical times Branch daily as needed for Other (anxiety). famotidine 0 Yes [id number] 20mg Take 1 [facility] 20 mg 6-02 tablet by ity of tablet 00:00: mouth in [place] 00 the Medical morning. Branch ALPRAZolam 0 Yes [id number] .25mg Take 1 [facility] (XANAX) 6-02 tablet by ity of 0.25 mg 00:00: mouth 2 [place] tablet 00 (two) Medical times Branch daily as needed for Other (anxiety). famotidine Yes [id number] 20mg Take 1 [facility] 20 mg 6-02 tablet by ity of tablet 00:00: mouth in [place] 00 the Medical morning. Branch ALPRAZolam Yes [id number] .25mg Take 1 [facility] (XANAX) 6-02 tablet by ity of 0.25 mg 00:00: mouth 2 [place] tablet 00 (two) Medical times Branch daily as needed for Other (anxiety). ALPRAZolam Yes [id number] .25mg Take 1 [facility] (XANAX) 6-02 tablet by ity of 0.25 mg 00:00: mouth 2 [place] tablet 00 (two) Medical times Branch daily as needed for Other (anxiety). ALPRAZolam Yes [id number] .25mg Take 1 [facility] (XANAX) 6-02 tablet by ity of 0.25 mg 00:00: mouth 2 [place] tablet 00 (two) Medical times Branch daily as needed for Other (anxiety). ALPRAZolam 2022- No [id number] .25mg Take 1 [facility] (XANAX) 6-11 08- tablet by ity of 0.25 mg 00:00: 00:00 mouth 2 [place] tablet 00 :00 (two) Medical times Branch daily as needed for Other (anxiety). ALPRAZolam 2022- No [id number] .25mg Take 1 [facility] (XANAX) 6-11 08-22 tablet by ity of 0.25 mg 00:00: 00:00 mouth 2 [place] tablet 00 :00 (two) Medical times Branch daily as needed for Other (anxiety). ALPRAZolam 0 2022- No [id number] .25mg Take 1 [facility] (XANAX) 6-11 08- tablet by ity of 0.25 mg 00:00: 00:00 mouth 2 [place] tablet 00 :00 (two) Medical times Branch daily as needed for Other (anxiety). ALPRAZolam 2022- No [id number] .25mg Take 1 [facility] (XANAX) 03-01- tablet by ity of 0.25 mg 00:00: 00:00 mouth 2 [place] tablet 00 :00 (two) Medical times Branch daily as needed for Other (anxiety). famotidine 2022- No [id number] 20mg Take 1 [facility] 20 mg 03-01 tablet by ity of tablet 00:00: 00:00 mouth in [place] 00 :00 the Medical morning. Branch aspirin 81 2022- No 81mg QD Take [address] [facility] 5-03 05-05 tablet (81 [facility] 00:[facility]: 23:59 mg total) Medic al 00 :00 by mouth Center in the morning for 30 days. aspirin 81 2022- No 81mg QD Take [address] [facility] 5-03 05-05 tablet (81 [facility] tablet 00:00: 23:59 mg total) Medic al 00 :00 by mouth Center in the morning for 30 days. NIFEdipine 2023- No 90mg QD Take [address] [facility] (PROCARDIA- 5-05 05-04 tablet (90 [facility] XL) 90 MG 00:00: 23:59 mg total) Me dical (OSM) 24 hr 00 :00 by mouth Cent er tablet nightly. NIFEdipine 2023- No 90mg QD Take [address] [facility] (PROCARDIA- 5-05 05-04 tablet (90 [facility] XL) 90 MG 00:00: 23:59 mg total) Me dical (OSM) 24 hr 00 :00 by mouth Cent er tablet nightly. famotidine 2022- No 20mg QD Take [address] [facility] (PEPCID) 20 5-05 06-04 tablet (20 [facility] tablet 00:00: 23:59 mg total) Me dical 00 :00 by mouth Center in the morning for 30 days. thiamine 2022-2022- No 100mg QD Take [facility] 5[facility] 06-04 [facility] tablet 00:00: 23:59 (100 mg Medical 00 :00 total) by Center mouth in the morning for 30 days. tamsulosin 2022-2022- No .4mg QD Take [address] [facility] (FLOMAX) 02-01 capsule [facility] 0.4 mg Cap 00:00: 23:59 (0.4 mg Med ical 24 hr 00 :00 total) by Center capsule mouth in the morning for 30 days. multivitami 2022-2022- No 1{tbl} QD Take [address] n 02-01 tablet by [facility] (THERAGRAN) 00:00: 23:59 mouth in M edical tablet 00 :00 the Center morning for 30 days. famotidine 2022- No 20mg QD Take [address] [facility] (PEPCID) 20 02-01 tablet (20 [facility] tablet 00:00: 23:59 mg total) Me dical 00 :00 by mouth Center in the morning for 30 days. thiamine 2022-2022- No 100mg QD Take [facility] 02-01 [facility] tablet 00:00: 23:59 (100 mg Medical 00 :00 total) by Center mouth in the morning for 30 days. tamsulosin 2022- No .4mg QD Take [address] [facility] (FLOMAX) 02-01 capsule [facility] 0.4 mg Cap 00:00: 23:59 (0.4 mg Med ical 24 hr 00 :00 total) by Center capsule mouth in the morning for 30 days. multivitami 2022-2022- No 1{tbl} QD Take [address] [facility] 02-01 tablet by [facility] (THERAGRAN) 00:00: 23:59 mouth in M edical tablet 00 :00 the Center morning for 30 days. carvediloL 2022-2022- No 25mg Q.5D Take [address] [facility] (COREG) 25 01-31 tablet (25 [facility] MG tablet 00:00: 23:59 mg total) Me dical 00 :00 by mouth Center in the morning and 1 tablet (25 mg total) before bedtime. Do all this for 30 days. atorvastati 2022-2022- No 80mg QD Take [address] [facility] (LIPITOR) 5-04 06-03 tablet (80 [facility] 80 MG 00:00: 23:59 mg total) Medica l tablet 00 :00 by mouth Center nightly for 30 days. ALPRAZolam 2022- No .25mg Take [address] [facility] (XANAX) 01-31-03 tablet [facility] 0.25 MG 00:00: 23:59 (0.25 mg Medic al tablet 00 :00 total) by Center mouth 2 (two) times daily as needed for Anxiety for up to 30 days. Max Daily Amount: 0.5 mg carvediloL 2022- No 25mg Q.5D Take [address] [facility] (COREG) 25 01-31- tablet (25 [facility] MG tablet 00:00: 23:59 mg total) Me dical 00 :00 by mouth Center in the morning and 1 tablet (25 mg total) before bedtime. Do all this for 30 days. atorvastati 2022- No 80mg QD Take [address] [facility] (LIPITOR) 01-31 tablet (80 [facility] 80 MG 00:00: 23:59 mg total) Medica l tablet 00 :00 by mouth Center nightly for 30 days. ALPRAZolam 2022- No .25mg Take [address] [facility] (XANAX) 01-31- tablet [facility] 0.25 MG 00:00: 23:59 (0.25 mg Medic al tablet 00 :00 total) by Center mouth 2 (two) times daily as needed for Anxiety for up to 30 days. Max Daily Amount: 0.5 mg NIFEdipine 2022- No 60mg QD Take [address] [facility] (PROCARDIA- 5-04 05-05 tablet (60 [facility] XL) 60 MG 00:00: 00:00 mg total) Me dical (OSM) 24 hr 00 :00 by mouth Cent er tablet nightly for 30 days. NIFEdipine 2022- No 60mg QD Take [address] [facility] (PROCARDIA- 5-04 05-05 tablet (60 [facility] XL) 60 MG 00:00: 00:00 mg total) Me dical (OSM) 24 hr 00 :00 by mouth Cent er tablet nightly for 30 days. CARVEDILOL Yes [id number] TAKE ONE [facility] 25 mg 4-26 (1) [facility]y of tablet 00:00: TABLET(S) [place] 00 BY MOUTH Medical TWICE A Branch DAY WITH MEALS. CARVEDILOL 2022-0 Yes [id number] TAKE ONE [facility] 25 mg 4-26 (1) ity of tablet 00:00: TABLET(S) [place] 00 BY MOUTH Medical TWICE A Branch DAY WITH MEALS. CARVEDILOL 202-0 Yes [id number] TAKE ONE [facility] 25 mg 4-26 (1) ity of tablet 00:00: TABLET(S) [place] 00 BY MOUTH Medical TWICE A Branch DAY WITH MEALS. CARVEDILOL 2021-0 Yes [id number] TAKE ONE [facility] 25 mg 4-26 (1) ity of tablet 00:00: TABLET(S) [place] 00 BY MOUTH Medical TWICE A Branch DAY WITH MEALS. CARVEDILOL 2021-0 Yes [id number] TAKE ONE [facility] 25 mg 4-26 (1) ity of tablet 00:00: TABLET(S) [place] 00 BY MOUTH Medical TWICE A Branch DAY WITH MEALS. CARVEDILOL 2021-0 Yes [id number] TAKE ONE [facility] 25 mg 4-26 (1) ity of tablet 00:00: TABLET(S) [place] 00 BY MOUTH Medical TWICE A Branch DAY WITH MEALS. CARVEDILOL 2021-0 Yes [id number] TAKE ONE [facility] 25 mg 4-26 (1) ity of tablet 00:00: TABLET(S) [place] 00 BY MOUTH Medical TWICE A Branch DAY WITH MEALS. CARVEDILOL 2021-0 Yes [id number] TAKE ONE [facility] 25 mg 4-26 (1) [facility] of tablet 00:00: TABLET(S) [place] 00 BY MOUTH Medical TWICE A Branch DAY WITH MEALS. CARVEDILOL 2021-0 Yes [id number] TAKE ONE [facility] 25 mg 4-26 (1) [facility] of tablet 00:00: TABLET(S) [place] 00 BY MOUTH Medical TWICE A Branch DAY WITH MEALS. CARVEDILOL 2022-0 Yes [id number] TAKE ONE [facility] 25 mg 4-26 (1) [facility] of tablet 00:00: TABLET(S) [place] 00 BY MOUTH Medical TWICE A Branch DAY WITH MEALS. CARVEDILOL 2022-0 Yes [id number] TAKE ONE [facility] 25 mg 4-26 (1) it[facility] of tablet 00:00: TABLET(S) [place] 00 BY MOUTH Medical TWICE A Branch DAY WITH MEALS. CARVEDILOL 2022-0 Yes [id number] TAKE ONE [facility] 25 mg 4-26 (1) ity of tablet 00:00: TABLET(S) [place] 00 BY MOUTH Medical TWICE A Branch DAY WITH MEALS. CARVEDILOL 202-0 Yes [id number] TAKE ONE [facility] 25 mg 4-26 (1) ity of tablet 00:00: TABLET(S) [place] 00 BY MOUTH Medical TWICE A Branch DAY WITH MEALS. CARVEDILOL 2021-0 Yes [id number] TAKE ONE [facility] 25 mg 4-26 (1) ity of tablet 00:00: TABLET(S) [place] 00 BY MOUTH Medical TWICE A Branch DAY WITH MEALS. CARVEDILOL 2021-0 Yes [id number] TAKE ONE [facility] 25 mg 4-26 (1) ity of tablet 00:00: TABLET(S) [place] 00 BY MOUTH Medical TWICE A Branch DAY WITH MEALS. CARVEDILOL 2021-0 Yes [id number] TAKE ONE [facility] 25 mg 4-26 (1) ity of tablet 00:00: TABLET(S) [place] 00 BY MOUTH Medical TWICE A Branch DAY WITH MEALS. CARVEDILOL 2021-0 Yes [id number] TAKE ONE [facility] 25 mg 4-26 (1) ity of tablet 00:00: TABLET(S) [place] 00 BY MOUTH Medical TWICE A Branch DAY WITH MEALS. CARVEDILOL 2021-0 Yes [id number] TAKE ONE [facility] 25 mg 4-26 (1) ity of tablet 00:00: TABLET(S) [place] 00 BY MOUTH Medical TWICE A Branch DAY WITH MEALS. CARVEDILOL 2-0 Yes [id number] TAKE ONE [facility] 25 mg 4-26 (1) ity of tablet 00:00: TABLET(S) [place] 00 BY MOUTH Medical TWICE A Branch DAY WITH MEALS. CARVEDILOL 2022-0 Yes [id number] TAKE ONE [facility] 25 mg 4-26 (1) ity of tablet 00:00: TABLET(S) [place] 00 BY MOUTH Medical TWICE A Branch DAY WITH MEALS. CARVEDILOL 2022-0 Yes [id number] TAKE ONE [facility] 25 mg 4-26 (1) ity of tablet 00:00: TABLET(S) [place] 00 BY MOUTH Medical TWICE A Branch DAY WITH MEALS. CARVEDILOL 2022-0 Yes [id number] TAKE ONE [facility] 25 mg 4-26 (1) ity of tablet 00:00: TABLET(S) [place] 00 BY MOUTH Medical TWICE A Branch DAY WITH MEALS. CARVEDILOL 0 Yes [id number] TAKE ONE [facility] 25 mg 4-26 (1) ity of tablet 00:00: TABLET(S) [place] 00 BY MOUTH Medical TWICE A Branch DAY WITH MEALS. CARVEDILOL 0 Yes [id number] TAKE ONE [facility] 25 mg 4-26 (1) ity of tablet 00:00: TABLET(S) [place] 00 BY MOUTH Medical TWICE A Branch DAY WITH MEALS. CARVEDILOL 0 Yes [id number] TAKE ONE [facility] 25 mg 4-26 (1) ity of tablet 00:00: TABLET(S) [place] 00 BY MOUTH Medical TWICE A Branch DAY WITH MEALS. CARVEDILOL 0 3- No [id number] TAKE ONE [facility] 25 mg 4-26 07-10 (1) ity of tablet 00:00: 00:00 TABLET(S) [place] 00 :00 BY MOUTH Medical TWICE A Branch DAY WITH MEALS. CARVEDILOL 2020-09 Yes [id number] TAKE ONE [facility] 25 mg 1-08 (1) ity of tablet 00:00: TABLET(S) [place] 00 BY MOUTH Medical TWICE A Branch DAY WITH MEALS. CARVEDILOL 2020-09- No [id number] TAKE ONE [facility] 25 mg 1-08 04-26 (1) ity of tablet 00:00: 00:00 TABLET(S) [place] 00 :00 BY MOUTH Medical TWICE A Branch DAY WITH MEALS. ISOSORBIDE 2020-09 Yes [id number] TAKE THREE [facility] MONONITRATE 0-22 (3) it[facility] of 30 mg 24 hr 00:00: TABLET(S) [place] tablet 00 BY MOUTH Medical DAILY. Branch ISOSORBIDE 2020-09 Yes [id number] TAKE THREE [facility] MONONITRATE 0-22 (3) it[facility] of 30 mg 24 hr 00:00: TABLET(S) [place] tablet 00 BY MOUTH Medical DAILY. Branch ISOSORBIDE 2020-09 Yes [id number] TAKE THREE [facility] MONONITRATE 0-22 (3) ity of 30 mg 24 hr 00:00: TABLET(S) [place] tablet 00 BY MOUTH Medical DAILY. Branch ISOSORBIDE 1 Yes [id number] TAKE THREE [facility] MONONITRATE 0-22 (3) ity of 30 mg 24 hr 00:00: TABLET(S) [place] tablet 00 BY MOUTH Medical DAILY. [place] ISOSORBIDE 2020-09 Yes [id number] TAKE THREE [facility] MONONITRATE 0-22 (3) ity of 30 mg 24 hr 00:00: TABLET(S) [place] tablet 00 BY MOUTH Medical DAILY. [place] ISOSORBIDE 2020-09 Yes [id number] TAKE THREE [facility] MONONITRATE 0-22 (3) ity of 30 mg 24 hr 00:00: TABLET(S) [place] tablet 00 BY MOUTH Medical DAILY. [place] ISOSORBIDE 2020-09- No [id number] TAKE THREE [facility] MONONITRATE 0-22 06-02 (3) ity of 30 mg 24 hr 00:00: 00:00 TABLET(S) [place] tablet 00 :00 BY MOUTH Medical DAILY. [place] ISOSORBIDE 2020-09- No [id number] TAKE THREE [facility] MONONITRATE 0-22 06-02 (3) ity of 30 mg 24 hr 00:00: 00:00 TABLET(S) [place] tablet 00 :00 BY MOUTH Medical DAILY. [place] CARVEDILOL Yes [id number] TAKE ONE [facility] 25 mg 7-22 (1) ity of tablet 00:00: TABLET(S) [place] 00 BY MOUTH Medical TWICE A Branch DAY WITH MEALS. CARVEDILOL Yes [id number] TAKE ONE [facility] 25 mg 7-22 (1) ity of tablet 00:00: TABLET(S) [place] 00 BY MOUTH Medical TWICE A Branch DAY WITH MEALS. CARVEDILOL Yes [id number] TAKE ONE [facility] 25 mg 7-22 (1) ity of tablet 00:00: TABLET(S) [place] 00 BY MOUTH Medical TWICE A Branch DAY WITH MEALS. CARVEDILOL Yes [id number] TAKE ONE [facility] 25 mg 7-22 (1) ity of tablet 00:00: TABLET(S) [place] 00 BY MOUTH Medical TWICE A Branch DAY WITH MEALS. CARVEDILOL 2020- No [id number] TAKE ONE [facility] 25 mg 7-22 11-08 (1) ity of tablet 00:00: 00:00 TABLET(S) [place] 00 :00 BY MOUTH Medical TWICE A Branch DAY WITH MEALS. isosorbide 2021-0 Yes [id number] TAKE Un [facility] mononitrate 7-20 THREE (3) ity of 30 mg 24 hr 00:00: TABLET(S) [place] tablet 00 BY MOUTH Medical DAILY. Branch isosorbide 2020-0 Yes [id number] TAKE Un [facility] mononitrate 7-20 THREE (3) ity of 30 mg 24 hr 00:00: TABLET(S) [place] tablet 00 BY MOUTH Medical DAILY. Branch isosorbide 2020-0 Yes [id number] TAKE Un [facility] mononitrate 7-20 THREE (3) ity of 30 mg 24 hr 00:00: TABLET(S) [place] tablet 00 BY MOUTH Medical DAILY. Branch isosorbide 2020-0 Yes [id number] TAKE Un [facility] mononitrate 7-20 THREE (3) ity of 30 mg 24 hr 00:00: TABLET(S) [place] tablet 00 BY MOUTH Medical DAILY. Branch isosorbide 0 2021- No [id number] TAKE U n[facility] mononitrate 7-20 10-22 THREE (3) it y of 30 mg 24 hr 00:00: 00:00 TABLET(S) [place] tablet 00 :00 BY MOUTH Medical DAILY. [place] NIFEDIPINE 0 Yes [id number] TAKE ONE [facility] XL 60 mg 24 6-22 (1) ity of hr tablet 00:00: TABLET(S) [place] 00 BY MOUTH Medical ONCE A Branch DAY. NIFEDIPINE 2020-0 Yes [id number] TAKE ONE [facility] XL 60 mg 24 6-22 (1) ity of hr tablet 00:00: TABLET(S) [place] 00 BY MOUTH Medical ONCE A Branch DAY. NIFEDIPINE 2020-0 Yes [id number] TAKE ONE [facility] XL 60 mg 24 6-22 (1) ity of hr tablet 00:00: TABLET(S) [place] 00 BY MOUTH Medical ONCE A Branch DAY. NIFEDIPINE 2020-0 Yes [id number] TAKE ONE [facility] XL 60 mg 24 6-22 (1) ity of hr tablet 00:00: TABLET(S) [place] 00 BY MOUTH Medical ONCE A Branch DAY. NIFEDIPINE 2020-0 Yes [id number] TAKE ONE [facility] 60 mg 24 6-22 (1) ity of hr tablet 00:00: TABLET(S) [place] 00 BY MOUTH Medical ONCE A Branch DAY. NIFEDIPINE 2020-0 Yes [id number] TAKE ONE [facility] 60 mg 24 6-22 (1) ity of hr tablet 00:00: TABLET(S) [place] 00 BY MOUTH Medical ONCE A Branch DAY. NIFEDIPINE 2020-0 Yes [id number] TAKE ONE [facility] 60 mg 24 6-22 (1) ity of hr tablet 00:00: TABLET(S) [place] 00 BY MOUTH Medical ONCE A Branch DAY. NIFEDIPINE 2020-0 Yes [id number] TAKE ONE [facility] 60 mg 24 6-22 (1) ity of hr tablet 00:00: TABLET(S) [place] 00 BY MOUTH Medical ONCE A Branch DAY. NIFEDIPINE 2020-0 Yes [id number] TAKE ONE [facility] 60 mg 24 6-22 (1) ity of hr tablet 00:00: TABLET(S) [place] 00 BY MOUTH Medical ONCE A Branch DAY. NIFEDIPINE 2020-0 Yes [id number] TAKE ONE [facility] 60 mg 24 6-22 (1) ity of hr tablet 00:00: TABLET(S) [place] 00 BY MOUTH Medical ONCE A Branch DAY. NIFEDIPINE 2020-0 Yes [id number] TAKE ONE [facility] XL 60 mg 24 6-22 (1) ity of hr tablet 00:00: TABLET(S) [place] 00 BY MOUTH Medical ONCE A Branch DAY. NIFEDIPINE 2020-0 Yes [id number] TAKE ONE [facility] 60 mg 24 6-22 (1) ity of hr tablet 00:00: TABLET(S) [place] 00 BY MOUTH Medical ONCE A Branch DAY. NIFEDIPINE 2020-0 Yes [id number] TAKE ONE [facility] XL 60 mg 24 6-22 (1) ity of hr tablet 00:00: TABLET(S) [place] 00 BY MOUTH Medical ONCE A Branch DAY. NIFEDIPINE 2020-0 Yes [id number] TAKE ONE [facility] 60 mg 24 6-22 (1) ity of hr tablet 00:00: TABLET(S) [place] 00 BY MOUTH Medical ONCE A Branch DAY. NIFEDIPINE 2020-0 Yes [id number] TAKE ONE [facility] XL 60 mg 24 6-22 (1) ity of hr tablet 00:00: TABLET(S) [place] 00 BY MOUTH Medical ONCE A Branch DAY. NIFEDIPINE 2020-0 Yes [id number] TAKE ONE [facility] XL 60 mg 24 6-22 (1) ity of hr tablet 00:00: TABLET(S) [place] 00 BY MOUTH Medical ONCE A Branch DAY. NIFEDIPINE 2020-0 Yes [id number] TAKE ONE [facility] XL 60 mg 24 6-22 (1) ity of hr tablet 00:00: TABLET(S) [place] 00 BY MOUTH Medical ONCE A Branch DAY. NIFEDIPINE 2020-0 Yes [id number] TAKE ONE [facility] XL 60 mg 24 6-22 (1) ity of hr tablet 00:00: TABLET(S) [place] 00 BY MOUTH Medical ONCE A Branch DAY. NIFEDIPINE 2020-0 Yes [id number] TAKE ONE [facility] XL 60 mg 24 6-22 (1) ity of hr tablet 00:00: TABLET(S) [place] 00 BY MOUTH Medical ONCE A Branch DAY. NIFEDIPINE 2020-0 Yes [id number] TAKE ONE [facility] XL 60 mg 24 6-22 (1) ity of hr tablet 00:00: TABLET(S) [place] 00 BY MOUTH Medical ONCE A Branch DAY. NIFEDIPINE 2020-0 Yes [id number] TAKE ONE [facility] XL 60 mg 24 6-22 (1) ity of hr tablet 00:00: TABLET(S) [place] 00 BY MOUTH Medical ONCE A Branch DAY. NIFEDIPINE 2020-0 Yes [id number] TAKE ONE [facility] XL 60 mg 24 6-22 (1) ity of hr tablet 00:00: TABLET(S) [place] 00 BY MOUTH Medical ONCE A Branch DAY. NIFEDIPINE 2020-0 Yes [id number] TAKE ONE [facility] XL 60 mg 24 6-22 (1) ity of hr tablet 00:00: TABLET(S) [place] 00 BY MOUTH Medical ONCE A Branch DAY. NIFEDIPINE 2020-0 Yes [id number] TAKE ONE [facility] XL 60 mg 24 6-22 (1) ity of hr tablet 00:00: TABLET(S) [place] 00 BY MOUTH Medical ONCE A Branch DAY. NIFEDIPINE 2020-0 Yes [id number] TAKE ONE [facility] XL 60 mg 24 6-22 (1) ity of hr tablet 00:00: TABLET(S) [place] 00 BY MOUTH Medical ONCE A Branch DAY. NIFEDIPINE 2020-0 Yes [id number] TAKE ONE [facility] XL 60 mg 24 6-22 (1) ity of hr tablet 00:00: TABLET(S) [place] 00 BY MOUTH Medical ONCE A Branch DAY. NIFEDIPINE 2020-0 Yes [id number] TAKE ONE [facility] XL 60 mg 24 6-22 (1) ity of hr tablet 00:00: TABLET(S) [place] 00 BY MOUTH Medical ONCE A Branch DAY. NIFEDIPINE 0 Yes [id number] TAKE ONE [facility] XL 60 mg 24 6-22 (1) ity of hr tablet 00:00: TABLET(S) [place] 00 BY MOUTH Medical ONCE A Branch DAY. NIFEDIPINE 0 Yes [id number] TAKE ONE [facility] XL 60 mg 24 6-22 (1) ity of hr tablet 00:00: TABLET(S) [place] 00 BY MOUTH Medical ONCE A Branch DAY. NIFEDIPINE 2022- No [id number] TAKE ONE [facility] XL 60 mg 24 6-22 07-05 (1) ity of hr tablet 00:00: 00:00 TABLET(S) [place] 00 :00 BY MOUTH Medical ONCE A Branch DAY. NIFEDIPINE 0 Yes [id number] TAKE ONE [facility] XL 60 mg 24 6-18 (1) ity of hr tablet 00:00: TABLET(S) [place] 00 BY MOUTH Medical ONCE A Branch DAY. NIFEDIPINE 0 Yes [id number] TAKE ONE [facility] XL 60 mg 24 6-18 (1) ity of hr tablet 00:00: TABLET(S) [place] 00 BY MOUTH Medical ONCE A Branch DAY. NIFEDIPINE 2020- No [id number] TAKE ONE [facility] XL 60 mg 24 6-18 06-22 (1) ity of hr tablet 00:00: 00:00 TABLET(S) [place] 00 :00 BY MOUTH Medical ONCE A Branch DAY. NIFEDIPINE 0 Yes [id number] TAKE ONE [facility] XL 60 mg 24 5-19 (1) ity of hr tablet 00:00: TABLET(S) [place] 00 BY MOUTH Medical ONCE A Branch DAY. NIFEDIPINE 0 Yes [id number] TAKE ONE [facility] XL 60 mg 24 5-19 (1) ity of hr tablet 00:00: TABLET(S) [place] 00 BY MOUTH Medical ONCE A Branch DAY. NIFEDIPINE 0 Yes [id number] TAKE ONE [facility] XL 60 mg 24 5-19 (1) ity of hr tablet 00:00: TABLET(S) [place] 00 BY MOUTH Medical ONCE A Branch DAY. NIFEDIPINE 2020- No [id number] TAKE ONE [facility] XL 60 mg 24 5-19 06-18 (1) ity of hr tablet 00:00: 00:00 TABLET(S) [place] 00 :00 BY MOUTH Medical ONCE A Branch DAY. NIFEDIPINE Yes [id number] TAKE ONE [facility] XL 60 mg 24 01-24 (1) ity of hr tablet 00:00: TABLET(S) [place] 00 BY MOUTH Medical ONCE A Branch DAY. NIFEDIPINE 2020- No [id number] TAKE ONE [facility] XL 60 mg 01-24 05-19 (1) ity of hr tablet 00:00: 00:00 TABLET(S) [place] 00 :00 BY MOUTH Medical ONCE A Branch DAY. isosorbide 2020-0 Yes [id number] TAKE Un [facility] mononitrate 3-12 THREE (3) ity of 30 mg 24 hr 00:00: TABLET(S) [place] tablet 00 BY MOUTH Medical DAILY. Branch isosorbide 2020-0 Yes [id number] TAKE Un [facility] mononitrate 3-12 THREE (3) ity of 30 mg 24 hr 00:00: TABLET(S) [place] tablet 00 BY MOUTH Medical DAILY. Branch isosorbide 2020-0 Yes [id number] TAKE Un [facility] mononitrate 3-12 THREE (3) ity of 30 mg 24 hr 00:00: TABLET(S) [place] tablet 00 BY MOUTH Medical DAILY. Branch isosorbide 2020-0 Yes [id number] TAKE Un [facility] mononitrate 3-12 THREE (3) ity of 30 mg 24 hr 00:00: TABLET(S) [place] tablet 00 BY MOUTH Medical DAILY. Branch isosorbide 2020-0 Yes [id number] TAKE Un [facility] mononitrate 3-12 THREE (3) ity of 30 mg 24 hr 00:00: TABLET(S) [place] tablet 00 BY MOUTH Medical DAILY. Branch isosorbide 2020-0 Yes [id number] TAKE Un [facility] mononitrate 3-12 THREE (3) ity of 30 mg 24 hr 00:00: TABLET(S) [place] tablet 00 BY MOUTH Medical DAILY. Branch isosorbide 2020-0 Yes [id number] TAKE Un [facility] mononitrate 3-12 THREE (3) ity of 30 mg 24 hr 00:00: TABLET(S) [place] tablet 00 BY MOUTH Medical DAILY. Branch isosorbide 2020-0 Yes [id number] TAKE Un [facility] mononitrate 3-12 THREE (3) ity of 30 mg 24 hr 00:00: TABLET(S) [place] tablet 00 BY MOUTH Medical DAILY. Branch isosorbide Yes [id number] TAKE Un [facility] mononitrate 3-12 THREE (3) ity of 30 mg 24 hr 00:00: TABLET(S) [place] tablet 00 BY MOUTH Medical DAILY. Branch isosorbide Yes [id number] TAKE Un [facility] mononitrate 3-12 THREE (3) ity of 30 mg 24 hr 00:00: TABLET(S) [place] tablet 00 BY MOUTH Medical DAILY. Branch isosorbide Yes [id number] TAKE Un [facility] mononitrate 3-12 THREE (3) ity of 30 mg 24 hr 00:00: TABLET(S) [place] tablet 00 BY MOUTH Medical DAILY. Branch isosorbide Yes [id number] TAKE Un [facility] mononitrate 3-12 THREE (3) ity of 30 mg 24 hr 00:00: TABLET(S) [place] tablet 00 BY MOUTH Medical DAILY. [place] isosorbide 2020- No [id number] TAKE U nivers mononitrate 3-12 07-20 THREE (3) it y of 30 mg 24 hr 00:00: 00:00 TABLET(S) [place] tablet 00 :00 BY MOUTH Medical DAILY. Branch NIFEDIPINE Yes [id number] TAKE ONE [facility] XL 60 mg 24 3-09 (1) ity of hr tablet 00:00: TABLET(S) [place] 00 BY MOUTH Medical ONCE A Branch DAY. NIFEDIPINE Yes [id number] TAKE ONE [facility] XL 60 mg 24 - (1) ity of hr tablet 00:00: TABLET(S) [place] 00 BY MOUTH Medical ONCE A Branch DAY. NIFEDIPINE 2020- No [id number] TAKE ONE [facility] XL 60 mg 24 - 04-27 (1) ity of hr tablet 00:00: 00:00 TABLET(S) [place] 00 :00 BY MOUTH Medical ONCE A Branch DAY. isosorbide 2019-09 Yes [id number] TAKE THREE [facility] mononitrate 2-17 (3) ity of 30 mg 24 hr 00:00: TABLET(S) [place] tablet 00 BY MOUTH Medical ONCE A Branch DAY. carvediloL 2019-09 Yes [id number] 25mg Take 1 U nivers 25 mg 2-17 tablet by ity of tablet 00:00: mouth 2 (two) Medical times Branch daily with meals. atorvastati 2019-09 Yes [id number] 40mg Take 1 [facility] n 40 mg 2-17 tablet by ity of tablet 00:00: mouth at [place] 00 bedtime. Medical Branch NIFEdipine 2019-09 Yes [id number] 60mg Take 1 [facility] n[facility] XL 60 mg 24 2-17 tablet by ity of hr tablet 00:00: mouth 00 daily. Medical Branch isosorbide 2019-09 Yes [id number] TAKE THREE [facility] mononitrate 2-17 (3) ity of 30 mg 24 hr 00:00: TABLET(S) [place] tablet 00 BY MOUTH Medical ONCE A Branch DAY. carvediloL 2019-09 Yes [id number] 25mg Take 1 U nivers 25 mg 2-17 tablet by ity of tablet 00:00: mouth 2 (two) Medical times [place] daily with meals. atorvastati 2019-09 Yes [id number] 40mg Take 1 [facility] n 40 mg 2-17 tablet by ity of tablet 00:00: mouth at [place] 00 bedtime. Medical Branch NIFEdipine 2019-09 Yes [id number] 60mg Take 1 [facility] n[facility] XL 60 mg 24 2-17 tablet by ity of hr tablet 00:00: mouth 00 daily. Medical Branch isosorbide 2019-09 Yes [id number] TAKE THREE [facility] mononitrate 2-17 (3) ity of 30 mg 24 hr 00:00: TABLET(S) [place] tablet 00 BY MOUTH Medical ONCE A Branch DAY. carvediloL 2019-09 Yes [id number] 25mg Take 1 [facility] n[facility] 25 mg 2-17 tablet by ity of tablet 00:00: mouth 2 (two) Medical times [place] daily with meals. atorvastati 2019-09 Yes [id number] 40mg Take 1 [facility] n 40 mg 2-17 tablet by ity of tablet 00:00: mouth at [place] 00 bedtime. Medical Branch NIFEdipine 2019-09 Yes [id number] 60mg Take 1 [facility] n[facility] XL 60 mg 24 2-17 tablet by ity of hr tablet 00:00: mouth 00 daily. Medical Branch isosorbide 2019-09 Yes [id number] TAKE THREE [facility] mononitrate 2-17 (3) ity of 30 mg 24 hr 00:00: TABLET(S) [place] tablet 00 BY MOUTH Medical ONCE A DAY. carvediloL 2019-09 Yes [id number] 25mg Take 1 [facility] n[facility] 25 mg 2-17 tablet by ity of tablet 00:00: mouth 2 [place] (two) Medical times Branch daily with meals. atorvastati 2019-09 Yes [id number] 40mg Take 1 [facility] n 40 mg 2-17 tablet by ity of tablet 00:00: mouth at [place] bedtime. Medical Branch carvediloL 2019-09 Yes [id number] 25mg Take 1 [facility] n[facility] 25 mg 2-17 tablet by ity of tablet 00:00: mouth 2 [place] (two) Medical times Branch daily with meals. atorvastati 2019-09 Yes [id number] 40mg Take 1 [facility] n 40 mg 2-17 tablet by ity of tablet 00:00: mouth at [place] bedtime. Medical Branch carvediloL 2019-09 Yes [id number] 25mg Take 1 [facility] n[facility] 25 mg 2-17 tablet by ity of tablet 00:00: mouth [place] (two) Medical times Branch daily with meals. atorvastati 2019-09 Yes [id number] 40mg Take 1 [facility] n 40 mg 2-17 tablet by ity of tablet 00:00: mouth at [place] bedtime. Medical Branch carvediloL 2019-09 Yes [id number] 25mg Take 1 [facility] n[facility] 25 mg 2-17 tablet by ity of tablet 00:00: mouth [place] (two) Medical times Branch daily with meals. atorvastati 2019-09 Yes [id number] 40mg Take 1 [facility] n 40 mg 2-17 tablet by ity of tablet 00:00: mouth at [place] [address] bedtime. Medical Branch carvediloL 2019-09 Yes [id number] 25mg Take 1 [facility] n[facility] 25 mg 2-17 tablet by ity of tablet 00:00: mouth [place] (two) Medical times Branch daily with meals. atorvastati 2019-09 Yes [id number] 40mg Take 1 [facility] n 40 mg 2-17 tablet by ity of tablet 00:00: mouth at [place] [address] bedtime. Medical Branch carvediloL 2019-09 Yes [id number] 25mg Take 1 [facility] n[facility] 25 mg 2-17 tablet by ity of tablet 00:00: mouth 2 (two) Medical times Branch daily with meals. atorvastati 2019-09 Yes [id number] 40mg Take 1 [facility] n 40 mg 2-17 tablet by ity of tablet 00:00: mouth at [place] bedtime. Medical Branch carvediloL 2019-09 Yes [id number] 25mg Take 1 [facility] 25 mg 2-17 tablet by ity of tablet 00:00: mouth 2 (two) Medical times Branch daily with meals. atorvastati 2019-09 Yes [id number] 40mg Take 1 [facility] n 40 mg 2-17 tablet by ity of tablet 00:00: mouth at [place] bedtime. Medical Branch carvediloL 2019-09 Yes [id number] 25mg Take 1 [facility] n[facility] 25 mg 2-17 tablet by ity of tablet 00:00: mouth 2 (two) Medical times Branch daily with meals. atorvastati 2019-09 Yes [id number] 40mg Take 1 [facility] n 40 mg 2-17 tablet by ity of tablet 00:00: mouth at [place] bedtime. Medical Branch carvediloL 2019-09 Yes [id number] 25mg Take 1 [facility] 25 mg 2-17 tablet by ity of tablet 00:00: mouth 2 [place] (two) Medical times Branch daily with meals. atorvastati 2019-09 Yes [id number] 40mg Take 1 [facility] n 40 mg 2-17 tablet by ity of tablet 00:00: mouth at [place] bedtime. Medical Branch carvediloL 2019-09 Yes [id number] 25mg Take 1 [facility] 25 mg 2-17 tablet by ity of tablet 00:00: mouth 2 [place] (two) Medical times Branch daily with meals. atorvastati 2019-09 Yes [id number] 40mg Take 1 [facility] n 40 mg 2-17 tablet by ity of tablet 00:00: mouth at [place] bedtime. Medical Branch carvediloL 2019-09 Yes [id number] 25mg Take 1 [facility] 25 mg 2-17 tablet by ity of tablet 00:00: mouth 2 [place] (two) Medical times Branch daily with meals. atorvastati 2019-09 Yes [id number] 40mg Take 1 [facility] n 40 mg 2-17 tablet by ity of tablet 00:00: mouth at [place] [address] bedtime. Medical Branch carvediloL 2019- Yes [id number] 25mg Take 1 [facility] 25 mg 2-17 tablet by ity of tablet 00:00: mouth 2 [place] (two) Medical times Branch daily with meals. atorvastati 2019- Yes [id number] 40mg Take 1 [facility] n 40 mg 2-17 tablet by ity of tablet 00:00: mouth at [place] [address] bedtime. Medical Branch carvediloL 2019- Yes [id number] 25mg Take 1 [facility] 25 mg 2-17 tablet by ity of tablet 00:00: mouth 2 [place] (two) Medical times Branch daily with meals. atorvastati 2019-09 Yes [id number] 40mg Take 1 [facility] n 40 mg 2-17 tablet by ity of tablet 00:00: mouth at [place] [address] bedtime. Medical Branch carvediloL 2019- Yes [id number] 25mg Take 1 [facility] 25 mg 2-17 tablet by ity of tablet 00:00: mouth 2 [place] (two) Medical times Branch daily with meals. atorvastati 2019-09 Yes [id number] 40mg Take 1 [facility] n 40 mg 2-17 tablet by ity of tablet 00:00: mouth at [place] [address] bedtime. Medical Branch atorvastati 2019-09 Yes [id number] 40mg Take 1 [facility] n 40 mg 2-17 tablet by ity of tablet 00:00: mouth at [place] [address] bedtime. Medical Branch atorvastati 2019- Yes [id number] 40mg Take 1 [facility] n 40 mg 2-17 tablet by ity of tablet 00:00: mouth at [place] [address] bedtime. Medical Branch atorvastati 2019- Yes [id number] 40mg Take 1 [facility] n 40 mg 2-17 tablet by ity of tablet 00:00: mouth at [place] [address] bedtime. Medical Branch atorvastati 2019- Yes [id number] 40mg Take 1 [facility] n 40 mg 2-17 tablet by ity of tablet 00:00: mouth at [place] [address] bedtime. Medical Branch atorvastati 2019- Yes [id number] 40mg Take 1 [facility] n 40 mg 2-17 tablet by ity of tablet 00:00: mouth at [place] [address] bedtime. Medical Branch atorvastati 2019- Yes [id number] 40mg Take 1 [facility] n 40 mg 2-17 tablet by ity of tablet 00:00: mouth at [place] [address] bedtime. Medical Branch atorvastati 2019- Yes [id number] 40mg Take 1 [facility] n 40 mg 2-17 tablet by ity of tablet 00:00: mouth at [place] [address] bedtime. Medical Branch atorvastati 2019- Yes [id number] 40mg Take 1 [facility] n 40 mg 2-17 tablet by ity of tablet 00:00: mouth at [place] [address] bedtime. Medical Branch atorvastati 2019- Yes [id number] 40mg Take 1 [facility] n 40 mg 2-17 tablet by ity of tablet 00:00: mouth at [place] [address] bedtime. Medical Branch atorvastati 2019- Yes [id number] 40mg Take 1 [facility] n 40 mg 2-17 tablet by ity of tablet 00:00: mouth at [place] [address] bedtime. Medical Branch atorvastati 2019- Yes [id number] 40mg Take 1 [facility] n 40 mg 2-17 tablet by ity of tablet 00:00: mouth at [place] [address] bedtime. Medical Branch atorvastati 2019- Yes [id number] 40mg Take 1 [facility] n 40 mg 2-17 tablet by ity of tablet 00:00: mouth at [place] [address] bedtime. Medical Branch atorvastati 2019- Yes [id number] 40mg Take 1 [facility] n 40 mg 2-17 tablet by ity of tablet 00:00: mouth at [place] [address] bedtime. Medical Branch atorvastati 2019- Yes [id number] 40mg Take 1 [facility] n 40 mg 2-17 tablet by ity of tablet 00:00: mouth at [place] [address] bedtime. Medical Branch atorvastati 2019- Yes [id number] 40mg Take 1 [facility] n 40 mg 2-17 tablet by ity of tablet 00:00: mouth at [place] [address] bedtime. Medical Branch atorvastati 2019- Yes [id number] 40mg Take 1 [facility] n 40 mg 2-17 tablet by ity of tablet 00:00: mouth at [place] [address] bedtime. Medical Branch atorvastati 2019- Yes [id number] 40mg Take 1 [facility] n 40 mg 2-17 tablet by ity of tablet 00:00: mouth at [place] [address] bedtime. Medical Branch atorvastati 2019- Yes [id number] 40mg Take 1 [facility] n 40 mg 2-17 tablet by ity of tablet 00:00: mouth at [place] 00 bedtime. Medical Branch atorvastati 2019- Yes [id number] 40mg Take 1 [facility] n 40 mg 2-17 tablet by ity of tablet 00:00: mouth at [place] 00 bedtime. Medical Branch atorvastati 2019- Yes [id number] 40mg Take 1 [facility] n 40 mg 2-17 tablet by ity of tablet 00:00: mouth at [place] 00 bedtime. Medical Branch atorvastati 2019- Yes [id number] 40mg Take 1 [facility] n 40 mg 2-17 tablet by ity of tablet 00:00: mouth at [place] 00 bedtime. Medical Branch atorvastati 2019-09 Yes [id number] 40mg Take 1 [facility] n 40 mg 2-17 tablet by ity of tablet 00:00: mouth at [place] 00 bedtime. Medical Branch atorvasta 2019-09 Yes [id number] 40mg Take 1 [facility] n 40 mg 2-17 tablet by ity of tablet 00:00: mouth at [place] 00 bedtime. Medical Branch atorvastati 2019-09 Yes [id number] 40mg Take 1 [facility] n 40 mg 2-17 tablet by ity of tablet 00:00: mouth at [place] 00 bedtime. Medical Branch atorvastati 2019-09 Yes [id number] 40mg Take 1 [facility] n 40 mg 2-17 tablet by ity of tablet 00:00: mouth at [place] 00 bedtime. Medical Branch atorvastati 2019-09 Yes [id number] 40mg Take 1 [facility] n 40 mg 2-17 tablet by ity of tablet 00:00: mouth at [place] 00 bedtime. [facility] Branch atorvastati 2019-09- No [id number] 40mg Take 1 [facility] n 40 mg 2-17 - tablet by ity of tablet 00:00: 00:00 mouth at [place] 00 :00 bedtime. [facility] atorvastati 2019-09- No [id number] 40mg Take 1 [facility] n 40 mg 2-17 - tablet by ity of tablet 00:00: 00:00 mouth at [place] 00 :00 bedtime. Medical [facility] carvediloL 2019-09- No [id number] 25mg Take 1 [facility] 25 mg 2-17 -22 tablet by ity of tablet 00:00: 00:00 mouth 2 [place] 00 :00 (two) Medical times [place] daily with meals. isosorbide 2019-09- No [id number] TAKE THREE [facility] mononitrate 11-16 (3) ity of 30 mg 24 hr 00:00: 00:00 TABLET(S) [place] tablet 00 :00 BY MOUTH Medical ONCE A Branch DAY. NIFEdipine 2019-09- No [id number] 60mg Take 1 [facility] XL 60 mg 24 11-16 tablet by it y of hr tablet 00:00: 00:00 mouth [place] 00 :00 daily. Medical Branch NITROGLYCER 2019-09 Yes [id number] DISSOLVE [facility] IN 0.4 mg 2-15 ONE (1) ity of sublingual 00:00: TABLET(S) [place] tablet 00 BY MOUTH Medical UNDER THE Branch TONGUE ONCE EVERY 5 MINUTES NEEDED FOR CHEST PAIN. NITROGLYCER 2019-09 Yes [id number] DISSOLVE [facility] IN 0.4 mg 2-15 ONE (1) ity of sublingual 00:00: TABLET(S) [place] tablet 00 BY MOUTH Medical UNDER THE Branch TONGUE ONCE EVERY 5 MINUTES NEEDED FOR CHEST PAIN. NITROGLYCER 2019-09 Yes [id number] DISSOLVE [facility] IN 0.4 mg 2-15 ONE (1) ity of sublingual 00:00: TABLET(S) [place] tablet 00 BY MOUTH Medical UNDER THE Branch TONGUE ONCE EVERY 5 MINUTES NEEDED FOR CHEST PAIN. NITROGLYCER 2019-09 Yes [id number] DISSOLVE [facility] IN 0.4 mg 2-15 ONE (1) ity of sublingual 00:00: TABLET(S) [place] tablet 00 BY MOUTH Medical UNDER THE Branch TONGUE ONCE EVERY 5 MINUTES NEEDED FOR CHEST PAIN. NITROGLYCER 2019-09 Yes [id number] DISSOLVE [facility] IN 0.4 mg 2-15 ONE (1) ity of sublingual 00:00: TABLET(S) [place] tablet 00 BY MOUTH Medical UNDER THE Branch TONGUE ONCE EVERY 5 MINUTES NEEDED FOR CHEST PAIN. NITROGLYCER 2019-09 Yes [id number] DISSOLVE [facility] IN 0.4 mg 2-15 ONE (1) ity of sublingual 00:00: TABLET(S) [place] tablet 00 BY MOUTH Medical UNDER THE Branch TONGUE ONCE EVERY 5 MINUTES NEEDED FOR CHEST PAIN. NITROGLYCER 2019-09 Yes [id number] DISSOLVE [facility] IN 0.4 mg 2-15 ONE (1) ity of sublingual 00:00: TABLET(S) [place] tablet 00 BY MOUTH Medical UNDER THE Branch TONGUE ONCE EVERY 5 MINUTES NEEDED FOR CHEST PAIN. NITROGLYCER 2019- Yes [id number] DISSOLVE [facility] IN 0.4 mg 2-15 ONE (1) ity of sublingual 00:00: TABLET(S) [place] tablet 00 BY MOUTH Medical UNDER THE Branch TONGUE ONCE EVERY 5 MINUTES NEEDED FOR CHEST PAIN. NITROGLYCER 2019- Yes [id number] DISSOLVE [facility] IN 0.4 mg 2-15 ONE (1) ity of sublingual 00:00: TABLET(S) [place] tablet 00 BY MOUTH Medical UNDER THE Branch TONGUE ONCE EVERY 5 MINUTES NEEDED FOR CHEST PAIN. NITROGLYCER 2019-09 Yes [id number] DISSOLVE [facility] IN 0.4 mg 2-15 ONE (1) ity of sublingual 00:00: TABLET(S) [place] tablet 00 BY MOUTH Medical UNDER THE Branch TONGUE ONCE EVERY 5 MINUTES NEEDED FOR CHEST PAIN. NITROGLYCER 2019-09 Yes [id number] DISSOLVE [facility] IN 0.4 mg 2-15 ONE (1) ity of sublingual 00:00: TABLET(S) [place] tablet 00 BY MOUTH Medical UNDER THE Branch TONGUE ONCE EVERY 5 MINUTES NEEDED FOR CHEST PAIN. NITROGLYCER 2019-09 Yes [id number] DISSOLVE [facility] IN 0.4 mg 2-15 ONE (1) ity of sublingual 00:00: TABLET(S) [place] tablet 00 BY MOUTH Medical UNDER THE Branch TONGUE ONCE EVERY 5 MINUTES NEEDED FOR CHEST PAIN. NITROGLYCER 2019-09 Yes [id number] DISSOLVE [facility] IN 0.4 mg 2-15 ONE (1) ity of sublingual 00:00: TABLET(S) [place] tablet 00 BY MOUTH Medical UNDER THE Branch TONGUE ONCE EVERY 5 MINUTES NEEDED FOR CHEST PAIN. NITROGLYCER 2019- Yes [id number] DISSOLVE [facility] IN 0.4 mg 2-15 ONE (1) ity of sublingual 00:00: TABLET(S) [place] tablet 00 BY MOUTH Medical UNDER THE Branch TONGUE ONCE EVERY 5 MINUTES NEEDED FOR CHEST PAIN. NITROGLYCER 2019-09 Yes [id number] DISSOLVE [facility] IN 0.4 mg 2-15 ONE (1) ity of sublingual 00:00: TABLET(S) [place] tablet 00 BY MOUTH Medical UNDER THE Branch TONGUE ONCE EVERY 5 MINUTES NEEDED FOR CHEST PAIN. NITROGLYCER 2019- Yes [id number] DISSOLVE [facility] IN 0.4 mg 2-15 ONE (1) ity of sublingual 00:00: TABLET(S) [place] tablet 00 BY MOUTH Medical UNDER THE Branch TONGUE ONCE EVERY 5 MINUTES NEEDED FOR CHEST PAIN. NITROGLYCER 2019-09 Yes [id number] DISSOLVE [facility] IN 0.4 mg 2-15 ONE (1) ity of sublingual 00:00: TABLET(S) [place] tablet 00 BY MOUTH Medical UNDER THE Branch TONGUE ONCE EVERY 5 MINUTES NEEDED FOR CHEST PAIN. NITROGLYCER 2019-09 Yes [id number] DISSOLVE [facility] IN 0.4 mg 2-15 ONE (1) ity of sublingual 00:00: TABLET(S) [place] tablet 00 BY MOUTH Medical UNDER THE Branch TONGUE ONCE EVERY 5 MINUTES NEEDED FOR CHEST PAIN. NITROGLYCER 2019-09 Yes [id number] DISSOLVE [facility] IN 0.4 mg 2-15 ONE (1) ity of sublingual 00:00: TABLET(S) [place] tablet 00 BY MOUTH Medical UNDER THE Branch TONGUE ONCE EVERY 5 MINUTES NEEDED FOR CHEST PAIN. NITROGLYCER 2019-09 Yes [id number] DISSOLVE [facility] IN 0.4 mg 2-15 ONE (1) ity of sublingual 00:00: TABLET(S) [place] tablet 00 BY MOUTH Medical UNDER THE Branch TONGUE ONCE EVERY 5 MINUTES NEEDED FOR CHEST PAIN. NITROGLYCER 2019-09 Yes [id number] DISSOLVE [facility] IN 0.4 mg 2-15 ONE (1) ity of sublingual 00:00: TABLET(S) [place] tablet 00 BY MOUTH Medical UNDER THE Branch TONGUE ONCE EVERY 5 MINUTES NEEDED FOR CHEST PAIN. NITROGLYCER 2019-09 Yes [id number] DISSOLVE [facility] IN 0.4 mg 2-15 ONE (1) ity of sublingual 00:00: TABLET(S) [place] tablet 00 BY MOUTH Medical UNDER THE Branch TONGUE ONCE EVERY 5 MINUTES NEEDED FOR CHEST PAIN. NITROGLYCER 2019-09 Yes [id number] DISSOLVE [facility] IN 0.4 mg 2-15 ONE (1) ity of sublingual 00:00: TABLET(S) [place] tablet 00 BY MOUTH Medical UNDER THE Branch TONGUE ONCE EVERY 5 MINUTES NEEDED FOR CHEST PAIN. NITROGLYCER 2019-09 Yes [id number] DISSOLVE [facility] IN 0.4 mg 2-15 ONE (1) ity of sublingual 00:00: TABLET(S) [place] tablet 00 BY MOUTH Medical UNDER THE Branch TONGUE ONCE EVERY 5 MINUTES NEEDED FOR CHEST PAIN. NITROGLYCER 2019- Yes [id number] DISSOLVE [facility] IN 0.4 mg 2-15 ONE (1) ity of sublingual 00:00: TABLET(S) [place] tablet 00 BY MOUTH Medical UNDER THE Branch TONGUE ONCE EVERY 5 MINUTES NEEDED FOR CHEST PAIN. NITROGLYCER 2019- Yes [id number] DISSOLVE [facility] IN 0.4 mg 2-15 ONE (1) ity of sublingual 00:00: TABLET(S) [place] tablet 00 BY MOUTH Medical UNDER THE Branch TONGUE ONCE EVERY 5 MINUTES NEEDED FOR CHEST PAIN. NITROGLYCER 2019- Yes [id number] DISSOLVE [facility] IN 0.4 mg 2-15 ONE (1) ity of sublingual 00:00: TABLET(S) [place] tablet 00 BY MOUTH Medical UNDER THE Branch TONGUE ONCE EVERY 5 MINUTES NEEDED FOR CHEST PAIN. NITROGLYCER 2019-09 Yes [id number] DISSOLVE [facility] IN 0.4 mg 2-15 ONE (1) ity of sublingual 00:00: TABLET(S) [place] tablet 00 BY MOUTH Medical UNDER THE Branch TONGUE ONCE EVERY 5 MINUTES NEEDED FOR CHEST PAIN. NITROGLYCER 2019-09 Yes [id number] DISSOLVE [facility] IN 0.4 mg 2-15 ONE (1) ity of sublingual 00:00: TABLET(S) [place] tablet 00 BY MOUTH Medical UNDER THE Branch TONGUE ONCE EVERY 5 MINUTES NEEDED FOR CHEST PAIN. NITROGLYCER 2019- Yes [id number] DISSOLVE [facility] IN 0.4 mg 2-15 ONE (1) ity of sublingual 00:00: TABLET(S) [place] tablet 00 BY MOUTH Medical UNDER THE Branch TONGUE ONCE EVERY 5 MINUTES NEEDED FOR CHEST PAIN. NITROGLYCER 2019-09 Yes [id number] DISSOLVE [facility] IN 0.4 mg 2-15 ONE (1) ity of sublingual 00:00: TABLET(S) [place] tablet 00 BY MOUTH Medical UNDER THE Branch TONGUE ONCE EVERY 5 MINUTES NEEDED FOR CHEST PAIN. NITROGLYCER 2019- Yes [id number] DISSOLVE [facility] IN 0.4 mg 2-15 ONE (1) ity of sublingual 00:00: TABLET(S) [place] tablet 00 BY MOUTH Medical UNDER THE Branch TONGUE ONCE EVERY 5 MINUTES NEEDED FOR CHEST PAIN. NITROGLYCER 2019-1 Yes [id number] DISSOLVE [facility] IN 0.4 mg 2-15 ONE (1) ity of sublingual 00:00: TABLET(S) [place] tablet 00 BY MOUTH Medical UNDER THE Branch TONGUE ONCE EVERY 5 MINUTES NEEDED FOR CHEST PAIN. NITROGLYCER 2019- Yes [id number] DISSOLVE [facility] IN 0.4 mg 2-15 ONE (1) ity of sublingual 00:00: TABLET(S) [place] tablet 00 BY MOUTH Medical UNDER THE Branch TONGUE ONCE EVERY 5 MINUTES NEEDED FOR CHEST PAIN. NITROGLYCER 2019- Yes [id number] DISSOLVE [facility] IN 0.4 mg 2-15 ONE (1) ity of sublingual 00:00: TABLET(S) [place] tablet 00 BY MOUTH Medical UNDER THE Branch TONGUE ONCE EVERY 5 MINUTES NEEDED FOR CHEST PAIN. NITROGLYCER 2019-09 Yes [id number] DISSOLVE [facility] IN 0.4 mg 2-15 ONE (1) ity of sublingual 00:00: TABLET(S) [place] tablet 00 BY MOUTH Medical UNDER THE Branch TONGUE ONCE EVERY 5 MINUTES NEEDED FOR CHEST PAIN. NITROGLYCER 2019-09 Yes [id number] DISSOLVE [facility] IN 0.4 mg 2-15 ONE (1) ity of sublingual 00:00: TABLET(S) [place] tablet 00 BY MOUTH Medical UNDER THE Branch TONGUE ONCE EVERY 5 MINUTES NEEDED FOR CHEST PAIN. NITROGLYCER 2019-09 Yes [id number] DISSOLVE [facility] IN 0.4 mg 2-15 ONE (1) ity of sublingual 00:00: TABLET(S) [place] tablet 00 BY MOUTH Medical UNDER THE Branch TONGUE ONCE EVERY 5 MINUTES NEEDED FOR CHEST PAIN. NITROGLYCER 2019- Yes [id number] DISSOLVE [facility] IN 0.4 mg 2-15 ONE (1) ity of sublingual 00:00: TABLET(S) [place] tablet 00 BY MOUTH Medical UNDER THE Branch TONGUE ONCE EVERY 5 MINUTES NEEDED FOR CHEST PAIN. NITROGLYCER 2019-09 Yes [id number] DISSOLVE [facility] IN 0.4 mg 2-15 ONE (1) ity of sublingual 00:00: TABLET(S) [place] tablet 00 BY MOUTH Medical UNDER THE Branch TONGUE ONCE EVERY 5 MINUTES NEEDED FOR CHEST PAIN. NITROGLYCER 2019- Yes [id number] DISSOLVE [facility] IN 0.4 mg 2-15 ONE (1) ity of sublingual 00:00: TABLET(S) [place] tablet 00 BY MOUTH Medical UNDER THE Branch TONGUE ONCE EVERY 5 MINUTES NEEDED FOR CHEST PAIN. NITROGLYCER 2019-09 Yes [id number] DISSOLVE [facility] IN 0.4 mg 2-15 ONE (1) ity of sublingual 00:00: TABLET(S) [place] tablet 00 BY MOUTH Medical UNDER THE Branch TONGUE ONCE EVERY 5 MINUTES NEEDED FOR CHEST PAIN. NITROGLYCER 2019-09 Yes [id number] DISSOLVE [facility] IN 0.4 mg 2-15 ONE (1) ity of sublingual 00:00: TABLET(S) [place] tablet 00 BY MOUTH Medical UNDER THE Branch TONGUE ONCE EVERY 5 MINUTES NEEDED FOR CHEST PAIN. NITROGLYCER 2019-09 Yes [id number] DISSOLVE [facility] IN 0.4 mg 2-15 ONE (1) ity of sublingual 00:00: TABLET(S) [place] tablet 00 BY MOUTH Medical UNDER THE Branch TONGUE ONCE EVERY 5 MINUTES NEEDED FOR CHEST PAIN. NITROGLYCER 2019-09 Yes [id number] DISSOLVE [facility] IN 0.4 mg 2-15 ONE (1) ity of sublingual 00:00: TABLET(S) [place] tablet 00 BY MOUTH Medical UNDER THE Branch TONGUE ONCE EVERY 5 MINUTES NEEDED FOR CHEST PAIN. NITROGLYCER 2019-09 Yes [id number] DISSOLVE [facility] IN 0.4 mg 2-15 ONE (1) ity of sublingual 00:00: TABLET(S) [place] tablet 00 BY MOUTH Medical UNDER THE Branch TONGUE ONCE EVERY 5 MINUTES NEEDED FOR CHEST PAIN. NITROGLYCER 2019-09 Yes [id number] DISSOLVE [facility] IN 0.4 mg 2-15 ONE (1) ity of sublingual 00:00: TABLET(S) [place] tablet 00 BY MOUTH Medical UNDER THE Branch TONGUE ONCE EVERY 5 MINUTES NEEDED FOR CHEST PAIN. NITROGLYCER 2019-09 Yes [id number] DISSOLVE [facility] IN 0.4 mg 2-15 ONE (1) ity of sublingual 00:00: TABLET(S) [place] tablet 00 BY MOUTH Medical UNDER THE Branch TONGUE ONCE EVERY 5 MINUTES NEEDED FOR CHEST PAIN. NITROGLYCER 2019-09 Yes [id number] DISSOLVE [facility] IN 0.4 mg 2-15 ONE (1) ity of sublingual 00:00: TABLET(S) [place] tablet 00 BY MOUTH Medical UNDER THE Branch TONGUE ONCE EVERY 5 MINUTES NEEDED FOR CHEST PAIN. NITROGLYCER 2019-09 Yes [id number] DISSOLVE [facility] IN 0.4 mg 2-15 ONE (1) ity of sublingual 00:00: TABLET(S) [place] tablet 00 BY MOUTH Medical UNDER THE Branch TONGUE ONCE EVERY 5 MINUTES NEEDED FOR CHEST PAIN. NITROGLYCER 2019- Yes [id number] DISSOLVE [facility] IN 0.4 mg 2-15 ONE (1) ity of sublingual 00:00: TABLET(S) [place] tablet 00 BY MOUTH Medical UNDER THE Branch TONGUE ONCE EVERY 5 MINUTES NEEDED FOR CHEST PAIN. NITROGLYCER 2019-09 Yes [id number] DISSOLVE [facility] IN 0.4 mg 2-15 ONE (1) ity of sublingual 00:00: TABLET(S) [place] tablet 00 BY MOUTH Medical UNDER THE Branch TONGUE ONCE EVERY 5 MINUTES NEEDED FOR CHEST PAIN. NITROGLYCER 2019-09 Yes [id number] DISSOLVE [facility] IN 0.4 mg 2-15 ONE (1) ity of sublingual 00:00: TABLET(S) [place] tablet 00 BY MOUTH Medical UNDER THE Branch TONGUE ONCE EVERY 5 MINUTES NEEDED FOR CHEST PAIN. NITROGLYCER 2019-09 Yes [id number] DISSOLVE [facility] IN 0.4 mg 2-15 ONE (1) ity of sublingual 00:00: TABLET(S) [place] tablet 00 BY MOUTH Medical UNDER THE Branch TONGUE ONCE EVERY 5 MINUTES NEEDED FOR CHEST PAIN. NITROGLYCER 2019-09 Yes [id number] DISSOLVE [facility] IN 0.4 mg 2-15 ONE (1) ity of sublingual 00:00: TABLET(S) [place] tablet 00 BY MOUTH Medical UNDER THE Branch TONGUE ONCE EVERY 5 MINUTES NEEDED FOR CHEST PAIN. NITROGLYCER 2019-09 Yes [id number] DISSOLVE [facility] IN 0.4 mg 2-15 ONE (1) ity of sublingual 00:00: TABLET(S) [place] tablet 00 BY MOUTH Medical UNDER THE Branch TONGUE ONCE EVERY 5 MINUTES NEEDED FOR CHEST PAIN. NITROGLYCER 2019-09 Yes [id number] DISSOLVE [facility] IN 0.4 mg 2-15 ONE (1) ity of sublingual 00:00: TABLET(S) [place] tablet 00 BY MOUTH Medical UNDER THE Branch TONGUE ONCE EVERY 5 MINUTES NEEDED FOR CHEST PAIN. NITROGLYCER 2019-09 Yes [id number] DISSOLVE [facility] IN 0.4 mg 2-15 ONE (1) ity of sublingual 00:00: TABLET(S) [place] tablet 00 BY MOUTH Medical UNDER THE Branch TONGUE ONCE EVERY 5 MINUTES NEEDED FOR CHEST PAIN. NITROGLYCER 2019-09 Yes [id number] DISSOLVE [facility] IN 0.4 mg 2-15 ONE (1) ity of sublingual 00:00: TABLET(S) [place] tablet 00 BY MOUTH Medical UNDER THE Branch TONGUE ONCE EVERY 5 MINUTES NEEDED FOR CHEST PAIN. NITROGLYCER 2019-09 Yes [id number] DISSOLVE [facility] IN 0.4 mg 2-15 ONE (1) ity of sublingual 00:00: TABLET(S) [place] tablet 00 BY MOUTH Medical UNDER THE Branch TONGUE ONCE EVERY 5 MINUTES NEEDED FOR CHEST PAIN. NITROGLYCER 2019-09 Yes [id number] DISSOLVE [facility] IN 0.4 mg 2-15 ONE (1) ity of sublingual 00:00: TABLET(S) [place] tablet 00 BY MOUTH Medical UNDER THE Branch TONGUE ONCE EVERY 5 MINUTES NEEDED FOR CHEST PAIN. NITROGLYCER 2019-09 Yes [id number] DISSOLVE [facility] IN 0.4 mg 2-15 ONE (1) ity of sublingual 00:00: TABLET(S) [place] tablet 00 BY MOUTH Medical UNDER THE Branch TONGUE ONCE EVERY 5 MINUTES NEEDED FOR CHEST PAIN. NITROGLYCER 2019-09 Yes [id number] DISSOLVE [facility] IN 0.4 mg 2-15 ONE (1) ity of sublingual 00:00: TABLET(S) [place] tablet 00 BY MOUTH Medical UNDER THE Branch TONGUE ONCE EVERY 5 MINUTES NEEDED FOR CHEST PAIN. NITROGLYCER 2019-09 Yes [id number] DISSOLVE [facility] IN 0.4 mg 2-15 ONE (1) ity of sublingual 00:00: TABLET(S) [place] tablet 00 BY MOUTH Medical UNDER THE Branch TONGUE ONCE EVERY 5 MINUTES NEEDED FOR CHEST PAIN. NITROGLYCER 2019-09 Yes [id number] DISSOLVE [facility] IN 0.4 mg 2-15 ONE (1) ity of sublingual 00:00: TABLET(S) [place] tablet 00 BY MOUTH Medical UNDER THE Branch TONGUE ONCE EVERY 5 MINUTES NEEDED FOR CHEST PAIN. NITROGLYCER 2019-09 Yes [id number] DISSOLVE [facility] IN 0.4 mg 2-15 ONE (1) ity of sublingual 00:00: TABLET(S) [place] tablet 00 BY MOUTH Medical UNDER THE Branch TONGUE ONCE EVERY 5 MINUTES NEEDED FOR CHEST PAIN. NITROGLYCER 2019-09 Yes [id number] DISSOLVE [facility] IN 0.4 mg 2-15 ONE (1) ity of sublingual 00:00: TABLET(S) [place] tablet 00 BY MOUTH Medical UNDER THE Branch TONGUE ONCE EVERY 5 MINUTES NEEDED FOR CHEST PAIN. NITROGLYCER 2019- Yes [id number] DISSOLVE [facility] IN 0.4 mg 2-15 ONE (1) ity of sublingual 00:00: TABLET(S) [place] tablet 00 BY MOUTH Medical UNDER THE Branch TONGUE ONCE EVERY 5 MINUTES NEEDED FOR CHEST PAIN. NITROGLYCER 2019- Yes [id number] DISSOLVE [facility] IN 0.4 mg 2-15 ONE (1) ity of sublingual 00:00: TABLET(S) [place] tablet 00 BY MOUTH Medical UNDER THE Branch TONGUE ONCE EVERY 5 MINUTES NEEDED FOR CHEST PAIN. NITROGLYCER 2019-09 Yes [id number] DISSOLVE [facility] IN 0.4 mg 2-15 ONE (1) ity of sublingual 00:00: TABLET(S) [place] tablet 00 BY MOUTH Medical UNDER THE Branch TONGUE ONCE EVERY 5 MINUTES NEEDED FOR CHEST PAIN. NITROGLYCER 2019-09 Yes [id number] DISSOLVE [facility] IN 0.4 mg 2-15 ONE (1) ity of sublingual 00:00: TABLET(S) [place] tablet 00 BY MOUTH Medical UNDER THE Branch TONGUE ONCE EVERY 5 MINUTES NEEDED FOR CHEST PAIN. NITROGLYCER 2019-09 Yes [id number] DISSOLVE [facility] IN 0.4 mg 2-15 ONE (1) ity of sublingual 00:00: TABLET(S) [place] tablet 00 BY MOUTH Medical UNDER THE Branch TONGUE ONCE EVERY 5 MINUTES NEEDED FOR CHEST PAIN. NITROGLYCER 2019-09 Yes [id number] DISSOLVE [facility] IN 0.4 mg 2-15 ONE (1) ity of sublingual 00:00: TABLET(S) [place] tablet 00 BY MOUTH Medical UNDER THE Branch TONGUE ONCE EVERY 5 MINUTES NEEDED FOR CHEST PAIN. NITROGLYCER 2019- Yes [id number] DISSOLVE [facility] IN 0.4 mg 2-15 ONE (1) ity of sublingual 00:00: TABLET(S) [place] tablet 00 BY MOUTH Medical UNDER THE Branch TONGUE ONCE EVERY 5 MINUTES NEEDED FOR CHEST PAIN. NITROGLYCER 2019- Yes [id number] DISSOLVE [facility] IN 0.4 mg 2-15 ONE (1) ity of sublingual 00:00: TABLET(S) [place] tablet 00 BY MOUTH Medical UNDER THE Branch TONGUE ONCE EVERY 5 MINUTES NEEDED FOR CHEST PAIN. NITROGLYCER 2019- Yes [id number] DISSOLVE [facility] IN 0.4 mg 2-15 ONE (1) ity of sublingual 00:00: TABLET(S) [place] tablet 00 BY MOUTH Medical UNDER THE Branch TONGUE ONCE EVERY 5 MINUTES NEEDED FOR CHEST PAIN. NITROGLYCER 2019-09 Yes [id number] DISSOLVE [facility] IN 0.4 mg 2-15 ONE (1) ity of sublingual 00:00: TABLET(S) [place] tablet 00 BY MOUTH Medical UNDER THE Branch TONGUE ONCE EVERY 5 MINUTES NEEDED FOR CHEST PAIN. NITROGLYCER 2019-09- No [id number] DISSOLVE [facility] IN 0.4 mg 2-15 06-06 ONE (1) ity of sublingual 00:00: 00:00 TABLET(S) [place] tablet 00 :00 BY MOUTH Medical UNDER THE Branch TONGUE ONCE EVERY 5 MINUTES NEEDED FOR CHEST PAIN. NITROGLYCER 2019-09- No [id number] DISSOLVE [facility] IN 0.4 mg 2-15 06-06 ONE (1) ity of sublingual 00:00: 00:00 TABLET(S) [place] tablet 00 :00 BY MOUTH Medical UNDER THE Branch TONGUE ONCE EVERY 5 MINUTES NEEDED FOR CHEST PAIN. NITROGLYCER 2019-09- No [id number] DISSOLVE [facility] IN 0.4 mg 2-15 06-06 ONE (1) ity of sublingual 00:00: 00:00 TABLET(S) [place] tablet 00 :00 BY MOUTH Medical UNDER THE Branch TONGUE ONCE EVERY 5 MINUTES NEEDED FOR CHEST PAIN. NITROGLYCER 2019-09- No [id number] DISSOLVE [facility] IN 0.4 mg 2-15 06-06 ONE (1) ity of sublingual 00:00: 00:00 TABLET(S) [place] tablet 00 :00 BY MOUTH Medical UNDER THE Branch TONGUE ONCE EVERY 5 MINUTES NEEDED FOR CHEST PAIN. losartan-hy 2019-09 Yes [id number] 1{tbl} Take 1 [facility] drochloroth 1-20 tablet by ity of iazide 00:00: mouth [place] 50-12.5 mg 00 daily. Medical per tablet Branch losartan-hy 2019-09 Yes [id number] 1{tbl} Take 1 [facility] drochloroth 1-20 tablet by ity of iazide 00:00: mouth [place] 50-12.5 mg 00 daily. Medical per tablet Branch losartan-hy 2019-09 Yes [id number] 1{tbl} Take 1 [facility] drochloroth 1-20 tablet by ity of iazide 00:00: mouth [place] 50-12.5 mg 00 daily. Medical per tablet Branch losartan-hy 2020- Yes [id number] 1{tbl} Take 1 [facility] drochloroth 1-20 tablet by ity of iazide 00:00: mouth [place] 50-12.5 mg 00 daily. Medical per tablet Branch losartan-hy 2020- Yes [id number] 1{tbl} Take 1 [facility] drochloroth 1-20 tablet by ity of iazide 00:00: mouth [place] 50-12.5 mg 00 daily. Medical per tablet Branch losartan-hy 2020 Yes [id number] 1{tbl} Take 1 [facility] drochloroth 1-20 tablet by ity of iazide 00:00: mouth [place] 50-12.5 mg 00 daily. Medical per tablet Branch losartan-hy 2020 Yes [id number] 1{tbl} Take 1 [facility] drochloroth 1-20 tablet by ity of iazide 00:00: mouth [place] 50-12.5 mg 00 daily. Medical per tablet Branch losartan-hy 2020 Yes [id number] 1{tbl} Take 1 [facility] drochloroth 1-20 tablet by ity of iazide 00:00: mouth [place] 50-12.5 mg 00 daily. Medical per tablet Branch losartan-hy 2020 Yes [id number] 1{tbl} Take 1 [facility] drochloroth 1-20 tablet by ity of iazide 00:00: mouth [place] 50-12.5 mg 00 daily. Medical per tablet Branch losartan-hy 2020- Yes [id number] 1{tbl} Take 1 [facility] drochloroth 1-20 tablet by ity of iazide 00:00: mouth [place] 50-12.5 mg 00 daily. Medical per tablet Branch losartan-hy 2020 Yes [id number] 1{tbl} Take 1 [facility] drochloroth 1-20 tablet by ity of iazide 00:00: mouth [place] 50-12.5 mg 00 daily. Medical per tablet Branch losartan-hy 2020 Yes [id number] 1{tbl} Take 1 [facility] drochloroth 1-20 tablet by ity of iazide 00:00: mouth [place] 50-12.5 mg 00 daily. Medical per tablet Branch losartan-hy 2020 Yes [id number] 1{tbl} Take 1 [facility] drochloroth 1-20 tablet by ity of iazide 00:00: mouth [place] 50-12.5 mg 00 daily. Medical per tablet Branch losartan-hy 2020 Yes [id number] 1{tbl} Take 1 [facility] drochloroth 1-20 tablet by ity of iazide 00:00: mouth [place] 50-12.5 mg 00 daily. Medical per tablet Branch losartan-hy 2020 Yes [id number] 1{tbl} Take 1 [facility] drochloroth 1-20 tablet by ity of iazide 00:00: mouth [place] 50-12.5 mg 00 daily. Medical per tablet Branch losartan-hy 2020 Yes [id number] 1{tbl} Take 1 [facility] drochloroth 1-20 tablet by ity of iazide 00:00: mouth [place] 50-12.5 mg 00 daily. Medical per tablet Branch losartan-hy 2020 Yes [id number] 1{tbl} Take 1 [facility] drochloroth 1-20 tablet by ity of iazide 00:00: mouth [place] 50-12.5 mg 00 daily. Medical per tablet Branch losartan-hy 2020 Yes [id number] 1{tbl} Take 1 [facility] drochloroth 1-20 tablet by ity of iazide 00:00: mouth [place] 50-12.5 mg 00 daily. Medical per tablet Branch losartan-hy 2020 Yes [id number] 1{tbl} Take 1 [facility] drochloroth 1-20 tablet by ity of iazide 00:00: mouth [place] 50-12.5 mg 00 daily. Medical per tablet Branch losartan-hy 2020- Yes [id number] 1{tbl} Take 1 [facility] drochloroth 1-20 tablet by ity of iazide 00:00: mouth [place] 50-12.5 mg 00 daily. Medical per tablet Branch losartan-hy 2020 Yes [id number] 1{tbl} Take 1 [facility] drochloroth 1-20 tablet by ity of iazide 00:00: mouth [place] 50-12.5 mg 00 daily. Medical per tablet Branch losartan-hy 2020 Yes [id number] 1{tbl} Take 1 [facility] drochloroth 1-20 tablet by ity of iazide 00:00: mouth [place] 50-12.5 mg 00 daily. Medical per tablet Branch losartan-hy 2020 Yes [id number] 1{tbl} Take 1 [facility] drochloroth 1-20 tablet by ity of iazide 00:00: mouth [place] 50-12.5 mg 00 daily. Medical per tablet Branch losartan-hy 2019-09 Yes [id number] 1{tbl} Take 1 [facility] drochloroth 1-20 tablet by ity of iazide 00:00: mouth [place] 50-12.5 mg 00 daily. Medical per tablet Branch losartan-hy 2019-09 Yes [id number] 1{tbl} Take 1 [facility] drochloroth 1-20 tablet by ity of iazide 00:00: mouth [place] 50-12.5 mg 00 daily. Medical per tablet Branch losartan-hy 2019-09 Yes [id number] 1{tbl} Take 1 [facility] drochloroth 1-20 tablet by ity of iazide 00:00: mouth [place] 50-12.5 mg 00 daily. Medical per tablet Branch losartan- 2019-09 Yes [id number] 1{tbl} Take 1 [facility] drochloroth 1-20 tablet by ity of iazide 00:00: mouth [place] 50-12.5 mg 00 daily. Medical per tablet Branch losartan-hy 2019-09 Yes [id number] 1{tbl} Take 1 [facility] drochloroth 1-20 tablet by ity of iazide 00:00: mouth [place] 50-12.5 mg 00 daily. Medical per tablet Branch losartan-hy 2019-09 Yes [id number] 1{tbl} Take 1 [facility] drochloroth 1-20 tablet by ity of iazide 00:00: mouth [place] 50-12.5 mg 00 daily. Medical per tablet Branch losartan-hy 2019-09- No [id number] 1{tbl} Take 1 [facility] drochloroth 1-20 06-02 tablet by it y of iazide 00:00: 00:00 mouth [place] 50-12.5 mg 00 :00 daily. Medical per tablet Branch losartan-hy 2019-09- No [id number] 1{tbl} Take 1 [facility] drochloroth 1-20 06-02 tablet by it y of iazide 00:00: 00:00 mouth [place] 50-12.5 mg 00 :00 daily. Medical per tablet Branch isosorbide 2020 Yes [id number] TAKE THREE [facility] mononitrate 1-11 (3) [facility] of 30 mg 24 hr 00:00: TABLET(S) [place] tablet 00 BY MOUTH [facility] ONCE A Branch DAY. isosorbide 2020-1 Yes [id number] TAKE THREE [facility] mononitrate 1-11 (3) [facility] of 30 mg 24 hr 00:00: TABLET(S) [place] tablet 00 BY MOUTH [facility] ONCE A [facility] DAY. isosorbide 2020-1 Yes [id number] TAKE THREE [facility] mononitrate 1-11 (3) [facility] of 30 mg 24 hr 00:00: TABLET(S) [place] tablet 00 BY MOUTH [facility] ONCE A [facility] DAY. isosorbide 2020-1 Yes [id number] TAKE THREE [facility] mononitrate 1-11 (3) [facility] of 30 mg 24 hr 00:00: TABLET(S) [place] tablet 00 BY MOUTH [facility] ONCE A [facility] DAY. isosorbide 2019- 2020- No [id number] TAKE THREE [facility] mononitrate 1-11 12-17 (3) ity of 30 mg 24 hr 00:00: 00:00 TABLET(S) [place] tablet 00 :00 BY MOUTH Medical ONCE A Branch DAY. ISOSORBIDE 2020-1 Yes [id number] TAKE THREE [facility] MONONITRATE 0-09 (3) [facility]y of 30 mg 24 hr 00:00: TABLET(S) [place] tablet 00 BY MOUTH Medical ONCE A [facility] DAY. ISOSORBIDE 2020-1 2020- No [id number] TAKE THREE [facility] MONONITRATE 0-09 11-10 (3) ity of 30 mg 24 hr 00:00: 00:00 TABLET(S) [place] tablet 00 :00 BY MOUTH Medical ONCE A Branch DAY. ISOSORBIDE 2020-0 Yes [id number] TAKE THREE [facility] MONONITRATE 8-06 (3) ity of 30 mg 24 hr 00:00: TABLET(S) [place] tablet 00 BY MOUTH Medical ONCE A Branch DAY. ISOSORBIDE 2020-0 Yes [id number] TAKE THREE [facility] MONONITRATE 8-06 (3) ity of 30 mg 24 hr 00:00: TABLET(S) [place] tablet 00 BY MOUTH Medical ONCE A Branch DAY. ISOSORBIDE 2020-0 Yes [id number] TAKE THREE [facility] MONONITRATE 8-06 (3) ity of 30 mg 24 hr 00:00: TABLET(S) [place] tablet 00 BY MOUTH Medical ONCE A Branch DAY. ISOSORBIDE 2020-0 2020- No [id number] TAKE THREE [facility] MONONITRATE 8-06 10-09 (3) ity of 30 mg 24 hr 00:00: 00:00 TABLET(S) [place] tablet 00 :00 BY MOUTH Medical ONCE A Branch DAY. ISOSORBIDE 2020-0 Yes [id number] TAKE THREE [facility] MONONITRATE 5-22 (3) ity of 30 mg 24 hr 00:00: TABLET(S) [place] tablet 00 BY MOUTH Medical ONCE A Branch DAY. ISOSORBIDE 2020-0 2020- No [id number] TAKE THREE [facility] MONONITRATE 5-22 08-06 (3) ity of 30 mg 24 hr 00:00: 00:00 TABLET(S) [place] tablet 00 :00 BY MOUTH Medical ONCE A Branch DAY. NIFEdipine 2018-09 Yes [id number] 60mg Take 1 U nivers XL 60 mg 24 2-13 tablet by ity of hr tablet 00:00: mouth [place] 00 daily. Medical Branch NIFEdipine 2018-09 Yes [id number] 60mg Take 1 U nivers XL 60 mg 24 2-13 tablet by ity of hr tablet 00:00: mouth [place] 00 daily. Medical Branch NIFEdipine 2018-09 Yes [id number] 60mg Take 1 U nivers XL 60 mg 24 2-13 tablet by ity of hr tablet 00:00: mouth [place] 00 daily. Medical Branch NIFEdipine 2018-09 Yes [id number] 60mg Take 1 U nivers XL 60 mg 24 2-13 tablet by ity of hr tablet 00:00: mouth [place] 00 daily. Medical Branch NIFEdipine 2018-09 Yes [id number] 60mg Take 1 U nivers XL 60 mg 24 2-13 tablet by ity of hr tablet 00:00: mouth [place] 00 daily. [facility] Branch NIFEdipine 2018-09 Yes [id number] 60mg Take 1 U nivers XL 60 mg 24 2-13 tablet by ity of hr tablet 00:00: mouth [place] 00 daily. [facility] Branch NIFEdipine 2018-09 Yes [id number] 60mg Take 1 U nivers XL 60 mg 24 2-13 tablet by ity of hr tablet 00:00: mouth [place] 00 daily. [facility] Branch NIFEdipine 2018-09 Yes [id number] 60mg Take 1 U nivers XL 60 mg 24 2-13 tablet by ity of hr tablet 00:00: mouth [place] 00 daily. [facility] Branch NIFEdipine 2018-09 Yes [id number] 60mg Take 1 U nivers XL 60 mg 24 2-13 tablet by ity of hr tablet 00:00: mouth [place] 00 daily. Medical Branch NIFEdipine 2018-09 Yes [id number] 60mg Take 1 U nivers XL 60 mg 24 2-13 tablet by ity of hr tablet 00:00: mouth [place] 00 daily. Medical Branch NIFEdipine 2018-09 2020- No [id number] 60mg Take 1 [facility] XL 60 mg 24 2-13 12-17 tablet by it y of hr tablet 00:00: 00:00 mouth [place] 00 :00 daily. Medical Branch aspirin 81 2018-09 Yes [id number] 81mg Take 1 U nivers mg chewable 1-27 tablet by ity of tablet 00:00: mouth [place] 00 daily. [facility] Branch [facility] 2018-09 Yes [id number] I10 - U nivers [facility] 10-26 Dispense ity o f Supply Kit 00:00: blood [place] 00 pressure Medical cuff (any Branch brand), take BP at home BID aspirin 81 2018-09 Yes [id number] 81mg Take 1 U nivers mg chewable 1-27 tablet by ity of tablet 00:00: mouth [place] 00 daily. Medical Branch [facility] [place] 2018-09 Yes [id number] I10 - U nivers [facility] 10-26 Dispense ity o f Supply Kit 00:00: blood [place] 00 pressure Medical cuff (any Branch brand), take BP at home BID aspirin 81 2018-09 Yes [id number] 81mg Take 1 U nivers mg chewable 1-27 tablet by ity of tablet 00:00: mouth [place] 00 daily. Medical Branch [facility] [place] 2018-09 Yes [id number] I10 - U nivers [facility] 10-26 Dispense ity o f Supply Kit 00:00: blood [place] 00 pressure Medical cuff (any Branch brand), take BP at home BID aspirin 81 2018-09 Yes [id number] 81mg Take 1 U nivers mg chewable 1-27 tablet by ity of tablet 00:00: mouth [place] 00 daily. [facility] [id number] I10 - U nivers [facility] 10-26 Dispense ity o f Supply Kit 00:00: blood [place] 00 pressure Medical cuff (any Branch brand), take BP at home BID aspirin 81 2018-09 Yes [id number] 81mg Take 1 U nivers mg chewable 1-27 tablet by ity of tablet 00:00: mouth [place] 00 daily. [facility] [place]09 Yes [id number] I10 - U nivers [facility] 10-26 Dispense ity o f Supply Kit 00:00: blood [place] 00 pressure Medical cuff (any Branch brand), take BP at home BID aspirin 81 2018-09 Yes [id number] 81mg Take 1 U nivers mg chewable 1-27 tablet by ity of tablet 00:00: mouth [place] 00 daily. Medical [facility] [place]-09 Yes [id number] I10 - U nivers [facility] 10-26 Dispense ity o f Supply Kit 00:00: blood [place] 00 pressure Medical cuff (any Branch brand), take BP at home BID aspirin 81 2018-09 Yes [id number] 81mg Take 1 U nivers mg chewable 1-27 tablet by ity of tablet 00:00: mouth [place] 00 daily. Medical Branch [facility] [place] 2018-09 Yes [id number] I10 - U nivers [facility] 10-26 Dispense ity o f Supply Kit 00:00: blood [place] 00 pressure Medical cuff (any Branch brand), take BP at home BID carvedilol 2018-09 Yes [id number] 25mg Take 1 U nivers 25 mg 1-27 tablet by ity of tablet 00:00: mouth 2 (two) Medical times Branch daily with meals. aspirin 81 2018-09 Yes [id number] 81mg Take 1 U nivers mg chewable 1-27 tablet by ity of tablet 00:00: mouth [place] 00 daily. Medical Branch [facility] [place] 2018-09 Yes [id number] I10 - U nivers [facility] 10-26 Dispense ity o f Supply Kit 00:00: blood [place] 00 pressure Medical cuff (any Branch brand), take BP at home BID nitroglycer 2018-[id number] 1 [facility] in 0.4 mg 1-27 tablet ity of sublingual 00:00: under the [place] tablet 00 tongue Medical every 5 Branch (five) minutes as needed for Chest pain. atorvastati 2018-09 Yes [id number] 40mg Take 1 [facility] n 40 mg 1-27 tablet by ity of tablet 00:00: mouth at [place] 00 bedtime. Medical Branch aspirin 81 2018-09 Yes [id number] 81mg Take 1 U nivers mg chewable 1-27 tablet by ity of tablet 00:00: mouth [place] 00 daily. Medical Branch Miscellaneo 2018-09 Yes [id number] I10 - U nivers [facility] 10-26 Dispense ity o f Supply Kit 00:00: blood [place] 00 pressure Medical cuff (any Branch brand), take BP at home BID aspirin 81 2018-09 Yes [id number] 81mg Take 1 U nivers mg chewable 1-27 tablet by ity of tablet 00:00: mouth [place] 00 daily. Medical Branch FLUoxetine 2018-09 Yes [id number] 20mg Take 1 [facility] 20 mg 1-27 capsule by ity of capsule 00:00: mouth [place] 00 daily. Medical Branch aspirin 81 2018-09 Yes [id number] 81mg Take 1 U nivers mg chewable 1-27 tablet by ity of tablet 00:00: mouth [place] 00 daily. [facility] [id number] I10 - U nivers [facility] 10-26 Dispense ity o f Supply Kit 00:00: blood [place] 00 pressure Medical cuff (any Branch brand), take BP at home BID losartan-hy 2018-09 Yes [id number] 1{tbl} Take 1 [facility] drochloroth 1-27 tablet by ity of iazide 00:00: mouth [place] 50-12.5 mg 00 daily. Medical per tablet Branch [facility] [place]09 Yes [id number] I10 - U nivers [facility] 10-26 Dispense ity o f Supply Kit 00:00: blood [place] 00 pressure Medical cuff (any Branch brand), take BP at home BID aspirin 81 2018-09 Yes [id number] 81mg Take 1 U nivers mg chewable 1-27 tablet by ity of tablet 00:00: mouth [place] 00 daily. [facility] [id number] I10 - U nivers [facility] 10-26 Dispense ity o f Supply Kit 00:00: blood [place] 00 pressure Medical cuff (any Branch brand), take BP at home BID aspirin 81 2018-09 Yes [id number] 81mg Take 1 U nivers mg chewable 1-27 tablet by ity of tablet 00:00: mouth [place] 00 daily. [facility] Yes [id number] I10 - U nivers [facility] 10-26 Dispense ity o f Supply Kit 00:00: blood [place] 00 pressure Medical cuff (any Branch brand), take BP at home BID aspirin 81 2018-09 Yes [id number] 81mg Take 1 U nivers mg chewable 1-27 tablet by ity of tablet 00:00: mouth [place] 00 daily. Medical Branch Miscellaneo 2018-09 Yes [id number] I10 - U nivers [facility] 10-26 Dispense ity o f Supply Kit 00:00: blood [place] 00 pressure Medical cuff (any Branch brand), take BP at home BID aspirin 81 2018-09 Yes [id number] 81mg Take 1 U nivers mg chewable 1-27 tablet by ity of tablet 00:00: mouth [place] 00 daily. [facility] [id number] I10 - U nivers [facility] 10-26 Dispense ity o f Supply Kit 00:00: blood [place] 00 pressure Medical cuff (any Branch brand), take BP at home BID carvedilol 2018-09 Yes [id number] 25mg Take 1 U nivers 25 mg 1-27 tablet by ity of tablet 00:00: mouth 2 00 (two) Medical times Branch daily with meals. aspirin 81 2018-09 Yes [id number] 81mg Take 1 U nivers mg chewable 1-27 tablet by ity of tablet 00:00: mouth [place] 00 daily. Medical Branch nitroglycer 2018-[id number] 1 [facility] in 0.4 mg 1-27 tablet ity of sublingual 00:00: under the [place] tablet 00 tongue Medical every 5 Branch (five) minutes as needed for Chest pain. [facility] [id number] I10 - U nivers [facility] 10-26 Dispense ity o f Supply Kit 00:00: blood [place] 00 pressure Medical cuff (any Branch brand), take BP at home BID atorvastati 2018-09 Yes [id number] 40mg Take 1 [facility] n 40 mg 1-27 tablet by ity of tablet 00:00: mouth at [place] 00 bedtime. Medical Branch aspirin 81 2018-09 Yes [id number] 81mg Take 1 U nivers mg chewable 1-27 tablet by ity of tablet 00:00: mouth [place] 00 daily. Medical Branch Miscellaneo 2018-09 Yes [id number] I10 - U nivers [facility] 10-26 Dispense ity o f Supply Kit 00:00: blood [place] 00 pressure Medical cuff (any Branch brand), take BP at home BID aspirin 81 2018-09 Yes [id number] 81mg Take 1 U nivers mg chewable 1-27 tablet by ity of tablet 00:00: mouth [place] 00 daily. Medical Branch FLUoxetine 2018-09 Yes [id number] 20mg Take 1 [facility] 20 mg 1-27 capsule by ity of capsule 00:00: mouth [place] 00 daily. Medical Branch losartan-hy 2018-09 Yes [id number] 1{tbl} Take 1 [facility] drochloroth 1-27 tablet by ity of iazide 00:00: mouth [place] 50-12.5 mg 00 daily. Medical per tablet Branch aspirin 81 2018-09 Yes [id number] 81mg Take 1 U nivers mg chewable 1-27 tablet by ity of tablet 00:00: mouth [place] 00 daily. Medical Branch Miscellaneo 2018-09 Yes [id number] I10 - U nivers [facility] 10-26 Dispense ity o f Supply Kit 00:00: blood [place] 00 pressure Medical cuff (any Branch brand), take BP at home BID Miscellaneo 2018-09 Yes [id number] I10 - U nivers [facility] 10-26 Dispense ity o f Supply Kit 00:00: blood [place] 00 pressure Medical cuff (any Branch brand), take BP at home BID aspirin 81 2018-09 Yes [id number] 81mg Take 1 U nivers mg chewable 1-27 tablet by ity of tablet 00:00: mouth [place] 00 daily. Medical Branch Miscellaneo 2018-09 Yes [id number] I10 - U nivers [facility] 10-26 Dispense ity o f Supply Kit 00:00: blood [place] 00 pressure Medical cuff (any Branch brand), take BP at home BID aspirin 81 2018-09 Yes [id number] 81mg Take 1 U nivers mg chewable 1-27 tablet by ity of tablet 00:00: mouth [place] 00 daily. Medical Branch Miscellaneo 2018-09 Yes [id number] I10 - U nivers [facility] 10-26 Dispense ity o f Supply Kit 00:00: blood [place] 00 pressure Medical cuff (any Branch brand), take BP at home BID aspirin 81 2018-09 Yes [id number] 81mg Take 1 U nivers mg chewable 1-27 tablet by ity of tablet 00:00: mouth [place] 00 daily. [facility] [id number] I10 - U nivers Medical 10-26 Dispense ity o f Supply Kit 00:00: blood [place] 00 pressure Medical cuff (any Branch brand), take BP at home BID aspirin 81 2018-09 Yes [id number] 81mg Take 1 U nivers mg chewable 1-27 tablet by ity of tablet 00:00: mouth [place] 00 daily. Medical Branch [facility] [place] 2018-09 Yes [id number] I10 - U nivers [facility] 10-26 Dispense ity o f Supply Kit 00:00: blood [place] 00 pressure Medical cuff (any Branch brand), take BP at home BID carvedilol 2018-09 Yes [id number] 25mg Take 1 U nivers 25 mg 1-27 tablet by ity of tablet 00:00: mouth 2 [place] 00 (two) Medical times Branch daily with meals. aspirin 81 2018-09 Yes [id number] 81mg Take 1 U nivers mg chewable 1-27 tablet by ity of tablet 00:00: mouth [place] 00 daily. [facility] [place]09 Yes [id number] I10 - U nivers [facility] 10-26 Dispense ity o f Supply Kit 00:00: blood [place] 00 pressure Medical cuff (any Branch brand), take BP at home BID nitroglycer 2018-[id number] 1 [facility] in 0.4 mg 1-27 tablet ity of sublingual 00:00: under the [place] tablet 00 tongue Medical every 5 Branch (five) minutes as needed for Chest pain. atorvastati 2018-09 Yes [id number] 40mg Take 1 [facility] n 40 mg 1-27 tablet by ity of tablet 00:00: mouth at [place] 00 bedtime. Medical Branch aspirin 81 2018-09 Yes [id number] 81mg Take 1 U nivers mg chewable 1-27 tablet by ity of tablet 00:00: mouth [place] 00 daily. [facility] Yes [id number] I10 - U nivers [facility] 10-26 Dispense ity o f Supply Kit 00:00: blood [place] 00 pressure Medical cuff (any Branch brand), take BP at home BID aspirin 81 2018-09 Yes [id number] 81mg Take 1 U nivers mg chewable 1-27 tablet by ity of tablet 00:00: mouth [place] 00 daily. Medical Branch FLUoxetine 2018-09 Yes [id number] 20mg Take 1 [facility] 20 mg 1-27 capsule by ity of capsule 00:00: mouth [place] 00 daily. Medical Branch aspirin 81 2018-09 Yes [id number] 81mg Take 1 U nivers mg chewable 1-27 tablet by ity of tablet 00:00: mouth [place] 00 daily. Medical [facility] 2018-09 Yes [id number] I10 - U nivers [facility] 10-26 Dispense ity o f Supply Kit 00:00: blood [place] 00 pressure Medical cuff (any Branch brand), take BP at home BID losartan-hy 2018-09 Yes [id number] 1{tbl} Take 1 [facility] drochloroth 1-27 tablet by ity of iazide 00:00: mouth [place] 50-12.5 mg 00 daily. Medical per tablet Branch [facility] [place]09 Yes [id number] I10 - U nivers [facility] 10-26 Dispense ity o f Supply Kit 00:00: blood [place] 00 pressure Medical cuff (any Branch brand), take BP at home BID aspirin 81 2018-09 Yes [id number] 81mg Take 1 U nivers mg chewable 1-27 tablet by ity of tablet 00:00: mouth [place] 00 daily. Medical [facility] 2018-09 Yes [id number] I10 - U nivers [facility] 10-26 Dispense ity o f Supply Kit 00:00: blood [place] 00 pressure Medical cuff (any Branch brand), take BP at home BID aspirin 81 2018-09 Yes [id number] 81mg Take 1 U nivers mg chewable 1-27 tablet by ity of tablet 00:00: mouth [place] 00 daily. Medical [facility] 2018-09 Yes [id number] I10 - U nivers [facility] 10-26 Dispense ity o f Supply Kit 00:00: blood [place] 00 pressure Medical cuff (any Branch brand), take BP at home BID aspirin 81 2018-09 Yes [id number] 81mg Take 1 U nivers mg chewable 1-27 tablet by ity of tablet 00:00: mouth [place] 00 daily. [facility] 2018-09 Yes [id number] I10 - U nivers [facility] 10-26 Dispense ity o f Supply Kit 00:00: blood [place] 00 pressure Medical cuff (any Branch brand), take BP at home BID carvedilol 2018-09 Yes [id number] 25mg Take 1 U nivers 25 mg 1-27 tablet by ity of tablet 00:00: mouth 2 [place] 00 (two) Medical times Branch daily with meals. aspirin 81 2018-09 Yes [id number] 81mg Take 1 U nivers mg chewable 1-27 tablet by ity of tablet 00:00: mouth [place] 00 daily. Medical Branch nitroglycer 2018-[id number] 1 [facility] in 0.4 mg 1-27 tablet ity of sublingual 00:00: under the [place] tablet 00 tongue Medical every 5 Branch (five) minutes as needed for Chest pain. M[facility] 2018-09 Yes [id number] I10 - U nivers Medical 10-26 Dispense ity o f Supply Kit 00:00: blood [place] 00 pressure Medical cuff (any Branch brand), take BP at home BID atorvastati 2018-09 Yes [id number] 40mg Take 1 [facility] n 40 mg 1-27 tablet by ity of tablet 00:00: mouth at [place] 00 bedtime. Medical Branch aspirin 81 2018-09 Yes [id number] 81mg Take 1 U nivers mg chewable 1-27 tablet by ity of tablet 00:00: mouth [place] 00 daily. Medical Branch aspirin 81 2018-09 Yes [id number] 81mg Take 1 U nivers mg chewable 1-27 tablet by ity of tablet 00:00: mouth [place] 00 daily. Medical Branch Miscellaneo 2018-09 Yes [id number] I10 - U nivers Medical 10-26 Dispense ity o f Supply Kit 00:00: blood [place] 00 pressure Medical cuff (any Branch brand), take BP at home BID FLUoxetine 2018-09 Yes [id number] 20mg Take 1 [facility] 20 mg 1-27 capsule by ity of capsule 00:00: mouth [place] 00 daily. Medical Branch losartan-hy 2018-09 Yes [id number] 1{tbl} Take 1 [facility] drochloroth 1-27 tablet by ity of iazide 00:00: mouth [place] 50-12.5 mg 00 daily. Medical per tablet Branch aspirin 81 2018-09 Yes [id number] 81mg Take 1 U nivers mg chewable 1-27 tablet by ity of tablet 00:00: mouth [place] 00 daily. Medical Branch [facility] [place]-09 Yes [id number] I10 - U nivers [facility] 10-26 Dispense ity o f Supply Kit 00:00: blood [place] 00 pressure Medical cuff (any Branch brand), take BP at home BID Miscellaneo 2018-09 Yes [id number] I10 - U nivers [facility] 10-26 Dispense ity o f Supply Kit 00:00: blood [place] 00 pressure Medical cuff (any Branch brand), take BP at home BID aspirin 81 2018-09 Yes [id number] 81mg Take 1 U nivers mg chewable 1-27 tablet by ity of tablet 00:00: mouth [place] 00 daily. Medical Branch [facility] [place]-09 Yes [id number] I10 - U nivers [facility] 10-26 Dispense ity o f Supply Kit 00:00: blood [place] 00 pressure Medical cuff (any Branch brand), take BP at home BID aspirin 81 2018-09 Yes [id number] 81mg Take 1 U nivers mg chewable 1-27 tablet by ity of tablet 00:00: mouth [place] 00 daily. Medical Branch [facility] [place] 2018-09 Yes [id number] I10 - U nivers [facility] 10-26 Dispense ity o f Supply Kit 00:00: blood [place] 00 pressure Medical cuff (any Branch brand), take BP at home BID aspirin 81 2018-09 Yes [id number] 81mg Take 1 U nivers mg chewable 1-27 tablet by ity of tablet 00:00: mouth [place] 00 daily. Medical [facility] 2018-09 Yes [id number] I10 - U nivers [facility] 10-26 Dispense ity o f Supply Kit 00:00: blood [place] 00 pressure Medical cuff (any Branch brand), take BP at home BID carvedilol 2018-09 Yes [id number] 25mg Take 1 U nivers 25 mg 1-27 tablet by ity of tablet 00:00: mouth 2 [place] 00 (two) Medical times Branch daily with meals. nitroglycer 2018-[id number] 1 [facility] in 0.4 mg 1-27 tablet ity of sublingual 00:00: under the [place] tablet 00 tongue Medical every 5 Branch (five) minutes as needed for Chest pain. aspirin 81 2018-09 Yes [id number] 81mg Take 1 U nivers mg chewable 1-27 tablet by ity of tablet 00:00: mouth [place] 00 daily. Medical Branch atorvastati 2018-09 Yes [id number] 40mg Take 1 [facility] n 40 mg 1-27 tablet by ity of tablet 00:00: mouth at [place] 00 bedtime. Medical Branch Miscellaneo 2018-09 Yes [id number] I10 - U nivers [facility] Medical 10-26 Dispense ity o f Supply Kit 00:00: blood [place] 00 pressure Medical cuff (any Branch brand), take BP at home BID aspirin 81 2018-09 Yes [id number] 81mg Take 1 U nivers mg chewable 1-27 tablet by ity of tablet 00:00: mouth [place] 00 daily. Medical Branch FLUoxetine 2018-09 Yes [id number] 20mg Take 1 [facility] 20 mg 1-27 capsule by ity of capsule 00:00: mouth [place] 00 daily. Medical Branch aspirin 81 2018-09 Yes [id number] 81mg Take 1 U nivers mg chewable 1-27 tablet by ity of tablet 00:00: mouth [place] 00 daily. [facility] [id number] I10 - U nivers Medical 10-26 Dispense ity o f Supply Kit 00:00: blood [place] 00 pressure Medical cuff (any Branch brand), take BP at home BID losartan-hy 2018-09 Yes [id number] 1{tbl} Take 1 [facility] drochloroth 1-27 tablet by ity of iazide 00:00: mouth [place] 50-12.5 mg 00 daily. Medical per tablet Branch aspirin 81 2018-09 Yes [id number] 81mg Take 1 U nivers mg chewable 1-27 tablet by ity of tablet 00:00: mouth [place] 00 daily. [facility] [id number] I10 - U nivers Medical 10-26 Dispense ity o f Supply Kit 00:00: blood [place] 00 pressure Medical cuff (any Branch brand), take BP at home BID Miscellaneo 2018-09 Yes [id number] I10 - U nivers Medical 10-26 Dispense ity o f Supply Kit 00:00: blood [place] 00 pressure Medical cuff (any Branch brand), take BP at home BID aspirin 81 2018-09 Yes [id number] 81mg Take 1 U nivers mg chewable 1-27 tablet by ity of tablet 00:00: mouth [place] 00 daily. [facility] [id number] I10 - U nivers [facility] 10-26 Dispense ity o f Supply Kit 00:00: blood [place] 00 pressure Medical cuff (any Branch brand), take BP at home BID aspirin 81 2018-09 Yes [id number] 81mg Take 1 U nivers mg chewable 1-27 tablet by ity of tablet 00:00: mouth [place] 00 daily. Medical Branch [facility] [place] 2018-09 Yes [id number] I10 - U nivers [facility] 10-26 Dispense ity o f Supply Kit 00:00: blood [place] 00 pressure Medical cuff (any Branch brand), take BP at home BID aspirin 81 2018-09 Yes [id number] 81mg Take 1 U nivers mg chewable 1-27 tablet by ity of tablet 00:00: mouth [place] 00 daily. Medical Branch [facility] [place] 2018-09 Yes [id number] I10 - U nivers [facility] 10-26 Dispense ity o f Supply Kit 00:00: blood [place] 00 pressure Medical cuff (any Branch brand), take BP at home BID carvedilol 2018-09 Yes [id number] 25mg Take 1 U nivers 25 mg 1-27 tablet by ity of tablet 00:00: mouth 2 00 (two) Medical times Branch daily with meals. aspirin 81 2018-09 Yes [id number] 81mg Take 1 U nivers mg chewable 1-27 tablet by ity of tablet 00:00: mouth [place] 00 daily. Medical Branch [facility] [place] 2018-09 Yes [id number] I10 - U nivers [facility] 10-26 Dispense ity o f Supply Kit 00:00: blood [place] 00 pressure Medical cuff (any Branch brand), take BP at home BID nitroglycer 2018-[id number] 1 [facility] in 0.4 mg 1-27 tablet ity of sublingual 00:00: under the [place] tablet 00 tongue Medical every 5 Branch (five) minutes as needed for Chest pain. atorvastati 2018-09 Yes [id number] 40mg Take 1 [facility] n 40 mg 1-27 tablet by ity of tablet 00:00: mouth at [place] 00 bedtime. Medical Branch aspirin 81 2018-09 Yes [id number] 81mg Take 1 U nivers mg chewable 1-27 tablet by ity of tablet 00:00: mouth [place] 00 daily. Medical Branch aspirin 81 2018-09 Yes [id number] 81mg Take 1 U nivers mg chewable 1-27 tablet by ity of tablet 00:00: mouth [place] 00 daily. Medical Branch Miscellaneo 2018-09 Yes [id number] I10 - U nivers [facility] 10-26 Dispense ity o f Supply Kit 00:00: blood [place] 00 pressure Medical cuff (any Branch brand), take BP at home BID FLUoxetine 2018-09 Yes [id number] 20mg Take 1 [facility] 20 mg 1-27 capsule by ity of capsule 00:00: mouth [place] 00 daily. Medical Branch aspirin 81 2018-09 Yes [id number] 81mg Take 1 [facility] nivers mg chewable 1-27 tablet by ity of tablet 00:00: mouth [place] 00 daily. Medical Branch losartan-hy 2018-09 Yes [id number] 1{tbl} Take 1 [facility] drochloroth 1-27 tablet by ity of iazide 00:00: mouth [place] 50-12.5 mg 00 daily. Medical per tablet Branch [facility] 2018-09 Yes [id number] I10 - U nivers [facility] 10-26 Dispense ity o f Supply Kit 00:00: blood [place] 00 pressure Medical cuff (any Branch brand), take BP at home BID Miscellaneo 2018-09 Yes [id number] I10 - U nivers [facility] 10-26 Dispense ity o f Supply Kit 00:00: blood [place] 00 pressure Medical cuff (any Branch brand), take BP at home BID aspirin 81 2018-09 Yes [id number] 81mg Take 1 [facility] mg chewable 1-27 tablet by ity of tablet 00:00: mouth [place] [facility]. [facility] [id number] I[facility] - U nivers [facility] 10-26 Dispense ity o f Supply Kit 00:00: blood [place] 00 pressure Medical cuff (any Branch brand), take BP at home BID aspirin 81 2018-09 Yes [id number] 81mg Take 1 [facility] mg chewable 1-27 tablet by ity of tablet 00:00: mouth [place] 00 daily. [facility] [id number] I10 - U nivers [facility] 10-26 Dispense ity o f Supply Kit 00:00: blood [place] 00 pressure Medical cuff (any Branch brand), take BP at home BID aspirin 81 2018-09 Yes [id number] 81mg Take 1 [facility]ivers mg chewable 1-27 tablet by ity of tablet 00:00: mouth [place] 00 daily. [facility] Yes [id number] I10 - [facility] Medical 10-26 Dispense ity o f Supply Kit 00:00: blood [place] 00 pressure Medical cuff (any Branch brand), take BP at home BID aspirin 81 2018-09 Yes [id number] 81mg Take 1 [facility] mg chewable 1-27 tablet by ity of tablet 00:00: mouth [place] 00 daily. [facility] Yes [id number] I10 - U nivers [facility] 10-26 Dispense ity o f Supply Kit 00:00: blood [place] 00 pressure Medical cuff (any Branch brand), take BP at home BID carvedilol 2018-09 Yes [id number] 25mg Take 1 [facility] nivers 25 mg 1-27 tablet by ity of tablet 00:00: mouth 2 00 (two) Medical times Branch daily with meals. nitroglycer 2018-[id number] 1 [facility] in 0.4 mg 1-27 tablet ity of sublingual 00:00: under the [place] tablet 00 tongue Medical every 5 Branch (five) minutes as needed for Chest pain. aspirin 81 2018-09 Yes [id number] 81mg Take 1 [facility] mg chewable 1-27 tablet by ity of tablet 00:00: mouth [place] 00 daily. [facility] [place] Yes [id number] I10 - U nivers [facility] 10-26 Dispense ity o f Supply Kit 00:00: blood [place] 00 pressure Medical cuff (any Branch brand), take BP at home BID atorvastati 2018-09 Yes [id number] 40mg Take 1 [facility] n 40 mg 1-27 tablet by ity of tablet 00:00: mouth at [place] 00 bedtime. Medical Branch aspirin 81 2018-09 Yes [id number] 81mg Take 1 [facility] mg chewable 1-27 tablet by ity of tablet 00:00: mouth [place] 00 daily. Medical Branch aspirin 81 2018-09 Yes [id number] 81mg Take 1 [facility] mg chewable 1-27 tablet by ity of tablet 00:00: mouth [place] 00 daily. [facility] [place]-09 Yes [id number] I10 - U nivers [facility] 10-26 Dispense ity o f Supply Kit 00:00: blood [place] 00 pressure Medical cuff (any Branch brand), take BP at home BID FLUoxetine 2018-09 Yes [id number] 20mg Take 1 [facility] 20 mg 1-27 capsule by ity of capsule 00:00: mouth [place] 00 daily. Medical Branch Miscellaneo 2018-09 Yes [id number] I10 - U nivers [facility] 10-26 Dispense ity o f Supply Kit 00:00: blood [place] 00 pressure Medical cuff (any Branch brand), take BP at home BID aspirin 81 2018-09 Yes [id number] 81mg Take 1 [facility] mg chewable 1-27 tablet by ity of tablet 00:00: mouth [place] 00 daily. Medical Branch Miscellaneo 2018-09 Yes [id number] I10 - U nivers [facility] 10-26 Dispense ity o f Supply Kit 00:00: blood [place] 00 pressure Medical cuff (any Branch brand), take BP at home BID Miscellaneo 2018-09 Yes [id number] I10 - U nivers [facility] 10-26 Dispense ity o f Supply Kit 00:00: blood [place] 00 pressure Medical cuff (any Branch brand), take BP at home BID carvedilol 2018-09 Yes [id number] 25mg Take 1 [facility] 25 mg 1-27 tablet by ity of tablet 00:00: mouth 2 (two) Medical times Branch daily with meals. atorvastati 2018-09 Yes [id number] 40mg Take 1 [facility] n 40 mg 1-27 tablet by ity of tablet 00:00: mouth at [place] 00 bedtime. Medical Branch aspirin 81 2018-09 Yes [id number] 81mg Take 1 [facility]ivers mg chewable 1-27 tablet by ity of tablet 00:00: mouth [place] 00 daily. Medical Branch FLUoxetine 2018-09 Yes [id number] 20mg Take 1 [facility] 20 mg 1-27 capsule by ity of capsule 00:00: mouth [place] 00 daily. Medical Branch Miscellaneo 2018-09 Yes [id number] I10 - U nivers [facility] 10-26 Dispense ity o f Supply Kit 00:00: blood [place] 00 pressure Medical cuff (any Branch brand), take BP at home BID Miscellaneo 2018-09 Yes [id number] I10 - U nivers [facility] 10-26 Dispense ity o f Supply Kit 00:00: blood [place] 00 pressure Medical cuff (any Branch brand), take BP at home BID Miscellaneo 2018-09 Yes [id number] I10 - U nivers [facility] 10-26 Dispense ity o f Supply Kit 00:00: blood [place] pressure Medical cuff (any Branch brand), take BP at home BID carvedilol 2018-09 Yes [id number] 25mg Take 1 [facility]ivers 25 mg 1-27 tablet by ity of tablet 00:00: mouth 2 (two) Medical times Branch daily with meals. atorvastati 2018-09 Yes [id number] 40mg Take 1 [facility] n 40 mg 1-27 tablet by ity of tablet 00:00: mouth at [place] 00 bedtime. Medical Branch Miscellaneo 2018-09 Yes [id number] I10 - U nivers [facility] 10-26 Dispense ity o f Supply Kit 00:00: blood 00 pressure Medical cuff (any Branch brand), take BP at home BID aspirin 81 2018-09 Yes [id number] 81mg Take 1 [facility]ivers mg chewable 1-27 tablet by ity of tablet 00:00: mouth [place] 00 daily. Medical Branch FLUoxetine 2018-09 Yes [id number] 20mg Take 1 [facility] 20 mg 1-27 capsule by ity of capsule 00:00: mouth [place] 00 daily. Medical Branch Miscellaneo 2018-09 Yes [id number] I10 - U nivers [facility] 10-26 Dispense ity o f Supply Kit 00:00: blood 00 pressure Medical cuff (any Branch brand), take BP at home BID Miscellaneo 2018-09 Yes [id number] I10 - U nivers [facility] 10-26 Dispense ity o f Supply Kit 00:00: blood 00 pressure Medical cuff (any Branch brand), take BP at home BID Miscellaneo 2018-09 Yes [id number] I10 - U nivers [facility] 10-26 Dispense ity o f Supply Kit 00:00: blood [place] 00 pressure Medical cuff (any Branch brand), take BP at home BID Miscellaneo 2018-09 Yes [id number] I10 - U nivers [facility] 10-26 Dispense ity o f Supply Kit 00:00: blood [place] 00 pressure Medical cuff (any Branch brand), take BP at home BID Miscellaneo 2018-09 Yes [id number] I10 - U nivers [facility] 10-26 Dispense ity o f Supply Kit 00:00: blood [place] 00 pressure Medical cuff (any Branch brand), take BP at home BID Miscellaneo 2018-09 Yes [id number] I10 - U nivers [facility] 10-26 Dispense ity o f Supply Kit 00:00: blood [place] 00 pressure Medical cuff (any Branch brand), take BP at home BID Miscellaneo 2018-09 Yes [id number] I10 - U nivers [facility] 10-26 Dispense ity o f Supply Kit 00:00: blood [place] pressure Medical cuff (any Branch brand), take BP at home BID aspirin 81 2018-09 Yes [id number] 81mg Take 1 U nivers mg chewable 10-26 tablet by ity of tablet 00:00: mouth [place] 00 daily. Medical Branch Miscellaneo 2018-09 Yes [id number] I10 - U nivers [facility] 10-26 Dispense ity o f Supply Kit 00:00: blood [place] 00 pressure Medical cuff (any Branch brand), take BP at home BID Miscellaneo 2018-09 Yes [id number] I10 - U nivers [facility] 10-26 Dispense ity o f Supply Kit 00:00: blood [place] pressure Medical cuff (any Branch brand), take BP at home BID Miscellaneo 2018-09 Yes [id number] I10 - U nivers [facility] 10-26 Dispense ity o f Supply Kit 00:00: blood [place] 00 pressure Medical cuff (any Branch brand), take BP at home BID Miscellaneo 2018-09 Yes [id number] I10 - U nivers [facility] 10-26 Dispense ity o f Supply Kit 00:00: blood [place] 00 pressure Medical cuff (any Branch brand), take BP at home BID Miscellaneo 2018-09 Yes [id number] I10 - U nivers [facility] 10-26 Dispense ity o f Supply Kit 00:00: blood [place] 00 pressure Medical cuff (any Branch brand), take BP at home BID Miscellaneo 2018-09 Yes [id number] I10 - U nivers [facility] 10-26 Dispense ity o f Supply Kit 00:00: blood [place] 00 pressure Medical cuff (any Branch brand), take BP at home BID Miscellaneo 2018-09 Yes [id number] I10 - U nivers [facility] 10-26 Dispense ity o f Supply Kit 00:00: blood [place] pressure Medical cuff (any Branch brand), take BP at home BID Miscellaneo 2018-09 Yes [id number] I10 - U nivers [facility] 10-26 Dispense ity o f Supply Kit 00:00: blood [place] pressure Medical cuff (any Branch brand), take BP at home BID Miscellaneo 2018-09 Yes [id number] I10 - U nivers [facility] 10-26 Dispense ity o f Supply Kit 00:00: blood [place] pressure Medical cuff (any Branch brand), take BP at home BID Miscellaneo 2018-09 Yes [id number] I10 - U nivers [facility] 10-26 Dispense ity o f Supply Kit 00:00: blood [place] pressure Medical cuff (any Branch brand), take BP at home BID aspirin 81 2018-09 Yes [id number] 81mg Take 1 U nivers mg chewable 10-26 tablet by ity of tablet 00:00: mouth 00 daily. Medical Branch Miscellaneo 2018-09 Yes [id number] I10 - U nivers [facility] 10-26 Dispense ity o f Supply Kit 00:00: blood [place] pressure Medical cuff (any Branch brand), take BP at home BID Miscellaneo 2018-09 Yes [id number] I10 - U nivers [facility] 10-26 Dispense ity o f Supply Kit 00:00: blood [place] pressure Medical cuff (any Branch brand), take BP at home BID Miscellaneo 2018-09 Yes [id number] I10 - U nivers [facility] 10-26 Dispense ity o f Supply Kit 00:00: blood [place] pressure Medical cuff (any Branch brand), take BP at home BID Miscellaneo 2018-09 Yes [id number] I10 - U nivers [facility] 10-26 Dispense ity o f Supply Kit 00:00: blood [place] pressure Medical cuff (any Branch brand), take BP at home BID Miscellaneo 2018-09 Yes [id number] I10 - U nivers [facility] 10-26 Dispense ity o f Supply Kit 00:00: blood [place] 00 pressure Medical cuff (any Branch brand), take BP at home BID Miscellaneo 2018-09 Yes [id number] I10 - U nivers [facility] 10-26 Dispense ity o f Supply Kit 00:00: blood [place] 00 pressure Medical cuff (any Branch brand), take BP at home BID Miscellaneo 2018-09 Yes [id number] I10 - U nivers [facility] 10-26 Dispense ity o f Supply Kit 00:00: blood [place] 00 pressure Medical cuff (any Branch brand), take BP at home BID Miscellaneo 2018-09 Yes [id number] I10 - U nivers [facility] 10-26 Dispense ity o f Supply Kit 00:00: blood [place] 00 pressure Medical cuff (any Branch brand), take BP at home BID Miscellaneo 2018-09 Yes [id number] I10 - U nivers [facility] 10-26 Dispense ity o f Supply Kit 00:00: blood [place] 00 pressure Medical cuff (any Branch brand), take BP at home BID Miscellaneo 2018-09 Yes [id number] I10 - U nivers [facility] 10-26 Dispense ity o f Supply Kit 00:00: blood [place] 00 pressure Medical cuff (any Branch brand), take BP at home BID aspirin 81 2018-09 Yes [id number] 81mg Take 1 U nivers mg chewable 1-27 tablet by ity of tablet 00:00: mouth [place] 00 daily. Medical Branch Miscellaneo 2018-09 Yes [id number] I10 - U nivers [facility] 10-26 Dispense ity o f Supply Kit 00:00: blood [place] 00 pressure Medical cuff (any Branch brand), take BP at home BID aspirin 81 2018-09 Yes [id number] 81mg Take 1 U nivers mg chewable 1-27 tablet by ity of tablet 00:00: mouth [place] 00 daily. Medical Branch Miscellaneo 2018-09 Yes [id number] I10 - U nivers [facility] 10-26 Dispense ity o f Supply Kit 00:00: blood [place] 00 pressure Medical cuff (any Branch brand), take BP at home BID aspirin 81 2018-09 Yes [id number] 81mg Take 1 U nivers mg chewable 1-27 tablet by ity of tablet 00:00: mouth [place] 00 daily. Medical Branch Miscellaneo 2018-09 Yes [id number] I10 - U nivers [facility] 10-26 Dispense ity o f Supply Kit 00:00: blood [place] 00 pressure Medical cuff (any Branch brand), take BP at home BID aspirin 81 2018-09 Yes [id number] 81mg Take 1 U nivers mg chewable 1-27 tablet by ity of tablet 00:00: mouth [place] 00 daily. Medical [facility] 2018-09 Yes [id number] I10 - U nivers [facility] 10-26 Dispense ity o f Supply Kit 00:00: blood [place] 00 pressure Medical cuff (any Branch brand), take BP at home BID aspirin 81 2018-09 Yes [id number] 81mg Take 1 U nivers mg chewable 1-27 tablet by ity of tablet 00:00: mouth [place] 00 daily. Medical [facility] 2018-09 Yes [id number] I10 - U nivers [facility] 10-26 Dispense ity o f Supply Kit 00:00: blood [place] 00 pressure Medical cuff (any Branch brand), take BP at home BID aspirin 81 2018-09 Yes [id number] 81mg Take 1 U nivers mg chewable 1-27 tablet by ity of tablet 00:00: mouth [place] 00 daily. Medical [facility] 2018-09 Yes [id number] I10 - U nivers [facility] 10-26 Dispense ity o f Supply Kit 00:00: blood [place] 00 pressure Medical cuff (any Branch brand), take BP at home BID aspirin 81 2018-09 Yes [id number] 81mg Take 1 U nivers mg chewable 1-27 tablet by ity of tablet 00:00: mouth [place] 00 daily. Medical [facility] 2018-09 Yes [id number] I10 - U nivers [facility] 10-26 Dispense ity o f Supply Kit 00:00: blood [place] 00 pressure Medical cuff (any Branch brand), take BP at home BID aspirin 81 2018-09 Yes [id number] 81mg Take 1 U nivers mg chewable 1-27 tablet by ity of tablet 00:00: mouth [place] 00 daily. Medical [facility] 2018-09 Yes [id number] I10 - U nivers [facility] 10-26 Dispense ity o f Supply Kit 00:00: blood [place] 00 pressure Medical cuff (any Branch brand), take BP at home BID aspirin 81 2018-09 Yes [id number] 81mg Take 1 [facility]ivers mg chewable 1-27 tablet by ity of tablet 00:00: mouth [place] 00 daily. Medical Branch [facility] [place] 2018-09 Yes [id number] I10 - U nivers [facility] 10-26 Dispense ity o f Supply Kit 00:00: blood [place] 00 pressure Medical cuff (any Branch brand), take BP at home BID aspirin 81 2018-09 Yes [id number] 81mg Take 1 [facility] nivers mg chewable 1-27 tablet by ity of tablet 00:00: mouth [place] 00 daily. Medical Branch [facility] [place] 2018-09 Yes [id number] I10 - U nivers [facility] 10-26 Dispense ity o f Supply Kit 00:00: blood [place] 00 pressure Medical cuff (any Branch brand), take BP at home BID aspirin 81 2018-09 Yes [id number] 81mg Take 1 [facility] nivers mg chewable 1-27 tablet by ity of tablet 00:00: mouth [place] 00 daily. Medical Branch [facility] [place] 2018-09 Yes [id number] I10 - U nivers [facility] 10-26 Dispense ity o f Supply Kit 00:00: blood [place] 00 pressure Medical cuff (any Branch brand), take BP at home BID aspirin 81 2018-09 Yes [id number] 81mg Take 1 [facility] nivers mg chewable 1-27 tablet by ity of tablet 00:00: mouth [place] 00 daily. Medical Branch [facility] [place] 2018-09 Yes [id number] I10 - U nivers [facility] 10-26 Dispense ity o f Supply Kit 00:00: blood [place] 00 pressure Medical cuff (any Branch brand), take BP at home BID aspirin 81 2018-09 Yes [id number] 81mg Take 1 [facility] nivers mg chewable 1-27 tablet by ity of tablet 00:00: mouth [place] 00 daily. Medical Branch [facility] [place] 2018-09 Yes [id number] I10 - U nivers [facility] 10-26 Dispense ity o f Supply Kit 00:00: blood [place] 00 pressure Medical cuff (any Branch brand), take BP at home BID aspirin 81 2018-09 Yes [id number] 81mg Take 1 [facility] nivers mg chewable 1-27 tablet by ity of tablet 00:00: mouth [place] 00 daily. Medical Branch [facility] [place] 2018-09 Yes [id number] I10 - U nivers [facility] 10-26 Dispense ity o f Supply Kit 00:00: blood [place] 00 pressure Medical cuff (any Branch brand), take BP at home BID aspirin 81 2018-09 Yes [id number] 81mg Take 1 U nivers mg chewable 1-27 tablet by ity of tablet 00:00: mouth [place] 00 daily. Medical [facility] 2018-09 Yes [id number] I10 - U nivers [facility] 10-26 Dispense ity o f Supply Kit 00:00: blood [place] 00 pressure Medical cuff (any Branch brand), take BP at home BID aspirin 81 2018-09 Yes [id number] 81mg Take 1 U nivers mg chewable 1-27 tablet by ity of tablet 00:00: mouth [place] 00 daily. Medical [facility] 2018-09 Yes [id number] I10 - U nivers [facility] 10-26 Dispense ity o f Supply Kit 00:00: blood [place] 00 pressure Medical cuff (any Branch brand), take BP at home BID aspirin 81 2018-09 Yes [id number] 81mg Take 1 U nivers mg chewable 1-27 tablet by ity of tablet 00:00: mouth [place] 00 daily. Medical [facility] 2018-09 Yes [id number] I10 - U nivers [facility] 10-26 Dispense ity o f Supply Kit 00:00: blood [place] 00 pressure Medical cuff (any Branch brand), take BP at home BID aspirin 81 2018-09 Yes [id number] 81mg Take 1 U nivers mg chewable 1-27 tablet by ity of tablet 00:00: mouth [place] 00 daily. Medical [facility] 2018-09 Yes [id number] I10 - U nivers [facility] 10-26 Dispense ity o f Supply Kit 00:00: blood [place] 00 pressure Medical cuff (any Branch brand), take BP at home BID aspirin 81 2018-09 Yes [id number] 81mg Take 1 U nivers mg chewable 1-27 tablet by ity of tablet 00:00: mouth [place] 00 daily. Medical [facility] 2018-09 Yes [id number] I10 - U nivers [facility] 10-26 Dispense ity o f Supply Kit 00:00: blood [place] 00 pressure Medical cuff (any Branch brand), take BP at home BID aspirin 81 2018-09 Yes [id number] 81mg Take 1 [facility] nivers mg chewable 1-27 tablet by ity of tablet 00:00: mouth [place] 00 daily. Medical Branch [facility] [place] 2018-09 Yes [id number] I10 - U nivers [facility] 10-26 Dispense ity o f Supply Kit 00:00: blood [place] 00 pressure Medical cuff (any Branch brand), take BP at home BID aspirin 81 2018-09 Yes [id number] 81mg Take 1 [facility] nivers mg chewable 1-27 tablet by ity of tablet 00:00: mouth [place] 00 daily. Medical Branch [facility] [place] 2018-09 Yes [id number] I10 - U nivers [facility] 10-26 Dispense ity o f Supply Kit 00:00: blood [place] 00 pressure Medical cuff (any Branch brand), take BP at home BID aspirin 81 2018-09 Yes [id number] 81mg Take 1 [facility] nivers mg chewable 1-27 tablet by ity of tablet 00:00: mouth [place] 00 daily. Medical Branch [facility] [place] 2018-09 Yes [id number] I10 - U nivers [facility] 10-26 Dispense ity o f Supply Kit 00:00: blood [place] 00 pressure Medical cuff (any Branch brand), take BP at home BID aspirin 81 2018-09 Yes [id number] 81mg Take 1 [facility] nivers mg chewable 1-27 tablet by ity of tablet 00:00: mouth [place] 00 daily. Medical Branch [facility] [place] 2018-09 Yes [id number] I10 - U nivers [facility] 10-26 Dispense ity o f Supply Kit 00:00: blood [place] 00 pressure Medical cuff (any Branch brand), take BP at home BID aspirin 81 2018-09 Yes [id number] 81mg Take 1 [facility] nivers mg chewable 1-27 tablet by ity of tablet 00:00: mouth [place] 00 daily. Medical Branch [facility] [place] 2018-09 Yes [id number] I10 - U nivers [facility] 10-26 Dispense ity o f Supply Kit 00:00: blood [place] 00 pressure Medical cuff (any Branch brand), take BP at home BID aspirin 81 2018-09 Yes [id number] 81mg Take 1 [facility] nivers mg chewable 1-27 tablet by ity of tablet 00:00: mouth [place] 00 daily. Medical Branch [facility] [place] 2018-09 Yes [id number] I10 - U nivers [facility] 10-26 Dispense ity o f Supply Kit 00:00: blood [place] 00 pressure Medical cuff (any Branch brand), take BP at home BID aspirin 81 2018-09 Yes [id number] 81mg Take 1 [facility] nivers mg chewable 1-27 tablet by ity of tablet 00:00: mouth [place] 00 daily. Medical Branch [facility] [place] 2018-09 Yes [id number] I10 - U nivers [facility] 10-26 Dispense ity o f Supply Kit 00:00: blood [place] 00 pressure Medical cuff (any Branch brand), take BP at home BID aspirin 81 2018-09 Yes [id number] 81mg Take 1 [facility] nivers mg chewable 1-27 tablet by ity of tablet 00:00: mouth [place] 00 daily. Medical Branch [facility] [place] 2018-09 Yes [id number] I10 - U nivers [facility] 10-26 Dispense ity o f Supply Kit 00:00: blood [place] 00 pressure Medical cuff (any Branch brand), take BP at home BID aspirin 81 2018-09 Yes [id number] 81mg Take 1 [facility] nivers mg chewable 1-27 tablet by ity of tablet 00:00: mouth [place] 00 daily. Medical [facility] [place] 2018-09 Yes [id number] I10 - U nivers [facility] 10-26 Dispense ity o f Supply Kit 00:00: blood [place] 00 pressure Medical cuff (any Branch brand), take BP at home BID aspirin 81 2018-09 Yes [id number] 81mg Take 1 U nivers mg chewable 1-27 tablet by ity of tablet 00:00: mouth [place] 00 daily. Medical [facility] 2018-09 Yes [id number] I10 - U nivers [facility] 10-26 Dispense ity o f Supply Kit 00:00: blood [place] 00 pressure Medical cuff (any Branch brand), take BP at home BID aspirin 81 2018-09 Yes [id number] 81mg Take 1 U nivers mg chewable 1-27 tablet by ity of tablet 00:00: mouth [place] 00 daily. Medical [facility] 2018-09 Yes [id number] I10 - U nivers [facility] 10-26 Dispense ity o f Supply Kit 00:00: blood [place] 00 pressure Medical cuff (any Branch brand), take BP at home BID aspirin 81 2018-09 Yes [id number] 81mg Take 1 U nivers mg chewable 1-27 tablet by ity of tablet 00:00: mouth [place] 00 daily. Medical Branch Miscellaneo 2018-09 Yes [id number] I10 - U nivers [facility] 10-26 Dispense ity o f Supply Kit 00:00: blood [place] 00 pressure Medical cuff (any Branch brand), take BP at home BID aspirin 81 2018-09 Yes [id number] 81mg Take 1 [facility] nivers mg chewable 1-27 tablet by ity of tablet 00:00: mouth [place] 00 daily. Medical Branch Miscellaneo 2018-09 Yes [id number] I10 - U nivers [facility] 10-26 Dispense ity o f Supply Kit 00:00: blood [place] 00 pressure Medical cuff (any Branch brand), take BP at home BID carvedilol 2018-09 Yes [id number] 25mg Take 1 [facility] nivers 25 mg 1-27 tablet by ity of tablet 00:00: mouth 2 [place] 00 (two) Medical times Branch daily with meals. aspirin 81 2018-09 Yes [id number] 81mg Take 1 U nivers mg chewable 1-27 tablet by ity of tablet 00:00: mouth [place] [facility]. [id number] I[facility] - U nivers [facility] 10-26 Dispense ity o f Supply Kit 00:00: blood [place] 00 pressure Medical cuff (any Branch brand), take BP at home BID isosorbide 2018-09 Yes [id number] 90mg Take 3 U nivers mononitrate 1-27 tablets by it y of 30 mg 24 hr 00:00: mouth [place] tablet 00 daily. Medical Branch nitroglycer 2018-[id number] 1 Univers in 0.4 mg 1-27 tablet ity of sublingual 00:00: under the [place] tablet 00 tongue Medical every 5 Branch (five) minutes as needed for Chest pain. atorvastati 2018-09 Yes [id number] 40mg Take 1 Univers n 40 mg 1-27 tablet by ity of tablet 00:00: mouth at [place] 00 bedtime. Medical Branch aspirin 81 2018-09 Yes [id number] 81mg Take 1 U nivers mg chewable 1-27 tablet by ity of tablet 00:00: mouth [place] 00 daily. Medical Branch Miscellaneo 2018-09 Yes [id number] I10 - U nivers [facility] 10-26 Dispense ity o f Supply Kit 00:00: blood [place] 00 pressure Medical cuff (any Branch brand), take BP at home BID aspirin 81 2018-09 Yes [id number] 81mg Take 1 U nivers mg chewable 1-27 tablet by ity of tablet 00:00: mouth [place] 00 daily. Medical Branch FLUoxetine 2018-09 Yes [id number] 20mg Take 1 Univers 20 mg 1-27 capsule by ity of capsule 00:00: mouth [place] 00 daily. Medical Branch aspirin 81 2018-09 Yes [id number] 81mg Take 1 U nivers mg chewable 1-27 tablet by ity of tablet 00:00: mouth [place] 00 daily. [facility] [id number] I10 - U nivers [facility] 10-26 Dispense ity o f Supply Kit 00:00: blood [place] 00 pressure Medical cuff (any Branch brand), take BP at home BID losartan-hy 2018-09 Yes [id number] 1{tbl} Take 1 Univers drochloroth 1-27 tablet by ity of iazide 00:00: mouth [place] 50-12.5 mg 00 daily. Medical per tablet [facility] 2018-09 Yes [id number] I10 - U nivers [facility] 10-26 Dispense ity o f Supply Kit 00:00: blood [place] 00 pressure Medical cuff (any Branch brand), take BP at home BID aspirin 81 2018-09 Yes [id number] 81mg Take 1 U nivers mg chewable 1-27 tablet by ity of tablet 00:00: mouth [place] 00 daily. Medical [facility] 2018-09 Yes [id number] I10 - U nivers [facility] 10-26 Dispense ity o f Supply Kit 00:00: blood [place] 00 pressure Medical cuff (any Branch brand), take BP at home BID aspirin 81 2018-09 Yes [id number] 81mg Take 1 U nivers mg chewable 1-27 tablet by ity of tablet 00:00: mouth [place] 00 daily. [facility] Yes [id number] I10 - U nivers [facility] 10-26 Dispense ity o f Supply Kit 00:00: blood [place] 00 pressure Medical cuff (any Branch brand), take BP at home BID aspirin 81 2018-09 Yes [id number] 81mg Take 1 U nivers mg chewable 1-27 tablet by ity of tablet 00:00: mouth [place] 00 daily. Medical [facility] 2018-09 Yes [id number] I10 - U nivers [facility] 10-26 Dispense ity o f Supply Kit 00:00: blood [place] 00 pressure Medical cuff (any Branch brand), take BP at home BID aspirin 81 2018-09 Yes [id number] 81mg Take 1 U nivers mg chewable 1-27 tablet by ity of tablet 00:00: mouth [place] 00 daily. Medical [facility] 2018-09 Yes [id number] I10 - U nivers [facility] 10-26 Dispense ity o f Supply Kit 00:00: blood [place] 00 pressure Medical cuff (any Branch brand), take BP at home BID aspirin 81 2018-09 Yes [id number] 81mg Take 1 U nivers mg chewable 1-27 tablet by ity of tablet 00:00: mouth [place] 00 daily. Medical [facility] 2018-09 Yes [id number] I10 - U nivers [facility] 10-26 Dispense ity o f Supply Kit 00:00: blood [place] 00 pressure Medical cuff (any Branch brand), take BP at home BID aspirin 81 2018-09 Yes [id number] 81mg Take 1 U nivers mg chewable 1-27 tablet by ity of tablet 00:00: mouth [place] 00 daily. Medical [facility] 2018-09 Yes [id number] I10 - U nivers [facility] 10-26 Dispense ity o f Supply Kit 00:00: blood [place] 00 pressure Medical cuff (any Branch brand), take BP at home BID aspirin 81 2018-09- No [id number] 81mg Take 1 Univers mg chewable 1-27 - tablet by it y of tablet 00:00: 00:00 mouth [place] 00 :00 daily. Medical Branch aspirin 81 2018-09- No [id number] 81mg Take 1 [facility] mg chewable 1-27 - tablet by it y of tablet 00:00: 00:00 mouth [place] 00 :00 daily. Medical Branch aspirin 81 2018-09- No [id number] 81mg Take 1 [facility] mg chewable 1-27 - tablet by it y of tablet 00:00: 00:00 mouth [place] 00 :00 daily. Medical Branch aspirin 81 2018-09- No [id number] 81mg Take 1 [facility] mg chewable 1-27 - tablet by it y of tablet 00:00: 00:00 mouth [place] 00 :00 daily. Medical Branch carvedilol 2018-09 2020- No [id number] 25mg Take 1 [facility] 25 mg 10-26 12-17 tablet by ity of tablet 00:00: 00:00 mouth 2 [place] 00 :00 (two) Medical times Branch daily with meals. atorvastati 2018-09 2020- No [id number] 40mg Take 1 Univers n 40 mg 10-26 12-17 tablet by ity of tablet 00:00: 00:00 mouth at [place] 00 :00 bedtime. Medical Branch FLUoxetine 2018-09 2020- No [id number] 20mg Take 1 Univers 20 mg 10-26 12-17 capsule by ity of capsule 00:00: 00:00 mouth [place] 00 :00 daily. Medical Branch nitroglycer 2018-09 2020- No [id number] .4mg Place 1 Univers in 0.4 mg 10-26 12-15 tablet ity of sublingual 00:00: 00:00 under the [place] tablet 00 :00 tongue Medical every 5 Branch (five) minutes as needed for Chest pain. losartan-hy 2018-09 2020- No [id number] 1{tbl} Take 1 Univers drochloroth 10-26 11-20 tablet by it y of iazide 00:00: 00:00 mouth [place] 50-12.5 mg 00 :00 daily. Medical per tablet Branch isosorbide 2018-09 2020- No [id number] 90mg Take 3 Univers mononitrate 27 05-22 tablets by i ty of 30 mg 24 hr 00:00: 00:00 [place] tablet 00 :00 daily. Medical Branch carvedilol 2018-0 Yes [id number] 25mg Take 1 U nivers 25 mg 8-22 tablet by ity of tablet 00:00: mouth 2 [place] 00 (two) Medical times Branch daily with meals. isosorbide 2018-0 Yes 90mg Take 3 Unive rs mononitrate 8-09 tablets by it y of 30 mg 24 hr 00:00: mouth [place] tablet 00 daily. Medical Branch isosorbide 2018-0 Yes 90mg Take 3 Unive rs mononitrate 8-09 tablets by it y of 30 mg 24 hr 00:00: mouth [place] tablet 00 daily. Medical Branch NIFEdipine 2018-0 Yes 90mg Take 1 Unive rs XL 90 mg 24 8-06 tablet by ity of hr tablet 00:00: mouth [place] 00 daily. Medical Branch NIFEdipine Yes 90mg Take 1 Unive rs XL 90 mg 24 8-06 tablet by ity of hr tablet 00:00: mouth [place] 00 daily. Medical Branch NIFEdipine 0 Yes 90mg Take 1 Unive rs XL 90 mg 24 8-06 tablet by ity of hr tablet 00:00: mouth [place] 00 daily. Medical Branch NIFEdipine 0 Yes 90mg Take 1 Unive rs XL 90 mg 24 8-06 tablet by ity of hr tablet 00:00: mouth [place] 00 daily. Medical Branch atorvastati Yes 40mg Take 1 Univ ers n 40 mg 6-04 tablet by ity of tablet 00:00: mouth at [place] 00 bedtime. Medical Branch atorvastati Yes 40mg Take 1 Univ ers n 40 mg 6-04 tablet by ity of tablet 00:00: mouth at [place] 00 bedtime. Medical Branch atorvastati Yes 40mg Take 1 Univ ers n 40 mg 6-04 tablet by ity of tablet 00:00: mouth at [place] 00 bedtime. Medical Branch atorvastati Yes 40mg Take 1 Univ ers n 40 mg 6-04 tablet by ity of tablet 00:00: mouth at [place] 00 bedtime. Medical Branch isosorbide 0 Yes 90mg Take 3 Unive rs mononitrate 6-03 tablets by it y of 30 mg 24 hr 00:00: mouth [place] tablet 00 daily. Medical Branch isosorbide 0 Yes 90mg Take 3 Unive rs mononitrate 6-03 tablets by it y of 30 mg 24 hr 00:00: mouth [place] tablet 00 daily. Medical Branch isosorbide 2019- No 90mg Take 3 Univ ers mononitrate 6-03 08-09 tablets by i ty of 30 mg 24 hr 00:00: 00:00 [place] tablet 00 :00 daily. Medical Branch carvedilol Yes [id number] 25mg Take 1 U nivers 25 mg 5-21 tablet by ity of tablet 00:00: mouth 2 00 (two) Medical times Branch daily with meals. carvedilol Yes [id number] 25mg Take 1 U nivers 25 mg 5-21 tablet by ity of tablet 00:00: mouth 2 (two) Medical times Branch daily with meals. carvedilol Yes [id number] 25mg Take 1 U nivers 25 mg 5-21 tablet by ity of tablet 00:00: mouth 2 00 (two) Medical times Branch daily with meals. carvedilol 2019- No [id number] 25mg Take 1 Univers 25 mg 5-21 08-22 tablet by ity of tablet 00:00: 00:00 mouth 2 [place] 00 :00 (two) Medical times Branch daily with meals. NIFEdipine 2019- No 90mg Take 1 Univ ers XL 90 mg 24 5- 08-06 tablet by it y of hr [...] minutes as needed for Chest pain. traMADOL 2018-0 Yes 50mg Take 1 Univers (ULTRAM) 50 8-12 tablet by ity of mg tablet 00:00: mouth [place] 00 every 6 Medical (six) Branch hours as needed for Pain (scale 4-6). traMADOL 2018-0 Yes 50mg Take 1 Univers (ULTRAM) 50 8-12 tablet by ity of mg tablet 00:00: mouth [place] 00 every 6 Medical (six) Branch hours [...] of tablet 00:00: mouth [place] 00 daily. [facility] Branch aspirin 81 2016-0 Yes 81mg Take 1 Unive rs mg chewable 7-26 tablet by ity of tablet 00:00: mouth [place] 00 daily. [facility] Branch aspirin 81 2015-0 Yes 81mg Take 1 Unive rs mg chewable 7-26 tablet by ity of tablet 00:00: mouth [place] 00 daily. [facility] Branch aspirin 81 2015-0 Yes 81mg Take 1 Unive rs mg chewable 7-26 tablet by ity of tablet 00:00: mouth [place] 00 daily. [facility] Branch Immunizations Ordered Filled Date Status Comments Source Immunization Name Immunization Name SARS-COV-2 COVID-19 2021-03-25 Completed Unive rsity of PFIZER VACCINE 00:00:00 [facility] SARS-COV-2 COVID-19 2021-03-25 Completed Unive rsity of PFIZER VACCINE 00:00:00 [facility] SARS-COV-2 COVID-19 2021-03-25 Completed Unive rsity of PFIZER VACCINE 00:00:00 [facility] SARS-COV-2 COVID-19 2021-03-25 Completed Unive rsity of PFIZER VACCINE 00:00:00 [facility] SARS-COV-2 COVID-19 2021-03-25 Completed Unive rsity of PFIZER VACCINE 00:00:00 [facility] SARS-COV-2 COVID-19 2021-03-25 Completed Unive rsity of PFIZER VACCINE 00:00:00 [facility] SARS-COV-2 COVID-19 2021-03-25 Completed Unive rsity of PFIZER VACCINE 00:00:00 [facility] SARS-COV-2 COVID-19 2021-03-25 Completed Unive rsity of PFIZER VACCINE 00:00:00 [facility] SARS-COV-2 COVID-19 2021-03-25 Completed Unive rsity of PFIZER VACCINE 00:00:00 [facility] SARS-COV-2 COVID-19 2021-03-25 Completed Unive rsity of PFIZER VACCINE 00:00:00 [facility] Branch SARS-COV-2 COVID-19 2021-03-25 Completed Unive rsity of PFIZER VACCINE 00:00:00 [facility] SARS-COV-2 COVID-19 2021-03-25 Completed Unive rsity of PFIZER VACCINE 00:00:00 [facility] SARS-COV-2 COVID-19 2021-03-25 Completed Unive rsity of PFIZER VACCINE 00:00:00 [facility] SARS-COV-2 COVID-19 2021-03-25 Completed Unive rsity of PFIZER VACCINE 00:00:00 [facility] SARS-COV-2 COVID-19 2021-03-25 Completed Unive rsity of PFIZER VACCINE 00:00:00 [facility] SARS-COV-2 COVID-19 2021-03-25 Completed Unive rsity of PFIZER VACCINE 00:00:00 [facility] SARS-COV-2 COVID-19 2021-03-25 Completed Unive rsity of PFIZER VACCINE 00:00:00 [facility] SARS-COV-2 COVID-19 2021-03-25 Completed Unive rsity of PFIZER VACCINE 00:00:00 [facility] SARS-COV-2 COVID-19 2021-03-25 Completed Unive rsity of PFIZER VACCINE 00:00:00 [facility] SARS-COV-2 COVID-19 2021-03-25 Completed Unive rsity of PFIZER VACCINE 00:00:00 [facility] SARS-COV-2 COVID-19 2021-03-25 Completed Unive rsity of PFIZER VACCINE 00:00:00 [facility] SARS-COV-2 COVID-19 2021-03-25 Completed Unive rsity of PFIZER VACCINE 00:00:00 [facility] SARS-COV-2 COVID-19 2021-03-25 Completed Unive rsity of PFIZER VACCINE 00:00:00 [facility] SARS-COV-2 COVID-19 2021-03-25 Completed Unive rsity of PFIZER VACCINE 00:00:00 [facility] SARS-COV-2 COVID-19 2021-03-25 Completed Unive rsity of PFIZER VACCINE 00:00:00 [facility] SARS-COV-2 COVID-19 2021-03-25 Completed Unive rsity of PFIZER VACCINE 00:00:00 [facility] SARS-COV-2 COVID-19 2021-03-25 Completed Unive rsity of PFIZER VACCINE 00:00:00 [facility] SARS-COV-2 COVID-19 2021-03-25 Completed Unive rsity of PFIZER VACCINE 00:00:00 [facility] SARS-COV-2 COVID-19 2021-03-25 Completed Unive rsity of PFIZER VACCINE 00:00:00 [facility] SARS-COV-2 COVID-19 2021-03-25 Completed Unive rsity of PFIZER VACCINE 00:00:00 [facility] SARS-COV-2 COVID-19 2021-03-25 Completed Unive rsity of PFIZER VACCINE 00:00:00 [facility] SARS-COV-2 COVID-19 2021-03-25 Completed Unive rsity of PFIZER VACCINE 00:00:00 [facility] SARS-COV-2 COVID-19 2021-03-25 Completed Unive rsity of PFIZER VACCINE 00:00:00 [facility] SARS-COV-2 COVID-19 2021-03-25 Completed Unive rsity of PFIZER VACCINE 00:00:00 [facility] SARS-COV-2 COVID-19 2021-03-25 Completed Unive rsity of PFIZER VACCINE 00:00:00 [facility] SARS-COV-2 COVID-19 2021-03-25 Completed Unive rsity of PFIZER VACCINE 00:00:00 [facility] SARS-COV-2 COVID-19 2021-03-25 Completed Unive rsity of PFIZER VACCINE 00:00:00 [facility] SARS-COV-2 COVID-19 2021-03-25 Completed Unive rsity of PFIZER VACCINE 00:00:00 [facility] SARS-COV-2 COVID-19 2021-03-25 Completed Unive rsity of PFIZER VACCINE 00:00:00 [facility] SARS-COV-2 COVID-19 2021-03-25 Completed Unive rsity of PFIZER VACCINE 00:00:00 [facility] SARS-COV-2 COVID-19 2021-03-25 Completed Unive rsity of PFIZER VACCINE 00:00:00 [facility] SARS-COV-2 COVID-19 2021-03-25 Completed Unive rsity of PFIZER VACCINE 00:00:00 [facility] SARS-COV-2 COVID-19 2021-03-25 Completed Unive rsity of PFIZER VACCINE 00:00:00 [facility] SARS-COV-2 COVID-19 2021-03-25 Completed Unive rsity of PFIZER VACCINE 00:00:00 [facility] SARS-COV-2 COVID-19 2021-03-25 Completed Unive rsity of PFIZER VACCINE 00:00:00 [facility] SARS-COV-2 COVID-19 2021-03-25 Completed Unive rsity of PFIZER VACCINE 00:00:00 [facility] SARS-COV-2 COVID-19 2021-03-25 Completed Unive rsity of PFIZER VACCINE 00:00:00 [facility] SARS-COV-2 COVID-19 2021-03-25 Completed Unive rsity of PFIZER VACCINE 00:00:00 [facility] SARS-COV-2 COVID-19 2021-03-25 Completed Unive rsity of PFIZER VACCINE 00:00:00 [facility] SARS-COV-2 COVID-19 2021-03-25 Completed Unive rsity of PFIZER VACCINE 00:00:00 [facility] SARS-COV-2 COVID-19 2021-03-25 Completed Unive rsity of PFIZER VACCINE 00:00:00 [facility] SARS-COV-2 COVID-19 2021-03-25 Completed Unive rsity of PFIZER VACCINE 00:00:00 [facility] SARS-COV-2 COVID-19 2021-03-25 Completed Unive rsity of PFIZER VACCINE 00:00:00 [facility] SARS-COV-2 COVID-19 2021-03-25 Completed Unive rsity of PFIZER VACCINE 00:00:00 [facility] SARS-COV-2 COVID-19 2021-03-25 Completed Unive rsity of PFIZER VACCINE 00:00:00 [place] [facility] SARS-COV-2 COVID-19 2021-03-25 Completed Unive rsity of PFIZER VACCINE 00:00:00 [facility] SARS-COV-2 COVID-19 2021-03-25 Completed Unive rsity of PFIZER VACCINE 00:00:00 [facility] SARS-COV-2 COVID-19 2021-03-25 Completed Unive rsity of PFIZER VACCINE 00:00:00 [facility] SARS-COV-2 COVID-19 2021-03-25 Completed Unive rsity of PFIZER VACCINE 00:00:00 [facility] SARS-COV-2 COVID-19 2021-03-25 Completed Unive rsity of PFIZER VACCINE 00:00:00 [facility] SARS-COV-2 COVID-19 2021-03-25 Completed Unive rsity of PFIZER VACCINE 00:00:00 [facility] SARS-COV-2 COVID-19 2021-03-25 Completed Unive rsity of PFIZER VACCINE 00:00:00 [facility] SARS-COV-2 COVID-19 2021-03-25 Completed Unive rsity of PFIZER VACCINE 00:00:00 [facility] SARS-COV-2 COVID-19 2021-03-25 Completed Unive rsity of PFIZER VACCINE 00:00:00 [facility] SARS-COV-2 COVID-19 2021-03-25 Completed Unive rsity of PFIZER VACCINE 00:00:00 [facility] SARS-COV-2 COVID-19 2021-03-25 Completed Unive rsity of PFIZER VACCINE 00:00:00 [facility] SARS-COV-2 COVID-19 2021-03-25 Completed Unive rsity of PFIZER VACCINE 00:00:00 [facility] SARS-COV-2 COVID-19 2021-03-25 Completed Unive rsity of PFIZER VACCINE 00:00:00 [facility] SARS-COV-2 COVID-19 2021-03-25 Completed Unive rsity of PFIZER VACCINE 00:00:00 [facility] SARS-COV-2 COVID-19 2021-03-25 Completed Unive rsity of PFIZER VACCINE 00:00:00 [facility] Influenza Virus 2019-12-01 Completed Universit y of Vaccine 00:00:00 [facility] Influenza Virus 2019-12-01 Completed Universit y of Vaccine 00:00:00 [facility] Influenza Virus 2019-12-01 Completed Universit y of Vaccine 00:00:00 [facility] Influenza Virus 2019-12-01 Completed Universit y of Vaccine 00:00:00 [facility] Influenza Virus 2019-12-01 Completed Universit y of Vaccine 00:00:00 [facility] Influenza Virus 2019-12-01 Completed Universit y of Vaccine 00:00:00 [facility] Influenza Virus 2019-12-01 Completed Universit y of Vaccine 00:00:00 [facility] Influenza Virus 2019-12-01 Completed Universit y of Vaccine 00:00:00 [facility] Influenza Virus 2019-12-01 Completed Universit y of Vaccine 00:00:00 [facility] Influenza Virus 2019-12-01 Completed Universit y of Vaccine 00:00:00 [facility] Influenza Virus 2019-12-01 Completed Universit y of Vaccine 00:00:00 [facility] Influenza Virus 2019-12-01 Completed Universit y of Vaccine 00:00:00 [facility] Influenza Virus 2019-12-01 Completed Universit y of Vaccine 00:00:00 [facility] Influenza Virus 2019-12-01 Completed Universit y of Vaccine 00:00:00 [facility] Influenza Virus 2019-12-01 Completed Universit y of Vaccine 00:00:00 [facility] Influenza Virus 2019-12-01 Completed Universit y of Vaccine 00:00:00 [facility] Influenza Virus 2019-12-01 Completed Universit y of Vaccine 00:00:00 [facility] Influenza Virus 2019-12-01 Completed Universit y of Vaccine 00:00:00 [facility] Influenza Virus 2019-12-01 Completed Universit y of Vaccine 00:00:00 [facility] Influenza Virus 2019-12-01 Completed Universit y of Vaccine 00:00:00 [facility] Influenza Virus 2019-12-01 Completed Universit y of Vaccine 00:00:00 [facility] Influenza Virus 2019-12-01 Completed Universit y of Vaccine 00:00:00 [facility] Influenza Virus 2019-12-01 Completed Universit y of Vaccine 00:00:00 [facility] Influenza Virus 2019-12-01 Completed Universit y of Vaccine 00:00:00 [facility] Influenza Virus 2019-12-01 Completed Universit y of Vaccine 00:00:00 [facility] Influenza Virus 2019-12-01 Completed Universit y of Vaccine 00:00:00 [facility] Influenza Virus 2019-12-01 Completed Universit y of Vaccine 00:00:00 [facility] Influenza Virus 2019-12-01 Completed Universit y of Vaccine 00:00:00 [facility] Influenza Virus 2019-12-01 Completed Universit y of Vaccine 00:00:00 [facility] Influenza Virus 2019-12-01 Completed Universit y of Vaccine 00:00:00 [facility] Influenza Virus 2019-12-01 Completed Universit y of Vaccine 00:00:00 [facility] Influenza Virus 2019-12-01 Completed Universit y of Vaccine 00:00:00 [facility] Influenza Virus 2019-12-01 Completed Universit y of Vaccine 00:00:00 [facility] Influenza Virus 2019-12-01 Completed Universit y of Vaccine 00:00:00 [facility] Influenza Virus 2019-12-01 Completed Universit y of Vaccine 00:00:00 [facility] Influenza Virus 2019-12-01 Completed Universit y of Vaccine 00:00:00 [facility] Influenza Virus 2019-12-01 Completed Universit y of Vaccine 00:00:00 [facility] Influenza Virus 2019-12-01 Completed Universit y of Vaccine 00:00:00 [facility] Influenza Virus 2019-12-01 Completed Universit y of Vaccine 00:00:00 [facility] Influenza Virus 2019-12-01 Completed Universit y of Vaccine 00:00:00 [facility] Influenza Virus 2019-12-01 Completed Universit y of Vaccine 00:00:00 [facility] Influenza Virus 2019-12-01 Completed Universit y of Vaccine 00:00:00 [facility] Influenza Virus 2019-12-01 Completed Universit y of Vaccine 00:00:00 [facility] Influenza Virus 2019-12-01 Completed Universit y of Vaccine 00:00:00 [facility] Influenza Virus 2019-12-01 Completed Universit y of Vaccine 00:00:00 [facility] Influenza Virus 2019-12-01 Completed Universit y of Vaccine 00:00:00 [facility] Influenza Virus 2019-12-01 Completed Universit y of Vaccine 00:00:00 [facility] Influenza Virus 2019-12-01 Completed Universit y of Vaccine 00:00:00 [facility] Influenza Virus 2019-12-01 Completed Universit y of Vaccine 00:00:00 [facility] Influenza Virus 2019-12-01 Completed Universit y of Vaccine 00:00:00 [facility] Influenza Virus 2019-12-01 Completed Universit y of Vaccine 00:00:00 [facility] Influenza Virus 2019-12-01 Completed Universit y of Vaccine 00:00:00 [facility] Influenza Virus 2019-12-01 Completed Universit y of Vaccine 00:00:00 [facility] Influenza Virus 2019-12-01 Completed Universit y of Vaccine 00:00:00 [facility] Influenza Virus 2019-12-01 Completed Universit y of Vaccine 00:00:00 [facility] Influenza Virus 2019-12-01 Completed Universit y of Vaccine 00:00:00 [facility] Influenza Virus 2019-12-01 Completed Universit y of Vaccine 00:00:00 [facility] Influenza Virus 2019-12-01 Completed Universit y of Vaccine 00:00:00 [facility] Influenza Virus 2019-12-01 Completed [facility]it y of Vaccine 00:00:00 [facility] Influenza Virus 2019-12-01 Completed [facility]it y of Vaccine 00:00:00 [facility] Influenza Virus 2019-12-01 Completed Universit y of Vaccine 00:00:00 [facility] Influenza Virus 2019-12-01 Completed Universit y of Vaccine 00:00:00 [facility] Influenza Virus 2019-12-01 Completed [facility]it y of Vaccine 00:00:00 [facility] Influenza Virus 2019-12-01 Completed Universit y of Vaccine 00:00:00 [facility] Influenza Virus 2019-12-01 Completed [facility]it y of Vaccine 00:00:00 [facility] Influenza Virus 2019-12-01 Completed [facility]it y of Vaccine 00:00:00 [facility] Influenza Virus 2019-12-01 Completed [facility]it y of Vaccine 00:00:00 [facility] Influenza Virus 2019-12-01 Completed Universit y of Vaccine 00:00:00 [facility] Influenza Virus 2019-12-01 Completed [facility]it y of Vaccine 00:00:00 [facility] Influenza Virus 2019-12-01 Completed [facility]it y of Vaccine 00:00:00 [facility] Influenza Virus 2019-12-01 Completed [facility]it y of Vaccine 00:00:00 [facility] Influenza Virus 2019-12-01 Completed [facility]it y of Vaccine 00:00:00 [facility] Influenza Virus 2019-12-01 Completed [facility]it y of Vaccine 00:00:00 [facility] Influenza Virus 2019-12-01 Completed [facility]it y of Vaccine 00:00:00 [facility] Influenza Virus 2019-12-01 Completed [facility]it y of Vaccine 00:00:00 [facility] Influenza Virus 2019-12-01 Completed [facility]it y of Vaccine 00:00:00 [facility] Influenza Virus 2019-12-01 Completed [facility]it y of Vaccine 00:00:00 [facility] Influenza Virus 2019-12-01 Completed [facility]it y of Vaccine 00:00:00 [facility] Influenza Virus 2019-12-01 Completed [facility]it y of Vaccine 00:00:00 [facility] Influenza Virus 2019-12-01 Completed [facility]it y of Vaccine 00:00:00 [facility] Influenza Virus 2019-12-01 Completed [facility]it y of Vaccine 00:00:00 [facility] Influenza Virus 2019-12-01 Completed [facility]it y of Vaccine 00:00:00 [facility] Influenza Virus 2019-12-01 Completed [facility]it y of Vaccine 00:00:00 [facility] Influenza Virus 2018-12-06 Completed [facility] y of Vaccine [facility] 00:[facility]:00 [place] [facility] Influenza Virus 2018-12-06 Completed [facility]it y of Vaccine [facility] 00:00:00 [place] [facility] Influenza [...] ical Multi-dose 6+ MO Branch Influenza Virus Unknown Completed [facility] y of Vaccine [facility] [place] [facility] Multi-dose [facility]+ [facility] Influenza Virus Unknown Completed [facility] y of Vaccine [facility] SARS-COV-2 COVID-19 Unknown Completed Unive rsity of PFIZER VACCINE [place] [facility] Influenza Virus Unknown Completed [facility] y of Vaccine [facility] [place] [facility] Multi-dose [facility] Influenza Virus Unknown Completed [facility] Vaccine [facility] SARS-COV-2 COVID-19 Unknown Completed [facility]ive rsity of PFIZER VACCINE [place] [facility] Influenza Virus Unknown Completed [facility] of Vaccine [facility] [place] [facility] Multi-dose [facility] Influenza Virus Unknown Completed [facility] Vaccine [facility] SARS-COV-2 COVID-19 Unknown Completed [facility]ive rsity of PFIZER VACCINE [place] [facility] Influenza Virus Unknown Completed [facility] of Vaccine [facility] [place] [facility] Multi-dose 6+ [facility] Influenza Virus Unknown Completed [facility] Vaccine [facility] SARS-COV-2 COVID-19 Unknown Completed [facility]ive rsity of PFIZER VACCINE [place] [facility] Influenza Virus Unknown Completed [facility] of Vaccine [facility] [place] [facility] Multi-dose 6[facility] Influenza Virus Unknown Completed [facility] Vaccine [facility] SARS-COV-2 COVID-19 Unknown Completed [facility]ive rsity of PFIZER VACCINE [place] [facility] Influenza Virus Unknown Completed [facility] of Vaccine [facility] [place] [facility] Multi-dose 6+ [facility] Influenza Virus Unknown Completed [facility] of Vaccine [place] [facility] SARS-COV-2 COVID-19 Unknown Completed [facility]ive rsity of PFIZER VACCINE [place] [facility] Influenza Virus Unknown Completed [facility] of Vaccine [facility] [place] [facility] Multi-dose 6+ [facility] Influenza Virus Unknown Completed [facility] of Vaccine [facility] SARS-COV-2 COVID-19 Unknown Completed [facility]ive rsity of PFIZER VACCINE [place] [facility] Influenza Virus Unknown Completed [facility] of Vaccine [facility] [place] [facility] Multi-dose 6+ [facility] Influenza Virus Unknown Completed [facility] of Vaccine [place] [facility] SARS-COV-2 COVID-19 Unknown Completed [facility]ive rsity of PFIZER VACCINE [place] [facility] Influenza Virus Unknown Completed [facility] of Vaccine [facility] [place] [facility] Multi-dose 6[facility] Influenza Virus Unknown Completed [facility] Vaccine [facility] SARS-COV-2 COVID-19 Unknown Completed [facility]ive rsity of PFIZER VACCINE [place] [facility] Influenza Virus Unknown Completed [facility] of Vaccine [facility] [place] [facility] Multi-dose 6[facility] Influenza Virus Unknown Completed [facility] Vaccine [facility] SARS-COV-2 COVID-19 Unknown Completed [facility]ive rsity of PFIZER VACCINE [place] [facility] Influenza Virus Unknown Completed [facility] of Vaccine [facility] [place] [facility] Multi-dose [facility] Influenza Virus Unknown Completed [facility] Vaccine [place] [facility] SARS-COV-2 COVID-19 Unknown Completed [facility]ive rsity of PFIZER VACCINE [place] [facility] Influenza Virus Unknown Completed [facility] of Vaccine [facility] [place] [facility] Multi-dose [facility] Influenza Virus Unknown Completed [facility] Vaccine [facility] SARS-COV-2 COVID-19 Unknown Completed Unive rsity of PFIZER VACCINE [place] [facility] Influenza Virus Unknown Completed [facility] of Vaccine [facility] [place] [facility] Multi-dose 6+ [facility] Influenza Virus Unknown Completed [facility] of Vaccine [place] [facility] SARS-COV-2 COVID-19 Unknown Completed [facility]ive rsity of PFIZER VACCINE [place] [facility] Influenza Virus Unknown Completed [facility] of Vaccine [facility] [place] [facility] Multi-dose 6+ [facility] Influenza Virus Unknown Completed [facility] of Vaccine [place] [facility] SARS-COV-2 COVID-19 Unknown Completed [facility]ive rsity of PFIZER VACCINE [place] [facility] Influenza Virus Unknown Completed [facility] of Vaccine [facility] [place] [facility] Multi-dose [facility] Influenza Virus Unknown Completed [facility] Vaccine [place] [facility] SARS-COV-2 COVID-19 Unknown Completed Unive rsity of PFIZER VACCINE [place] [facility] Influenza Virus Unknown Completed [facility] of Vaccine [facility] [place] [facility] Multi-dose 6[facility] Influenza Virus Unknown Completed [facility] of Vaccine [place] [facility] SARS-COV-2 COVID-19 Unknown Completed [facility]ive rsity of PFIZER VACCINE [place] [facility] Influenza Virus Unknown Completed [facility] of Vaccine [facility] [place] [facility] Multi-dose 6[facility] Influenza Virus Unknown Completed [facility] Vaccine [place] [facility] SARS-COV-2 COVID-19 Unknown Completed Unive rsity of PFIZER VACCINE [place] [facility] Influenza Virus Unknown Completed [facility] of Vaccine [facility] [place] [facility] Multi-dose [facility] Influenza Virus Unknown Completed [facility] of Vaccine [place] [facility] SARS-COV-2 COVID-19 Unknown Completed [facility]ive rsity of PFIZER VACCINE [place] [facility] Influenza Virus Unknown Completed [facility] of Vaccine [facility] [place] [facility] Multi-dose 6[facility] Influenza Virus Unknown Completed [facility] of Vaccine [place] [facility] SARS-COV-2 COVID-19 Unknown Completed [facility]ive rsity of PFIZER VACCINE [place] [facility] Influenza Virus Unknown Completed [facility] y of Vaccine [facility] [place] [facility] Multi-dose 6[facility] Influenza Virus Unknown Completed [facility] of Vaccine [place] [facility] SARS-COV-2 COVID-19 Unknown Completed Unive rsity of PFIZER VACCINE [place] [facility] Influenza Virus Unknown Completed [facility] of Vaccine [facility] [place] [facility] Multi-dose [facility] Influenza Virus Unknown Completed [facility] of Vaccine [place] [facility] SARS-COV-2 COVID-19 Unknown Completed Unive rsity of PFIZER VACCINE [place] [facility] Influenza Virus Unknown Completed [facility] of Vaccine [facility] [place] [facility] Multi-dose 6[facility] Influenza Virus Unknown Completed [facility] of Vaccine [place] [facility] SARS-COV-2 COVID-19 Unknown Completed Unive rsity of PFIZER VACCINE [place] [facility] Influenza Virus Unknown Completed [facility] y of Vaccine [facility] [place] [facility] Multi-dose 6[facility] Influenza Virus Unknown Completed [facility] y of Vaccine [place] [facility] SARS-COV-2 COVID-19 Unknown Completed Unive rsity of PFIZER VACCINE [place] [facility] Influenza Virus Unknown Completed [facility] y of Vaccine [facility] [place] [facility] Multi-dose 6+ [facility] Influenza Virus Unknown Completed [facility] y of Vaccine [place] [facility] SARS-COV-2 COVID-19 Unknown Completed Unive rsity of PFIZER VACCINE [place] [facility] Influenza Virus Unknown Completed [facility] y of Vaccine [facility] [place] [facility] Multi-dose 6[facility] Influenza Virus Unknown Completed [facility] of Vaccine [place] [facility] SARS-COV-2 COVID-19 Unknown Completed Unive rsity of PFIZER VACCINE [place] [facility] Influenza Virus Unknown Completed [facility] y of Vaccine [facility] [place] [facility] Multi[facility]dose 6[facility] Influenza Virus Unknown Completed [facility] y of Vaccine [place] [facility] SARS-COV-2 COVID-19 Unknown Completed Unive rsity of PFIZER VACCINE [place] [facility] Influenza Virus Unknown Completed [facility] y of Vaccine [facility] [place] [facility] Multi-dose 6[facility] Influenza Virus Unknown Completed [facility] of Vaccine [place] [facility] SARS-COV-2 COVID-19 Unknown Completed Unive rsity of PFIZER VACCINE [place] [facility] Influenza Virus Unknown Completed [facility] y of Vaccine [facility] [place] [facility] Multi-dose 6[facility] Influenza Virus Unknown Completed [facility] y of Vaccine [place] [facility] SARS-COV-2 COVID-19 Unknown Completed Unive rsity of PFIZER VACCINE [place] [facility] Influenza Virus Unknown Completed [facility] y of Vaccine [facility] IM [place] [facility] Multi-dose 6+ [facility] Influenza Virus Unknown Completed [facility] y of Vaccine [place] [facility] SARS-COV-2 COVID-19 Unknown Completed Unive rsity of PFIZER VACCINE [place] [facility] Influenza Virus Unknown Completed [facility] y of Vaccine [facility] [place] [facility] Multi-dose 6+ [facility] Influenza Virus Unknown Completed [facility] y of Vaccine [place] [facility] SARS-COV-2 COVID-19 Unknown Completed Unive rsity of PFIZER VACCINE [place] [facility] Influenza Virus Unknown Completed [facility] y of Vaccine [facility] [place] [facility] Multi-dose 6+ [facility] Influenza Virus Unknown Completed [facility] y of Vaccine [place] [facility] SARS-COV-2 COVID-19 Unknown Completed Unive rsity of PFIZER VACCINE [place] [facility] Influenza Virus Unknown Completed [facility] y of Vaccine [facility] [place] [facility] Multi-dose 6+ [facility] Influenza Virus Unknown Completed [facility] y of Vaccine [facility] SARS-COV-2 COVID-19 Unknown Completed Unive rsity of PFIZER VACCINE [place] [facility] Influenza Virus Unknown Completed [facility] y of Vaccine [facility] [place] [facility] Multi-dose 6+ [facility] Influenza Virus Unknown Completed [facility] y of Vaccine [facility] SARS-COV-2 COVID-19 Unknown Completed Unive rsity of PFIZER VACCINE [place] [facility] Influenza Virus Unknown Completed [facility] y of Vaccine [facility] [place] [facility] Multi-dose 6+ [facility] Influenza Virus Unknown Completed [facility] y of Vaccine [facility] SARS-COV-2 COVID-19 Unknown Completed Unive rsity of PFIZER VACCINE [place] [facility] Influenza Virus Unknown Completed [facility] y of Vaccine [facility] [place] [facility] Multi-dose 6+ [facility] Influenza Virus Unknown Completed [facility] y of Vaccine [facility] SARS-COV-2 COVID-19 Unknown Completed Unive rsity of PFIZER VACCINE [place] [facility] Influenza Virus Unknown Completed [facility] y of Vaccine Quad IM [place] [facility] Multi-dose 6+ [facility] Influenza Virus Unknown Completed [facility] y of Vaccine [facility] SARS-COV-2 COVID-19 Unknown Completed Unive rsity of PFIZER VACCINE [place] [facility] Influenza Virus Unknown Completed [facility] y of Vaccine Quad IM [place] [facility] Multi-dose 6+ [facility] Influenza Virus Unknown Completed [facility]it y of Vaccine [place] [facility] SARS-COV-2 COVID-19 Unknown Completed Unive rsity of PFIZER VACCINE [place] [facility] Vital Signs Vital Name Observation Time Observation Value Comments Source Systolic blood 2023-07-10 19:30:00 164 mm[Hg] Univer sity of pressure [facility] Diastolic blood 2023-07-10 19:30:00 74 mm[Hg] Unive rsity of pressure [facility] Heart rate 2023-07-10 19:30:00 61 [facility] Body temperature 2023-07-10 19:25:00 36.33 [address] [facility] ersity of [facility] Respiratory rate 2023-07-10 19:25:00 16 /min Univ ersity of [facility] Body height 2023-07-10 19:25:00 167.6 cm [facility] [place] [facility] Body weight 2023-07-10 19:25:00 79.379 kg [facility] BMI 2023-07-10 19:25:00 28.25 kg/m2 [facility] Oxygen saturation in 2023-07-10 19:25:00 97 /min University of Arterial blood by [facility] eric Pulse oximetry Branch Systolic blood 2023-06-22 23:31:00 157 mm[Hg] Univer sity of pressure [facility] Diastolic blood 2023-06-22 23:31:00 71 mm[Hg] Unive rsity of pressure [facility] Heart rate 2023-06-22 23:31:00 59 /min [facility] Body temperature 2023-06-22 23:31:00 36.78 Nikki Univ ersity of [facility] Respiratory rate 2023-06-22 23:31:00 16 /min Univ ersity of [facility] Oxygen saturation in 2023-06-22 23:31:00 94 /min University of Arterial blood by [facility] Pulse oximetry Branch Body weight 2023-06-22 09:53:00 88.996 kg [facility] BMI 2023-06-22 09:53:00 31.67 kg/m2 [facility] Body height 2023-06-21 19:47:00 167.6 cm [facility] Systolic blood 2023-06-21 13:52:00 187 mm[Hg] Univer sity of pressure [facility] Diastolic blood 2023-06-21 13:52:00 89 mm[Hg] Unive rsity of pressure [facility] Heart rate 2023-06-21 13:52:00 73 /min [facility] Body temperature 2023-06-21 13:52:00 37.39 Nikki Univ ersity of [facility] Respiratory rate 2023-06-21 13:52:00 19 /min Univ ersity of [facility] Body height 2023-06-21 13:52:00 167.6 cm [facility] Body weight 2023-06-21 13:52:00 79.833 kg [facility] [place] [facility] BMI 2023-06-21 13:52:00 31.67 kg/m2 Universi ty of [facility] Oxygen saturation in 2023-06-21 13:52:00 97 /min University Arterial blood by [facility] Pulse oximetry Branch Systolic blood 2023-05-21 20:55:00 159 mm[Hg] Univer sity of pressure [facility] Diastolic blood 2023-05-21 20:55:00 79 mm[Hg] Unive rsity of pressure [facility] Heart rate 2023-05-21 20:55:00 61 /min Universi ty of [facility] Body height 2023-05-21 20:55:00 167.6 cm Universi ty of [facility] Body weight 2023-05-21 20:55:00 78.926 kg Universi ty of [facility] BMI 2023-05-21 20:55:00 28.08 kg/m2 Universi ty of [facility] Systolic blood 2023-05-21 20:55:00 159 mm[Hg] Univer sity of pressure [facility] Diastolic blood 2023-05-21 20:55:00 79 mm[Hg] Unive rsity of pressure [facility] Heart rate 2023-05-21 20:55:00 61 /min Universi ty of [facility] Body height 2023-05-21 20:55:00 167.6 cm Universi ty of [facility] Body weight 2023-05-21 20:55:00 78.926 kg Universi ty of [facility] BMI 2023-05-21 20:55:00 28.08 kg/m2 Universi ty of [facility] Systolic blood 2023-04-09 22:23:00 144 mm[Hg] Univer sity of pressure [facility] Diastolic blood 2023-04-09 22:23:00 77 mm[Hg] Unive rsity of pressure [facility] Heart rate 2023-04-09 22:23:00 60 /min Universi ty of [facility] Respiratory rate 2023-04-09 22:23:00 16 /min Univ ersity of [facility] Body height 2023-04-09 22:23:00 167.6 cm Universi ty of [facility] Body weight 2023-04-09 22:23:00 78.472 kg [facility] BMI 2023-04-09 22:23:00 27.92 kg/m2 [facility] Oxygen saturation in 2023-04-09 22:23:00 99 /min [facility] blood by [place] [facility] Pulse oxim[facility] Systolic blood 2023-04-05 19:58:00 171 mm[Hg] Univer sity of pressure [facility] Diastolic blood 2023-04-05 19:58:00 90 mm[Hg] Unive rsity of pressure [facility] Heart rate 2023-04-05 19:58:00 75 /min [facility] Body temperature 2023-04-05 19:55:00 36.61 Nikki Univ ers[facility] Body height 2023-04-05 19:55:00 167.6 cm [facility] Body weight 2023-04-05 19:55:00 79.334 kg [facility] BMI 2023-04-05 19:55:00 28.23 kg/m2 [facility] Oxygen saturation in 2023-04-05 19:55:00 99 /min [facility] of Arterial blood by [facility] Pulse oximetry Branch Systolic blood 2023-03-11 19:27:00 179 mm[Hg] Univer sity of pressure [facility] Diastolic blood 2023-03-11 19:27:00 85 mm[Hg] Unive rsity of pressure [facility] Heart rate 2023-03-11 19:17:00 65 /min [facility] Body height 2023-03-11 19:17:00 167.6 cm [facility] Body weight 2023-03-11 19:17:00 81.194 kg [facility] BMI 2023-03-11 19:17:00 28.89 kg/m2 [facility] Oxygen saturation in 2023-03-11 19:17:00 98 /min University of Arterial blood by [facility] eric Pulse oximetry Branch Systolic blood 2023-03-04 18:38:00 139 mm[Hg] Univer sity of pressure [facility] Diastolic blood 2023-03-04 18:38:00 71 mm[Hg] Unive rsity of pressure [facility] Heart rate 2023-03-04 18:38:00 66 /min [facility] Oxygen saturation in 2023-03-04 18:38:00 96 /min University of Arterial blood by [facility] Pulse oximetry Branch Body temperature 2023-03-04 18:36:[address] [facility] ersity of [facility] Body height 2023-03-04 18:36:00 167.6 cm [facility] Body weight 2023-03-04 18:36:00 82.419 kg [facility] BMI 2023-03-04 18:36:00 29.33 kg/m2 [facility] Systolic blood 2023-03-01 18:08:00 145 mm[Hg] Univer sity of pressure [facility] Diastolic blood 2023-03-01 18:08:00 77 mm[Hg] Unive rsity of pressure [facility] Heart rate 2023-03-01 18:04:00 62 /min [facility] Respiratory rate 2023-03-01 18:04:00 18 /min [facility] Body height 2023-03-01 18:04:00 167.6 cm [facility] Body weight 2023-03-01 18:04:00 82.419 kg [facility] BMI 2023-03-01 18:04:00 29.33 kg/m2 [facility] Oxygen saturation in 2023-03-01 18:04:00 99 /min [facility] of Arterial blood by [facility] Pulse oximetry Branch WEIGHT 2023-02-01 06:00:00 87.045 kg WEIGHT 2023-01-31 06:00:00 86.864 kg HEIGHT 2023-01-22 19:00:00 167.6 cm WEIGHT 2023-01-22 19:00:00 89.9 kg HEIGHT 2023-01-22 15:00:00 167.6 cm WEIGHT 2023-01-22 15:00:00 89.9 kg WEIGHT 2023-02-01 06:00:00 87.045 kg WEIGHT 2023-01-31 06:00:00 86.864 kg HEIGHT 2023-01-22 19:00:00 167.6 cm WEIGHT 2023-01-22 19:00:00 89.9 kg HEIGHT 2023-01-22 15:00:00 167.6 cm WEIGHT 2023-01-22 15:00:00 89.9 kg WEIGHT 2023-02-01 06:00:00 87.045 kg WEIGHT 2023-01-31 06:00:00 86.864 kg HEIGHT 2023-01-22 19:00:00 167.6 cm WEIGHT 2023-01-22 19:00:00 89.9 kg HEIGHT 2023-01-22 15:00:00 167.6 cm WEIGHT 2023-01-22 15:00:00 89.9 kg Systolic blood 2019-10-16 04:36:00 181 mm[Hg] Univer sity of [facility] Diastolic blood 2019-10-16 04:36:00 88 mm[Hg] Unive rsity [facility] Heart rate 2019-10-16 04:36:00 54 /min [facility] Respiratory rate 2019-10-16 04:36:00 14 /min [facility] Oxygen saturation in 2019-10-16 04:36:00 98 /min [facility] Arterial blood by [facility] Pulse oximetry Branch BMI 2019-10-16 01:41:00 30.18 kg/m2 [facility] Body temperature 2019-10-16 01:41:00 36.39 Nikki [facility] Body height 2019-10-16 01:41:00 167.6 cm [facility] Body weight 2019-10-16 01:41:00 84.823 kg [facility] Heart rate 2023-02-01 12:15:00 59 /min [facility] Systolic blood 2023-02-01 11:30:00 140 mm[Hg] [facility] Diastolic blood 2023-02-01 11:30:00 73 mm[Hg] [facility] Body temperature 2023-02-01 11:30:00 36.28 Nikki [facility] Respiratory rate 2023-02-01 11:30:00 18 /min [facility] Oxygen saturation in 2023-02-01 11:30:00 94 /min [facility] Arterial blood by Medical Ce [facility]ter Pulse oximetry Body weight 2023-02-01 06:00:00 87.045 kg [facility] BMI 2023-02-01 06:00:00 30.97 kg/m2 [facility] Body height 2023-01-22 19:00:00 167.6 cm [facility] Procedures Procedure Date / Time Performing Clinician Source Performed EXTERNAL PROVIDER 2023-07-19 05:01:00 Doctor Unassigned, No [facility] RECORDS Name [facility] DONA,POST-VOID 2023-07-10 19:46:00 Keith Moreno [facility] RES,US,NON-IMAGING Medical Bran h PHYSICIAN ORDERS 2023-07-04 05:01:00 Doctor Unassigned, No [facility] Name [facility] BASIC METABOLIC PANEL 2023-06-22 09:57:00 [facility] (NA, K, CL, CO2, Medical Branch GLUCOSE, BUN, CREATININE, CA) BASIC METABOLIC PANEL 2023-06-22 09:57:00 [facility] (NA, K, CL, CO2, Medical Branch GLUCOSE, BUN, CREATININE, CA) XR CHEST 1 VW 2023-06-21 19:08:04 [facility] XR CHEST 1 VW 2023-06-21 19:08:04 [facility] BASIC METABOLIC PANEL 2023-06-21 18:54:00 [facility] (NA, K, CL, CO2, Medical Branch GLUCOSE, BUN, CREATININE, CA) N-TERMINAL PRO-BNP 2023-06-21 18:54:00 [facility] BASIC METABOLIC PANEL 2023-06-21 18:54:00 [facility] (NA, K, CL, CO2, Medical Branch GLUCOSE, BUN, CREATININE, CA) N-TERMINAL PRO-BNP 2023-06-21 18:54:00 [facility] URINALYSIS 2023-06-21 16:29:00 Markus, [facility] Medical Branch URINE CULTURE 2023-06-21 16:29:00 [facility] URINALYSIS 2023-06-21 16:29:00 [facility] URINE CULTURE 2023-06-21 16:29:00 [facility] URINE CULTURE 2023-06-21 15:40:00 [facility] URINE CULTURE 2023-06-21 15:40:00 [facility] [place] LASER ABLATION OF 2023-06-21 15:04:00 Markus [facility] PROSTATE Medical Branch DAY SURGERY - VICTORY 2023-06-21 05:01:00 Doctor Unassigned, No [facility] Name Medical Branch EXTERNAL PROVIDER 2023-06-20 05:01:00 Doctor Unassigned, No [facility] Name Medical Branch HOME HEALTH - OTHER 2023-06-10 05:01:00 Doctor Unassigned, No [facility] [place] Name Medical Branch HOME [facility] - OTHER 2023-05-27 05:01:00 Doctor Unassigned, No [facility] [place] Name Medical Branch HOME HEALTH - OTHER 2023-05-27 05:01:00 Doctor Unassigned, No [facility] [place] Name Medical Branch [facility] - OTHER 2023-05-24 05:01:00 Doctor Unassigned, No [facility] [place] Name Medical Branch HOME HEALTH - OTHER 2023-05-24 05:01:00 Doctor Unassigned, No [facility] [place] Name Medical Branch DISCLOSURE AND CONSENT, 2023-05-22 05:01:00 Doctor Unassigned, N o [facility] MEDICAL AND SURGICAL Name Medical [facility] PROCEDURES DISCLOSURE AND CONSENT, 2023-05-22 05:01:00 Doctor Unassigned, N o [facility] MEDICAL AND SURGICAL Name Medical [facility] PROCEDURES HOME HEALTH - OTHER 2023-05-10 05:01:00 Doctor Unassigned, No [facility] [place] Name Medical Branch HOME HEALTH - OTHER 2023-04-27 05:01:00 Doctor Unassigned, No [facility] Medical Branch CT HEAD WO CONTRAST 2023-04-05 21:15:33 [facility] HOME HEALTH - OTHER 2023-03-29 05:01:00 [facility], [facility]ENEFITS 2023-03-04 18:20:30 Doctor Unassigned, No [facility] POCT-GLUCOSE METER 2023-02-01 11:25:00 Saul Bashireaston [facility] POCT-GLUCOSE METER 2023-02-01 07:34:00 Saul Bashireaston [facility] MAGNESIUM 2023-02-01 05:40:00 [facility] 2023-02-01 05:40:00 [facility] BASIC METABOLIC PANEL 2023-02-01 05:40:00 [facility] CBC W/PLT COUNT & AUTO 2023-02-01 05:40:00 [facility] CBC W/PLT COUNT & AUTO 2023-02-01 05:40:00 [facility] POCT-GLUCOSE METER 2023-01-31 21:25:00 [facility] [place] [place] POCT-GLUCOSE METER 2023-01-31 16:53:00 [facility] SODIUM, RANDOM URINE 2023-01-31 16:04:00 [facility] IV 2023-01-31 12:44:00 [facility] PO[facility]SE METER 2023-01-31 07:19:00 [facility] ECG 12-LEAD 2023-01-31 06:29:49 Unknown, Hl7 [facility] ECG 12-LEAD 2023-01-31 06:29:49 Unknown, Hl7 [facility] ECG 12-LEAD 2023-01-31 06:29:23 Ariel [facility] ECG 12-LEAD 2023-01-31 06:29:23 Unknown, Hl7 [facility] ECG 12-LEAD 2023-01-31 06:29:23 Unknown, Hl7 [facility] MAGNESIUM 2023-01-31 03:58:00 [facility] 2023-01-31 03:58:00 [facility] BASIC METABOLIC PANEL 2023-01-31 03:58:00 [facility] W/PLT COUNT & AUTO 2023-01-31 03:58:00 [facility] W/PLT COUNT & AUTO 2023-01-31 03:58:00 [facility] URINALYSIS W/ 2023-01-30 21:52:00 Jose Francisco Bashir [facility] POCT-GLUCOSE METER 2023-01-30 21:37:00 [facility] POCT-GLUCOSE METER 2023-01-30 18:17:00 [facility] SARS-COV2/RT-PCR ([facility] & 2023-01-30 18:05:00 MckayJose Francisco figueroa [facility] REF LABS) [place] POCT-GLUCOSE METER 2023-01-30 12:38:00 Jose Francisco [facility]ir [facility] POCT-GLUCOSE METER 2023-01-30 07:11:00 [facility] MAGNESIUM 2023-01-30 05:31:00 [facility] PHOSPHORUS 2023-01-30 05:31:00 [facility] BASIC METABOLIC PANEL 2023-01-30 05:31:00 [facility] CBC W/PLT COUNT & AUTO 2023-01-30 05:31:00 [facility] BLOOD GAS, VENOUS 2023-01-30 05:31:00 [facility] CBC W/PLT COUNT & AUTO 2023-01-30 05:31:00 [facility] POCT-GLUCOSE METER 2023-01-29 21:07:00 [facility] POCT-GLUCOSE METER 2023-01-29 17:44:00 [facility] URINE PROTEIN 2023-01-29 15:00:00 [facility] ELECTROPHORESIS, 24 HOUR [facility] BLOOD GAS, VENOUS 2023-01-29 12:05:00 [facility] NM MYOCARDIAL PERFUSION 2023-01-29 11:44:00 [facility] PET/CT (REST & STRESS) Center TREADMILL 2023-01-29 11:19:19 Unknown, Hl7 Doctor [facility] TOLERANCE(NON-NUCLEAR Center TREADMILL) ECG 12-LEAD 2023-01-29 11:13:53 Ariel [facility] ECG 12-LEAD 2023-01-29 11:13:53 Unknown, Hl7 [facility] ECG 12-LEAD 2023-01-29 11:13:53 Unknown, Hl7 [facility] POCT-GLUCOSE METER 2023-01-29 08:05:00 [facility] MAGNESIUM 2023-01-29 05:50:00 Ariel [facility] PHOSPHORUS 2023-01-29 05:50:00 Annaeric [facility] BASIC METABOLIC PANEL 2023-01-29 05:50:00 [facility] PROTEIN ELECTROPHORESIS, 2023-01-28 15:32:00 [facility] KAPPA / LAMBDA LIGHT 2023-01-28 15:32:00 [facility] CHAINS, SERUM [facility] ANTI-NUCLEAR ANTIBODY 2023-01-28 15:32:00 [facility] (KASSI) [facility] DOUBLE-STRANDED DNA 2023-01-28 15:32:00 [facility] (DSDNA) ANTIBODY [facility] COMPLEMENT COMPONENT C4 2023-01-28 15:32:00 [facility] ANTI-NEUTROPHIL 2023-01-28 15:32:00 [facility] CYTOPLASMIC AB (ANCA) [facility] SERUM IMMUNOTYPING 2023-01-28 15:32:00 [facility] POCT-GLUCOSE METER 2023-01-28 12:48:00 [facility] POCT-GLUCOSE METER 2023-01-28 08:56:00 [facility] MAGNESIUM 2023-01-28 04:37:00 [facility] PHOSPHORUS 2023-01-28 04:37:00 [facility] BASIC METABOLIC PANEL 2023-01-28 04:37:00 [facility] CBC W/PLT COUNT & AUTO 2023-01-28 04:37:00 [facility] CBC W/PLT COUNT & AUTO 2023-01-28 04:37:00 [facility] POCT-GLUCOSE METER 2023-01-27 20:38:00 [facility] POCT-GLUCOSE METER 2023-01-27 17:42:00 [facility] URIC ACID 2023-01-27 17:23:00 Shala [facility] 2D ECHO W/ DOPPLER 2023-01-27 14:35:03 Jordan Lynn [facility] (CW/PW/COLOR) [place] ECG 12-LEAD 2023-01-27 14:09:00 [facility] POCT-GLUCOSE METER 2023-01-27 11:30:00 [facility] POCT-GLUCOSE METER 2023-01-27 07:28:00 Johnny [facility] MAGNESIUM 2023-01-27 02:43:00 Hottmeric [facility] PHOSPHORUS 2023-01-27 02:43:00 [facility] BASIC METABOLIC PANEL 2023-01-27 02:43:00 [facility] POCT-GLUCOSE METER 2023-01-26 22:15:00 Ari, [facility] POCT-GLUCOSE METER 2023-01-26 16:13:00 [facility], [facility] POCT-GLUCOSE METER 2023-01-26 12:19:00 [facility], [facility] POCT-GLUCOSE METER 2023-01-26 07:32:00 [facility] MAGNESIUM 2023-01-26 04:07:00 Hotcory [facility] PHOSPHORUS 2023-01-26 04:07:00 Hotcory [facility] CBC W/PLT COUNT & AUTO 2023-01-26 04:07:[address] [facility] BASIC METABOLIC PANEL 2023-01-26 04:07:00 [facility] CBC W/PLT COUNT & AUTO 2023-01-26 04:07:00 [facility] WITHOUT IV 2023-01-25 23:15:00 [facility] POCT-GLUCOSE METER 2023-01-25 21:37:00 [facility] URINALYSIS W/ 2023-01-25 17:50:00 [facility] PROTEIN, RANDOM URINE 2023-01-25 17:50:00 [facility] CREATININE, RANDOM URINE 2023-01-25 17:50:00 [facility] UREA NITROGEN, RANDOM 2023-01-25 17:50:00 Devalaraju, [facility] URINE [facility] SODIUM, RANDOM URINE 2023-01-25 17:50:00 [facility] POTASSIUM, RANDOM URINE 2023-01-25 17:50:00 [facility] CHLORIDE, RANDOM URINE 2023-01-25 17:50:00 Mili [facility] POCT-GLUCOSE METER 2023-01-25 15:42:00 Bruno Turnerholger [facility] POCT-GLUCOSE METER 2023-01-25 12:20:00 Yony Son[facility] POCT-GLUCOSE METER 2023-01-25 07:44:00 Yony Soin [facility] POCT-GLUCOSE METER 2023-01-25 06:27:00 Yony Son[facility] COMPREHENSIVE METABOLIC 2023-01-25 05:53:00 Rafael George [facility] MAGNESIUM 2023-01-25 05:53:00 Ariel [facility] PHOSPHORUS 2023-01-25 05:53:00 Ariel [facility] ECG 12-LEAD 2023-01-25 05:24:27 Ariel [facility] ECG 12-LEAD 2023-01-25 05:24:27 Unknown, 7 [facility] ECG 12-LEAD 2023-01-25 05:24:27 Unknown, 7 [facility] ECG 12-LEAD 2023-01-25 05:23:52 Unknown, 7 [facility] ECG 12-LEAD 2023-01-25 05:23:52 Unknown, 7 [facility] POCT-GLUCOSE METER 2023-01-25 00:03:00 Yony Son[facility] BASIC METABOLIC PANEL 2023-01-24 21:22:00 Ariel [facility] HIGH SENSITIVITY 2023-01-24 17:04:[address] [facility] TROPONIN I Center POCT-GLUCOSE METER 2023-01-24 15:46:00 Yony Son[facility] ECG 12-LEAD 2023-01-24 14:05:10 Unknown, 7 [facility] ECG 12-LEAD 2023-01-24 14:05:10 Unknown, 7 [facility] ECG 12-LEAD 2023-01-24 14:02:44 Hoteric [facility] ECG 12-LEAD 2023-01-24 14:02:44 Unknown, 7 [facility] ECG 12-LEAD 2023-01-24 14:02:44 Unknown, [address] HIGH SENSITIVITY 2023-01-24 13:14:00 [facility] TROPONIN I [place] IRON, TIBC, % SAT. 2023-01-24 13:14:00 [facility] (WITHOUT FERRITIN) [place] FERRITIN 2023-01-24 13:14:00 [facility] POCT-GLUCOSE METER 2023-01-24 10:52:00 Yony Soni [facility] HIGH SENSITIVITY 2023-01-24 06:28:00 [facility] TROPONIN I Center ECG 12-LEAD 2023-01-24 05:19:02 [facility] ECG 12-LEAD 2023-01-24 05:19:02 Unknown, 7 [facility] ECG 12-LEAD 2023-01-24 05:19:02 Unknown, 7 [facility] COMPREHENSIVE METABOLIC 2023-01-24 02:49:00 Ariel [facility] MAGNESIUM 2023-01-24 02:49:00 Ariel [facility] PHOSPHORUS 2023-01-24 02:49:00 [facility] CBC W/PLT COUNT & AUTO 2023-01-24 02:49:00 HottmanRafael [facility] DIFFERENTIAL [facility] CBC W/PLT COUNT & AUTO 2023-01-24 02:49:00 Ariel [facility] DIFFERENTIAL [facility] XR ABDOMEN/KUB 1 VIEW 2023-01-24 01:38:00 TiffanieericRafael [facility] PORTABLE [facility] HIGH SENSITIVITY 2023-01-24 00:10:00 [facility] TROPONIN I [place] POCT-GLUCOSE METER 2023-01-23 23:26:00 Yony Soni [facility] ECG 12-LEAD 2023-01-23 23:04:05 Unknown, 7 [facility] ECG 12-LEAD 2023-01-23 23:04:05 Unknown, 7 [facility] ECG 12-LEAD 2023-01-23 23:02:55 Unknown, 7 [facility] ECG 12-LEAD 2023-01-23 23:02:55 Unknown, 7 [facility] ECG 12-LEAD 2023-01-23 23:02:55 AnnacoryRafael [facility] ECG 12-LEAD 2023-01-23 22:50:24 Unknown, 7 [facility] ECG 12-LEAD 2023-01-23 22:50:24 Unknown, 7 [facility] ECG 12-LEAD 2023-01-23 22:49:43 Unknown, 7 [facility] ECG 12-LEAD 2023-01-23 22:49:43 Unknown, 7 [facility] ECG 12-LEAD 2023-01-23 22:49:43 Unknown, 7 [facility] HIGH SENSITIVITY 2023-01-23 17:53:00 [facility] Center POCT-GLUCOSE METER 2023-01-23 17:47:00 Ynoy Soni [facility] ECG 12-LEAD 2023-01-23 16:53:15 Unknown, 7 [facility] ECG 12-LEAD 2023-01-23 16:53:15 Unknown, Hl7 [facility] ECG 12-LEAD 2023-01-23 16:53:15 Ariel [facility] HIGH SENSITIVITY 2023-01-23 12:57:00 [facility] I [place] ECG 12-LEAD 2023-01-23 12:12:23 Unknown, Hl7 [facility] ECG 12-LEAD 2023-01-23 12:12:23 [facility] ECG 12-LEAD 2023-01-23 12:12:23 Unknown, Hl7 [facility] POCT-GLUCOSE METER 2023-01-23 11:47:00 Yony Soni [facility] CT BRAIN WITHOUT IV 2023-01-23 09:59:00 Ariel [facility] US ABDOMEN COMPLETE 2023-01-23 07:15:00 [facility] US PELVIS LIMITED 2023-01-23 07:15:00 [facility] POCT-GLUCOSE METER 2023-01-23 05:30:00 Yony Soni [facility] HIGH SENSITIVITY 2023-01-23 05:27:00 [facility] I Center LIPASE 2023-01-23 05:27:00 [facility] PROCALCITONIN 2023-01-23 05:27:00 [facility] LACTIC ACID, ARTERIAL 2023-01-23 05:27:00 [facility] XR ABDOMEN/KUB 1 VIEW 2023-01-23 04:26:00 [facility] COMPREHENSIVE METABOLIC 2023-01-23 03:22:00 Ariel [facility] MAGNESIUM 2023-01-23 03:22:00 Ariel [facility] PHOSPHORUS 2023-01-23 03:22:00 Ariel [facility] CBC W/PLT COUNT & AUTO 2023-01-23 03:22:00 Hottmeric, [facility] DIFFERENTIAL [facility] CBC W/PLT COUNT & AUTO 2023-01-23 03:22:00 Hotcory, [facility] DIFFERENTIAL [facility] ECG 12-LEAD 2023-01-23 01:16:20 Unknown, Hl7 [facility] ECG 12-LEAD 2023-01-23 01:16:20 Hottman, [facility] ECG 12-LEAD 2023-01-23 01:16:20 Unknown, Hl7 [facility] HIGH SENSITIVITY 2023-01-23 00:58:00 Charisse Vásquez [facility] TROPONIN [facility] POCT-GLUCOSE METER 2023-01-23 00:57:00 Yony Soni [facility] CT BRAIN WITHOUT IV 2023-01-22 23:12:00 Ariel [facility] CONTRAST [facility] XR CHEST 1 VIEW PORTABLE 2023-01-22 17:42:00 Rafael George [facility] / BEDSIDE [facility] URINALYSIS WITH 2023-01-22 17:39:00 Ariel [facility] MICROSCOPIC IF INDICATED [facility] RAPID DRUG SCREEN, URINE 2023-01-22 17:39:00 Rafael George [facility] URINALYSIS MICROSCOPIC 2023-01-22 17:39:00 Ariel [facility] SARS-COV2/RT-PCR ([facility] & 2023-01-22 17:36:00 Hotcory [facility] REF LABS) [facility] HIGH SENSITIVITY 2023-01-22 17:36:00 Ariel [facility] TROPONIN I [facility] COMPREHENSIVE METABOLIC 2023-01-22 17:36:00 Ariel [facility] PANEL [facility] MAGNESIUM 2023-01-22 17:36:00 Hotcory [facility] PHOSPHORUS 2023-01-22 17:36:00 Hotcory [facility] CBC W/PLT COUNT & AUTO 2023-01-22 17:36:00 Hottman, [facility] PROTHROMBIN TIME/INR 2023-01-22 17:36:00 Hottman, [facility] APTT 2023-01-22 17:36:00 Hottman, [facility] CALCIUM, IONIZED 2023-01-22 17:36:00 Hottman, [facility] HEMOGLOBIN A1C 2023-01-22 17:36:00 Hottman, [facility] TSH/FREE T4 IF INDICATED 2023-01-22 17:36:00 Hottman, [facility] I [facility] VITAMIN B12 2023-01-22 17:36:00 Hottman, [facility] RPR 2023-01-22 17:36:00 [facility] HC LAB HIV-1 AG 2023-01-22 17:36:00 [facility], [facility] W/HIV-1&2 AB [facility] LIPID PANEL 2023-01-22 17:36:00 Hottman, [facility] CBC W/PLT COUNT & AUTO 2023-01-22 17:36:00 [facility], [facility] [place] INSERT 2023-01-22 17:15:07 Dave Gates [facility] CATH,ART,PERCUT,[facility] M ECG 12-LEAD 2023-01-22 16:56:59 Unknown, Hl7 [facility] ECG 12-LEAD 2023-01-22 16:56:59 Hottman, [facility] ECG 12-LEAD 2023-01-22 16:56:59 Unknown, 7 [facility] ECG 12-LEAD 2023-01-22 16:56:33 Unknown, 7 [facility] ECG 12-LEAD 2023-01-22 16:56:33 Unknown, 7 [facility] ECG 12-LEAD 2023-01-22 16:56:07 Unknown, 7 [facility] ECG 12-LEAD 2023-01-22 16:56:07 Rafael George [facility] ECG 12-LEAD 2023-01-22 16:56:07 Unknown, Hl7 [facility] ECG 12-LEAD 2023-01-22 16:53:41 Unknown, Hl7 [facility] ECG 12-LEAD 2023-01-22 16:53:41 Unknown, Hl7 [facility] EKG-SCANNED 2023-01-22 00:00:00 Provider, Radha [facility] XR CHEST 1 VW 2019-10-16 02:40:33 Vee Harry [facility] TROPONIN I 2019-10-16 02:08:00 Vee Harry [facility] BASIC METABOLIC PANEL 2019-10-16 02:08:00 Vee Harry [facility] (NA, K, CL, CO2, Medical Branch GLUCOSE, BUN, CREATININE, CA) CBC WITH DIFFERENTIAL 2019-10-16 02:08:00 Vee Harry [facility] EKG-12 LEAD 2019-10-16 01:56:40 Vee Harry [facility] NOTICE OF PRIVACY 2019-10-16 01:31:00 Doctor Unassigned, No [facility] PRACTICES Name [facility] CONSENT/REFUSAL FOR 2019-10-16 01:30:41 [facility] Name [facility] Plan of Care Planned Activity Planned Date Details Comments Source Future Scheduled 2024-01-[address] [facility] 00:00:00 [facility] Screening (12+) [code = Tobacco Cessation Counseling and Screening (12+)] Future Scheduled 2024-01-[address] [facility] 00:00:00 [facility] r Screening (12+) [code = Tobacco Cessation Counseling and Screening (12+)] Future Scheduled 2023-05-31 Influenza Vaccine (#1) [facility]00 [code = Influenza Medical Ce nter Vaccine (#1)] Future Scheduled 2023-05-31 Influenza Vaccine (#1) [facility] 00:00:00 [code = Influenza Medical Ce nter Vaccine (#1)] Future Scheduled 2022-09-[address] [facility] 00:00:00 (12+) [code = Medical Center DEPRESSION SCREENING (12+)] Future Scheduled 2022-09-30 FALLS RISK SCREENING [facility] 00:00:00 [code = FALLS RISK Medical C enter SCREENING] Future Scheduled 2022-09-[address] [facility] 00:00:00 (12+) [code = Medical Center DEPRESSION SCREENING (12+)] Future Scheduled 2022-09-30 FALLS RISK SCREENING [facility] 00:00:00 [code = FALLS RISK Medical C enter SCREENING] Future Scheduled [address] [facility] 00:00:00 aneurysm screening Medical C enter (procedure) [code = 616551102] Future Scheduled [address] [facility] 00:00:00 aneurysm screening Medical C enter (procedure) [code = 977945056] Future Scheduled 2011-11-[address] [facility] [facility] 00:00:00 WELLNESS (YEAR 2 or Medical Center FIRST YEAR if no IPPE) [code = MEDICARE ANNUAL WELLNESS (YEAR 2 or FIRST YEAR if no IPPE)] Future Scheduled 2011-11-[address] [facility] 00:00:00 WELLNESS (YEAR 2 or Medical Center FIRST YEAR if no IPPE) [code = MEDICARE ANNUAL WELLNESS (YEAR 2 or FIRST YEAR if no IPPE)] Future Scheduled 2007 SHINGLES VACCINES ([address] [facility] 00:00:00 2) [code = SHINGLES Medical Center VACCINES (1 of 2)] Future Scheduled 2007 SHINGLES VACCINES ([address] [facility] 00:00:00 2) [code = SHINGLES Medical Center VACCINES (1 of 2)] Future Scheduled 1976 DTAP/TDAP/TD VACCINES [facility] 00:00:00 (1 - Tdap) [code = Medical C enter DTAP/TDAP/TD VACCINES (1 - Tdap)] Future Scheduled 1976 DTAP/TDAP/TD VACCINES [facility] 00:00:00 (1 - Tdap) [code = Medical C enter DTAP/TDAP/TD VACCINES (1 - Tdap)] Future Scheduled 1975 HEPATITIS C SCREENING [facility] 00:00:00 [code = HEPATITIS C Medical Center SCREENING] Future Scheduled 1975 HEPATITIS C [facility]CRE[facility]ING [facility]:00:00 [code = HEPATITIS C Medical Center SCREENING] Future Scheduled 1963 PNEUMOCOCCAL 65+ YRS ([address] [facility] 00:00:00 - PCV) [code = Medical Cente r PNEUMOCOCCAL 65+ YRS (1 - PCV)] Future Scheduled 1963 PNEUMOCOCCAL 65+ YRS ([address] [facility] 00:00:00 - PCV) [code = Medical Cente r PNEUMOCOCCAL 65+ YRS (1 - PCV)] Future Scheduled 1957 COVID-19 VACCINE (#1) [facility] 00:00:00 [code = COVID-[address] VACCINE (#1)] Future Scheduled 1957 COVID-19 VACCINE (#1) [facility] 00:00:00 [code = COVID-[address] VACCINE (#1)] Future Scheduled 1957 CT Colonography (combo) [facility] 00:00:00 [code = CT Colonography [facility] (combo)] Future Scheduled 1957 Screening for malignant [facility] 00:00:00 neoplasm of colon Medical Ce nter (procedure) [code = 270768184] Future Scheduled 1957 Screening for malignant [facility] 00:00:00 neoplasm of colon Medical Ce nter (procedure) [code = 892222787] Future Scheduled 1957 Screening for malignant [facility] 00:00:00 neoplasm of colon Medical Ce nter (procedure) [code = 064005396] Future Scheduled 1957 Screening for malignant [facility] 00:00:00 neoplasm of colon Medical Ce nter (procedure) [code = 568531061] Future Scheduled 1957 Sigmoidoscopy [code = [facility] Sigmoidoscopy] Medical Cente r Future Scheduled 1957 CT Colonography (combo) [facility] 00:00:00 [code = CT Colonography [facility] (combo)] Future Scheduled 1957 Screening for malignant [facility] 00:00:00 neoplasm of colon Medical Ce nter (procedure) [code = 148645941] Future Scheduled 1957 Screening for malignant [facility] 00:00:00 neoplasm of colon Medical Ce nter (procedure) [code = 832576190] Future Scheduled [address] [facility] malignant [facility] [facility] neoplasm of colon Medical Ce nter (procedure) [code = 328134479] Future Scheduled 1957 Screening for malignant [facility]00 neoplasm of colon Medical Ce nter (procedure) [code = 729716469] Future Scheduled 1955 Sigmoidoscopy [code = [facility] Sigmoidoscopy] Medical Pedro wren Encounters Start End Encounter Admission Attending Care Care Encounter Source Date/Time Date/Time Type Type Clinicians Facility Department ID 2023-08-26 2023-08-26 [facility] [id number] Univers 16:30:00 16:30:00 BILAL ity of [facility] 2023-07-24 2023-07-24 Telephone [facility] 1.2.840.114 1 [id number] Univers 00:00:00 00:00:00 Jasmin CURRY 350.1.13.10 i ty of [place] [id number] Wa dic[address] 2023-07-19 2023-07-19 Orders Doctor CADEN 1.2.840.114 [id number] Univers 00:00:00 00:00:00 Only Unassigned, KETTY 350.1.13.10 ity of [place] [facility] 4.2.7.2.686 [place] as [id number] [address] 2023-07-18 2023-07-18 Telephone [facility] 1.2.840.114 1 [id number] Univers 00:00:00 00:00:00 Jasmin CURRY 350.1.13.10 i ty of [place] [phone] Wa dical NAL 044 [facility] 2023-07-10 2023-07-10 Office [facility] 1.2.840.114 [id number] Univers 14:30:00 15:00:00 Visit Keith [facility] 350.1.13.10 it y of [place].2.[place] [id number] [address] OFFICE [facility] 2023-07-10 2023-07-10 [facility] [id number] Univers 14:30:00 14:30:00 [facility] 2023-07-05 [id number] Univers 16:00:00 16:00:00 JASMIN [facility] 2023-07-04 2023-07-04 Outpatient R [facility] 1047 [id number] Univers 14:00:00 14:54:03 JASMIN [facility] 2023-07-04 2023-07-04 Telemedici [facility] 1.2.840.114 [id number] Univers 14:00:00 14:54:03 ne Visit Jasmin CURRY 350.1.13.10 ity of [place].2.[place] 354.2934296 Wa dical NAL [address] [place] [address] 2023-07-04 2023-07-04 Orders Doctor CADEN 1.2.840.114 [id number] Univers 00:00:00 00:00:00 Only Unassigned, KETTY 350.1.13.10 ity of [place] [facility] 4.2.7.2.686 [place] [id number] [address] 2023-07-02 2023-07-02 Telephone [facility] 1.2.335.516 [id number] Univers 00:00:00 00:00:00 [facility] 350.1.13.10 it y of [place] [id number] [address] 2023-07-02 2023-07-02 Telephone [facility] 1.2.823.773 [id number] Univers 00:00:00 00:00:00 [facility] HEALTH 350.1.13.10 it y of [place] 4[place]2.7.2.[place] [id number] [address] 2023-07-01 2023-07-01 Telephone [facility] 1.2.364.601 [id number] Univers 00:00:00 00:00:00 Biltn HEALTH 350.1.13.10 it y of [place] 4[place]2.7.2.[place] [id number] [address] 2023-06-29 2023-06-29 Telephone [facility] 1.2.840.114 1 [id number] Univers 00:00:00 00:00:00 Jasmin CURRY 350.1.13.10 i ty of [place] [id number] [address] 2023-06-28 2023-06-28 Refill [facility] 1.2.840.114 [id number] Univers 00:00:00 00:00:00 Jasmin CURRY 350.1.13.10 i ty of [facility] 4.2.7.2.[place] [id number] [address] 2023-06-26 2023-06-26 Nurse Nurse, [facility] Urology [facility] 1.2.840 .114 [id number] Univers 10:30:00 11:00:00 [facility] 350.1.13.10 ity of [place].2.[place] [id number] [address] 2023-06-26 2023-06-26 [facility] [id number] Univers 10:30:00 10:30:00 BILAL ity [facility] 2023-06-25 2023-06-25 Telephone [facility] 1.2.840.114 1 [id number] Univers 00:00:00 00:00:00 Jasmin CURRY 350.1.13.10 i ty of [facility] 4.2.7.2.686 [place] [facility] [phone] Wa dical NAL [address] BUILDING 2023-06-21 2023-06-22 Outpatient R SHAILESH ELIAS [facility] SUU [id number] Univers 08:42:00 18:55:00 SHAILESH ELIAS ity of [facility] 2023-06-21 2023-06-22 [facility] 1.2.840.114 [id number] Univers 08:42:00 18:55:00 Encounter Stantonmatt Elias [facility] 350.1.13.10 ity of [place] 4[place]2.7.2.686 [place] [facility] [phone] [address] ([facility]) 2023-06-21 2023-06-21 Surgery [facility] 1.2.840.114 [id number] Univers 10:12:00 11:59:00 Bilal SPECIALTY 350.1.13.10 ity of [place] 4.2.7.2.686 [place] AT 523.2350690 Wa rex [facility] [address] [facility] 2023-06-21 2023-06-21 Orders Doctor CADEN 1.2.840.114 [id number] Univers 00:00:00 00:00:00 Only Unassigned, KETTY 350.1.13.10 ity of [place] [facility] 4.2.7.2.686 [place] [id number] [facility] [address] 2023-06-20 2023-06-20 Telephone [facility] 1.2.843.862 [id number] Univers 00:00:00 00:00:00 Bilal HEALTH 350.1.13.10 it y of [place] 4[place]2.7.2.686 [place] BENA [id number] [facility] [address] OFFICE BUILDING 2023-06-20 2023-06-20 Orders Doctor CADEN 1.2.840.114 [id number] Univers 00:00:00 00:00:00 Only Unassigned, KETTY 350.1.13.10 ity of [place] HOSPITAL 4.2.7.2.686 [place] [id number] [address] 2023-06-17 2023-06-17 Telephone [facility] 1.2.840.114 1 [id number] Univers 00:00:00 00:00:00 Jasmin CURRY 350.1.13.10 i ty [facility] 4.2.7.2.[place] [id number] [address] 2023-06-17 2023-06-17 Telephone [facility] 1.2.840.114 1 [id number] Univers 00:00:00 00:00:00 Jasmin CURRY 350.1.13.10 i ty of [place]2.7.2.[place] [id number] [address] 2023-06-12 2023-06-12 Telephone [facility] 1.2.913.247 [id number] Univers 00:00:00 00:00:00 [facility] [employer] 350.1.13.10 it y of [place] 4[place]2.7.2.[place] [id number] [facility] [address] OFFICE BUILDING 2023-06-10 2023-06-10 Orders Doctor CADEN 1.2.840.114 [id number] Univers 00:00:00 00:00:00 Only Unassigned, KETTY 350.1.13.10 ity of [place] [facility]OSPITAL 4.2.7.2.686 [place] [id number] [address] 2023-06-05 2023-06-05 Refill [facility] 1.2.840.114 [id number] Univers 00:00:00 00:00:00 Jasmin CURRY 350.1.13.10 i ty [facility] 4.2.7.2.[place] 587.8175138 [address] 2023-06-05 2023-06-05 Telephone [facility] 1.2.840.114 1 [id number] Univers 00:00:00 00:00:00 Jasmin CURRY 350.1.13.10 i ty of [place] 4.2.7.2.[place] 384.1416191 Wa dical NAL 044 [facility] 2023-06-04 2023-06-04 Telephone [facility] 1.2.840.114 1 [id number] Univers 00:00:00 00:00:00 Jasmin CURRY 350.1.13.10 i ty of [place] 4.2.7.2.[place] [id number] Wa dical NAL [address] [place] [address] 2023-05-24 2023-05-24 [facility] 1.2.070.751 [id number] Univers 00:00:00 00:00:00 Tyesha CURRY 350.1.13.10 ity of [place] 4.2.7.2.[place] [id number] [facility] 059 [facility] 2023-05-24 2023-05-24 Telephone [facility] 1.2.840.114 1 [id number] Univers 00:00:00 00:00:00 Jasmin CURRY 350.1.13.10 i ty of [facility] 4.2.7.2.[place] 618.4094483 Wa dic[address] 2023-05-21 2023-05-21 Outpatient R [facility] [id number] Univers 15:30:00 17:07:28 BILAL ity of [facility] 2023-05-21 2023-05-21 Office [facility] 1.2.840.114 [id number] Univers 15:30:00 17:07:28 Visit [facility] 350.1.13.10 it y of [place] 4[place]2.7.2.[place] [id number] [address] OFFICE BUILDING 2023-05-20 2023-05-20 Telephone [facility] 1.2.840.114 1 [id number] Univers 00:00:00 00:00:00 Jasmin CURRY 350.1.13.10 i ty of [place] 4.2.7.2.[place] 003.0971634 Wa dical NAL 044 [address] BUILDING 2023-05-15 2023-05-15 Telephone [facility] 1.2.840.114 1 [id number] Univers 00:00:00 00:00:00 Jasmin CURRY 350.1.13.10 i ty of [facility] 4.2.7.2.[place] 864.4807105 Wa dical NAL [address] BUILDING 2023-05-10 2023-05-10 Orders Doctor CADEN 1.2.840.114 [id number] Univers 00:00:00 00:00:00 Only Unassigned, KETTY 350.1.13.10 ity of [place] [facility] 4.2.7.2.686 [place] [phone] [facility] [address] 2023-05-08 2023-05-08 [facility] [id number] Univers 15:30:00 15:30:00 KEITH ity of [facility] 2023-05-02 2023-05-02 Telephone [facility] 1.2.847.174 [id number] Univers 00:00:00 00:00:00 [facility] 350.1.13.10 it y of [place]2.[place].2.[place] [id number] [facility] MEDICAL [address] OFFICE BUILDING 2023-05-02 2023-05-02 Telephone [facility] 1.2.848.254 [id number] Univers 00:00:00 00:00:00 [facility] 350.1.13.10 it y of [place] 4.2.7.2.686 [place] [facility] [phone] [facility] PRIMARY & [address] SPECIALTY CARE 2023-05-01 2023-05-01 Telephone [facility] 1.2.840.114 1 [id number] Univers 00:00:00 00:00:00 Jasmin CURRY 350.1.13.10 i ty of [facility] 4.2.7.2.[place] 261.6925092 Wa dical NAL 044 [address] BUILDING 2023-04-27 2023-04-27 Orders Doctor NEGRETE 1.2.840.114 [id number] Univers 00:00:00 00:00:00 Only Unassigned, KETTY 350.1.13.10 ity of [place] [facility] 4.2.7.2.686 [place] [id number] [address] 2023-04-26 2023-04-26 Telephone [facility] 1.2.840.114 1 [id number] Univers 00:00:00 00:00:00 Jasmin POEJESSICA 350.1.13.10 i ty of [place] 4.2.7.2.[place] 708.4526269 Wa dical NAL 044 [facility] 2023-04-24 2023-04-24 [facility]phone [facility] 1.2.840.114 105 [id number] Univers 00:00:00 00:00:00 [facility] 350.1.13.10 ity of [place] 4.2.7.2.686 [place] as KRISTOPHER?BLEA 843.1728727 Wa dical KNEY [address] MEDICAL OFFICE BUILDING 2023-04-11 2023-04-11 Telephone [facility] 1.2.772.900 [id number] Univers 00:00:00 00:00:00 Bilal HEALTH 350.1.13.10 it y of [place].2.[place] [id number] [address] OFFICE BUILDING 2023 2023 Telephone [facility] 1.2.018.132 [id number] Univers 00:00:00 00:00:00 Bilal HEALTH 350.1.13.10 it y of [place]2.7.2.[place] [phone] [place] [address] [address] OFFICE BUILDING 2023 2023 Telephone [facility] 1.2.562.288 [id number] Univers 00:00:00 00:00:00 Bilal HEALTH 350.1.13.10 it y of [place] 4[place]2.7.2.[place] 689.0565496 [place] [address] [address] OFFICE BUILDING 2023 2023 Telephone [facility] 1.2.298.080 [id number] Univers 00:00:00 00:00:00 Bilal HEALTH 350.1.13.10 it y of [place]2.7.2.686 [place] [id number] [address] OFFICE BUILDING 2023-04-09 2023-04-09 Office [facility] 1.2.840.114 [id number] Univers 16:00:00 18:07:50 Visit Biltn HEALTH 350.1.13.10 it y of [place] 4[place]2.7.2.[place] 468.8258549 [address] OFFICE BUILDING 2023-04-09 2023-04-09 Outpatient R [facility] [id number] Univers 16:00:00 18:07:50 BILGALEN ity [facility] 2023-04-08 2023-04-08 Telephone [facility] 1.2.840.114 1 [id number] Univers 00:00:00 00:00:00 Jasmin CURRY 350.1.13.10 i ty of [place] 4[place]2.7.2.[place] 855.0738351 Wa dical NAL 044 [facility] 2023-04-05 2023-04-05 [facility] 1.2.098.369 [id number] Univers 15:58:47 23:59:00 Encounter Sanford CURRY 350.1.13.10 ity of [facility] 4.2.7.2.[place] [id number] [address] 2023-04-05 2023-04-05 Office [facility] 1.2.840.114 [id number] Univers 14:40:00 15:42:58 Visit Jasmin CURRY 350.1.13.10 i ty of [facility] 4.2.7.2.[place] 976.8234074 Wa dical NAL 044 [facility] 2023-04-05 2023-04-05 Outpatient R [facility] 1045 [id number] Univers 14:40:00 15:42:58 JASMIN diaz [facility] 2023-04-05 2023-04-05 Refill [facility] 1.2.840.114 [id number] Univers 00:00:00 00:00:00 Jasmin CURRY 350.1.13.10 i ty of [place].7.2.[place] [id number] [address] 2023-04-04 2023-04-04 ABRIL Bansal [facility] [id number] Univers 14:00:00 14:00:00 ABRIL SMITH itteresita [facility] 2023-04-04 2023-04-04 Refill [facility] 1.2.840.114 [id number] Univers 00:00:00 00:00:00 Denise CURRY 350.1.13.10 i ty of [place].2.[place] [id number] [address] 2023-04-03 2023-04-03 Telephone [facility] 1.2.840.114 1 [id number] Univers 00:00:00 00:00:00 Jasmin CURRY 350.1.13.10 i ty of [place] 4[place]2.7.2.[place] [id number] [address] 2023-04-03 2023-04-03 [facility] 1.2.840.114 104 [id number] Univers 00:00:00 00:00:00 Jasmin CURRY 350.1.13.10 i ty of [place]2.7.2.[place] [id number] [address] 2023-04-03 2023-04-03 Telephone [facility] 1.2.840.114 1 [id number] Univers 00:00:00 00:00:00 Jasmin CURRY 350.1.13.10 i ty of [place] 4[place]2.7.2.[place] [id number] [address] 2023-04-03 2023-04-03 [facility] 1.2.840.114 104 [id number] Univers 00:00:00 00:00:00 Jasmin CURRY 350.1.13.10 i ty of [place] 4[place]2.[place].2.[place] 397.1493493 Wa dical NAL 044 [facility] 2023-03-29 2023-03-29 Orders Doctor CADEN 1.2.840.114 [id number] Univers 00:00:00 00:00:00 Only Unassigned, KETTY 350.1.13.[address] [facility] 4.2.7.2.686 [place] [id number] [address] 2023-03-28 2023-03-28 Telephone [facility] 1.2.840.114 1 [id number] Univers 00:00:00 00:00:00 Jasmin CURRY 350.1.13.10 i ty of [place] 4[place].2.[place] 078.9714456 Wa dical NAL 044 [facility] 2023-03-26 2023-03-26 Outpatient SANFORD SWENSON [facility] [id number] Univers 00:00:00 00:00:00 SANFORD GRAF [facility] 2023-03-22 2023-03-22 [facility] 1.2.840.114 [id number] Univers 00:00:00 00:00:00 Jasmin CURRY 350.1.13.10 i ty of [place].2.[place] 575.8958011 [facility] 231 [facility] 2023-03-19 2023-03-19 Outpatient SANFORD SWENSON [facility] [id number] Univers 00:00:00 00:00:00 SANFORD GRAF [facility] 2023-03-11 2023-03-11 Outpatient Holger JAFFE [facility] [id number] Univers 14:20:00 15:05:10 DENISE [facility] 2023-03-11 2023-03-11 Office [facility] 1.2.8 40.114 [id number] Univers 14:20:00 15:05:10 Visit Denise Jaffe [facility] 350.1.13.10 ity of [facility] 4.2.7.2.686 [place] as KRISTOPHER?BLEA 234.6381292 Wa rex VOGEL 092 [facility] 2023-03-08 2023-03-08 Telephone Mollyfernandez [facility] 1.2.840.114 1 [id number] Univers 00:00:00 00:00:00 Jasmin CURRY 350.1.13.10 i ty of [place].2.[place] 141.1728705 Wa dical NAL 044 [facility] 2023-03-04 2023-03-04 Outpatient R VJ [facility] [id number] Univers 13:00:00 14:18:45 TYESHA diaz o f [facility] 2023-03-04 2023-03-04 Office [facility] 1.2.840.114 [id number] Univers 13:00:00 14:18:45 Visit Tyesha CURRY 350.1.13.10 ity of [place] 4[place]2.7.2.[place] 438.0694349 Wa dical NAL 059 [facility] 2023-03-04 2023-03-04 Orders Doctor CADEN 1.2.840.114 [id number] Univers 00:00:00 00:00:00 Only Unassigned, KETTY 350.1.13.10 ity of [place] [facility] 4.2.7.2.686 [place] as [id number] [address] 2023-03-01 2023-03-01 Administrative Sales Assistant 2, Adc Lab [facility] 1.2.840.114 [id number] Univers 14:45:00 14:45:00 Visit Denise Sousa 350.1.13.10 ity of [facility] 4.2.7.2.[place] 982.6540683 Wa dical NAL 353 [facility] 2023-03-01 2023-03-01 Outpatient R LARS [facility] [id number] Univers 13:00:00 14:09:00 DENISE diaz [facility] 2023-03-01 2023-03-01 Office [facility] 1.2.840.114 [id number] Univers 13:00:00 14:09:00 Visit Denise CURRY 350.1.13.10 i ty of [place]2.7.2.[place] 065.3322060 Wa dical NAL [address] BUILDING 2023-03-01 2023-03-01 Patient Doctor CADEN 1.2.840.114 [id number] Univers 00:00:00 00:00:00 Secure Msg Unassigned, KETTY 350.1.13.10 ity of [place] [facility] 4.2.7.2.686 [place] as [id number] [facility] [address] 2023-03-01 2023-03-01 Patient Doctor CADEN 1.2.840.114 [id number] Univers 00:00:00 00:00:00 Secure Msg Unassigned, KETTY 350.1.13.10 ity of [place] [facility] 4.2.7.2.686 [place] as 255.4537489 [facility] [address] 2023-03-01 2023-03-01 Patient Joe [facility] 1.2.840.114 [id number] Univers 00:00:00 00:00:00 Outreach Peter CURRY 350.1.13.10 ity of [place].2.[place] 390.3585241 Wa dical NAL 0[address] [facility] 2023-01-22 2023-02-01 [facility] [id number] [facility] 14:42:[facility] 15:20:00 Encounter Yony Soni Sahar [facility], [facility] 2023-01-22 2023-02-01 [facility] [id number] [facility] 14:42:[facility] 15:20:00 Encounter Yony Soni Sahar [facility], [facility] 2023-01-22 2023-02-01 [facility] [id number] [facility] 14:42:00 15:20:[address] [facility] 2023-01-22 2023-01-22 Travel [facility] [id number] [facility] 00:00:00 [facility] 2023-01-22 2023-01-22 Travel [facility] [id number] [facility] 00[facility]:00 [facility] 2023-01-22 2023-01-[address] [facility] [id number] 00:00:00 00:00:00 Only [facility] 2023-01-22 2023-01-[address] [facility] [id number] 00:00:00 00:00:00 Only [facility] 2022-09-06 2022-09-06 [facility] 1.2.840.114 [id number] Univers 00:00:00 00:00:00 Jasmin CURRY 350.1.13.10 i ty of [place].2.[place] 323.0499796 [address] 2022-04-19 2022-04-19 [facility] 1.2.840.114 [id number] Univers 00:00:00 00:00:00 Jasmin CURRY 350.1.13.10 i ty of [place].2.[place] [id number] [address] 2022-04-04 2022-04-04 Outpatient R PHILLY OLIVAS [facility] [id number] Univers 15:30:00 15:30:00 PHILLY OLIVAS [facility] 2022-03-28 2022-03-28 Outpatient R PHILLY OLIVAS [facility] [id number] Univers 16:00:00 16:00:00 PHILLY OLIVAS [facility] 2022-03-23 2022-03-23 Refwilliam LeonardDR. [facility] 1.2.840.114 [id number] Univers 00:00:00 00:00:00 Jasmin CURRY 350.1.13.10 i ty of [place].2.[place] 551.1100611 [address] 2022-01-19 2022-01-19 [facility] 1.2.840.114 [id number] Univers 00:00:00 00:00:00 Daria A [place] 350.1.13.10 ity of [place].2.[place] 504.7158549 [address] 2021-08-06 2021-08-06 RefFormerly [facility] 1.2.840.114 [id number] Univers 00:00:00 00:00:00 Daria Martha [place] 350.1.13.10 ity of [place].2.[place] 342.4263667 [address] 2021-07-20 2021-07-20 [facility] 1.2.840.114 [id number] Univers 00:00:00 00:00:00 Jasmin Curry 350.1.13.10 i ty of [place] [id number] [address] 2021-06-15 2021-06-15 Outpatient R [facility] [id number] Univers 15:40:00 15:40:00 JASMIN ity of [facility] 2021-04-25 2021-04-25 Telephone [facility] 1.2.840.114 [id number] Univers 00:00:00 00:00:00 Daria [place] 350.1.13.10 [place] [id number] [address] 2021-04-24 2021-04-24 [facility] 1.2.840.114 [id number] Univers 00:00:00 00:00:00 Jasmin Curry 350.1.13.10 [place] [phone] Wa dical nal 044 [facility] 2021-04-18 2021-04-18 Refill Lilly, COM[facility] 1.2.840.114 [id number] Univers 00:00:00 00:00:00 Daria [place] 350.1.13.10 [place] [phone] [place] dical nal 231 [facility] 2021-04-18 2021-04-18 Refill Lilly, [facility] 1.2.840.114 [id number] Univers 00:00:00 00:00:00 Daria A [place] 350.1.13.10 [place] [phone] Wa dical nal 231 [facility] 2021-04-14 2021-04-14 Refill Lilly, [facility] 1.2.840.114 [id number] Univers 00:00:00 00:00:00 Daria Curry 350.1.13.10 [place] [phone] Wa dical nal 231 [facility] 2021-04-14 2021-04-14 Refill Lilly, [facility] 1.2.840.114 [id number] Univers 00:00:00 00:00:00 Daria Curry 350.1.13.10 [place] [phone] Wa dical nal 231 [facility] 2021-04-05 2021-04-05 Refill Lee, [facility] 1.2.840.114 [id number] Univers 00:00:00 00:00:00 [place] [facility] 350.1.13.10 it[place] [id number] [address] 2021-03-24 2021-03-24 Refill Rosa, [facility] 1.2.840.114 [id number] Univers 00:00:00 00:00:00 Valdez [facility] 350.1.13.10 [place] [phone] [address] 2021-03-18 2021-03-18 [facility] 1.2.840.114 [id number] Univers 00:00:00 00:00:00 Daria [place] 350.1.13.10 [place] [phone] [facility] 231 [facility] 2021-03-18 2021-03-18 [facility] 1.2.840.114 [id number] Univers 00:00:00 00:00:00 Jasmin [place] 350.1.13.10 [place] [phone] [facility] 044 [facility] 2021-03-15 2021-03-15 Telemedici [facility] 1.2.840.114 [id number] Univers 11:56:16 11:56:30 ne Visit Jasmin [place] 350.1.13.10 [place] [phone] [facility] 044 [facility] 2021-03-15 2021-03-15 Outpatient R AISHA [facility] [id number] Univers 08:15:00 08:15:00 JASMIN diaz [facility] 2021-03-14 2021-03-14 [facility] LeonardDR. DAN C. [facility] 1.2.840.114 [id number] Univers 00:00:00 00:00:00 Jasmin Curry 350.1.13.10 [place] [phone] [address] 2021-02-22 2021-02-22 Outpatient R AISHA [facility] [id number] Univers 16:00:00 16:00:00 JASMIN diaz [facility] 2021-02-21 2021-02-21 [facility] [id number] Univers 15:00:00 15:00:00 JASMIN diaz of [facility] 2021-02-14 2021-02-14 [facility]AN [facility] 1.2.840.114 [id number] Univers 00:00:00 00:00:00 Jasmin Curry 350.1.13.10 [place] [phone] [address] 2021-01-18 2021-01-18 [facility] AishaDR[facility] DAN C[facility] 1.2.840.114 [id number] Univers 00:00:00 00:00:00 Jasmin Curry 350.1.13.10 [place] [phone] [facility] 044 [facility] 2020-12-08 2020-12-08 [facility] MaxxDR[facility] DAN C[facility] 1.2.840.114 [id number] Univers 00:00:00 00:00:00 Daria Curry 350.1.13.10 [place] [phone] [facility] 231 [facility] 2020-12-06 2020-12-06 Patient Jose DavidDR. DAN [facility] 1.2.840.114 [id number] Univers 00:00:00 00:00:00 Outreach Jayme [facility] 350.1.13.10 i ty of [facility] [place] [phone] [facility] [address] 2020-12-03 2020-12-03 [facility] MaxxDR[facility] DAN C[facility] 1.2.840.114 [id number] Univers 00:00:00 00:00:00 Daria Curry 350.1.13.10 [place] [phone] [facility] 231 [facility] 2020-10-25 2020-10-25 Outpatient R [facility] [id number] Univers 14:00:00 [facility]14 2020-10-14 Outpatient R [facility] [id number] Univers 16:00:00 [facility]:00[facility] 2020-10-13 2020-10-13 [facility] [id number] Univers 14:20:00 14:20:00 PETER [facility] 2020-10-06 2020-10-06 Outpatient R [facility] [id number] Univers 16:00:00 [facility]:00[facility] 2020-09-15 2020-09-16 [facility] 1.2.840.114 [id number] Univers 08:09:15 15:12:43 ne Visit Daria Curry 350.1.13.10 [place] [phone] [facility] 231 [facility] 2020-09-15 2020-09-15 [facility] [id number] Univers 16:40:00 16:40:00 DARIA [facility] 2020-09-15 2020-09-15 [facility] 1.2.840.114 [id number] Univers 00:00:00 00:00:00 Jasmin Curry 350.1.13.10 [place] [phone] [facility] 044 [facility] 2020-09-11 2020-09-11 [facility] [employer] 1.2.840.114 [id number] Univers 00:00:00 00:00:00 Jasmin Curry 350.1.13.10 [place] [phone] [address] 2020-09-05 2020-09-05 [facility] 1.2.840.114 [id number] Univers 00:00:00 00:00:00 Jasmin Curry 350.1.13.10 [place] [phone] [facility] 044 [facility] 2020-08-18 2020-08-18 Refill [facility] 1.2.840.114 [id number] Univers 00:00:00 00:00:00 Daria Curry 350.1.13.10 [place] [phone] [facility] 231 [facility] 2020-08-09 2020-08-09 Refill [facility] 1.2.840.114 [id number] Univers 00:00:00 00:00:00 Jasmin Curry 350.1.13.10 i ty of [place] [address].[place] [phone] [address] 2020-07-14 2020-07-14 [facility] [id number] Univers 10:40:00 10:40:00 JASMIN [facility] 2020-07-07 2020-07-07 [facility] [id number] Univers 15:00:00 15:00:00 JASMIN [facility] 2020-07-06 2020-07-06 Telephone [facility] 1.2.840.114 [id number] Univers 00:00:00 00:00:00 Jasmin Curry 350.1.13.10 i ty [place] [address]..[place] [phone] [address] 2020-07-02 2020-07-02 [facility] 1.2.840.114 [id number] Univers 00:00:00 00:00:00 Jasmin Curry 350.1.13.10 [place] [phone] [address] 2020-06-29 2020-06-29 [facility] AishaDR[facility] DAN [facility] 1.2.840.114 [id number] Univers 00:00:00 00:00:00 Jasmin Curry 350.1.13.10 [place] [phone] [place] dictn nal 044 [facility] 2020-05-05 2020-05-05 [facility] [facility] [employer] 1.2.840.114 [id number] Univers 00:00:00 00:00:00 Jasmin Curry 350.1.13.10 [place] [phone] [address] 2020-02-19 2020-02-19 [facility] 1.2.840.114 [id number] [facility] 00:00:00 00:00:00 Jasmin Curry 350.1.13.10 [place] [phone] [address] 2019-10-15 2019-10-15 Emergency [facility] 1.2.589.980 [id number] [facility] 19:52:19 22:54:00 Vee Curry 350.1.13.10 [place] [phone] [address] 2019-05-21 2019-05-21 [facility] 1.2.840.114 [id number] Univers 00:00:00 00:00:00 Smitha Curry 350.1.13.10 [place] [phone] [facility] 059 [facility] 2019-05-08 2019-05-08 Refwilliam LomasDR. DAN C. [facility] 1.2.840.114 [id number] Univers 00:00:00 00:00:00 Smitha Curry 350.1.13.10 [place] [phone] [place] 143579 [facility] 2019-05-06 2019-05-06 Refwilliam LomasDR. DAN C. [facility] 1.2.840.114 [id number] Univers 00:00:00 00:00:00 Sendil Herminia [place] 350.1.13.10 [place] [phone] [place] [address]79 [facility] 2019-05-04 2019-05-04 Jane Lomas [facility] 1.2.840.114 [id number] Univers 00:00:00 00:00:00 Sendil Herminia Curry 350.1.13.10 [place] [phone] [place] 143579 [facility] Results Test Description Test Time Test Comments Results Result Comments Source BLADDER SCAN PVR 2023-07-10 19:46:00 Test Item Value Reference Range Interpretation Comme nts PVR (URINE VOLUME) (test code = 5193) 139 ml 0-100 A Lab Interpretation (test code = 64362-9) [facility]normal [facility] [id number] 19:46:00 Test Item Value Reference Range Interpretation Comments PVR (URINE VOLUME) (test code = 139 ml 0-100 A 5193) Lab Interpretation (test code = Abnormal 82222-7) [facility] [id number] 19:46:00 Test Item Value Reference Range Interpretation Comments PVR (URINE VOLUME) (test code = 139 ml 0-100 A 5193) Lab Interpretation (test code = Abnormal 58933-7) [facility] [id number] 19:46:00 Test Item Value Reference Range Interpretation Comments PVR (URINE VOLUME) (test code = 139 ml 0-100 A 5193) Lab Interpretation (test code = Abnormal 42119-0) [facility] [id number] 16:23:37 Test Item Value Reference Range Interpretation Comments URINE CULTURE (test No aerobic growth (< code = 630-4) 1000 CFU/mL) [facility] [id number] 16:23:37 Test Item Value Reference Range Interpretation Comments URINE CULTURE (test No aerobic growth (< code = 630-4) 1000 CFU/mL) [facility] CenterURINALYSIS2023-09-22 19:43:54 Test Item Value Reference Range Interpretation Comments APPEARANCE (test code = Hazy Clear A 7505576075) COLOR (test code = Red Yellow A 5797791889) PH (test code = 5.0 4.8-8.0 7851650556) SP GRAVITY (test code = 1.004 1.003-1.030 5596765310) GLU U QUAL (test code = Normal Normal 0060153656) BLOOD (test code = 2+ Negative A 8703714307) KETONES (test code = Negative Negative 9315581339) PROTEIN (test code = Negative Negative 2887-8) UROBILIN (test code = Normal Normal 8846598523) BILIRUBIN (test code = Negative Negative 5462693422) NITRITE (test code = Negative Negative 8756446779) LEUK OBDULIA (test code = 25/uL Negative A 9819059538) RBC/HPF (test code = See_Comment H [Autom ated message] 1399267321) The system [employer] generated this result transmitted ref erence range: 0 - 3 HP F. The reference range was not used to int erpret this result as normal/abnormal . WBC/HPF (test code = 9 See_Comment H [Autom ated message] 3501564832) The system [employer] generated this result transmitted ref erence range: 0 - 5 HP F. The reference range was not used to int erpret this result as normal/abnormal . BACTERIA (test code = Few Negative A 8213541374) AMORPHOUS (test code = Rare Rare HPF 1693355127) SQ EPITH (test code = See_Comment [Auto mated message] 1741550695) The system [employer] generated this result transmitted ref erence range: <=2 HPF. The reference range was not used to int erpret this result as normal/abnormal . Lab Interpretation (test Abnormal code = 20388-6) [facility] [id number] 19:43:54 Test Item Value Reference Range Interpretation Comments APPEARANCE (test code = Hazy Clear A 6299524344) COLOR (test code = Red Yellow A 0516425400) PH (test code = 5.0 4.8-8.0 7663732330) SP GRAVITY (test code = 1.004 1.003-1.030 2337188246) GLU U QUAL (test code = Normal Normal 8127536089) BLOOD (test code = 2+ Negative A 4697135498) KETONES (test code = Negative Negative 8226741707) PROTEIN (test code = Negative Negative 2887-8) UROBILIN (test code = Normal Normal 4271794481) BILIRUBIN (test code = Negative Negative 2039213075) NITRITE (test code = Negative Negative 1081595332) LEUK OBDULIA (test code = 25/uL Negative A 6515517352) RBC/HPF (test code = See_Comment H [Autom ated message] 3249148454) The system [employer] generated this result transmitted ref erence range: 0 - 3 HP F. The reference range was not used to int erpret this result as normal/abnormal . WBC/HPF (test code = 9 See_Comment H [Autom ated message] 6752914956) The system [employer] generated this result transmitted ref erence range: 0 - 5 HP F. The reference range was not used to int erpret this result as normal/abnormal . BACTERIA (test code = Few Negative A 7135928427) AMORPHOUS (test code = Rare Rare HPF 8148068055) SQ EPITH (test code = See_Comment [Auto mated message] 7827898656) The system [employer] generated this result transmitted ref erence range: <=2 HPF. The reference range was not used to int erpret this result as normal/abnormal . Lab Interpretation (test Abnormal code = 02199-5) [facility] CenterU[facility] Protein Electrophoresis, 24 hour 2023-02-14 14:38:17Protein, 24hr Urine02/14/2023 2:38 PM [facility] Urine02/14/2023 2:38 PM [facility]Albumin, 24hr Urine02/14/2023 2:38 PM [facility], [facility]hr Urine02/14/2023 2:38 PM [facility]UPEP, ID02/14/2023 2:38 PM [facility]USProtein, Urine02/14/2023 2:38 PM [facility]USCHI [facility] Protein Electrophoresis, 24 hour 2023-02-14 14:38:17Protein, 24hr Urine02/14/2023 2:38 PM [facility]ENTERVolume, Urine02/14/2023 2:38 PM [facility]USAlbumin, 24hr Urine02/14/2023 2:38 PM [facility]ENTERGlobulin, 24hr Urine02/14/2023 2:38 PM [facility]USUPEP, ID02/14/2023 2:38 PM [facility]HENDR[facility] CENTERProtein, Urine02/14/2023 2:38 PM [facility] [id number] 11:45:03 Test Item Value Reference Range Interpretation Comments POC-Glucose Meter (test 110 mg/dL 70-110 : TE STED AT [facility] code = 1538) [address] [place] [address], 770 30: Web Marketing Intern/Techni mata ID = [id number] for Umeh, Akumbu Lab Interpretation (test Normal code = 63155-3) [facility] [id number] 11:45:03 Test Item Value Reference Range Interpretation Comments POC-Glucose Meter (test 110 mg/dL 70-110 : TE STED AT [facility] code = 1538) [address] [place] [address], 770 30: Web Marketing Intern/Techni mata ID = [id number] for Umeh, Akumbu Lab Interpretation (test Normal code = 65660-2) [facility] [id number] 11:45:03 Test Item Value Reference Range Interpretation Comments POC-GLUCOSE METER 110 mg/dL 70-110 : TESTED A T [facility] 6720 (BEAKER) (test code = [facility], 1538) [address]: Web Marketing Intern/Techni mata ID = [id number] for Um eh, Akumbu POCT-GLUCOSE [id number] 07:49:35 Test Item Value Reference Range Interpretation Comments POC-GLUCOSE METER 92 mg/dL 70-110 : TESTED A T [facility] 6720 (BEAKER) (test code = [place], 1538) [address]: Web Marketing Intern/Techni mata ID = [id number] for Samara Woods BASIC METABOLIC [id number] 07:12:47 Test Item Value Reference Range Interpretation Comments SODIUM (BEAKER) 139 meq/L 136-145 (test code = 381) POTASSIUM 4.0 meq/L 3.5-5.1 (BEAKER) (test code = 379) CHLORIDE (BEAKER) 103 meq/L 98-107 (test code = 382) CO2 (BEAKER) 24 meq/L 22-29 (test code = 355) BLOOD UREA 80 mg/dL 7-21 H NITROGEN (BEAKER) (test code = 354) CREATININE 3.81 mg/dL 0.57-1.25 H (BEAKER) (test code = 358) GLUCOSE RANDOM 86 mg/dL 70-105 (BEAKER) (test code = 652) CALCIUM (BEAKER) 9.6 mg/dL 8.4-10.2 (test code = 697) EGFR (BEAKER) 17 Interpretatio n of eGFR (test code = mL/min/1.73 values Stage De scription 1092) sq m Result G1 Sarina l or high >=90 G2 Mildly decreased 60-89 G3a Mildl y to moderately 45-5 9 G3b Moderately to s everely 30-44 G4 Severl y decreased 15-29 G5 Kidney failure <15Reported eGF R is based on the CKD-EPI 1 equation that d oes not use a race coefficientEsti mated GFR is not as accur ate as Creatinine Brenda baig in predicting glom erular filtration rate . Estimated GFR is not appl icable for dialysis patien ts Web Marketing Intern ID - [id number] 07:08:53 Test Item Value Reference Range Interpretation Comments PHOSPHORUS (BEAKER) (test code = 4.5 mg/dL 2.3-4.7 604) Web Marketing Intern ID - [id number] 07:08:52 Test Item Value Reference Range Interpretation Comments MAGNESIUM (BEAKER) (test code = 2.5 mg/dL 1.6-2.6 627) Web Marketing Intern ID - MMCBC W/PLT COUNT & AUTO [id number] 06:47:30 Test Item Value Reference Range Interpretation Comments WHITE BLOOD CELL COUNT 10.9 K/ L 3.5-10.5 H (BEAKER) (test code = 775) RED BLOOD CELL COUNT 3.64 M/ L 4.63-6.08 L (BEAKER) (test code = 761) HEMOGLOBIN (BEAKER) 10.7 GM/DL 13.7-17.5 L (test code = 410) HEMATOCRIT (BEAKER) 33.6 % 40.1-51.0 L (test code = 411) MEAN CORPUSCULAR 92 fL 79-92 Discordant from VOLUME (BEAKER) (test previo us results. code = 753) Clinical correl ation suggested. MEAN CORPUSCULAR 29.4 pg 25.7-32.2 HEMOGLOBIN (BEAKER) (test code = 751) MEAN CORPUSCULAR 31.8 GM/DL 32.3-36.5 L HEMOGLOBIN CONC (BEAKER) (test code = 752) RED CELL DISTRIBUTION 15.2 % 11.6-14.4 H WIDTH (BEAKER) (test code = 412) PLATELET COUNT 282 K/CU MM 150-450 (BEAKER) (test code = 756) MEAN PLATELET VOLUME 11.4 fL 9.4-12.4 (BEAKER) (test code = 754) NUCLEATED RED BLOOD 0 /100 WBC 0-0 CELLS (BEAKER) (test code = 413) NEUTROPHILS RELATIVE 70 % PERCENT (BEAKER) (test code = 429) LYMPHOCYTES RELATIVE 20 % PERCENT (BEAKER) (test code = 430) MONOCYTES RELATIVE 8 % PERCENT (BEAKER) (test code = 431) EOSINOPHILS RELATIVE 1 % PERCENT (BEAKER) (test code = 432) BASOPHILS RELATIVE 0 % PERCENT (BEAKER) (test code = 437) NEUTROPHILS ABSOLUTE 7.62 K/ L 1.78-5.38 H COUNT (BEAKER) (test code = 670) LYMPHOCYTES ABSOLUTE 2.23 K/ L 1.32-3.57 COUNT (BEAKER) (test code = 414) MONOCYTES ABSOLUTE 0.90 K/ L 0.30-0.82 H COUNT (BEAKER) (test code = 415) EOSINOPHILS ABSOLUTE 0.08 K/ L 0.04-0.54 COUNT (BEAKER) (test code = 416) BASOPHILS ABSOLUTE 0.03 K/ L 0.01-0.08 COUNT (BEAKER) (test code = 417) IMMATURE 0.70 % 0.00-1.00 GRANULOCYTES-RELATIVE PERCENT ([facility]) (test code = 2801) POCT-GLUCOSE [id number] 21:36:45 Test Item Value Reference Range Interpretation Comments POC-GLUCOSE METER 135 mg/dL 70-110 H : Notified RN/MD: ([facility]) (test code = TESTED AT [facility] 6720 1538) [facility], [address]: Web Marketing Intern/Techni mata ID = [id number] for CECILLE FLOYD ICE POCT-GLUCOSE [id number] 17:05:47 Test Item Value Reference Range Interpretation Comments POC-GLUCOSE METER 185 mg/dL 70-110 H : TESTED A T [facility] 6720 ([facility]) (test code = [facility], 1538) [address]: Web Marketing Intern/Techni mata ID = [id number] for Um eh, Akumbu SERUM [id number] 16:46:58 Test Item Value Reference Range Interpretation Comments IMMUNOGLOBULIN A (IGA) 239 mg/dL 63-484 ([facility]) (test code = 639) IMMUNOGLOBULIN G (IGG) 1028 mg/dL 540-1822 ([facility]) (test code = 427) IMMUNOGLOBULIN M (IGM) 101 mg/dL 22-293 ([facility]) (test code = 638) SERUM IT ID [id number]([facility]) No monoclonal (test code = 3817) proteins detected. [facility]-PATHOLOGIST-"[id number] Kike Hernandez M.D. " ([facility]) (test code = (electonic 3801) signature) Clinical Seat Nailer - SFOperator ID - ADMINOperator ID - ADMINPROTEIN ELECTROPHORESIS, SERUM WITH REFLEX TO [id number] 16:46:43 Test Item Value Reference Range Interpretation Comments ALBUMIN FRACTION 3.3 gm/dL 3.5-5.5 L ([facility]) (test code = 405) ALPHA 1 FRACTION 0.5 gm/dL 0.2-0.4 H ([facility]) (test code = 389) ALPHA 2 FRACTION 1.0 gm/dL 0.4-1.0 ([facility]) (test code = 390) BETA FRACTION 0.9 gm/dL 0.5-1.1 ([facility]) (test code = 392) GAMMA GLOBULIN 1.0 gm/dL 0.7-1.6 FRACTION (BEAKER) (test code = 391) INTERPRETATION-119 Albumin decreased. Alpha (BEAKER) (test code = globulin percentages 2615) increased. This suggests an acute phase response. [id number] Kike Hernandez M.D. (BEAKER) (test code = (electonic signature) 2616) PROTEIN TOTAL SERUM, 6.6 gm/dL 6.0-8.3 SPEP (BEAKER) (test code = 2660) Clinical Seat Nailer - SFOperator ID - BSOperator ID - ADMSodium, random urine 2023-01-31 16:33:39 Test Item Value Reference Range Interpretation Comments Sodium Urine (test 25 meq/L code = 2955-3) MICHEAL (test code = Reference Range: No MICHEAL) NormalsOperator ID - ADMIN [facility] random [id number] 16:33:39 Test Item Value Reference Range Interpretation Comments Sodium Urine (test 25 meq/L code = 2955-3) MICHEAL (test code = Reference Range: No MICHEAL) NormalsOperator ID - ADMIN [facility] CenterODIUM, RANDOM [id number] 16:33:39 Test Item Value Reference Range Interpretation Comments SODIUM URINE (BEAKER) (test code = 25 meq/L 243) Reference Range: No NormalsOperator ID - ADMINCT, BRAIN, WITHOUT CONTRAST 2023-01-31 13:19:00 [facility] : 1955 Sex: MFINAL REPORT CT Head without contrast CLINICAL HISTORY: Neuro deficit, acute, stroke suspected TECHNIQUE: Contiguous axial CT images through the head without contrast. This exam was performed according to the departmental dose optimization program which includes automated exposure control,adjustment of the mA and/or kV according to the patient size, and/or use of an iterative reconstruction technique. COMPARISON: 01/25/2023 FINDINGS: The left posterior capsular parenchymal hemorrhage hasnearly resorbed with some residual surrounding edema. There is periventricular and subcortical whitematter hypodensity which is nonspecific but compatible with chronic microvascular ischemic change. There are atherosclerotic calcifications of the intracranial circulation. There is generalized parenchymal volume loss without hydrocephalus, midline shift, or apparent mass effect. There are no extra-axial fluid collections. The skull is intact. The visualized paranasal sinuses are well- aerated. IMPRESSION: Since 01/25/2023, near complete resorption of the left posterior capsular hemorrhage. Signed: Amy Coleman MDReport Verified Date/Time: 01/31/2023 13:19:47 POCT-GLUCOSE [id number] 07:56:09 Test Item Value Reference Range Interpretation Comments POC-GLUCOSE METER 98 mg/dL 70-110 : TESTED A T [facility] 6720 (BEAKER) (test code = [facility], 1538) [address]: Web Marketing Intern/Techni mata ID = [id number] for [facility] BASIC METABOLIC [id number] 05:07:22 Test Item Value Reference Range Interpretation Comments SODIUM (BEAKER) 136 meq/L 136-145 (test code = 381) POTASSIUM 3.6 meq/L 3.5-5.1 (BEAKER) (test code = 379) CHLORIDE (BEAKER) 102 meq/L 98-107 (test code = 382) CO2 (BEAKER) 22 meq/L 22-29 (test code = 355) BLOOD UREA 84 mg/dL 7-21 H NITROGEN (BEAKER) (test code = 354) CREATININE 3.99 mg/dL 0.57-1.25 H (BEAKER) (test code = 358) GLUCOSE RANDOM 106 mg/dL 70-105 H (BEAKER) (test code = 652) CALCIUM (BEAKER) 9.2 mg/dL 8.4-10.2 (test code = 697) EGFR (BEAKER) 16 Interpretatio n of eGFR (test code = mL/min/1.73 values Stage De scription 1092) sq m Result G1 Sarina l or high >=90 G2 Mildly decreased 60-89 G3a Mildl y to moderately 45-5 9 G3b Moderately to s everely 30-44 G4 Severl y decreased 15-29 G5 Kidney failure <15Reported eGF R is based on the CKD-EPI 2020 equation that d oes not use a race coefficientEsti mated GFR is not as accur ate as Creatinine Brenda jovanni in predicting glom erular filtration rate . Estimated GFR is not appl icable for dialysis patien ts Web Marketing Intern ID - [id number] 04:53:34 Test Item Value Reference Range Interpretation Comments PHOSPHORUS (BEAKER) (test code = 4.7 mg/dL 2.3-4.7 604) Web Marketing Intern ID - [id number] 04:53:33 Test Item Value Reference Range Interpretation Comments MAGNESIUM (BEAKER) (test code = 2.4 mg/dL 1.6-2.6 627) Web Marketing Intern ID - MMCBC W/PLT COUNT & AUTO [id number] 04:26:34 Test Item Value Reference Range Interpretation Comments WHITE BLOOD CELL COUNT 10.6 K/ L 3.5-10.5 H (BEAKER) (test code = 775) RED BLOOD CELL COUNT 3.63 M/ L 4.63-6.08 L (BEAKER) (test code = 761) HEMOGLOBIN (BEAKER) 10.3 GM/DL 13.7-17.5 L (test code = 410) HEMATOCRIT (BEAKER) 32.0 % 40.1-51.0 L (test code = 411) MEAN CORPUSCULAR 88 fL 79-92 Discordant result VOLUME (BEAKER) (test compar ed to previous code = 753) result. Clinica l correlation req uired MEAN CORPUSCULAR 28.4 pg 25.7-32.2 HEMOGLOBIN (BEAKER) (test code = 751) MEAN CORPUSCULAR 32.2 GM/DL 32.3-36.5 L HEMOGLOBIN CONC (BEAKER) (test code = 752) RED CELL DISTRIBUTION 14.9 % 11.6-14.4 H WIDTH (BEAKER) (test code = 412) PLATELET COUNT 284 K/CU MM 150-450 (BEAKER) (test code = 756) MEAN PLATELET VOLUME 11.0 fL 9.4-12.4 (BEAKER) (test code = 754) NUCLEATED RED BLOOD 0 /100 WBC 0-0 CELLS (BEAKER) (test code = 413) NEUTROPHILS RELATIVE 72 % PERCENT (BEAKER) (test code = 429) LYMPHOCYTES RELATIVE 19 % PERCENT (BEAKER) (test code = 430) MONOCYTES RELATIVE 7 % PERCENT (BEAKER) (test code = 431) EOSINOPHILS RELATIVE 1 % PERCENT (BEAKER) (test code = 432) BASOPHILS RELATIVE 0 % PERCENT (BEAKER) (test code = 437) NEUTROPHILS ABSOLUTE 7.62 K/ L 1.78-5.38 H COUNT (BEAKER) (test code = 670) LYMPHOCYTES ABSOLUTE 2.04 K/ L 1.32-3.57 COUNT (BEAKER) (test code = 414) MONOCYTES ABSOLUTE 0.78 K/ L 0.30-0.82 COUNT (BEAKER) (test code = 415) EOSINOPHILS ABSOLUTE 0.09 K/ L 0.04-0.54 COUNT (BEAKER) (test code = 416) BASOPHILS ABSOLUTE 0.03 K/ L 0.01-0.08 COUNT (BEAKER) (test code = 417) IMMATURE 0.70 % 0.00-1.00 GRANULOCYTES-RELATIVE PERCENT (BEAKER) (test code = 2801) Urinalysis w/[id number] 22:36:06 Test Item Value Reference Range Interpretation Comments Color, UA (test code Colorless = 5778-6) Clarity, UA (test Clear code = 5767-9) Specific [place], UA 1.010 1.001-1.035 (test code = 5811-5) pH, UA (test code = 6.5 5.0-8.0 5803-2) Protein, UA (test 50 mg/dL Negative A code = 44685-0) Glucose, UA (test Negative Negative code = 365) Ketones, UA (test Negative Negative code = 2514-8) Bilirubin, UA (test Negative Negative code = 84862-8) Blood, UA (test code Negative Negative = 65265-8) Nitrite, UA (test Negative Negative code = 5802-4) Leukocytes, UA (test Negative Negative code = 5799-2) Urobilinogen, UA 0.2 0.2-1.0 (test code = 78123-0) RBC, UA (test code = 3 See_Comment [Autom ated 37471-7) message] The system which generated this result transmitted reference range : /HPF. The reference range was not used to interpret this result as normal/abnormal . WBC, UA (test code = 1 See_Comment [Autom ated 5821-4) message] The system which generated this result transmitted reference range : /HPF. The reference range was not used to interpret this result as normal/abnormal . Specimen Source (test Urine, Voided code = 2795) MICHEAL (test code = MICHEAL) Web Marketing Intern ID - [auto]Web Marketing Intern ID - tech Lab Interpretation Abnormal (test code = 67937-5) [facility][id number] 22:36:06 Test Item Value Reference Range Interpretation Comments Color, UA (test code Colorless = 5778-6) Clarity, UA (test Clear code = 5767-9) Specific [place], UA 1.010 1.001-1.035 (test code = 5811-5) pH, UA (test code = 6.5 5.0-8.0 5803-2) Protein, UA (test 50 mg/dL Negative A code = 98193-1) Glucose, UA (test Negative Negative code = 365) Ketones, UA (test Negative Negative code = 2514-8) Bilirubin, UA (test Negative Negative code = 82946-1) Blood, UA (test code Negative Negative = 85450-4) Nitrite, UA (test Negative Negative code = 5802-4) Leukocytes, UA (test Negative Negative code = 5799-2) Urobilinogen, UA 0.2 0.2-1.0 (test code = 32960-3) RBC, UA (test code = 3 See_Comment [Autom ated 54547-9) message] The system which generated this result transmitted reference range : /HPF. The reference range was not used to interpret this result as normal/abnormal . WBC, UA (test code = 1 See_Comment [Autom ated 5821-4) message] The system which generated this result transmitted reference range : /HPF. The reference range was not used to interpret this result as normal/abnormal . Specimen Source (test Urine, Voided code = 2795) MICHEAL (test code = MICHEAL) Web Marketing Intern ID - [auto]Web Marketing Intern ID - tech Lab Interpretation Abnormal (test code = 27108-5) [facility] [id number] 22:36:06 Test Item Value Reference Range Interpretation Comments COLOR (BEAKER) (test code = Colorless 470) CLARITY (BEAKER) (test code = Clear 469) SPECIFIC GRAVITY UA (BEAKER) 1.010 1.001-1.035 (test code = 468) PH UA (BEAKER) (test code = 6.5 5.0-8.0 467) PROTEIN UA (BEAKER) (test code 50 mg/dL Negative A = 464) GLUCOSE UA (BEAKER) (test code Negative Negative = 365) KETONES UA (BEAKER) (test code Negative Negative = 371) BILIRUBIN UA (BEAKER) (test Negative Negative code = 462) BLOOD UA (BEAKER) (test code = Negative Negative 461) NITRITE UA (BEAKER) (test code Negative Negative = 465) LEUKOCYTE ESTERASE UA (BEAKER) Negative Negative (test code = 466) UROBILINOGEN UA (BEAKER) (test 0.2 0.2-1.0 code = 463) RBC UA (BEAKER) (test code = 3 /HPF 519) WBC UA (BEAKER) (test code = 1 /HPF 520) SOURCE(BEAKER) (test code = Urine, Voided 8086) Web Marketing Intern ID - [auto]Web Marketing Intern ID - techPOCT-GLUCOSE [id number] 22:05:02 Test Item Value Reference Range Interpretation Comments POC-GLUCOSE METER 122 mg/dL 70-110 H : Notified RN/MD: (LISE) (test code = TESTED AT [facility] 7426 3761) [facility], [address]: Web Marketing Intern/Techni mata ID = [id number] for LINDSEYMARIAN CECILLE ICE SARS-CoV2/RT-PCR (Asymptomatic ONLY)2023-01-30 19:06:20 Test Item Value Reference Interpretation Comments Range SARS-COV2/RT-PCR Negative Negative The SARS-Co V-2 (test code = target nucleic 07195-1) acids are not detected in thi s specimen. Negat rahul results do not preclude SARS-C oV-2 infection and should not be u sed as the sole bas is for patient management decisions. Nega tive results must be combined with clinical observations, patient history , and epidemiolog ical information. A false negative result may occu r if a specimen is improperly collected, transported or handled. This S ARS CoV-2 test is a rapid, real-tashia e RT-PCR test intended for th e qualitative detection of nucleic acid fr om SARS-CoV-2 in a nasopharyngeal swab specimen colle yoli from individual s suspected of COVID-19 by the ir healthcare provider. MICHEAL (test code = This test has been MICHEAL) authorized by FDA under an EUA for use by authorized laboratories. This test is only authorized for the duration of the declaration that circumstances exist justifying the authorization of emergency use of in vitro diagnostic tests for detection and/or diagnosis of COVID-19 under Section 564(b)(1) of the Federal Food, Drug and Cosmetic Act, 21 U.S.C. 360bbb-3(b)(1), unless the authorization is terminated or revoked sooner. Fact Sheet for Healthcare Providers: https://www.[employer]/Documents/Xp ert%20Xpress%20SAR S%20CoV-2/Fact%20S heets/302-3802%20S ARS-COV-2%20HEALTH CARE%20PROVIDERS%2 0FACT%20SHEET.pdf Fact Sheet for Healthcare Patients: https://www.[employer]/Documents/Xp ert%20Xpress%20SAR S%20CoV-2/Fact%20S heets/302-3801%20S ARS-COV-2%20PATIEN T%20FACT%20SHEET.p df Lab Interpretation Normal (test code = 64102-9) [facility]30 19:06:20 Test Item Value Reference Interpretation Comments Range SARS-COV2/RT-PCR Negative Negative The SARS-Co V-2 (test code = target nucleic 45420-5) acids are not detected in thi s specimen. Negat rahul results do not preclude SARS-C oV-2 infection and should not be u sed as the sole bas is for patient management decisions. Nega tive results must be combined with clinical observations, patient history , and epidemiolog ical information. A false negative result may occu r if a specimen is improperly collected, transported or handled. This S ARS CoV-2 test is a rapid, real-tashia e RT-PCR test intended for th e qualitative detection of nucleic acid fr om SARS-CoV-2 in a nasopharyngeal swab specimen colle yoli from individual s suspected of COVID-19 by the ir healthcare provider. MICHEAL (test code = This test has been MICHEAL) authorized by FDA under an EUA for use by authorized laboratories. This test is only authorized for the duration of the declaration that circumstances exist justifying the authorization of emergency use of in vitro diagnostic tests for detection and/or diagnosis of COVID-19 under Section 564(b)(1) of the Federal Food, Drug and Cosmetic Act, 21 U.S.C. 360bbb-3(b)(1), unless the authorization is terminated or revoked sooner. Fact Sheet for Healthcare Providers: https://www.[employer]/Documents/Xp ert%20Xpress%20SAR S%20CoV-2/Fact%20S heets/302-3802%20S ARS-COV-2%20HEALTH CARE%20PROVIDERS%2 0FACT%20SHEET.pdf Fact Sheet for Healthcare Patients: https://www.[employer]/Documents/Xp ert%20Xpress%20SAR S%20CoV-2/Fact%20S heets/302-3801%20S ARS-COV-2%20PATIEN T%20FACT%20SHEET.p df Lab Interpretation Normal (test code = 87574-2) [facility]2023-01-30 19:06:20 Test Item Value Reference Range Interpretation Comments SARS-COV2/RT-PCR Negative Negative The SARS-Co V-2 target (test code = nucleic acids a re not 1756880) detected in thi s specimen. Negative result s do not preclude SARS-C oV-2 infection and s hould not be used as the donta e basis for patient managem ent decisions. Nega tive results must be combine d with clinical observ ations, patient history , and epidemiological information. A false negativ e result may occur if a spec imen is improperly joel ected, transported or handled. This SARS CoV-2 test is a rapid, real-time RT-PC R test intended for th e qualitative detection of nu cleic acid from SARS-CoV-2 in a nasopharyngeal swab specimen collected from individuals suspected of CO VID-19 by their healthcar e provider. This test has been authorized by FDA under an EUA for use by authorized laboratories. This test is only authorized for the duration of the declaration that circumstances exist justifying the authorization of emergency use of in vitro diagnostic tests for detection and/or diagnosis of COVID-19 under Section 564(b)(1) of the Federal Food, Drug and Cosmetic Act, 21 U.S.C. 360bbb-3(b)(1), unless the authorization is terminated or revoked sooner. Fact Sheet for Healthcare Providers: https://www.[employer] m/Documents/Xpert%20Xpress%20SARS%20CoV-2/Fact%20Sheets/302-3802%90GCHQ-DCW-9%20 HEALTHCARE%20PROVIDERS%20FACT%20SHEET.pdf Fact Sheet for Healthcare Patients: https://www.[employer]/Documents/Xpert%20Xp ress%20SARS%20CoV-2/Fact%20Sheets/302-3801%69ACAM-FXF-5%20PATIENT%20FACT%20SHEET .pdfPOCT-GLUCOSE [id number] 18:30:46 Test Item Value Reference Range Interpretation Comments POC-GLUCOSE METER 169 mg/dL 70-110 H : TESTED A T [facility] 6720 (Nephros) (test code = [facility], 153) [address]: Web Marketing Intern/Techni mata ID = [id number] for [facility], [place] POCT-GLUCOSE [id number] 13:04:09 Test Item Value Reference Range Interpretation Comments POC-GLUCOSE METER 132 mg/dL 70-110 H : TESTED A T [facility] 6720 (Nephros) (test code = [facility], 153) [address]: Web Marketing Intern/Techni mata ID = [id number] for eh, [place] BASIC METABOLIC [id number] 08:28:20 Test Item Value Reference Range Interpretation Comments SODIUM (BEAKER) 136 meq/L 136-145 (test code = 381) POTASSIUM 3.7 meq/L 3.5-5.1 (BEAKER) (test code = 379) CHLORIDE (BEAKER) 101 meq/L 98-107 (test code = 382) CO2 (BEAKER) 23 meq/L 22-29 (test code = 355) BLOOD UREA 81 mg/dL 7-21 H NITROGEN (BEAKER) (test code = 354) CREATININE 4.33 mg/dL 0.57-1.25 H (BEAKER) (test code = 358) GLUCOSE RANDOM 110 mg/dL 70-105 H (BEAKER) (test code = 652) CALCIUM (BEAKER) 9.3 mg/dL 8.4-10.2 (test code = 697) EGFR (BEAKER) 15 Interpretatio n of eGFR (test code = mL/min/1.73 values Stage De scription 1092) sq m Result G1 Sarina l or high >=90 G2 Mildly decreased 60-89 G3a Mildl y to moderately 45-5 9 G3b Moderately to s everely 30-44 G4 Severl y decreased 15-29 G5 Kidney failure <15Reported eGF R is based on the CKD-EPI 2020 equation that d oes not use a race coefficientEsti mated GFR is not as accur ate as Creatinine Brenda baig in predicting glom erular filtration rate . Estimated GFR is not appl icable for dialysis patien ts Web Marketing Intern ID - [id number] 07:57:10 Test Item Value Reference Range Interpretation Comments MAGNESIUM (BEAKER) (test code = 2.6 mg/dL 1.6-2.6 627) Web Marketing Intern ID - [id number] 07:57:10 Test Item Value Reference Range Interpretation Comments PHOSPHORUS (BEAKER) (test code = 4.9 mg/dL 2.3-4.7 H 604) Web Marketing Intern ID - ADMINPOCT-GLUCOSE [id number] 07:30:39 Test Item Value Reference Range Interpretation Comments POC-GLUCOSE METER 111 mg/dL 70-110 H : TESTED A T [facility] 6720 (BEAKER) (test code = [facility] [place], 1538) [address]: Web Marketing Intern/Techni mata ID = [id number] for Um eh, [place] CBC W/PLT COUNT & AUTO [id number] 06:12:01 Test Item Value Reference Range Interpretation Comments WHITE BLOOD CELL COUNT (BEAKER) 11.9 K/ L 3.5-10.5 H (test code = 775) RED BLOOD CELL COUNT (BEAKER) 3.53 M/ L 4.63-6.08 L (test code = 761) HEMOGLOBIN (BEAKER) (test code = 10.3 GM/DL 13.7-17.5 L 410) HEMATOCRIT (BEAKER) (test code = 33.0 % 40.1-51.0 L 411) MEAN CORPUSCULAR VOLUME (BEAKER) 94 fL 79-92 H (test code = 753) MEAN CORPUSCULAR HEMOGLOBIN 29.2 pg 25.7-32.2 (BEAKER) (test code = 751) MEAN CORPUSCULAR HEMOGLOBIN CONC 31.2 GM/DL 32.3-36.5 L (BEAKER) (test code = 752) RED CELL DISTRIBUTION WIDTH 14.9 % 11.6-14.4 H (BEAKER) (test code = 412) PLATELET COUNT (BEAKER) (test 308 K/CU MM 150-450 code = 756) MEAN PLATELET VOLUME (BEAKER) 11.0 fL 9.4-12.4 (test code = 754) NUCLEATED RED BLOOD CELLS 0 /100 WBC 0-0 (BEAKER) (test code = 413) NEUTROPHILS RELATIVE PERCENT 74 % (BEAKER) (test code = 429) LYMPHOCYTES RELATIVE PERCENT 17 % (BEAKER) (test code = 430) MONOCYTES RELATIVE PERCENT 7 % (BEAKER) (test code = 431) EOSINOPHILS RELATIVE PERCENT 1 % (BEAKER) (test code = 432) BASOPHILS RELATIVE PERCENT 0 % (BEAKER) (test code = 437) NEUTROPHILS ABSOLUTE COUNT 8.82 K/ L 1.78-5.38 H (BEAKER) (test code = 670) LYMPHOCYTES ABSOLUTE COUNT 1.97 K/ L 1.32-3.57 (BEAKER) (test code = 414) MONOCYTES ABSOLUTE COUNT (BEAKER) 0.83 K/ L 0.30-0.82 H (test code = 415) EOSINOPHILS ABSOLUTE COUNT 0.12 K/ L 0.04-0.54 (BEAKER) (test code = 416) BASOPHILS ABSOLUTE COUNT (BEAKER) 0.04 K/ L 0.01-0.08 (test code = 417) IMMATURE GRANULOCYTES-RELATIVE 0.80 % 0.00-1.00 PERCENT (BEAKER) (test code = 2801) BLOOD GAS, [id number] 05:56:38 Test Item Value Reference Range Interpretation Comments PH VENOUS (BEAKER) (test code = 7.41 7.32-7.42 701) PCO2 VENOUS (BEAKER) (test code = 43 mm Hg 41-51 755) PO2 VENOUS (BEAKER) (test code = 36 mm Hg 25-40 702) O2 SATURATION VENOUS (BEAKER) 69.6 % 40.0-70.0 (test code = 703) HCO3 VENOUS (BEAKER) (test code = 27 mmol/L 21-29 705) BASE EXCESS VENOUS (BEAKER) (test 1.6 mmol/L -2.0-3.0 code = 704) PATIENT TEMPERATURE (BEAKER) (test 37.0 code = 1818) FIO2 (BEAKER) (test code = 1819) 40.0 POCT-GLUCOSE [id number] 23:05:00 Test Item Value Reference Range Interpretation Comments POC-GLUCOSE METER 146 mg/dL 70-110 H : TESTED A T [facility] 6720 (BEAKER) (test code = [facility] [employer] [facility], 1538) [address]: Web Marketing Intern/Techni mata ID = [id number] for Yuridia Robbins POCT-GLUCOSE [id number] 22:49:41 Test Item Value Reference Range Interpretation Comments POC-GLUCOSE METER 157 mg/dL 70-110 H : TESTED A T [facility] 6720 (BEAKER) (test code = [facility] [employer] [facility], 1538) [address]: Web Marketing Intern/Techni mata ID = [id number] for An Agustina orta PET/CT, CARDIAC PERF REST AND [id number] 16:30:00Reason for exam:- >elevated troponin, evaluate for myocardial ischemia [facility] 1955 Sex: MFINAL REPORT PROCEDURE: MYOCARDIAL PERFUSION PET/CT IMAGING (Rest/Stress)CPT CODE: [id number]: Non-ST elevation [place] CARDIOVASCULAR PROFILE:CAD History: NoneSymptoms: NoneRisk Factors: Hypertension, tobacco useBMI: 32.0Medications: Atorvastatin, carvedilol, furosemide, nifedipine STRESS PROTOCOL:Pharmacologic stress was achieved with a 10-second intravenous infusion of regadenoson 0.4mg. The radiopharmaceutical was administered 30 seconds after the start of the regadenoson infusion.IMAGING PROTOCOL:Limited low-dose CT imaging was performed for attenuation correction. 34.6 mCi of Rb-82 chloride was injected intravenously at rest, and gated PET images were obtained. Then, 35.2 mCi of Rb-82 chloride was injected intravenously at peak stress, and gated PET images were obtained. Image quality is good. REST FINDINGS:HR: 70/minBP: 157/74 mmHgPrelim. EKG: Normal sinus rhythm.Perfusion:There is a mild severity perfusion defect of the mid to apical inferior segment(s).Wall Motion: Normal (LVEF 54%).LV Volume: Mildly increased. STRESS FINDINGS:HR: 75/min (48% of MPHR)BP: 131/51 mmHgPrelim. EKG: No ischemic changes.Symptoms: None (treatment not required).Perfusion: There is a mild severity perfusion defect of the mid to apical inferior LV.Wall Motion: Normal (LVEF 51%).LV Volume: Not s ignificantly changed from rest. IMPRESSION:1. Abnormal study.2. Abnormal myocardial perfusion. Thereis a medium size, mild severity, mostly fixed perfusion defect of the mid to apical inferior segments of the LV. 3. Normal resting LVEF, which does not deteriorate with pharmacologic stress.4. Normal ex tracardiac tracer distribution.5. There is no prior study for comparison. Signed: Sarath Adrian MDRephannibal regional hospital Verified Date/Time: 01/29/2023 16:30:27 ANTI- NUCLEAR ANTIBODY (KASSI)2023-01-29 13:31:27 Test Item Value Reference Range Interpretation Comments ANTI-NUCLEAR ANTIBODY (KASSI) (BEAKER) Negative Negative (test code = 418) Test performed by IFA method.Test performed by IFA method.DOUBLE-STRANDED DNA (DSDNA) [id number] 13:29:39 Test Item Value Reference Range Interpretation Comments ANTI-DNA DS (BEAKER) (test code = Negative Negative 1055) BLOOD GAS, [id number] 12:25:53 Test Item Value Reference Range Interpretation Comments PH VENOUS (BEAKER) (test code = 7.47 7.32-7.42 H 701) PCO2 VENOUS (BEAKER) (test code = 35 mm Hg 41-51 L 755) PO2 VENOUS (BEAKER) (test code = 108 mm Hg 25-40 H 702) O2 SATURATION VENOUS (BEAKER) 98.2 % 40.0-70.0 H (test code = 703) HCO3 VENOUS (BEAKER) (test code = 25 mmol/L 21-29 705) BASE EXCESS VENOUS (BEAKER) (test 1.2 mmol/L -2.0-3.0 code = 704) PATIENT TEMPERATURE (BEAKER) (test 37.0 code = 1818) FIO2 (BEAKER) (test code = 1819) 40.0 POCT-GLUCOSE [id number] 08:17:13 Test Item Value Reference Range Interpretation Comments POC-GLUCOSE METER 124 mg/dL 70-110 H : TESTED Martha T [facility] 6720 (BEAKER) (test code = [facility] [place], 1538) [address]: Web Marketing Intern/Techni mata ID = [id number] for Agustina Ricardo BASIC METABOLIC [id number] 06:59:03 Test Item Value Reference Range Interpretation Comments SODIUM (BEAKER) 138 meq/L 136-145 (test code = 381) POTASSIUM 3.8 meq/L 3.5-5.1 Specimen slight ly (BEAKER) (test hemolyzed code = 379) CHLORIDE (BEAKER) 106 meq/L 98-107 (test code = 382) CO2 (BEAKER) 19 meq/L 22-29 L (test code = 355) BLOOD UREA 62 mg/dL 7-21 H NITROGEN (BEAKER) (test code = 354) CREATININE 3.54 mg/dL 0.57-1.25 H Specimen slight ly (BEAKER) (test hemolyzed code = 358) GLUCOSE RANDOM 104 mg/dL 70-105 (BEAKER) (test code = 652) CALCIUM (BEAKER) 8.3 mg/dL 8.4-10.2 L (test code = 697) EGFR (BEAKER) 19 Interpretatio n of eGFR (test code = mL/min/1.73 values Stage De scription 1092) sq m Result G1 Norm al or high >=90 G2 Mildly decreased 60-89 G3a Mildl y to moderately 45-5 9 G3b Moderately to s everely 30-44 G4 Severl y decreased 15-29 G5 Kidney failure <15Reported eGF R is based on the CKD-EPI 2020 equation that d oes not use a race coefficientEsti mated GFR is not as accur ate as Creatinine Brenda jovanni in predicting glom erular filtration rate . Estimated GFR is not appl icable for dialysis patien ts Web Marketing Intern ID - BRIANNE [id number] 06:55:03 Test Item Value Reference Range Interpretation Comments PHOSPHORUS (BEAKER) 5.3 mg/dL 2.3-4.7 H Specimen slightly (test code = 604) hemolyzed Web Marketing Intern ID - BRIANNE [id number] 06:55:02 Test Item Value Reference Range Interpretation Comments MAGNESIUM (BEAKER) 2.2 mg/dL 1.6-2.6 Specimen slightly (test code = 627) hemolyzed Web Marketing Intern ID - BRIANNE WCOMPLEMENT COMPONENT [id number] 16:03:07 Test Item Value Reference Range Interpretation Comments C4 COMPLEMENT (BEAKER) (test code = 31 mg/dL 15-57 394) Web Marketing Intern ID - BSCOMPLEMENT COMPONENT [id number] 16:03:07 Test Item Value Reference Range Interpretation Comments C3 COMPLEMENT (BEAKER) (test code = 145 mg/dL 82-193 393) Web Marketing Intern ID - BSPOCT-GLUCOSE [id number] 12:59:46 Test Item Value Reference Range Interpretation Comments POC-GLUCOSE METER 136 mg/dL 70-110 H : TESTED A T [facility] 6720 (BEAKER) (test code = [facility] [place], 1538) [address]: Web Marketing Intern/Techni mata ID = [id number] for An Agustina orta POCT-GLUCOSE [id number] 09:08:01 Test Item Value Reference Range Interpretation Comments POC-GLUCOSE METER 106 mg/dL 70-110 : TESTED A T [facility] 6720 (BEAKER) (test code = [facility], 1538) [address]: Web Marketing Intern/Techni mata ID = [id number] for An Agustina orta BASIC METABOLIC [id number] 08:02:20 Test Item Value Reference Range Interpretation Comments SODIUM (BEAKER) 137 meq/L 136-145 (test code = 381) POTASSIUM 3.5 meq/L 3.5-5.1 (BEAKER) (test code = 379) CHLORIDE (BEAKER) 102 meq/L 98-107 (test code = 382) CO2 (BEAKER) 24 meq/L 22-29 (test code = 355) BLOOD UREA 72 mg/dL 7-21 H NITROGEN (BEAKER) (test code = 354) CREATININE 4.33 mg/dL 0.57-1.25 H (BEAKER) (test code = 358) GLUCOSE RANDOM 101 mg/dL 70-105 (BEAKER) (test code = 652) CALCIUM (BEAKER) 8.9 mg/dL 8.4-10.2 (test code = 697) EGFR (BEAKER) 15 Interpretatio n of eGFR (test code = mL/min/1.73 values Stage De scription 1092) sq m Result G1 Sarina l or high >=90 G2 Mildly decreased 60-89 G3a Mildl y to moderately 45-5 9 G3b Moderately to s everely 30-44 G4 Severl y decreased 15-29 G5 Kidney failure <15Reported eGF R is based on the CKD-EPI 2021 equation that d oes not use a race coefficientEsti mated GFR is not as accur ate as Creatinine Brenda baig in predicting glom erular filtration rate . Estimated GFR is not appl icable for dialysis patien ts Web Marketing Intern ID - [id number] 07:50:09 Test Item Value Reference Range Interpretation Comments PHOSPHORUS (BEAKER) (test code = 4.7 mg/dL 2.3-4.7 604) Web Marketing Intern ID - [id number] 07:50:08 Test Item Value Reference Range Interpretation Comments MAGNESIUM (BEAKER) (test code = 2.1 mg/dL 1.6-2.6 627) Web Marketing Intern ID - JSCBC W/PLT COUNT & AUTO [id number] 05:11:34 Test Item Value Reference Range Interpretation Comments WHITE BLOOD CELL COUNT (BEAKER) 9.5 K/ L 3.5-10.5 (test code = 775) RED BLOOD CELL COUNT (BEAKER) 3.32 M/ L 4.63-6.08 L (test code = 761) HEMOGLOBIN (BEAKER) (test code = 9.7 GM/DL 13.7-17.5 L 410) HEMATOCRIT (BEAKER) (test code = 30.2 % 40.1-51.0 L 411) MEAN CORPUSCULAR VOLUME (BEAKER) 91 fL 79-92 (test code = 753) MEAN CORPUSCULAR HEMOGLOBIN 29.2 pg 25.7-32.2 (BEAKER) (test code = 751) MEAN CORPUSCULAR HEMOGLOBIN CONC 32.1 GM/DL 32.3-36.5 L (BEAKER) (test code = 752) RED CELL DISTRIBUTION WIDTH 14.4 % 11.6-14.4 (BEAKER) (test code = 412) PLATELET COUNT (BEAKER) (test 273 K/CU MM 150-450 code = 756) MEAN PLATELET VOLUME (BEAKER) 11.2 fL 9.4-12.4 (test code = 754) NUCLEATED RED BLOOD CELLS 0 /100 WBC 0-0 (BEAKER) (test code = 413) NEUTROPHILS RELATIVE PERCENT 67 % (BEAKER) (test code = 429) LYMPHOCYTES RELATIVE PERCENT 18 % (BEAKER) (test code = 430) MONOCYTES RELATIVE PERCENT 8 % (BEAKER) (test code = 431) EOSINOPHILS RELATIVE PERCENT 6 % (BEAKER) (test code = 432) BASOPHILS RELATIVE PERCENT 1 % (BEAKER) (test code = 437) NEUTROPHILS ABSOLUTE COUNT 6.28 K/ L 1.78-5.38 H (BEAKER) (test code = 670) LYMPHOCYTES ABSOLUTE COUNT 1.73 K/ L 1.32-3.57 (BEAKER) (test code = 414) MONOCYTES ABSOLUTE COUNT (BEAKER) 0.77 K/ L 0.30-0.82 (test code = 415) EOSINOPHILS ABSOLUTE COUNT 0.54 K/ L 0.04-0.54 (BEAKER) (test code = 416) BASOPHILS ABSOLUTE COUNT (BEAKER) 0.07 K/ L 0.01-0.08 (test code = 417) IMMATURE GRANULOCYTES-RELATIVE 0.70 % 0.00-1.00 PERCENT (BEAKER) (test code = 2801) POCT-GLUCOSE [id number] 20:50:27 Test Item Value Reference Range Interpretation Comments POC-GLUCOSE METER 136 mg/dL 70-110 H : TESTED A T [facility] 6720 (BEAKER) (test code [facility], = 1538) 19363: Web Marketing Intern/Techni mata ID = [id number] for Fahad Wolf POCT-GLUCOSE [id number] 17:54:26 Test Item Value Reference Range Interpretation Comments POC-GLUCOSE METER 100 mg/dL 70-110 : TESTED A T [facility] 6720 (BEAKER) (test code = [facility], 153) [address]: Web Marketing Intern/Techni mata ID = [id number] for An Agustina orta URIC [id number] 17:50:30 Test Item Value Reference Range Interpretation Comments URIC ACID (BEAKER) (test code = 13.3 mg/dL 2.6-7.2 H 773) Web Marketing Intern ID - ED2D Echo W/Doppler(CW/PW/Color)2023-01-27 17:26:57Ejection FractionSLEH [facility]CHO [facility] W/Doppler(CW/PW/Color)2023-01-27 17:26:57Ejection FractionSLEH [facility] [id number] 11:42:51 Test Item Value Reference Range Interpretation Comments POC-GLUCOSE METER 362 mg/dL 70-110 H : TESTED A T [facility] 6720 (BEAKER) (test code = [facility], 1538) 69431: Web Marketing Intern/Techni mata ID = [id number] for An Agustina orta POCT-GLUCOSE [id number] 07:40:43 Test Item Value Reference Range Interpretation Comments POC-GLUCOSE METER 91 mg/dL 70-110 : TESTED A T [facility] 6720 (BEAKER) (test code = [place], 1538) 968[address]: Web Marketing Intern/Techni mata ID = [id number] for Agustina Ozuna BASIC METABOLIC [id number] 04:07:13 Test Item Value Reference Range Interpretation Comments SODIUM (BEAKER) 136 meq/L 136-145 (test code = 381) POTASSIUM 3.4 meq/L 3.5-5.1 L (BEAKER) (test code = 379) CHLORIDE (BEAKER) 100 meq/L 98-107 (test code = 382) CO2 (BEAKER) 23 meq/L 22-29 (test code = 355) BLOOD UREA 69 mg/dL 7-21 H NITROGEN (BEAKER) (test code = 354) CREATININE 4.31 mg/dL 0.57-1.25 H (BEAKER) (test code = 358) GLUCOSE RANDOM 125 mg/dL 70-105 H (BEAKER) (test code = 652) CALCIUM (BEAKER) 9.6 mg/dL 8.4-10.2 (test code = 697) EGFR (BEAKER) 15 Interpretatio n of eGFR (test code = mL/min/1.73 values Stage D escription 1092) sq m Result G1 Sarina l or high >=90 G2 Mildly decreased 60-89 G3a Mildl y to moderately 45-5 9 G3b Moderately to s everely 30-44 G4 Severl y decreased 15-29 G5 Kidney failure <15Reported eGF R is based on the CKD-EPI 1 equation that d oes not use a race coefficientEsti mated GFR is not as accur ate as Creatinine Brenda baig in predicting glom erular filtration rate . Estimated GFR is not appl icable for dialysis patien ts Web Marketing Intern ID - [id number] 04:02:54 Test Item Value Reference Range Interpretation Comments PHOSPHORUS (BEAKER) (test code = 5.5 mg/dL 2.3-4.7 H 604) Web Marketing Intern ID - [id number] 04:02:53 Test Item Value Reference Range Interpretation Comments MAGNESIUM (BEAKER) (test code = 2.2 mg/dL 1.6-2.6 627) Web Marketing Intern ID - EDPOCT-GLUCOSE [id number] 22:26:38 Test Item Value Reference Range Interpretation Comments POC-GLUCOSE METER 118 mg/dL 70-110 H : TESTED A T [facility] 6720 (BEAKER) (test code = [facility], 1538) 97503: Web Marketing Intern/Techni mata ID = [id number] for Brendan Almonte POCT-GLUCOSE [id number] 16:26:00 Test Item Value Reference Range Interpretation Comments POC-GLUCOSE METER 123 mg/dL 70-110 H : TESTED A T [facility] 6720 (BEAKER) (test code = [facility], 1538) 49332: Web Marketing Intern/Techni mata ID = [id number] for An marivel, Agustina POCT-GLUCOSE [id number] 13:53:54 Test Item Value Reference Range Interpretation Comments POC-GLUCOSE METER 128 mg/dL 70-110 H : TESTED A T [facility] 6720 (BEAKER) (test code = [facility], 1538) 95707: Web Marketing Intern/Techni mata ID = [id number] for An marivel, Agustina POCT-GLUCOSE [id number] 07:44:51 Test Item Value Reference Range Interpretation Comments POC-GLUCOSE METER 112 mg/dL 70-110 H : TESTED A T [facility] 6720 (BEAKER) (test code = [facility], 1538) 34538: Web Marketing Intern/Techni mata ID = [id number] for An derson, Agustina CBC W/PLT COUNT & AUTO [id number] 05:18:39 Test Item Value Reference Range Interpretation Comments WHITE BLOOD CELL COUNT (BEAKER) 8.6 K/ L 3.5-10.5 (test code = 775) RED BLOOD CELL COUNT (BEAKER) 3.39 M/ L 4.63-6.08 L (test code = 761) HEMOGLOBIN (BEAKER) (test code = 9.9 GM/DL 13.7-17.5 L 410) HEMATOCRIT (BEAKER) (test code = 30.8 % 40.1-51.0 L 411) MEAN CORPUSCULAR VOLUME (BEAKER) 91 fL 79-92 (test code = 753) MEAN CORPUSCULAR HEMOGLOBIN 29.2 pg 25.7-32.2 (BEAKER) (test code = 751) MEAN CORPUSCULAR HEMOGLOBIN CONC 32.1 GM/DL 32.3-36.5 L (BEAKER) (test code = 752) RED CELL DISTRIBUTION WIDTH 14.6 % 11.6-14.4 H (BEAKER) (test code = 412) PLATELET COUNT (BEAKER) (test 227 K/CU MM 150-450 code = 756) MEAN PLATELET VOLUME (BEAKER) 11.2 fL 9.4-12.4 (test code = 754) NUCLEATED RED BLOOD CELLS 0 /100 WBC 0-0 (BEAKER) (test code = 413) NEUTROPHILS RELATIVE PERCENT 70 % (BEAKER) (test code = 429) LYMPHOCYTES RELATIVE PERCENT 18 % (BEAKER) (test code = 430) MONOCYTES RELATIVE PERCENT 7 % (BEAKER) (test code = 431) EOSINOPHILS RELATIVE PERCENT 4 % (BEAKER) (test code = 432) BASOPHILS RELATIVE PERCENT 1 % (BEAKER) (test code = 437) NEUTROPHILS ABSOLUTE COUNT 6.03 K/ L 1.78-5.38 H (BEAKER) (test code = 670) LYMPHOCYTES ABSOLUTE COUNT 1.54 K/ L 1.32-3.57 (BEAKER) (test code = 414) MONOCYTES ABSOLUTE COUNT (BEAKER) 0.59 K/ L 0.30-0.82 (test code = 415) EOSINOPHILS ABSOLUTE COUNT 0.34 K/ L 0.04-0.54 (BEAKER) (test code = 416) BASOPHILS ABSOLUTE COUNT (BEAKER) 0.08 K/ L 0.01-0.08 (test code = 417) IMMATURE GRANULOCYTES-RELATIVE 0.60 % 0.00-1.00 PERCENT (BEAKER) (test code = 2801) BASIC METABOLIC [id number] 05:02:28 Test Item Value Reference Range Interpretation Comments SODIUM (BEAKER) 136 meq/L 136-145 (test code = 381) POTASSIUM 3.9 meq/L 3.5-5.1 Specimen slight ly (BEAKER) (test hemolyzed code = 379) CHLORIDE (BEAKER) 102 meq/L 98-107 (test code = 382) CO2 (BEAKER) 21 meq/L 22-29 L (test code = 355) BLOOD UREA 57 mg/dL 7-21 H NITROGEN (BEAKER) (test code = 354) CREATININE 4.14 mg/dL 0.57-1.25 H Specimen slight ly (BEAKER) (test hemolyzed code = 358) GLUCOSE RANDOM 106 mg/dL 70-105 H (BEAKER) (test code = 652) CALCIUM (BEAKER) 9.7 mg/dL 8.4-10.2 (test code = 697) EGFR (BEAKER) 15 Interpretatio n of eGFR (test code = mL/min/1.73 values Stage De scription 1092) sq m Result G1 Sarina l or high >=90 G2 Mildly decreased 60-89 G3a Mildl y to moderately 45-5 9 G3b Moderately to s everely 30-44 G4 Severl y decreased 15-29 G5 Kidney failure <15Reported eGF R is based on the CKD-EPI 2020 equation that d oes not use a race coefficientEsti mated GFR is not as accur ate as Creatinine Brenda jovanni in predicting glom erular filtration rate . Estimated GFR is not appl icable for dialysis patien ts Web Marketing Intern ID - [id number] 04:58:20 Test Item Value Reference Range Interpretation Comments PHOSPHORUS (BEAKER) 5.8 mg/dL 2.3-4.7 H Specimen slightly (test code = 604) hemolyzed Web Marketing Intern ID - [id number] 04:58:19 Test Item Value Reference Range Interpretation Comments MAGNESIUM (BEAKER) 2.2 mg/dL 1.6-2.6 Specimen slightly (test code = 627) hemolyzed Web Marketing Intern ID - MMCT, BRAIN, WITHOUT [id number] 23:26:00Reason for Exam (Free Text) - Addiitonal information for Radiologist->ICH, now with AMS and slurred speech[facility] : 1955 Sex: MFINAL REPORT EXAM: CT, BRAIN, WITHOUT CONTRAST INDICATION: Unlisted Reason for Exam TECHNIQUE: CT images from skull base to vertex without IV contrast. This exam was performed according to the departmental dose optimization program which includes automated exposure control, adjustment of th e mA and/or kV according to the patient size, and/or use of an iterative reconstruction technique. COMPARISON: Exam from 2 days prior FINDINGS: Parenchyma: No significant change in size or mass effect of the small intraparenchymal hematoma centered in the posterior limb of left internal capsule of theleft basal ganglia. No evidence of acute infarction. No new hemorrhage. Patchy areas of hypoattenuation are present in the cerebral white matter that are nonspecific but compatible with mild chronic microvascular ischemic changes. Extra-axial Collection: None Ventricular System: Ex vacuo enlarged without hydrocephalus Osseous Structures: No acute osseous abnormality. Included Orbits: Normal ParanasalSinuses: Predominantly clear Tympanomastoid Cavities: Normal Other: None IMPRESSION:No significant change in size or mass effect of the small parenchymal hematoma in the posterior left basal ganglia. No acute interval abnormality. Signed: Carol White MDReport Verified Date/Time: 01/25/2023 23:26:25 POCT-GLUCOSE [id number] 21:48:37 Test Item Value Reference Range Interpretation Comments POC-GLUCOSE METER 124 mg/dL 70-110 H : TESTED A T [facility] 6720 (BEAKER) (test code = [facility], 1538) 22123: Web Marketing Intern/Techni mata ID = [id number] for Tamera Almontekieran URINALYSIS W/ [id number] 19:11:28 Test Item Value Reference Range Interpretation Comments COLOR (BEAKER) (test code Light Yellow = 470) CLARITY (BEAKER) (test Clear code = 469) SPECIFIC GRAVITY UA 1.010 1.001-1.035 (BEAKER) (test code = 468) PH UA (BEAKER) (test code 6.0 5.0-8.0 = 467) PROTEIN UA (BEAKER) (test 50 mg/dL Negative A code = 464) GLUCOSE UA (BEAKER) (test Negative Negative code = 365) KETONES UA (BEAKER) (test Negative Negative code = 371) BILIRUBIN UA (BEAKER) Negative Negative (test code = 462) BLOOD UA (BEAKER) (test Negative Negative code = 461) NITRITE UA (BEAKER) (test Negative Negative code = 465) LEUKOCYTE ESTERASE UA Negative Negative (BEAKER) (test code = 466) UROBILINOGEN UA (BEAKER) 0.2 0.2-1.0 (test code = 463) RBC UA (BEAKER) (test code 1 /HPF = 519) WBC UA (BEAKER) (test code 1 /HPF = 520) SOURCE(BEAKER) (test code Urine, Clean Catch = 2795) Web Marketing Intern ID - [auto]Web Marketing Intern ID - techPotassium, random [id number] 18:41:32 Test Item Value Reference Range Interpretation Comments Potassium Urine 26.4 meq/L (test code = 2828-2) MICHEAL (test code = Reference Range: No MICHEAL) NormalsOperator ID - ADMIN [facility]iumProtein, random [id number] 18:41:32 Test Item Value Reference Range Interpretation Comments Protein, Urine (test code 55 mg/dL 0-14 H = 2888-6) MICHEAL (test code = MICHEAL) Web Marketing Intern ID - ADMIN Lab Interpretation (test Abnormal code = 32886-9) [facility]iumPotassium, random [id number] 18:41:32 Test Item Value Reference Range Interpretation Comments Potassium Urine 26.4 meq/L (test code = 2828-2) MICHEAL (test code = Reference Range: No MICHEAL) NormalsOperator ID - ADMIN [facility]iumProtein, random [id number] 18:41:32 Test Item Value Reference Range Interpretation Comments Protein, Urine (test code 55 mg/dL 0-14 H = 2888-6) MICHEAL (test code = MICHEAL) Web Marketing Intern ID - ADMIN Lab Interpretation (test Abnormal code = 40278-5) [facility]iumPOTASSIUM, RANDOM [id number] 18:41:32 Test Item Value Reference Range Interpretation Comments POTASSIUM URINE (BEAKER) (test 26.4 meq/L code = 195) Reference Range: No NormalsOperator ID - ADMINPROTEIN, RANDOM [id number] 18:41:32 Test Item Value Reference Range Interpretation Comments PROTEIN, URINE (BEAKER) (test code = 55 mg/dL 0-14 H 1569) Web Marketing Intern ID - ADMINSODIUM, RANDOM [id number] 18:41:32 Test Item Value Reference Range Interpretation Comments SODIUM URINE (BEAKER) (test code = 59 meq/L 243) Reference Range: No NormalsOperator ID - ADMINChloride, random [id number] 18:41:31 Test Item Value Reference Range Interpretation Comments Chloride, Urine (test 67 meq/L 330 code = 08684-1) MICHEAL (test code = MICHEAL) Reference Range: No NormalsOperator ID - ADMIN Lab Interpretation Normal (test code = 18687-7) [facility]iumCreatinine, random [id number] 18:41:31 Test Item Value Reference Range Interpretation Comments Creatinine, Ur 49.2 mg/dL (test code = 2161-8) MICHEAL (test code = Reference Range: No MICHEAL) NormalsOperator ID - ADMIN [facility]iumChloride, random [id number] 18:41:31 Test Item Value Reference Range Interpretation Comments Chloride, Urine (test 67 meq/L 330 code = 32382-0) MICHEAL (test code = MICHEAL) Reference Range: No NormalsOperator ID - ADMIN Lab Interpretation Normal (test code = 96862-2) [facility]iumCreatinine, random [id number] 18:41:31 Test Item Value Reference Range Interpretation Comments Creatinine, Ur 49.2 mg/dL (test code = 2161-8) MICHEAL (test code = Reference Range: No MICHEAL) NormalsOperator ID - ADMIN [facility]iumCHLORIDE, RANDOM [id number] 18:41:31 Test Item Value Reference Range Interpretation Comments CHLORIDE URINE (BEAKER) (test code = 67 meq/L 330 682) Reference Range: No NormalsOperator ID - ADMINCREATININE, RANDOM [id number] 18:41:31 Test Item Value Reference Range Interpretation Comments CREATININE URINE (BEAKER) (test 49.2 mg/dL code = 375) Reference Range: No NormalsOperator ID - ADMINUrea Nitrogen, random urine 2023-01-25 18:40:05 Test Item Value Reference Range Interpretation Comments Urea Nitrogen, Ur 347 mg/dL (test code = 3095-7) MICHEAL (test code = Reference Range: No MICHEAL) NormalsOperator ID - ADMIN [facility]iumUrea Nitrogen, random [id number] 18:40:05 Test Item Value Reference Range Interpretation Comments Urea Nitrogen, Ur 347 mg/dL (test code = 3095-7) MICHEAL (test code = Reference Range: No MICHEAL) NormalsOperator ID - ADMIN [facility]itariumUREA NITROGEN, RANDOM [id number] 18:40:05 Test Item Value Reference Range Interpretation Comments UREA NITROGEN URINE (BEAKER) (test 347 mg/dL code = 538) Reference Range: No NormalsOperator ID - ADMINPOCT-GLUCOSE [id number] 16:21:02 Test Item Value Reference Range Interpretation Comments POC-GLUCOSE METER 131 mg/dL 70-110 H : TESTED A T [facility] 6720 ([facility]) (test code = [facility], 1538) 81626: Web Marketing Intern/Techni mata ID = [id number] for Um eh, Akumbu POCT-GLUCOSE [id number] 12:31:27 Test Item Value Reference Range Interpretation Comments POC-GLUCOSE METER 131 mg/dL 70-110 H : TESTED A T [facility] 6720 ([facility]) (test code = [facility], 1538) 74080: Web Marketing Intern/Techni mata ID = [id number] for Noa Sun POCT-GLUCOSE [id number] 07:55:57 Test Item Value Reference Range Interpretation Comments POC-GLUCOSE METER 107 mg/dL 70-110 : TESTED A T [facility] 6720 (BEAKER) (test code = [facility], 1538) 42756: Web Marketing Intern/Techni mata ID = [id number] for Fu lloscar, Noa COMPREHENSIVE METABOLIC [id number] 06:43:07 Test Item Value Reference Range Interpretation Comments TOTAL PROTEIN 7.0 gm/dL 6.0-8.3 (BEAKER) (test code = 770) ALBUMIN (BEAKER) 3.5 g/dL 3.5-5.0 (test code = 1145) ALKALINE 69 U/L 40-150 PHOSPHATASE (BEAKER) (test code = 346) BILIRUBIN TOTAL 1.0 mg/dL 0.2-1.2 (BEAKER) (test code = 377) SODIUM (BEAKER) 136 meq/L 136-145 (test code = 381) POTASSIUM (BEAKER) 3.8 meq/L 3.5-5.1 (test code = 379) CHLORIDE (BEAKER) 106 meq/L 98-107 (test code = 382) CO2 (BEAKER) (test 19 meq/L 22-29 L code = 355) BLOOD UREA 57 mg/dL 7-21 H NITROGEN (BEAKER) (test code = 354) CREATININE 4.11 mg/dL 0.57-1.25 H (BEAKER) (test code = 358) GLUCOSE RANDOM 109 mg/dL 70-105 H (BEAKER) (test code = 652) CALCIUM (BEAKER) 9.3 mg/dL 8.4-10.2 (test code = 697) AST (SGOT) 20 U/L 5-34 (BEAKER) (test code = 353) ALT (SGPT) 12 U/L 6-55 (BEAKER) (test code = 347) EGFR (BEAKER) 16 Interpretatio n of eGFR (test code = 1092) mL/min/1.[address] age Description sq m Result G1 Norm al or high >=90 G2 Mildly decreased 60-89 G3a Mildl y to moderately 45-5 9 G3b Moderately to s everely 30-44 G4 Severl y decreased 15-29 G5 Kidne y failure <15Reported eGF R is based on the CKD-EPI 2020 equation that d oes not use a race coefficientEsti mated GFR is not as accur ate as Creatinine Brenda baig in predicting glom erular filtration rate . Estimated GFR is not appl icable for dialysis patien ts Web Marketing Intern ID - [id number] 06:42:18 Test Item Value Reference Range Interpretation Comments MAGNESIUM (BEAKER) (test code = 2.2 mg/dL 1.6-2.6 627) Web Marketing Intern ID - [id number] 06:42:18 Test Item Value Reference Range Interpretation Comments PHOSPHORUS (BEAKER) (test code = 4.7 mg/dL 2.3-4.7 604) Web Marketing Intern ID - ADMINPOCT-GLUCOSE [id number] 06:39:16 Test Item Value Reference Range Interpretation Comments POC-GLUCOSE METER 112 mg/dL 70-110 H : TESTED A T [facility] 6720 (BEAKER) (test code = [place], 1538) [address]: Web Marketing Intern/Techni mata ID = [id number] for Miroslava Islas POCT-GLUCOSE [id number] 00:15:08 Test Item Value Reference Range Interpretation Comments POC-GLUCOSE METER 115 mg/dL 70-110 H : TESTED A T [facility] 6720 (BEAKER) (test code = [place], 1538) 81442: Web Marketing Intern/Techni mata ID = [id number] for KARINA BLACK BASIC METABOLIC [id number] 21:52:33 Test Item Value Reference Range Interpretation Comments SODIUM (BEAKER) 137 meq/L 136-145 (test code = 381) POTASSIUM 3.9 meq/L 3.5-5.1 (BEAKER) (test code = 379) CHLORIDE (BEAKER) 107 meq/L 98-107 (test code = 382) CO2 (BEAKER) 18 meq/L 22-29 L (test code = 355) BLOOD UREA 56 mg/dL 7-21 H NITROGEN (BEAKER) (test code = 354) CREATININE 3.99 mg/dL 0.57-1.25 H (BEAKER) (test code = 358) GLUCOSE RANDOM 122 mg/dL 70-105 H (BEAKER) (test code = 652) CALCIUM (BEAKER) 9.4 mg/dL 8.4-10.2 (test code = 697) EGFR (BEAKER) 16 Interpretatio n of eGFR (test code = mL/min/1.73 values Stage De scription 1092) sq m Result G1 Sarina l or high >=90 G2 Mildly decreased 60-89 G3a Mildl y to moderately 45-5 9 G3b Moderately to s everely 30-44 G4 Severl y decreased 15-29 G5 Kidney failure <15Reported eGF R is based on the CKD-EPI 2020 equation that d oes not use a race coefficientEsti mated GFR is not as accur ate as Creatinine Brenda jovanni in predicting glom erular filtration rate . Estimated GFR is not appl icable for dialysis patien ts Web Marketing Intern ID - BSHIGH SENSITIVITY TROPONIN [id number] 17:51:17 Test Item Value Reference Range Interpretation Comments HIGH SENSITIVITY TROPONIN I (test 1049 pg/ml <=35 HH code = 7872954) Web Marketing Intern ID - ADMINThe PACKING ATTENDANT STAT High Sensitivity Troponin-I results should be used in conjunction with other diagnostic information such as ECG, clinical observations and information, and patientsymptoms to aid in the diagnosis of [place]. POCT-GLUCOSE [id number] 15:57:31 Test Item Value Reference Range Interpretation Comments POC-GLUCOSE METER 132 mg/dL 70-110 H : TESTED A T [facility] 6720 (BEAKER) (test code = [facility], 1538) 28798: Web Marketing Intern/Techni mata ID = [id number] for David De La Torre [id number] 14:21:17 Test Item Value Reference Range Interpretation Comments FERRITIN (BEAKER) (test code = 108.98 ng/mL 5.00-275.00 361) Web Marketing Intern ID - MARCOHIGH SENSITIVITY TROPONIN [id number] 14:10:56 Test Item Value Reference Range Interpretation Comments HIGH SENSITIVITY TROPONIN I (test 1200 pg/ml <=35 HH code = 5817636) Web Marketing Intern ID - ADMINThe PACKING ATTENDANT STAT High Sensitivity Troponin-I results should be used in conjunction with other diagnostic information such as ECG, clinical observations and information, and patientsymptoms to aid in the diagnosis of [place]. IRON, TIBC, % SAT. (WITHOUT FERRITIN)2023-01-24 14:01:23 Test Item Value Reference Range Interpretation Comments IRON (BEAKER) (test code = 547) 27.0 ug/dL 40.0-160.0 L TOTAL IRON BINDING CAPACITY 370 ug/dL 250-450 (BEAKER) (test code = 769) IRON % SATURATION (2) (BEAKER) 7 % 20-55 L (test code = 2590) Web Marketing Intern ID - MARCOPOCT-GLUCOSE [id number] 11:03:59 Test Item Value Reference Range Interpretation Comments POC-GLUCOSE METER 129 mg/dL 70-110 H : TESTED A T [facility] 6720 (BEAKER) (test code = [facility], 1538) 79076: Web Marketing Intern/Techni mata ID = [id number] for David De La Torre RAD, ABDOMEN/KUB, 1 VIEW [id number] 07:32:00Reason for exam:->c/f ileus [facility] : 1955 Sex: MFINAL REPORT CLINICAL HISTORY: c/f ileus TECHNIQUE: Supine abdomen COMPARISON: 01/23/2023IMPRESSION: The bowel gas pattern is unchanged. Free air and air-fluid levels are not definitively seen, but cannot be excluded on the supine view. Signed: Amy Coleman MDReport Verified Date/Time: 01/24/2023 07:32:52 SENSITIVITY TROPONIN [id number] 07:14:33 Test Item Value Reference Range Interpretation Comments HIGH SENSITIVITY TROPONIN I (test 1592 pg/ml <=35 HH code = 3676372) Web Marketing Intern ID - MARCOThe PACKING ATTENDANT STAT High Sensitivity Troponin-I results should be used in conjunction with other diagnostic information such as ECG, clinical observations and information, and patientsymptoms to aid in the diagnosis of [place]. COMPREHENSIVE METABOLIC [id number] 03:44:33 Test Item Value Reference Range Interpretation Comments TOTAL PROTEIN 6.6 gm/dL 6.0-8.3 Specimen sligh tly (BEAKER) (test hemolyzed code = 770) ALBUMIN (BEAKER) 3.3 g/dL 3.5-5.0 L Specimen sl ightly (test code = 1145) hemolyzed ALKALINE 61 U/L 40-150 PHOSPHATASE (BEAKER) (test code = 346) BILIRUBIN TOTAL 1.4 mg/dL 0.2-1.2 H Specimen sli ghtly (BEAKER) (test hemolyzed code = 377) SODIUM (BEAKER) 133 meq/L 136-145 L (test code = 381) POTASSIUM (BEAKER) 4.0 meq/L 3.5-5.1 Specimen slightly (test code = 379) hemolyzed CHLORIDE (BEAKER) 106 meq/L 98-107 (test code = 382) CO2 (BEAKER) (test 17 meq/L 22-29 L code = 355) BLOOD UREA 59 mg/dL 7-21 H NITROGEN (BEAKER) (test code = 354) CREATININE 3.69 mg/dL 0.57-1.25 H Specimen slight ly (BEAKER) (test hemolyzed code = 358) GLUCOSE RANDOM 102 mg/dL 70-105 (BEAKER) (test code = 652) CALCIUM (BEAKER) 8.8 mg/dL 8.4-10.2 (test code = 697) AST (SGOT) 23 U/L 5-34 Specimen slight ly (BEAKER) (test hemolyzed code = 353) ALT (SGPT) 13 U/L 6-55 Specimen slight ly (BEAKER) (test hemolyzed code = 347) EGFR (BEAKER) 18 Interpretatio n of eGFR (test code = 1092) mL/min/1.[address] age Description sq m Result G1 Sarina l or high >=90 G2 Mildly decreased 60-89 G3a Mildl y to moderately 45-5 9 G3b Moderately to s everely 30-44 G4 Severl y decreased 15-29 G5 Kidney failure <15Reported eGF R is based on the CKD-EPI 2021 equation that d oes not use a race coefficientEsti mated GFR is not as accur ate as Creatinine Brenda baig in predicting glom erular filtration rate . Estimated GFR is not appl icable for dialysis patien ts Web Marketing Intern ID - [id number] 03:40:39 Test Item Value Reference Range Interpretation Comments PHOSPHORUS (BEAKER) 5.2 mg/dL 2.3-4.7 H Specimen slightly (test code = 604) hemolyzed Web Marketing Intern ID - [id number] 03:40:38 Test Item Value Reference Range Interpretation Comments MAGNESIUM (BEAKER) 2.1 mg/dL 1.6-2.6 Specimen slightly (test code = 627) hemolyzed Web Marketing Intern ID - ADMINCBC W/PLT COUNT & AUTO [id number] 03:00:03 Test Item Value Reference Range Interpretation Comments WHITE BLOOD CELL COUNT (BEAKER) 9.6 K/ L 3.5-10.5 (test code = 775) RED BLOOD CELL COUNT (BEAKER) 2.98 M/ L 4.63-6.08 L (test code = 761) HEMOGLOBIN (BEAKER) (test code = 8.7 GM/DL 13.7-17.5 L 410) HEMATOCRIT (BEAKER) (test code = 27.0 % 40.1-51.0 L 411) MEAN CORPUSCULAR VOLUME (BEAKER) 91 fL 79-92 (test code = 753) MEAN CORPUSCULAR HEMOGLOBIN 29.2 pg 25.7-32.2 (BEAKER) (test code = 751) MEAN CORPUSCULAR HEMOGLOBIN CONC 32.2 GM/DL 32.3-36.5 L (BEAKER) (test code = 752) RED CELL DISTRIBUTION WIDTH 15.3 % 11.6-14.4 H (BEAKER) (test code = 412) PLATELET COUNT (BEAKER) (test 244 K/CU MM 150-450 code = 756) MEAN PLATELET VOLUME (BEAKER) 10.2 fL 9.4-12.4 (test code = 754) NUCLEATED RED BLOOD CELLS 0 /100 WBC 0-0 (BEAKER) (test code = 413) NEUTROPHILS RELATIVE PERCENT 78 % (BEAKER) (test code = 429) LYMPHOCYTES RELATIVE PERCENT 13 % (BEAKER) (test code = 430) MONOCYTES RELATIVE PERCENT 7 % (BEAKER) (test code = 431) EOSINOPHILS RELATIVE PERCENT 2 % (BEAKER) (test code = 432) BASOPHILS RELATIVE PERCENT 0 % (BEAKER) (test code = 437) NEUTROPHILS ABSOLUTE COUNT 7.41 K/ L 1.78-5.38 H (BEAKER) (test code = 670) LYMPHOCYTES ABSOLUTE COUNT 1.21 K/ L 1.32-3.57 L (BEAKER) (test code = 414) MONOCYTES ABSOLUTE COUNT (BEAKER) 0.69 K/ L 0.30-0.82 (test code = 415) EOSINOPHILS ABSOLUTE COUNT 0.16 K/ L 0.04-0.54 (BEAKER) (test code = 416) BASOPHILS ABSOLUTE COUNT (BEAKER) 0.04 K/ L 0.01-0.08 (test code = 417) IMMATURE GRANULOCYTES-RELATIVE 0.50 % 0.00-1.00 PERCENT (MARCUSAKER) (test code = 2801) HIGH SENSITIVITY TROPONIN [id number] 00:55:04 Test Item Value Reference Range Interpretation Comments HIGH SENSITIVITY TROPONIN I (test 1822 pg/ml <=35 HH code = 5322377) Web Marketing Intern ID - ADMINThe PACKING ATTENDANT STAT High Sensitivity Troponin-I results should be used in conjunction with other diagnostic information such as ECG, clinical observations and information, and patientsymptoms to aid in the diagnosis of [place]. POCT-GLUCOSE [id number] 23:38:04 Test Item Value Reference Range Interpretation Comments POC-GLUCOSE METER 115 mg/dL 70-110 H : TESTED A T [facility] 6720 (Nephros) (test code = [facility], 1538) [address]: Web Marketing Intern/Techni mata ID = [id number] for Vito Mendoza HIGH SENSITIVITY TROPONIN [id number] 19:10:50 Test Item Value Reference Range Interpretation Comments HIGH SENSITIVITY TROPONIN I (test 1441 pg/ml <=35 HH code = 9070516) Web Marketing Intern ID - ADMINThe PACKING ATTENDANT STAT High Sensitivity Troponin-I results should be used in conjunction with other diagnostic information such as ECG, clinical observations and information, and patientsymptoms to aid in the diagnosis of [place]. POCT-GLUCOSE [id number] 18:07:45 Test Item Value Reference Range Interpretation Comments POC-GLUCOSE METER 123 mg/dL 70-110 H : TESTED A T [facility] 6720 (Nephros) (test code = [facility], 1538) [address]60[address]: Web Marketing Intern/Techni mata ID = [id number] for [facility], Jihan [id number] 14:12:16 Test Item Value Reference Range Interpretation Comments RPR SCREEN (LISE) (test code = Nonreactive Nonreactive 420) HIGH SENSITIVITY TROPONIN [id number] 14:08:23 Test Item Value Reference Range Interpretation Comments HIGH SENSITIVITY TROPONIN I (test 1404 pg/ml <=35 HH code = 5072827) Web Marketing Intern ID - BRIANNE emperatriz PACKING ATTENDANT STAT High Sensitivity Troponin-I results should be used in conjunction with other diagnostic information such as ECG, clinical observations and information, and patient symptoms to aid in the diagnosis of [place].HEMOGLOBIN [id number] 12:27:37 Test Item Value Reference Range Interpretation Comments HEMOGLOBIN A1C 4.4 % See_Comment [Automated m essage] ELECTROPHORESIS (LISE) The system which (test code = 3811) generated this result transmitted ref erence range: <=5.6%. The reference range was not used to int erpret this result as normal/abnormal . "The A1c is measured using a NGSP-certified method. HbA1c value equal to or greater than 6.5% as thediagnosis cutoff for diabetes. An HbA1c value of 5.7- 6.4% indicates increased risk for diabetes (prediabetes)."Web Marketing Intern ID - ADMPOCT- GLUCOSE [id number] 11:58:13 Test Item Value Reference Range Interpretation Comments POC-GLUCOSE METER 135 mg/dL 70-110 H : TESTED A T [facility] 6720 (LISE) (test code = [facility] [place], 1538) [address]: Web Marketing Intern/Techni mata ID = [id number] for Jihan La CT, BRAIN, WITHOUT [id number] 10:58:00This is a 24 hour re-imaging following a HTN ICH [facility] : 1955 Sex: MFINAL REPORT CT, BRAIN, WITHOUT CONTRAST CLINICAL INDICATION: Stroke, follow up COMPARISON: 01/22/2023 TECHNIQUE: Noncontrast axial CT imaging of the brain and skull. DOSE REDUCTION: Dose modulation, iterative reconstruction, and/or weight-based adjustment of the mA/kV was utilized to reduce the radiation dose to as low as reasonably achievable. FINDINGS:2 cm hematoma within the left basalganglia demonstrates expected evolution since 01/22/2023. No new intracranial hemorrhage. Background parenchymal volume loss and chronic microvascular changes of the periventricular and subcortical white matter are redemonstrated. No hydrocephalus. Orbits are within normal limits. No obstructive paranasal sinus disease. IMPRESSION: 2 cm hematoma within the left basal ganglia demonstrates expected evolution since 01/22/2023. No new intracranial hemorrhage. If there is persistent clinical concern for int racranial pathology, MR examination is recommended for further characterization. Signed: Carmel Castaneda MDReport Verified Date/Time: 01/23/2023 10:58:12 U/S, ABDOMINAL, [id number] 07:58:00Abdomen limited area? Add comment if clarification is needed.->Right upper quadrant Reason for exam:->RUQ pain, HTN emergency Should this be performed at the bedside?->Yes [facility] 1955 Sex: MFINAL REPORT Abdominal ultrasound and limited pelvic ultrasound Clinical History: Rightupper quadrant pain Discussion: Sonographic evaluation of the the abdomen is performed. The liver has normal size and measures 16.1 cm in length. The liver echotexture is normal, without focal mass. There is no intra or extrahepatic biliary dilatation. The common bile duct measures 4 mm. The gallbladder has normal appearance, without wall thickening, stones, or pericholecystic fluid. The main portal vein diameter is normal, measuring 11 mm. The pancreatic head, body, and proximal tail demonstrate noabnormality there is trace ascites. The right and the left kidney measure 9.6 and 10.6 cm in length r espectively and are normal in size. There is no renal mass, hydronephrosis, or shadowing renal calculus. The spleen measures 14.0 cm in length and is normal in echotexture. Segments of the inferior vena cava and aorta visualized demonstrate no abnormality. The bladder is contracted with a Pedersen catheter. Impression: 1. Mild splenomegaly. 2. Trace ascites. Signed: Gloria Wright MDReport Verified Date/Time: 01/23/2023 07:58:32 U/S, PELVIC, [id number] 07:58:00Reason for exam:- >HTN emergency and likely new WOJCIECH vs CKD Should this be performed at the bedside?->[facility] : 1955 Sex: MFINAL REPORT Abdominal ultrasound and limited pelvic ultrasound Clinical History: Right upper quadrant pain Discussion: Sonographic evaluation of the the abdomen is performed. The liver hasnormal size and measures 16.1 cm in length. The liver echotexture is normal, without focal mass. There is no intra or extrahepatic biliary dilatation. The common bile duct measures 4 mm. The gallbladder has normal appearance, without wall thickening, stones, or pericholecystic fluid. The main portal vein diameter is normal, measuring 11 mm. The pancreatic head, body, and proximal tail demonstrate no abnormality there is trace ascites. The right and the left kidney measure 9.6 and 10.6 cm in length respectively and are normal in size. There is no renal mass, hydronephrosis, or shadowing renal calculus. The spleen measures 14.0 cm in length and is normal in echotexture. Segments of the inferior venacava and aorta visualized demonstrate no abnormality. The bladder is contracted with a Pedersen catheter. Impression: 1. Mild splenomegaly. 2. Trace ascites. Signed: Gloria Wrighteport Verified Date/Time: 01/23/2023 07:58:32 [id number] 07:45:49 Test Item Value Reference Range Interpretation Comments PROCALCITONIN (BEAKER) (test code 0.95 ng/mL <0.05 H = 3036) SEPSIS RISK (ng/mL)Low: 0.05-0.50Intermediate: 0.51-2.00High: >=2.01LIPASE 2023-01-23 06:18:15 Test Item Value Reference Range Interpretation Comments LIPASE (BEAKER) (test code = 749) 43 U/L 8- Web Marketing Intern ID - mmHIGH SENSITIVITY TROPONIN [id number] 06:13:52 Test Item Value Reference Range Interpretation Comments HIGH SENSITIVITY TROPONIN I (test 951 pg/ml <=35 HH code = 2158054) Web Marketing Intern ID - mmThe PACKING ATTENDANT STAT High Sensitivity Troponin-I results should be used in conjunctionwith other diagnostic information such as ECG, clinical observations and information, and patient symptoms to aid in the diagnosis of [place].Lactic Acid, [id number] 05:51:30 Test Item Value Reference Range Interpretation Comments Lactate, Art (test code = 0.6 mmol/L 0.5-2.0 4) MICHEAL (test code = MICHEAL) Web Marketing Intern ID - BRIANNE W Lab Interpretation (test Normal code = 28855-5) [facility]iumL[facility], [id number] 05:51:30 Test Item Value Reference Range Interpretation Comments Lactate, Art (test code = 0.6 mmol/L 0.5-2.0 2874) MICHEAL (test code = MICHEAL) Web Marketing Intern ID - BRIANNE W Lab Interpretation (test Normal code = 25283-9) [facility]iumLACTIC ACID, [id number] 05:51:30 Test Item Value Reference Range Interpretation Comments LACTATE BLOOD ARTERIAL (2) 0.6 mmol/L 0.5-2.0 (BEAKER) (test code = 2874) Web Marketing Intern ID - BRIANNE WPOCT-GLUCOSE [id number] 05:41:39 Test Item Value Reference Range Interpretation Comments POC-GLUCOSE METER 126 mg/dL 70-110 H : TESTED A T [facility] 6720 (BEAKER) (test code = [facility] [place], 1538) [address]: Web Marketing Intern/Techni mata ID = [id number] for To Marysol lopez RAD, ABDOMEN/KUB, 1 VIEW [id number] 04:57:00Reason for exam:->abdominal painShould this be performed at the bedside?->Yes [facility] 1955 Sex: MFINAL REPORT EXAM/TECHNIQUE: RAD, ABDOMEN/KUB, 1 VIEW AP INDICATION: Abdominal pain. COMPARISON: None. FINDINGS: Distended loops of small bowel without prabhu dilatation. No acute osseous process. Pedersen catheter projects over the bladder. Impression: Distended loops of small bowel without prabhu dilatation may represent ileus. No findings of bowel obstruction. Signed: Lalo Dee MDRmidstate medical center Verified Date/Time: 01/23/2023 04:57:34 Electronically signed by: LALO DEE MD on 304:57 AMCOMPREHENSIVE METABOLIC [id number] 03:57:18 Test Item Value Reference Range Interpretation Comments TOTAL PROTEIN 6.6 gm/dL 6.0-8.3 (BEAKER) (test code = 770) ALBUMIN (BEAKER) 3.4 g/dL 3.5-5.0 L (test code = 1145) ALKALINE 75 U/L 40-150 PHOSPHATASE (BEAKER) (test code = 346) BILIRUBIN TOTAL 2.0 mg/dL 0.2-1.2 H (BEAKER) (test code = 377) SODIUM (BEAKER) 135 meq/L 136-145 L (test code = 381) POTASSIUM (BEAKER) 4.4 meq/L 3.5-5.1 (test code = 379) CHLORIDE (BEAKER) 108 meq/L 98-107 H (test code = 382) CO2 (BEAKER) (test 17 meq/L 22-29 L code = 355) BLOOD UREA 54 mg/dL 7-21 H NITROGEN (BEAKER) (test code = 354) CREATININE 3.37 mg/dL 0.57-1.25 H (BEAKER) (test code = 358) GLUCOSE RANDOM 129 mg/dL 70-105 H (BEAKER) (test code = 652) CALCIUM (BEAKER) 8.9 mg/dL 8.4-10.2 (test code = 697) AST (SGOT) 17 U/L 5-34 (BEAKER) (test code = 353) ALT (SGPT) 14 U/L 6-55 (BEAKER) (test code = 347) EGFR (BEAKER) 20 Interpretatio n of eGFR (test code = 1092) mL/min/1.[address] age Description sq m Result G1 Sarina l or high >=90 G2 Mildly decreased 60-89 G3a Mildl y to moderately 45-5 9 G3b Moderately to s everely 30-44 G4 Severl y decreased 15-29 G5 Kidne y failure <15Reported eGF R is based on the CKD-EPI 2021 equation that d oes not use a race coefficientEsti mated GFR is not as accur ate as Creatinine Brenda baig in predicting glom erular filtration rate . Estimated GFR is not appl icable for dialysis patien ts Web Marketing Intern ID - BRIANNE [id number] 03:54:33 Test Item Value Reference Range Interpretation Comments MAGNESIUM (BEAKER) (test code = 2.0 mg/dL 1.6-2.6 627) Web Marketing Intern ID - BRIANNE [id number] 03:54:33 Test Item Value Reference Range Interpretation Comments PHOSPHORUS (BEAKER) (test code = 5.2 mg/dL 2.3-4.7 H 604) Web Marketing Intern KHADAR DECKER WCBC W/PLT COUNT & AUTO [id number] 03:34:45 Test Item Value Reference Range Interpretation Comments WHITE BLOOD CELL COUNT (BEAKER) 10.9 K/ L 3.5-10.5 H (test code = 775) RED BLOOD CELL COUNT (BEAKER) 3.00 M/ L 4.63-6.08 L (test code = 761) HEMOGLOBIN (BEAKER) (test code = 8.9 GM/DL 13.7-17.5 L 410) HEMATOCRIT (BEAKER) (test code = 26.8 % 40.1-51.0 L 411) MEAN CORPUSCULAR VOLUME (BEAKER) 89 fL 79-92 (test code = 753) MEAN CORPUSCULAR HEMOGLOBIN 29.7 pg 25.7-32.2 (BEAKER) (test code = 751) MEAN CORPUSCULAR HEMOGLOBIN CONC 33.2 GM/DL 32.3-36.5 (BEAKER) (test code = 752) RED CELL DISTRIBUTION WIDTH 15.1 % 11.6-14.4 H (BEAKER) (test code = 412) PLATELET COUNT (BEAKER) (test 219 K/CU MM 150-450 code = 756) MEAN PLATELET VOLUME (BEAKER) 10.7 fL 9.4-12.4 (test code = 754) NUCLEATED RED BLOOD CELLS 0 /100 WBC 0-0 (BEAKER) (test code = 413) NEUTROPHILS RELATIVE PERCENT 79 % (BEAKER) (test code = 429) LYMPHOCYTES RELATIVE PERCENT 13 % (BEAKER) (test code = 430) MONOCYTES RELATIVE PERCENT 7 % (BEAKER) (test code = 431) EOSINOPHILS RELATIVE PERCENT 1 % (BEAKER) (test code = 432) BASOPHILS RELATIVE PERCENT 0 % (BEAKER) (test code = 437) NEUTROPHILS ABSOLUTE COUNT 8.56 K/ L 1.78-5.38 H (BEAKER) (test code = 670) LYMPHOCYTES ABSOLUTE COUNT 1.40 K/ L 1.32-3.57 (BEAKER) (test code = 414) MONOCYTES ABSOLUTE COUNT (BEAKER) 0.78 K/ L 0.30-0.82 (test code = 415) EOSINOPHILS ABSOLUTE COUNT 0.05 K/ L 0.04-0.54 (BEAKER) (test code = 416) BASOPHILS ABSOLUTE COUNT (BEAKER) 0.03 K/ L 0.01-0.08 (test code = 417) IMMATURE GRANULOCYTES-RELATIVE 0.60 % 0.00-1.00 PERCENT (BEAKER) (test code = 2801) HIGH SENSITIVITY TROPONIN [id number] 01:49:53 Test Item Value Reference Range Interpretation Comments HIGH SENSITIVITY TROPONIN I (test 608 pg/ml <=35 HH code = 9536140) Web Marketing Intern ID - mmThe PACKING ATTENDANT STAT High Sensitivity Troponin-I results should be used in conjunctionwith other diagnostic information such as ECG, clinical observations and information, and patient symptoms to aid in the diagnosis of [place].RAD, CHEST, 1 VIEW, NON [id number] 01:43:00Reason for exam:- >tropinemiaShould this be performed at the bedside?->Yes [facility] 1955 Sex: MFINAL REPORT Chest one view. Clinical history: tropinemia Comparison: None Discussion: Afrontal chest is provided. Cardiac silhouette is enlarged. There is vascular congestion and interstitial edema. No definite consolidation is identified. No pneumothorax, or large effusion. No acute bony abnormality. Signed: Agatha Ceja Verified Date/Time: 01/23/2023 01:43:55 POCT-GLUCOSE [id number] 01:08:14 Test Item Value Reference Range Interpretation Comments POC-GLUCOSE METER 142 mg/dL 70-110 H : TESTED A T [facility] 6720 (LISE) (test code = [facility], 1538) [address]: Web Marketing Intern/Techni mata ID = [id number] for To Marysol lopez CT, BRAIN, WITHOUT [id number] 23:58:00 [facility] 1955 Sex: MFINAL REPORT EXAM/TECHNIQUE: Noncontrast CT of the head. Dose modulation, iterative reconstruction, and/or weight based adjustment of the mA/kV was utilized to reduce the radiation dose to as low as reasonably achievable. INDICATION: Stroke. COMPARISON: None. FINDINGS: Parenchymal hematoma centered in the left thalamus/posterior limb of the internal capsule measures 7 x 17 mm. There is adjacent presumptive vasogenic edema. No hydrocephalus. No midline shift. Basal and suprasellar cisterns are patent. No cerebellar tonsillar ectopia. No territorial joseph-white differentiation loss. Heavy burden of chronic microvascular changes. Orbits are normal. Paranasal sinuses are clear. Mastoid air cells are clear. No acute osseous processes or suspicious osseous lesion. Midline structures are normal. Visualized face and neck are unremarkable. Impression: Parenchymal hematoma centered in the left t halamus/posterior limb of the internal capsule without hydrocephalus or herniation. Hypertensive angiopathy is a likely cause. Per review of notes, patient is an neural critical care with findings known. Signed: Lalo Dee MDReport Verified Date/Time: 01/22/2023 23:58:31 VITAMIN [id number] 19:21:06 Test Item Value Reference Range Interpretation Comments VITAMIN B12 (LISE) (test code = 936 pg/mL 213-816 H 774) Web Marketing Intern ID - BSTSH/FREE T4 IF [id number] 18:30:51 Test Item Value Reference Range Interpretation Comments THYROID STIMULATING HORMONE 1.979 uIU/mL 0.350-4.940 (LISE) (test code = 772) Web Marketing Intern ID - mmHIV-1 ANTIGEN WITH HIV-1/2 [id number] 18:30:51 Test Item Value Reference Range Interpretation Comments HIV-1 ANTIGEN WITH HIV 1\\T\\2 Nonreactive Nonreactive ANTIBODY (2) (LISE) (test code = 2586) Web Marketing Intern ID - mmSARS-COV2/RT-PCR ([facility])2023-01-22 18:28:23 Test Item Value Reference Range Interpretation Comments SARS-COV2/RT-PCR Negative Negative The SARS-Co V-2 target (test code = nucleic acids a re not 2427502) detected in thi s specimen. Negative result s do not preclude SARS-C oV-2 infection and s hould not be used as the donta e basis for patient managem ent decisions. Nega tive results must be combine d with clinical observ ations, patient history , and epidemiological information. A false negativ e result may occur if a spec imen is improperly joel ected, transported or handled. This SARS CoV-2 test is a rapid, real-time RT-PC R test intended for th e qualitative detection of nu cleic acid from SARS-CoV-2 in a nasopharyngeal swab specimen collected from individuals suspected of CO VID-19 by their healthcar e provider. This test has been authorized by FDA under an EUA for use by authorized laboratories. This test is only authorized for the duration of the declaration that circumstances exist justifying the authorization of emergency use of in vitro diagnostic tests for detection and/or diagnosis of COVID-19 under Section 564(b)(1) of the Federal Food, Drug and Cosmetic Act, 21 U.S.C. 360bbb-3(b)(1), unless the authorization is terminated or revoked sooner. Fact Sheet for Healthcare Providers: https://www.cepheid.co m/Documents/Xpert%20Xpress%20SARS%20CoV-2/Fact%20Sheets/302-3802%77PBGE-XYO-4%20 HEALTHCARE%20PROVIDERS%20FACT%20SHEET.pdf Fact Sheet for Healthcare Patients: https://www.[employer]/Documents/Xpert%20Xp ress%20SARS%20CoV-2/Fact%20Sheets/302-3801%59LZCX-HOK-8%20PATIENT%20FACT%20SHEET .pdfHIGH SENSITIVITY TROPONIN [id number] 18:18:02 Test Item Value Reference Range Interpretation Comments HIGH SENSITIVITY TROPONIN I (test 122 pg/ml <=35 H code = 9799801) Web Marketing Intern ID - BSThe PACKING ATTENDANT STAT High Sensitivity Troponin-I results should be used in conjunctionwith other diagnostic information such as ECG, clinical observations and information, and patient symptoms to aid in the diagnosis of [place].COMPREHENSIVE METABOLIC [id number] 18:13:25 Test Item Value Reference Range Interpretation Comments TOTAL PROTEIN 7.6 gm/dL 6.0-8.3 (BEAKER) (test code = 770) ALBUMIN (BEAKER) 4.0 g/dL 3.5-5.0 (test code = 1145) ALKALINE 90 U/L 40-150 PHOSPHATASE (BEAKER) (test code = 346) BILIRUBIN TOTAL 1.9 mg/dL 0.2-1.2 H (BEAKER) (test code = 377) SODIUM (BEAKER) 135 meq/L 136-145 L (test code = 381) POTASSIUM (BEAKER) 4.1 meq/L 3.5-5.1 (test code = 379) CHLORIDE (BEAKER) 106 meq/L 98-107 (test code = 382) CO2 (BEAKER) (test 18 meq/L 22-29 L code = 355) BLOOD UREA 57 mg/dL 7-21 H NITROGEN (BEAKER) (test code = 354) CREATININE 3.40 mg/dL 0.57-1.25 H (BEAKER) (test code = 358) GLUCOSE RANDOM 187 mg/dL 70-105 H (BEAKER) (test code = 652) CALCIUM (BEAKER) 9.3 mg/dL 8.4-10.2 (test code = 697) AST (SGOT) 16 U/L 5-34 (BEAKER) (test code = 353) ALT (SGPT) 18 U/L 6-55 (BEAKER) (test code = 347) EGFR (BEAKER) 19 Interpretati on of eGFR (test code = 1092) mL/min/1.[address] age Description sq m Result G1 Sarina l or high >=90 G2 Mildly decreased 60-89 G3a Mildl y to moderately 45-5 9 G3b Moderately to s everely 30-44 G4 Severl y decreased 15-29 G5 Kidney failure <15Reported eGF R is based on the CKD-EPI 2020 equation that d oes not use a race coefficientEsti mated GFR is not as accur ate as Creatinine Brenda jovanni in predicting glom erular filtration rate . Estimated GFR is not appl icable for dialysis patien ts Web Marketing Intern ID - BSLIPID [id number] 18:11:44 Test Item Value Reference Range Interpretation Comments TRIGLYCERIDES (BEAKER) (test code = 108 mg/dL 540) CHOLESTEROL (BEAKER) (test code = 146 mg/dL 631) HDL CHOLESTEROL (BEAKER) (test code 31 mg/dL = 976) LDL CHOLESTEROL CALCULATED (ChromoTekAKER) 93 mg/dL (test code = 633) Triglyceride Reference Range: Low Risk <150 Borderline 150-199 High Risk 200- 499 Very High Risk >=500Cholesterol Reference Range: Low Risk <200 Borderline 200-239 High Risk >240HDL Cholesterol Reference Range: Low Risk >=60 High Risk <40LDL Cholesterol Reference Range: Optimal <100 Near Optimal 100-129 Borderline 130-159 High 160-189 Very High >=190 Web Marketing Intern ID - [id number] 18:11:43 Test Item Value Reference Range Interpretation Comments MAGNESIUM (BEAKER) (test code = 2.1 mg/dL 1.6-2.6 627) Web Marketing Intern ID - [id number] 18:11:43 Test Item Value Reference Range Interpretation Comments PHOSPHORUS (BEAKER) (test code = 4.9 mg/dL 2.3-4.7 H 604) Web Marketing Intern ID - BSRapid drug screen, [id number] 18:09:17 Test Item Value Reference Range Interpretation Comments Barbiturate Screen Negative Negative (test code = 84962-6) Benzodiazepine Screen Positive Negative A (test code = 27124-2) Cocaine (Metab.) Negative Negative Screen (test code = 3397-7) Methadone Screen (test Negative Negative code = 59273-9) Opiate Screen (test Positive Negative A code = 91767-5) Cannabinoid Screen Negative Negative (test code = 12725-0) Amph/Methamph Screen Negative Negative (test code = 98834-6) Phencyclidine Screen Negative Negative (test code = 31392-5) pH, UA (test code = 6.0 5.0-8.0 5803-2) MICHEAL (test code = MICHEAL) DRUG CUTOFF CONC.Cocaine 300 ng/mL Cannabinoid 50 ng/mLBenzodiazepine 200 ng/mLBarbiturate 200 ng/mLPhencyclidine 25 ng/mLOpiate 300 ng/mLMethadone 300 ng/mLAmphetamine/ 1000 ng/mL Methamphetamine This assay provides an unconfirmed qualitative test result for the clinical management of patients in emergency situations. Chain of custody not maintained. Some fekd-ech-uxcffhn medications, as well as adulterants, may cause inaccurate results. Clinical correlation should be applied. A more comprehensive drug screen or confirmation of a detected drug may be performed upon request.Web Marketing Intern ID - mm Lab Interpretation Abnormal (test code = 23225-3) [facility], [id number] 18:09:17 Test Item Value Reference Range Interpretation Comments Barbiturate Screen Negative Negative (test code = 03079-7) Benzodiazepine Screen Positive Negative A (test code = 23193-2) Cocaine (Metab.) Negative Negative Screen (test code = 3397-7) Methadone Screen (test Negative Negative code = 56239-0) Opiate Screen (test Positive Negative A code = 70459-8) Cannabinoid Screen Negative Negative (test code = 12153-2) Amph/Methamph Screen Negative Negative (test code = 99307-4) Phencyclidine Screen Negative Negative (test code = 96655-0) pH, UA (test code = 6.0 5.0-8.0 5803-2) MICHEAL (test code = MICHEAL) DRUG CUTOFF CONC.Cocaine 300 ng/mL Cannabinoid 50 ng/mLBenzodiazepine 200 ng/mLBarbiturate 200 ng/mLPhencyclidine 25 ng/mLOpiate 300 ng/mLMethadone 300 ng/mLAmphetamine/ 1000 ng/mL Methamphetamine This assay provides an unconfirmed qualitative test result for the clinical management of patients in emergency situations. Chain of custody not maintained. Some keeg-etb-gqbumpc medications, as well as adulterants, may cause inaccurate results. Clinical correlation should be applied. A more comprehensive drug screen or confirmation of a detected drug may be performed upon request.Web Marketing Intern ID - mm Lab Interpretation Abnormal (test code = 91690-1) [facility]iumRAPID DRUG SCREEN, [id number] 18:09:17 Test Item Value Reference Range Interpretation Comments BARBITURATE URINE (BEAKER) (test Negative Negative code = 725) BENZODIAZEPINE SCREEN URINE (BEAKER) Positive Negative A (test code = 726) COCAINE (METAB.) SCREEN (BEAKER) Negative Negative (test code = 1164) METHADONE SCREEN (BEAKER) (test code Negative Negative = 1436) OPIATE SCREEN URINE (BEAKER) (test Positive Negative A code = 734) CANNABINOID SCREEN URINE (BEAKER) Negative Negative (test code = 727) AMPH/METHAMPH SCREEN (BEAKER) (test Negative Negative code = 1438) PHENCYCLIDINE SCREEN URINE (BEAKER) Negative Negative (test code = 608) PH UA (BEAKER) (test code = 467) 6.0 5.0-8.0 DRUG CUTOFF CONC.Cocaine 300 ng/mL Cannabinoid 50 ng/mLBenzodiazepine 200 ng/mLBarbiturate 200 ng/mLPhencyclidine 25 ng/mLOpiate 300 ng/mLMethadone 300 ng/mLAmphetamine/ 1000 ng/mL MethamphetamineThisassay provides an unconfirmed qualitative test result for the clinical management of patients in emergency situations. Chain of custody not maintained. Some kvmf-mdn-coffcrs medications, as well as adulterants, may cause inaccurate results. Clinical correlation should be applied. A more comprehensive drug screen or confirmation of a detected drug may be performed upon request.Web Marketing Intern ID - [id number] 18:02:10 Test Item Value Reference Range Interpretation Comments PARTIAL THROMBOPLASTIN TIME 32.2 seconds 22.5-36.0 (BEAKER) (test code = 760) PROTHROMBIN TIME/[id number] 18:01:10 Test Item Value Reference Range Interpretation Comments PROTIME (BEAKER) (test code = 15.9 seconds 11.9-14.2 H 759) INR (BEAKER) (test code = 370) 1.35 <=5.90 RECOMMENDED COUMADIN/WARFARIN INR THERAPY RANGESSTANDARD DOSE: 2.0 - 3.0 Includes: PROPHYLAXIS for venous thrombosis, systemic embolization; TREATMENT for venous thrombosis and/or pulmonary embolus.HIGH RISK: Target INR is 2.5-3.5 for patients with mechanical heart valves.CBC W/PLT COUNT & AUTO [id number] 17:59:33 Test Item Value Reference Range Interpretation Comments WHITE BLOOD CELL COUNT (BEAKER) 17.5 K/ L 3.5-10.5 H (test code = 775) RED BLOOD CELL COUNT (BEAKER) 3.45 M/ L 4.63-6.08 L (test code = 761) HEMOGLOBIN (BEAKER) (test code = 10.2 GM/DL 13.7-17.5 L 410) HEMATOCRIT (BEAKER) (test code = 30.3 % 40.1-51.0 L 411) MEAN CORPUSCULAR VOLUME (BEAKER) 88 fL 79-92 (test code = 753) MEAN CORPUSCULAR HEMOGLOBIN 29.6 pg 25.7-32.2 (BEAKER) (test code = 751) MEAN CORPUSCULAR HEMOGLOBIN CONC 33.7 GM/DL 32.3-36.5 (BEAKER) (test code = 752) RED CELL DISTRIBUTION WIDTH 15.0 % 11.6-14.4 H (BEAKER) (test code = 412) PLATELET COUNT (BEAKER) (test 291 K/CU MM 150-450 code = 756) MEAN PLATELET VOLUME (BEAKER) 10.5 fL 9.4-12.4 (test code = 754) NUCLEATED RED BLOOD CELLS 0 /100 WBC 0-0 (BEAKER) (test code = 413) NEUTROPHILS RELATIVE PERCENT 90 % (BEAKER) (test code = 429) LYMPHOCYTES RELATIVE PERCENT 5 % (BEAKER) (test code = 430) MONOCYTES RELATIVE PERCENT 5 % (BEAKER) (test code = 431) EOSINOPHILS RELATIVE PERCENT 0 % (BEAKER) (test code = 432) BASOPHILS RELATIVE PERCENT 0 % (BEAKER) (test code = 437) NEUTROPHILS ABSOLUTE COUNT 15.65 K/ L 1.78-5.38 H (BEAKER) (test code = 670) LYMPHOCYTES ABSOLUTE COUNT 0.89 K/ L 1.32-3.57 L (BEAKER) (test code = 414) MONOCYTES ABSOLUTE COUNT (BEAKER) 0.79 K/ L 0.30-0.82 (test code = 415) EOSINOPHILS ABSOLUTE COUNT 0.00 K/ L 0.04-0.54 L (BEAKER) (test code = 416) BASOPHILS ABSOLUTE COUNT (BEAKER) 0.04 K/ L 0.01-0.08 (test code = 417) IMMATURE GRANULOCYTES-RELATIVE 0.70 % 0.00-1.00 PERCENT (BEAKER) (test code = 2801) Urinalysis Microscopic [id number] 17:56:23 Test Item Value Reference Range Interpretation Comments RBC, UA (test 0 See_Comment [Automated me ssage] code = 50158-2) The system [employer] generated this result transmitted ref erence range: /HPF. Th e reference range was not used to int erpret this result as normal/abnormal . WBC, UA (test 1 See_Comment [Automated me ssage] code = 5821-4) The system [employer] generated this result transmitted ref erence range: /HPF. Th e reference range was not used to int erpret this result as normal/abnormal . Bacteria, UA Rare (test code = 16706-1) MICHEAL (test code Web Marketing Intern ID - tech = MICHEAL) [facility] [id number] 17:56:23 Test Item Value Reference Range Interpretation Comments RBC, UA (test 0 See_Comment [Automated me ssage] code = 92643-5) The system [employer] generated this result transmitted ref erence range: /HPF. Th e reference range was not used to int erpret this result as normal/abnormal . WBC, UA (test 1 See_Comment [Automated me ssage] code = 5821-4) The system [employer] generated this result transmitted ref erence range: /HPF. Th e reference range was not used to int erpret this result as normal/abnormal . Bacteria, UA Rare (test code = 73944-5) MICHEAL (test code [employer] Intern ID - tech = MICHEAL) [facility] [id number] 17:56:23 Test Item Value Reference Range Interpretation Comments RBC UA (BEAKER) (test code = 519) 0 /HPF WBC UA (BEAKER) (test code = 520) 1 /HPF BACTERIA (BEAKER) (test code = 517) Rare [employer] Intern ID - techUrinalysis with Microscopic If [id number] 17:54:17 Test Item Value Reference Range Interpretation Comments Color, UA (test code = Light Yellow 5778-6) Clarity, UA (test code = Clear 5767-9) Specific [place], UA (test 1.014 1.001-1.035 code = 5811-5) pH, UA (test code = 6.0 5.0-8.0 5803-2) Protein, UA (test code = 300 mg/dL Negative A 10175-3) Glucose, UA (test code = 50 mg/dL Negative A 365) Ketones, UA (test code = Negative Negative 2514-8) Bilirubin, UA (test code = Negative Negative 91395-1) Blood, UA (test code = Trace Negative A 86074-9) Nitrite, UA (test code = Negative Negative 5802-4) Leukocytes, UA (test code Negative Negative = 5799-2) Urobilinogen, UA (test 0.2 0.2-1.0 code = 87175-4) Specimen Source (test code = 2795) MICHEAL (test code = MICHEAL) [employer] Intern ID - [auto] Lab Interpretation (test Abnormal code = 50688-7) [facility] If [id number] 17:54:17 Test Item Value Reference Range Interpretation Comments Color, UA (test code = Light Yellow 5778-6) Clarity, UA (test code = Clear 5767-9) Specific [place], UA (test 1.014 1.001-1.035 code = 5811-5) pH, UA (test code = 6.0 5.0-8.0 5803-2) Protein, UA (test code = 300 mg/dL Negative A 41007-6) Glucose, UA (test code = 50 mg/dL Negative A 365) Ketones, UA (test code = Negative Negative 2514-8) Bilirubin, UA (test code = Negative Negative 04396-2) Blood, UA (test code = Trace Negative A 44721-5) Nitrite, UA (test code = Negative Negative 5802-4) Leukocytes, UA (test code Negative Negative = 5799-2) Urobilinogen, UA (test 0.2 0.2-1.0 code = 47801-4) Specimen Source (test code = 2795) MICHEAL (test code = MICHEAL) Web Marketing Intern ID - [auto] Lab Interpretation (test Abnormal code = 32686-6) [facility] WITH MICROSCOPIC IF [id number] 17:54:17 Test Item Value Reference Range Interpretation Comments COLOR (BEAKER) (test code = 470) Light Yellow CLARITY (BEAKER) (test code = Clear 469) SPECIFIC GRAVITY UA (BEAKER) 1.014 1.001-1.035 (test code = 468) PH UA (BEAKER) (test code = 467) 6.0 5.0-8.0 PROTEIN UA (BEAKER) (test code = 300 mg/dL Negative A 464) GLUCOSE UA (BEAKER) (test code = 50 mg/dL Negative A 365) KETONES UA (BEAKER) (test code = Negative Negative 371) BILIRUBIN UA (BEAKER) (test code Negative Negative = 462) BLOOD UA (BEAKER) (test code = Trace Negative A 461) NITRITE UA (BEAKER) (test code = Negative Negative 465) LEUKOCYTE ESTERASE UA (BEAKER) Negative Negative (test code = 466) UROBILINOGEN UA (BEAKER) (test 0.2 0.2-1.0 code = 463) SOURCE(BEAKER) (test code = 2795) Web Marketing Intern ID - [auto]CALCIUM, [id number] 17:49:45 Test Item Value Reference Range Interpretation Comments CALCIUM IONIZED (BEAKER) (test 1.11 mmol/L 1.12-1.27 L code = 698) PH, BLOOD (BEAKER) (test code = 7.40 1810) Troponin [id number] 03:31:00 Test Item Value Reference Range Interpretation Comments TROPONIN I (test 0.009 ng/mL See_Comment [Automated code = 0757909245) message] The system which generated this result transmitted reference range : <=0.034. The reference range was not used to interpret this result as normal/abnormal . MICHEAL (test code = Equal or Less than MICHEAL) 0.034 ng/ml---Normal ?Note: Cardiac troponin begins to [...] patient's use of biotin. ? Lab Interpretation Normal (test code = 15051-8) [facility] (NA, K, CL, CO2, GLUCOSE, BUN, CREATININE, CA)2019-10-16 03:21:00 Test Item Value Reference Range Interpretation Comments NA (test code = 130 mmol/L 135-145 L 7908656528) K (test code = 3.6 mmol/L 3.5-5 2730255134) CL (test code = 90 mmol/L 98-108 L 4475596653) CO2 TOTAL (test code = 27 mmol/L 23-31 8376646926) AGAP (test code = 2-16 3998107203) BUN (test code = 23 mg/dL 7-23 8807031915) GLUCOSE (test code = 124 mg/dL 70-110 H 6492482255) CREATININE (test code = 1.61 mg/dL 0.6-1.25 H 4354397139) CALCIUM (test code = 9.6 mg/dL 8.6-10.6 0260666038) eGFR Calculation mL/min/1.73m2 (Non-) (test code = 0315784904) eGFR Calculation mL/min/1.73m2 () (test code = 6698467798) MICHEAL (test code = MICHEAL) Association of [...] tests). Lab Interpretation Abnormal (test code = 71547-1) [facility] [id number] 03:15:31 No acute cardiopulmonary process. RL: 6200 Patient name: KD CAMPBELLB: 1955 64 years EXAMINATION: XR CHEST 1 VW Ordering Physician: VEE HARRY CLINICAL HISTORY:chest pain COMPARISON:08/22/2019 TECHNIQUE:Single frontal viewof the chest was performed. FINDINGS:Normal lung volumes. No focal infiltrate or consolidation. No effusion orpneumothorax. Heart size is normal without edema. Normal aortic contours.No acute osseous abnormality. [facility], Radiant Results Inft User - 10/15/2019 9:16 PM CSTPatient name: KD BRUMFIELDSteven: 1955 64 years EXAMINATION: XR CHEST 1 VWOrdering Physician: VEE HARRY CLINICAL HISTORY:chest pain COMPARISON:08/22/2019TECHNIQUE:Single frontal view of the chest was performed.FINDINGS:Normal lung volumes. No focal infiltrate or consolidation. No effusion orpneumothorax. Heart size is normal without edema. Normal aortic contours.No acute osseous abnormality.IMPRESSIONNo acute cardiopulmonary process.RL: [facility] 2019-10-16 02:47:00 Test Item Value Reference Range Interpretation Comments WBC (test code = See_Comment [Automated 8590-2) message] The sy stem which generated this result transmitted reference range : 4.20 - 10.70 10*3/?L. The reference range was not used to interpret this result as normal/abnormal . RBC (test code = See_Comment [Automated 789-8) message] The sy stem which generated this [...] RDW-SD (test code = 41.3 fL 38.5-51.6 43536-2) RDW-CV (test code = 12.8 % 12.1-15.4 788-0) PLT (test code = See_Comment [Automated 777-3) message] The sy stem which generated this result transmitted reference range : 150 - 328 10*3/ ?L. The reference r radha was not used to interpret this result as normal/abnormal . MPV (test code = 10.7 fL 9.8-13 64118-1) NRBC/100 WBC (test See_Comment [Automat ed code = 8223570183) message] The system which generated this result transmitted reference range : 0.0 - 10.0 /100 WBCs. The refer ence range was not u sed to interpret th is result as normal/abnormal . NRBC x10^3 (test code <0.01 See_Comment [Auto mated = 5173362115) message] The s ystem which generated this result transmitted reference range : 10*3/?L. The reference range was not used to interpret this result as normal/abnormal . GRAN MAT (NEUT) % 67.9 % (test code = 770-8) IMM GRAN % (test code 0.80 % = 2668691913) LYMPH % (test code = 19.1 % 736-9) MONO % (test code = 7.5 % 5905-5) EOS % (test code = 4.0 % 713-8) BASO % (test code = 0.7 % 706-2) GRAN MAT x10^3(ANC) 7.22 10*3/uL 1.99-6.95 H (test code = 8209152237) IMM GRAN x10^3 (test 0.08 10*3/uL 0-0.06 H code = 8691841855) LYMPH x10^3 (test code 2.02 10*3/uL 1.09-3.23 = 731-0) MONO x10^3 (test code 0.79 10*3/uL 0.36-1.02 = 742-7) EOS x10^3 (test code = 0.42 10*3/uL 0.06-0.53 711-2) BASO x10^3 (test code 0.07 10*3/uL 0.01-0.09 = 704-7) Lab Interpretation Abnormal (test code = 85095-9) [facility]
[2023-07-28 17:50] LABS: Absolute Lymphocytes (CBC) 2.8 K/uL (0.7-4.9); Hematocrit 32.3 % (39.6-49.0); Lymphocytes % 26.2 % (15.3-44.8); MCV 91.7 fL (80-100); MPV 7.9 fL (7.6-11.3); Platelets 216 thou/uL (152-406); RBC Red Blood Cell Count 3.52 M/uL (4.33-5.43)
[2023-07-28] MEDS ORDERED: dilTIAZem HCL 25 MG/5 ML VIAL IV ONE ×3 (18:06→21:27)
[2023-07-28] MEDS ORDERED: NA CHLORIDE 0.9% 1,000 ML ONE (18:06)
[2023-07-28 18:07] LABS: Magnesium 2.3 mg/dL (1.6-2.4); Potassium 4.3 mEq/L (3.5-5.1)
--- NOTE | 2023-07-28 18:14 | RAD REPORT ---
EXAM DESCRIPTION: Samantha Single View07/28/2023 6:05 pm CLINICAL HISTORY: Chest pain COMPARISON: December 2022 FINDINGS: The lungs appear clear of acute infiltrate. The heart is mildly enlarged IMPRESSION: No acute abnormalities displayed
--- NOTE | 2023-07-28 18:17 | RAD REPORT ---
EXAM DESCRIPTION: CT - Head Brain Wo Cont - 07/28/2023 6:05 pm CLINICAL HISTORY: Syncope COMPARISON: December 2022 TECHNIQUE: Computed axial tomography of the head was obtained. IV contrast was not requested. All CT scans are performed using dose optimization technique as appropriate and may include automated exposure control or mA/KV adjustment according to patient size. FINDINGS: Left internal capsule bleed has resolved The ventricles are normal in caliber No extra-axial fluid collection is noted. Mild to moderate low-density areas within periventricular, deep and subcortical white matter likely r epresent ischemic changes secondary to small vessel disease. Fluid within the sinuses/ mastoids is not seen. IMPRESSION: No acute intracranial abnormality is seen If patient's symptoms persist MRI of the brain would be recommended
[2023-07-28 19:21] LABS: Specific Gravity 1.006 (1.005-1.030); Urine Bacteria <20 /HPF (<20); Urine Bilirubin NEGATIVE (Negative); Urine Blood 2+ (Negative); Urine Clarity Extremely Turbid (Clear); Urine Color Colorless (Yellow); Urine Glucose NEGATIVE (Negative); Urine Protein TRACE (Negative); Urine RBC <5 /HPF (None Seen); Urine Urobilinogen Normal (Normal); Urine WBC Clump Rare /HPF (None Seen)
[2023-07-28 19:35] LABS: Barbiturates NEGATIVE (NEGATIVE); Benzodiazepines NEGATIVE (NEGATIVE); Cocaine NEGATIVE (NEGATIVE); METHAMPHETAM NEGATIVE (NEGATIVE); Opiates NEGATIVE (NEGATIVE); Phencyclidine NEGATIVE (NEGATIVE); THC Cannibis NEGATIVE (NEGATIVE)
[2023-07-28 19:39] LABS: Methadone ND (NEGATIVE)
[2023-07-28] MEDS ORDERED: NIFEdipine 10 MG CAP ONE (20:53)
[2023-07-28] MEDS ORDERED: CEFTRIAXONE 1000 MG/VIAL ONE (21:09)
[2023-07-28] MEDS ORDERED: NA CHLORIDE 0.9% 100 ML ONE (21:10)
--- NOTE | 2023-07-28 22:20 | EDPHYS ---
Physician Documentation [facility] Name: Kd Campbell Age: 68 yrs Sex: Male : 1955 Arrival Date: 07/28/2023 Time: 16:49 Bed 6 Private MD: ED Physician Tiago Major HPI: 07/28 17:45 This 68 yrs old Male presents to ER via Ambulatory with complaints of Blood cp Pressure Problem, Allergic Reaction. 17:45 The patient presents with itching. cp 17:45 Possible causes: blood pressure medication: nifedipine. cp 17:45 At home the patient or guardian has treated the symptoms with nothing. Severity of cp symptoms: in the emergency department the symptoms are unchanged. Historical: - Allergies: 17:28 bee venom (honey bee); nj1 17:28 Clonidine; nj1 17:28 Depakote; nj1 17:28 Lexapro; nj1 17:28 PENICILLINS; nj1 17:28 Wellbutrin; nj1 17:28 Hydralazine; nj1 - PMHx: 17:28 Anxiety; Hypertension; MANIC DEPRESSION; pnemonia; nj1 - Immunization history:: Client reports receiving the 1st dose of the Covid vaccine. - Social history:: Smoking status: Patient reports the use of cigarette tobacco products, smokes one-half pack cigarettes per day. ROS: 07/29 20:09 Constitutional: Negative for fever, chills, and weight loss, sp4 20:09 Cardiovascular: Negative for chest pain, cp 20:09 Respiratory: Negative for cough, wheezing, 20:09 Abdomen/GI: Negative for vomiting, diarrhea, constipation, 20:09 ENT: Negative for drainage from ear(s), ear pain, sore throat, difficulty swallowing, cp difficulty handling secretions, 20:09 Neuro: Negative for altered mental status, syncope, 20:09 All other systems are negative, Exam: 07/28 17:35 ECG was reviewed by the Attending Physician. cp 07/29 20:09 Constitutional: This is a well developed, well nourished patient who is awake, alert, sp4 and in no acute distress. 20:09 Head/Face: Normocephalic, atraumatic. Eyes: Pupils equal round and reactive to light, sp4 extra-ocular motions intact. Lids and lashes normal. Conjunctiva and sclera are not injected. Cornea within normal limits. Periorbital areas with no swelling, redness, or edema. ENT: Nares patent. No nasal discharge, no septal abnormalities noted. Tympanic membranes are normal and external auditory canals are clear. Oropharynx with no redness, swelling, or masses, exudates, or evidence of obstruction, uvula midline. Mucous membranes moist. Neck: Trachea midline, no thyromegaly or masses palpated, and no cervical lymphadenopathy. Supple, full range of motion without nuchal rigidity, or vertebral point tenderness. Chest/axilla: Normal chest wall appearance and motion. Nontender with no deformity. No lesions are appreciated. Cardiovascular: Regular rate and rhythm with a normal S1 and S2. No gallops, murmurs, or rubs. Normal PMI, no JVD. No pulse deficits. Respiratory: Lungs have equal breath sounds bilaterally, clear to auscultation and percussion. No rales, rhonchi or wheezes noted. No increased work of breathing, no retractions or nasal flaring. Abdomen/GI: Soft, non-tender, with normal bowel sounds. No distension or tympany. No guarding or rebound. No evidence of tenderness throughout. Back: No spinal tenderness. No costovertebral tenderness. Skin: Warm, dry with normal turgor. Normal color with no rashes, no lesions, and no evidence of cellulitis. MS/ Extremity: Pulses equal, no cyanosis. Neurovascular intact. Full, normal range of motion. Neuro: Awake and alert, GCS 15, oriented to person, place, time, and situation. Cranial nerves II-XII grossly intact. Motor strength 5/5 in all extremities. Sensory grossly intact. Psych: Awake, alert, with orientation to person, place and time. Behavior, mood, and affect are within normal limits Vital Signs: 07/28 17:15 BP 196 / 84; Pulse 57; Resp 17; Pulse Ox 99% ; rs5 17:19 BP 234 / 94; Pulse 61; Resp 16; Temp 98.4; Pulse Ox 99% on R/A; Weight 81.65 kg; Height nj1 5 ft. 6 in. ; Pain 0/10; 17:45 BP 206 / 77; Pulse 55; Resp 17; Pulse Ox 99% on R/A; rs5 18:20 BP 183 / 72; Pulse 50; Resp 16 S; Pulse Ox 98% on R/A; aa5 19:01 BP 186 / 73; Pulse 50; Resp 18; Pulse Ox 98% on R/A; rs5 20:45 BP 223 / 90; Pulse 53; Resp 16; Pulse Ox 100% on R/A; jb4 21:15 BP 195 / 89; Pulse 23; Resp 18; Pulse Ox 97% ; jb4 21:30 BP 201 / 72; Pulse 50; Resp 18; Pulse Ox 98% on R/A; jb4 22:00 BP 213 / 84; Pulse 50; Resp 19; Pulse Ox 98% on R/A; jb4 22:15 BP 200 / 74; Pulse 49; Resp 17; Pulse Ox 98% on R/A; jb4 22:30 BP 192 / 70; Pulse 52; Resp 16; Pulse Ox 98% on R/A; jb4 22:45 BP 202 / 71; Pulse 53; Resp 16; Pulse Ox 97% ; jb4 23:00 BP 190 / 69; Pulse 57; Resp 16; Pulse Ox 98% on R/A; jb4 23:15 BP 200 / 71; Pulse 48; Resp 15; Pulse Ox 98% on R/A; jb4 23:30 BP 174 / 68; Pulse 53; Resp 16; Pulse Ox 98% on R/A; jb4 23:45 BP 181 / 67; Pulse 48; Resp 16; Pulse Ox 97% on R/A; jb4 07/29 00:00 BP 174 / 68; Pulse 51; Resp 15; Pulse Ox 97% on R/A; jb4 00:15 BP 169 / 68; Pulse 49; Resp 16; Pulse Ox 97% on R/A; jb4 00:30 BP 173 / 70; Pulse 52; Resp 16; Pulse Ox 97% on R/A; jb4 00:45 BP 186 / 67; Pulse 56; Resp 16; Pulse Ox 97% on R/A; jb4 01:00 BP 180 / 71; Pulse 47; Resp 18; Pulse Ox 97% on R/A; jb4 01:15 BP 183 / 66; Pulse 48; Resp 17; Pulse Ox 98% on R/A; jb4 07/28 17:19 Body Mass Index 29.05 (81.65 kg, 167.64 cm) nj1 17:19 Pain Scale: Adult [facility] 07/28 21:30 DILTIAZEM DRIP RATE CHANGED TO 10mg/hr jb4 22:00 Diltiazem increased to 15mg/hr jb4 MDM: 17:17 Patient medically screened. 18:00 Differential diagnosis: anaphylaxis, angioedema, hypertensive urgency, hypertensive cp emergency. 07/29 20:08 Data reviewed: vital signs, nurses notes, old medical records, lab test result(s), EKG, sp4 radiologic studies. 07/28 17:17 Order name: Basic Metabolic Panel; Complete Time: 18:24 07/28 18:24 Interpretation: Normal except: NA 134; BUN 60; CRE 3.20; GFR 21. cp 07/28 17:17 Order name: CBC with Diff; Complete Time: 18:24 07/28 18:24 Interpretation: Normal except: RBC 3.52; HGB 11.4; HCT 32.3; EOSINOPHIL % 6.2; EOSA 0.7. 07/28 17:17 Order name: Magnesium; Complete Time: 18:24 07/28 17:17 Order name: NT PRO-BNP; Complete Time: 18:24 07/28 18:34 Interpretation: Reviewed. 07/28 17:17 Order name: Troponin HS; Complete Time: 18:24 07/28 17:47 Order name: UDS; Complete Time: 19:39 07/28 17:47 Order name: Urinalysis W/Microscopic; Complete Time: 19:38 07/28 19:38 Interpretation: Normal except: [facility] Extremely Turbid; UBLD 2+; UPROT TRACE; UESTR 500; cp UWBC >50. 07/28 19:39 Order name: Lactate w/ 2H reflex if indic.; Complete Time: 20:08 07/28 19:39 Order name: Blood Culture Adult (2) 07/28 19:41 Order name: Urine Culture EDNY 07/28 22:31 Order name: CBC with Automated Diff EDNY 07/28 22:31 Order name: CBC with Automated Diff; Complete Time: 20:08 EDMS 07/28 22:31 Order name: Comprehensive Metabolic Panel EDNY 07/28 22:31 Order name: Comprehensive Metabolic Panel; Complete Time: 20:08 EDMS 07/30 05:56 Order name: CBC with Automated Diff EDNY 07/30 06:18 Order name: Cortisol EDMS 07/30 06:28 Order name: Comprehensive Metabolic Panel EDNY 07/30 06:28 Order name: Phosphorus EDNY 07/30 06:28 Order name: Troponin High Sensitivity EDNY 07/30 06:28 Order name: NT PRO-BNP EDNY 07/30 06:28 Order name: Lipid Profile EDNY 07/30 06:28 Order name: Magnesium EDNY 07/30 06:28 Order name: Iron EDNY 07/30 06:28 Order name: Vitamin B12 Level EDNY 07/28 17:17 Order name: XRAY Chest (1 view); Complete Time: 18:24 cp 07/28 18:24 Interpretation: Report review. cp 07/28 17:47 Order name: CT Head Brain wo Cont; Complete Time: 18:24 cp 07/28 20:10 Interpretation: Report reviewed. cp 07/30 07:55 Order name: US EDNY 07/30 09:17 Order name: MRI EDNY 07/28 17:17 Order name: EKG; Complete Time: 17:18 cp 07/28 17:17 Order name: Cardiac monitoring; Complete Time: 17:44 cp 07/28 17:17 Order name: EKG - Nurse/Tech; Complete Time: 17:43 cp 07/28 17:17 Order name: IV Saline Lock; Complete Time: 17:44 cp 07/28 17:17 Order name: Labs collected and sent; Complete Time: 17:44 cp 07/28 17:17 Order name: O2 Per Protocol; Complete Time: 17:44 cp 07/28 17:17 Order name: O2 Sat Monitoring; Complete Time: 17:44 cp EC/29 17:35 Rate is 58 beats/min. Rhythm is regular. WV interval is normal. QRS interval is normal. cp QT interval is normal. T waves are Inverted in leads aVL, aVR. Interpreted by me. Reviewed by me. Administered Medications: 07/29 01:09 Discontinued: diltiazem 5 mg/hr IV at calculated rate Per protocol; (standard dilution jb4 125 mg diltiazem mixed in 125 mL NS; final concentration 1mg/mL). Recommended max rate 15 mg/hr; Titrate 5 mg/hr as often as every 15 minutes to achieve goal (see titration policy); Goal parameter 07/28 17:50 Drug: Diltiazem IVP 20 mg IVP once; Over 2 Minutes Route: IVP; Site: right antecubital; rs5 18:06 Follow up: Response: No adverse reaction; Blood pressure is lowered rs5 17:50 Drug: NS 0.9% IV 500 ml IV at bolus once Route: IV; Rate: bolus; Site: right rs5 antecubital; 18:07 Follow up: Response: No adverse reaction rs5 17:50 Drug: NS 0.9% IV 500 ml IV at 100 ml/hr continuous Route: IV; Rate: 100 ml/hr; Site: rs5 right antecubital; 18:07 Follow up: Response: No adverse reaction rs5 19:49 Not Given (Physician Discretion): [id number] mg PO once cp 20:30 Not Given (Duplicate Order): [id number] mg PO once sp4 20:48 Not Given (Patient Refused; Pt reports allergy to medicationn): mg PO once jb4 21:08 Drug: Rocephin IV 1 grams IV at calculated rate once; Given slow IV push per pharmacy jb4 instructions Route: IV; Rate: calculated rate; Site: right antecubital; 21:24 Drug: Diltiazem IV 5 mg/hr IV at calculated rate Per protocol; (standard dilution 125 jb4 mg diltiazem mixed in 125 mL NS; final concentration 1mg/mL). Recommended max rate 15 mg/hr; Titrate 5 mg/hr as often as every 15 minutes to achieve goal (see titration policy); Goal parameter Route: IV; Rate: calculated rate; Site: right antecubital; 07/29 01:09 Follow up: Response: No adverse reaction; Marked relief of symptoms; IV Status: Order jb4 to discontinue infusion; Infusion stopped per Dr. Leroy 07/28 23:22 Drug: Nitroglycerin Transdermal Ointment 2 % 1 inches Transdermal once Route: jb4 Transdermal; Site: anterior chest wall; Disposition: 07/29 20:07 Co-signature as Attending Physician, Tiago Major MD I agree with the assessment sp4 and plan of care. I reviewed the patient's care provided by Advanced Practice Provider \T\ agree w/ the diagnosis \T\ care plan. I personally saw the pt \T\ performed a substantive portion of the visit, incldng all aspects of the (History/Exam/Medical Decision Making). Disposition Summary: 07/28/23 22:19 Hospitalization Ordered Notes: Hospitalization Status: Inpatient Admission cp Provider: Golden Barraza cp Condition: Stable cp Problem: chronic cp Symptoms: have improved cp Bed/Room Type: Standard cp Location: Telemetry/MedSurg (Inpatient)(07/30/23 17:26) ja1 Room Assignment: 207(07/30/23 17:26) ja Diagnosis - Hypertensive urgency cp - Chronic kidney disease, unspecified cp Forms: - Medication Reconciliation Form cp - SBAR form cp - Leadership Thank You Letter cp Signatures: Dispatcher [employer] EDMS Jameson Pennington PA PA cp Seng Alatorre, RN RN jb4 Jaxon Perry RN RN ja1 Jossy Padilla RN RN eb1 Abelardo Cotto RN RN rs5 Tiago Major MD MD sp4 Sarina Gan RN RN nj1 Corrections: (The following items were deleted from the chart) 00:17 07/28 22:19 Intensive Care Unit cp eb1 07/29 00:17 07/28 22:19 cp eb1 07/30 16:25 07/29 20:09 All other systems are negative, sp4 cp 07/30 16:26 07/29 20:07 This 68 yrs old Male presents to ER via Ambulatory with cp complaints of Blood Pressure Problem, Allergic Reaction. sp4 07/30 17:26 07/29 00:17 [facility] ER HOLD eb1 ja1 07/30 17:26 07/29 00:17 ERHOLD- eb1 ja1
--- NOTE | 2023-07-28 22:20 | ER ---
Nurse's Notes [facility] Name: Kd Campbell Age: 68 yrs Sex: Male : 1955 Arrival Date: 07/28/2023 Time: 16:49 Bed 6 Private MD: Diagnosis: Hypertensive urgency;Chronic kidney disease, unspecified Presentation: 07/28 17:19 Chief complaint: Patient states: took a nitro to lower his blood pressure which went nj low "too fast" making him pass out. 17:19 Coronavirus screen: Vaccine status: Patient reports receiving the 1st dose of the Covid nj1 vaccine. Ebola Screen: Patient denies travel to an Ebola-affected area in the 21 days before illness onset. Initial Sepsis Screen: Does the patient meet any 2 criteria? No. Patient's initial sepsis screen is negative. Does the patient have a suspected source of infection? No. Patient's initial sepsis screen is negative. Risk Assessment: Do you want to hurt yourself or someone else? Patient reports no desire to harm self or others. Onset of symptoms was July 28, 2023. 17:19 Method Of Arrival: Ambulatory [facility] 17:19 Acuity: VOLODYMYR 3 nj1 Historical: - Allergies: 17:28 bee venom (honey bee); nj1 17:28 Clonidine; nj1 17:28 Depakote; nj1 17:28 Lexapro; nj1 17:28 PENICILLINS; nj1 17:28 Wellbutrin; nj1 17:28 Hydralazine; nj1 - PMHx: 17:28 Anxiety; Hypertension; MANIC DEPRESSION; pnemonia; nj1 - Immunization history:: Client reports receiving the 1st dose of the Covid vaccine. - Social history:: Smoking status: Patient reports the use of cigarette tobacco products, smokes one-half pack cigarettes per day. Assessment: 17:11 General: Appears in no apparent distress. comfortable, Behavior is calm, cooperative. rs5 17:11 Pain: Denies pain. Neuro: Level of Consciousness is awake, alert, obeys commands, rs5 Oriented to person, place, time, situation. Cardiovascular: Heart tones S1 S2 present Rhythm is regular. Respiratory: Airway is patent Respiratory effort is even, unlabored, Breath sounds are clear bilaterally. GI: Abdomen is round non-distended, Bowel sounds present X 4 quads. Abd is soft and non tender X 4 quads. : No signs and/or symptoms were reported regarding the genitourinary system. EENT: No signs and/or symptoms were reported regarding the EENT system. Derm: Skin is intact, Skin is pink, warm \\T\\ dry. Musculoskeletal: Range of motion: intact in all extremities. 17:11 Reassessment: Provider notified of pt's elevated pressure. rs5 17:45 Cardiovascular: Denies chest pain, Rhythm is regular. Respiratory: Airway is patent rs5 Respiratory effort is even, unlabored. 18:00 Reassessment: Patient and/or family updated on plan of care and expected duration. Pain rs5 level reassessed. Patient is alert, oriented x 3, equal unlabored respirations, skin warm/dry/pink. 18:40 Cardiovascular: Denies chest pain, Rhythm is regular. Respiratory: Airway is patent rs5 Respiratory effort is even, unlabored. 18:40 Reassessment: Patient and/or family updated on plan of care and expected duration. Pain rs5 level reassessed. Patient is alert, oriented x 3, equal unlabored respirations, skin warm/dry/pink. 19:15 Reassessment: Patient appears in no apparent distress at this time. Patient and/or jb4 family updated on plan of care and expected duration. Pain level reassessed. Patient is alert, oriented x 3, equal unlabored respirations, skin warm/dry/pink. 20:15 Reassessment: Patient appears in no apparent distress at this time. Patient and/or jb4 family updated on plan of care and expected duration. Pain level reassessed. Patient is alert, oriented x 3, equal unlabored respirations, skin warm/dry/pink. 21:39 Reassessment: Patient appears in no apparent distress at this time. Patient and/or jb4 family updated on plan of care and expected duration. Pain level reassessed. Patient is alert, oriented x 3, equal unlabored respirations, skin warm/dry/pink. 22:31 Reassessment: Patient appears in no apparent distress at this time. Patient and/or jb4 family updated on plan of care and expected duration. Pain level reassessed. Patient is alert, oriented x 3, equal unlabored respirations, skin warm/dry/pink. Informed ER provider Diltiazem drip is at the recommended max per order. No new order received. 23:30 Reassessment: Patient appears in no apparent distress at this time. Patient and/or jb4 family updated on plan of care and expected duration. Pain level reassessed. Patient is alert, oriented x 3, equal unlabored respirations, skin warm/dry/pink. 07/29 00:30 Reassessment: Patient appears in no apparent distress at this time. Patient and/or jb4 family updated on plan of care and expected duration. Pain level reassessed. Patient is alert, oriented x 3, equal unlabored respirations, skin warm/dry/pink. Vital Signs: 07/28 17:15 BP 196 / 84; Pulse 57; Resp 17; Pulse Ox 99% ; rs5 17:19 BP 234 / 94; Pulse 61; Resp 16; Temp 98.4; Pulse Ox 99% on R/A; Weight 81.65 kg; Height nj1 5 ft. 6 in. ; Pain 0/10; 17:45 BP 206 / 77; Pulse 55; Resp 17; Pulse Ox 99% on R/A; rs5 18:20 BP 183 / 72; Pulse 50; Resp 16 S; Pulse Ox 98% on R/A; aa5 19:01 BP 186 / 73; Pulse 50; Resp 18; Pulse Ox 98% on R/A; rs5 20:45 BP 223 / 90; Pulse 53; Resp 16; Pulse Ox 100% on R/A; jb4 21:15 BP 195 / 89; Pulse 23; Resp 18; Pulse Ox 97% ; jb4 21:30 BP 201 / 72; Pulse 50; Resp 18; Pulse Ox 98% on R/A; jb4 22:00 BP 213 / 84; Pulse 50; Resp 19; Pulse Ox 98% on R/A; jb4 22:15 BP 200 / 74; Pulse 49; Resp 17; Pulse Ox 98% on R/A; jb4 22:30 BP 192 / 70; Pulse 52; Resp 16; Pulse Ox 98% on R/A; jb4 22:45 BP 202 / 71; Pulse 53; Resp 16; Pulse Ox 97% ; jb4 23:00 BP 190 / 69; Pulse 57; Resp 16; Pulse Ox 98% on R/A; jb4 23:15 BP 200 / 71; Pulse 48; Resp 15; Pulse Ox 98% on R/A; jb4 23:30 BP 174 / 68; Pulse 53; Resp 16; Pulse Ox 98% on R/A; jb4 23:45 BP 181 / 67; Pulse 48; Resp 16; Pulse Ox 97% on R/A; jb4 07/29 00:00 BP 174 / 68; Pulse 51; Resp 15; Pulse Ox 97% on R/A; jb4 00:15 BP 169 / 68; Pulse 49; Resp 16; Pulse Ox 97% on R/A; jb4 00:30 BP 173 / 70; Pulse 52; Resp 16; Pulse Ox 97% on R/A; jb4 00:45 BP 186 / 67; Pulse 56; Resp 16; Pulse Ox 97% on R/A; jb4 01:00 BP 180 / 71; Pulse 47; Resp 18; Pulse Ox 97% on R/A; jb4 01:15 BP 183 / 66; Pulse 48; Resp 17; Pulse Ox 98% on R/A; jb4 07/28 17:19 Body Mass Index 29.05 (81.65 kg, 167.64 cm) nj1 17:19 Pain Scale: Adult [facility] 07/28 21:30 DILTIAZEM DRIP RATE CHANGED TO 10mg/hr jb4 22:00 Diltiazem increased to 15mg/hr jb4 ED Course: 16:52 Patient arrived in ED. im 17:04 Jameson Pennington PA is PHCP. cp 17:04 Vladimir Kinney MD is Attending Physician. cp 17:11 Abelardo Cotto, RN is Primary Nurse. rs5 17:15 Inserted saline lock: 20 gauge in right antecubital area, using aseptic technique. rs5 Blood collected. 17:28 Triage completed. nj1 17:29 Arm band placed on. nj1 18:06 XRAY Chest (1 view) In Process Unspecified. EDMS 18:06 CT Head Brain wo Cont In Process Unspecified. EDMS 19:42 Tiago Major MD is Attending Physician. cp 22:16 Golden Barraza MD is Hospitalizing Provider. cp 07/29 09:22 Diet: Patient given water. bd Administered Medications: 01:09 Discontinued: diltiazem 5 mg/hr IV at calculated rate Per protocol; (standard dilution jb4 125 mg diltiazem mixed in 125 mL NS; final concentration 1mg/mL). Recommended max rate 15 mg/hr; Titrate 5 mg/hr as often as every 15 minutes to achieve goal (see titration policy); Goal parameter 07/28 17:50 Drug: Diltiazem IVP 20 mg IVP once; Over 2 Minutes Route: IVP; Site: right antecubital; rs5 18:06 Follow up: Response: No adverse reaction; Blood pressure is lowered rs5 17:50 Drug: NS 0.9% IV 500 ml IV at bolus once Route: IV; Rate: bolus; Site: right rs5 antecubital; 18:07 Follow up: Response: No adverse reaction rs5 17:50 Drug: NS 0.9% IV 500 ml IV at 100 ml/hr continuous Route: IV; Rate: 100 ml/hr; Site: rs5 right antecubital; 18:07 Follow up: Response: No adverse reaction rs5 19:49 Not Given (Physician Discretion): [id number] mg PO once cp 20:30 Not Given (Duplicate Order): [id number] mg PO once sp4 20:48 Not Given (Patient Refused; Pt reports allergy to medicationn): mg PO once jb4 21:08 Drug: Rocephin IV 1 grams IV at calculated rate once; Given slow IV push per pharmacy jb4 instructions Route: IV; Rate: calculated rate; Site: right antecubital; 21:24 Drug: Diltiazem IV 5 mg/hr IV at calculated rate Per protocol; (standard dilution 125 jb4 mg diltiazem mixed in 125 mL NS; final concentration 1mg/mL). Recommended max rate 15 mg/hr; Titrate 5 mg/hr as often as every 15 minutes to achieve goal (see titration policy); Goal parameter Route: IV; Rate: calculated rate; Site: right antecubital; 07/29 01:09 Follow up: Response: No adverse reaction; Marked relief of symptoms; IV Status: Order jb4 to discontinue infusion; Infusion stopped per Dr. Leroy 07/28 23:22 Drug: Nitroglycerin Transdermal Ointment 2 % 1 inches Transdermal once Route: jb4 Transdermal; Site: anterior chest wall; Intake: Outcome: 22:19 Decision to Hospitalize by Provider. cp 07/30 17:53 Patient left the ED. mb9 Signatures: Dispatcher [employer] EDMS Kasia Fried Audri, RN RN aa5 Jameson Pennington PA PA cp Bryson, James, RN RN jb4 Kristie rBidges, RN RN mb9 Abelardo Cotto RN RN rs5 Sarina Gan, MATTHEW RN nj1 Latanya Hodges Sergey MD sp4 Corrections: (The following items were deleted from the chart) 07/28 19:07 19:06 Reassessment: Patient and/or family updated on plan of care and expected rs5 duration. Pain level reassessed. Patient is alert, oriented x 3, equal unlabored respirations, skin warm/dry/pink. rs5 19:08 18:00 Reassessment: Patient and/or family updated on plan of care and expected rs5 duration. Pain level reassessed. Patient is alert, oriented x 3, equal unlabored respirations, skin warm/dry/pink. rs5 19:09 18:00 Reassessment: Patient and/or family updated on plan of care and expected rs5 duration. Pain level reassessed. Patient is alert, oriented x 3, equal unlabored respirations, skin warm/dry/pink. rs5
[2023-07-28] MEDS ORDERED: ONDANSETRON 4 MG/2 ML VIAL IV PRN (22:25)
[2023-07-28] MEDS ORDERED: ACETAMINOPHEN 325 MG TABLET PO PRN (22:25)
--- NOTE | 2023-07-28 22:34 | P.HP ---
Certification for Inpatient Patient admitted to: Observation With expected LOS: <2 Midnights Practitioner: I am a practitioner with admitting privileges, knowledge of patient current condition, hospital course, and medical plan of care. Services: Services provided to patient in accordance with Admission requirements found in Title 42 Section 412.3 of the Code of Federal Regulations Patient History Date of Service: 07/29/23 Reason for admission: Hypertensive urgency, urinary tract infection. History of Present Illness: 68-year-old male patient with medical history significant for hypertension, chronic kidney disease stage IV, hyperlipidemia, history of prostate cancer status post surgery recently who was evaluated for episode of suspected adverse reaction to antihypertensive medications. He reported episode of tingling and skin disorder with use of recent changes to his antihypertensive medication. He reported being on nifedipine XL version 60 mg p.o. daily but that this dropped his blood pressure too rapidly and he feels significantly weak so his primary care physician had adjusted his dose to 30 mg version twice daily dose. After he took the medication he began to have episode of tingling in the upper extremities and some nonspecific cutaneous reaction prompting him to come to the emergency room. In the ED he was worked up and found to have no significant abnormality on imaging however he was noted to have a UA that is significantly concerning for urinary tract infection. He denies overt episode of fever, burning on passing urine, nausea, diarrhea. Because of concerns for poorly controlled blood pressure as his systolic blood pressure was greater than 200 he was admitted for inpatient care and he was asked to be evaluated for worsening kidney function. His serum creatinine was 3.2 on recent lab. Allergies venom-honey bee [bee venom (honey bee)] Allergy (Intermediate, Verified 01/31/12 03:10) Anaphylaxis Penicillins Allergy (Mild, Verified 09/26/12 21:52) Rash bupropion [From Wellbutrin] Allergy (Verified 04/14/16 23:15) Unknown bupropion HCl [From Zyban] Adverse Reaction (Intermediate, Verified 04/15/15 02 :58) Nausea/Vomiting trazodone Adverse Reaction (Intermediate, Verified 01/31/12 03:11) Rash clonidine Adverse Reaction (Verified 04/15/15 02:58) Shortness of breath cyclobenzaprine HCl [From Flexeril] Adverse Reaction (Verified 04/15/15 02:58) Nausea/Vomiting escitalopram oxalate [From Lexapro] Adverse Reaction (Verified 01/31/12 03:11) Rash Home Medications: Aspirin [Aspirin EC 81 MG] 81 mg PO DAILY 03/13/18 carvediloL [Carvedilol] 25 mg PO BID 03/13/18 ALPRAZolam [Xanax*] 0.25 mg PO BID PRN 07/29/23 Cholecalciferol (Vitd3)/Vit K2 [Decara K 1,250-200 Mcg Softgel] 1 each PO ONCE 07/29/23 Dextromethorphan/Benzocaine [Cepacol Sore Throat-Cough Danuta] 1 each PO Q4H PRN 07/29/23 Doxepin HCl [Sinequan] 10 mg PO BEDTIME 07/29/23 Famotidine [Pepcid] 20 mg PO DAILY 07/29/23 NIFEdipine [Nifedipine ER] 30 mg PO BID 07/29/23 Nitroglycerin 0.4 mg SL Q5MX3 PRN 07/29/23 Sertraline [Zoloft] 25 mg PO DAILY 07/29/23 Tamsulosin [Flomax] 0.4 mg PO DAILY 07/29/23 - Past Medical/Surgical History Diabetic: No -: HTN -: Depression -: Anxiety -: Pnemonia -: CAD -: Angioplasty - Family History Mother -: Hypertension, Cancer Father -: Heart disease - Social History Alcohol use: No CD- Drugs: No Caffeine use: Yes Review of Systems General: Weakness Eyes: Unremarkable ENT: Unremarkable Respiratory: Unremarkable Cardiovascular: Unremarkable Gastrointestinal: Unremarkable Genitourinary: Unremarkable Musculoskeletal: Unremarkable Integumentary: As per HPI Neurological: Unremarkable Physical Examination - Physical Exam General: Alert, In no apparent distress, Oriented x3 HEENT: Atraumatic, Normocephalic Neck: Supple Respiratory: Normal air movement Cardiovascular: Regular rate/rhythm, Normal S1 S2 Gastrointestinal: Soft and benign Musculoskeletal: No swelling Integumentary: No breakdown Neurological: Normal speech, Normal strength at 5/5 x4 extr - Studies Laboratory Data (last 24 hrs) 07/28/23 07/28/23 17:35 17:35 WBC 10.60 Hgb 11.4 L Hct 32.3 L Plt Count 216 Sodium 134 L Potassium 4.3 BUN 60 H Creatinine 3.20 H Glucose 103 Magnesium 2.3 Assessment and Plan - Plan Hypertensive urgency: Presently no adverse events such as headache, chest pain, shortness of breath. Systolic blood pressure greater than 200 mmHg noted. We will continue patient on nicardipine IV for blood pressure control on his home dose of nifedipine extended release 60 mg p.o. daily and carvedilol 25 mg p.o. twice daily. Aim is to have goal blood pressure of less than 130/80 mmHg. We will wean off IV nicardipine dose once goal blood pressure of <160mmhg systolic is achieved. Chronic kidney disease stage IV: Patient has stable kidney function with a GFR of 20 to 25%. We will continue with same care by avoiding nephrotoxins and we will dose medications for estimated pulmonary filtration rate. His outpatient gauge checker Dr. Valdez will be consulted for management recommendations. Prostate cancer: We will continue to management as per outpatient care. Urinary tract infection: UA significantly concerning. Empiric antibiotic therapy with Rocephin started. Monitor cultures for adjustment of antibiotic therapy as needed. Prophylaxis: Heparin for DVT prophylaxis CODE STATUS: Full code Disposition: We will manage his hypertensive urgency, treat UTI and discharge him when he is deemed clinically stable. - Advance Directives Does patient have a Living Will: No Does patient have a Durable POA for Healthcare: No
[2023-07-28] MEDS ORDERED: NITROGLYCERIN 1 GM PKT TD ONE (23:31)
[2023-07-29] MEDS: carvediloL 25 MG TAB PO SCH ×3 (00:51→18:00)
[2023-07-29] MEDS: HEPARIN 5000 UNIT/ML 1 ML VIAL SQ SCH ×3 (01:00→17:00)
[2023-07-29] MEDS ORDERED: HEPARIN 5000 UNIT/ML 1 ML VIAL ONE ×3 (01:36→18:31)
[2023-07-29] MEDS ORDERED: Nicardipine/NS 25 MG/250 ML KIT IV ONE ×3 (01:37→21:53)
[2023-07-29] MEDS: Nicardipine in Saline, Iso-Osm 20 MG/200 ML IV.SOLN. IV SCH ×2 (01:43→06:37)
[2023-07-29] MEDS ORDERED: carvediloL 6.25 MG TAB ONE (06:19)
[2023-07-29 06:39] LABS: Absolute Lymphocytes (CBC) 2.3 K/uL (0.7-4.9); Lymphocytes % 23.6 % (15.3-44.8); MCV 91.6 fL (80-100); Platelets 189 thou/uL (152-406)
[2023-07-29 06:56] LABS: Albumin 3.5 g/dL (3.4-5.0); Bilirubin Total 0.4 mg/dL (0.2-1.0); Potassium 3.8 mEq/L (3.5-5.1); Protein, Total 7.1 g/dL (6.4-8.2)
[2023-07-29] MEDS ORDERED: FUROSEMIDE 40 MG TABLET ONE (08:27)
[2023-07-29] MEDS: FUROSEMIDE 40 MG TABLET PO SCH (08:30)
[2023-07-29] MEDS ORDERED: NIFEDIPINE XL 60 MG TABLET PO SCH (09:00)
[2023-07-29] MEDS ORDERED: NA CHLORIDE 0.9% IV SCH (12:00)
[2023-07-29] MEDS ORDERED: NICARDIPINE HCL IV SCH (12:00)
[2023-07-29] MEDS ORDERED: NICARDIPINE HCL 25 MG in NA CHLORIDE 0.9% 240 ML IV SCH (12:00)
[2023-07-29] MEDS ORDERED: INFLUENZA VACCINE (for 6+ mo) 0.5 ML DOSE IMVAC ONE ×2 (12:00→14:12)
[2023-07-29] MEDS ORDERED: ACETAMINOPHEN 325 MG TABLET ONE (18:32)
--- NOTE | 2023-07-29 19:45 | P.PN ---
Subjective Date of Service: 07/29/23 Restarting oral antihypertensives. Once we get patient [facility] Echocardiogram pending. Anticipate discharge over the next 48 to 72 hours. Review of Systems 10-point ROS is otherwise unremarkable Physical Examination - Vital Signs Temperature: 98.4 F Blood Pressure: 161/68 Pulse: 62 Respirations: 18 Pulse Ox (%): 99 - Physical Exam General: Alert, In no apparent distress, Oriented x3 Respiratory: Clear to auscultation bilaterally, Normal air movement Cardiovascular: Regular rate/rhythm, Normal S1 S2, Systolic murmur Gastrointestinal: Normal bowel sounds, Soft and benign, Non-distended, No tenderness Musculoskeletal: No clubbing, No swelling, No tenderness Neurological: Sensation intact, Cranial nerves 3-12 intact - Studies Microbiology Data (last 24 hrs): 07/28/23 20:37 Blood - Blood Anaerobic Blood Culture - Final 07/28/23 20:43 Blood - Blood Anaerobic Blood Culture - Final Medications List Reviewed: Yes Assessment & Plan - Problems (Diagnosis) (1) CAD (coronary artery disease) Onset Date: 03/13/18 Current Visit: No Status: Acute Qualifiers: Coronary Disease-Associated Artery/Lesion type: [place] artery [place] vs. transplanted heart: [place] heart Associated angina: angina presence unspecified Qualified Code(s): I25.10 - Atherosclerotic heart disease of [place] coronary artery without angina pectoris (2) HTN (hypertension) Onset Date: 03/13/18 Current Visit: No Status: Acute Qualifiers: Hypertension type: essential hypertension Qualified Code(s): I10 - Essential (primary) hypertension (3) Hypertensive emergency Onset Date: 04/15/15 Current Visit: No Status: Acute (4) Syncope Onset Date: 03/13/18 Current Visit: No Status: Acute Qualifiers: Syncope type: unspecified Qualified Code(s): R55 - Syncope and collapse (5) CKD (chronic kidney disease) stage 4, GFR 15-29 ml/min Current Visit: Yes Status: Acute - Plan Plan: 1. Oral antihypertensives will be added to nicardipine drip. We will wean off of the nicardipine drip. We will get echocardiogram. Make sure patient does not have any end-organ injury. Patient has a longstanding history of noncompli ance. At this time, we will continue with medical management of patient's blood pressure. Monitor renal function and cardiac status. Neurologically, patient appears to be at baseline. No focal deficits noted. No visual deficits. Patient will be admitted to ICU as patient is on a nicardipine drip. 2. Patient was stage IV chronic kidney disease. No significant acidosis or hyperkalemia. Mild anemia. Monitor additional electrolytes. Nephrology was consulted. Renal ultrasound will be ordered. Patient will need to follow-up outpatient. We will lower his blood pressure down gradually so we do not worsen his renal function. 3. GI DVT prophylaxis Discharge Plan: Home Plan to discharge in: Greater than 2 days - Advance Directives Does patient have a Living Will: No Does patient have a Durable POA for Healthcare: No - Code Status/Comfort Care Code Status Assessed: Yes Code Status: Full Code Critical Care: No Time Spent Managing PTS Care (In Minutes): 35
[2023-07-29] MEDS ORDERED: LORazepam 2 MG/ML VIAL IV PRN (20:06)
[2023-07-29] MEDS ORDERED: ALPRAZOLAM 0.25 MG TABLET PO PRN (20:06)
[2023-07-29] MEDS ORDERED: NITROGLYCERIN 0.4 MG/TAB SL PRN (20:06)
--- NOTE | 2023-07-29 20:14 | P.CNS ---
Date of Consult: 07/29/23 Reason for Consult: WOJCIECH/ CKD Requesting Physician: Niles Zuluaga Chief Complaint: Hypertensive urgency, urinary tract infection. History of Present Illness: 68-year-old male patient with medical history significant for hypertension, chronic kidney disease stage IV, hyperlipidemia, history of prostate cancer status post surgery recently who was evaluated for episode of suspected adverse reaction to antihypertensive medications. He reported episode of tingling and skin disorder with use of recent changes to his antihypertensive medication. He reported being on nifedipine XL version 60 mg p.o. daily but that this dropped his blood pressure too rapidly and he feels significantly weak so his primary care physician had adjusted his dose to 30 mg version twice daily dose. After he took the medication he began to have episode of tingling in the upper extremities and some nonspecific cutaneous reaction prompting him to come to the emergency room. In the ED he was worked up and found to have no significant abnormality on imaging however he was noted to have a UA that is significantly concerning for urinary tract infection. He denies overt episode of fever, burning on passing urine, nausea, diarrhea. Because of concerns for poorly controlled blood pressure as his systolic blood pressure was greater than 200 he was admitted for inpatient care and he was asked to be evaluated for worsening kidney function. His serum creatinine was 3.2 on recent lab. Allergies venom-honey bee [bee venom (honey bee)] Allergy (Intermediate, Verified 01/31/12 03:10) Anaphylaxis Penicillins Allergy (Mild, Verified 09/26/12 21:52) Rash bupropion [From Wellbutrin] Allergy (Verified 04/14/16 23:15) Unknown bupropion HCl [From Zyban] Adverse Reaction (Intermediate, Verified 04/15/15 02:58) Nausea/Vomiting trazodone Adverse Reaction (Intermediate, Verified 01/31/12 03:11) Rash clonidine Adverse Reaction (Verified 04/15/15 02:58) Shortness of breath cyclobenzaprine HCl [From Flexeril] Adverse Reaction (Verified 04/15/15 02:58) Nausea/Vomiting escitalopram oxalate [From Lexapro] Adverse Reaction (Verified 01/31/12 03:11) Rash Home medications list reviewed: Yes Home Medications: Aspirin [Aspirin EC 81 MG] 81 mg PO DAILY 03/13/18 carvediloL [Carvedilol] 25 mg PO BID 03/13/18 ALPRAZolam [Xanax*] 0.25 mg PO BID PRN 07/29/23 Cholecalciferol (Vitd3)/Vit K2 [Decara K 1,250-200 Mcg Softgel] 1 each PO ONCE 07/29/23 Dextromethorphan/Benzocaine [Cepacol Sore Throat-Cough Dan[place]] 1 each PO Q4H PRN 07/29/23 Doxepin HCl [Sinequan] 10 mg PO BEDTIME 07/29/23 Famotidine [Pepcid] 20 mg PO DAILY 07/29/23 NIFEdipine [Nifedipine ER] 30 mg PO BID 07/29/23 Nitroglycerin 0.4 mg SL Q5MX3 PRN 07/29/23 Sertraline [Zoloft] 25 mg PO DAILY 07/29/23 Tamsulosin [Flomax] 0.4 mg PO DAILY 07/29/23 - Past Medical/Surgical History Diabetic: No -: HTN -: Depression -: Anxiety -: Pnemonia -: CAD -: Angioplasty - Family History Mother Medical History: Hypertension, Cancer Father Medical History: Heart disease - Social History Smoking Status: Current some day smoker Alcohol use: No CD- Drugs: No Caffeine use: Yes Place of Residence: Home Review of Systems 10-point ROS is otherwise unremarkable General: Malaise Physical Examination Temp Pulse Resp BP Pulse Ox 98.4 F 62 18 161/68 H 99 07/29/23 19:45 07/29/23 19:45 07/29/23 19:45 07/29/23 19:45 07/29/23 19:45 General: In no apparent distress, Oriented x3, Cooperative HEENT: Atraumatic Neck: Supple Respiratory: Clear to auscultation bilaterally Cardiovascular: No edema, Regular rate/rhythm Gastrointestinal: Soft and benign, Non-distended Musculoskeletal: No clubbing, No contractures Integumentary: No rashes, No cyanosis Neurological: Normal speech Blood work reviewed in the chart. Imagings Data: EXAM DESCRIPTION: Samantha Single View07/28/2023 6:05 pm CLINICAL HISTORY: Chest pain COMPARISON: December 2022 FINDINGS: The lungs appear clear of acute infiltrate. The heart is mildly enlarged IMPRESSION: No acute abnormalities displayed EXAM DESCRIPTION: CT - Head Brain Wo Cont - 07/28/2023 6:05 pm CLINICAL HISTORY: Syncope COMPARISON: December 2022 TECHNIQUE: Computed axial tomography of the head was obtained. IV contrast was not requested. All CT scans are performed using dose optimization technique as appropriate and may include automated exposure control or mA/KV adjustment according to patient size. FINDINGS: Left internal capsule bleed has resolved The ventricles are normal in caliber No extra-axial fluid collection is noted. Mild to moderate low-density areas within periventricular, deep and subcortical white matter likely represent ischemic changes secondary to small vessel disease. Fluid within the sinuses/ mastoids is not seen. IMPRESSION: No acute intracranial abnormality is seen. If patient's symptoms persist MRI of the brain would be recommended Conclusions/Impression: Stage I WOJCIECH in the setting of uncontrolled HTN CKD IV -No NSAIDS -Continue antihypertensives Hyponatremia -Encourage nutrition HTN Emergency HTN with CKD -Nicardipine gtt; wean as tolerated -Continue Coreg and Nifedipine Anemia in chronic illness -Monitor H&H BPH with LUTS -Continue Tamsulosin Cigarette Smoker -Recommend cessation Thank you kindly for the consultation Greater than 30min patient care
[2023-07-29] MEDS ORDERED: carvediloL 25 MG TAB PO SCH (21:00)
[2023-07-29] MEDS ORDERED: LORazepam 2 MG/ML VIAL ONE (21:53)
[2023-07-29] MEDS ORDERED: DOXEPIN HCL 10 MG CAP ONE (22:33)
[2023-07-29] MEDS: DOXEPIN HCL 10 MG CAP PO SCH (23:00)
[2023-07-30] MEDS: HEPARIN 5000 UNIT/ML 1 ML VIAL SQ SCH ×3 (01:00→17:00)
[2023-07-30 01:10] VITALS: BMI 29.0
[2023-07-30] MEDS ORDERED: Nicardipine/NS 0 MG/0 ML KIT IV ONE (03:29)
[2023-07-30 05:44] LABS: Absolute Lymphocytes (CBC) 2.5 K/uL (0.7-4.9); Hematocrit 31.8 % (39.6-49.0); Lymphocytes % 28.1 % (15.3-44.8); MCV 91.3 fL (80-100); MPV 7.8 fL (7.6-11.3); Platelets 203 thou/uL (152-406); RBC Red Blood Cell Count 3.49 M/uL (4.33-5.43)
[2023-07-30] MEDS: carvediloL 25 MG TAB PO SCH ×2 (06:00→18:34)
[2023-07-30 06:27] LABS: Albumin 3.3 g/dL (3.4-5.0); Bilirubin Total 0.4 mg/dL (0.2-1.0); Phosphorus 3.9 mg/dL (2.5-4.9); Potassium 3.7 mEq/L (3.5-5.1); Protein, Total 6.9 g/dL (6.4-8.2); Troponin High Sensitivity 15.3 pg/mL (<58.9)
--- NOTE | 2023-07-30 07:53 | EKG ---
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
--- NOTE | 2023-07-30 07:54 | RAD REPORT ---
EXAM DESCRIPTION: US - Renal Ultrasound-Complete - 07/29/2023 10:50 pm CLINICAL HISTORY: CKD IV COMPARISON: Abdomen Exam Limited dated 01/22/2023 FINDINGS: Both kidneys are normal in size, shape and echotexture. The right kidney measures 10.3 cm. No hydronephrosis, focal mass or perinephric fluid. The left kidney measures 10.1 cm. No hydronephrosis, focal mass or perinephric fluid. The urinary bladder is incompletely distended without gross abnormality seen. IMPRESSION: Unremarkable renal sonogram. No hydronephrosis
[2023-07-30] MEDS: FUROSEMIDE 40 MG TABLET PO SCH (09:00)
[2023-07-30] MEDS: TAMSULOSIN 0.4 MG SR CAP PO SCH (09:00)
[2023-07-30] MEDS: FAMOTIDINE 20 MG TAB PO SCH (09:00)
[2023-07-30] MEDS: SERTRALINE HCL 50 MG TAB PO SCH (09:00)
[2023-07-30] MEDS: ASPIRIN EC 81 MG TAB PO SCH (09:00)
[2023-07-30] MEDS: NIFEDIPINE XL 30 MG TABLET PO SCH ×2 (09:00→20:12)
[2023-07-30] MEDS ORDERED: FUROSEMIDE 40 MG TABLET ONE (09:14)
[2023-07-30] MEDS ORDERED: HEPARIN 5000 UNIT/ML 1 ML VIAL ONE (09:14)
[2023-07-30] MEDS ORDERED: ASPIRIN EC 81 MG TAB PO ONE (09:15)
[2023-07-30] MEDS ORDERED: TAMSULOSIN 0.4 MG SR CAP ONE (09:15)
[2023-07-30] MEDS ORDERED: FAMOTIDINE 20 MG TAB ONE (09:15)
--- NOTE | 2023-07-30 09:17 | RAD REPORT ---
EXAM DESCRIPTION: MRI - Brain Wo Cont - 07/30/2023 9:04 am CLINICAL HISTORY: AMS COMPARISON: MRI BRAIN WITHOUT CONTRAST dated 01/28/2008 TECHNIQUE: Sagittal T1-weighted images were obtained along with PD/heavily T2-weighted and T2-FLAIR images. Axial DWI and ADC mapping sequences were also obtained along with coronal heavily T2-weighted images were obtained. FINDINGS: No intracranial hemorrhage, mass or acute infarction. There is no edema or shift of midlin e structures. No extra-axial fluid collections. Signal voids are seen as a normal finding in the jabier r intracranial vessels. Moderate chronic small vessel ischemic changes. Mild circumferential thickening in the maxillary sinuses, frontal sinuses, and ethmoid air cells. IMPRESSION: No acute intracranial abnormality. No acute infarct. Moderate chronic small vessel ische josiah changes.
[2023-07-30] MEDS ORDERED: ALPRAZOLAM 0.25 MG TABLET ONE (10:33)
[2023-07-30] MEDS ORDERED: Nicardipine/NS 25 MG/250 ML KIT IV ONE (13:44)
[2023-07-30 18:34] VITALS: O2SAT 98
[2023-07-30] MEDS: ALPRAZOLAM 0.25 MG TABLET PO SCH (20:02)
[2023-07-30] MEDS: DOXEPIN HCL 10 MG CAP PO SCH (20:13)
--- NOTE | 2023-07-30 21:06 | P.PN ---
Date of Service: 07/30/23 Vital Signs Temp Pulse Resp BP Pulse Ox 98.1 F 71 17 185/86 H 96 07/30/23 18:20 07/30/23 20:12 07/30/23 18:32 07/30/23 20:12 07/30/23 18:20 Medications Acetaminophen (Acetaminophen 325 Mg Tablet) 650 mg PO Q4HP PRN PRN Reason: Pain scale 2-4 (Mild) Alprazolam (Alprazolam 0.25 Mg Tablet) 0.25 mg PO TID [facility] Last Admin: 07/30/23 20:02 Dose: 0.25 mg Aspirin (Aspirin Ec 81 Mg Tab) 81 mg PO DAILY [facility] Last Admin: 07/30/23 09:00 Dose: 81 mg Carvedilol (Carvedilol 25 Mg Tab) 25 mg PO BID 6AM 6PM ISATU Last Admin: 07/30/23 18:34 Dose: 25 mg Doxepin HCl (Doxepin Hcl 10 Mg Cap) 10 mg PO BEDTIME ISATU Last Admin: 07/30/23 20:13 Dose: 10 mg Famotidine (Famotidine 20 Mg Tab) 20 mg PO DAILY [facility]; Protocol Last Admin: 07/30/23 09:00 Dose: 20 mg Furosemide (Furosemide 40 Mg Tablet) 40 mg PO DAILY [facility] Last Admin: 07/30/23 09:00 Dose: 40 mg Heparin Sodium (Porcine) (Heparin 5000 Unit/Ml 1 Ml Vial) 5,000 unit SQ Q8HR [facility] Last Admin: 07/30/23 17:00 Dose: Not Given Home Med (Cholecalciferol (Vitd3)/Vit K2 [Decara K 1,250-200 Mcg Softgel]) 1 each PO Q14D [facility] Nicardipine HCl 25 mg/ Sodium (Chloride) 250 mls @ 50 mls/hr IV TITR ISATU; Protocol Last Titration: 07/29/23 20:00 Dose: Infused Lorazepam (Lorazepam 2 Mg/Ml Vial) 0.5 mg IV Q12H PRN PRN Reason: SEDATION Last Admin: 07/29/23 22:00 Dose: 0.5 mg Nifedipine (Nifedipine Xl 30 Mg Tablet) 30 mg PO BID [facility] Last Admin: 07/30/23 20:12 Dose: 30 mg Nitroglycerin (Nitroglycerin 0.4 Mg/Tab) 0.4 mg SL Q5M PRN PRN Reason: chest pain Ondansetron HCl (Ondansetron 4 Mg/2 Ml Vial) 4 mg IV Q6HP PRN PRN Reason: NAUSEA / VOMITING Sertraline HCl (Sertraline Hcl 50 Mg Tab) 25 mg PO DAILY [facility] Last Admin: 07/30/23 09:00 Dose: 25 mg Tamsulosin HCl (Tamsulosin 0.4 Mg Sr Cap) 0.4 mg PO DAILY [facility] Last Admin: 07/30/23 09:00 Dose: 0.4 mg Microbiology Results 07/28/23 19:05 Clean Catch Urine [place] Count - Final No growth. 07/28/23 19:05 Clean Catch Urine - Final No growth. 07/28/23 20:43 Blood - Blood Aerobic Blood Culture - Preliminary No growth in 24 hours. 07/28/23 20:43 Blood - Blood Anaerobic Blood Culture - Final 07/28/23 20:37 Blood - Blood Aerobic Blood Culture - Preliminary No growth in 24 hours. 07/28/23 20:37 Blood - Blood Anaerobic Blood Culture - Final Assessment/ Plan: Nephrology No dyspnea No chest pain Feeling better No acute events overnight Vitals, medications, blood work and imaging reviewed in the chart. General: In no apparent distress, Oriented x3, Cooperative HEENT: Atraumatic Neck: Supple Respiratory: Clear to auscultation bilaterally Cardiovascular: No edema, Regular rate/rhythm Gastrointestinal: Soft and benign, Non-distended Musculoskeletal: No clubbing, No contractures Integumentary: No rashes, No cyanosis Neurological: Normal speech Blood work reviewed in the chart. Imagings Data: EXAM DESCRIPTION: RADCheriet Single View07/28/2023 6:05 pm CLINICAL HISTORY: Chest pain COMPARISON: December 2022 FINDINGS: The lungs appear clear of acute infiltrate. The heart is mildly enlarged IMPRESSION: No acute abnormalities displayed EXAM DESCRIPTION: CT - Head Brain Wo Cont - 07/28/2023 6:05 pm CLINICAL HISTORY: Syncope COMPARISON: December 2022 TECHNIQUE: Computed axial tomography of the head was obtained. IV contrast was not requested. All CT scans are performed using dose optimization technique as appropriate and may include automated exposure control or mA/KV adjustment according to patient size. FINDINGS: Left internal capsule bleed has resolved The ventricles are normal in caliber No extra-axial fluid collection is noted. Mild to moderate low-density areas within periventricular, deep and subcortical white matter likely represent ischemic changes secondary to small vessel disease. Fluid within the sinuses/ mastoids is not seen. IMPRESSION: No acute intracranial abnormality is seen. If patient's symptoms persist MRI of the brain would be recommended Conclusions/Impression: Stage I WOJCIECH in the setting of uncontrolled HTN CKD IV -No NSAIDS -Continue antihypertensives Hyponatremia -Encourage nutrition HTN Emergency HTN with CKD -Nicardipine gtt; wean as tolerated -Continue Coreg -Increase Nifedipine Anemia in chronic illness -Monitor H&H BPH with LUTS -Continue Tamsulosin Cigarette Smoker -Recommend cessation Hospitalist note reviewed
[2023-07-31] MEDS: HEPARIN 5000 UNIT/ML 1 ML VIAL SQ SCH ×3 (01:00→16:38)
[2023-07-31] MEDS: carvediloL 25 MG TAB PO SCH ×2 (06:00→18:21)
[2023-07-31] MEDS ORDERED: NIFEDIPINE XL 30 MG TABLET PO SCH (09:00)
--- NOTE | 2023-07-31 09:38 | P.PN ---
Date of Service: 07/31/23 Vital Signs Temp Pulse Resp BP Pulse Ox 98 F 61 17 182/81 H 96 07/31/23 08:00 07/31/23 08:00 07/31/23 08:00 07/31/23 08:00 07/31/23 08:00 Medications Acetaminophen (Acetaminophen 325 Mg Tablet) 650 mg PO Q4HP PRN PRN Reason: Pain scale 2-4 (Mild) Alprazolam (Alprazolam 0.25 Mg Tablet) 0.25 mg PO TID [facility] Last Admin: 07/30/23 20:02 Dose: 0.25 mg Aspirin (Aspirin Ec 81 Mg Tab) 81 mg PO DAILY [facility] Last Admin: 07/30/23 09:00 Dose: 81 mg Carvedilol (Carvedilol 25 Mg Tab) 25 mg PO BID 6AM 6PM [facility] Last Admin: 07/31/23 06:00 Dose: Not Given Doxepin HCl (Doxepin Hcl 10 Mg Cap) 10 mg PO BEDTIME [facility] Last Admin: 07/30/23 20:13 Dose: 10 mg Famotidine (Famotidine 20 Mg Tab) 20 mg PO DAILY [facility]; Protocol Last Admin: 07/30/23 09:00 Dose: 20 mg Furosemide (Furosemide 40 Mg Tablet) 40 mg PO DAILY [facility] Last Admin: 07/30/23 09:00 Dose: 40 mg Heparin Sodium (Porcine) (Heparin 5000 Unit/Ml 1 Ml Vial) 5,000 unit SQ Q8HR [facility] Last Admin: 07/31/23 01:00 Dose: Not Given Home Med (Cholecalciferol (Vitd3)/Vit K2 [Decara K 1,250-200 Mcg Softgel]) 1 each PO Q14D [facility] Lorazepam (Lorazepam 2 Mg/Ml Vial) 0.5 mg IV Q12H PRN PRN Reason: SEDATION Last Admin: 07/29/23 22:00 Dose: 0.5 mg Nifedipine (Nifedipine Xl 60 Mg Tablet) 60 mg PO BID [facility] Nitroglycerin (Nitroglycerin 0.4 Mg/Tab) 0.4 mg SL Q5M PRN PRN Reason: chest pain Ondansetron HCl (Ondansetron 4 Mg/2 Ml Vial) 4 mg IV Q6HP PRN PRN Reason: NAUSEA / VOMITING Potassium Bicarbonate (Potassium 25 Meq Efferv Tab) 25 meq PO 1X ONE Stop: 07/31/23 09:33 Sertraline HCl (Sertraline Hcl 50 Mg Tab) 25 mg PO DAILY [facility] Last Admin: 07/30/23 09:00 Dose: 25 mg Tamsulosin HCl (Tamsulosin 0.4 Mg Sr Cap) 0.4 mg PO DAILY [facility] Last Admin: 07/30/23 09:00 Dose: 0.4 mg Microbiology Results 07/28/23 19:05 Clean Catch Urine [place] Count - Final No growth. 07/28/23 19:05 Clean Catch Urine - Final No growth. 07/28/23 20:43 Blood - Blood Aerobic Blood Culture - Preliminary No growth in 24 hours. 07/28/23 20:43 Blood - Blood Anaerobic Blood Culture - Final 07/28/23 20:37 Blood - Blood Aerobic Blood Culture - Preliminary No growth in 24 hours. 07/28/23 20:37 Blood - Blood Anaerobic Blood Culture - Final Assessment/ Plan: Nephrology No dyspnea No chest pain Feeling better Reports waxing and waning anxiety No acute events overnight Vitals, medications, blood work and imaging reviewed in the chart. General: In no apparent distress, Oriented x3, Cooperative HEENT: Atraumatic Neck: Supple Respiratory: Clear to auscultation bilaterally Cardiovascular: No edema, Regular rate/rhythm Gastrointestinal: Soft and benign, Non-distended Musculoskeletal: No clubbing, No contractures Integumentary: No rashes, No cyanosis Neurological: Normal speech Blood work reviewed in the chart. Imagings Data: EXAM DESCRIPTION: RADChest Single View07/28/2023 6:05 pm CLINICAL HISTORY: Chest pain COMPARISON: December 2022 FINDINGS: The lungs appear clear of acute infiltrate. The heart is mildly enlarged IMPRESSION: No acute abnormalities displayed EXAM DESCRIPTION: CT - Head Brain Wo Cont - 07/28/2023 6:05 pm CLINICAL HISTORY: Syncope COMPARISON: December 2022 TECHNIQUE: Computed axial tomography of the head was obtained. IV contrast was not requested. All CT scans are performed using dose optimization technique as appropriate and may include automated exposure control or mA/KV adjustment according to patient size. FINDINGS: Left internal capsule bleed has resolved The ventricles are normal in caliber No extra-axial fluid collection is noted. Mild to moderate low-density areas within periventricular, deep and subcortical white matter likely represent ischemic changes secondary to small vessel disease. Fluid within the sinuses/ mastoids is not seen. IMPRESSION: No acute intracranial abnormality is seen. If patient's symptoms persist MRI of the brain would be recommended Conclusions/Impression: Stage I WOJCIECH in the setting of uncontrolled HTN CKD IV -No NSAIDS -Continue antihypertensives Hyponatremia -Encourage nutrition HTN Emergency HTN with CKD -Nicardipine gtt weaned off -Continue Coreg -Continue Nifedipine XL 60mg BID Elevated BNP -Continue Lasix -Echocardiogram pending Anemia in chronic illness -Monitor H&H BPH with LUTS -Continue Tamsulosin Cigarette Smoker -Recommend cessation -Nicotine TD prn Hospitalist note reviewed
[2023-07-31] MEDS: ALPRAZOLAM 0.25 MG TABLET PO SCH ×3 (09:45→21:17)
[2023-07-31] MEDS: TAMSULOSIN 0.4 MG SR CAP PO SCH (09:45)
[2023-07-31] MEDS: FUROSEMIDE 40 MG TABLET PO SCH (09:45)
[2023-07-31] MEDS ORDERED: POTASSIUM 25 MEQ EFFERV TAB PO ONE (09:45)
[2023-07-31] MEDS: FAMOTIDINE 20 MG TAB PO SCH (09:46)
[2023-07-31] MEDS: SERTRALINE HCL 50 MG TAB PO SCH (09:46)
[2023-07-31] MEDS: NIFEDIPINE XL 60 MG TABLET PO SCH ×2 (09:46→21:16)
[2023-07-31] MEDS: ASPIRIN EC 81 MG TAB PO SCH (09:46)
[2023-07-31] MEDS ORDERED: HYDRALAZINE HCL 25 MG TABLET PO ONE (11:23)
[2023-07-31] MEDS ORDERED: DOXAZOSIN 2 MG TAB PO ONE (12:24)
[2023-07-31] MEDS ORDERED: HYDRALAZINE HCL 25 MG TABLET PO SCH (14:00)
[2023-07-31 15:36] LABS: Potassium 4.2 mEq/L (3.5-5.1)
[2023-07-31] MEDS ORDERED: NA CHLORIDE 0.9% 1,000 ML IV SCH (16:00)
[2023-07-31] MEDS: ISOSORBIDE DINIT 20 MG TAB PO ONE ×2 (16:07)
[2023-07-31] MEDS ORDERED: ALPRAZOLAM 0.5 MG TABLET PO ONE (17:14)
[2023-07-31] MEDS ORDERED: ISOSORBIDE DINIT 20 MG TAB PO SCH (21:00)
[2023-07-31] MEDS: DOXAZOSIN 2 MG TAB PO SCH (21:16)
[2023-07-31] MEDS: DOXEPIN HCL 10 MG CAP PO SCH (21:17)
[2023-08-01] MEDS: HEPARIN 5000 UNIT/ML 1 ML VIAL SQ SCH ×2 (00:55→09:23)
[2023-08-01] MEDS: carvediloL 25 MG TAB PO SCH (05:56)
--- NOTE | 2023-08-01 07:17 | ECHO ---
HEIGHT: 5 ft 6 in WEIGHT: 180 lb 0 oz DATE OF STUDY: 07/31/[address]: Niles Zuluaga MD 2-DIMENSIONAL: YES M.MODE: YES DOPPLER: YES COLOR FLOW: YES TDS: PORTABLE: YES DEFINITY: BUBBLE STUDY: DIAGNOSIS: CONGESTIVE HEART FAILURE CARDIAC HISTORY: CATHERIZATION: SURGERY: PROSTHETIC VALVE: PACEMAKER: MEASUREMENTS (cm) DIASTOLIC (NORMALS) SYSTOLIC (NORMALS) IVSd 1.1 (0.6-1.2) LA Diam 4.2 (1.9-4.0) LVEF 63% LVIDd 4.3 (3.5-5.7) LVIDs 2.9 (2.0-3.5) %FS 34% LVPWd 1.4 (0.6-1.2) Ao Diam 3.0 (2.0-3.7) 2 DIMENSIONAL ASSESSMENT: RIGHT ATRIUM: NORMAL LEFT ATRIUM: ENLARGED RIGHT VENTRICLE: NORMAL LEFT VENTRICLE: LEFT VENTRICULAR HYPERTROPHY TRICUSPID VALVE: NORMAL MITRAL VALVE: MILD MITRAL REGURGITATION PULMONIC VALVE: NORMAL AORTIC VALVE: NORMAL PERICARDIAL EFFUSION: NONE AORTIC ROOT: NORMAL LEFT VENTRICULAR WALL MOTION: NORMAL DOPPLER/COLOR FLOW: SEE BELOW COMMENTS: 1. NORMAL LEFT VENTRICULAR EJECTION FRACTION 60-65% 2. NORMAL WALL MOTION 3. GRADE I DIASTOLIC DYSFUNCTION 4. MILD CONCENTRIC LEFT VENTRICULAR HYPERTROPHY 5. LEFT ATRIAL ENLARGEMENT 6. MILD MITRAL REGURGITATION TECHNOLOGIST: RAYMOND OSUNA
[2023-08-01] MEDS: NIFEDIPINE XL 60 MG TABLET PO SCH (09:21)
[2023-08-01] MEDS: SERTRALINE HCL 50 MG TAB PO SCH (09:22)
[2023-08-01] MEDS: TAMSULOSIN 0.4 MG SR CAP PO SCH (09:22)
[2023-08-01] MEDS: ALPRAZOLAM 0.25 MG TABLET PO SCH (09:22)
[2023-08-01] MEDS: DOXAZOSIN 2 MG TAB PO SCH (09:22)
[2023-08-01] MEDS: ASPIRIN EC 81 MG TAB PO SCH (09:22)
[2023-08-01] MEDS: FAMOTIDINE 20 MG TAB PO SCH (09:23)
[2023-08-01] MEDS: FUROSEMIDE 40 MG TABLET PO SCH (09:23)
[2023-08-01 09:28] VITALS: BP 156/68
[2023-08-01 10:27] VITALS: TEMP 97.6
--- NOTE | 2023-08-01 22:03 | P.PN ---
Date of Service: 08/01/23 Vital Signs Temp Pulse Resp BP Pulse Ox 97.6 F 59 16 156/68 H 97 08/01/23 08:00 08/01/23 09:21 08/01/23 08:00 08/01/23 09:23 08/01/23 08:00 Microbiology Results 07/28/23 19:05 Clean Catch Urine [place] Count - Final No growth. 07/28/23 19:05 Clean Catch Urine - Final No growth. 07/28/23 20:43 Blood - Blood Aerobic Blood Culture - Preliminary No growth in 24 hours. 07/28/23 20:43 Blood - Blood Anaerobic Blood Culture - Final 07/28/23 20:37 Blood - Blood Aerobic Blood Culture - Preliminary No growth in 24 hours. 07/28/23 20:37 Blood - Blood Anaerobic Blood Culture - Final Assessment/ Plan: Nephrology No dyspnea No chest pain Feeling better No acute events overnight Vitals, medications, blood work and imaging reviewed in the chart. General: In no apparent distress, Oriented x3, Cooperative HEENT: Atraumatic Neck: Supple Respiratory: Clear to auscultation bilaterally Cardiovascular: No edema, Regular rate/rhythm Gastrointestinal: Soft and benign, Non-distended Musculoskeletal: No clubbing, No contractures Integumentary: No rashes, No cyanosis Neurological: Normal speech Blood work reviewed in the chart. Imagings Data: EXAM DESCRIPTION: [place] Single View07/28/2023 6:05 pm CLINICAL HISTORY: Chest pain COMPARISON: December 2022 FINDINGS: The lungs appear clear of acute infiltrate. The heart is mildly enlarged IMPRESSION: No acute abnormalities displayed EXAM DESCRIPTION: CT - Head Brain Wo Cont - 07/28/2023 6:05 pm CLINICAL HISTORY: Syncope COMPARISON: December 2022 TECHNIQUE: Computed axial tomography of the head was obtained. IV contrast was not requested. All CT scans are performed using dose optimization technique as appropriate and may include automated exposure control or mA/KV adjustment according to patient size. FINDINGS: Left internal capsule bleed has resolved The ventricles are normal in caliber No extra-axial fluid collection is noted. Mild to moderate low-density areas within periventricular, deep and subcortical white matter likely represent ischemic changes secondary to small vessel disease. Fluid within the sinuses/ mastoids is not seen. IMPRESSION: No acute intracranial abnormality is seen. If patient's symptoms persist MRI of the brain would be recommended EXAM DESCRIPTION: US - Renal Ultrasound-Complete - 07/29/2023 10:50 pm CLINICAL HISTORY: CKD IV COMPARISON: Abdomen Exam Limited dated 01/22/2023 FINDINGS: Both kidneys are normal in size, shape and echotexture. The right kidney measures 10.3 cm. No hydronephrosis, focal mass or perinephric fluid. The left kidney measures 10.1 cm. No hydronephrosis, focal mass or perinephric fluid. The urinary bladder is incompletely distended without gross abnormality seen. IMPRESSION: Unremarkable renal sonogram. No hydronephrosis LEFT VENTRICULAR WALL MOTION: NORMAL DOPPLER/COLOR FLOW: SEE BELOW COMMENTS: 1. NORMAL LEFT VENTRICULAR EJECTION FRACTION 60-65% 2. NORMAL WALL MOTION 3. GRADE I DIASTOLIC DYSFUNCTION 4. MILD CONCENTRIC LEFT VENTRICULAR HYPERTROPHY 5. LEFT ATRIAL ENLARGEMENT 6. MILD MITRAL REGURGITATION Conclusions/Impression: Stage I WOJCIECH in the setting of uncontrolled HTN CKD IV -No NSAIDS -Continue antihypertensives Hyponatremia -Encourage nutrition HTN Emergency HTN with CKD -Nicardipine gtt weaned off -Continue Coreg -Continue Nifedipine XL 60mg BID Diastolic CHF, chronic LVH -Discontinue Lasix -Echocardiogram reviewed Anemia in chronic illness -Monitor H&H BPH with LUTS -Continue Tamsulosin Cigarette Smoker -Recommend cessation -Nicotine TD prn Hospitalist note reviewed
[2023-08-02] MEDS ORDERED: CHOLECALCIFEROL PO SCH (09:00)
[2023-08-02] MEDS ORDERED: PHYTONADIONE PO SCH (09:00)
== END 2023-08-01 13:12 | disposition home or self-care (01) | DRG 683 ==
LOC: ER 16:49 → ERHOLD 22:25 → 2ND 07-30 17:41
PROVIDERS: ADMIT Internal Medicine Nephrology; ATTEND Hospitalist
DX: N17.9 Acute kidney failure, unspecified (principal); E87.1 Hypo-osmolality and hyponatremia; N39.0 Urinary tract infection, site not specified; I16.1 Hypertensive emergency; I50.32 Chronic diastolic (congestive) heart failure; I13.0 Hypertensive heart and chronic kidney disease with heart failure and stage 1 through stage 4 chronic kidney disease, or unspecified chronic kidney disease; N18.4 Chronic kidney disease, stage 4 (severe); D63.1 Anemia in chronic kidney disease; N40.1 Benign prostatic hyperplasia with lower urinary tract symptoms; E78.5 Hyperlipidemia, unspecified; I25.10 Atherosclerotic heart disease of native coronary artery without angina pectoris; F17.210 Nicotine dependence, cigarettes, uncomplicated; T46.5X5A Adverse effect of other antihypertensive drugs, initial encounter; Z88.0 Allergy status to penicillin; Z88.8 Allergy status to other drugs, medicaments and biological substances; Z79.82 Long term (current) use of aspirin; Z85.46 Personal history of malignant neoplasm of prostate; Z79.02 Long term (current) use of antithrombotics/antiplatelets; Z91.030 Bee allergy status; Z28.311 Partially vaccinated for COVID-19; Z79.899 Other long term (current) drug therapy
CPT/HCPCS: 36415; 70450; 70551; 71045; 76770; 80048; 80053; 80061; 80307; 81001; 82533; 82607; 83540; 83605; 83735; 83880; 84100; 84484; 85025; 87040; 87086; 87088; 90471; 93005; 93306; 96365; 96366; 96375; 99284; J0696; J1644; J7030; J7040; J7050; Q2035

== ENCOUNTER 2025-02-02 15:42 | Emergency (ER) | payer OTHER ==
[2025-02-02] MEDS ORDERED: NIFEdipine 10 MG CAP ONE (17:54)
[2025-02-02] MEDS ORDERED: carvediloL 6.25 MG TAB ONE (17:54)
[2025-02-02] MEDS ORDERED: ALPRAZOLAM 0.25 MG TABLET ONE (17:55)
--- NOTE | 2025-02-02 18:09 | EDPHYS ---
Physician Documentation [facility] Name: Kd Campbell Age: 69 yrs Sex: Male : 1955 Arrival Date: 02/02/2025 Time: 15:42 Bed 9 Private MD: ED Physician Elie Nicole HPI: 02/02 15:56 This 69 yrs old Male presents to ER via Ambulatory with complaints of fatigue. kb 15:56 Pt is a 69 year old male who presents for refills of medication. States he has been out kb of carvedilol for a couple of weeks and nifedipine for one week. States he has been taking care of his that has breast cancer so he missed his PCP appts to get his refills. Denies any chest pain, dizziness, headache. States he just wanted to get refills and go home. . Historical: - Allergies: 15:52 bee venom (honey bee); ll1 15:52 Clonidine; ll1 15:52 Depakote; ll1 15:52 HYDRALAZINE; ll1 15:52 Lexapro; ll1 15:52 PENICILLINS; ll1 15:52 Wellbutrin; ll1 - PMHx: 15:52 Anxiety; Hypertension; MANIC DEPRESSION; pnemonia; ll1 - Immunization history:: Adult Immunizations up to date. - Infectious Disease History:: Denies. - Social history:: Smoking status: Patient denies any tobacco usage or history of. ROS: 15:56 Constitutional: As per HPI kb Exam: 15:56 Constitutional: This is a well developed, well nourished patient who is awake, alert, kb and in no acute distress. Head/Face: Normocephalic, atraumatic. ENT: Moist Mucous membranes Cardiovascular: Regular rate Respiratory: Respirations even and unlabored. No increased work of breathing. Talking in full sentences Skin: Warm, dry with normal turgor. Normal color. MS/ Extremity: Pulses equal, no cyanosis. Neurovascular intact. Full, normal range of motion. Neuro: Awake and alert, GCS 15, oriented to person, place, time, and situation. Vital Signs: 15:50 BP 249 / 108; Pulse 95; Resp 18; Pulse Ox 100% ; ll1 15:53 BP 230 / 106; ll1 18:00 BP 199 / 91; Pulse 72; Resp 18; Temp 98.2; ll1 18:22 BP 187 / 89; Pulse 70; Resp 18; Pulse Ox 97% on R/A; mb9 MDM: 15:47 Medical Screening Exam initiated kb 16:00 Differential diagnosis: hypertensive crisis, malignant HTN. Data reviewed: vital signs, kb nurses notes. Test considered but Not performed: Other Details cbc, cmp considered but pt would like to get refills and go upstairs where his is admitted. Does not want any testing done at this time. . Counseling: I had a detailed discussion with the patient and/or guardian regarding the historical points, exam findings, and any diagnostic results supporting the discharge/admit diagnosis, the need for outpatient follow up, a family practitioner, to return to the emergency department if symptoms worsen or persist or if there are any questions or concerns that arise at home. Administered Medications: 16:03 CANCELLED (Physician Discretion): lorazepam1 mg PO once kb 18:01 Drug: NIFEdipine PO 30 mg PO once Route: PO; ll1 18:22 Follow up: Response: No adverse reaction mb9 18:01 Drug: carvedilol PO 25 mg PO once; administer with food Route: PO; ll1 18:22 Follow up: Response: No adverse reaction mb9 18:01 Drug: ALPRAZolam PO Tablet 0.25 mg PO once Route: PO; ll1 18:22 Follow up: Response: No adverse reaction mb9 Disposition: 19:30 Co-signature as Attending Physician, Elie Nicole MD I reviewed the patient's care rn provided by the Advanced Practice Provider and agree with the diagnosis and treatment plan. Disposition Summary: 02/02/25 18:09 Discharge Ordered Notes: Location: Home kb Condition: Stable kb Diagnosis - Essential (primary) hypertension kb Followup: kb - With: Emergency Department - When: As needed - Reason: Worsening of condition Followup: kb - With: Private Physician - When: 2 - 3 days - Reason: Recheck today's complaints, Continuance of care, Re-evaluation by your physician Discharge Instructions: - Discharge Summary Sheet kb - Hypertension, Adult, [id number] kb - Managing Your Hypertension kb Forms: - Medication Reconciliation Form kb - Antibiotic Education kb - Prescription Opioid Use kb - Patient Portal Instructions kb - Leadership Thank You Letter kb Prescriptions: - carvedilol 25 mg Oral tablet - take 1 tablet ORAL route 2 times per day must administer with a meal/food; 60 kb tablet; Refills: 0, Product Selection Permitted - nifedipine 30 mg Oral tablet, extended release - take 1 tablet ORAL route 2 times per day; 60 tablet; Refills: 0, Product kb Selection Permitted Signatures: Alice Brizuela FNP-C FNP-Elie Ortega MD MD rn Lewis, Lynsay, RN RN ll1 Kristie De La Cruz RN RN mb9 Corrections: (The following items were deleted from the chart) 16:03 16:00 LORazepam PO 1 mg PO once ordered. kb kb
--- NOTE | 2025-02-02 18:09 | ER ---
Nurse's Notes [facility] Name: Kd Campbell Age: 69 yrs Sex: Male : 1955 Arrival Date: 02/02/2025 Time: 15:42 Bed 9 Private MD: Diagnosis: Essential (primary) hypertension Presentation: 02/02 15:50 Chief complaint: Patient states: Out of his everyday medications for 1 week. Missed ll1 appointments due to taking care of his . Reports fatigue. Coronavirus screen: Client denies travel out of the [place] in the last 14 days. At this time, the client does not indicate any symptoms associated with coronavirus-19. Ebola Screen: Patient denies travel to an Ebola-affected area in the 21 days before illness onset. Initial Sepsis Screen: Does the patient meet any 2 criteria? No. Patient's initial sepsis screen is negative. Does the patient have a suspected source of infection? No. Patient's initial sepsis screen is negative. Risk Assessment: Do you want to hurt yourself or someone else? Patient reports no desire to harm self or others. Onset of symptoms was January 27, 2025. 15:50 Method Of Arrival: Ambulatory ll1 15:50 Acuity: VOLODYMYR 2 ll1 Triage Assessment: 15:53 General: Appears uncomfortable, Behavior is calm, cooperative, appropriate for age, ll1 Reports fatigue for needs medication refills. Pain: Denies pain. Neuro: Reports weakness. Historical: - Allergies: 15:52 bee venom (honey bee); ll1 15:52 Clonidine; ll1 15:52 Depakote; ll1 15:52 HYDRALAZINE; ll1 15:52 Lexapro; ll1 15:52 PENICILLINS; ll1 15:52 Wellbutrin; ll1 - PMHx: 15:52 Anxiety; Hypertension; MANIC DEPRESSION; pnemonia; ll1 - Immunization history:: Adult Immunizations up to date. - Infectious Disease History:: Denies. - Social history:: Smoking status: Patient denies any tobacco usage or history of. Screenin:21 [facility] ED Fall Risk Assessment (Adult) History of falling in the last 3 months, mb9 including since admission No falls in past 3 months (0 pts) Confusion or Disorientation No (0 pts) Intoxicated or Sedated No (0 pts) Impaired Gait No (0 pts) Mobility Assist Device Used No (0 pt) Altered Elimination No (0 pt) Score/Fall Risk Level 0 - 2 = Low Risk Oriented to surroundings, Maintained a safe environment, Educated pt \T\ family on fall prevention, incl call for assistance when getting out of bed. Abuse screen: Denies threats or abuse. Nutritional screening: No deficits noted. Tuberculosis screening: No symptoms or risk factors identified. Assessment: 17:48 Reassessment: No changes from previously documented assessment. Patient and/or family ll1 updated on plan of care and expected duration. Pain level reassessed. 18:01 Reassessment: No changes from previously documented assessment. Patient and/or family ll1 updated on plan of care and expected duration. Pain level reassessed. Patient is alert, oriented x 3, equal unlabored respirations, skin warm/dry/pink. 18:21 Reassessment: Patient appears in no apparent distress at this time. No changes from mb9 previously documented assessment. Patient and/or family updated on plan of care and expected duration. Pain level reassessed. Patient is alert, oriented x 3, equal unlabored respirations, skin warm/dry/pink. Vital Signs: 15:50 BP 249 / 108; Pulse 95; Resp 18; Pulse Ox 100% ; ll1 15:53 BP 230 / 106; ll1 18:00 BP 199 / 91; Pulse 72; Resp 18; Temp 98.2; ll1 18:22 BP 187 / 89; Pulse 70; Resp 18; Pulse Ox 97% on R/A; mb9 ED Course: 15:45 Patient arrived in ED. mr 15:47 Alice [facility]uel[facility]-C [facility]. kb 15:47 Elie Nicole MD is Attending Physician. kb 15:52 Triage completed. ll1 15:53 Arm band placed on. ll1 17:48 Patient placed in an exam room, on a stretcher. ll1 18:00 Bed in low position. Call light in reach. Side rails up X 1. Provided Education on: mb9 press call light if needing anything. Client placed on continuous cardiac and pulse oximetry monitoring. NIBP monitoring applied. 18:21 Kristie De La Cruz RN is Primary Nurse. mb9 18:21 No provider procedures requiring assistance completed. Patient did not have IV access mb9 during this emergency room visit. Administered Medications: 16:03 CANCELLED (Physician Discretion): lorazepam1 mg PO once kb 18:01 Drug: NIFEdipine PO 30 mg PO once Route: PO; 1 18:22 Follow up: Response: No adverse reaction mb9 18:01 Drug: carvedilol PO 25 mg PO once; administer with food Route: PO; ll1 18:22 Follow up: Response: No adverse reaction mb9 18:01 Drug: ALPRAZolam PO Tablet 0.25 mg PO once Route: PO; ll1 18:22 Follow up: Response: No adverse reaction mb9 Medication: 18:22 VIS not applicable for this client. mb9 Outcome: 18:09 Discharge ordered by MD. kb 18:21 Discharged to home ambulatory, mb9 18:21 Condition: stable 18:21 Discharge instructions given to patient, Instructed on discharge instructions, follow up and referral plans. Demonstrated understanding of instructions, follow-up care, medications, Prescriptions given X 2, 18:22 Patient left the ED. mb9 Signatures: Alice Brizuela, FIBER ARTIST-C FIBER ARTIST-CkKristie Pardo, [place] Reg Georgina Shah, RN RN ll1 Kristie De La Cruz, RN RN mb9 Corrections: (The following items were deleted from the chart) 18:01 18:00 BP 199 / 91; Pulse 72bpm; Resp 18bpm; ll1 ll1
[2025-02-02 23:50] VITALS: TEMP 98.2
[2025-02-02 23:51] VITALS: BP 187/89; O2SAT 97
== END 2025-02-02 18:22 | disposition home or self-care (01) ==
LOC: ER 15:42
DX: I10 Essential (primary) hypertension (principal); R53.83 Other fatigue
CPT/HCPCS: 99284

== ENCOUNTER 2025-05-11 03:31 | Inpatient (IN) | payer OTHER ==
[2025-05-11] MEDS ORDERED: HYDRALAZINE HCL 20 MG/ML VIAL ONE (04:24)
[2025-05-11] MEDS ORDERED: NIFEdipine 10 MG CAP ONE (04:24)
[2025-05-11] MEDS ORDERED: DIAZEPAM 5 MG TABLET ONE (04:25)
[2025-05-11 04:51] LABS: PT Prothrombin Time 14.2 SECONDS (10-13.0); Protime INR 1.27
[2025-05-11 04:52] LABS: Absolute Lymphocytes (CBC) 1.0 K/uL (0.7-4.9); Hematocrit 23.8 % (39.6-49.0); Hemoglobin 8.2 g/dL (13.6-17.9); MCH 30.8 pg (27.0-35.0); MCHC 34.4 g/dL (32.0-36.0); MCV 89.6 fL (80-100); MPV 8.6 fL (7.6-11.3); Nucleated RBC Absolute Count 0.0 (0-0); Nucleated Red Blood Cells % 0.0 % (0-0); RBC Red Blood Cell Count 2.65 M/uL (4.33-5.43); White Blood Count 5.20 thou/uL (4.3-10.9)
[2025-05-11 05:04] LABS: ALT/SGPT 18 U/L (16-61); Albumin 3.4 g/dL (3.4-5.0); Albumin/Globulin Ratio 0.9 (1.1-1.8); Alkaline Phosphatase 128 U/L (45-117); Anion Gap 13.8 mEq/L (5.0-15.0); BUN Blood Urea Nitrogen 52 mg/dL (7-18); Bilirubin Indirect, Calculated 0.4 mg/dL (0.2-0.8); Globulin 4.0 g/dL (2.3-3.5); Glucose Level 113 mg/dL (74-106); Magnesium 2.0 mg/dL (1.6-2.4); NT PRO-BNP 3668 pg/mL (<125); Potassium 4.8 mEq/L (3.5-5.1); Troponin High Sensitivity 23.7 pg/mL (<58.9)
[2025-05-11 05:05] LABS: AST/SGOT < 10 U/L (15-37)
--- NOTE | 2025-05-11 06:21 | RAD REPORT ---
CLINICAL HISTORY: Chest pain. COMPARISON: None. TECHNIQUE: XR CHEST 1 VIEW 05/11/2025 4:13 AM CDT FINDINGS: The heart is mildly enlarged. Lungs are clear without consolidation, atelectasis, mass or edema. Ther e is no pleural effusion. There is no pneumothorax. There are no acute osseous findings. IMPRESSION: Clear lungs. Electronically signed by: Nasir Koo MD 05/11/2025 06:01 AM CDT RP Due to temporary technical issues with the PACS/JustBook reporting system, reports are being mary ellen d by the in-house radiologist without review as a courtesy to ensure prompt reporting the interpreting radiologist is fully responsible for the content of the report Transcribed Date/Time: 05/11/2025 6:20 AM
--- NOTE | 2025-05-11 07:10 | EDPHYS ---
Physician Documentation [facility] Name: Kd Campbell Age: 70 yrs Sex: Male : 1955 Arrival Date: 05/11/2025 Time: 03:31 Bed 16 Private MD: ED Physician Tiago Major HPI: 05/11 04:12 This 70 yrs old Other Race Male presents to ER via Unassigned with complaints of High sp4 Blood Pressure, out of medication. 07:03 70-year-old male presents with complaint of elevated blood pressure out of his sp4 medication for the past 8 days.. Historical: - Allergies: 04:23 bee venom (honey bee); jj7 04:23 Clonidine; jj7 04:23 Depakote; jj7 04:23 Lexapro; jj7 04:23 PENICILLINS; jj7 04:23 Wellbutrin; jj7 04:23 HYDRALAZINE; jj7 - PMHx: 04:23 Anxiety; Hypertension; MANIC DEPRESSION; pnemonia; jj7 - Immunization history:: Adult Immunizations not up to date. - Infectious Disease History:: Denies. - Social history:: Smoking status: Patient reports the use of cigarette tobacco products, smokes one pack cigarettes per day. Patient uses alcohol, occasionally. Patient/guardian denies using street drugs, IV drugs. - Family history:: not pertinent. ROS: 07:03 Constitutional: Negative for fever, chills, and weight loss, positive for elevated sp4 blood pressure 07:03 All other systems are negative, Exam: 07:03 Constitutional: This is a well developed, well nourished patient who is awake, alert, sp4 and in no acute distress. Head/Face: Normocephalic, atraumatic. Eyes: Pupils equal round and reactive to light, extra-ocular motions intact. Lids and lashes normal. Conjunctiva and sclera are not injected. Cornea within normal limits. Periorbital areas with no swelling, redness, or edema. ENT: Nares patent. No nasal discharge, no septal abnormalities noted. Tympanic membranes are normal and external auditory canals are clear. Oropharynx with no redness, swelling, or masses, exudates, or evidence of obstruction, uvula midline. Mucous membranes moist. Neck: Trachea midline, no thyromegaly or masses palpated, and no cervical lymphadenopathy. Supple, full range of motion without nuchal rigidity, or vertebral point tenderness. Chest/axilla: Normal chest wall appearance and motion. Nontender with no deformity. No lesions are appreciated. Cardiovascular: Regular rate and rhythm with a normal S1 and S2. No gallops, murmurs, or rubs. No pulse deficits. Respiratory: Lungs have equal breath sounds bilaterally, clear to auscultation and percussion. No rales, rhonchi or wheezes noted. No increased work of breathing, no retractions or nasal flaring. Abdomen/GI: Soft, with normal bowel sounds. No distension or tympany. No guarding or rebound. No evidence of tenderness throughout. Back: No spinal tenderness. No costovertebral tenderness. Skin: Warm, dry with normal turgor. Normal color with no rashes, no lesions, and no evidence of cellulitis. MS/ Extremity: Pulses equal, no cyanosis. Neurovascular intact. Full, normal range of motion. Neuro: Awake and alert, GCS 15, oriented to person, place, time, and situation. Cranial nerves II-XII grossly intact. Motor strength 5/5 in all extremities. Sensory grossly intact. Psych: Awake, alert, with orientation to person, place and time. Behavior, mood, and affect are within normal limits 07:04 ECG was reviewed by the Attending Physician. EKG at 0 442 normal sinus rhythm prolonged sp4 QT rate 93 otherwise normal. Vital Signs: 04:00 BP 270 / 117; Pulse 108; Resp 20; Temp 98; Pulse Ox 100% ; Weight 86.18 kg; Height 5 jj7 ft. 6 in. ; 04:31 BP 253 / 99; Pulse 87; Resp 18; Pulse Ox 100% ; cp4 04:45 BP 213 / 78; Pulse 72; Resp 18; Pulse Ox 100% ; cp4 04:56 BP 141 / 63; Pulse 82; Resp 18; Pulse Ox 100% ; cp4 05:07 BP 137 / 68; Pulse 78; Resp 18; Pulse Ox 100% ; cp4 06:14 BP 142 / 65; Pulse 65; Resp 18; Pulse Ox 100% ; cp4 06:52 BP 138 / 62; Pulse 68; Resp 18; Pulse Ox 97% ; cp4 04:00 Body Mass Index 30.67 (86.18 kg, 167.64 cm) jj7 [place] Coma Score: 07:03 Eye Response: spontaneous(4). Motor Response: obeys commands(6). Verbal Response: sp4 oriented(5). Total: 15. MDM: 04:21 Medical Screening Exam initiated sp4 07:05 Differential diagnosis: hypertensive crisis, Malignant HTN, Acute renal failure. Data sp4 reviewed: vital signs, nurses notes, old medical records, lab test result(s), EKG, radiologic studies, plain films. ED course: COMPARISON: None. TECHNIQUE: XR CHEST 1 VIEW 05/11/2025 4:13 AM CDT FINDINGS: The heart is mildly enlarged. Lungs are clear without consolidation, atelectasis, mass or edema. There is no pleural effusion. There is no pneumothorax. There are no acute osseous findings. IMPRESSION: Clear lungs. . 07:06 Consideration of Admission/Observation Patient was admitted/placed on observation. sp4 Escalation of care including admission/observation considered. Management of patient was discussed with the following: Hospitalist: Corey LANGFORD . Stock Order Lister: José Miguel LANGFORD . ED course: Patient is acute on chronic renal failure also anemia hemoglobin 8.3. Rectal exam reveals no blood or melena. Most likely secondary to chronic kidney disease. Stable for admission for assessment by nephrology. . 05/11 04:13 Order name: Basic Metabolic Panel; Complete Time: 06:50 sp4 05/11 04:13 Order name: CBC with Diff; Complete Time: 06:50 sp4 05/11 04:13 Order name: LFT's; Complete Time: 06:50 sp4 05/11 04:13 Order name: Magnesium; Complete Time: 06:50 sp4 05/11 04:13 Order name: NT PRO-BNP; Complete Time: 06:50 sp4 05/11 04:13 Order name: PT-INR; Complete Time: 06:50 sp4 05/11 04:13 Order name: Troponin HS; Complete Time: 06:50 sp4 05/11 09:06 Order name: Hemoglobin A1c EDDE 05/11 09:06 Order name: Lipid Profile EDDE 05/11 04:13 Order name: XRAY Chest (1 view) sp4 05/11 04:13 Order name: EKG; Complete Time: 04:14 sp4 05/11 04:13 Order name: Cardiac monitoring; Complete Time: 04:32 sp4 05/11 04:13 Order name: EKG - Nurse/Tech; Complete Time: 04:49 sp4 05/11 04:13 Order name: IV Saline Lock; Complete Time: 04:32 sp4 05/11 04:13 Order name: Labs collected and sent; Complete Time: 04:32 sp4 05/11 04:13 Order name: O2 Per Protocol; Complete Time: 04:32 sp4 05/11 04:13 Order name: O2 Sat Monitoring; Complete Time: 04:32 sp4 EC:05 Rate is 93 beats/min. Rhythm is regular, Normal Sinus Rhythm. QRS [place] is Normal. VA sp4 interval is normal. QRS interval is normal. QT interval is prolonged. No Q waves. T waves are Normal. No ST changes noted. Clinical impression: No evidence of ischemia. Interpreted by me. Reviewed by me. Administered Medications: 04:32 Drug: hydrALAZINE IVP 20 mg IVP once; For SBP > 140 mmHg. Hold if less than 120 mmHg. cp4 Route: IVP; Site: left antecubital; 07:06 Follow up: Response: No adverse reaction cp4 04:32 Drug: Diazepam PO 5 mg PO once Route: PO; cp4 07:06 Follow up: Response: No adverse reaction cp4 04:32 Drug: carvedilol PO 25 mg PO once; administer with food Route: PO; cp4 07:06 Follow up: Response: No adverse reaction cp4 04:32 Drug: NIFEdipine PO 30 mg PO once Route: PO; cp4 07:07 Follow up: Response: No adverse reaction cp4 Disposition Summary: 05/11/25 07:10 Hospitalization Ordered Notes: Hospitalization Status: Inpatient Admission sp4 Provider: Huang Nicole4 Location: Telemetry/MedSurg (Inpatient) sp4 Condition: Serious sp4 Problem: new sp4 Symptoms: have improved sp4 Bed/Room Type: Standard sp4 Room Assignment: 427(05/11/25 11:04) bd Diagnosis - Hypertensive heart disease with heart failure sp4 - Acute on chronic renal failure, hypertensive emergency, sp4 - Anemia of chronic kidney disease, sp4 Forms: - Medication Reconciliation Form sp4 - SBAR form sp4 - Leadership Thank You Letter sp4 Signatures: Dispatcher [employer] EDMS DirKasia jade Juwairiyah, RN RN jj7 Tiago Major MD MD sp4 Natasha Samuels cp4 Corrections: (The following items were deleted from the chart) 07:10 corrina myrick
--- NOTE | 2025-05-11 07:10 | ER ---
Nurse's Notes [facility] Name: Kd Campbell Age: 70 yrs Sex: Male : 1955 Arrival Date: 05/11/2025 Time: 03:31 Bed 16 Private MD: Diagnosis: Hypertensive heart disease with heart failure;Acute on chronic renal failure, hypertensive emergency,;Anemia of chronic kidney disease, Presentation: 05/11 04:00 Chief complaint: Patient states: PT STATES HE RAN OUT OF HIS BP MEDS 8 DAYS AGO AND IT jj7 HAS BEEN VERY HIGH FOR THE LAST 2 DAYS. STATES HE HAS TO STAY WITH HIS GF WHO IS ON HOSPICE 22/04 SO HE HAS NOT MADE IT TO ANY OF HIS DOCTORS APPOINTMENTS SO THEY WILL NOT FILL ANY OF HIS MEDS. WAS TOLD TO COME TO ER TO GET ALL HIS MEDS REFILLED. Coronavirus screen: At this time, the client does not indicate any symptoms associated with coronavirus-19. Ebola Screen: No symptoms or risks identified at this time. Initial Sepsis Screen: Does the patient meet any 2 criteria? HR > 90 bpm. Yes Does the patient have a suspected source of infection? No. Patient's initial sepsis screen is negative. Risk Assessment: Do you want to hurt yourself or someone else? Patient reports no desire to harm self or others. Onset of symptoms was May 09, 2025. 04:00 Method Of Arrival: Ambulatory j7 04:00 Acuity: VOLODYMYR 3 jj7 Triage Assessment: 04:00 General: Appears in no apparent distress. comfortable, Behavior is calm, cooperative, jj7 appropriate for age. Cardiovascular: Reports HTN Denies chest pain, nausea, palpitations, HEADACHE. Historical: - Allergies: 04:23 bee venom (honey bee); jj7 04:23 Clonidine; jj7 04:23 Depakote; jj7 04:23 Lexapro; jj7 04:23 PENICILLINS; jj7 04:23 Wellbutrin; jj7 04:23 HYDRALAZINE; jj7 - PMHx: 04:23 Anxiety; Hypertension; MANIC DEPRESSION; pnemonia; jj7 - Immunization history:: Adult Immunizations not up to date. - Infectious Disease History:: Denies. - Social history:: Smoking status: Patient reports the use of cigarette tobacco products, smokes one pack cigarettes per day. Patient uses alcohol, occasionally. Patient/guardian denies using street drugs, IV drugs. - Family history:: not pertinent. Screenin:[address] [facility] ED Fall Risk Assessment (Adult) History of falling in the last 3 months, cp4 including since admission No falls in past 3 months (0 pts) Confusion or Disorientation No (0 pts) Intoxicated or Sedated No (0 pts) Impaired Gait No (0 pts) Mobility Assist Device Used No (0 pt) Altered Elimination No (0 pt) Score/Fall Risk Level 0 - 2 = Low Risk Oriented to surroundings, Maintained a safe environment, Assessed \T\ reinforced patient's understanding of fall precautions, Hourly rounding (assess needs \T\ fall precautionary measures) done. Abuse screen: Denies threats or abuse. Denies injuries from another. Nutritional screening: No deficits noted. Tuberculosis screening: No symptoms or risk factors identified. Assessment: 04:18 General: Appears in no apparent distress. comfortable, Behavior is calm, cooperative, cp4 appropriate for age. Pain: Denies pain. Neuro: Level of Consciousness is awake, alert, obeys commands, Oriented to person, place, time, situation. Cardiovascular: Patient's skin is warm and dry. Respiratory: Airway is patent Respiratory effort is even, unlabored. GI: No signs and/or symptoms were reported involving the gastrointestinal system. : No signs and/or symptoms were reported regarding the genitourinary system. EENT: No signs and/or symptoms were reported regarding the EENT system. Derm: No signs and/or symptoms reported regarding the dermatologic system. Musculoskeletal: No signs and/or symptoms reported regarding the musculoskeletal system. 10:00 Reassessment: Patient appears in no apparent distress at this time. Patient and/or db family updated on plan of care and expected duration. Pain level reassessed. Patient is alert, oriented x 3, equal unlabored respirations, skin warm/dry/pink. ADMITTED SEE [facility] DOCUMENTATION. Vital Signs: 04:00 BP 270 / 117; Pulse 108; Resp 20; Temp 98; Pulse Ox 100% ; Weight 86.18 kg; Height 5 jj7 ft. 6 in. ; 04:31 BP 253 / 99; Pulse 87; Resp 18; Pulse Ox 100% ; cp4 04:45 BP 213 / 78; Pulse 72; Resp 18; Pulse Ox 100% ; cp4 04:56 BP 141 / 63; Pulse 82; Resp 18; Pulse Ox 100% ; cp4 05:07 BP 137 / 68; Pulse 78; Resp 18; Pulse Ox 100% ; cp4 06:14 BP 142 / 65; Pulse 65; Resp 18; Pulse Ox 100% ; cp4 06:52 BP 138 / 62; Pulse 68; Resp 18; Pulse Ox 97% ; cp4 04:00 Body Mass Index 30.67 (86.18 kg, 167.64 cm) jj7 [place] Coma Score: 07:03 Eye Response: spontaneous(4). Motor Response: obeys commands(6). Verbal Response: sp4 oriented(5). Total: 15. ED Course: 03:34 Patient arrived in ED. gm2 04:00 Arm band placed on right wrist. Patient placed in an exam room, on a stretcher. jj7 04:12 Tiago Major MD is Attending Physician. sp4 04:23 Triage completed. jj7 04:24 Missed attempt(s): 20 gauge in right antecubital area. Bleeding controlled, band aid sa1 applied, catheter tip intact. 04:26 Inserted saline lock: 20 gauge in left antecubital area, using aseptic technique. Blood sa1 collected. Flushed with 10 mL NS. 04:26 Initial lab(s) drawn, by me, sent to lab. sa1 04:31 Natasha Samuels is Primary Nurse. cp4 04:53 XRAY Chest (1 view) In Process Unspecified. EDMS 07:07 Huang Nicole MD is Hospitalizing Provider. sp4 10:00 Patient has correct armband on for positive identification. Bed in low position. Call db light in reach. Side rails up X 1. Provided Education on: ADMISSION. Client placed on continuous cardiac and pulse oximetry monitoring. NIBP monitoring applied. fudger on. Pulse ox on. NIBP on. Warm blanket given. Pillow given. 11:20 No provider procedures requiring assistance completed. Patient admitted, IV remains in db place. 11:28 Primary Nurse role handed off by Natasha Samuels bd Administered Medications: 04:32 Drug: hydrALAZINE IVP 20 mg IVP once; For SBP > 140 mmHg. Hold if less than 120 mmHg. cp4 Route: IVP; Site: left antecubital; 07:06 Follow up: Response: No adverse reaction cp4 04:32 Drug: Diazepam PO 5 mg PO once Route: PO; cp4 07:06 Follow up: Response: No adverse reaction cp4 04:32 Drug: carvedilol PO 25 mg PO once; administer with food Route: PO; cp4 07:06 Follow up: Response: No adverse reaction cp4 04:32 Drug: NIFEdipine PO 30 mg PO once Route: PO; cp4 07:07 Follow up: Response: No adverse reaction cp4 Medication: 04:18 VIS not applicable for this client. cp4 Output: 07:28 Urine: 700ml; Total: 700ml. cp4 Outcome: 07:10 Decision to Hospitalize by Provider. sp4 10:00 Admitted to ER Hold. Please see [facility] for further documentation. db 10:00 Condition: stable 10:00 Instructed on the need for admit, 12:22 Patient left the ED. db Signatures: Dispatcher [employer] EDMS Kasia Fried Juwairiyah, RN RN jj7 Adelina Cruz RN RN db Potepalov, Sergey, MD MD sp4 Natasha Samuels cp4 Kialey Altman [address] [facility]
[2025-05-11] MEDS ORDERED: ACETAMINOPHEN 325 MG TABLET PO PRN (08:53)
[2025-05-11] MEDS ORDERED: ONDANSETRON 4 MG/2 ML VIAL IV PRN (09:10)
--- NOTE | 2025-05-11 09:38 | P.CNS ---
Date of Consult: 05/11/25 Reason for Consult: ARF on CKD IV, hypertensive urgency Requesting Physician: Tiago Major Chief Complaint: Shortness of breath, chest pain History of Present Illness: Pt is a 70 yo male with a chronic hx of malignant HTN, hypertensive heart and kidney disease, with some mild cardiomegaly, diastolic dysfunction and advanced CKD who has been lost to f/u in Nephrology clinic with Dr. Valdez since late who comes in to the hospital reporting some shortness of breath and mild chest pressure which he cites primarily as a anxiety episode as he reports stress related to his dying girlfriend who was on hospice and may have earlier today. Pt reports SAIDA and PTSD and is on a SSRI. He reports taking Nifedipine and Coreg for HTN and reports avg BP in the 180s. He denies weight gain, fluid retention or oligoanuria. Allergies venom-honey bee [bee venom (honey bee)] Allergy (Intermediate, Verified 01/31/12 03:10) Anaphylaxis Penicillins Allergy (Mild, Verified 09/26/12 21:52) Rash bupropion [From Wellbutrin] Allergy (Verified 04/14/16 23:15) Unknown bupropion HCl [From Zyban] Adverse Reaction (Intermediate, Verified 04/15/15 02:58) Nausea/Vomiting trazodone Adverse Reaction (Intermediate, Verified 01/31/12 03:11) Rash clonazepam [From Klonopin] Adverse Reaction (Verified 07/31/23 12:20) Hives clonidine Adverse Reaction (Verified 04/15/15 02:58) Shortness of breath cyclobenzaprine HCl [From Flexeril] Adverse Reaction (Verified 04/15/15 02:58) Nausea/Vomiting escitalopram oxalate [From Lexapro] Adverse Reaction (Verified 01/31/12 03:11) Rash hydralazine Adverse Reaction (Verified 07/31/23 12:12) Hives/Rash isosorbide Adverse Reaction (Verified 07/31/23 16:42) Hives/Rash Home Medications: Aspirin [Aspirin EC 81 MG] 81 mg PO DAILY 03/13/18 ALPRAZolam [Xanax*] 0.25 mg PO BID PRN 07/29/23 Cholecalciferol (Vitd3)/Vit K2 [Decara K 1,250-200 Mcg Softgel] 1 each PO ONCE 07/29/23 Doxepin HCl [Sinequan*] 10 mg PO BEDTIME 07/29/23 Famotidine [Pepcid] 20 mg PO DAILY 07/29/23 NIFEdipine [Nifedipine ER] 30 mg PO BID 07/29/23 Nitroglycerin 0.4 mg SL [id number] PRN 07/29/23 Sertraline [Zoloft*] 25 mg PO DAILY 07/29/23 Tamsulosin [Flomax*] 0.4 mg PO DAILY 07/29/23 Alprazolam [Xanax] 0.25 mg PO Q8H PRN #40 tab 07/31/23 Furosemide [Lasix*] 40 mg PO DAILY #30 tab 07/31/23 Isosorbide Dinit [Isordil*] 20 mg PO BID #60 tab 07/31/23 carvediloL [Coreg*] 25 mg PO BID 6AM 6PM #60 tab 07/31/23 - Past Medical/Surgical History Diabetic: No -: HTN -: Depression -: Anxiety -: Pnemonia -: CAD -: CKD IV followed by Dr. Valdez -: Angioplasty - Family History Mother Medical History: Hypertension, Cancer Father Medical History: Heart disease - Social History Smoking Status: Current some day smoker Alcohol use: No CD- Drugs: No Caffeine use: Yes Review of Systems General: As per HPI Eyes: Unremarkable ENT: Unremarkable Respiratory: Shortness of Breath, As per HPI Cardiovascular: Chest Pain, As per HPI Gastrointestinal: Unremarkable Genitourinary: Unremarkable Musculoskeletal: Other (chronic back pain) Integumentary: Unremarkable Neurological: Unremarkable Physical Examination General: Alert, In no apparent distress, Cooperative HEENT: Atraumatic, Normocephalic, Other (not on O2) Neck: Supple Respiratory: Clear to auscultation bilaterally, Normal air movement, Other (no rhonchi) Cardiovascular: No edema, Regular rate/rhythm, No gallops Gastrointestinal: Soft and benign, Non-distended, No ascites Musculoskeletal: No contractures, No tenderness Integumentary: No rashes Neurological: Normal speech, Normal tone, Normal affect Laboratory Data (last 24 hrs) 05/11/25 05/11/25 05/11/25 04:26 04:26 04:26 WBC 5.20 Hgb 8.2 L Hct 23.8 L Plt Count 234 PT 14.2 H INR 1.27 Sodium 137 Potassium 4.8 BUN 52 H Creatinine 5.45 H Glucose 113 H Magnesium 2.0 Total Bilirubin 0.6 AST < 10 L ALT 18 Alkaline Phosphatase 128 H Conclusions/Impression: A/P) 1. Sub-acute Stage III renal failure vs progression of underlying advanced CKD, prev Stage IV with Cr level > 4 mg/dl at one point back in , in the setting of malignant hypertensive nephrosclerosis, hx of sub nephrotic proteinuria, never biopsied but with prior neg serologic and other imaging w/u in . 2. No emergent indication for [employer] yet but risk for it discussed, pt is producing urine 3. Hypertensive urgency with hx of hypertensive heart and kidney disease, chronic diastolic CHF. No overt hypervolemia but at risk for pulm edema with increased afterload. Elevated BNP. Will place on nitro gtt to bring SBP < 170. Will administer IV lasix 4. Anemia 2nd to CKD, other -Hb < 10, trend closely for now 5. Dose meds for reduced CrCl
[2025-05-11] MEDS ORDERED: NITROGLYCERIN/D5W 50 MG/250 ML BTL IV SCH (10:00)
[2025-05-11] MEDS: FUROSEMIDE 20 MG/ 2ML VIAL IV ONE (10:38)
[2025-05-11] MEDS: LABETALOL 20 MG/4ML SYRINGE IV ONE (10:45)
[2025-05-11 10:59] VITALS: BMI 13.8
[2025-05-11] MEDS ORDERED: NITROGLYCERIN 0.4 MG/TAB SL PRN (11:08)
[2025-05-11] MEDS: FAMOTIDINE 20 MG TAB PO SCH (11:12)
[2025-05-11] MEDS ORDERED: TAMSULOSIN 0.4 MG SR CAP ONE (11:36)
[2025-05-11] MEDS ORDERED: FUROSEMIDE 20 MG/ 2ML VIAL ONE (11:37)
[2025-05-11] MEDS ORDERED: FAMOTIDINE 20 MG TAB ONE (11:37)
[2025-05-11] MEDS ORDERED: ASPIRIN EC 81 MG TAB PO ONE (11:37)
--- NOTE | 2025-05-11 11:47 | P.HP ---
Certification for Inpatient Patient admitted to: Inpatient With expected LOS: >2 Midnights Patient will require the following post-hospital care: None Practitioner: I am a practitioner with admitting privileges, knowledge of patient current condition, hospital course, and medical plan of care. Services: Services provided to patient in accordance with Admission requirements found in Title 42 Section 412.3 of the Code of Federal Regulations <Jimmie Lowe - Last Filed: 05/11/25 19:24> Patient History Date of Service: 05/11/25 Reason for admission: Shortness of breath, chest pain History of Present Illness: Patient is a 70-year-old male with a past medical history significant for hypertension, anxiety disorder, depression, nicotine dependence who presents with complaint of shortness of breath and elevated blood pressure. Patient reported that he ran out of his BP medications and his blood pressure has been elevated in the last 1 week. Patient reported associated signs and symptoms of headache and chills. Patient denies any other signs and symptoms. Symptoms are aggravated or relieved by nothing. Patient decided to present to the hospital due to worsening symptoms. - Past Medical/Surgical History Diabetic: No -: HTN -: Depression -: Anxiety -: Pnemonia -: CAD -: CKD IV followed by Dr. Valdez -: Angioplasty - Family History Mother -: Hypertension, Cancer Father -: Heart disease - Social History Smoking Status: Current every day smoker Counseled patient to stop smoking for: less than 10 minutes Smoking therapy provided: Yes Patient receptive to therapy: Yes Alcohol use: No CD- Drugs: No Caffeine use: Yes Place of Residence: Home <Jimmie Lowe Preeti - Last Filed: 05/11/25 19:24> Date of Service: 05/12/25 <Braulio Guzman - Last Filed: 05/12/25 06:34> Allergies venom-honey bee [bee venom (honey bee)] Allergy (Intermediate, Verified 01/31/12 03:10) Anaphylaxis Penicillins Allergy (Mild, Verified 09/26/12 21:52) Rash bupropion [From Wellbutrin] Allergy (Verified 04/14/16 23:15) Unknown bupropion HCl [From Zyban] Adverse Reaction (Intermediate, Verified 04/15/15 02:58) Nausea/Vomiting trazodone Adverse Reaction (Intermediate, Verified 01/31/12 03:11) Rash clonazepam [From Klonopin] Adverse Reaction (Verified 07/31/23 12:20) Hives clonidine Adverse Reaction (Verified 04/15/15 02:58) Shortness of breath cyclobenzaprine HCl [From Flexeril] Adverse Reaction (Verified 04/15/15 02:58) Nausea/Vomiting escitalopram oxalate [From Lexapro] Adverse Reaction (Verified 01/31/12 03:11) Rash hydralazine Adverse Reaction (Verified 07/31/23 12:12) Hives/Rash isosorbide Adverse Reaction (Verified 07/31/23 16:42) Hives/Rash Home Medications: NIFEdipine [Nifedipine ER] 30 mg PO DAILY 07/29/23 Nitroglycerin 0.4 mg SL Q5MX3 PRN 07/29/23 Sertraline [Zoloft*] 25 mg PO DAILY 07/29/23 Alprazolam [Xanax] 0.25 mg PO Q8H PRN #40 tab 07/31/23 Isosorbide Dinit [Isordil*] 20 mg PO BID #60 tab 07/31/23 carvediloL [Coreg*] 25 mg PO BID 6AM 6PM #60 tab 07/31/23 Review of Systems General: Chills Eyes: Unremarkable ENT: Unremarkable Respiratory: SOB with Excertion, Unremarkable Cardiovascular: Unremarkable Gastrointestinal: Unremarkable Genitourinary: Unremarkable Integumentary: Unremarkable Neurological: Other ([place]) Lymphatics: Unremarkable <Jimmie Lowe E - Last Filed: 05/11/25 19:24> Physical Examination - Vital Signs Temperature: 98 F Blood Pressure: 203/85 Pulse: 82 Respirations: 16 Pulse Ox (%): 99 - Physical Exam General: Alert, In no apparent distress, Oriented x3, Cooperative HEENT: Atraumatic, PERRLA, Mucous membr. moist/pink, EOMI, Sclerae nonicteric Neck: Supple, 2+ carotid pulse no bruit, No LAD, Without JVD or thyroid abnormality Respiratory: Clear to auscultation bilaterally, Normal air movement Cardiovascular: No edema, Regular rate/rhythm, Normal S1 S2 Capillary refill: <2 Seconds Gastrointestinal: Normal bowel sounds, Soft and benign, No tenderness Musculoskeletal: No clubbing, No tenderness Integumentary: No rashes Neurological: Normal gait, Normal speech, Normal strength at 5/5 x4 extr, Normal tone, Normal affect Lymphatics: No axilla or inguinal lymphadenopathy - Studies Laboratory Data (last 24 hrs) 05/11/25 05/11/25 05/11/25 04:26 04:26 04:26 WBC 5.20 Hgb 8.2 L Hct 23.8 L Plt Count 234 PT 14.2 H INR 1.27 Sodium 137 Potassium 4.8 BUN 52 H Creatinine 5.45 H Glucose 113 H Magnesium 2.0 Total Bilirubin 0.6 AST < 10 L ALT 18 Alkaline Phosphatase 128 H <Jimmie Lowe - Last Filed: 05/11/25 19:24> Assessment and Plan - Plan Hypertensive urgency. --Patient has been noncompliant due to running out of medications. --Continue home medications. --Hydralazine as needed for SBP greater than 160 mmHg. UTI POA --Patient placed on antibiotics. --Urine cultures pending. Anemia of chronic disease --H&H stable. --Transfuse if hemoglobin less than 7.0 WOJCIECH on CKD 3B. --Nephrology consulted. Recommendations appreciated GERD\insomnia\anxiety disorder\BPH\depression --Continue home medications Chronic diastolic CHF. --Continue home medications --Daily weight and strict I/O. Headache. --Tylenol as needed. Nicotine dependence. --Patient counseled on tobacco cessation. --Refuses nicotine patch. DVT prophylaxis with heparin subQ Discharge Plan: Home Plan to discharge in: Greater than 2 days - Advance Directives Does patient have a Living Will: No Does patient have a Durable POA for Healthcare: No - Code Status/Comfort Care Code Status Assessed: Yes Physician Review: Patient Assessed, Agree with Above Assessment and Plan Critical Care: No <Jimmie Lowe - Last Filed: 05/11/25 19:24> Physician Review: Patient Assessed, Agree with Above Assessment and Plan <Braulio Guzman - Last Filed: 05/12/25 06:34>
[2025-05-11] MEDS: ASPIRIN EC 81 MG TAB PO SCH (11:49)
[2025-05-11] MEDS: TAMSULOSIN 0.4 MG SR CAP PO SCH (11:49)
[2025-05-11] MEDS ORDERED: PNEUMOCOCCAL VACCINE 0.5 ML IMVAC ONE (12:00)
[2025-05-11] MEDS: ISOSORBIDE DINIT 20 MG TAB PO SCH (12:58)
[2025-05-11] MEDS: ALPRAZOLAM 0.25 MG TABLET PO PRN (12:58)
[2025-05-11] MEDS: SERTRALINE HCL 50 MG TAB PO SCH (12:59)
[2025-05-11 13:52] LABS: Sqamous Epithelial None Seen /HPF (None Seen); Urine Micro Reflex YN NO BILL MICROSCOPIC; Urine WBC Clump Few /HPF (None Seen); Urine Yeast (Budding) Trace /HPF (None Seen)
[2025-05-11 15:10] LABS: MA/CREAT RATIO 1764.3 (< 30.0); UR CREAT 28.0 mg/dL (20-370); UR MICROALBUMIN 49.4 mg/dL (< 1.9)
[2025-05-11 15:58] LABS: HDL Cholesterol 27.0 mg/dL (40-60); LDL Cholesterol, Calculated 50.0 mg/dL (<130); LDL Cholesterol,Calc NonReport 50.0
[2025-05-11 16:04] LABS: NT PRO-BNP 4180.0 pg/mL (<125); Thyroid Stimulating Hormone 1.38 uIU/mL (0.358-3.740)
[2025-05-11] MEDS: HYDRALAZINE HCL 20 MG/ML VIAL IV PRN (16:31)
[2025-05-11] MEDS: CEFTRIAXONE 1,000 MG in NA CHLORIDE 0.9% 50 ML IVPB SCH (16:31)
[2025-05-11] MEDS: NIFEDIPINE XL 30 MG TABLET PO SCH (20:01)
[2025-05-11] MEDS: DOXEPIN HCL 10 MG CAP PO SCH (20:01)
[2025-05-11] MEDS ORDERED: ISOSORBIDE DINIT 20 MG TAB PO SCH (21:00)
[2025-05-12] MEDS: HYDROCODONE/APAP 5/325 MG TAB PO PRN (00:55)
[2025-05-12] MEDS: HYDROCODONE/APAP 10/325 TAB PO ONE (03:01)
[2025-05-12 04:41] LABS: Absolute Lymphocytes (CBC) 1.0 K/uL (0.7-4.9); Hematocrit 21.6 % (39.6-49.0); Hemoglobin 7.5 g/dL (13.6-17.9); MCH 31.2 pg (27.0-35.0); MCHC 35.0 g/dL (32.0-36.0); MCV 89.2 fL (80-100); MPV 8.3 fL (7.6-11.3); Nucleated RBC Absolute Count 0.0 (0-0); Nucleated Red Blood Cells % 0.1 % (0-0); RBC Red Blood Cell Count 2.42 M/uL (4.33-5.43); White Blood Count 5.80 thou/uL (4.3-10.9)
[2025-05-12 05:39] LABS: Anion Gap 13.9 mEq/L (5.0-15.0); BUN Blood Urea Nitrogen 52.0 mg/dL (7-18); Glucose Level 120.0 mg/dL (74-106); Potassium 3.9 mEq/L (3.5-5.1)
[2025-05-12] MEDS: POTASSIUM CL SA 10 MEQ TAB PO ONE (05:48)
[2025-05-12] MEDS: FUROSEMIDE 40 MG TABLET PO SCH (08:43)
[2025-05-12] MEDS ORDERED: TAMSULOSIN 0.4 MG SR CAP PO SCH (09:00)
[2025-05-12] MEDS ORDERED: FAMOTIDINE 20 MG TAB PO SCH (09:00)
[2025-05-12] MEDS ORDERED: SERTRALINE HCL 50 MG TAB PO SCH (09:00)
[2025-05-12] MEDS ORDERED: ASPIRIN EC 81 MG TAB PO SCH (09:00)
--- NOTE | 2025-05-12 10:30 | P.PN ---
Nephrology note (S) BP has slowly improved over the past 24h, pt tolerating current med regimen, no acute CP or dyspnea, no overt uremic symptoms yet but discussed in detail his low GFR state and the risk for PRINCIPAL LIBRARIAN in the near term future even if currently avoided. (O) Vitals reviewed in the EMR General: Alert, In no apparent distress, Cooperative HEENT: Atraumatic, Normocephalic, Other (not on O2) Neck: Supple Respiratory: Clear to auscultation bilaterally, Normal air movement, Other (no rhonchi) Cardiovascular: No edema, Regular rate/rhythm, No gallops Gastrointestinal: Soft and benign, Non-distended, No ascites Musculoskeletal: No contractures, No tenderness Integumentary: No rashes Neurological: Normal speech, Normal tone, Normal affect Laboratory Data (last 24 hrs) Reviewed in the EMR Conclusions/Impression: A/P) 1. Sub-acute Stage III renal failure vs progression of underlying advanced CKD, prev Stage IV with Cr level > 4 mg/dl at one point back in , in the setting of malignant hypertensive nephrosclerosis, hx of sub nephrotic proteinuria, never biopsied but with prior neg serologic and other imaging w/u in . 2. No emergent indication for PRINCIPAL LIBRARIAN yet but risk for it discussed, pt is producing urine, no over uremic symptoms, pt educated about PRINCIPAL LIBRARIAN but has poor insight into this disease processes and stressed the imp of close f/u in clinic for dialysis planning measures over the next few weeks 3. Hypertensive urgency with hx of hypertensive heart and kidney disease, chronic diastolic CHF. No overt hypervolemia but at risk for pulm edema with increased afterload. Elevated BNP. BP has improved, cont current regimen, no SOLA inhibitors currently due to the low GFR state, can initiate once on HD 4. Anemia 2nd to CKD, other -Hb < 10, trend closely for now, no urgent need for transfusion, if he follows up in clinic, will refer for BETTY therapy once BP controlled 5. UTI NOS, POA, pyuria -will compelete out empiric Abx course while awaiting final cx
[2025-05-12] MEDS: SODIUM BICARB 325 MG TAB PO SCH (10:33)
--- NOTE | 2025-05-12 11:16 | P.DS ---
Admission Date: 05/11/25 Discharge Date: 05/12/25 Disposition: ROUTINE DISCHARGE Discharge Condition: GOOD Reason for Admission: Shortness of breath, chest pain Brief History of Present Illness: Patient is a 70-year-old male with a past medical history significant for hypertension, anxiety disorder, depression, nicotine dependence who presents with complaint of shortness of breath and elevated blood pressure. Patient reported that he ran out of his BP medications and his blood pressure has been elevated in the last 1 week. Patient reported associated signs and symptoms of headache and chills. Patient denies any other signs and symptoms. Symptoms are aggravated or relieved by nothing. Patient decided to present to the hospital due to worsening symptoms. Upon admission nephrology was consulted. He was started on Procardia, clonidine, sodium bicarb, ferrous sulfate, Lasix, and Coreg. His blood pressure and shortness of breath improved. 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 Patient has had a complicated social life and has been stressed recently. Patient has been advised to adhere to the medication prescribed and follow-up at the nephrology clinic. He is stable for discharge Hospital Course: Physical Examination - Vital Signs Temperature: 98 F Blood Pressure: 203/85 Pulse: 82 Respirations: 16 Pulse Ox (%): 99 - Physical Exam General: Alert, In no apparent distress, Oriented x3, Cooperative HEENT: Atraumatic, PERRLA, Mucous membr. moist/pink, EOMI, Sclerae nonicteric Neck: Supple, 2+ carotid pulse no bruit, No LAD, Without JVD or thyroid abnormality Respiratory: Clear to auscultation bilaterally, Normal air movement Cardiovascular: No edema, Regular rate/rhythm, Normal S1 S2 Capillary refill: <2 Seconds Gastrointestinal: Normal bowel sounds, Soft and benign, No tenderness Musculoskeletal: No clubbing, No tenderness Integumentary: No rashes Neurological: Normal gait, Normal speech, Normal strength at 5/5 x4 extr, Normal tone, Normal affect Lymphatics: No axilla or inguinal lymphadenopathy - Studies Laboratory Data (last 24 hrs) Alkaline Phosphatase 128 H Assessment and Plan - Plan Hypertensive urgency. --Patient has been noncompliant due to running out of medications. --Continue home medications. --Hydralazine as needed for SBP greater than 160 mmHg. -- Sodium bicarb, Procardia twice daily, tamsulosin daily, and ferrous sulfate on discharge UTI POA --Patient placed on antibiotics. --Urine cultures pending -- Discharge home on Omnicef Anemia of chronic disease --H&H stable. --Transfuse if hemoglobin less than 7.0 WOJCIECH on CKD 3B. --Nephrology consulted. Recommendations appreciated GERD\insomnia\anxiety disorder\BPH\depression --Continue home medications Chronic diastolic CHF. --Continue home medications --Daily weight and strict I/O. Headache. --Tylenol as needed. Nicotine dependence. --Patient counseled on tobacco cessation. --Refuses nicotine patch. DVT prophylaxis with heparin subQ Discharge Plan: Home and follow-up with nephrology Plan to discharge in: Greater than 2 days - Advance Directives Does patient have a Living Will: No Does patient have a Durable POA for Healthcare: No - Code Status/Comfort Care Code Status Assessed: Yes Vital Signs/Physical Exam: Temp Pulse Resp BP Pulse Ox 97.5 F 63 18 148/64 H 93 05/12/25 08:00 05/12/25 08:43 05/12/25 10:32 05/12/25 08:43 05/12/25 10:32 Laboratory Data at Discharge: WBC 5.80 thou/uL (4.3-10.9) 05/12/25 04:03 Hgb 7.5 g/dL (13.6-17.9) L D 05/12/25 04:03 Hct 21.6 % (39.6-49.0) L 05/12/25 04:03 Plt Count 253 thou/uL (152-406) 05/12/25 04:03 PT 14.2 SECONDS (10-13.0) H 05/11/25 04:26 INR 1.27 05/11/25 04:26 Sodium 135 mEq/L (136-145) L 05/12/25 04:03 Potassium 3.9 mEq/L (3.5-5.1) D 05/12/25 04:03 BUN 52 mg/dL (7-18) H 05/12/25 04:03 Creatinine 5.23 mg/dL (0.70-1.30) H 05/12/25 04:03 Glucose 120 mg/dL (74-106) H 05/12/25 04:03 Phosphorus 4.4 mg/dL (2.5-4.9) 05/12/25 04:03 Magnesium 2.0 mg/dL (1.6-2.4) 05/11/25 04:26 Total Bilirubin 0.6 mg/dL (0.2-1.0) 05/11/25 04:26 AST < 10 U/L (15-37) L 05/11/25 04:26 ALT 18 U/L (16-61) 05/11/25 04:26 Alkaline Phosphatase 128 U/L (45-117) H 05/11/25 04:26 Triglycerides 195 mg/dL (<150) H 05/11/25 15:31 Cholesterol 116 mg/dL (<200) 05/11/25 15:31 HDL Cholesterol 27 mg/dL (40-60) L 05/11/25 15:31 Cholesterol/HDL Ratio 4.30 05/11/25 15:31 Home Medications: Nitroglycerin 0.4 mg SL Q5MX3 PRN 07/29/23 Sertraline [Zoloft*] 25 mg PO DAILY 07/29/23 Alprazolam [Xanax] 0.25 mg PO Q8H PRN #40 tab 07/31/23 Isosorbide Dinit [Isordil*] 20 mg PO BID #60 tab 07/31/23 carvediloL [Coreg*] 25 mg PO BID 6AM 6PM #60 tab 07/31/23 Cefdinir [Omnicef] 300 mg PO DAILY 7 Days #7 cap 05/12/25 Ferrous Sulfate [Ferrous Sulfate*] 325 mg PO DAILY 30 Days #30 tab 05/12/25 Na Bicarb Tab [Sodium Bicarb 325 MG Tab*] 650 mg PO BID 30 Days #60 tab 05/12/25 Nifedipine Xl [Procardia Xl*] 30 mg PO BID 30 Days #60 tab 05/12/25 Tamsulosin [Flomax*] 0.4 mg PO DAILY 30 Days #30 cap 05/12/25 New Medications: Ferrous Sulfate [Ferrous Sulfate*] 325 mg PO DAILY 30 Days #30 tab Tamsulosin [Flomax*] 0.4 mg PO DAILY 30 Days #30 cap Cefdinir [Omnicef] 300 mg PO DAILY 7 Days #7 cap Nifedipine Xl [Procardia Xl*] 30 mg PO BID 30 Days #60 tab Na Bicarb Tab [Sodium Bicarb 325 MG Tab*] 650 mg PO BID 30 Days #60 tab Physician Discharge Instructions: PROBLEM: 1. Sub-acute Stage III renal failure vs progression of underlying advanced CKD, prev Stage IV with Cr level > 4 mg/dl at one point back in , in the setting of malignant hypertensive nephrosclerosis, hx of sub nephrotic proteinuria, never biopsied but with prior neg serologic and other imaging w/u in . 2. 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 Hypertensive urgency with hx of hypertensive heart and kidney disease, chronic diastolic CHF. No overt hypervolemia but at risk for pulm edema with increased afterload. Elevated BNP. BP has improved, cont current regimen, no SOLA inhibitors currently due to the low GFR state, can initiate once on HD 4. Anemia 2nd to CKD, other -Hb < 10, trend closely for now, no urgent need for transfusion, if he follows up in clinic, will refer for BETTY therapy once BP controlled 5. UTI NOS, POA, pyuria -will compelete out empiric Abx course while awaiting final cx GOAL: Clear understanding of disease process INSTRUCTIONS: Follow up with Nephrology. Call Dr. Ash for an appointment. Diet: Renal diet Activity: As tolerated If symptoms worsen call 911 or return to ER. For questions or further questions regarding your stay, call nurses station at [phone]. IMMUNIZATION Influenza Vaccine Indicated: Influenza Vaccine Given: Date Given: Pneumonia Vaccine Indicated: Yes Pneumonia Vaccine Given: Date Given: Followup: Weston Ash [ACTIVE - CAN ADMIT] - 1-2 Days NONE,NONE [Primary Care Provider] -
[2025-05-12 16:23] VITALS: BP 150/68; TEMP 97.7
[2025-05-12 17:29] VITALS: O2SAT 90
[2025-05-13] MEDS ORDERED: FERROUS SULFATE 325 MG TAB PO SCH (09:00)
== END 2025-05-12 18:30 | disposition home or self-care (01) | DRG 305 ==
LOC: ER 03:31 → ERHOLD 08:55 → 4TH 11:34
PROVIDERS: ADMIT Family Medicine; ATTEND Family Medicine
DX: I16.0 Hypertensive urgency (principal); N39.0 Urinary tract infection, site not specified; I50.32 Chronic diastolic (congestive) heart failure; N17.9 Acute kidney failure, unspecified; I16.1 Hypertensive emergency; D63.1 Anemia in chronic kidney disease; I13.0 Hypertensive heart and chronic kidney disease with heart failure and stage 1 through stage 4 chronic kidney disease, or unspecified chronic kidney disease; N18.32 Chronic kidney disease, stage 3b; K21.9 Gastro-esophageal reflux disease without esophagitis; G47.00 Insomnia, unspecified; N40.0 Benign prostatic hyperplasia without lower urinary tract symptoms; F32.A Depression, unspecified; R51.9 Headache, unspecified; Z71.6 Tobacco abuse counseling; Z79.2 Long term (current) use of antibiotics; Z88.0 Allergy status to penicillin; Z88.8 Allergy status to other drugs, medicaments and biological substances; Z91.030 Bee allergy status; F17.210 Nicotine dependence, cigarettes, uncomplicated; F41.1 Generalized anxiety disorder; F43.12 Post-traumatic stress disorder, chronic; Z79.82 Long term (current) use of aspirin; Z79.899 Other long term (current) drug therapy; I25.10 Atherosclerotic heart disease of native coronary artery without angina pectoris; Z87.01 Personal history of pneumonia (recurrent); M54.9 Dorsalgia, unspecified; G89.29 Other chronic pain; Z91.148 Patient's other noncompliance with medication regimen for other reason
CPT/HCPCS: 36415; 71045; 80048; 80061; 80076; 81001; 82043; 82570; 83036; 83735; 83880; 83970; 84100; 84439; 84443; 84484; 85025; 85610; 93005; 96374; 99285; J0360; J0696; J1938

== ENCOUNTER 2025-07-02 16:54 | Emergency (ER) | payer OTHER ==
[2025-07-02 17:41] LABS: Absolute Lymphocytes (CBC) 1.5 K/uL (0.7-4.9); Hematocrit 31.5 % (39.6-49.0); Hemoglobin 11.0 g/dL (13.6-17.9); MCH 30.7 pg (27.0-35.0); MCHC 35.0 g/dL (32.0-36.0); MCV 87.7 fL (80-100); MPV 8.2 fL (7.6-11.3); Nucleated RBC Absolute Count 0.0 (0-0); Nucleated Red Blood Cells % 0.1 % (0-0); RBC Red Blood Cell Count 3.59 M/uL (4.33-5.43); White Blood Count 7.50 thou/uL (4.3-10.9)
[2025-07-02 17:47] LABS: PT Prothrombin Time 12.4 SECONDS (10-13.0); Protime INR 1.1
[2025-07-02] MEDS ORDERED: LABETALOL 20 MG/4ML SYRINGE IV ONE (17:58)
[2025-07-02 18:05] LABS: ALT/SGPT 16 U/L (16-61); AST/SGOT < 10 U/L (15-37); Albumin 3.7 g/dL (3.4-5.0); Albumin/Globulin Ratio 0.9 (1.1-1.8); Alkaline Phosphatase 178 U/L (45-117); Anion Gap 15.4 mEq/L (5.0-15.0); BUN Blood Urea Nitrogen 82 mg/dL (7-18); Bilirubin Indirect, Calculated 0.1 mg/dL (0.2-0.8); Globulin 4.3 g/dL (2.3-3.5); Glucose Level 97 mg/dL (74-106); Magnesium 2.2 mg/dL (1.6-2.4); NT PRO-BNP 3357 pg/mL (<125); Potassium 4.4 mEq/L (3.5-5.1); Troponin High Sensitivity 30.7 pg/mL (<58.9)
--- NOTE | 2025-07-02 18:17 | RAD REPORT ---
EXAM: Chest Single View HISTORY: 70 years Male htn COMPARISON: No prior exams FINDINGS: LUNGS/PLEURA: The lungs are clear. No pleural effusions or pneumothorax. No pulmonary edema. CARDIAC/MEDIASTINUM: Mild cardiomegaly. Question enlarged main pulmonary arteries which could indicat e pulmonary artery hypertension. UPPER ABDOMEN: No significant abnormality. BONES: No acute abnormality. LINES/TUBES/OTHER: N/A IMPRESSION: No evidence of acute cardiopulmonary disease.
--- NOTE | 2025-07-02 19:01 | RAD REPORT ---
EXAMINATION: Head Brain Wo Cont CLINICAL INDICATION: Male, 70 years old.HEADACHE TECHNIQUE: Axial CT images from the skull base to the vertex without intravenous contrast. Coronal an d sagittal reformatted images were created from the data set. One or more of the following dose reduction techniques were used: Automated exposure control, adjustment of the mA and/or kV according to patient size, and/or iterative reconstruction. Unless otherwise specified, incidental findings do not require dedicated imaging follow-up. [id number]. COMPARISON: 07/28/2023 FINDINGS: INTRACRANIAL: No acute intracranial hemorrhage. No acute large vascular territory infarct. No hydroce phalus. No mass effect or midline shift. Moderate chronic small vessel ischemic changes. VASCULATURE: No visualized abnormalities in the arteries or dural venous sinuses. SCALP/SKULL: No calvarial fracture identified. No acute soft tissue abnormality. SINUSES: The visualized paranasal sinuses are mostly clear. No significant mastoid fluid. IMPRESSION: No acute intracranial abnormality.
[2025-07-02 19:45] LABS: Sqamous Epithelial <5 /HPF (None Seen); Urine Crystals Unidentified Few /HPF (None Seen); Urine Culture Reflex Order NOT NEEDED; Urine Microscopic Reflex YN ORDER UMIC
[2025-07-02] MEDS ORDERED: HYDRALAZINE HCL 20 MG/ML VIAL ONE (19:56)
[2025-07-02] MEDS ORDERED: DIAZEPAM 5 MG TABLET ONE (19:56)
[2025-07-02 20:01] LABS: METHAMPHETAM NEGATIVE (NEGATIVE); THC Cannibis NEGATIVE (NEGATIVE)
--- NOTE | 2025-07-02 22:32 | EDPHYS ---
Physician Documentation [facility] Name: Kd Campbell Age: 70 yrs Sex: Male : 1955 Arrival Date: 07/02/2025 Time: 16:54 Bed 18 Private MD: ED Physician Sendy Ornelas HPI: 07/02 17:20 This 70 yrs old Male presents to ER via Ambulatory with complaints of High Blood cp Pressure. 17:20 The patient has elevated blood pressure and discovered this at home, with a home device.cp 17:20 Associated signs and symptoms: Pertinent positives: headache, Pertinent negatives: cp chest pain. 17:20 Patient reports running out of prescribed blood pressure medications four days ago. cp 17:20 Severity of symptoms: At its worst the blood pressure was 252 mm Hg, in the emergency cp department the blood pressure is unchanged. 17:20 The patient has experienced similar episodes in the past, multiple times. cp Historical: - Allergies: 17:09 bee venom (honey bee); dd2 17:09 Clonidine; dd2 17:09 Depakote; dd2 17:09 HYDRALAZINE; dd2 17:09 Lexapro; dd2 17:09 PENICILLINS; dd2 17:09 Wellbutrin; dd2 - Home Meds: 17:09 carvedilol 25 mg Oral tab 1 tab 2 times per day [Active]; nifedipine 30 mg Oral tablet dd2 twice a day [Active]; - PMHx: 17:09 Anxiety; Hypertension; MANIC DEPRESSION; pnemonia; dd2 - PSHx: 17:09 None; dd2 - Immunization history:: Adult Immunizations unknown. - Infectious Disease History:: Denies. - Social history:: Smoking status: Patient reports the use of cigarette tobacco products, smokes one-half pack cigarettes per day. ROS: 17:25 Constitutional: Negative for body aches, chills, fever, poor PO intake, cp 17:25 Cardiovascular: Negative for chest pain, edema, palpitations, 17:25 Eyes: Negative for injury, pain, redness, and discharge, cp 17:25 ENT: Negative for drainage from ear(s), ear pain, sore throat, difficulty swallowing, difficulty handling secretions, 17:25 Respiratory: Negative for cough, shortness of breath, wheezing, cp 17:25 Abdomen/GI: Negative for abdominal pain, vomiting, diarrhea, constipation, 17:25 Neuro: Positive for headache, Negative for altered mental status, dizziness, numbness, cp syncope, weakness, 17:25 All other systems are negative, Exam: 17:30 Constitutional: The patient appears in no acute distress, alert, awake, cp non-diaphoretic, non-toxic, well developed, well nourished, 17:30 Head/Face: Normocephalic, atraumatic. cp 17:30 Eyes: Periorbital structures: appear normal, Pupils: equal, round, and reactive to cp light and accomodation, Conjunctiva: normal, no exudate, no injection, Sclera: no appreciated abnormality, Lids and lashes: appear normal, bilaterally, 17:30 ENT: External ear(s): are unremarkable, Nose: is normal, Mouth: Lips: moist, Oral cp mucosa: moist, Posterior pharynx: Airway: no evidence of obstruction, patent, 17:30 Neck: ROM/movement: is normal, is supple, without pain, no range of motions limitations, 17:30 Chest/axilla: Inspection: normal, 17:30 Cardiovascular: Rate: tachycardic, Rhythm: regular, Edema: ankle edema, that is very mild, JVD: is not appreciated, 17:30 Respiratory: the patient does not display signs of respiratory distress, Respirations: normal, no use of accessory muscles, no retractions, labored breathing, is not present, Breath sounds: are clear throughout, no decreased breath sounds, no stridor, no wheezing, 17:30 Abdomen/GI: Inspection: abdomen appears normal, Palpation: abdomen is soft and non-tender, in all quadrants, 17:30 Neuro: Orientation: to person, place \T\ time. Mentation: able to follow commands, Cerebellar function: Romberg testing is negative, Motor: moves all fours, strength is normal, Sensation: no obvious gross deficits, Gait: is steady, 17:35 ECG was reviewed by the Attending Physician. cp Vital Signs: 17:07 BP 252 / 103; Pulse 108; Resp 17; Temp 98.3; Pulse Ox 99% on R/A; Weight 86.18 kg; dd2 Height 5 ft. 6 in. ; Pain 3/10; 17:36 BP 211 / 91; Pulse 77; Resp 16; Pulse Ox 100% on R/A; iw 18:00 BP 195 / 91; Pulse 74; Resp 18; Pulse Ox 98% on R/A; kj2 18:18 BP 208 / 89; Pulse 65; Resp 20; Pulse Ox 100% on R/A; kj2 19:22 BP 233 / 81; Pulse 64; Resp 18; Pulse Ox 100% ; kj2 19:25 BP 217 / 80; Pulse 66; Resp 18; Pulse Ox 100% ; kj2 20:31 BP 213 / 85; Pulse 72; Resp 18; Pulse Ox 100% on R/A; kj2 20:55 BP 202 / 81; Pulse 65; Resp 18; kj2 21:46 BP 183 / 72; Pulse 68; Resp 18; Pulse Ox 98% ; kj2 22:50 BP 181 / 70; Pulse 70; Resp 20; Temp 98.2; Pulse Ox 100% ; kj2 17:07 Body Mass Index 30.67 (86.18 kg, 167.64 cm) dd2 17:07 Pain Scale: Adult dd2 MDM: 17:02 Medical Screening Exam initiated 19:00 Differential diagnosis: hypertensive crisis, Malignant HTN, CVA, intracerebral cp hemorrhage. 22:30 Data reviewed: vital signs, nurses notes, lab test result(s), EKG, radiologic studies, cp CT scan, plain films. 22:30 I considered the following discharge prescriptions or medication management in the emergency department Medications were administered in the Emergency Department. See MAR. Independent interpretation of the following test(s) in the Emergency Department EKG: See my EKG interpretation above X-Ray: My interpretation is chest xray negative for infiltrates. Test considered but Not performed: Ultrasound renal artery. Care significantly affected by the following chronic conditions: Hypertension, Chronic Kidney Disease. Counseling: I had a detailed discussion with the patient and/or guardian regarding the historical points, exam findings, and any diagnostic results supporting the discharge/admit diagnosis, the presence of at least one elevated blood pressure reading (>120/80) during this emergency department visit, lab results, the need for further work-up and treatment in the hospital. Response to treatment: the patient's symptoms have mildly improved after treatment. Refusal of service: The patient/guardian displays adequate decision making capability and despite a detailed discussion of alternatives, benefits, risks, and consequences refuses: Admission to the hospital for further work-up and treatment. ED course: discussed concern blood pressure remains elevated after IV medications and recommendation to admit for continued treatment and nephrology consult. 07/02 17:15 Order name: Basic Metabolic Panel; Complete Time: 19:26 cp 07/02 19:26 Interpretation: Normal except: NA 135; CL 108; CO2 16; ANION GAP 15.4; BUN 82; CRE cp 5.47; GFR 11; CA 8.0. 07/02 17:15 Order name: CBC with Diff; Complete Time: 17:52 cp 07/02 17:52 Interpretation: Normal except: RBC 3.59; HGB 11.0; HCT 31.5; RDW 15.7; EOSINOPHIL % 4.7.cp 07/02 17:15 Order name: LFT's; Complete Time: 19:26 cp 07/02 19:26 Interpretation: Normal except: AST < 10; ALK 178; IBILI, CALC 0.1; GLOB 4.3; A/G 0.9. cp 07/02 17:15 Order name: Magnesium; Complete Time: 19:26 cp 07/02 17:15 Order name: NT PRO-BNP; Complete Time: 19:26 cp 07/02 19:26 Interpretation: Abnormal: NT PRO-BNP 3357. cp 07/02 17:15 Order name: PT-INR; Complete Time: 17:52 cp 07/02 17:15 Order name: Troponin HS; Complete Time: 19:26 cp 07/02 17:15 Order name: UA Rfx Paulo Cult if indicated; Complete Time: 20:54 cp 07/02 19:43 Order name: UDS; Complete Time: 20:54 cp 07/02 17:15 Order name: XRAY Chest (1 view); Complete Time: 19:26 cp 07/02 17:52 Order name: CT Head Brain wo Cont; Complete Time: 19:26 cp 07/02 17:15 Order name: EKG; Complete Time: 17:15 cp 07/02 17:15 Order name: Cardiac monitoring; Complete Time: 17:31 cp 07/02 17:15 Order name: EKG - Nurse/Tech; Complete Time: 17:31 cp 07/02 17:15 Order name: IV Saline Lock; Complete Time: 17:36 cp 07/02 17:15 Order name: Labs collected and sent; Complete Time: 17:36 cp 07/02 17:15 Order name: O2 Per Protocol; Complete Time: 17:31 cp 07/02 17:15 Order name: O2 Sat Monitoring; Complete Time: 17:31 cp EC:35 Rate is 80 beats/min. Rhythm is regular. MS interval is normal. QRS interval is normal. cp QT interval is normal. T waves are Inverted in leads aVL, aVR. Interpreted by me. Reviewed by me. Administered Medications: 18:06 Drug: Labetalol IV 20 mg IV at calculated rate once over 2 mins Route: IV; Rate: kj2 calculated rate; Infused Over: 2 mins; Site: left antecubital; 22:34 Follow up: IV Status: Completed infusion; IV Intake: 4ml kj2 20:00 Not Given (Patient Refused): [id number] mg IVP once kj2 20:00 Drug: Diazepam PO 5 mg PO once Route: PO; kj2 22:34 Follow up: Response: No adverse reaction kj2 21:01 Drug: Diltiazem IVP 20 mg IVP once; Over 2 minutes Route: IVP; Site: left antecubital; kj2 22:35 Follow up: Response: No adverse reaction kj2 22:34 Drug: carvedilol PO 25 mg PO once; administer with food Route: PO; kj2 22:35 Follow up: Response: Medication administered at discharge. kj2 23:03 Follow up: Response: No adverse reaction kj2 Disposition Summary: 07/02/25 22:31 Discharge Ordered Notes: Location: Home cp Problem: an acute exacerbation cp Symptoms: have improved cp Condition: Stable cp Diagnosis - Hypertensive heart and chronic kidney disease with heart failure and stage 1 cp through stage 4 chronic kidney disease, or unspecified chronic kidney disease - Encounter for issue of repeat prescription cp - Headache cp Followup: cp - With: Private Physician - When: 2 - 3 days - Reason: uncontrolled hypertension Followup: cp - With: Ben Valdez DO - When: 2 - 3 days - Reason: chronic kidney disease Discharge Instructions: - Discharge Summary Sheet cp - Heart Failure, Diagnosis cp - Hypertension, Adult cp - Medicine Refill at the Emergency Department cp - Food Basics for Chronic Kidney Disease cp - Basics of Medicine Management cp - Chronic Kidney Disease, Adult, [id number] cp - Chronic Kidney Disease, Adult cp Forms: - Medication Reconciliation Form cp - Antibiotic Education cp - Prescription Opioid Use cp - Patient Portal Instructions cp - Leadership Thank You Letter cp Prescriptions: - carvedilol 25 mg Oral tablet - take 1 tablet ORAL route once daily must administer with a meal/food; 30 cp tablet; Refills: 0, Product Selection Permitted - nifedipine 30 mg Oral Tablet, Extended Release 24 hr - take 1 tablet ORAL route daily; 30 tablet; Refills: 0, Product Selection cp Permitted Signatures: Dispatcher [employer] EDMS Jameson Pennington PA-C PA-C cp Jordan, Krystal, RN RN kj2 JASBIR ROBERTSON RN RN dd2 Corrections: (The following items were deleted from the chart) 19:43 19:43 URINE DRUG SCREEN+.LAB.BRZ ordered. EDWA EDMS 07/03 02:55 07/02 17:55 Constitutional: Negative for body aches, chills, fever, poor PO intake, cp cp 07/03 02:55 07/02 17:55 Cardiovascular: Negative for chest pain, edema, palpitations, cp cp
--- NOTE | 2025-07-02 22:32 | ER ---
Nurse's Notes [facility] Name: Kd Campbell Age: 70 yrs Sex: Male : 1955 Arrival Date: 07/02/2025 Time: 16:54 Bed 18 Private MD: Diagnosis: Hypertensive heart and chronic kidney disease with heart failure and stage 1 through stage 4 chronic kidney disease, or unspecified chronic kidney disease;Encounter for issue of repeat prescription;Headache Presentation: 07/02 17:07 Chief complaint: Patient states: HE IS OUT OF HIS BLOOD PRESSURE MEDICATIONS AND BP dd2 ELEVATED X 1 WEEK. REPORTS HAVING A HEADACHE. Coronavirus screen: At this time, the client does not indicate any symptoms associated with coronavirus-19. Ebola Screen: No symptoms or risks identified at this time. Initial Sepsis Screen: Does the patient meet any 2 criteria? No. Patient's initial sepsis screen is negative. Does the patient have a suspected source of infection? No. Patient's initial sepsis screen is negative. Risk Assessment: Do you want to hurt yourself or someone else? Patient reports no desire to harm self or others. Onset of symptoms was June 24, 2025. 17:07 Method Of Arrival: Ambulatory dd2 17:07 Acuity: VOLODYMYR 3 dd2 Triage Assessment: 17:09 General: Appears in no apparent distress. uncomfortable, Behavior is cooperative, dd2 appropriate for age, anxious. Pain: Complains of pain in HEAD. Cardiovascular: Reports ELEVATED BP Denies chest pain. Historical: - Allergies: 17:09 bee venom (honey bee); dd2 17:09 Clonidine; dd2 17:09 Depakote; dd2 17:09 HYDRALAZINE; dd2 17:09 Lexapro; dd2 17:09 PENICILLINS; dd2 17:09 Wellbutrin; dd2 - Home Meds: 17:09 carvedilol 25 mg Oral tab 1 tab 2 times per day [Active]; nifedipine 30 mg Oral tablet dd2 twice a day [Active]; - PMHx: 17:09 Anxiety; Hypertension; MANIC DEPRESSION; pnemonia; dd2 - PSHx: 17:09 None; dd2 - Immunization history:: Adult Immunizations unknown. - Infectious Disease History:: Denies. - Social history:: Smoking status: Patient reports the use of cigarette tobacco products, smokes one-half pack cigarettes per day. Screenin:36 [facility] ED Fall Risk Assessment (Adult) History of falling in the last 3 months, iw including since admission No falls in past 3 months (0 pts) Confusion or Disorientation No (0 pts) Intoxicated or Sedated No (0 pts) Impaired Gait No (0 pts) Mobility Assist Device Used No (0 pt) Altered Elimination No (0 pt) Score/Fall Risk Level 0 - 2 = Low Risk Oriented to surroundings, Maintained a safe environment. Abuse screen: Denies threats or abuse. Denies injuries from another. Nutritional screening: No deficits noted. Tuberculosis screening: No symptoms or risk factors identified. Assessment: 17:37 General: Appears in no apparent distress. Behavior is calm, cooperative. Pain: iw Complains of pain in chest. Neuro: Level of Consciousness is awake, alert, obeys commands, Oriented to person, place, time, situation, Moves all extremities. Full function. Cardiovascular: Patient's skin is warm and dry. Respiratory: Respiratory effort is even, unlabored, Respiratory pattern is regular, symmetrical. 18:12 GI: No signs and/or symptoms were reported involving the gastrointestinal system. : kj2 No signs and/or symptoms were reported regarding the genitourinary system. 19:15 Reassessment: Patient appears in no apparent distress at this time. Patient and/or kj2 family updated on plan of care and expected duration. Pain level reassessed. Patient is alert, oriented x 3, equal unlabored respirations, skin warm/dry/pink. 20:15 Reassessment: Patient appears in no apparent distress at this time. Patient and/or kj2 family updated on plan of care and expected duration. Pain level reassessed. 21:15 Reassessment: Patient appears in no apparent distress at this time. Patient and/or kj2 family updated on plan of care and expected duration. Pain level reassessed. 22:15 Reassessment: Patient appears in no apparent distress at this time. Patient and/or kj2 family updated on plan of care and expected duration. Pain level reassessed. Patient is alert, oriented x 3, equal unlabored respirations, skin warm/dry/pink. 23:03 Reassessment: provider aware of vital signs. kj Vital Signs: 17:07 BP 252 / 103; Pulse 108; Resp 17; Temp 98.3; Pulse Ox 99% on R/A; Weight 86.18 kg; dd2 Height 5 ft. 6 in. ; Pain 3/10; 17:36 BP 211 / 91; Pulse 77; Resp 16; Pulse Ox 100% on R/A; iw 18:00 BP 195 / 91; Pulse 74; Resp 18; Pulse Ox 98% on R/A; kj2 18:18 BP 208 / 89; Pulse 65; Resp 20; Pulse Ox 100% on R/A; kj2 19:22 BP 233 / 81; Pulse 64; Resp 18; Pulse Ox 100% ; kj2 19:25 BP 217 / 80; Pulse 66; Resp 18; Pulse Ox 100% ; kj2 20:31 BP 213 / 85; Pulse 72; Resp 18; Pulse Ox 100% on R/A; kj2 20:55 BP 202 / 81; Pulse 65; Resp 18; kj2 21:46 BP 183 / 72; Pulse 68; Resp 18; Pulse Ox 98% ; kj2 22:50 BP 181 / 70; Pulse 70; Resp 20; Temp 98.2; Pulse Ox 100% ; kj2 17:07 Body Mass Index 30.67 (86.18 kg, 167.64 cm) dd2 17:07 Pain Scale: Adult dd2 ED Course: 16:59 Patient arrived in ED. cj3 16:59 Sendy Ornelas MD is Attending Physician. sp3 16:59 Jameson Pennington PA-C is PHCP. cp 17:09 Triage completed. dd2 17:09 Arm band placed on right wrist. dd2 17:30 Chantelle Morgan, MATTHEW is Primary Nurse. iw 17:31 EKG done, by ED staff, reviewed by Jameson Pennington PA-C. rk3 17:36 Initial lab(s) drawn, by ok, sent to lab. Inserted saline lock: 20 gauge in left iw antecubital area, using aseptic technique. Blood collected. Flushed with 10 mL NS. 17:53 Sendy Ornelas MD is Attending Physician. cp 17:56 Radhika Richardson, MATTHEW is Primary Nurse. kj2 18:12 XRAY Chest (1 view) In Process Unspecified. EDMS 18:13 Patient has correct armband on for positive identification. Bed in low position. Call kj2 light in reach. Provided Education on: call light. 18:13 No provider procedures requiring assistance completed. kj2 18:46 CT Head Brain wo Cont In Process Unspecified. EDMS 22:31 Ben Valdez DO is Referral Physician. cp 22:36 IV discontinued, intact, bleeding controlled, No redness/swelling at site. Pressure kj2 dressing applied. Administered Medications: 18:06 Drug: Labetalol IV 20 mg IV at calculated rate once over 2 mins Route: IV; Rate: kj2 calculated rate; Infused Over: 2 mins; Site: left antecubital; 22:34 Follow up: IV Status: Completed infusion; IV Intake: 4ml kj2 20:00 Not Given (Patient Refused): [id number] mg IVP once kj2 20:00 Drug: Diazepam PO 5 mg PO once Route: PO; kj2 22:34 Follow up: Response: No adverse reaction kj2 21:01 Drug: Diltiazem IVP 20 mg IVP once; Over 2 minutes Route: IVP; Site: left antecubital; kj2 22:35 Follow up: Response: No adverse reaction kj2 22:34 Drug: carvedilol PO 25 mg PO once; administer with food Route: PO; kj2 22:35 Follow up: Response: Medication administered at discharge. kj2 23:03 Follow up: Response: No adverse reaction kj2 Medication: 17:36 VIS not applicable for this client. iw Intake: 22:34 IV: 4ml; Total: 4ml. kj2 Outcome: 22:31 Discharge ordered by . cp 22:36 Discharged to home ambulatory, kj2 22:36 Condition: stable 22:36 Discharge instructions given to patient, Instructed on discharge instructions, follow up and referral plans. Demonstrated understanding of instructions, follow-up care, 23:04 Patient left the ED. kj2 Signatures: Dispatcher [employer] EDMS Chantelle Morgan RN RN iw Jameson Pennington, PA-C PA-C Sendy Nicholas MD MD sp3 Radhika Richardson RN RN kj2 JASBIR ROBERTSON RN RN dd2 Teto Castillo rk3 Manisha Roche cj3
[2025-07-02 23:33] VITALS: BP 181/70; TEMP 98.2; O2SAT 100
== END 2025-07-02 23:04 | disposition home or self-care (01) ==
LOC: ER 16:54
DX: I13.0 Hypertensive heart and chronic kidney disease with heart failure and stage 1 through stage 4 chronic kidney disease, or unspecified chronic kidney disease (principal); N18.1 Chronic kidney disease, stage 1; I50.9 Heart failure, unspecified; Z76.0 Encounter for issue of repeat prescription; F17.210 Nicotine dependence, cigarettes, uncomplicated
CPT/HCPCS: 36415; 70450; 71045; 80048; 80076; 80307; 81001; 83735; 83880; 84484; 85025; 85610; 93005; 96365; 96366; 96375; 99284; J0360